=== PATIENT | female | born 1955 | race Caucasian/White ===

== ENCOUNTER → 2016-08-02 | Outpatient (CLI) | payer MEDICARE, OTHER ==
[~2016-08-02] MED LIST: ACHD5005 PO; ALLP300T PO; ASPI-587 PO; ATEN25TA PO; ATENOLOL; ATOR80TA2 PO; ATOR80TA76 PO; BENADRYL; BISA-65 PO; CEFU250T11 PO; CFR250T PO; CHOL2000 PO; CINA60TA PO; COLE3.75 PO; CYCL10TA9 PO; DCS100C PO; DOCU100C37 PO; E400C; E400C PO; ENLP5T PO; EXEN2PEN SQ; EXEN2VIA SQ; EZET10TA5; EZET10TA5 PO; FENOFIBRATE 130 MG PO; FISH OIL; FLUC200T45 PO; HCT25T; HCT25T PO; HYDR-3583 PO; HYDR1TAB PO; HYOS0.1216 PO; HYOS0.1217 PO; INSA70301U SC; INSA70301U SQ; INSU100C4 SQ; INSU100V6 SQ; ISOS60TA3 PO; LANTUS SQ; LOSA25TA5 PO; LOVAZA; LUBI8CAP PO; MECL25TA56 PO; MELA1TAB11 PO; MELA3TAB36 PO; METF-380 PO; METFORMIN PO; METO-310 PO; METO10TA3 PO; METR500T PO; MTF500T PO; NF-URO10 PO; NITR-33 PO; NITR0.4T SL; NITR100C3 PO; OMEG1CAP51 PO; ONDN4T PO; OXYC1CAP3 PO; OXYC1TAB87 PO; PHEN200T27 PO; PRAV80TA2 PO; PRAVASTATIN 10MG PO; RANO10003 PO; SITA100T PO; SITA1TAB6 PO; SULF1TAB38 PO; TICA90TA PO; [UNRECOGNIZED DRUG - OTHER]; [UNRECOGNIZED DRUG - OTHER]; antara PO
--- NOTE | 2016-08-03 19:58 | Diagnostic Imaging Report ---
Bilateral screening mammogram The current study was also evaluated with a Computer Aided Detection (CAD) system. Indication: Screening. No current complaints stated on the questionnaire. COMPARISON: 02/07/13 FINDINGS: The breasts are composed of scattered fibroglandular densities. Benign-appearing calcifications seen. Allowing for technique and positional differences, no suspicious change is seen. IMPRESSION: No significant change. ACR BI-RADS Category 2: Benign findings. Result letter will be mailed to the patient. Note: At least 10% of breast cancer is not imaged by mammography. Dictated by: Dictated on workstation # [id number]
== END ==
LOC: RAD 14:26
PROVIDERS: ATTEND Family Medicine
DX: Z12.31 Encounter for screening mammogram for malignant neoplasm of breast (principal)
CPT/HCPCS: 77067

== ENCOUNTER 2018-01-15 23:27 | Emergency (ER) | payer MEDICARE, OTHER ==
[~2018-01-15] VITALS: Ht 170.2 cm; Wt 99.2 kg
[2018-01-15] MEDS ORDERED: CLOP75TA28 (23:41)
[2018-01-15] MEDS ORDERED: FURO20TA4 (23:41)
[2018-01-15] MEDS ORDERED: ALLO300T2 (23:41)
[2018-01-16] MEDS ORDERED: RX-ONDANSETRON 4 MG ODT (ZOFRAN) PPK #4 SL STA (00:24)
[2018-01-16] MEDS ORDERED: PROMETHAZINE INJ 25 MG/ML (PHENERGAN) AMP IVP ONE (00:30)
[2018-01-16] MEDS ORDERED: ONDANSETRON 4 MG/2 ML (SDV) Z0FRAN IVP ONE (00:30)
[2018-01-16] MEDS ORDERED: RX-HYDROCODONE/APAP 5/325 MG #4 TAB PK PO PRN (00:30)
[2018-01-16] MEDS ORDERED: morphine INJ 10 MG/ML 1ML (SYR OR VIAL) IVP ONE (00:30)
[2018-01-16] MEDS ORDERED: PROM12.59 PO (01:03)
[2018-01-16] MEDS ORDERED: HYDR-3812 PO (01:03)
--- NOTE | 2018-01-16 01:03 | ED Fall/Injury ---
General Chief Complaint: Upper Extremity Stated Complaint: FALL Nursing Triage Note: left wrist pain/deformity s/p fall Source: patient Exam Limitations: no limitations History of Present Illness Date Seen by Provider: Jan 15, 2018 Time Seen by Provider: 23:30 Initial Comments This 62-year-old woman presents to the emergency room via EMS after slipping and falling while walking to her car. She apparently slipped on some ice. She landed on her left wrist resulting in pain and a injury with deformity. She denies striking her head or any other significant injury. Allergies and Home Medications Allergies Coded Allergies: celecoxib (Unverified Allergy, Unknown, 03/08/15) levofloxacin (Verified Allergy, Unknown, 03/08/15) isosorbide (Verified Adverse Reaction, Unknown, severe hypotension, 03/08/15 ) Home Medications Aspirin 81 Mg Tablet.dr, 81 MG PO DAILY, (Reported) Atenolol 25 Mg Tablet, 25 MG PO BID, (Reported) Atorvastatin Calcium 80 Mg Tablet, 80 MG PO HS, (Reported) Bisacodyl 5 Mg Tablet.dr, 10-15 MG PO WEEKLY PRN for CONSTIPATION, (Reported) Cinacalcet HCl 60 Mg Tablet, 60 MG PO DAILY, (Reported) Docusate Sodium 100 Mg Capsule, 200 MG PO WEEKLY PRN for CONSTIPATION, (Reported ) Exenatide Microspheres 2 Mg/0.65 Ml Pen.injctr, 2 MG SQ EVERY SUNDAY, (Reported) Hydrocodone/Acetaminophen 1 Each Tablet, 1 EACH PO Q4-6HR PRN for PAIN-MODERATE Prescribed by: ISHA LUNDY on 01/16/18 0103 Insuln Asp Prt/Insulin Aspart 1 Unit/0.01 Ml Susp, 105 UNITS SQ DAILY, (Reported ) Insuln Asp Prt/Insulin Aspart 1 Unit/0.01 Ml Susp, 100 UNITS SC HS, (Reported) Losartan Potassium 25 Mg Tablet, 25 MG PO DAILY, (Reported) Meclizine Hcl 25 Mg Tablet, 25 MG PO DAILY PRN for DIZZINESS, (Reported) Metoclopramide HCl 10 Mg Tablet, 10 MG PO DAILY, (Reported) Nitroglycerin 0.4 Mg Tab.subl, 0.4 MG SL UD PRN for CHEST PAIN, (Reported) Promethazine HCl 12.5 Mg Tablet, 12.5 MG PO Q6H PRN for NAUSEA/VOMITING Prescribed by: ISHA LUNDY on 01/16/18 0103 Ranolazine 1,000 Mg Tab.sr.12h, 1,000 MG PO BID, (Reported) Ticagrelor 90 Mg Tablet, 90 MG PO BID, (Reported) Patient Home Medication List Home Medication List Reviewed: Yes Review of Systems Review of Systems Constitutional: no symptoms reported Eyes: No Symptoms Reported Ears, Nose, Mouth, Throat: no symptoms reported Respiratory: no symptoms reported Cardiovascular: no symptoms reported Gastrointestinal: no symptoms reported Genitourinary: no symptoms reported Musculoskeletal: see HPI Skin: no symptoms reported Psychiatric/Neurological: No Symptoms Reported Past Wvkefvb-Pxydwn-Ttjsvb Hx Past Med/Social Hx: Reviewed Nursing Past Med/Soc Hx Patient Social History Alcohol Use: Denies Use Recreational Drug Use: No Smoking Status: Never a Smoker 2nd Hand Smoke Exposure: No Recent Foreign Travel: No Contact w/Someone Who Travel: No Recent Infectious Disease Expo: No Recent Hopitalizations: No Immunizations Up To Date Tetanus Booster (TDap): Less than 5yrs Date of Pneumonia Vaccine: Jan 17, 2013 Date of Influenza Vaccine: Dec 03, 2012 Seasonal Allergies Seasonal Allergies: No Past Medical History Surgeries: Yes (HYSTERECTOMY 1997, LAP. PRIETO 5-6 YRS. AGO, T&A-49 YRS. 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) Vertigo : No Reproductive Disorders: No Female Reproductive Disorders: Denies Sexually Transmitted Disease: No HIV/AIDS: No Genitourinary: Yes Kidney Stones Gastrointestinal: Yes (constipation) Gastroesophageal Reflux, Chronic Constipation Musculoskeletal: Yes (arthritis) Arthritis, Back Injury Endocrine: Yes Diabetes, Insulin dep Chronic Ear Infection Hearing Impairment: Hard of Hearing Cancer: No Psychosocial: No Integumentary: No (healing cyst removal) Blood Disorders: No Adverse Reaction/Blood Tranf: No Family Medical History Cancer (lung and ovarian) 09 BROTHER, Onset:30's - 40 09 SISTER, Onset:60 years & older Congenital heart disease (mitral valve prolapse) 09 SISTER 09 SISTER Congestive heart failure 03 FATHER, Onset:60 years & older 03 MOTHER, Onset:50's - 60 09 SISTER, Onset:60 years & older Family history: Arthritis 03 MOTHER, Onset:60 years & older Family history: Diabetes mellitus 03 FATHER, Onset:60 years & older 09 SISTER, Onset:50's - 60 Family history: Gastrointestinal disease 03 FATHER, Onset:50's - 60 Hereditary disease (HTN) 09 SISTER, Onset:40's - 50 History of - disorder (Urinary problems) 09 SISTER, Onset:60 years & older 09 SISTER, Onset:20's - 25 History of - respiratory disease (asthma) 09 SISTER Hypercholesterolemia 09 SISTER, Onset:50's - 60 Psychotic disorder (anxiety) 09 SISTER, Onset:30's - 40 Heart Disease Physical Exam Vital Signs Vital Signs - First Documented 01/15/18 23:27 Temp 98.7 Pulse 73 Resp 18 B/P (MAP) 215/116 (149) Pulse Ox 97 O2 Delivery Room Air Capillary Refill : Less Than 3 Seconds Height, Weight, BMI Height: 5'7.00" Weight: 218lbs. 9.6oz. 99.185072ih; 34.45 BMI Method:Estimated General Appearance: WD/WN, mild distress HEENT: normal ENT inspection Neck: normal inspection Cardiovascular: regular rate, rhythm, no edema, no murmur Respiratory: lungs clear, normal breath sounds, no respiratory distress Extremities: other (pain, deformity, and swelling of the left wrist. Radial pulse intact. Movement, sensation, and capillary refill intact in the fingers. No significant tenderness in the hand or elbow.) Neurologic/Psychiatric: clinical safety specialist II-XII nml as tested, no motor/sensory deficits, alert, normal mood/affect, oriented x 3 Skin: normal color, warm/dry J Luis Coma Score Best Eye Response: (4) Open Spontaneously Best Verbal Response: (5) Oriented Best Motor Response: (6) Obeys Commands Robinson Total: 15 Procedures/Interventions Splinting and Joint Reduction : Pre-Proc Neuro Vasc Exam: normal Post-Proc Neuro Vasc Exam: normal Pre-Procedure NV Exam: Yes post joint reduction film: joint reduced (slight reduction noted on postreduction x-ray) Progress Patient was treated with IV narcotic pain medications and antiemetics. Sugar tong splint was applied with attempt to reduce the fracture and the volar direction. Splint application was successful with intact sensation and radial pulse after application. Splint was placed in a sling. Hand-Made Type: fiberglass Progress/Results/Core Measures Results/Orders My Orders Orders - ISHA BRAVO MD Wrist, Left, 3 Views Or More (01/15/18 23:35) Rx-Hydrocodone/Apap 5-325 Mg (Rx-Vicodin (01/16/18 00:30) Morphine Injection (Morphine Injection (01/16/18 00:30) Ondansetron Injection (Zofran Injectio (01/16/18 00:30) Rx-Ondansetron Po (Rx-Zofran Po) (01/16/18 00:24) Promethazine Injection (Phenergan Injec (01/16/18 00:30) Sling (01/16/18 01:10) Wrist, Left, 3 Views Or More (01/16/18 00:57) Iv Push Warp Changer Ed (01/15/18 ) Medications Given in ED Vital Signs/I&O 01/15/18 01/16/18 01/16/18 23:27 00:37 01:15 Temp 98.7 98.7 98.5 Pulse 73 67 Resp 18 16 B/P (MAP) 215/116 (149) 157/98 (117) Pulse Ox 97 95 O2 Delivery Room Air Room Air Blood Pressure Mean: 149 Progress Progress Note : Progress Note Fractures were identified on x-ray. Case was discussed with Dr. Villa. A sugar tong splint was applied after treatment with pain medication and antiemetics. An attempt to provide some level are reduction was made during splint application. There was minimal improvement in angulation on postreduction x-ray. Diagnostic Imaging Diagonstic Imaging: Xray Plain Films/CT/US/NM/MRI: other (left wrist) Comments Left wrist x-ray viewed by me. Report not yet available. There is a comminuted , impacted, angulated and displaced fracture of the left distal radius. Diagonstic Imaging: Xray Plain Films/CT/US/NM/MRI: other (left wrist) Comments There was slight improvement in angulation after attempt at reduction of the left wrist fracture and splint placement. Departure Impression Primary Impression: Left wrist fracture Qualified Codes: S62.102A - Fracture of unspecified carpal bone, left wrist, initial encounter for closed fracture Additional Impression: Fall on same level from tripping as cause of accidental injury Disposition: 01 HOME, SELF-CARE Condition: Improved Departure-Patient Inst. Decision time for Depature: 00:20 Referrals: PATRICE RODNEY MD (PCP) Primary Care Physician BRITTANY POOL MD (Family) Primary Care Physician FAUSTINO VILLA MD Patient Instructions: SPLINT CARE, Wrist Fracture (DC) Add. Discharge Instructions: For more mild pain you may take Tylenol (acetaminophen) up to 1000 mg every 6 hours as needed. For more severe pain you may take hydrocodone as prescribed. For nausea take Zofran (ondansetron) dissolved under the tongue every 4 hours as needed. Follow up with Dr. Villa as soon as possible. Keep the left arm in the sling and splint. You may elevate on pillows and ice in 20 minute intervals to help with pain and swelling. Keep the splint clean and dry. Return to care if you have any problems or concerns. All discharge instructions reviewed with patient and/or family. Voiced understanding. Scripts Promethazine HCl (Promethazine HCl) 12.5 Mg Tablet 12.5 MG PO Q6H PRN for NAUSEA/VOMITING, #10 TAB Prov: ISHA BRAVO MD 01/16/18 Hydrocodone/Acetaminophen (Hydrocodone-Acetamin 5-325 mg) 1 Each Tablet 1 EACH PO Q4-6HR PRN for PAIN-MODERATE, #10 TAB Prov: ISHA BRAVO MD 01/16/18 Copy Copies To 1: FAUSTINO VILLA MD, JOSHUA T MD Jan 16, 2018 01:03
[2018-01-16 01:15] VITALS: BP 157/98
--- NOTE | 2018-01-16 06:48 | Diagnostic Imaging Report ---
CLINICAL INDICATION: Patient with post reduction of left wrist fracture. EXAM: X-ray of the left wrist, three views. COMPARISON: X-ray left wrist dated 01/15/2018 at 2348 hours. FINDINGS AND IMPRESSION: 1: There is slight improved alignment and position of the comminuted impacted intra-articular fracture of the distal radius. There is persistent distraction and impaction of the fracture fragment seen. There is 4 mm of positive ulnar variance again seen. 2: Interval placement of cast material seen overlying the left wrist. Dictated by: Dictated on workstation # [id number]
--- NOTE | 2018-01-16 06:49 | Diagnostic Imaging Report ---
Clinical indication: Patient fell and complains of left wrist pain. Exam: X-ray of the left wrist, 3 views. Comparison: None. Findings and impression: 1: There is a severely comminuted, impacted, intra-articular fracture of distal radius. There is roughly 1.8 cm of impaction of the fracture and at least 3 mm of radial directed subluxation of the distal fracture fragment. There is volar apex angulation of the distal radial fracture fragments with distraction of the fracture in a ventral and dorsal directions. There is soft tissue swelling adjacent to the wrist. 2: There is roughly 8 mm of positive ulnar variance from the impacted fracture of the distal radius. There is concern for disruption of the distal radial ulnar joint. 3: There is no other fracture seen on this exam. 4: There is degenerative spurs and sclerosis of the first CMC joint. Dictated by: Dictated on workstation # [id number]
== END 2018-01-16 01:15 | disposition home or self-care (01) ==
LOC: EDUNIT# 23:27 → ER 23:28
DX: S52.572A Other intraarticular fracture of lower end of left radius, initial encounter for closed fracture (principal); G47.30 Sleep apnea, unspecified; I25.2 Old myocardial infarction; I25.10 Atherosclerotic heart disease of native coronary artery without angina pectoris; E78.00 Pure hypercholesterolemia, unspecified; I10 Essential (primary) hypertension; K21.9 Gastro-esophageal reflux disease without esophagitis; E11.9 Type 2 diabetes mellitus without complications; Z80.1 Family history of malignant neoplasm of trachea, bronchus and lung; Z80.41 Family history of malignant neoplasm of ovary; Z82.49 Family history of ischemic heart disease and other diseases of the circulatory system; Z87.19 Personal history of other diseases of the digestive system; Z87.442 Personal history of urinary calculi; Z88.8 Allergy status to other drugs, medicaments and biological substances; Z79.82 Long term (current) use of aspirin; Z79.4 Long term (current) use of insulin; Z90.710 Acquired absence of both cervix and uterus; Z90.89 Acquired absence of other organs; W01.0XXA Fall on same level from slipping, tripping and stumbling without subsequent striking against object, initial encounter
CPT/HCPCS: 25565; 29105; 73110; 96374; 96375

== ENCOUNTER → 2018-01-17 | Outpatient (CLI) | payer MEDICARE, OTHER ==
[~2018-01-17] MED LIST changes: +ALLO300T2; +CLOP75TA28; +FURO20TA4; +HYDR-3812 PO; +PROM12.59 PO
== END | disposition home or self-care (01) ==
LOC: PREOP 05:36
PROVIDERS: ATTEND Orthopaedic Surgery
DX: Z01.818 Encounter for other preprocedural examination (principal)

== ENCOUNTER 2018-06-05 17:13 | Emergency (ER) | payer MEDICARE, OTHER ==
[~2018-06-05] VITALS: Ht 165.1 cm; Wt 81.6 kg
--- OUTSIDE RECORDS SUMMARY | 2018-06-05 17:21 | XMS REPORT | Continuity of Care Document ---
Author Author [facility] Organization [facility] Address Unknown Phone Unavailable Allergies Active Description Code Type Severity Reaction Onset Reported/Identified Relationship to Patient Clinical Status Yes celecoxib [id number] Drug Allergy Unknown N/A 03/08/2015 Yes isosorbide [id number] Drug Allergy Unknown severe hypotens 03/08/2015 Yes levofloxacin [id number] Drug Allergy Unknown N/A 03/08/2015 Medications There is no data. Problems Date Dx Coded Attending Type Code Diagnosis Diagnosed By 11/11/2009 Ot 592.0 11/11/2009 Ot 592.1 01/04/2010 Ot 250.00 01/04/2010 Ot 401.9 01/04/2010 Ot 553.3 01/04/2010 Ot 592.0 01/04/2010 Ot 592.1 02/03/2010 Ot 592.0 03/07/2010 Ot 250.02 03/07/2010 Ot 723.4 03/07/2010 Ot 784.0 03/07/2010 Ot V58.69 03/09/2010 Ot 592.0 04/11/2010 Ot 564.00 04/11/2010 Ot 569.42 10/13/2010 Ot 592.0 10/13/2010 Ot 599.0 10/13/2010 Ot 789.09 12/12/2011 Ot 564.00 UNSPEC CONSTIPATION 01/18/2013 FAUSTINO STEELE MD Ot 250.02 DIAB SHIRLENE WO COMPL, TYPE II OR UNSPEC TY 01/18/2013 FAUSTINO STEELE MD Ot 272.4 HYPERLIPIDEMIA NEC/NOS 01/18/2013 FAUSTINO STEELE MD Ot 308.1 STRESS REACTION, FUGUE 01/18/2013 FAUSTINO STEELE MD Ot 401.9 HYPERTENSION NOS 01/18/2013 FAUSTINO STEELE MD Ot 526.4 INFLAMMATION OF JAW 01/18/2013 FAUSTINO STEELE MD Ot 527.5 SIALOLITHIASIS 10/02/2013 MAYRA LOPEZ, [facility] T Ot 728.87 MUSCLE WEAKNESS (GENERALIZED) 10/02/2013 MAYRA LOPEZ, KAPIL Burgess Ot 780.4 DIZZINESS AND GIDDINESS 10/02/2013 KAPIL NUNEZ MD Ot V57.1 PHYSICAL THERAPY NEC 12/21/2013 BRITTANY POOL MD Ot 250.00 DIAB SHIRLENE WO COMPL, TYPE II OR UNSPEC TY 12/21/2013 BRITTANY POOL MD Ot 272.4 HYPERLIPIDEMIA NEC/NOS 12/21/2013 BRITTANY POOL MD Ot 401.9 HYPERTENSION NOS 12/21/2013 BRITTANY POOL MD Ot 410.11 AC MYOCARD INFARC OTH ANTER WALL,INIT EP 12/21/2013 BRITTANY POOL MD Ot 410.71 AC MYOCARDIAL INFARCT,SUBENDO INFARCT,IN 12/21/2013 BRITTANY POOL MD Ot 414.01 CORONARY ATHEROSCLEROSIS OF [place] CORON 12/21/2013 BRITTANY POOL MD Ot 427.9 CARDIAC DYSRHYTHMIA NOS 12/21/2013 BRITTANY POOL MD Ot 716.90 ARTHROPATHY NOS-UNSPEC 12/21/2013 BRITTANY POOL MD Ot V15.88 HISTORY OF FALL 12/21/2013 BRITTANY POOL MD Ot V58.67 LONG-TERM (CURRENT) USE OF INSULIN 02/17/2014 PATRICE RODNEY MD Ot 786.2 02/23/2014 BLADIMIR STEVENSON MD Ot 592.9 03/27/2014 BRITTANY POOL MD Ot 410.92 AC MYOCARDIAL INFARCT,UNSPEC SITE,SUBSEQ 03/27/2014 BRITTANY POOL MD Ot V57.89 REHABILITATION PROC NEC 03/30/2014 BRITTANY POOL MD Ot 410.92 03/30/2014 BRITTANY POOL MD Ot V57.89 04/27/2014 BLADIMIR STEVENSON MD Ot 592.9 URINARY CALCULUS NOS 05/23/2014 PATRICE RODNEY MD Ot 250.00 DIAB SHIRLENE WO COMPL, TYPE II OR UNSPEC TY 05/23/2014 PATRICE RODNEY MD Ot 272.4 HYPERLIPIDEMIA NEC/NOS 05/23/2014 PATRICE RODNEY MD Ot 327.23 OBSTRUCTIVE SLEEP APNEA (ADULT) (PEDIATR 05/23/2014 PATRICE RODNEY MD Ot 403.90 HYPTNSV CHR KID DIS, UNSPEC, W CHR KD ST 05/23/2014 PATRICE RODNEY MD Ot 414.01 CORONARY ATHEROSCLEROSIS OF [place] CORON 05/23/2014 PATRICE RODNEY MD Ot 585.9 CHRONIC KIDNEY DISEASE, UNSPECIFIED 05/23/2014 PATRICE RODNEY MD Ot 729.5 PAIN IN LIMB 05/23/2014 PATRICE RODNEY MD Ot 780.79 OTH MALAISE FATIGUE 05/23/2014 PATRICE RODNEY MD Ot V04.81 ND FOR PROPHYLACTIC VACCIN AND INOCULATI 05/23/2014 PATRICE RODNEY MD Ot V58.67 LONG-TERM (CURRENT) USE OF INSULIN 02/05/2015 MARIETTA ENAMORADO MD Ot I20.9 02/17/2015 PATRICE RODNEY MD, Ot G47.33 OBSTRUCTIVE SLEEP APNEA (ADULT) (PEDIATR 02/17/2015 PATRICE RODNEY MD Ot G47.61 PERIODIC LIMB MOVEMENT DISORDER 03/03/2015 MARIETTA ENAMORADO MD Ot I20.9 03/08/2015 MARIETTA ENAMORADO MD Ot I20.9 03/08/2015 MARIETTA ENAMORADO MD Ot I20.9 03/08/2015 Ot 592.0 03/08/2015 Ot 592.9 03/08/2015 Ot 592.0 03/08/2015 Ot 592.9 03/09/2015 BRITTANY POOL MD Ot E11.9 TYPE 2 DIABETES MELLITUS WITHOUT COMPLIC 03/09/2015 BRITTANY POOL MD Ot E78.5 HYPERLIPIDEMIA, UNSPECIFIED 03/09/2015 BRITTANY POOL MD Ot I12.9 HYPERTENSIVE CHRONIC KIDNEY DISEASE W ST 03/09/2015 BRITTANY POOL MD Ot I21.4 NON-ST ELEVATION (NSTEMI) MYOCARDIAL INF 03/09/2015 BRITTANY POOL MD Ot I25.119 ATHSCL HEART DISEASE OF [place] COR ART W 03/09/2015 BRITTANY POOL MD Ot I47.1 SUPRAVENTRICULAR TACHYCARDIA 03/09/2015 BRITTANY POOL MD Ot K59.00 CONSTIPATION, UNSPECIFIED 03/09/2015 BRITTANY POOL MD Ot N18.9 CHRONIC KIDNEY DISEASE, UNSPECIFIED 03/09/2015 CORINE LOPEZ, BRITTANY Oconnro Ot R00.2 PALPITATIONS 03/09/2015 CORINE LOPEZ, BRITTANY Oconnor Ot Z79.4 [employer] (CURRENT) USE OF INSULIN 03/11/2015 EMILIE PA, BETHANIE Jimenez Ot E11.9 03/11/2015 EMILIE PA, BETHANIE K Ot E78.2 03/11/2015 EMILIE PA, BETHANIE K Ot I10 03/11/2015 EMILIE PA, BETHANIE K Ot I25.10 03/11/2015 EMILIE PA, BETHANIE K Ot Z79.4 03/17/2015 KELSEA LOPEZ, MARIETTA Palomino Ot I20.9 03/17/2015 EMILIE PA, BETHANIE K Ot E11.9 03/17/2015 EMILIE PA, BETHANIE K Ot E78.2 03/17/2015 EMILIE PA, BETHANIE K Ot I10 03/17/2015 EMILIE PA, BETHANIE K Ot I25.10 03/17/2015 EMILIE PA, BETHANIE Jimenez Ot Z79.4 04/30/2015 Ot 592.0 04/30/2015 Ot V67.09 04/30/2015 Ot 592.0 04/30/2015 Ot 252.00 04/30/2015 Ot 592.0 04/30/2015 Ot 592.1 04/30/2015 Ot V67.09 04/30/2015 Ot 592.0 04/30/2015 Ot 250.00 04/30/2015 Ot 433.10 04/30/2015 Ot 272.4 04/30/2015 Ot 401.9 04/30/2015 Ot 591 04/30/2015 Ot 594.1 04/30/2015 Ot 785.6 04/30/2015 Ot 789.09 04/30/2015 Ot 250.00 04/30/2015 Ot 268.9 04/30/2015 Ot 272.4 04/30/2015 Ot 401.9 04/30/2015 Ot 592.0 04/30/2015 Ot 789.2 04/30/2015 Ot 272.4 04/30/2015 Ot 272.4 04/30/2015 Ot V72.84 04/30/2015 Ot 272.4 04/30/2015 Ot 250.00 04/30/2015 Ot 592.9 04/30/2015 Ot 729.5 04/30/2015 Ot 272.4 04/30/2015 RASHAUN LOPEZ, PATRICE Oconnor Ot 527.5 04/30/2015 GEOFF LOPEZ, RENE Ot 706.2 04/30/2015 GEOFF LOPEZ, RENE Ot V72.63 04/30/2015 GEOFF LOPEZ, RENE Ot V74.8 04/30/2015 JES LOPEZ, PHYLLIS G Ot V76.12 04/30/2015 RASHAUN LOPEZ, PATRICE Oconnor Ot 715.36 04/30/2015 RASHAUN LOPEZ, PATRICE Oconnor Ot 719.46 04/30/2015 RASHAUN LOPEZ, PATRICE Oconnor Ot 719.47 04/30/2015 RASHAUN OLPEZ, PATRICE Oconnor Ot 824.8 04/30/2015 RASHAUN LOPEZ, PATRICE Oconnor Ot E888.9 04/30/2015 RASHAUN LOPEZ, PATRICE Oconnor Ot V15.88 04/30/2015 RASHAUN LOPEZ, PATRICE Oconnor Ot 298.9 04/30/2015 RASHAUN LOPEZ, PATRICE Oconnor Ot 780.93 04/30/2015 RASHAUN LOPEZ, PATRICE Oconnor Ot 793.0 04/30/2015 RASHAUN LOPEZ, PATRICE Oconnor Ot 298.9 04/30/2015 RASHAUN LOPEZ, PATRICE Oconnor Ot 780.93 04/30/2015 RASHAUN LOPEZ, PATRICE Oconnor Ot 786.2 04/30/2015 Ot 592.9 04/30/2015 MARIETTA ENAMORADO MD Ot I20.9 04/30/2015 BETHANIE HUITRON Ot E11.9 04/30/2015 BETHANIE HUITRON Ot E78.2 04/30/2015 BETHANIE HUITRON Ot I10 04/30/2015 BETHANIE HUITRON Ot I25.10 04/30/2015 BETHANIE HUITRON Ot Z79.4 05/04/2015 MARIETTA ENAMORADO MD Ot I20.9 ANGINA PECTORIS, UNSPECIFIED 05/10/2015 Ot 592.0 05/10/2015 Ot 252.00 05/10/2015 Ot 592.0 05/10/2015 Ot 592.1 05/10/2015 Ot V67.09 05/10/2015 Ot 592.0 05/10/2015 Ot 250.00 05/10/2015 Ot 433.10 05/10/2015 Ot 272.4 05/10/2015 Ot 401.9 05/10/2015 Ot 591 05/10/2015 Ot 594.1 05/10/2015 Ot 785.6 05/10/2015 Ot 789.09 05/10/2015 Ot 250.00 05/10/2015 Ot 268.9 05/10/2015 Ot 272.4 05/10/2015 Ot 401.9 05/10/2015 Ot 592.0 05/10/2015 Ot 789.2 05/10/2015 Ot 272.4 05/10/2015 Ot 272.4 05/10/2015 Ot V72.84 05/10/2015 Ot 272.4 05/10/2015 Ot 250.00 05/10/2015 Ot 592.9 05/10/2015 Ot 729.5 05/10/2015 Ot 272.4 05/10/2015 RASHAUN LOPEZ, PATRICE Oconnor Ot 527.5 05/10/2015 GEOFF LOPEZ, RENE Ot 706.2 05/10/2015 GEOFF LOPEZ, RENE Ot V72.63 05/10/2015 GEOFF LOPEZ, RENE Ot V74.8 05/10/2015 JES LOPEZ, PHYLLIS Mcgraw Ot V76.12 05/10/2015 RASHAUN LOPEZ, PATRICE Oconnor Ot 715.36 05/10/2015 RASHAUN LOPEZ, PATRICE Oconnor Ot 719.46 05/10/2015 PATRICE RODNEY MD Ot 719.47 05/10/2015 PATRICE RODNEY MD Ot 824.8 05/10/2015 PATRICE RODNEY MD Ot E888.9 05/10/2015 PATRICE RODNEY MD Ot V15.88 05/10/2015 PATRICE RODNEY MD Ot 298.9 05/10/2015 PATRICE RODNEY MD Ot 780.93 05/10/2015 PATRICE RODNEY MD Ot 793.0 05/10/2015 RASHAUN LOPEZ, PATRICE Oconnor Ot 298.9 05/10/2015 RASHAUN LOPEZ, PATRICE Oconnor Ot 780.93 05/10/2015 RASHAUN LOPEZ, PATRICE Oconnor Ot 786.2 05/10/2015 Ot 592.9 05/10/2015 KELSEA LOPEZ, MARIETTA Paolmino Ot I20.9 05/10/2015 EMILIE PA, BETHANIE K Ot E11.9 05/10/2015 EMILIE PA, BETHANIE K Ot E78.2 05/10/2015 EMILIE PA, BETHANIE K Ot I10 05/10/2015 PASTORA-ANTOINE PA, BETHANIE K Ot I25.10 05/10/2015 EMILIE PA, BETHANIE K Ot Z79.4 05/18/2015 KELSEA LOPEZ, MARIETTA Palomino Ot I20.9 ANGINA PECTORIS, UNSPECIFIED 07/27/2016 EMILIE PA, BETHANIE K Ot E11.9 TYPE 2 DIABETES MELLITUS WITHOUT COMPLIC 07/27/2016 EMILIE PA, BETHANIE K Ot E78.2 MIXED HYPERLIPIDEMIA 07/27/2016 EMILIE RAYMUNDO, BETHANIE K Ot I10 ESSENTIAL (PRIMARY) HYPERTENSION 07/27/2016 EMILIE PA, BETHANIE K Ot I25.10 ATHSCL HEART DISEASE OF [place] CORONARY 07/27/2016 EMILIE RAYMUNDO, BETHANIE K Ot Z79.4 [employer] (CURRENT) USE OF INSULIN 07/27/2016 MARIETTA ENAMORADO MD Ot I20.9 ANGINA PECTORIS, UNSPECIFIED 07/27/2016 EMILIE RAYMUNDO, BETHANIE K Ot E11.9 TYPE 2 DIABETES MELLITUS WITHOUT COMPLIC 07/27/2016 EMILIE RAYMUNDO, BETHANIE K Ot E78.2 MIXED HYPERLIPIDEMIA 07/27/2016 EMILIE RAYMUNDO, BETHANIE K Ot I10 ESSENTIAL (PRIMARY) HYPERTENSION 07/27/2016 EMILIE RAYMUNDO, BETHANIE K Ot I25.10 ATHSCL HEART DISEASE OF [place] CORONARY 07/27/2016 EMILIE RAYMUNDO, BETHANIE K Ot Z79.4 NURSING HOME (CURRENT) USE OF INSULIN 07/27/2016 MARIETTA ENAMORADO MD Ot I20.9 ANGINA PECTORIS, UNSPECIFIED 08/04/2016 PATRICE RODNEY MD Ot Z12.31 ENCNTR SCREEN MAMMOGRAM FOR MALIGNANT NE 08/04/2016 PATRICE RODNEY MD Ot Z12.31 ENCNTR SCREEN MAMMOGRAM FOR MALIGNANT NE 08/04/2016 PATRICE RODNEY MD Ot Z12.31 ENCNTR SCREEN MAMMOGRAM FOR MALIGNANT NE 08/04/2016 PATRICE RODNEY MD Ot Z12.31 ENCNTR SCREEN MAMMOGRAM FOR MALIGNANT NE 08/22/2016 PATRICE RODNEY MD, Ot Z12.31 ENCNTR SCREEN MAMMOGRAM FOR MALIGNANT NE 10/19/2016 BETHANIE HUITRON Ot E11.9 TYPE 2 DIABETES MELLITUS WITHOUT COMPLIC 10/19/2016 BETHANIE HUITRON Ot E78.2 MIXED HYPERLIPIDEMIA 10/19/2016 BETHANIE HUITRON Ot I10 ESSENTIAL (PRIMARY) HYPERTENSION 10/19/2016 BETHANIE HUITRON Ot I25.10 ATHSCL HEART DISEASE OF [place] CORONARY 10/19/2016 BETHANIE HUITRON Ot Z79.4 NURSING HOME (CURRENT) USE OF INSULIN 10/19/2016 Ot 592.0 CALCULUS OF KIDNEY 10/19/2016 Ot 789.2 SPLENOMEGALY 10/19/2016 Ot 272.4 HYPERLIPIDEMIA NEC/NOS 10/19/2016 Ot 272.4 HYPERLIPIDEMIA NEC/NOS 10/19/2016 Ot V72.84 EXAM PRE- OPERATIVE NOS 10/19/2016 Ot 272.4 HYPERLIPIDEMIA NEC/NOS 10/19/2016 Ot 250.00 DIAB SHIRLENE WO COMPL, TYPE II OR UNSPEC TY 10/19/2016 Ot 592.9 URINARY CALCULUS NOS 10/19/2016 Ot 729.5 PAIN IN LIMB 10/19/2016 Ot 272.4 HYPERLIPIDEMIA NEC/NOS 10/19/2016 PATRICE RODNEY MD Ot 527.5 SIALOLITHIASIS 10/19/2016 RENE TELLEZ MD Ot 706.2 SEBACEOUS CYST 10/19/2016 RENE TELLEZ MD Ot V72.63 PRE-PROCEDURAL LABORATORY EXAMINATION 10/19/2016 RENE TELLEZ MD Ot V74.8 SCREEN-BACTERIAL DIS NEC 10/19/2016 PHYLLIS ANDRE MD Ot V76.12 OTH SCREEN MAMMO-MALIGN NEOPLASM OF [place] 10/19/2016 PATRICE RODNEY MD, Ot 715.36 LOC OSTEOARTH NOS-L/LEG 10/19/2016 PATRICE RODNEY MD, Ot 719.46 JOINT PAIN-L/LEG 10/19/2016 PATRICE RODNEY MD, Ot 719.47 JOINT PAIN-ANKLE 10/19/2016 PATRICE RODNEY MD Ot 824.8 FX ANKLE NOS-CLOSED 10/19/2016 PATRICE RODNEY MD Ot E888.9 FALL NOS 10/19/2016 PATRICE RODNEY MD, Ot V15.88 HISTORY OF FALL 10/19/2016 PATRICE RODNEY MD Ot 298.9 PSYCHOSIS NOS 10/19/2016 PATRICE ORDNEY MD Ot 780.93 MEMORY LOSS 10/19/2016 PATRICE RODNEY MD Ot 793.0 NOSP (ABN) FINDINGS ON RADIOLOGICAL OT 10/19/2016 PATRICE RODNEY MD Ot 298.9 PSYCHOSIS NOS 10/19/2016 PATRICE RODNEY MD Ot 780.93 MEMORY LOSS 10/19/2016 PATRICE RODNEY MD, Ot 786.2 COUGH 10/19/2016 Ot 592.9 URINARY CALCULUS NOS 10/19/2016 BETHANIE HUITRON Ot E11.9 TYPE 2 DIABETES MELLITUS WITHOUT COMPLIC 10/19/2016 BETHANIE HUITRON Ot E78.2 MIXED HYPERLIPIDEMIA 10/19/2016 BETHANIE HUITRON Ot I10 ESSENTIAL (PRIMARY) HYPERTENSION 10/19/2016 BETHANIE HUITRON Ot I25.10 ATHSCL HEART DISEASE OF [place] CORONARY 10/19/2016 BETHANIE HUITRON Ot Z79.4 NURSING HOME (CURRENT) USE OF INSULIN 01/16/2018 ISHA BRAVO MD, Ot E11.9 TYPE 2 DIABETES MELLITUS WITHOUT COMPLIC 01/16/2018 ISHA BRAVO MD, Ot E78.00 PURE HYPERCHOLESTEROLEMIA, UNSPECIFIED 01/16/2018 ISHA BRAVO MD, Ot G47.30 SLEEP APNEA, UNSPECIFIED 01/16/2018 ISHA BRAVO MD Ot I10 ESSENTIAL (PRIMARY) HYPERTENSION 01/16/2018 ISHA BRAVO MD, Ot I25.10 ATHSCL HEART DISEASE OF [place] CORONARY 01/16/2018 ISHA BRAVO MD, Ot I25.2 OLD MYOCARDIAL INFARCTION 01/16/2018 ISHA BRAVO MD, Ot K21.9 GASTRO-ESOPHAGEAL REFLUX DISEASE WITHOUT 01/16/2018 ISHA BRAVO MD, Ot M25.532 PAIN IN LEFT WRIST 01/16/2018 ISHA BRAVO MD, Ot S52.572A OTH INTARTIC FRACTURE OF LOWER END OF LE 01/16/2018 ISHA BRAVO MD, Ot W01.0XXA FALL SAME LEV FROM SLIP/TRIP W/O STRIKE 01/16/2018 ISHA BRAVO MD, Ot Z79.4 [employer] (CURRENT) USE OF INSULIN 01/16/2018 ISHA BRAVO MD, Ot Z79.82 [employer] (CURRENT) USE OF ASPIRIN 01/16/2018 ISHA BRAVO MD, Ot Z80.1 FAMILY HISTORY OF MALIG NEOPLASM OF [place] 01/16/2018 ISHA BRAVO MD, Ot Z80.41 FAMILY HISTORY OF MALIGNANT NEOPLASM OF 01/16/2018 ISHA BRAVO MD, Ot Z82.49 FAMILY HX OF ISCHEM HEART DIS AND OTH DI 01/16/2018 ISHA BRAVO MD, Ot Z87.19 PERSONAL HISTORY OF OTHER DISEASES OF TH 01/16/2018 ISHA BRAVO MD, Ot Z87.442 PERSONAL HISTORY OF URINARY CALCULI 01/16/2018 ISHA BRAVO MD, Ot Z88.8 ALLERGY STATUS TO OT DRUG/MEDS/BIOL SUB 01/16/2018 ISHA BRAVO MD, Ot Z90.710 ACQUIRED ABSENCE OF BOTH CERVIX AND UTER 01/16/2018 ISHA BRAVO MD, Ot Z90.89 ACQUIRED ABSENCE OF OTHER ORGANS 01/16/2018 BETHANIE HUITRON Ot E11.9 TYPE 2 DIABETES MELLITUS WITHOUT COMPLIC 01/16/2018 BETHANIE HUITRON Ot E78.2 MIXED HYPERLIPIDEMIA 01/16/2018 BETHANIE HUITRON Ot I10 ESSENTIAL (PRIMARY) HYPERTENSION 01/16/2018 BETHANIE HUITRON Ot I25.10 ATHSCL HEART DISEASE OF [place] CORONARY 01/16/2018 BETHANIE HUITRON Ot Z79.4 NURSING HOME (CURRENT) USE OF INSULIN 01/16/2018 KELSEA LOPEZ, MARIETTA Palomino Ot I20.9 ANGINA PECTORIS, UNSPECIFIED 01/16/2018 RASHAUN LOPEZ, PATRICE Oconnor Ot Z12.31 ENCNTR SCREEN MAMMOGRAM FOR MALIGNANT NE 01/17/2018 ISHA BRAVO MD Ot E11.9 TYPE 2 DIABETES MELLITUS WITHOUT COMPLIC 01/17/2018 ISHA BRAVO MD Ot E78.00 PURE HYPERCHOLESTEROLEMIA, UNSPECIFIED 01/17/2018 ISHA BRAVO MD Ot G47.30 SLEEP APNEA, UNSPECIFIED 01/17/2018 ISHA BRAVO MD Ot I10 ESSENTIAL (PRIMARY) HYPERTENSION 01/17/2018 ISHA BRAVO MD, Ot I25.10 ATHSCL HEART DISEASE OF [place] CORONARY 01/17/2018 ISHA BRAVO MD, Ot I25.2 OLD MYOCARDIAL INFARCTION 01/17/2018 ISHA BRAVO MD, Ot K21.9 GASTRO-ESOPHAGEAL REFLUX DISEASE WITHOUT 01/17/2018 ISHA BRAVO MD Ot M25.532 PAIN IN LEFT WRIST 01/17/2018 ISHA BRAVO MD, Ot S52.572A OTH INTARTIC FRACTURE OF LOWER END OF LE 01/17/2018 ISHA BRAVO MD Ot W01.0XXA FALL SAME LEV FROM SLIP/TRIP W/O STRIKE 01/17/2018 ISHA BRAVO MD Ot Z79.4 [employer] (CURRENT) USE OF INSULIN 01/17/2018 ISHA BRAVO MD Ot Z79.82 NURSING HOME (CURRENT) USE OF ASPIRIN 01/17/2018 ISHA BRAVO MD, Ot Z80.1 FAMILY HISTORY OF MALIG NEOPLASM OF [place] 01/17/2018 BRUEGGEMANN MD, ISHA T Ot Z80.41 FAMILY HISTORY OF MALIGNANT NEOPLASM OF 01/17/2018 ISHA BRAVO MD, Ot Z82.49 FAMILY HX OF ISCHEM HEART DIS AND OTH DI 01/17/2018 ISHA BRAVO MD, Ot Z87.19 PERSONAL HISTORY OF OTHER DISEASES OF TH 01/17/2018 ISHA BRAVO MD, Ot Z87.442 PERSONAL HISTORY OF URINARY CALCULI 01/17/2018 ISHA BRAVO MD, Ot Z88.8 ALLERGY STATUS TO [facility] DRUG/MEDS/BIOL SUB 01/17/2018 IHSA BRAVO MD, Ot Z90.710 ACQUIRED ABSENCE OF BOTH CERVIX AND UTER 01/17/2018 ISHA BRAVO MD, Ot Z90.89 ACQUIRED ABSENCE OF OTHER ORGANS 01/18/2018 JEAN PAUL LOPEZ, FAUSTINO Zamora Ot Z01.818 ENCOUNTER FOR OTHER PREPROCEDURAL EXAMIN 02/05/2018 ISHA BRAVO MD Ot E11.9 TYPE 2 DIABETES MELLITUS WITHOUT COMPLIC 02/05/2018 ISHA BRAVO MD, Ot E78.00 PURE HYPERCHOLESTEROLEMIA, UNSPECIFIED 02/05/2018 ISHA BRAVO MD, Ot G47.30 SLEEP APNEA, UNSPECIFIED 02/05/2018 ISHA BRAVO MD, Ot I10 ESSENTIAL (PRIMARY) HYPERTENSION 02/05/2018 ISHA BRAVO MD, Ot I25.10 ATHSCL HEART DISEASE OF [place] CORONARY 02/05/2018 ISHA BRAVO MD, Ot I25.2 OLD MYOCARDIAL INFARCTION 02/05/2018 ISHA BRAVO MD, Ot K21.9 GASTRO-ESOPHAGEAL REFLUX DISEASE WITHOUT 02/05/2018 ISHA BRAVO MD, Ot M25.532 PAIN IN LEFT WRIST 02/05/2018 ISHA BRAVO MD, Ot S52.572A OT INTARTIC FRACTURE OF LOWER END OF LE 02/05/2018 ISHA BRAVO MD, Ot W01.0XXA FALL SAME LEV FROM SLIP/TRIP W/O STRIKE 02/05/2018 ISHA BRAVO MD, Ot Z79.4 NURSING HOME (CURRENT) USE OF INSULIN 02/05/2018 ISHA BRAVO MD, Ot Z79.82 [employer] (CURRENT) USE OF ASPIRIN 02/05/2018 ISHA BRAVO MD, Ot Z80.1 FAMILY HISTORY OF MALIG NEOPLASM OF [place] 02/05/2018 ISHA BRAVO MD, Ot Z80.41 FAMILY HISTORY OF MALIGNANT NEOPLASM OF 02/05/2018 ISHA BRAVO MD, Ot Z82.49 FAMILY HX OF ISCHEM HEART DIS AND OTH DI 02/05/2018 ISHA BRAVO MD, Ot Z87.19 PERSONAL HISTORY OF OTHER DISEASES OF TH 02/05/2018 ISHA BRAVO MD, Ot Z87.442 PERSONAL HISTORY OF URINARY CALCULI 02/05/2018 ISHA BRAVO MD, Ot Z88.8 ALLERGY STATUS TO OT DRUG/MEDS/BIOL SUB 02/05/2018 ISHA BRAVO MD, Ot Z90.710 ACQUIRED ABSENCE OF BOTH CERVIX AND UTER 02/05/2018 ISHA BRAVO MD, Ot Z90.89 ACQUIRED ABSENCE OF OTHER ORGANS Procedures Code Description Performed By Performed On 26.0 INCIS SALIVARY GLND/DUCT 01/17/2013 37.22 LEFT HEART CARDIAC CATH 12/21/2013 88.53 LT HEART ANGIOCARDIOGRAM 12/21/2013 88.56 CORONAR ARTERIOGR-2 CATH 12/21/2013 Results There is no data. Encounters ACCT No. Visit Date/Time Discharge Status Pt. Type Provider Facility Loc./Unit Complaint [id number] 01/18/2018 13:00:00 01/18/2018 23:59:59 CLS Preadmit FAUSTINO REAVES MD [facility] SDC LEFT DISTAL RADIUS FRACTURE [id number] 01/17/2018 05:36:00 01/17/2018 23:59:59 CLS Outpatient FAUSTINO REAVES MD [facility] PREOP LEFT DISTAL RADIUS FRACTURE [id number] 01/15/2018 23:28:00 01/16/2018 01:15:00 DIS Emergency ISHA BRAVO MD [facility] ER FALL [id number] 08/13/2017 15:54:00 08/13/2017 23:59:59 CLS Preadmit PATRICE RODNEY MD [facility] RAD SCREENING MAMMOGRAM [id number] 08/02/2016 14:26:00 08/02/2016 23:59:59 CLS Outpatient PATRICE RODNEY MD [facility] RAD SCREENING [id number] 05/17/2015 10:00:00 05/18/2015 08:04:00 DIS Outpatient MARIETTA ENAMORADO MD [facility] CR STABLE ANGINA [id number] 05/05/2015 10:00:00 05/05/2015 23:59:59 CLS Preadmit MARIETTA ENAMORADO MD [facility] CR STABLE ANGINA 04/19 [id number] 04/21/2015 12:10:00 05/04/2015 00:01:00 DIS Outpatient MARIETTA ENAMORADO MD [facility] CR STABLE ANGINA 04/19 [id number] 03/09/2015 10:24:00 03/09/2015 13:51:00 DIS Inpatient BRITTANY POOL MD [facility] CSD SVT, CHEST PAIN [id number] 03/08/2015 11:14:00 03/08/2015 23:59:59 CLS Outpatient BETHANIE HUITRON [facility] CARD IDDM,HTN [id number] 02/16/2015 19:45:00 02/17/2015 06:45:00 DIS Outpatient PATRICE RODNEY MD [facility] SLEEP ANNIE, SNORING, INSOMNIA , EDS [id number] 05/22/2014 20:10:00 05/23/2014 16:15:00 DIS Inpatient PATRICE RODNEY MD [facility] CSD CHEST PAIN [id number] 03/27/2014 11:45:00 03/27/2014 12:54:00 DIS Outpatient BRITTANY POOL MD [facility] CR AMI [id number] 01/27/2014 14:30:00 01/27/2014 23:59:59 CLS Outpatient BLADIMIR STEVENSON MD [facility] RAD STONES [id number] 01/26/2014 09:57:00 01/26/2014 23:59:59 CLS Outpatient PATRICE RODNEY MD [facility] RAD COUGH [id number] 12/21/2013 05:12:00 12/21/2013 13:00:00 DIS Inpatient BRITTANY POOL MD [facility] CSD CHEST PAIN AR [id number] 09/29/2013 13:45:00 10/02/2013 13:20:00 DIS Outpatient KAPIL NUNEZ MD [facility] REHAB DIZZINESS AND MUSCLE WEAKNESS BPPV [id number] 07/07/2013 08:03:00 07/07/2013 23:59:59 CLS Outpatient PATRICE RODNEY MD [facility] RAD CONFUSION,MEMORY LAPSES [id number] 07/04/2013 10:33:00 07/04/2013 23:59:59 CLS Outpatient PATRICE RODNEY MD [facility] LAB CONSUSION,MEMORY LAPSE [id number] 05/07/2013 11:03:00 05/07/2013 23:59:59 CLS Outpatient PATRICE RODNEY MD [facility] RAD FALL,LT KNEE, AND LT ANKLE [id number] 02/07/2013 13:24:00 02/07/2013 23:59:59 CLS Outpatient PHYLLIS ANDRE MD [facility] RAD SCREENING [id number] 02/07/2013 08:39:00 02/07/2013 23:59:59 CLS Outpatient RENE TELLEZ MD [facility] PREOP CYST ON BACK [id number] 01/15/2013 17:26:00 01/18/2013 14:30:00 DIS Inpatient CEDRIC LOPEZ, FAUSTINO Zamora [facility] SURGICAL ACUTE L SUBMANDIBULAR SIALADENITIS/SINUSITIS [id number] 01/14/2013 11:53:00 01/14/2013 23:59:59 CLS Outpatient PATRICE RODNEY MD [facility] RAD SWELLING SUBMANDIBULAR LFT SIDED FACIAL STRUCTURES [id number] 03/08/2015 17:40:00 Document Registration [id number] 04/28/2014 00:14:00 Document Registration [id number] 06/03/2012 08:38:00 Document Registration [id number] 03/29/2012 08:39:00 Document Registration [id number] 03/06/2012 10:50:00 Document Registration [id number] 03/06/2012 10:44:00 Document Registration [id number] 03/06/2012 10:39:00 Document Registration [id number] 12/12/2011 13:20:00 Document Registration [id number] 12/11/2011 08:26:00 Document Registration [id number] 11/28/2011 10:18:00 Document Registration [id number] 08/11/2011 10:37:00 Document Registration [id number] 06/01/2011 08:58:00 Document Registration [id number] 02/23/2011 10:36:00 Document Registration [id number] 02/13/2011 13:41:00 Document Registration [id number] 12/26/2010 16:18:00 Document Registration [id number] 10/13/2010 00:38:00 Document Registration [id number] 09/30/2010 10:34:00 Document Registration [id number] 04/11/2010 06:28:00 Document Registration [id number] 03/21/2010 11:34:00 Document Registration [id number] 03/15/2010 10:30:00 Document Registration [id number] 03/10/2010 00:00:00 Document Registration [id number] 03/07/2010 13:39:00 Document Registration [id number] 02/17/2010 15:16:00 Document Registration [id number] 02/03/2010 11:03:00 Document Registration [id number] 02/02/2010 12:57:00 Document Registration [id number] 01/06/2010 10:29:00 Document Registration [id number] 01/02/2010 01:11:00 Document Registration [id number] 12/09/2009 15:03:00 Document Registration [id number] 11/22/2009 14:09:00 Document Registration [id number] 11/11/2009 08:29:00 Document Registration [id number] 11/09/2009 14:06:00 Document Registration [id number] 05/25/2014 13:22:43 ACT Document Registration
[2018-06-05] MEDS ORDERED: inSUlin (REGULAR) HUMAN 1 UNIT/0.01 ML (CHARGE PER UNIT) IJ ONE (17:30)
[2018-06-05] MEDS ORDERED: NS IV 1000 ML 1,000 ML IV SCH (17:30)
[2018-06-05 17:41] LABS: BASOPHILS % (AUTO) 0 % (0-10); EOSINOPHILS # (AUTO) 0.1 10^3/uL (0.0-0.3); EOSINOPHILS % (AUTO) 1 % (0-10); HEMATOCRIT 38 % (35-52); HEMOGLOBIN 13.3 G/DL (11.5-16.0); LYMPHOCYTES # (AUTO) 1.6 X 10^3 (1.0-4.0); LYMPHOCYTES % (AUTO) 23 % (12-44); MEAN CORPUSCULAR HEMOGLOBIN 33 PG (25-34); MEAN CORPUSCULAR HGB CONC 35 G/DL (32-36); MEAN CORPUSCULAR VOLUME 95 FL (80-99); MEAN PLATELET VOLUME 11.7 FL (7.4-10.4); MONOCYTES # (AUTO) 0.5 X 10^3 (0.0-1.0); MONOCYTES % (AUTO) 7 % (0-12); NEUTROPHILS # (AUTO) 4.8 X 10^3 (1.8-7.8); NEUTROPHILS % (AUTO) 69 % (42-75); PLATELET COUNT 124 10^3/uL (130-400); RED CELL DISTRIBUTION WIDTH 13.2 % (10.0-14.5); WHITE BLOOD COUNT 7.1 10^3/uL (4.3-11.0)
--- NOTE | 2018-06-05 17:41 | ED General ---
General Stated Complaint: HIGH BS Source of Information: Patient Exam Limitations: No Limitations History of Present Illness Date Seen by Provider: Jun 05, 2018 Time Seen by Provider: 17:39 Initial Comments She presents to ER for high blood sugar. She is a known diabetic and takes Novolin-N twice a day and regular insulin 3 times a day with meals. She's been out of the insulin syringes for the past 3 days so has not taken her insulin. 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 She had outpatient routine labs drawn per her it architecture analyst in [place] who noted a high blood sugar in the 600 range and advised her to come to the emergency room. She states she was a little nauseous earlier today but feels basically normal at this time. Timing/Duration: 1-2 Days Severity: Moderate Associated Systoms: Nausea/Vomiting Allergies and Home Medications Allergies Coded Allergies: celecoxib (Unverified Allergy, Unknown, 03/08/15) levofloxacin (Verified Allergy, Unknown, 03/08/15) isosorbide (Verified Adverse Reaction, Unknown, severe hypotension, 03/08/15 ) Home Medications Aspirin 81 Mg Tablet.dr, 81 MG PO DAILY, (Reported) Atenolol 25 Mg Tablet, 25 MG PO BID, (Reported) Atorvastatin Calcium 80 Mg Tablet, 80 MG PO HS, (Reported) Bisacodyl 5 Mg Tablet.dr, 10-15 MG PO WEEKLY PRN for CONSTIPATION, (Reported) Cinacalcet HCl 60 Mg Tablet, 60 MG PO DAILY, (Reported) Docusate Sodium 100 Mg Capsule, 200 MG PO WEEKLY PRN for CONSTIPATION, (Reported ) Exenatide Microspheres 2 Mg/0.65 Ml Pen.injctr, 2 MG SQ EVERY SUNDAY, (Reported) Hydrocodone/Acetaminophen 1 Each Tablet, 1 EACH PO Q4-6HR PRN for PAIN-MODERATE Prescribed by: ISHA LUNDY on 01/16/18 0103 Insuln Asp Prt/Insulin Aspart 1 Unit/0.01 Ml Susp, 105 UNITS SQ DAILY, (Reported ) Insuln Asp Prt/Insulin Aspart 1 Unit/0.01 Ml Susp, 100 UNITS SC HS, (Reported) Losartan Potassium 25 Mg Tablet, 25 MG PO DAILY, (Reported) Meclizine Hcl 25 Mg Tablet, 25 MG PO DAILY PRN for DIZZINESS, (Reported) Metoclopramide HCl 10 Mg Tablet, 10 MG PO DAILY, (Reported) Nitroglycerin 0.4 Mg Tab.subl, 0.4 MG SL UD PRN for CHEST PAIN, (Reported) Promethazine HCl 12.5 Mg Tablet, 12.5 MG PO Q6H PRN for NAUSEA/VOMITING Prescribed by: ISHA LUNDY on 01/16/18 0103 Ranolazine 1,000 Mg Tab.sr.12h, 1,000 MG PO BID, (Reported) Ticagrelor 90 Mg Tablet, 90 MG PO BID, (Reported) Patient Home Medication List Home Medication List Reviewed: Yes Review of Systems Review of Systems Constitutional: see HPI EENTM: see HPI Respiratory: no symptoms reported Cardiovascular: no symptoms reported Genitourinary: no symptoms reported Musculoskeletal: no symptoms reported Skin: no symptoms reported Psychiatric/Neurological: No Symptoms Reported Hematologic/Lymphatic: No Symptoms Reported Past Ziydanh-Ucgiir-Nfiucl Hx Patient Social History 2nd Hand Smoke Exposure: No Recent Foreign Travel: No Contact w/Someone Who Travel: No Recent Hopitalizations: No Immunizations Up To Date Tetanus Booster (TDap): Less than 5yrs Date of Pneumonia Vaccine: Jan 17, 2013 Date of Influenza Vaccine: Dec 03, 2012 Seasonal Allergies Seasonal Allergies: No Past Medical History Surgeries: Yes (HYSTERECTOMY 1997, LAP. PRIETO 5-6 YRS. AGO, T&A-49 YRS. 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) Vertigo Reproductive Disorders: No Female Reproductive Disorders: Denies Sexually Transmitted Disease: No HIV/AIDS: No Genitourinary: Yes Kidney Stones Gastrointestinal: Yes (constipation) Gastroesophageal Reflux, Chronic Constipation Musculoskeletal: Yes (arthritis) Arthritis, Back Injury Endocrine: Yes Diabetes, Insulin dep Chronic Ear Infection Hearing Impairment: Hard of Hearing Cancer: No Psychosocial: No Integumentary: No (healing cyst removal) Blood Disorders: No Adverse Reaction/Blood Tranf: No Family Medical History Cancer (lung and ovarian) 09 BROTHER, Onset:30's - 40 09 SISTER, Onset:60 years & older Congenital heart disease (mitral valve prolapse) 09 SISTER 09 SISTER Congestive heart failure 03 FATHER, Onset:60 years & older 03 MOTHER, Onset:50's - 60 09 SISTER, Onset:60 years & older Family history: Arthritis 03 MOTHER, Onset:60 years & older Family history: Diabetes mellitus 03 FATHER, Onset:60 years & older 09 SISTER, Onset:50's - 60 Family history: Gastrointestinal disease 03 FATHER, Onset:50's - 60 Hereditary disease (HTN) 09 SISTER, Onset:40's - 50 History of - disorder (Urinary problems) 09 SISTER, Onset:60 years & older 09 SISTER, Onset:20's - 25 History of - respiratory disease (asthma) 09 SISTER Hypercholesterolemia 09 SISTER, Onset:50's - 60 Psychotic disorder (anxiety) 09 SISTER, Onset:30's - 40 Heart Disease Physical Exam Vital Signs Capillary Refill : Height, Weight, BMI Height: 5'7.00" Weight: 218lbs. 9.6oz. 99.481086kt; 34.45 BMI Method:Estimated General Appearance: No Apparent Distress, WD/WN Eyes: Bilateral Eye Normal Inspection, Bilateral Eye PERRL, Bilateral Eye EOMI HEENT: PERRL/EOMI, TMs Normal Neck: Full Range of Motion, Normal Inspection Respiratory: No Accessory Muscle Use, No Respiratory Distress Cardiovascular: Regular Rate, Rhythm, Normal Peripheral Pulses Gastrointestinal: Normal Bowel Sounds, Non Tender, Soft Extremity: Normal Capillary Refill, Normal Inspection Neurologic/Psychiatric: Alert, Oriented x3 Skin: Normal Color, Warm/Dry Progress/Results/Core Measures Suspected Sepsis SIRS Temperature: Pulse: Respiratory Rate: Laboratory Tests 06/05/18 17:30: Blood Pressure / Mean: Laboratory Tests 06/05/18 17:30: Results/Orders Lab Results Laboratory Tests Test 06/05/18 17:25 06/05/18 17:30 Range/Units Glucometer 565 *H 70-110 MG/DL My Orders Orders - KAYE SOLORIO APRN Cbc With Automated Diff (06/05/18 17:27) Basic Metabolic Panel (06/05/18 17:27) Ua Culture If Indicated (06/05/18 17:27) Iv Heplock-Insert (Order) (06/05/18 17:27) Ns Iv 1000 Ml (Sodium Chloride 0.9%) (06/05/18 17:30) Insulin (Regular) Human (Humulin R (Per (06/05/18 17:30) Vital Signs/I&O Capillary Refill : Departure Communication (Admissions) She states that she had a box of syringes delivered from [facility] this evening Impression Primary Impression: Hyperglycemia Disposition: 01 HOME, SELF-CARE Condition: Stable Departure-Patient Inst. Decision time for Depature: 17:40 Referrals: PATRICE RODNEY MD (PCP/Family) Primary Care Physician Patient Instructions: Hyperglycemia, Adult KAYE SOLORIO APRN Jun 05, 2018 17:41
[2018-06-05 17:48] LABS: BILIRUBIN,URINE NEGATIVE (NEGATIVE); CLARITY,URINE SLIGHTLY CLOUDY; COLOR,URINE YELLOW; GLUCOSE, URINE (UA) 4+ (NEGATIVE); KETONES,URINE NEGATIVE (NEGATIVE); LEUKOCYTE ESTERASE ,URINE 1+ (NEGATIVE); NITRITE,URINE NEGATIVE (NEGATIVE); PH,URINE 6.5 (5-9); PROTEIN,URINE 2+ (NEGATIVE); UROBILINOGEN,URINE NORMAL (NORMAL)
[2018-06-05 17:57] LABS: CALCIUM 10.1 MG/DL (8.5-10.1); CREATININE SERUM 1.9 MG/DL (0.60-1.30); POTASSIUM 5.1 MMOL/L (3.6-5.0)
[2018-06-05] MEDS ORDERED: inSUlin (REGULAR) HUMAN 1 UNIT/0.01 ML (CHARGE PER UNIT) IV ONE ×2 (18:00→19:15)
[2018-06-05 18:10] LABS: BACTERIA,URINE FEW /HPF; WBC,URINE 0-2 /HPF
[2018-06-05] MEDS ORDERED: NS IV 500 ML 500 ML IV SCH (18:30)
[2018-06-05 19:12] VITALS: BP 141/83
[2018-06-05 20:25] VITALS: BP 140/80
== END 2018-06-05 20:26 | disposition home or self-care (01) ==
LOC: EDUNIT# 17:13 → ER 17:15
DX: E11.65 Type 2 diabetes mellitus with hyperglycemia (principal); G47.30 Sleep apnea, unspecified; I25.2 Old myocardial infarction; I25.10 Atherosclerotic heart disease of native coronary artery without angina pectoris; E78.00 Pure hypercholesterolemia, unspecified; I10 Essential (primary) hypertension; K21.9 Gastro-esophageal reflux disease without esophagitis; Z80.1 Family history of malignant neoplasm of trachea, bronchus and lung; Z80.41 Family history of malignant neoplasm of ovary; Z82.49 Family history of ischemic heart disease and other diseases of the circulatory system; Z87.19 Personal history of other diseases of the digestive system; Z87.442 Personal history of urinary calculi; Z88.1 Allergy status to other antibiotic agents; Z88.8 Allergy status to other drugs, medicaments and biological substances; Z90.89 Acquired absence of other organs; Z79.82 Long term (current) use of aspirin; Z79.4 Long term (current) use of insulin; Z90.710 Acquired absence of both cervix and uterus; Z98.890 Other specified postprocedural states
CPT/HCPCS: 36415; 80048; 81000; 82962; 85025; 96361; 96374; 96376

== ENCOUNTER 2018-08-26 09:59 | Inpatient (IN) | payer MEDICARE, OTHER ==
[~2018-08-26] VITALS: Ht 167.6 cm; Wt 100.1 kg
[~2018-08-26 09:59] MED LIST changes: -ALLO300T2; +ALLO300T2 PO; -CLOP75TA28; +CLOP75TA28 PO; -FURO20TA4; +FURO20TA4 PO
[2018-08-26] MEDS ORDERED: [UNRECOGNIZED DRUG - OTHER] IV (12:12)
[2018-08-26] MEDS ORDERED: ASPI-983 PO (12:12)
[2018-08-26] MEDS ORDERED: HEPA500018 SC (12:12)
[2018-08-26] MEDS ORDERED: CHOL10007 PO (12:12)
[2018-08-26] MEDS ORDERED: MELA3TAB PO (12:12)
[2018-08-26] MEDS ORDERED: FENO54TA PO (12:12)
[2018-08-26] MEDS ORDERED: ACET-2650 PO (12:12)
[2018-08-26] MEDS ORDERED: BISA-65 PO (12:12)
[2018-08-26] MEDS ORDERED: INSU100V31 SC (12:12)
[2018-08-26] MEDS ORDERED: ATEN25TA PO (12:12)
[2018-08-26] MEDS ORDERED: INSN1U SC (12:18)
[2018-08-26] MEDS ORDERED: DOCU-143 PO (12:18)
[2018-08-26] MEDS ORDERED: ALEN10TA5 PO (12:18)
[2018-08-26] MEDS ORDERED: LOSA50TA63 PO (12:18)
[2018-08-26] MEDS ORDERED: INSN1U SQ (12:18)
[2018-08-26] MEDS ORDERED: RANO10003 PO (12:18)
--- NOTE | 2018-08-26 12:21 | NUR ---
UPDATED MED REC WITH DISCHARGE ORDERS FROM [facility]. NOTE THE FOLLOWING CHANGES WERE MADE WHEN THE PATIENT WAS DISCHARGED FROM [facility]: NEW: DEXTROSE 25G IV PRN BS <70 BISACODYL 10MG HS PRN FENOFIBRATE 54 HS HEPARIN 5,000UNITS/ML SQ Q12H MELATONIN 3MG HS PRN TYLENOL 650MG Q6H PRN VITAMIN D 1000 UNITS DAILY NOVOLIN R 20 UNITS SC TID DISCONTINUED: NOVOLIN R 20 UNITS TID I WILL UPDATE THE MED REC TO THE LIST OF MEDICATIONS THE PATIENT WAS TAKING PRIOR TO THIS DISCHARGE AT A LATER DATE FOR PROPER DISCHARGE TO HOME ORDERS. Addendum: 08/27/18 at 0818 by CARMELO PETERS [facility] UPDATED MED REC TO THE LIST OF MEDICATIONS THE PATIENT WAS TAKING AT HOME PRIOR TO DISCHARGE FROM [facility]. I REMOVED THE 7 NEW MEDICATIONS. NOVOLIN R WAS A NEW ORDER BUT WAS THE SAME THE DISCONTINUED ORDER SO I LEFT IT ON THE MED REC. I VERIFIED THE PRESCRIPTIONS WITH THE EXT MED OF WHAT HAS BEEN FILLED RECENTLY AT [facility]. ASPIRIN AND COLACE ARE OTC.
--- NOTE | 2018-08-26 16:45 | NUR ---
Admitted to room 224-1, with an admitting diagnosis of debility, on 08/26/18 from [facility] , accompanied by .CARMELA CARVALHO introduced to surroundings, call light, bed controls, phone, TV, temperature control, lights, meal times, smoking policy, visitor policy, side rail policy, bathrooms and showers. Patient Rights given to patient in the handbook.CARMELA CARVALHO verbalizes understanding that [facility] is not responsible for the loss or damage to any personal effects or valuables that are kept in the patients posession during their hospitalization. The following Patient Care Plans were discussed with the : Discharge Planning, ,, and . CARMELA CARVALHO verbalizes understanding of Interdisciplinary Patient Education. Patient and/or family were informed about the Rapid Response Team and its purpose. Patient received Patient Rights Booklet, which includes Privacy Act Statement and Data Collection Information Summary.
[2018-08-26 17:24] VITALS: BP 157/87
--- NOTE | 2018-08-26 18:21 | PM&R H&P / Post Admit Assess ---
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 She was assessed to have a stroke given the option of given TPA but she declined. She reports that she has been disabled for 5 years due to severe neuropathy upper and lower extremities due to diabetes mellitus of which she has not been the best in controlling on insulin. She also had a heart attack in 2015 and cardiology performed cardiac catheterization showing multivessel disease sent over to [facility] and from there they sent her to [facility] considering the very small coronary vessels that could not have any intervention in addition the lower part of her heart was unable to be managed with bypass surgery so she has inoperable CAD and was not interested in proceeding on with heart transplant as presented several years ago. Her hemoglo bin A1c is 10 and she overall has difficulty walking with a walker because her left hand keeps on slipping off the walker. She will need a platform on the left side. Overall she had no significant decompensation during the hospital course of [facility] and has arrived in inpatient rehab to recover prior to returning home to live alone. Her family is involved in her care. PLOF was independent with ambulation and ADL's. Source: patient, old records Exam Limitations: no limitations Date Seen 08/26/18 Time Seen by a Provider: 18:10 Attending Physician Teressa Goodrich Daniel J MD Referring Physician Date of Admission Aug 26, 2018 at 16:34 Home Medications & Allergies Home Medications Reviewed patient Home Medication Reconciliation performed by pharmacy medication reconciliations mold maintenance technician and/or nursing. Patients Allergies have been reviewed. 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) Alcohol Use: Denies Use Recreational Drug Use: No Smoking Status: Never a Smoker 2nd Hand Smoke Exposure: No Physical Abuse Screen: No Sexual Abuse: No Recent Foreign Travel: No Contact w/other who traveled: No Recent Hopitalizations: No Recent Infectious Disease Expo: No Immunizations Up To Date Tetanus Booster (TDap): Less than 5yrs Date of Pneumonia Vaccine: Jan 17, 2013 Date of Influenza Vaccine: Dec 03, 2012 Seasonal Allergies Seasonal Allergies: No Past Medical History Surgeries: Gallbladder, Hysterectomy, Orthopedic, Tonsillectomy Respiratory: Sleep Apnea Currently Using CPAP: Yes Cardiac: Cardiomyopathy, Coronary Artery Disease, Heart Attack, High Cholesterol, Hypertension Neurological: Neuropathy, Stroke (08/21), Vertigo Reproductive: No Sexually Transmitted Disease: No HIV/AIDS: No Female Reproductive Disorders: Denies Genitourinary: Kidney Stones, Renal Failure Gastrointestinal: Gastroesophageal Reflux, Chronic Constipation Gastroparesis Musculoskeletal: Arthritis, Back Injury Endocrine: Diabetes, Insulin dep Are Your Blood Sugars Over 250: Yes HEENT: Chronic Ear Infection Hearing Impairment: Hard of Hearing History of Blood Disorders: No Adverse Reaction to Blood [place]: No Family History Cancer (lung and ovarian) 09 BROTHER, Onset:30's - 40 09 SISTER, Onset:60 years & older Congenital heart disease (mitral valve prolapse) 09 SISTER 09 SISTER Congestive heart failure 03 FATHER, Onset:60 years & older 03 MOTHER, Onset:50's - 60 09 SISTER, Onset:60 years & older Family history: Arthritis 03 MOTHER, Onset:60 years & older Family history: Diabetes mellitus 03 FATHER, Onset:60 years & older 09 SISTER, Onset:50's - 60 Family history: Gastrointestinal disease 03 FATHER, Onset:50's - 60 Hereditary disease (HTN) 09 SISTER, Onset:40's - 50 History of - disorder (Urinary problems) 09 SISTER, Onset:60 years & older 09 SISTER, Onset:20's - 25 History of - respiratory disease (asthma) 09 SISTER Hypercholesterolemia 09 SISTER, Onset:50's - 60 Psychotic disorder (anxiety) 09 SISTER, Onset:30's - 40 Heart Disease Review of Systems Constitutional: see HPI, malaise, weakness EENTM: no symptoms reported Respiratory: no symptoms reported Cardiovascular: no symptoms reported Gastrointestinal: constipation, other Musculoskeletal: no symptoms reported Skin: no symptoms reported Psychiatric/Neurological: No Symptoms Reported All Other Systems Reviewed Negative Unless Noted: Yes Physical Exam Exam Vital Signs Vital Signs Date Time Temp Pulse Resp B/P (MAP) Pulse Ox O2 Delivery O2 Flow Rate FiO2 08/26/18 17:48 Room Air 08/26/18 17:24 98.8 64 16 157/87 (110) 99 Capillary Refill : Less Than 3 Seconds General Appearance: No Apparent Distress, WD/WN, Chronically ill HEENT: PERRL/EOMI, TMs Normal, Normal ENT Inspection, Pharynx Normal, Moist Mucous Membranes Neck: Full Range of Motion, Normal Inspection, Non Tender, Supple Respiratory: Chest Non Tender, Lungs Clear, Normal Breath Sounds, No Accessory Muscle Use, No Respiratory Distress Cardiovascular: Regular Rate, Rhythm, No Edema, No Gallop, No JVD, No Murmur Gastrointestinal: Normal Bowel Sounds, No Organomegaly, No Pulsatile Mass, Non Tender, Soft Back: Normal Inspection, No CVA Tenderness, No Vertebral Tenderness Extremity: Normal Capillary Refill, Normal Inspection, Normal Range of Motion, Non Tender, No Calf Tenderness, No Pedal Edema Neurologic/Psychiatric: Alert, Oriented x3, Normal Mood/Affect, Abnormal motion picture cameraman II-XII (left), Abnormal Gait, Facial Droop (left), Motor Weakness (left upper and lower extremity 4/5), Sensory Deficit (hands and feet) Skin: Normal Color, Warm/Dry Lymphatic: No Adenopathy Results Results/Procedures Labs Patient resulted labs reviewed. 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 The patient will have a comprehensive program of inpatient rehabilitation with a goal of maximizing level of functional independence prior to discharge home. The patient will have PT/OT ninety minutes per day, each discipline, five days a week for gait, strengthening, conditioning, balance, ADLs, any patient/family/caregiver training as necessary. Speech therapy to do cognitive assessment and treat as indicated. Rehabilitation nursing to assist with bowel, bladder, skin, wound care, medication administration, pain management. 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 SCD's for DVT pro phylaxis. She appears to be well motivated to participate in three hours of therapy a day. She should be able to tolerate three hours of therapy a day from a medical standpoint. She should benefit from the three hours of therapy a day. She has a reasonable discharge plan, reasonable discharge rehabilitation goals and a supportive family. She has various comorbidities that need to be closely monitored with medications and treatments adjusted on a daily basis as needed. These include: see list Barriers to discharge for this patient who had been independent prior to this are for her to be modified independent to supervision for ADLs and mobility skills prior to discharge home, so as to lessen the burden of the caregivers. Risks for this patient include: 1. Fall 2. Fracture 3. DVT 4. Pulmonary embolism 5. Wound infection 6. Skin breakdown 7. Contractures 8. Poorly controlled pain 9. Urinary retention 10. UTI 11. Respiratory infection 12. Aspiration Estimated Length of Stay: 7 days Prognosis: Rehab prognosis appears good for goal of discharge home modified independent to supervision for ADLs and mobility skills. TERESSA GOODRICH DO Aug 26, 2018 18:21
[2018-08-26] MEDS ORDERED: DEXTROSE IV PRN (18:30)
[2018-08-26] MEDS ORDERED: ALPRAZolam 0.25 MG (XANAX) TAB PO PRN (18:30)
[2018-08-26] MEDS ORDERED: CALCIUM CARBONATE 500 MG (TUMS) TAB.CHEW PO PRN (18:30)
[2018-08-26] MEDS ORDERED: diphenhydrAMINE 25 MG TAB (BENADRYL) PO PRN (18:30)
[2018-08-26] MEDS ORDERED: MELATONIN 3 MG TABLET PO PRN (18:30)
[2018-08-26] MEDS ORDERED: ONDANSETRON 4 MG/2 ML (SDV) Z0FRAN IVP PRN (18:30)
[2018-08-26] MEDS ORDERED: ONDANSETRON 4 MG (ZOFRAN) ORAL DISSOLVE TAB PO PRN (18:30)
[2018-08-26] MEDS ORDERED: [UNRECOGNIZED DRUG - OTHER] IV PRN (18:30)
[2018-08-26] MEDS ORDERED: BISACODYL 5 MG (DULCOLAX) TABLET PO PRN (18:30)
[2018-08-26] MEDS ORDERED: NON-FORMULARY MEDICATION 1 EA EA (Melatonin 3 MG) PO PRN (18:30)
[2018-08-26] MEDS ORDERED: DOCUSATE SODIUM 100 MG (COLACE) CAP PO PRN (18:30)
[2018-08-26] MEDS: FUROSEMIDE 20 MG (LASIX) TAB PO SCH (18:36)
[2018-08-26] MEDS: RANOLAZINE ER 500 MG TAB (RANEXA) PO SCH (21:36)
[2018-08-26] MEDS: ATENOLOL 25 MG (TENORMIN) TAB PO SCH (21:36)
[2018-08-26] MEDS: ATORVASTATIN 80 MG (LIPITOR) TABLET PO SCH (21:36)
[2018-08-26] MEDS: DOCUSATE SODIUM 100 MG (COLACE) CAP PO SCH (21:36)
[2018-08-26] MEDS: inSUlin (REGULAR) HUMAN 1 UNIT/0.01 ML (CHARGE PER UNIT) SC SCH (21:37)
[2018-08-26] MEDS: SENNA W/DOCUSATE (SENOKOT S) TABLET PO SCH (21:38)
[2018-08-26] MEDS: inSUlin NPH (NovoLIN N) 1 UNIT/0.01 ML (CHARGE PER UNIT) SQ SCH (21:38)
[2018-08-27 06:05] VITALS: BP 136/79
[2018-08-27 06:12] LABS: BASOPHILS % (AUTO) 0 % (0-10); EOSINOPHILS # (AUTO) 0.1 10^3/uL (0.0-0.3); EOSINOPHILS % (AUTO) 2 % (0-10); HEMATOCRIT 37 % (35-52); HEMOGLOBIN 12.5 G/DL (11.5-16.0); LYMPHOCYTES # (AUTO) 2.2 X 10^3 (1.0-4.0); LYMPHOCYTES % (AUTO) 34 % (12-44); MEAN CORPUSCULAR HEMOGLOBIN 33 PG (25-34); MEAN CORPUSCULAR HGB CONC 34 G/DL (32-36); MEAN CORPUSCULAR VOLUME 97 FL (80-99); MEAN PLATELET VOLUME 11.5 FL (7.4-10.4); MONOCYTES # (AUTO) 0.7 X 10^3 (0.0-1.0); MONOCYTES % (AUTO) 10 % (0-12); NEUTROPHILS # (AUTO) 3.5 X 10^3 (1.8-7.8); NEUTROPHILS % (AUTO) 54 % (42-75); PLATELET COUNT 108 10^3/uL (130-400); RED CELL DISTRIBUTION WIDTH 13.6 % (10.0-14.5); WHITE BLOOD COUNT 6.5 10^3/uL (4.3-11.0)
[2018-08-27 06:32] LABS: ALBUMIN 3.7 GM/DL (3.2-4.5); BILIRUBIN,TOTAL 0.5 MG/DL (0.1-1.0); CALCIUM 10.7 MG/DL (8.5-10.1); CREATININE SERUM 1.54 MG/DL (0.60-1.30); POTASSIUM 3.8 MMOL/L (3.6-5.0); TOTAL PROTEIN 6.1 GM/DL (6.4-8.2)
[2018-08-27] MEDS ORDERED: DEXTROSE 50% 50 ML (IMS) SYR IV PRN (07:15)
--- NOTE | 2018-08-27 08:18 | Physical Therapy Evaluation ---
PT Evaluation-General Medical Diagnosis Admission Date Aug 26, 2018 at 16:34 Medical Diagnosis: CVA Onset Date: Aug 21, 2018 Therapy Diagnosis Therapy Diagnosis: generalized weakness/debility Height/Weight Height (Feet): 5 Height (Inches): 6.00 Weight (Pounds): 216 Weight (Ounces): 8.0 Precautions Precautions/Isolations: Fall Prevention, Standard Precautions Weight Bear Status Right Lower Extremity: Right Full Weight Bearing Left Lower Extremity: Left Full Weight Bearing Referral Physician: Kp Reason for Referral: Evaluation/Treatment Medical History Pertinent Medical History: Arthritis, CAD, CVA, DM, HTN, MT, Neuropathy Current History Presented to [facility] with slurred speech, dizziness, nausea and left sided we akness/declined TPA Reviewed History: Yes Social History Home: Single Level Current Living Status: Alone Entry Into Home: Stairs Without Railing PT Steps Into Home: 4 Prior/Core FIM Prior Level of Function Therapy Code Descriptions/Definitions Functional [place] Measure: 0=Not Assessed/NA 4=Minimal Assistance 1=Total Assistance 5=Supervision or Setup 2=Maximal Assistance 6=Modified [place] 3=Moderate Assistance 7=Complete [place] Therapy Quality Codes: 6 Independent with activity with or without an assistive device 5 Patient requires set up or clean up by helper. Patient completes activity by themselves 4 Supervision or touching assist (CGA). [place] provide cues , steadying assist 3 The helper provides less than half the effort to complete the activity 2 The helper provides more than half the effort to complete the activity 1 Dependent. The helper does all the effort to complete an activity 7 Patient refused to complete or attempt activity 9 The patient did not perform the activity before the current illness or injury 88 Not attempted due to Medical conditions or safety concerns Functional Abilities and Goals: Independent: Patient completed the activities by him/herself, with or without an assistive device, with no assistance from a helper. Needed Some Help: Patient needed partial assistance from another person to complete activities. Dependent: A helper completed the activities for the patient. Unknown: Not Applicable: Bed Mobility: 6 Transfers (B,C,W/C) (FIM): 6 Gait: 6 Stairs: 2 Indoor Mobility (Ambulation): Independent Stairs: Independent Prior Devices Use: Manual wheelchair, Walker PT Evaluation-Current Subjective Patient is very alert and pleasant. Agrees to PT. Pain Numeric Pain Scale: 0-No Pain Location: No Pain Reported Objective Patient Orientation: Normal For Age Problem Solving: Good ROM/Strength ROM Lower Extremities bilateral LE WFL Strenght Lower Extremities left knee flexion/extension 3+/5; hip flexion 3+/5; DF/PF 3+/5 right knee flexion/extension 4/5; hip flexion 4/5; DF/PF 4/5 Integumentary/Posture Integumentary refer to nursing notes Bowel Incontinence: No Bladder Incontinence: No Posture WFL Neuromuscular (Tone, Coordination, Reflexes) grossly intact x 3 Sensory Vision: Functional Hearing: Functional Hand Dominance: Right Sensation Right Lower Extremit: Impaired Sensation Left Lower Extremity: Impaired Transfers Therapy Code Descriptions/Definitions Functional [place] Measure: 0=Not Assessed/NA 4=Minimal Assistance 1=Total Assistance 5=Supervision or Setup 2=Maximal Assistance 6=Modified [place] 3=Moderate Assistance 7=Complete [place] Therapy Quality Codes: 6 Independent with activity with or without an assistive device 5 Patient requires set up or clean up by helper. Patient completes activity by themselves 4 Supervision or touching assist (CGA). [place] provide cues , steadying assist 3 The helper provides less than half the effort to complete the activity 2 The helper provides more than half the effort to complete the activity 1 Dependent. The helper does all the effort to complete an activity 7 Patient refused to complete or attempt activity 9 The patient did not perform the activity before the current illness or injury 88 Not attempted due to Medical conditions or safety concerns Transfers (B, C, W/C) (FIM): 5 Scootin Rollin Roll Left to Right (QC): 6 Supine to/from Sit: 6 Sit to/from Stand: 5 Sit to Lying (QC): 6 Lying to Sitting/Side of Bed(Q: 6 Sit to Stand (QC): 5 Chair/Mcz-pc-Yudas Xfer(QC): 5 Car Transfer (QC): 6 Gait Does the Patient Walk?: Yes Mode of Locomotion: Walk Anticipated Mode of Locomotion: Walk Gait (FIM): 5 Distance (FIM): 3=150 ft Walk 10 feet (QC): 5 Walk 50 ft with 2 Turns(QC): 5 Walk 150 ft (QC): 5 Walking 10ft/uneven surface-QC: 5 Distance: 175' x 3 Gait Level of Assist: 5 Gait Assistive Device: FWW Comments/Gait Description slow, methodical, steady gait sequence Stairs Stairs (FIM): 1 #of Steps: 1 Level of Assist: 4 1 Step (curb) (QC): 4 4 Steps (QC): 88 Assistive Device: Walker 12 Steps (QC): 9 Balance Sitting Static: Normal Sitting Dynamic: Normal Standing Static: Good Standing Dynamic: Good Treatment bilateral LE exercises 20 reps each in supine and sit: AP, QS, HS, SLR, LAQ/NuStep WL 4 x 10 min Assessment/Needs 63 y.o. female, will benefit from skilled PT to address functional strength and mobility to improve current LOF to safely return to home with home health at maximum LOF. Rehab Potential: Fair PT Video Effects Editor Goals Retirement Goals PT Retirement Goals Time Frame: Sep 21, 2018 Transfers (B,C,W/C) (FIM): 6 Sit to Lying (QC): 6 Lying-Sitting on Side/Bed(QC): 6 Sit to Stand (QC): 6 Rollin Roll Left to Right (QC): 6 Chair/Qet-nq-Qgzjq Xfer(QC): 6 Car Transfer (QC): 6 Does the Patient Walk: Yes Gait (FIM): 6 Gait distance (FIM): 3=150 ft Distance: 200' Walk 10 feet (QC): 6 Walk 10ft-Uneven Surface(QC): 6 Walk 50ft with 2 Turns (QC): 6 Walk 150 ft (QC): 6 Gait Level of Assist: 6 Gait Assistive Device: FWW Stairs (FIM): 2 # of Steps: 4 1 Step (curb) (QC): 5 4 Steps (QC): 5 12 Steps (QC): 9 Stairs Level Of Assist: 5 Picking up an Object (QC): 5 PT Plan Problem List Problem List: Activity Tolerance, Functional Strength, Balance, Gait Treatment/Plan Treatment Plan: Continue Plan of Care Treatment Plan: Bed Mobility, Concurrent Therapy, Education, Functional Activity Ruthie, Functional Strength, Group Therapy, Gait, Safety, Therapeutic Exercise, Transfers Treatment Duration: Sep 21, 2018 Frequency: At least 5 of 7 days/Wk (IRF) Estimated Hrs Per Day: 1.5 hours per day Patient and/or Family Agrees t: Yes Safety Risks/Education Patient Education: Safety Issues Teaching Recipient: Patient Teaching Methods: Discussion Response to Teaching: Verbalize Understanding Discharge Recommendations Therapy D/C Recommendations: Home Independently, Physical Therapy Home Care Time/GCodes Time In: 710 Time Out: 815 Total Billed Treatment Time: 65 Total Billed Treatment 1 visit EVHighC 35 min EX x 2 30 min PANKAJ WELLER PT Aug 27, 2018 08:18
[2018-08-27] MEDS ORDERED: NON-FORMULARY MEDICATION 1 EA EA (Alendronate Sodium 10 MG) PO SCH (09:00)
--- NOTE | 2018-08-27 09:10 | PM&R Progress Note ---
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 She was assessed to have a stroke given the option of given TPA but she declined. She reports that she has been disabled for 5 years due to severe neuropathy upper and lower extremities due to diabetes mellitus of which she has not been the best in controlling on insulin. She also had a heart attack in 2015 and cardiology performed cardiac catheterization showing multivessel disease sent over to [facility] and from there they sent her to [facility] considering the very small coronary vessels that could not have any intervention in addition the lower part of her heart was unable to be managed with bypass surgery so she has inoperable CAD and was not interested in proceeding on with heart transplant as presented several years ago. Her hemoglobin A1c is 10 and she overall has difficulty walking with a walker because her left hand keeps on slipping off the walker. She will need a platform on the left side. Overall she had no significant decompensation during the hospital course of [facility] and has arrived in inpatient rehab to recover prior to returning home to live alone. Her family is involved in her care. PLOF was independent with ambulation and ADL's. Subjective/Events-last exam Patient had a good night but did not sleep and wants Ambien since she has had that in the past long ago and it helped a bit since Melatonin was not helpful at [place] Reviewed ECHO BM regimen per her own schedule since she usually evacuates every 3 days with laxatives. Changing diet to ADA and AHA and limiting carbs Sugars are poorly controlled and she sees Endo at [place] for that Patient overall has such poor compliance with all DM management and admits to that Creat 1.[address] and she does see Dr Gutierres Nephrology at [place] Checked meds and labs Conferred with RN Reviewed PT notes May need platform for left hand that falls off walker Review of Systems General: Fatigue, Other (insomnia) Neurological: Weakness, Numbness, Incoordination Objective Exam Vital Signs Vital Signs Date Time Temp Pulse Resp B/P (MAP) Pulse Ox O2 Delivery O2 Flow Rate FiO2 08/27/18 09:18 134/84 (101) 08/27/18 06:05 97.9 75 16 97 Room Air Capillary Refill : Less Than 3 Seconds General Appearance: No Apparent Distress, WD/WN, Chronically ill HEENT: PERRL/EOMI, TMs Normal, Normal ENT Inspection, Pharynx Normal, Moist Mucous Membranes Neck: Full Range of Motion, Normal Inspection, Non Tender, Supple Respiratory: Chest Non Tender, Lungs Clear, Normal Breath Sounds, No Accessory Muscle Use, No Respiratory Distress Cardiovascular: Regular Rate, Rhythm, No Edema, No Gallop, No JVD, No Murmur Gastrointestinal: Normal Bowel Sounds, No Organomegaly, No Pulsatile Mass, Non Tender, Soft Back: Normal Inspection, No CVA Tenderness, No Vertebral Tenderness Extremity: Normal Capillary Refill, Normal Inspection, Normal Range of Motion, Non Tender, No Calf Tenderness, No Pedal Edema Neurologic/Psychiatric: Alert, Oriented x3, Normal Mood/Affect, Abnormal distribution accounting clerk II-XII (left), Abnormal Gait, Facial Droop (left), Motor Weakness (left upper and lower extremity 4/5), Sensory Deficit (hands and feet) Skin: Normal Color, Warm/Dry Lymphatic: No Adenopathy Results/Procedures Lab Laboratory Tests 08/27/18 05:53 08/27/18 05:55 Patient resulted labs reviewed. FIM Transfers Therapy Code Descriptions/Definitions Functional [place] Measure: 0=Not Assessed/NA 4=Minimal Assistance 1=Total Assistance 5=Supervision or Setup 2=Maximal Assistance 6=Modified [place] 3=Moderate Assistance 7=Complete [place] Therapy Quality Codes: 6 Independent with activity with or without an assistive device 5 Patient requires set up or clean up by helper. Patient completes activity by themselves 4 Supervision or touching assist (CGA). [place] provide cues , steadying assist 3 The helper provides less than half the effort to complete the activity 2 The helper provides more than half the effort to complete the activity 1 Dependent. The helper does all the effort to complete an activity 7 Patient refused to complete or attempt activity 9 The patient did not perform the activity before the current illness or injury 88 Not attempted due to Medical conditions or safety concerns Transfers (B, C, W/C) (FIM): 5 Scootin Rollin Roll Left to Right (QC): 6 Supine to/from Sit: 6 Sit to/from Stand: 5 Sit to Lying (QC): 6 Sit to Stand (QC): 5 Chair/Ebg-bm-Frupr Xfer(QC): 5 Car Transfer (QC): 6 Gait Training Does the Patient Walk?: Yes Gait (FIM): 5 Distance (FIM): 3=150 ft Walk 10 feet (QC): 5 Walk 50 ft with 2 Turns(QC): 5 Walk 150 ft (QC): 5 Walking 10ft/uneven surface-QC: 5 Gait Level of Assist: 5 Gait Assistive Device: FWW Stair Training Stairs (FIM): 1 #of Steps: 1 1 Step (curb) (QC): 4 4 Steps (QC): 88 12 Steps (QC): 9 Level of Assist: 4 Assessment/Plan Assessment and Plan Assess & Plan/Chief Complaint Assessment: CVA w/residual left facial droop and left upper and lower extremity weakness declined tPA DM poorly controlled 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 at [facility] 2015 HTN HLP CRI Insomnia GERD Gastroparesis OP Neuropathy Plan: IRF protocol Accuchecks SSI Monitor closely (1) CVA (cerebral vascular accident) (2) Insomnia (3) Intravenous tissue plasminogen activator (tPA) declined by parent (4) Facial droop as late effect of cerebrovascular accident (CVA) (5) Left hemiparesis (6) Gastroparesis (7) Hypertension (8) GERD (gastroesophageal reflux disease) (9) Renal insufficiency (10) Neuropathy (11) Hyperlipemia (12) CAD (coronary artery disease) (13) Osteoporosis (14) Diabetes mellitus (15) Slurred speech (16) Constipation JAG KIRKLAND DO Aug 27, 2018 09:10
[2018-08-27 09:18] VITALS: BP 134/84
[2018-08-27] MEDS: ATENOLOL 25 MG (TENORMIN) TAB PO SCH ×2 (09:19→20:40)
[2018-08-27] MEDS: ASPIRIN E.C. 81 MG (ECOTRIN) TAB PO SCH (09:19)
[2018-08-27] MEDS: SENNA W/DOCUSATE (SENOKOT S) TABLET PO SCH ×2 (09:19→20:46)
[2018-08-27] MEDS: CLOPIDOGREL 75 MG (PLAVIX) TABLET PO SCH (09:19)
[2018-08-27] MEDS: LOSARTAN 50 MG (COZAAR) TAB PO SCH (09:19)
[2018-08-27] MEDS: VITAMIN D3 1,000 UNITS (CHOLECALCIFEROL) TABLET PO SCH (09:20)
[2018-08-27] MEDS: RANOLAZINE ER 500 MG TAB (RANEXA) PO SCH ×2 (09:20→20:39)
[2018-08-27] MEDS: DOCUSATE SODIUM 100 MG (COLACE) CAP PO SCH ×2 (09:20→20:40)
[2018-08-27] MEDS: inSUlin NPH (NovoLIN N) 1 UNIT/0.01 ML (CHARGE PER UNIT) SQ SCH ×2 (09:20→20:41)
[2018-08-27] MEDS: ALLOPURINOL 300 MG (ZYLOPRIM) TAB PO SCH (09:20)
[2018-08-27] MEDS: inSUlin (REGULAR) HUMAN 1 UNIT/0.01 ML (CHARGE PER UNIT) SC SCH ×3 (09:21→20:45)
--- NOTE | 2018-08-27 12:52 | Occupational Therapy Eval ---
OT Evaluation-General/PLF Medical Diagnosis Admission Date Aug 26, 2018 at 16:34 Medical Diagnosis: CVA Onset Date: Aug 21, 2018 Therapy Diagnosis Therapy Diagnosis: Decreased self care skills Height/Weight Height (Feet): 5 Height (Inches): 6.00 Weight (Pounds): 216 Weight (Ounces): 8.0 Precautions Precautions/Isolations: Fall Prevention, Standard Precautions Safety Interventions: None Referral Physician: Kp Medical History Pertinent Medical History: Arthritis, CAD, CVA, DM, HTN, [place], Neuropathy Reviewed History: Yes Social History Home: Single Level Current Living Status: Alone Entry Into Home: Stairs Without Railing Steps Into Home: 4 ADL-Prior Level of Function Therapy Code Descriptions/Definitions Functional [place] Measure: 0=Not Assessed/NA 4=Minimal Assistance 1=Total Assistance 5=Supervision or Setup 2=Maximal Assistance 6=Modified [place] 3=Moderate Assistance 7=Complete [place] Therapy Quality Codes: 6 Independent with activity with or without an assistive device 5 Patient requires set up or clean up by helper. Patient completes activity by themselves 4 Supervision or touching assist (CGA). [place] provide cues , steadying assist 3 The helper provides less than half the effort to complete the activity 2 The helper provides more than half the effort to complete the activity 1 Dependent. The helper does all the effort to complete an activity 7 Patient refused to complete or attempt activity 9 The patient did not perform the activity before the current illness or injury 88 Not attempted due to Medical conditions or safety concerns Functional Abilities and Goals: Independent: Patient completed the activities by him/herself, with or without an assistive device, with no assistance from a helper. Needed Some Help: Patient needed partial assistance from another person to complete activities. Dependent: A helper completed the activities for the patient. Unknown: Not Applicable: ADL PLOF Comments Pt reports being independent with basic self care prior to admission. Did not cook, states she either eats out or her daughter cooks for her. Has retail pos specialist for heavy cleaning once a month. Pt states she fatigues quickly and can only stand for short intervals. Can only walk short distances. Family does shopping for her. Daughter bought her a transport chair for outings. Pt states she can stay with daughter for awhile at d/c if needed. 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 Pt has no reports of pain at this time, but states she has chronic back pain. Mental Status/Objective Patient Orientation: Person, Place, Time, Situation Current Hearing Aids: No Dentures/Partials: Yes (upper partial) Hand Dominance: Right Upper Extremity ROM Grossly WFL Upper Extremity Coordination Mildly decreased left UE Right UE WFL Upper Extremity Sensation Pt reports "tingling" in left hand Upper Extremity Strength Right UE WFL Left UE grossly 4-/5 ADL-Treatment ADL-Current Pt sit to stand with supervision. Gait to restroom with FWW. Transfer to walk in shower with close supervision for safety using grab bar for balance. Pt able to wash/dry all areas. CGA for balance during standing to wash buttocks. Pt donned pullover shirt with set up. Donned Depends and pants with supervision for balance. Don bilateral socks with SBA. Toilet transfer completed with supervision using grab bar for safety. Pt able to complete toileting hygiene and clothing management with supervision. Grooming tasks completed standing at sink. Pt able to completed with SBA for balance. Transfer to chair with SBA. Eating (FIM): 6 (Pt reports feeding self, managing containers, and cutting food without assist.) Eating (QC): 6 Grooming (FIM): 5 Oral Hygiene (QC): 4 Bathing (FIM): 4 (CGA) Shower/Bathe Self (QC): 4 Upper Body Dressing (FIM): 5 Upper Body Dressing (QC): 5 Lower Body Dressing (FIM): 5 Lower Body Dressing (QC): 4 On/Off Footwear (QC): 4 Toileting (FIM): 5 Toileting Hygiene (QC): 4 Toilet/Commode Transfer (FIM): 5 Toilet Transfer (QC): 4 Shower Transfer (FIM): 5 Other Treatments Pt completed 9-hole peg test to assess coordination skills. Pt completed right hand in 25 seconds and left in 33 seconds. Pt completed coordination task with left hand to increase fine motor coordination and manipulation. Pt able to complete task with increased time and effort. Tableau Analyst strength exercises x20 reps with blue therapy foam to increase hand strength. Pt sitting in chair with needs met after session. Education OT Patient Education: Rehab process Teaching Recipient: Patient Teaching Methods: Discussion Response to Teaching: Verbalize Understanding OT Short Term Goals Short Term Goals 1=Demonstrate adherence to instructed precautions during ADL tasks. 2=Patient will verbalize/demonstrate understanding of assistive devices/modifications for ADL. 3=Patient will improve strength/tolerance for activity to enable patient to perform ADL's. OT Longterm Goals Longterm Goals Time Frame: Sep 17, 2018 Eating (FIM): 6 Eating (QC): 6 Groomin Oral Hygiene (QC): 6 Bathing(FIM): 6 Shower/Bathe Self (QC): 6 Upper Body Dressing(FIM): 6 Upper Body Dressing (QC): 6 Lower Body Dressing(FIM): 6 Lower Body Dressing (QC): 6 On/Off Footwear (QC): 6 Toileting(FIM): 6 Toileting Hygiene (QC): 6 Toilet/Commode Transfer(FIM): 6 Toilet/Commode Transfer (QC): 6 Shower Transfer(FIM): 6 Additional Goals: 1-Demonstrate ADL Tasks, 2-Verbalize Understanding, 3- ImproveStrength/Ruthie 1=Demonstrate adherence to instructed precautions during ADL tasks. 2=Patient will verbalize/demonstrate understanding of assistive devices/modific ations for ADL. 3=Patient will improve strength/tolerance for activity to enable patient to perform ADL's. Goals established to promote increased functional independence and allow safe discharge. OT Education/Plan Problem List/Assessment Assessment: Decreased Activ Tolerance, Decreased UE Strength, Dependent Transfers, Impaired Coordination, Impaired I ADL's, Impaired Self-Care Skills Pt to benefit from skilled OT intervention for ADL training, transfers, streng thening, coordination, and safety education to increase level of independence and allow safe discharge home. Discharge Recommendations Plan/Recommendations: Continue POC Treatment Plan/Plan of Care Treatment,Training & Education: Yes Patient would benefit from OT for education, treatment and training to promote independence in ADL's, mobility, safety and/or upper extremity function for ADL's. Plan of Care: ADL Retraining, Functional Mobility, Group Exercise/Act as Ind, UE Funct Exercise/Act, UE Neuromus Re-Ed/Coord Treatment Duration: Sep 17, 2018 Frequency: At least 5 of 7 days/Wk (IRF) Estimated Hrs Per Day: 1.5 hours per day Rehab Potential: Good Time/GCodes Start Time: 10:15 Stop Time: 11:45 Total Time Billed (hr/min): 90 Billed Treatment Time 1 visit, EVM(15minutes), ADLx4(60minutes), EX(15minutes) ADAMARIS DE LEÓN OT Aug 27, 2018 12:52
--- NOTE | 2018-08-27 13:43 | Physical Therapy Daily Note ---
PT Daily Note-Current Subjective Patient just complete with lunch and agrees to PT. No c/o. Mental Status Patient Orientation: Normal For Age Transfers Therapy Code Descriptions/Definitions Functional [place] Measure: 0=Not Assessed/NA 4=Minimal Assistance 1=Total Assistance 5=Supervision or Setup 2=Maximal Assistance 6=Modified [place] 3=Moderate Assistance 7=Complete [place] Therapy Quality Codes: 6 Independent with activity with or without an assistive device 5 Patient requires set up or clean up by helper. Patient completes activity by themselves 4 Supervision or touching assist (CGA). [place] provide cues , steadying assist 3 The helper provides less than half the effort to complete the activity 2 The helper provides more than half the effort to complete the activity 1 Dependent. The helper does all the effort to complete an activity 7 Patient refused to complete or attempt activity 9 The patient did not perform the activity before the current illness or injury 88 Not attempted due to Medical conditions or safety concerns Transfers (B, C, W/C) (FIM): 5 Scootin Sit to/from Stand: 5 Sit to Stand (QC): 5 Weight Bearing Right Lower Extremity: Right Full Weight Bearing Left Lower Extremity: Left Full Weight Bearing Gait Training Does the Patient Walk?: Yes Gait (FIM): 5 Distance (FIM): 3=150 ft Distance: 250' x 3 Walk 10 feet (QC): 5 Walk 50 ft with 2 Turns(QC): 5 Walk 150 ft (QC): 5 Gait Level of Assist: 5 Gait Assistive Device: FWW patient dons socks and shoes and is SBA with all mobility this p.m. Exercises NuStep Minutes: 12 NuStep Workload: 4 Assessment Patient is fatigued this p.m. from increase in activity. PT to continue to increase activity as tolerated by patient. PT Usp Goals Oil And Gas Exploration Technician Goals PT Usp Goals Time Frame: Sep 21, 2018 Transfers (B,C,W/C) (FIM): 6 Sit to Lying (QC): 6 Lying-Sitting on Side/Bed(QC): 6 Sit to Stand (QC): 6 Rollin Roll Left to Right (QC): 6 Chair/Ruv-rk-Glrbu Xfer(QC): 6 Car Transfer (QC): 6 Does the Patient Walk: Yes Gait (FIM): 6 Gait distance (FIM): 3=150 ft Distance: 200' Walk 10 feet (QC): 6 Walk 10ft-Uneven Surface(QC): 6 Walk 50ft with 2 Turns (QC): 6 Walk 150 ft (QC): 6 Gait Level of Assist: 6 Gait Assistive Device: FWW Stairs (FIM): 2 # of Steps: 4 1 Step (curb) (QC): 5 4 Steps (QC): 5 12 Steps (QC): 9 Stairs Level Of Assist: 5 Picking up an Object (QC): 5 PT Plan Treatment/Plan Treatment Plan: Continue Plan of Care Treatment Plan: Bed Mobility, Concurrent Therapy, Education, Functional Ac tivity Ruthie, Functional Strength, Group Therapy, Gait, Safety, Therapeutic Exercise, Transfers Treatment Duration: Sep 21, 2018 Frequency: At least 5 of 7 days/Wk (IRF) Estimated Hrs Per Day: 1.5 hours per day Patient and/or Family Agrees t: Yes Time/GCodes Time In: 1306 Time Out: 1336 Total Billed Treatment Time: 30 Total Billed Treatment 1 visit EX 12 min GT 18 min PANKAJ WELLER PT Aug 27, 2018 13:43
--- NOTE | 2018-08-27 15:46 | ST Cognitive Linguistic Eval ---
Speech Evaluation-General Medical Diagnosis CVA Onset Date: Aug 21, 2018 Therapy Diagnosis Therapy Diagnosis: Cognitive-communication Precautions Precautions/Isolations: Fall Prevention, Standard Precautions Referral Referring Physician: Dr. Goodrich Medical History Pertinent Medical History: Arthritis, CAD, CVA, DM, HTN, ND, Neuropathy Reviewed History: Yes Social History Current Living Status: Alone Speech PLF-Current Status Prior Level of Function The patient lives at home although she states she goes to stay with each of her 3 children frequently. She was independent with her daily needs. Subjective The patient was pleasant and cooperative with the cognitive evaluation. Language Eval: Auditory Comprehends Simple Yes/No Ques: Functional Indent/Objects Multiple Paredes: Functional Ident/Pics in Multiple Paredes: Functional Follows 1-Step Commands: Functional Follows Complex Directions: Mild Follows General Conversations: Functional Language Eval: Verbal Language Completes Spontaneous Greeting: Functional Produces Auto, Serial Info: Functional Imitates Simple Words/Phrases: Functional Word Finding: Functional Requests Basic Needs: Functional States Basic Personal Info: Functional Expresses Complex Ideas: Mild Objective Cognitive Domain Attention: WNL Memory: Mild Problem Solving: Mild Executive Functions: Mild Visuospatial Skills: WNL Composite Severity Rating: Mild Clock Drawing Severity Rating: WNL Objective Formal/Standardized Tests [facility] Mental Status ([facility]) Results The patient scored a 26/30 placing her in the Mild Neurocognitive Disorder range. Deficits noted with memory and recall of information. Oral Motor/Speech Production Within Functional Limits Impression The patient is a pleasant 63 year old female who was admitted to the ARU s/p CVA. The patient was referred for a cognitive evaluation to assess the deficits that could still be present. The SLUMS was given with the patient's range in the MNCD primarily related to memory and recall of information. The patient will receive skilled ST services for these deficits with focus on safety and independence. Communication/Social Cognition Comprehension: 6 Expression: 6 Social Interaction: 7 Problem Solvin Memory: 5 Speech Patient Assess Expression of Ideas/Wants: Expression (4) Understanding Verbal Content: Understands (4) Brief Interview-Mental Status: Yes Repetition of Three Words: Three (3) Temporal Orientation: Year: Correct (3) Temporal Orientation: Month: Accurate within 5 days(2) Temporal Orientation: Day: Correct (1) Recall : Wear to say "Sock": Yes,after cueing (1) Recall : Color: Yes, after cueing (1) Recall : Bed: No, could not recall (0) Memory/Recall Ability: Current season, Staff names and faces, That he or she is in a hsp/hsp unit Speech Short Term Goals Short Term Goals Short Term Goals 1) The patient will complete memory tasks related to her daily needs at 90% or greater independently. 2) The patient will complete problem solving tasks related to her daily needs at 90% or greater independently. 3) The patient will complete recall of new information related to her daily needs at 90% or greater independently. Speech Chcf Goals Tree Driller Goals The patient will increase cognitive skills for safety and independence. Speech-Plan Patient/Family Goals Patient/Family Goals: The patient plans to return home alone with strong family support post rehab. Treatment Plan Speech Therapy Treatment Plan: Continue Plan of Care The patient will receive cognitive therapy. Treatment Duration: Sep 06, 2018 Frequency: 5 times per week Estimated Hrs Per Day: .5 hour per day Rehab Potential: Good Barriers to Learning: New onset CVA Pt/Family Agrees to Plan: Yes Safety Risks/Education Teaching Recipient: Patient Teaching Methods: Discussion Response to Teaching: Verbalize Understanding Education Topics Provided: Safety within her room Time Speech Therapy Time In: 09:00 Speech Therapy Time Out: 09:30 Total Billed Time: 30 Billed Treatment Time 1, NESS Harp Aug 27, 2018 15:46
[2018-08-27 16:18] VITALS: BP 114/74
[2018-08-27] MEDS: ATORVASTATIN 80 MG (LIPITOR) TABLET PO SCH (20:39)
[2018-08-27] MEDS: FENOFIBRATE, MICRO 67 MG (LOFIBRA) CAPSULE PO SCH (20:41)
[2018-08-27] MEDS: ZOLPIDEM 5 MG (AMBIEN) TAB PO PRN (22:04)
[2018-08-27] MEDS: ACETAMINOPHEN 500 MG TAB (TYLENOL) PO PRN (22:04)
[2018-08-28 05:50] VITALS: BP 108/72
--- NOTE | 2018-08-28 08:58 | NUR ---
SECURITY CHECKER met with patient to complete initial assessment. Patient was alert and oriented and agreeable to assessment. Patient admitted to ARU from [place], [place] with debility following CVA. Prior to hospitalization patient resided alone in a one level home in [place], [place]; however, patient intends to temporarily reside with her daughter, Mary Ann at discharge. Mary Ann resides in [place], has a multilevel home with 3 steps at the entrance. Patient will stay on the main level. Prior to CVA patient was independent with ADLs could ambulate only short distances and utilized a wheelchair for most mobility. Patient also possesses a Rollator walker. Primary contact identified as daughter Mary Ann at [phone], son Javier at [place] at [phone] and daughter Musa of [place] at [phone]. PCP identified as Dr. Amauri Peralta. Insurance verified as Medicare and [employer], Medicare supplement with prescription coverage and preferred pharmacy as [facility]. SECURITY CHECKER reviewed typical ARU length of stay and weekly team conferences with patient. Patient admitted at a relatively high functional level and will likely complete a shortened length of stay. Patient expresses no concerns or questions at this time. SECURITY CHECKER will continue to follow.
--- NOTE | 2018-08-28 09:06 | PM&R Progress Note ---
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 She was assessed to have a stroke given the option of given TPA but she declined. She reports that she has been disabled for 5 years due to severe neuropathy upper and lower extremities due to diabetes mellitus of which she has not been the best in controlling on insulin. She also had a heart attack in 2014 and cardiology performed cardiac catheterization showing multivessel disease sent over to [facility] and from there they sent her to [facility] considering the very small coronary vessels that could not have any intervention in addition the lower part of her heart was unable to be managed with bypass surgery so she has inoperable CAD and was not interested in proceeding on with heart transplant as presented several years ago. Her hemoglobin A1c is 10 and she overall has difficulty walking with a walker because her left hand keeps on slipping off the walker. She will need a platform on the left side. Overall she had no significant decompensation during the hospital course of [facility] and has arrived in inpatient rehab to recover prior to returning home to live alone. Her family is involved in her care. PLOF was independent with ambulation and ADL's. Subjective/Events-last exam Ambien really helped her insomnia last night, she feels really good. She did have a BM yesterday and a complete evacuation at that. Blood sugars reviewed they are usually very high. Has an endocrinology appointment on Sunday and likely will be able to be discharged to her home or daughters home at that time in order to get to that appointment. Reviewed therapy notes. Conferred with RN. Checked meds and labs Conferred with RN Reviewed PT notes May need platform for left hand that falls off walker Review of Systems Neurological: Weakness, Numbness, Incoordination, Change in speech Objective Exam Vital Signs Vital Signs Date Time Temp Pulse Resp B/P (MAP) Pulse Ox O2 Delivery O2 Flow Rate FiO2 08/28/18 17:21 97.2 59 16 138/90 (106) 100 Room Air Capillary Refill : Less Than 3 Seconds General Appearance: No Apparent Distress, WD/WN, Chronically ill HEENT: PERRL/EOMI, TMs Normal, Normal ENT Inspection, Pharynx Normal, Moist Muc ous Membranes Neck: Full Range of Motion, Normal Inspection, Non Tender, Supple Respiratory: Chest Non Tender, Lungs Clear, Normal Breath Sounds, No Accessory Muscle Use, No Respiratory Distress Cardiovascular: Regular Rate, Rhythm, No Edema, No Gallop, No JVD, No Murmur Gastrointestinal: Normal Bowel Sounds, No Organomegaly, No Pulsatile Mass, Non Tender, Soft Back: Normal Inspection, No CVA Tenderness, No Vertebral Tenderness Extremity: Normal Capillary Refill, Normal Inspection, Normal Range of Motion, Non Tender, No Calf Tenderness, No Pedal Edema Neurologic/Psychiatric: Alert, Oriented x3, Normal Mood/Affect, Abnormal audiovisual librarian II-XII (left), Abnormal Gait, Facial Droop (left), Motor Weakness (left upper and lower extremity 4/5), Sensory Deficit (hands and feet) Skin: Normal Color, Warm/Dry Lymphatic: No Adenopathy Results/Procedures Lab Patient resulted labs reviewed. FIM Transfers Therapy Code Descriptions/Definitions Functional [place] Measure: 0=Not Assessed/NA 4=Minimal Assistance 1=Total Assistance 5=Supervision or Setup 2=Maximal Assistance 6=Modified [place] 3=Moderate Assistance 7=Complete [place] Therapy Quality Codes: 6 Independent with activity with or without an assistive device 5 Patient requires set up or clean up by helper. Patient completes activity by themselves 4 Supervision or touching assist (CGA). [place] provide cues , steadying assist 3 The helper provides less than half the effort to complete the activity 2 The helper provides more than half the effort to complete the activity 1 Dependent. The helper does all the effort to complete an activity 7 Patient refused to complete or attempt activity 9 The patient did not perform the activity before the current illness or injury 88 Not attempted due to Medical conditions or safety concerns Transfers (B, C, W/C) (FIM): 5 Scootin Rollin Roll Left to Right (QC): 6 Supine to/from Sit: 6 Sit to/from Stand: 5 Sit to Lying (QC): 6 Sit to Stand (QC): 5 Chair/Hpg-et-Ryqjh Xfer(QC): 5 Car Transfer (QC): 6 Gait Training Does the Patient Walk?: Yes Gait (FIM): 5 Distance (FIM): 3=150 ft Distance: 250' x 3 Walk 10 feet (QC): 5 Walk 50 ft with 2 Turns(QC): 5 Walk 150 ft (QC): 5 Walking 10ft/uneven surface-QC: 5 Gait Level of Assist: 5 Gait Assistive Device: FWW Wheelchair Training Does the Pt Use a Wheelchair?: No Stair Training Stairs (FIM): 1 #of Steps: 1 1 Step (curb) (QC): 4 4 Steps (QC): 88 12 Steps (QC): 9 Level of Assist: 4 Mental Status/Objective Comprehension: 6 Expression: 6 Social Interaction: 7 Problem Solvin Memory: 5 ADL-Treatment Feedin (Pt reports feeding self, managing containers, and cutting food wi thout assist.) Eating (QC): 6 Groomin Oral Hygiene (QC): 4 Bathin (CGA) Shower/Bathe Self (QC): 4 Upper Extremity Dressin Upper Body Dressing (QC): 5 Lower Extremity Dressin Lower Body Dressing (QC): 4 On/Off Footwear (QC): 4 Toiletin Toileting Hygiene (QC): 4 Toilet/Commode Transfer: 5 Toilet Transfer (QC): 4 Shower: 5 Assessment/Plan Assessment and Plan Assess & Plan/Chief Complaint Assessment: CVA w/residual left facial droop and left upper and lower extremity weakness declined tPA DM poorly controlled 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 at [place] [id number] HTN HLP CRI Insomnia GERD Gastroparesis OP Neuropathy Plan: IRF protocol Accuchecks SSI Monitor closely DC Sunday in time to go to Endo appt Sunday (1) CVA (cerebral vascular accident) (2) Insomnia (3) Intravenous tissue plasminogen activator (tPA) declined by parent (4) Facial droop as late effect of cerebrovascular accident (CVA) (5) Left hemiparesis (6) Gastroparesis (7) Hypertension (8) GERD (gastroesophageal reflux disease) (9) Renal insufficiency (10) Neuropathy (11) Hyperlipemia (12) CAD (coronary artery disease) (13) Osteoporosis (14) Diabetes mellitus (15) Slurred speech (16) Constipation JAG KIRKLAND DO Aug 28, 2018 09:06
[2018-08-28] MEDS: CLOPIDOGREL 75 MG (PLAVIX) TABLET PO SCH (09:29)
[2018-08-28] MEDS: ALLOPURINOL 300 MG (ZYLOPRIM) TAB PO SCH (09:29)
[2018-08-28] MEDS: ATENOLOL 25 MG (TENORMIN) TAB PO SCH ×2 (09:29→21:18)
[2018-08-28] MEDS: LOSARTAN 50 MG (COZAAR) TAB PO SCH (09:29)
[2018-08-28] MEDS: VITAMIN D3 1,000 UNITS (CHOLECALCIFEROL) TABLET PO SCH (09:29)
[2018-08-28] MEDS: ASPIRIN E.C. 81 MG (ECOTRIN) TAB PO SCH (09:30)
[2018-08-28] MEDS: RANOLAZINE ER 500 MG TAB (RANEXA) PO SCH ×2 (09:30→21:18)
[2018-08-28] MEDS: inSUlin (REGULAR) HUMAN 1 UNIT/0.01 ML (CHARGE PER UNIT) SC SCH ×3 (09:33→21:19)
[2018-08-28] MEDS: inSUlin NPH (NovoLIN N) 1 UNIT/0.01 ML (CHARGE PER UNIT) SQ SCH ×2 (09:34→21:19)
[2018-08-28] MEDS: SENNA W/DOCUSATE (SENOKOT S) TABLET PO SCH ×2 (09:35→21:22)
[2018-08-28] MEDS: DOCUSATE SODIUM 100 MG (COLACE) CAP PO SCH ×2 (09:36→21:18)
--- NOTE | 2018-08-28 09:55 | Physical Therapy Daily Note ---
PT Daily Note-Current Subjective Pt agreeable to PT session. Pt states she doesn't normally drink very much water, drinks a lot of tea. States she has a lot of previous medical issues with her heart causing weakness that only allow her to walk about 100' or less at a time and that she uses a w/c otherwise. Pt with report of feeling very very tired and weak at end of session. Pain Numeric Pain Scale: 0-No Pain Appearance Pt sitting up in recliner awake and alert upon arrival, nurse present. Pt taking meds. At end of session, pt sitting up in recliner with call light, phone and table within reach. Mental Status Patient Orientation: Person, Place, Time, Eyes Open, Situation Transfers Therapy Code Descriptions/Definitions Functional [place] Measure: 0=Not Assessed/NA 4=Minimal Assistance 1=Total Assistance 5=Supervision or Setup 2=Maximal Assistance 6=Modified [place] 3=Moderate Assistance 7=Complete [place] Therapy Quality Codes: 6 Independent with activity with or without an assistive device 5 Patient requires set up or clean up by helper. Patient completes activity by themselves 4 Supervision or touching assist (CGA). [place] provide cues , steadying assist 3 The helper provides less than half the effort to complete the activity 2 The helper provides more than half the effort to complete the activity 1 Dependent. The helper does all the effort to complete an activity 7 Patient refused to complete or attempt activity 9 The patient did not perform the activity before the current illness or injury 88 Not attempted due to Medical conditions or safety concerns Transfers (B, C, W/C) (FIM): 5 Sit to/from Stand: 5 pt demonstrates good technique and hand placement during sit to and from stand transfers, 10 times during therapy session Weight Bearing Right Lower Extremity: Right Full Weight Bearing Left Lower Extremity: Left Full Weight Bearing Gait Training Does the Patient Walk?: Yes Gait (FIM): 4 Distance (FIM): 3=150 ft Distance: 600 total with 5 sitting rest breaks Gait Level of Assist: 4 Gait Persons Needed: 1 Gait Assistive Device: FWW pt unsteady with turns but able to self correct. CGA provided during gait training, occasional left foot dragging floor, debra with increasing fatigue. Good step length, fair step height until beginning to fatigue Exercises NuStep Minutes: 15 NuStep Workload: 4 (seat 8, arms 8. verbal instruction several times to keep knees in (add/IR) as her knees tend to fall out due to weak hip adductors and IR mm's) Treatments transfer, safety, balance, gait, strength, activity tolerance, functional mobility, education Assessment Pt requiring several rest breaks during therapy session, fatigues quickly, unsteady with turns while walking. Unable to continue after 60 minutes of PT this am, had OT earlier, and requesting rest break and to finish therapy session in the afternoon. Noted weak B hip adductor and IR mm's while on NuStep with Ashkan allen falling out to the sides. PT Shelter Goals Shelter Goals PT Shelter Goals Time Frame: Sep 21, 2018 Transfers (B,C,W/C) (FIM): 6 Sit to Lying (QC): 6 Lying-Sitting on Side/Bed(QC): 6 Sit to Stand (QC): 6 Rollin Roll Left to Right (QC): 6 Chair/Rbu-dx-Wjfqd Xfer(QC): 6 Car Transfer (QC): 6 Does the Patient Walk: Yes Gait (FIM): 6 Gait distance (FIM): 3=150 ft Distance: 200' Walk 10 feet (QC): 6 Walk 10ft-Uneven Surface(QC): 6 Walk 50ft with 2 Turns (QC): 6 Walk 150 ft (QC): 6 Gait Level of Assist: 6 Gait Assistive Device: FWW Stairs (FIM): 2 # of Steps: 4 1 Step (curb) (QC): 5 4 Steps (QC): 5 12 Steps (QC): 9 Stairs Level Of Assist: 5 Picking up an Object (QC): 5 PT Plan Treatment/Plan Treatment Plan: Continue Plan of Care Treatment Plan: Bed Mobility, Concurrent Therapy, Education, Functional Activity Ruthie, Functional Strength, Group Therapy, Gait, Safety, Therapeutic Exercise, Transfers Treatment Duration: Sep 21, 2018 Frequency: At least 5 of 7 days/Wk (IRF) Estimated Hrs Per Day: 1.5 hours per day Patient and/or Family Agrees t: Yes Safety Risks/Education Patient Education: Gait Training, Transfer Techniques, Safety Issues Teaching Recipient: Patient Teaching Methods: Demonstration, Discussion Response to Teaching: Verbalize Understanding, Return Demonstration, Reinforcement Needed Time/GCodes Time In: 945 Time Out: 1045 Total Billed Treatment Time: 60 Total Billed Treatment 1 visit, GT x2 units, FA x 1 unit, EX x1 unit WICHO VILLARREAL GLUE MIXER Aug 28, 2018 09:55
--- NOTE | 2018-08-28 10:58 | Occupational Ther Daily Note ---
OT Current Status-Daily Note Subjective Pt in bed, agrees to treatment. Pt reports 2/10 back pain. Mental Status/Objective Therapy Code Descriptions/Definitions Functional [place] Measure: 0=Not Assessed/NA 4=Minimal Assistance 1=Total Assistance 5=Supervision or Setup 2=Maximal Assistance 6=Modified [place] 3=Moderate Assistance 7=Complete [place] ADL-Treatment Pt supine to sit without assist. Declined shower today, states she only showers every other day at home. Sit to stand with supervision. Gait to restroom with FWW, no LOB noted. Transfer to toilet with SBA. Pt able to complete toileting hygiene and clothing management with SBA. Stood a sink to wash hands, brush teeth, and comb hair with modified independence. Transfer to bed to complete dressing tasks. Pt donned pullover shirt with set up. Able to thread bilateral LE into underwear and pants. Stood with supervision for balance during pant hike. Don bilateral socks and shoes with set up. Pt demonstrates ability to tie shoes without assist. Therapy Code Descriptions/Definitions Functional [place] Measure: 0=Not Assessed/NA 4=Minimal Assistance 1=Total Assistance 5=Supervision or Setup 2=Maximal Assistance 6=Modified [place] 3=Moderate Assistance 7=Complete [place] Therapy Quality Codes: 6 Independent with activity with or without an assistive device 5 Patient requires set up or clean up by helper. Patient completes activity by themselves 4 Supervision or touching assist (CGA). [place] provide cues , steadying assist 3 The helper provides less than half the effort to complete the activity 2 The helper provides more than half the effort to complete the activity 1 Dependent. The helper does all the effort to complete an activity 7 Patient refused to complete or attempt activity 9 The patient did not perform the activity before the current illness or injury 88 Not attempted due to Medical conditions or safety concerns Grooming (FIM): 6 Oral Hygiene (QC): 6 Upper Body (FIM): 5 Upper Body Dressing (QC): 5 Lower Body Dressing (FIM): 5 Lower Body Dressing (QC): 4 On/Off Footwear (QC): 5 Toileting (FIM): 5 Toileting Hygiene (QC): 4 Toilet/Commode Transfer (FIM): 5 Toilet Transfer (QC): 4 Other Treatment Gait to therapy gym with FWW. Slow pace, but no LOB noted. Pt completed resistance peg activity with left hand to increase coordination for functional tasks. Pt able to complete task without assist. Graded clothespin task with left hand to increase newspaper photojournalist/pinch strength. Pt has mild difficulty with heavy resistance clothespins, but able to complete with increased time. Arm arc activity using bilateral UE with 1# weights in place to increase strength needed for ADLs and transfers. Pt fatigues with activity and requires rest break when task is completed. Bilateral UE fine motor task with nuts and bolts to increase coordination/manipulation skills. Pt completes activity slowly, has mildly decreased coordination with left hand. Resistance putty activity with bilateral hands to increase strength and coordination skills. Pt able to remove small beads from moderate resistance putty with increased time. Pt returned to room, sitting in chair with needs met after session. OT Short Term Goals Short Term Goals 1=Demonstrate adherence to instructed precautions during ADL tasks. 2=Patient will verbalize/demonstrate understanding of assistive devices/chris fications for ADL. 3=Patient will improve strength/tolerance for activity to enable patient to perform ADL's. OT Fci Goals Fci Goals Time Frame: Sep 17, 2018 Eating (FIM): 6 Eating (QC): 6 Groomin Oral Hygiene (QC): 6 Bathing(FIM): 6 Shower/Bathe Self (QC): 6 Upper Body Dressing(FIM): 6 Upper Body Dressing (QC): 6 Lower Body Dressing(FIM): 6 Lower Body Dressing (QC): 6 On/Off Footwear (QC): 6 Toileting(FIM): 6 Toileting Hygiene (QC): 6 Toilet/Commode Transfer(FIM): 6 Toilet/Commode Transfer (QC): 6 Shower Transfer(FIM): 6 Additional Goals: 1-Demonstrate ADL Tasks, 2-Verbalize Understanding, 3- ImproveStrength/Ruthie 1=Demonstrate adherence to instructed precautions during ADL tasks. 2=Patient will verbalize/demonstrate understanding of assistive devices/modifications for ADL. 3=Patient will improve strength/tolerance for activity to enable patient to perform ADL's. OT Education/Plan Discharge Recommendations Plan/Recommendations: Continue POC Treatment Plan/Plan of Care Patient would benefit from OT for education, treatment and training to promote independence in ADL's, mobility, safety and/or upper extremity function for ADL's. Plan of Care: ADL Retraining, Functional Mobility, Group Exercise/Act as Ind, UE Funct Exercise/Act, UE Neuromus Re-Ed/Coord Treatment Duration: Sep 17, 2018 Frequency: At least 5 of 7 days/Wk (IRF) Estimated Hrs Per Day: 1.5 hours per day Rehab Potential: Good Time/GCodes Start Time: 08:00 Stop Time: 09:30 Total Time Billed (hr/min): 90 Billed Treatment Time 1 visit, ADLx2(35minutes), EXx4(55minutes) ADAMARIS DE LEÓN OT Aug 28, 2018 10:58
--- NOTE | 2018-08-28 11:17 | Individualized Plan of Care ---
Individualized Plan of Care Rehab Nursing IPOC Order Admission Date Aug 26, 2018 at 16:34 Current Orders Orders Admission Order(Inpt,Obs,Sdc) (08/26/18 11:24) Vital Signs: Per Unit Policy ( ,00 (08/26/18 11:24) Dietary Clerk-Inpt Rehab Con (08/26/18 11:24) Rehab Nursing Orders-Ipoc (08/26/18 11:24) Physical Therapy Rehab Orders (08/26/18 11:24) Occupational Therapy Rehab Ord (08/26/18 11:24) Speech Therapy Rehab Orders (08/26/18 11:24) Intake & Output 06,14,22 (08/26/18 11:24) Precautions (Aru) (08/26/18 11:24) Weekly Weight (Lbs) WEEK (08/26/18 11:24) Rehab-Intensity Of Therapy (08/26/18 11:24) Initiate Admission Nursing Pro .admission (08/26/18 11:24) Code/Resuscitation (08/26/18 11:24) Vital Signs: Per Unit Policy ( , (08/26/18 11:24) Dietary Clerk-Inpt Rehab Con (08/26/18 11:24) Rehab Nursing Orders-Ipoc (08/26/18 11:24) Occupational Therapy Rehab Ord (08/26/18 11:24) Speech Therapy Rehab Orders (08/26/18 11:24) Intake & Output 06,14,22 (08/26/18 11:24) Precautions (Aru) (08/26/18 11:24) Daily Weight 06 (08/26/18 11:24) Weekly Weight (Lbs) WEEK (08/26/18 11:24) Rehab-Intensity Of Therapy (08/26/18 11:24) Ambulate 08,12,20 (08/26/18 17:03) Sequential Compression Device 08,20 (08/26/18 17:03) Dvt/Vte Risk - Notifiy Physici 08 (08/26/18 17:03) Cho 60g/M 1snack (16-2000 Fox) (08/26/18 Dinner) Heart Healthy (08/26/18 Dinner) Acetaminophen Tablet (Tylenol Tablet) (08/26/18 18:30) Alprazolam Tablet (Xanax Tablet) (08/26/18 18:30) Calcium Carbonate Chew Tablet (Antacid C (08/26/18 18:30) Diphenhydramine Tablet (Benadryl Tablet) (08/26/18 18:30) Docusate Sodium Capsule (Colace Capsule) (08/26/18 18:30) Melatonin Tablet (Melatonin Tablet) (08/26/18 18:30) Ondansetron Injection (Zofran Injectio (08/26/18 18:30) Ondansetron Oral Dissolve Tab (Zofran (08/26/18 18:30) Senna S Tablet (Senokot S Tablet) (08/26/18 21:00) Cbc With Automated Diff (08/27/18 06:00) Comprehensive Metabolic Panel (08/27/18 06:00) Aspirin Enteric Coated Tablet (Ecotrin T (08/27/18 09:00) Atenolol Tablet (Tenormin Tablet) (08/26/18 21:00) Atorvastatin Tablet (Lipitor Tablet) (08/26/18 21:00) Bisacodyl Tablet (Dulcolax Tablet) (08/26/18 18:30) Clopidogrel Tablet (Plavix Tablet) (08/27/18 09:00) Docusate Sodium Capsule (Colace Capsule) (08/26/18 21:00) Furosemide Tablet (Lasix Tablet) (08/26/18 18:30) Heparin Injection (Heparin Injection) (08/26/18 18:30) Insulin Nph Human (Per Unit) (Novolin N (08/27/18 09:00) Insulin Nph Human (Per Unit) (Novolin N (08/26/18 21:00) Acetaminophen Tablet/Caplet (Tylenol T (08/26/18 18:45) Allopurinol Tablet (Zyloprim Tablet) (08/27/18 09:00) Cholecalciferol Capsule/Tablet (Vitamin (08/27/18 09:00) Insulin (Regular) Human (Humulin R (Per (08/26/18 21:00) Losartan Tablet (Cozaar Tablet) (08/27/18 09:00) Ranolazine Er Tablet (Ranexa Er Tablet) (08/26/18 21:00) Fenofibrate,Micronized Capsule (Lofibra (08/27/18 21:00) D50w (Emergency) Syringe (Dextrose 50% 5 (08/27/18 07:15) Zolpidem Tablet (Ambien Tablet) (08/27/18 09:15) Patient Visit (08/27/18 ) Pt Eval High Complexity (08/27/18 ) Exercise Therap, Ea 15 Min (08/27/18 ) Gait Training, Ea 15 Min (08/27/18 ) Patient Visit (08/27/18 ) Speech Sound Lang Comp (08/27/18 ) Patient Visit (08/28/18 ) Gait Training, Ea 15 Min (08/28/18 ) Exercise Therap, Ea 15 Min (08/28/18 ) Functional Activities, Ea 15 (08/28/18 ) Patient Visit (08/28/18 ) Exercise Therap, Ea 15 Min (08/28/18 ) Gait Training, Ea 15 Min (08/28/18 ) Patient Visit (08/28/18 ) Treat. Speech/Lang/Voice (08/28/18 ) Rehab Nursing Orders: Ongoing Assess. of Cognitive Status, Ongoing Assess. of Function Status, Bowel Management, Bowel Training, Disease Management & Educaiton, DVT Prophylaxis, Fall Prevention, Fluid/Electrolyte/Nutrition Mgmt, Infection Prevention, Medication Management & Education, Management of Risks & Complications, Management of Skin Intergrity, Pain Management, Patient/Family Support, Safety Management Intensity of Therapy to be met Patient to be seen: Min.3h per day/5 of 7d PT IPOC Problem List: Activity Tolerance, Functional Strength, Balance, Gait Treatment Plan: Continue Plan of Care Bed Mobility, Concurrent Therapy, Education, Functional Activity Ruthie, Functional Strength, Group Therapy, Gait, Safety, Therapeutic Exercise, Trans fers Treatment Duration: Sep 21, 2018 Frequency: At least 5 of 7 days/Wk (IRF) Estimated Hrs Per Day: 1.5 hours per day OT IPOC Problems: Decreased Activ Tolerance, Decreased UE Strength, Dependent Transfers, Impaired Coordination, Impaired I ADL's, Impaired Self-Care Skills OT Treatment, Training and Edu: Yes Plan of Care: ADL Retraining, Functional Mobility, Group Exercise/Act as Ind, UE Funct Exercise/Act, UE Neuromus Re-Ed/Coord Treatment Duration: Sep 17, 2018 Frequency: At least 5 of 7 days/Wk (IRF) Estimated Hrs Per Day: 1.5 hours per day [facility] Speech Therapy Treatment Plan: Continue Plan of Care Treatment Duration: Sep 06, 2018 Frequency: 5 times per week Estimated Hrs Per Day: .5 hour per day Dietary Clerk/Case Mgmt Dietary Clerk/Case Managemen: Discharge Planning Dietitian/Cold Press Loader Dietitian/Cold Press Loader to monitor nutritional status and make changes and/or recommendations as needed and work with speech pathology on dietary upgrades as the occur. Physician IP Medical Issues being managed closely and that require the 24 hour availability of a physician: Severe diabetes with inoperable CAD and cardiomyopathy will require close monitoring while in IRF due to high risk for decompensation Medical Issues: Bowel/Bladder Function, DVT Prophylaxis, Falls Precautions, Fluid/Electrolyte/Nutrition Balance, Pain Management Brief Synthesis of Preadmission Screen, Post-Admission Evaluation, and Therapy Evaluations: PT will focus on ambulation with walker and may need platform for left hand OT will focus on independent ADL's in order to return home Medical Prognosis: Good Anticipated Length of Stay: 7 days JAG KIRKLAND DO Aug 28, 2018 11:17
[2018-08-28] MEDS: ACETAMINOPHEN 325 MG TABLET PO PRN ×2 (12:58→22:04)
--- NOTE | 2018-08-28 15:13 | Physical Therapy Daily Note ---
PT Daily Note-Current Subjective Pt sitting up in recliner upon arrival. Pt had just finished with ST. Pt agrees to PT and family is present. Pain Location: No Pain Reported Mental Status Patient Orientation: Person, Place, Time, Situation Transfers Therapy Code Descriptions/Definitions Functional [place] Measure: 0=Not Assessed/NA 4=Minimal Assistance 1=Total Assistance 5=Supervision or Setup 2=Maximal Assistance 6=Modified [place] 3=Moderate Assistance 7=Complete [place] Therapy Quality Codes: 6 Independent with activity with or without an assistive device 5 Patient requires set up or clean up by helper. Patient completes activity by themselves 4 Supervision or touching assist (CGA). [place] provide cues , steadying assist 3 The helper provides less than half the effort to complete the activity 2 The helper provides more than half the effort to complete the activity 1 Dependent. The helper does all the effort to complete an activity 7 Patient refused to complete or attempt activity 9 The patient did not perform the activity before the current illness or injury 88 Not attempted due to Medical conditions or safety concerns Scootin Sit to/from Stand: 5 Sit to Stand (QC): 5 Weight Bearing Right Lower Extremity: Right Full Weight Bearing Left Lower Extremity: Left Full Weight Bearing Gait Training Does the Patient Walk?: Yes Gait (FIM): 5 Distance (FIM): 3=150 ft Distance: 150' x2 Walk 10 feet (QC): 5 Walk 50 ft with 2 Turns(QC): 5 Walk 150 ft (QC): 5 Gait Level of Assist: 5 Gait Persons Needed: 1 Gait Assistive Device: FWW Pt fatigues by end of walk but has a normalized gait. PRESS TENDER LONG GOODS stays at close SBA due to occasional giving out knees. This is not demonstrated but reported by pt. Exercises Standing: Hamstring curls, Heel/toe raises, 3 way Ex=Flex, Abd, Ext (15 reps), Marching, Sit to Stand, Weight shifts Standing Reps: 20 Treatments Pt transfers from recliner to standing using FWW. Pt ambulates in hallway. Pt completes Standing Ex at //bars with a couple short RB as needed. Pt ambulates in hallway on way back to room. Pt resting in recliner with all needs met, call light in hand. Assessment Current Status: Good Progress Pt tolerates tx well, needing occasional RB during EX for fatigue. PT Investment Recovery Technician Goals Mcc Goals PT Investment Recovery Technician Goals Time Frame: Sep 21, 2018 Transfers (B,C,W/C) (FIM): 6 Sit to Lying (QC): 6 Lying-Sitting on Side/Bed(QC): 6 Sit to Stand (QC): 6 Rollin Roll Left to Right (QC): 6 Chair/Ebd-im-Nbivo Xfer(QC): 6 Car Transfer (QC): 6 Does the Patient Walk: Yes Gait (FIM): 6 Gait distance (FIM): 3=150 ft Distance: 200' Walk 10 feet (QC): 6 Walk 10ft-Uneven Surface(QC): 6 Walk 50ft with 2 Turns (QC): 6 Walk 150 ft (QC): 6 Gait Level of Assist: 6 Gait Assistive Device: FWW Stairs (FIM): 2 # of Steps: 4 1 Step (curb) (QC): 5 4 Steps (QC): 5 12 Steps (QC): 9 Stairs Level Of Assist: 5 Picking up an Object (QC): 5 PT Plan Problem List Problem List: Activity Tolerance, Functional Strength, Balance, Gait Treatment/Plan Treatment Plan: Continue Plan of Care Treatment Plan: Bed Mobility, Concurrent Therapy, Education, Functional Activity Ruthie, Functional Strength, Group Therapy, Gait, Safety, Therapeutic Exercise, Transfers Treatment Duration: Sep 21, 2018 Frequency: At least 5 of 7 days/Wk (IRF) Estimated Hrs Per Day: 1.5 hours per day Patient and/or Family Agrees t: Yes Safety Risks/Education Patient Education: Gait Training, Transfer Techniques, Correct Positioning, Safety Issues Teaching Recipient: Patient Teaching Methods: Discussion Response to Teaching: Verbalize Understanding Time/GCodes Time In: 1430 Time Out: 1500 Total Billed Treatment Time: 30 Total Billed Treatment 1, GT (10m) & EX (20m) G Codes Necessary: HIMANSHU Thapa PRESS TENDER LONG GOODS Aug 28, 2018 15:12
--- NOTE | 2018-08-28 15:19 | Speech Therapy Daily Note ---
Speech Daily Progress Note Subjective Date Seen by Provider: Aug 28, 2018 Time Seen by Provider: 00:30 The patient was resting in her recliner when I arrived. Objective The patient completed general information questions with 80% accuracy given min to mod verbal cues. Assessment Assessment Current Status: Good Progress Treatment Plan Continue Plan of Care Communication Comprehension: 6 Expression: 6 Social Cognition Social Interaction: 7 Problem Solvin Memory: 5 Speech Short Term Goals Short Term Goals Short Term Goals 1) The patient will complete memory tasks related to her daily needs at 90% or greater independently. 2) The patient will complete problem solving tasks related to her daily needs at 90% or greater independently. 3) The patient will complete recall of new information related to her daily needs at 90% or greater independently. Speech Shift Mgr Goals Half-Way Goals The patient will increase cognitive skills for safety and independence. Speech-Plan Patient/Family Goals Patient/Family Goals: The patient is scheduled to return home in the next few days. Treatment Plan Speech Therapy Treatment Plan: Continue Plan of Care The patient states she feels much better. Treatment Duration: Sep 03, 2018 Frequency: 5 times per week Estimated Hrs Per Day: .5 hour per day Rehab Potential: Good Barriers to Learning: New onset CVA Pt/Family Agrees to Plan: Yes Safety Risks/Education Teaching Recipient: Patient Teaching Methods: Discussion Response to Teaching: Verbalize Understanding Education Topics Provided: Safety in her room and upon her return home. Time Speech Therapy Time In: 14:00 Speech Therapy Time Out: 14:30 Total Billed Time: 30 Billed Treatment Time 1MELISSA BETH[address] ST Aug 28, 2018 15:19
--- NOTE | 2018-08-28 16:50 | NUR ---
INSURANCE ACTUARY met with patient to review team conference summary. As patient is performing dressing, toileting, ADL transfers and sit to stand with standby assistance and gait with min assist team is recommended patient proceed with discharge on . This discharge date will also accommodate the need for patient to attend her [facility] appointment on 09/02. INSURANCE ACTUARY will confirm time of appt. INSURANCE ACTUARY reviewed recommendations of home health services for PT, OT and RN, patient is agreeable. Following review of Medicare approved providers, she prefers to utilize [facility] health. INSURANCE ACTUARY will notify Yazmin, event coordinator marketing and sales of referral. Patient expresses no further needs at this time. INSURANCE ACTUARY will continue to follow.
[2018-08-28 17:21] VITALS: BP 138/90
[2018-08-28] MEDS: ATORVASTATIN 80 MG (LIPITOR) TABLET PO SCH (21:18)
[2018-08-28] MEDS: FENOFIBRATE, MICRO 67 MG (LOFIBRA) CAPSULE PO SCH (21:18)
[2018-08-28] MEDS: ZOLPIDEM 5 MG (AMBIEN) TAB PO PRN (22:04)
[2018-08-29 05:11] VITALS: BP 126/79
--- NOTE | 2018-08-29 07:59 | PM&R Progress Note ---
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 She was assessed to have a stroke given the option of given TPA but she declined. She reports that she has been disabled for 5 years due to severe neuropathy upper and lower extremities due to diabetes mellitus of which she has not been the best in controlling on insulin. She also had a heart attack in 2015 and cardiology performed cardiac catheterization showing multivessel disease sent over to [facility] and from there they sent her to [facility] considering the very small coronary vessels that could not have any intervention in addition the lower part of her heart was unable to be managed with bypass surgery so she has inoperable CAD and was not interested in proceeding on with heart transplant as presented several years ago. Her hemoglobin A1c is 10 and she overall has difficulty walking with a walker because her left hand keeps on slipping off the walker. She will need a platform on the left side. Overall she had no significant decompensation during the hospital course of [facility] and has arrived in inpatient rehab to recover prior to returning home to live alone. Her family is involved in her care. PLOF was independent with ambulation and ADL's. Subjective/Events-last exam No significant issues. Will have follow-up with endocrinology after discharge Sunday at 1:00 Talked about the glucometer that monitors glucose continuously and endocrinology will discuss that. Denies any pain. Bowels are moving per her routine. Checked meds and labs Conferred with RN Reviewed PT notes May need platform for left hand that falls off walker Review of Systems General: Fatigue Neurological: Numbness Objective Exam Vital Signs Vital Signs Date Time Temp Pulse Resp B/P (MAP) Pulse Ox O2 Delivery O2 Flow Rate FiO2 08/29/18 16:01 97.8 63 16 122/78 (93) 98 Room Air Capillary Refill : Less Than 3 Seconds General Appearance: No Apparent Distress, WD/WN, Chronically ill HEENT: PERRL/EOMI, TMs Normal, Normal ENT Inspection, Pharynx Normal, Moist Mucous Membranes Neck: Full Range of Motion, Normal Inspection, Non Tender, Supple Respiratory: Chest Non Tender, Lungs Clear, Normal Breath Sounds, No Accessory Muscle Use, No Respiratory Distress Cardiovascular: Regular Rate, Rhythm, No Edema, No Gallop, No JVD, No Murmur Gastrointestinal: Normal Bowel Sounds, No Organomegaly, No Pulsatile Mass, Non Tender, Soft Back: Normal Inspection, No CVA Tenderness, No Vertebral Tenderness Extremity: Normal Capillary Refill, Normal Inspection, Normal Range of Motion, Non Tender, No Calf Tenderness, No Pedal Edema Neurologic/Psychiatric: Alert, Oriented x3, Normal Mood/Affect, Abnormal assistant executive housekeeper II -XII (left), Abnormal Gait, Facial Droop (left), Motor Weakness (left upper and lower extremity 4/5), Sensory Deficit (hands and feet) Skin: Normal Color, Warm/Dry Lymphatic: No Adenopathy Results/Procedures Lab Patient resulted labs reviewed. FIM Transfers Therapy Code Descriptions/Definitions Functional [place] Measure: 0=Not Assessed/NA 4=Minimal Assistance 1=Total Assistance 5=Supervision or Setup 2=Maximal Assistance 6=Modified [place] 3=Moderate Assistance 7=Complete [place] Therapy Quality Codes: 6 Independent with activity with or without an assistive device 5 Patient requires set up or clean up by helper. Patient completes activity by themselves 4 Supervision or touching assist (CGA). [place] provide cues , steadying assist 3 The helper provides less than half the effort to complete the activity 2 The helper provides more than half the effort to complete the activity 1 Dependent. The helper does all the effort to complete an activity 7 Patient refused to complete or attempt activity 9 The patient did not perform the activity before the current illness or injury 88 Not attempted due to Medical conditions or safety concerns Transfers (B, C, W/C) (FIM): 5 Scootin Rollin Roll Left to Right (QC): 6 Supine to/from Sit: 6 Sit to/from Stand: 5 Sit to Lying (QC): 6 Sit to Stand (QC): 5 Chair/Xph-fq-Jdodd Xfer(QC): 5 Car Transfer (QC): 6 Gait Training Does the Patient Walk?: Yes Gait (FIM): 5 Distance (FIM): 3=150 ft Distance: 150' x2 Walk 10 feet (QC): 5 Walk 50 ft with 2 Turns(QC): 5 Walk 150 ft (QC): 5 Walking 10ft/uneven surface-QC: 5 Gait Level of Assist: 5 Gait Persons Needed: 1 Gait Assistive Device: FWW Wheelchair Training Does the Pt Use a Wheelchair?: No Stair Training Stairs (FIM): 1 #of Steps: 1 1 Step (curb) (QC): 4 4 Steps (QC): 88 12 Steps (QC): 9 Level of Assist: 4 Mental Status/Objective Comprehension: 6 Expression: 6 Social Interaction: 7 Problem Solvin Memory: 5 ADL-Treatment Feedin (Pt reports feeding self, managing containers, and cutting food without assist.) Eating (QC): 6 Groomin Oral Hygiene (QC): 6 Bathin (CGA) Shower/Bathe Self (QC): 4 Upper Extremity Dressin Upper Body Dressing (QC): 5 Lower Extremity Dressin Lower Body Dressing (QC): 4 On/Off Footwear (QC): 5 Toiletin Toileting Hygiene (QC): 4 Toilet/Commode Transfer: 5 Toilet Transfer (QC): 4 Shower: 5 Assessment/Plan Assessment and Plan Assess & Plan/Chief Complaint Assessment: CVA w/residual left facial droop and left upper and lower extremity weakness dec lined tPA DM poorly controlled 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 at [facility] 2015 HTN HLP CRI Insomnia GERD Gastroparesis OP Neuropathy Plan: IRF protocol Accuchecks SSI Monitor closely DC Sunday in time to go to Endo appt Sunday (1) CVA (cerebral vascular accident) (2) Insomnia (3) Intravenous tissue plasminogen activator (tPA) declined by parent (4) Facial droop as late effect of cerebrovascular accident (CVA) (5) Left hemiparesis (6) Gastroparesis (7) Hypertension (8) GERD (gastroesophageal reflux disease) (9) Renal insufficiency (10) Neuropathy (11) Hyperlipemia (12) CAD (coronary artery disease) (13) Osteoporosis (14) Diabetes mellitus (15) Slurred speech (16) Constipation JAG KIRKLAND DO Aug 29, 2018 07:58
[2018-08-29] MEDS: ASPIRIN E.C. 81 MG (ECOTRIN) TAB PO SCH (08:08)
[2018-08-29] MEDS: ATENOLOL 25 MG (TENORMIN) TAB PO SCH ×2 (08:08→21:10)
[2018-08-29] MEDS: CLOPIDOGREL 75 MG (PLAVIX) TABLET PO SCH (08:08)
[2018-08-29] MEDS: SENNA W/DOCUSATE (SENOKOT S) TABLET PO SCH ×2 (08:08→21:09)
[2018-08-29] MEDS: ALLOPURINOL 300 MG (ZYLOPRIM) TAB PO SCH (08:08)
[2018-08-29] MEDS: LOSARTAN 50 MG (COZAAR) TAB PO SCH (08:08)
[2018-08-29] MEDS: RANOLAZINE ER 500 MG TAB (RANEXA) PO SCH ×2 (08:09→21:09)
[2018-08-29] MEDS: VITAMIN D3 1,000 UNITS (CHOLECALCIFEROL) TABLET PO SCH (08:09)
[2018-08-29] MEDS: inSUlin (REGULAR) HUMAN 1 UNIT/0.01 ML (CHARGE PER UNIT) SC SCH ×3 (08:10→21:13)
[2018-08-29] MEDS: inSUlin NPH (NovoLIN N) 1 UNIT/0.01 ML (CHARGE PER UNIT) SQ SCH ×2 (08:11→21:18)
[2018-08-29] MEDS: DOCUSATE SODIUM 100 MG (COLACE) CAP PO SCH ×2 (08:16→21:22)
--- NOTE | 2018-08-29 09:15 | Physical Therapy Daily Note ---
PT Daily Note-Current Subjective Pt sitting in recliner upon arrival. Pt agrees to PT. Pt is excited for probable D/C on Sunday (09/02). Pain Numeric Pain Scale: 3 Location: Lower Location Body Site: Back Pain Description: Ache, Dull, Chronic Mental Status Patient Orientation: Person, Place, Time, Situation Transfers Therapy Code Descriptions/Definitions Functional [place] Measure: 0=Not Assessed/NA 4=Minimal Assistance 1=Total Assistance 5=Supervision or Setup 2=Maximal Assistance 6=Modified [place] 3=Moderate Assistance 7=Complete [place] Therapy Quality Codes: 6 Independent with activity with or without an assistive device 5 Patient requires set up or clean up by helper. Patient completes activity by themselves 4 Supervision or touching assist (CGA). [place] provide cues , steadying lukas t 3 The helper provides less than half the effort to complete the activity 2 The helper provides more than half the effort to complete the activity 1 Dependent. The helper does all the effort to complete an activity 7 Patient refused to complete or attempt activity 9 The patient did not perform the activity before the current illness or injury 88 Not attempted due to Medical conditions or safety concerns Scootin Sit to/from Stand: 5 Sit to Stand (QC): 5 Weight Bearing Right Lower Extremity: Right Full Weight Bearing Left Lower Extremity: Left Full Weight Bearing Gait Training Does the Patient Walk?: Yes Gait (FIM): 5 Distance (FIM): 3=150 ft Distance: 80', 80' Walk 10 feet (QC): 5 Walk 50 ft with 2 Turns(QC): 5 Walk 150 ft (QC): 5 Gait Level of Assist: 5 Gait Persons Needed: 1 Gait Assistive Device: FWW LAUNDRY SUPERVISOR walks SBA with pt due to pt report of occasional knee buckling although LAUNDRY SUPERVISOR has not seen it yet. Exercises Supine Ex: Ankle pumps, Quad Set, Glut sets, Heel Slides, Straight leg raise, Hip abd/add Seated Therapy Exercises: Ankle pumps, Long arc quads, Hip flexion, Kicking activity NuStep Minutes: 15 NuStep Workload: 4 Treatments Pt transfers from recliner and uses restroom before leaving to begin PT tx. Pt ambulates in hallway using FWW. Pt uses NuStep for 15m at WL 4 then short RB. Pt returns to room to rest in recliner. LAUNDRY SUPERVISOR gives pt ed over HEP for Supine & Seated Ex. Pt is resting in recliner at end of tx with all needs met, call light in hand. Assessment Current Status: Good Progress Pt is improving each tx and anticipating D/C on Sunday (09/02). PT Usp Goals Usp Goals PT Usp Goals Time Frame: Sep 21, 2018 Transfers (B,C,W/C) (FIM): 6 Sit to Lying (QC): 6 Lying-Sitting on Side/Bed(QC): 6 Sit to Stand (QC): 6 Rollin Roll Left to Right (QC): 6 Chair/Dtd-vz-Qylch Xfer(QC): 6 Car Transfer (QC): 6 Does the Patient Walk: Yes Gait (FIM): 6 Gait distance (FIM): 3=150 ft Distance: 200' Walk 10 feet (QC): 6 Walk 10ft-Uneven Surface(QC): 6 Walk 50ft with 2 Turns (QC): 6 Walk 150 ft (QC): 6 Gait Level of Assist: 6 Gait Assistive Device: FWW Stairs (FIM): 2 # of Steps: 4 1 Step (curb) (QC): 5 4 Steps (QC): 5 12 Steps (QC): 9 Stairs Level Of Assist: 5 Picking up an Object (QC): 5 PT Plan Problem List Problem List: Activity Tolerance, Functional Strength Treatment/Plan Treatment Plan: Continue Plan of Care Treatment Plan: Bed Mobility, Concurrent Therapy, Education, Functional Activity Ruthie, Functional Strength, Group Therapy, Gait, Safety, Therapeutic Exercise, Transfers Treatment Duration: Sep 21, 2018 Frequency: At least 5 of 7 days/Wk (IRF) Estimated Hrs Per Day: 1.5 hours per day Patient and/or Family Agrees t: Yes Safety Risks/Education Patient Education: Gait Training, Transfer Techniques, Issued Written HEP, Correct Positioning, Safety Issues Teaching Recipient: Patient Teaching Methods: Demonstration, Discussion Response to Teaching: Verbalize Understanding Time/GCodes Time In: 815 Time Out: 900 Total Billed Treatment Time: 45 Total Billed Treatment 1, GT (15m) & EX x2 (30m) G Codes Necessary: HIMANSHU Thapa LAUNDRY SUPERVISOR Aug 29, 2018 09:15
--- NOTE | 2018-08-29 11:16 | Occupational Ther Daily Note ---
OT Current Status-Daily Note Subjective No pain reported. Appearance Pt. up in chair. Agrees to work with OT. Mental Status/Objective Patient Orientation: Person, Place, Time, Situation Therapy Code Descriptions/Definitions Functional [place] Measure: 0=Not Assessed/NA 4=Minimal Assistance 1=Total Assistance 5=Supervision or Setup 2=Maximal Assistance 6=Modified [place] 3=Moderate Assistance 7=Complete [place] ADL-Treatment Therapy Code Descriptions/Definitions Functional [place] Measure: 0=Not Assessed/NA 4=Minimal Assistance 1=Total Assistance 5=Supervision or Setup 2=Maximal Assistance 6=Modified [place] 3=Moderate Assistance 7=Complete [place] Therapy Quality Codes: 6 Independent with activity with or without an assistive device 5 Patient requires set up or clean up by helper. Patient completes activity by themselves 4 Supervision or touching assist (CGA). [place] provide cues , steadying assist 3 The helper provides less than half the effort to complete the activity 2 The helper provides more than half the effort to complete the activity 1 Dependent. The helper does all the effort to complete an activity 7 Patient refused to complete or attempt activity 9 The patient did not perform the activity before the current illness or injury 88 Not attempted due to Medical conditions or safety concerns Grooming (FIM): 5 Oral Hygiene (QC): 5 Bathing (FIM): 5 Shower/Bathe Self (QC): 4 Upper Body (FIM): 5 Upper Body Dressing (QC): 4 Lower Body Dressing (FIM): 5 Lower Body Dressing (QC): 4 On/Off Footwear (QC): 4 Toileting (FIM): 6 Toileting Hygiene (QC): 6 Transfers (B, C, W/C) (FIM): 5 Toilet/Commode Transfer (FIM): 5 Toilet Transfer (QC): 4 Shower Transfer(FIM): 5 Other Treatment Pt. up in chair. Agrees to shower. Pt. ambulated shower with SBA and completed bathing/dressing with SBA. Ambulated to therapy gym and completed series of fine motor exercises to increase strength and coordination with left hand. Pt. reports that buttons are difficult for her, but that she has seen a button hook. OT introduced elastic laces to her, as she reports that tying her shoes is difficult. OT applied them and these work well for pt. Donned 1 lb wrist weights and completed nut/bolt activity for increased fine motor strength and coordination. Tolerated this well. All needs met back in room. Education OT Patient Education: Exercise program, Modified ADL techniques, Progress toward Goal/Update tx plan, Purpose of tx/functional activities, Reviewed precautions, Rehab process, Transfer techniques Teaching Recipient: Patient Teaching Methods: Demonstration, Discussion Response to Teaching: Verbalize Understanding, Return Demonstration OT Short Term Goals Short Term Goals 1=Demonstrate adherence to instructed precautions during ADL tasks. 2=Patient will verbalize/demonstrate understanding of assistive devices/modifications for ADL. 3=Patient will improve strength/tolerance for activity to enable patient to perform ADL's. OT Fire Engine Operator Goals [facility] Goals Time Frame: Sep 17, 2018 Eating (FIM): 6 Eating (QC): 6 Groomin Oral Hygiene (QC): 6 Bathing(FIM): 6 Shower/Bathe Self (QC): 6 Upper Body Dressing(FIM): 6 Upper Body Dressing (QC): 6 Lower Body Dressing(FIM): 6 Lower Body Dressing (QC): 6 On/Off Footwear (QC): 6 Toileting(FIM): 6 Toileting Hygiene (QC): 6 Toilet/Commode Transfer(FIM): 6 Toilet/Commode Transfer (QC): 6 Shower Transfer(FIM): 6 Additional Goals: 1-Demonstrate ADL Tasks, 2-Verbalize Understanding, 3-ImproveStrength/Ruthie 1=Demonstrate adherence to instructed precautions during ADL tasks. 2=Patient will verbalize/demonstrate understanding of assistive devices/modifications for ADL. 3=Patient will improve strength/tolerance for activity to enable patient to perform ADL's. OT Education/Plan Problem List/Assessment Assessment: Decreased Activ Tolerance, Decreased UE Strength, Dependent Transfers, Impaired Coordination, Impaired I ADL's, Impaired Self-Care Skills, Restricted Funct UE ROM Discharge Recommendations Plan/Recommendations: Continue POC Therapy D/C Recommendations: Home w/ Family Support, Occupational Therapy Home Care Treatment Plan/Plan of Care Treatment,Training & Education: Yes Patient would benefit from OT for education, treatment and training to promote independence in ADL's, mobility, safety and/or upper extremity function for ADL's. Plan of Care: ADL Retraining, Functional Mobility, Group Exercise/Act as Ind, UE Funct Exercise/Act, UE Neuromus Re-Ed/Coord Treatment Duration: Sep 17, 2018 Frequency: At least 5 of 7 days/Wk (IRF) Estimated Hrs Per Day: 1.5 hours per day Agreement: Yes Rehab Potential: Good Time/GCodes Start Time: 09:20 Stop Time: 10:50 Total Time Billed (hr/min): 90 Billed Treatment Time 1, ADL x 45minutes, FA x 45minutes MIGUEL AVALOS OT Aug 29, 2018 11:16
--- NOTE | 2018-08-29 12:59 | Speech Therapy Daily Note ---
Speech Daily Progress Note Subjective Date Seen by Provider: Aug 29, 2018 Time Seen by Provider: 00:30 The patient was resting in her recliner waiting on therapy to begin when I entered. Objective The patient completed memory tasks at 80% with decreased verbal cues today. Assessment Assessment Current Status: Good Progress Treatment Plan Continue Plan of Care Communication Comprehension: 6 Expression: 6 Social Cognition Social Interaction: 7 Problem Solvin Memory: 5 Speech Short Term Goals Short Term Goals Short Term Goals 1) The patient will complete memory tasks related to her daily needs at 90% or greater independently. 2) The patient will complete problem solving tasks related to her daily needs at 90% or greater independently. 3) The patient will complete recall of new information related to her daily needs at 90% or greater independently. Speech Halfway Goals Halfway Goals The patient will increase cognitive skills for safety and independence. Speech-Plan Patient/Family Goals Patient/Family Goals: The patient plans on returning home post rehab with family support. Treatment Plan Speech Therapy Treatment Plan: Continue Plan of Care The patient is progressing well toward meeting her goals. Treatment Duration: Sep 03, 2018 Frequency: 5 times per week Estimated Hrs Per Day: .5 hour per day Rehab Potential: Good Barriers to Learning: New onset CVA Pt/Family Agrees to Plan: Yes Safety Risks/Education Teaching Recipient: Patient Teaching Methods: Discussion Response to Teaching: Verbalize Understanding Education Topics Provided: Safety in her room. Time Speech Therapy Time In: 11:30 Speech Therapy Time Out: 12:00 Total Billed Time: 30 Billed Treatment Time 1RAPHAELKEVIN Imelda [address]YS[address] Aug 29, 2018 12:59
--- NOTE | 2018-08-29 13:49 | Physical Therapy Daily Note ---
PT Daily Note-Current Subjective Pt sitting in recliner upon arrival. Pt agrees to PT. PT will observe tomorrow for possible Ad lisbeth in room to see if pt has improved for safe ambulation. Pain Location: No Pain Reported Mental Status Patient Orientation: Person, Place, Time, Situation Transfers Therapy Code Descriptions/Definitions Functional [place] Measure: 0=Not Assessed/NA 4=Minimal Assistance 1=Total Assistance 5=Supervision or Setup 2=Maximal Assistance 6=Modified [place] 3=Moderate Assistance 7=Complete [place] Therapy Quality Codes: 6 Independent with activity with or without an assistive device 5 Patient requires set up or clean up by helper. Patient completes activity by themselves 4 Supervision or touching assist (CGA). [place] provide cues , steadying assist 3 The helper provides less than half the effort to complete the activity 2 The helper provides more than half the effort to complete the activity 1 Dependent. The helper does all the effort to complete an activity 7 Patient refused to complete or attempt activity 9 The patient did not perform the activity before the current illness or injury 88 Not attempted due to Medical conditions or safety concerns Scootin Sit to/from Stand: 5 Sit to Stand (QC): 5 Weight Bearing Right Lower Extremity: Right Full Weight Bearing Left Lower Extremity: Left Full Weight Bearing Gait Training Does the Patient Walk?: Yes Gait (FIM): 5 Distance (FIM): 3=150 ft Distance: 80', 80' Walk 10 feet (QC): 5 Walk 50 ft with 2 Turns(QC): 5 Walk 150 ft (QC): 5 Gait Level of Assist: 5 Gait Persons Needed: 1 Gait Assistive Device: FWW Wheelchair Training Does the Pt Use a Wheelchair?: No Stair Training Stair Training: Handrails/: 2 handrails #of Steps: 4 1 Step (curb) (QC): 4 4 Steps (QC): 4 Stairs: Pattern: Step to Level of Assist: 4 Pt will need to complete at least 3 steps to enter her sister's house. This is practiced but pt reports being very afraid of heights and will not complete higher staircase. Treatments Pt transfers from recliner and ambulates in hallway. Pt completes 1 set of 4 steps then short RB. Pt ambulates in hallway then uses restroom, resting in recliner at end of tx. Pt has all needs met, call light in hand. Assessment Current Status: Good Progress Pt tolerates tx well. PT Pediatrician/Medical Doctor Goals Assisted Goals PT Pediatrician/Medical Doctor Goals Time Frame: Sep 21, 2018 Transfers (B,C,W/C) (FIM): 6 Sit to Lying (QC): 6 Lying-Sitting on Side/Bed(QC): 6 Sit to Stand (QC): 6 Rollin Roll Left to Right (QC): 6 Chair/Vfw-hl-Nivrr Xfer(QC): 6 Car Transfer (QC): 6 Does the Patient Walk: Yes Gait (FIM): 6 Gait distance (FIM): 3=150 ft Distance: 200' Walk 10 feet (QC): 6 Walk 10ft-Uneven Surface(QC): 6 Walk 50ft with 2 Turns (QC): 6 Walk 150 ft (QC): 6 Gait Level of Assist: 6 Gait Assistive Device: FWW Stairs (FIM): 2 # of Steps: 4 1 Step (curb) (QC): 5 4 Steps (QC): 5 12 Steps (QC): 9 Stairs Level Of Assist: 5 Picking up an Object (QC): 5 PT Plan Problem List Problem List: Activity Tolerance, Functional Strength Treatment/Plan Treatment Plan: Continue Plan of Care Treatment Plan: Bed Mobility, Concurrent Therapy, Education, Functional Activity Ruthie, Functional Strength, Group Therapy, Gait, Safety, Therapeutic Exercise, Transfers Treatment Duration: Sep 21, 2018 Frequency: At least 5 of 7 days/Wk (IRF) Estimated Hrs Per Day: 1.5 hours per day Patient and/or Family Agrees t: Yes Safety Risks/Education Patient Education: Gait Training, Transfer Techniques, Steps, Correct Positioning, Safety Issues Teaching Recipient: Patient Teaching Methods: Discussion Response to Teaching: Verbalize Understanding Time/GCodes Time In: 1300 Time Out: 1330 Total Billed Treatment Time: 30 Total Billed Treatment 1, GT (15m) & FA (15m) G Codes Necessary: HIMANSHU Thapa COACH BUILDER Aug 29, 2018 13:49
[2018-08-29 16:01] VITALS: BP 122/78
--- NOTE | 2018-08-29 19:19 | NUR ---
bedside report received from ELIDIA RANDOLPH, assume care of pt
--- NOTE | 2018-08-29 21:00 | NUR ---
assessments & interventions completed, see assessments & interventions, up in the chair up to bathroom with standby assist
[2018-08-29] MEDS: ATORVASTATIN 80 MG (LIPITOR) TABLET PO SCH (21:09)
--- NOTE | 2018-08-29 21:09 | NUR ---
fsbs 227, refused colace 100mg, insulin given as scheduled
[2018-08-29] MEDS: FENOFIBRATE, MICRO 67 MG (LOFIBRA) CAPSULE PO SCH (21:10)
[2018-08-29] MEDS: ZOLPIDEM 5 MG (AMBIEN) TAB PO PRN (22:18)
[2018-08-30 05:33] VITALS: BP 117/74
--- NOTE | 2018-08-30 07:17 | NUR ---
bedside report given to MOY RANDOLPH
[2018-08-30] MEDS: VITAMIN D3 1,000 UNITS (CHOLECALCIFEROL) TABLET PO SCH (08:57)
[2018-08-30] MEDS: LOSARTAN 50 MG (COZAAR) TAB PO SCH (08:57)
[2018-08-30] MEDS: CLOPIDOGREL 75 MG (PLAVIX) TABLET PO SCH (08:57)
[2018-08-30] MEDS: DOCUSATE SODIUM 100 MG (COLACE) CAP PO SCH ×2 (08:57→21:11)
[2018-08-30] MEDS: SENNA W/DOCUSATE (SENOKOT S) TABLET PO SCH ×2 (08:57→21:10)
[2018-08-30] MEDS: ASPIRIN E.C. 81 MG (ECOTRIN) TAB PO SCH (08:57)
[2018-08-30] MEDS: ATENOLOL 25 MG (TENORMIN) TAB PO SCH ×2 (08:57→21:10)
[2018-08-30] MEDS: RANOLAZINE ER 500 MG TAB (RANEXA) PO SCH ×2 (08:57→21:10)
[2018-08-30] MEDS: ALLOPURINOL 300 MG (ZYLOPRIM) TAB PO SCH (08:57)
[2018-08-30] MEDS: inSUlin NPH (NovoLIN N) 1 UNIT/0.01 ML (CHARGE PER UNIT) SQ SCH ×2 (08:58→21:11)
[2018-08-30] MEDS: inSUlin (REGULAR) HUMAN 1 UNIT/0.01 ML (CHARGE PER UNIT) SC SCH ×3 (08:58→17:37)
--- NOTE | 2018-08-30 09:04 | Physical Therapy Daily Note ---
PT Daily Note-Current Subjective States she is excited to go home Mon and feels safe and confident about it as she will stay with her daughter for a while Pain Location: No Pain Reported Mental Status Patient Orientation: Normal For Age Transfers Therapy Code Descriptions/Definitions Functional [place] Measure: 0=Not Assessed/NA 4=Minimal Assistance 1=Total Assistance 5=Supervision or Setup 2=Maximal Assistance 6=Modified [place] 3=Moderate Assistance 7=Complete [place] Therapy Quality Codes: 6 Independent with activity with or without an assistive device 5 Patient requires set up or clean up by helper. Patient completes activity by themselves 4 Supervision or touching assist (CGA). [place] provide cues , steadying assist 3 The helper provides less than half the effort to complete the activity 2 The helper provides more than half the effort to complete the activity 1 Dependent. The helper does all the effort to complete an activity 7 Patient refused to complete or attempt activity 9 The patient did not perform the activity before the current illness or injury 88 Not attempted due to Medical conditions or safety concerns Transfers (B, C, W/C) (FIM): 6 Scootin Rollin Supine to/from Sit: 6 Sit to/from Stand: 6 Bed to/from Chair: 6 reviewed sup to side to sit log roll TRF for back safety Weight Bearing Right Lower Extremity: Right Full Weight Bearing Left Lower Extremity: Left Full Weight Bearing Gait Training Does the Patient Walk?: Yes Gait (FIM): 6 Distance (FIM): 3=150 ft (200x3) Gait Level of Assist: 6 Gait Persons Needed: 0 Gait Assistive Device: FWW safe technique noted Stair Training Stair Training: Handrails/: 2 handrails Stairs (FIM): 2 #of Steps: 4 Stairs: Pattern: Step to Level of Assist: 4 states she has a fear of steps and heights but that her kids help her every time she does steps Exercises Supine Ex: Bridging, Ankle pumps, Quad Set, Rolling, Glut sets, Heel Slides, Short Arc Quads, Scooting, Hip abd/add Supine Reps: 15 Standing: Hip Abduction, Hamstring curls, Heel/toe raises, Marching, Mini squats Standing Reps: 15 NuStep Minutes: 12 NuStep Workload: 4 Assessment Current Status: Good Progress PT Soyfreeze Operator Goals Soyfreeze Operator Goals PT Senior Care Goals Time Frame: Sep 21, 2018 Transfers (B,C,W/C) (FIM): 6 Sit to Lying (QC): 6 Lying-Sitting on Side/Bed(QC): 6 Sit to Stand (QC): 6 Rollin Roll Left to Right (QC): 6 Chair/Luu-ik-Fjbca Xfer(QC): 6 Car Transfer (QC): 6 Does the Patient Walk: Yes Gait (FIM): 6 Gait distance (FIM): 3=150 ft Distance: 200' Walk 10 feet (QC): 6 Walk 10ft-Uneven Surface(QC): 6 Walk 50ft with 2 Turns (QC): 6 Walk 150 ft (QC): 6 Gait Level of Assist: 6 Gait Assistive Device: FWW Stairs (FIM): 2 # of Steps: 4 1 Step (curb) (QC): 5 4 Steps (QC): 5 12 Steps (QC): 9 Stairs Level Of Assist: 5 Picking up an Object (QC): 5 PT Plan Treatment/Plan Treatment Plan: Continue Plan of Care Treatment Plan: Bed Mobility, Concurrent Therapy, Education, Functional Activity Ruthie, Functional Strength, Group Therapy, Gait, Safety, Therapeutic Exercise, Transfers Treatment Duration: Sep 21, 2018 Frequency: At least 5 of 7 days/Wk (IRF) Estimated Hrs Per Day: 1.5 hours per day Patient and/or Family Agrees t: Yes Safety Risks/Education Patient Education: Gait Training, Transfer Techniques, Steps, Correct Positioning, Disease Process, Safety Issues Teaching Recipient: Patient Teaching Methods: Demonstration, Discussion Response to Teaching: Verbalize Understanding, Return Demonstration, Re inforcement Needed Time/GCodes Time In: 800 Time Out: 900 Total Billed Treatment Time: 60 Total Billed Treatment 1,EX30m,GT20m,FA10m G Codes Necessary: SEYMOUR Carrillo JUKEBOX ROUTE DRIVER Aug 30, 2018 09:04
--- NOTE | 2018-08-30 09:11 | PM&R Progress Note ---
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 She was assessed to have a stroke given the option of given TPA but she declined. She reports that she has been disabled for 5 years due to severe neuropathy upper and lower extremities due to diabetes mellitus of which she has not been the best in controlling on insulin. She also had a heart attack in 2014 and cardiology performed cardiac catheterization showing multivessel disease sent over to [facility] and from there they sent her to [facility] considering the very small coronary vessels that could not have any intervention in addition the lower part of her heart was unable to be managed with bypass surgery so she has inoperable CAD and was not interested in proceeding on with heart transplant as presented several years ago. Her hemoglobin A1c is 10 and she overall has difficulty walking with a walker because her left hand keeps on slipping off the walker. She will need a platform on the left side. Overall she had no significant decompensation during the hospital course of [facility] and has arrived in inpatient rehab to recover prior to returning home to live alone. Her family is involved in her care. PLOF was independent with ambulation and ADL's. Subjective/Events-last exam No significant issues. Will have follow-up with endocrinology on Sunday at 1:00 Talked about the glucometer that monitors glucose continuously and endocrinology will discuss that. Denies any pain. Bowels are moving per her routine. Checked meds and labs Conferred with RN Reviewed PT notes DC planned for Sunday Review of Systems Neurological: Incoordination, Change in speech Objective Exam Vital Signs Vital Signs Date Time Temp Pulse Resp B/P (MAP) Pulse Ox O2 Delivery O2 Flow Rate FiO2 08/30/18 08:48 Room Air 08/30/18 05:33 97.8 67 18 117/74 (88) 99 Capillary Refill : Less Than 3 Seconds General Appearance: No Apparent Distress, WD/WN, Chronically ill HEENT: PERRL/EOMI, TMs Normal, Normal ENT Inspection, Pharynx Normal, Moist Mucous Membranes Neck: Full Range of Motion, Normal Inspection, Non Tender, Supple Respiratory: Chest Non Tender, Lungs Clear, Normal Breath Sounds, No Accessory Muscle Use, No Respiratory Distress Cardiovascular: Regular Rate, Rhythm, No Edema, No Gallop, No JVD, No Murmur Gastrointestinal: Normal Bowel Sounds, No Organomegaly, No Pulsatile Mass, Non Tender, Soft Back: Normal Inspection, No CVA Tenderness, No Vertebral Tenderness Extremity: Normal Capillary Refill, Normal Inspection, Normal Range of Motion, Non Tender, No Calf Tenderness, No Pedal Edema Neurologic/Psychiatric: Alert, Oriented x3, Normal Mood/Affect, Abnormal barista II-XII (left), Abnormal Gait, Facial Droop (left), Motor Weakness (left upper and lower extremity 4/5), Sensory Deficit (hands and feet) Skin: Normal Color, Warm/Dry Lymphatic: No Adenopathy Results/Procedures Lab Patient resulted labs reviewed. FIM Transfers Therapy Code Descriptions/Definitions Functional [place] Measure: 0=Not Assessed/NA 4=Minimal Assistance 1=Total Assistance 5=Supervision or Setup 2=Maximal Assistance 6=Modified [place] 3=Moderate Assistance 7=Complete [place] Therapy Quality Codes: 6 Independent with activity with or without an assistive device 5 Patient requires set up or clean up by helper. Patient completes activity by themselves 4 Supervision or touching assist (CGA). [place] provide cues , steadying assist 3 The helper provides less than half the effort to complete the activity 2 The helper provides more than half the effort to complete the activity 1 Dependent. The helper does all the effort to complete an activity 7 Patient refused to complete or attempt activity 9 The patient did not perform the activity before the current illness or injury 88 Not attempted due to Medical conditions or safety concerns Transfers (B, C, W/C) (FIM): 6 Scootin Rollin Roll Left to Right (QC): 6 Supine to/from Sit: 6 Sit to/from Stand: 6 Sit to Lying (QC): 6 Sit to Stand (QC): 5 Chair/Grc-wp-Meovv Xfer(QC): 5 Bed to/from Chair: 6 Car Transfer (QC): 6 Gait Training Does the Patient Walk?: Yes Gait (FIM): 6 Distance (FIM): 3=150 ft (200x3) Distance: 80', 80' Walk 10 feet (QC): 5 Walk 50 ft with 2 Turns(QC): 5 Walk 150 ft (QC): 5 Walking 10ft/uneven surface-QC: 5 Gait Level of Assist: 6 Gait Persons Needed: 0 Gait Assistive Device: FWW Wheelchair Training Does the Pt Use a Wheelchair?: No Stair Training Stair Training: Handrails/: 2 handrails Stairs (FIM): 2 #of Steps: 4 1 Step (curb) (QC): 4 4 Steps (QC): 4 12 Steps (QC): 9 Stairs: Pattern: Step to Level of Assist: 4 Mental Status/Objective Comprehension: 6 Expression: 6 Social Interaction: 7 Problem Solvin Memory: 5 ADL-Treatment Feedin (Pt reports feeding self, managing containers, and cutting food without assist.) Eating (QC): 6 Groomin Oral Hygiene (QC): 5 Bathin Shower/Bathe Self (QC): 4 Upper Extremity Dressin Upper Body Dressing (QC): 4 Lower Extremity Dressin Lower Body Dressing (QC): 4 On/Off Footwear (QC): 4 Toiletin Toileting Hygiene (QC): 6 Toilet/Commode Transfer: 5 Toilet Transfer (QC): 4 Shower: 5 Assessment/Plan Assessment and Plan Assess & Plan/Chief Complaint Assessment: CVA w/residual left facial droop and left upper and lower extremity weakness declined tPA DM poorly controlled 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 at [place] [id number] HTN HLP CRI Insomnia GERD Gastroparesis OP Neuropathy Plan: IRF protocol Accuchecks SSI Monitor closely DC Sunday in time to go to Endo appt Sunday (1) CVA (cerebral vascular accident) (2) Insomnia (3) Intravenous tissue plasminogen activator (tPA) declined by parent (4) Facial droop as late effect of cerebrovascular accident (CVA) (5) Left hemiparesis (6) Gastroparesis (7) Hypertension (8) GERD (gastroesophageal reflux disease) (9) Renal insufficiency (10) Neuropathy (11) Hyperlipemia (12) CAD (coronary artery disease) (13) Osteoporosis (14) Diabetes mellitus (15) Slurred speech (16) Constipation JAG KIRKLAND DO Aug 30, 2018 09:11
--- NOTE | 2018-08-30 10:54 | Occupational Ther Daily Note ---
OT Current Status-Daily Note Subjective Pt sitting in chair, agrees to treatment. Pt states she will be discharging Sunday and will be staying with her daughter. No c/o pain at this time. Mental Status/Objective Therapy Code Descriptions/Definitions Functional [place] Measure: 0=Not Assessed/NA 4=Minimal Assistance 1=Total Assistance 5=Supervision or Setup 2=Maximal Assistance 6=Modified [place] 3=Moderate Assistance 7=Complete [place] ADL-Treatment Pt sit to stand with modified independence. Gait to restroom with FWW. Transfer to walk in shower with modified independence using grab bar for safety. Bathing completed using hand held shower. Pt able to wash/dry all areas with modified independence. Don pullover shirt with modified independence. Pt able to thread bilateral LE into Depends and pants without assist. Stood with good balance using FWW during pant hike. Don shoes and socks with modified independence. Pt stood at sink to comb hair and complete oral care with modified independence. Therapy Code Descriptions/Definitions Functional [place] Measure: 0=Not Assessed/NA 4=Minimal Assistance 1=Total Assistance 5=Supervision or Setup 2=Maximal Assistance 6=Modified [place] 3=Moderate Assistance 7=Complete [place] Therapy Quality Codes: 6 Independent with activity with or without an assistive device 5 Patient requires set up or clean up by helper. Patient completes activity by themselves 4 Supervision or touching assist (CGA). [place] provide cues , steadying as sist 3 The helper provides less than half the effort to complete the activity 2 The helper provides more than half the effort to complete the activity 1 Dependent. The helper does all the effort to complete an activity 7 Patient refused to complete or attempt activity 9 The patient did not perform the activity before the current illness or injury 88 Not attempted due to Medical conditions or safety concerns Eating (FIM): 6 (pt has a partial) Eating (QC): 6 Grooming (FIM): 6 Oral Hygiene (QC): 6 Bathing (FIM): 6 Shower/Bathe Self (QC): 6 Upper Body (FIM): 6 Upper Body Dressing (QC): 6 Lower Body Dressing (FIM): 6 Lower Body Dressing (QC): 6 On/Off Footwear (QC): 6 Toileting (FIM): 6 (Pt reports completing toileting hygiene and clothing management without assistance.) Toileting Hygiene (QC): 6 Toilet/Commode Transfer (FIM): 6 Toilet Transfer (QC): 6 Shower Transfer(FIM): 6 Other Treatment Gait to therapy gym with FWW, no LOB noted. Pt completed grooved pegboard task with left hand to increase fine motor coordination. Putty activity with left hand to increase strength and manipulation skills. Pt able to remove small beads from moderate resistance putty without difficulty. Fine motor beading task with bilateral hands to increase bilateral fine motor coordination. Pt returned to room, sitting in chair with needs met after session. OT Short Term Goals Short Term Goals 1=Demonstrate adherence to instructed precautions during ADL tasks. 2=Patient will verbalize/demonstrate understanding of assistive devices/modifications for ADL. 3=Patient will improve strength/tolerance for activity to enable patient to perform ADL's. OT Longterm Goals Longterm Goals Time Frame: Sep 17, 2018 Eating (FIM): 6 (met 08/30/18) Eating (QC): 6 (6-MET) Groomin (met 08/30/18) Oral Hygiene (QC): 6 (6-MET) Bathing(FIM): 6 (met 08/30/18) Shower/Bathe Self (QC): 6 (6-MET) Upper Body Dressing(FIM): 6 (met 08/30/18) Upper Body Dressing (QC): 6 (6-MET) Lower Body Dressing(FIM): 6 (met 08/30/18) Lower Body Dressing (QC): 6 (6-MET) On/Off Footwear (QC): 6 (6-MET) Toileting(FIM): 6 (met 08/30/18) Toileting Hygiene (QC): 6 (6-MET) Toilet/Commode Transfer(FIM): 6 (met 08/30/18) Toilet/Commode Transfer (QC): 6 (6-MET) Shower Transfer(FIM): 6 (met 08/30/18) Additional Goals: 1-Demonstrate ADL Tasks, 2-Verbalize Understanding, 3- ImproveStrength/Ruthie 1=Demonstrate adherence to instructed precautions during ADL tasks. 2=Patient will verbalize/demonstrate understanding of assistive devices /modifications for ADL. 3=Patient will improve strength/tolerance for activity to enable patient to perform ADL's. OT Education/Plan Discharge Recommendations Plan/Recommendations: Continue POC Treatment Plan/Plan of Care Patient would benefit from OT for education, treatment and training to promote independence in ADL's, mobility, safety and/or upper extremity function for ADL's. Plan of Care: ADL Retraining, Functional Mobility, Group Exercise/Act as Ind, UE Funct Exercise/Act, UE Neuromus Re-Ed/Coord Treatment Duration: Sep 17, 2018 Frequency: At least 5 of 7 days/Wk (IRF) Estimated Hrs Per Day: 1.5 hours per day Agreement: Yes Rehab Potential: Good Time/GCodes Start Time: 09:15 Stop Time: 10:30 Total Time Billed (hr/min): 75 Billed Treatment Time 1 visit, ADLx3(45minutes), FA(30minutes) ADAMARIS DE LEÓN OT Aug 30, 2018 10:54
[2018-08-30] MEDS ORDERED: FENO67CA PO (12:10)
[2018-08-30] MEDS ORDERED: Zolpidem Tartrate PO (12:10)
--- NOTE | 2018-08-30 12:12 | D/C HH Face to Face Order ---
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 Goals for Patient: Return to independent living Patient Data-Allergies,Ht & Wt Patient Allergies: Coded Allergies: celecoxib (Unverified Allergy, Unknown, 03/08/15) levofloxacin (Verified Allergy, Unknown, 03/08/15) isosorbide (Verified Adverse Reaction, Unknown, severe hypotension, 03/08/15) Height (Feet): 5 Height (Inches): 6.00 Weight (Pounds): 219 Weight (Ounces): 8.0 Home Health Need/Face to Face Date of Face to Face: Aug 30, 2018 Clinical Findings: Generalized weakness and fatigue, Unsteady gait I have seen Pt xukw-cu-hopi: Yes Discharged To: Home Diagnosis/Conditions: 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 Pt req the following assistanc: Walker Home Health Nursing Orders Home Health Services Order: Nursing Services, [employer]iodies[employer] Division Manager-Evaluate & Treat, Physical Therapy-Evaluate & Treat [facility] certify that this patient is under my care and that I, a nurse practitioner or a physician; a health care assistant working with me, had a face to face encounter that - meets the physician face to face encounter requirements with this patient as dated. JAG KIRKLAND DO Aug 30, 2018 12:12
--- NOTE | 2018-08-30 14:14 | Physical Therapy Daily Note ---
PT Daily Note-Current Subjective Pt. agrees to Rx. States she feels ready. Pain Location: No Pain Reported Mental Status Patient Orientation: Normal For Age Transfers Therapy Code Descriptions/Definitions Functional [place] Measure: 0=Not Assessed/NA 4=Minimal Assistance 1=Total Assistance 5=Supervision or Setup 2=Maximal Assistance 6=Modified [place] 3=Moderate Assistance 7=Complete [place] Therapy Quality Codes: 6 Independent with activity with or without an assistive device 5 Patient requires set up or clean up by helper. Patient completes activity by themselves 4 Supervision or touching assist (CGA). [place] provide cues , steadying assist 3 The helper provides less than half the effort to complete the activity 2 The helper provides more than half the effort to complete the activity 1 Dependent. The helper does all the effort to complete an activity 7 Patient refused to complete or attempt activity 9 The patient did not perform the activity before the current illness or injury 88 Not attempted due to Medical conditions or safety concerns Transfers (B, C, W/C) (FIM): 6 Scootin Rollin Roll Left to Right (QC): 6 Supine to/from Sit: 6 Sit to/from Stand: 6 Sit to Lying (QC): 6 Sit to Stand (QC): 6 Chair/Wfo-rt-Sqleq Xfer(QC): 6 Bed to/from Chair: 6 Car Transfer (QC): 6 Weight Bearing Right Lower Extremity: Right Full Weight Bearing Left Lower Extremity: Left Full Weight Bearing Gait Training Does the Patient Walk?: Yes Gait (FIM): 6 Distance (FIM): 3=150 ft (250x2) Walk 10 feet (QC): 6 Walk 50 ft with 2 Turns(QC): 6 Walk 150 ft (QC): 6 Walking 10ft/uneven surface-QC: 6 Gait Level of Assist: 6 Gait Persons Needed: 6 Gait Assistive Device: FWW Stair Training Stair Training: Handrails/: 2 handrails Stairs (FIM): 2 #of Steps: 4 1 Step (curb) (QC): 4 4 Steps (QC): 4 Stairs: Pattern: Step to Level of Assist: 4 needs CGA , states she feels fearful of steps and heights Balance Special Test Comments unsafe to trial Exercises Seated Therapy Exercises: Ankle pumps, Sit to stand, Long arc quads, Hip flexion, Hip abd/add Seated Reps: 12 Assessment Current Status: Good Progress up ad lisbeth for gait , demonstrates safe use of FWW PT Manager Environmental Affairs Goals Fdc Goals PT Fdc Goals Time Frame: Sep 21, 2018 Transfers (B,C,W/C) (FIM): 6 Sit to Lying (QC): 6 Lying-Sitting on Side/Bed(QC): 6 Sit to Stand (QC): 6 Rollin Roll Left to Right (QC): 6 Chair/Rmm-gv-Pqqlz Xfer(QC): 6 Car Transfer (QC): 6 Does the Patient Walk: Yes Gait (FIM): 6 Gait distance (FIM): 3=150 ft Distance: 200' Walk 10 feet (QC): 6 Walk 10ft-Uneven Surface(QC): 6 Walk 50ft with 2 Turns (QC): 6 Walk 150 ft (QC): 6 Gait Level of Assist: 6 Gait Assistive Device: FWW Stairs (FIM): 2 # of Steps: 4 1 Step (curb) (QC): 5 4 Steps (QC): 5 12 Steps (QC): 9 Stairs Level Of Assist: 5 Picking up an Object (QC): 5 PT Plan Treatment/Plan Treatment Plan: Continue Plan of Care Treatment Plan: Bed Mobility, Concurrent Therapy, Education, Functional Activity Ruthie, Functional Strength, Group Therapy, Gait, Safety, Therapeutic Exercise, Transfers Treatment Duration: Sep 21, 2018 Frequency: At least 5 of 7 days/Wk (IRF) Estimated Hrs Per Day: 1.5 hours per day Patient and/or Family Agrees t: Yes Safety Risks/Education Patient Education: Gait Training, Transfer Techniques, Steps, Correct Positioning, Disease Process, Safety Issues Teaching Recipient: Patient Teaching Methods: Demonstration, Discussion Response to Teaching: Verbalize Understanding, Return Demonstration, Reinforcement Needed Time/GCodes Time In: 1345 Time Out: 1405 Total Billed Treatment Time: 20 Total Billed Treatment 1,FA20 G Codes Necessary: SEYMOUR Carrillo CODING MACHINE OPERATOR Aug 30, 2018 14:14
--- NOTE | 2018-08-30 14:34 | NUR ---
As patient was advanced to up ad lisbeth. in room today and is MOD I with all therapy activities, team has recommended patient proceed with discharge on Sunday, 09/01 rather than Sunday, 09/02 as she is scheduled to attend and lever tender appointment in [place] at 1040a on 09/02. Patient is eager to discharge to daughter's home and is agreeable to this plan. GAME PROTECTOR updated [place] [facility] [employer] of modified discharge date. Patient expresses no further concerns or questions regarding discharge GAME PROTECTOR reviewed IMM, patient provided signature. Please see discharge summary for further information.
--- NOTE | 2018-08-30 15:35 | Speech Therapy Daily Note ---
Speech Daily Progress Note Subjective Date Seen by Provider: Aug 30, 2018 Time Seen by Provider: 00:30 The patient was resting in her recliner when I entered her room. She participated well with skilled ST. Objective The patient completed a series of memory tasks related to her daily needs with 90% accuracy given minimal cues. Assessment Assessment Current Status: Good Progress Treatment Plan Continue Plan of Care Communication Comprehension: 7 Expression: 7 Social Cognition Social Interaction: 7 Problem Solvin Memory: 6 Speech Short Term Goals Short Term Goals Short Term Goals 1) The patient will complete memory tasks related to her daily needs at 90% or greater independently. 2) The patient will complete problem solving tasks related to her daily needs at 90% or greater independently. 3) The patient will complete recall of new information related to her daily needs at 90% or greater independently. Speech Tank Farm Attendant Goals Skilled Nursing Goals The patient will increase cognitive skills for safety and independence. Speech-Plan Patient/Family Goals Patient/Family Goals: The patient will be returning home to her daughter's house over the weekend. Treatment Plan Speech Therapy Treatment Plan: Discontinue ST, Goals Met The patient has made good progress as a result of skilled ST services. Treatment Duration: Sep 01, 2018 Frequency: 5 times per week Estimated Hrs Per Day: .5 hour per day Rehab Potential: Good Barriers to Learning: New onset CVA with memory deficit Pt/Family Agrees to Plan: Yes Safety Risks/Education Teaching Recipient: Patient Teaching Methods: Discussion Response to Teaching: Verbalize Understanding Education Topics Provided: Continued safety upon her return home. Time Speech Therapy Time In: 13:00 Speech Therapy Time Out: 13:30 Total Billed Time: 30 Billed Treatment Time 1, NESS Coon Aug 30, 2018 15:35
[2018-08-30 16:01] VITALS: BP 142/91
[2018-08-30] MEDS: FUROSEMIDE 20 MG (LASIX) TAB PO SCH (17:32)
[2018-08-30] MEDS: ATORVASTATIN 80 MG (LIPITOR) TABLET PO SCH (21:10)
[2018-08-30] MEDS: FENOFIBRATE, MICRO 67 MG (LOFIBRA) CAPSULE PO SCH (21:10)
[2018-08-30] MEDS: ZOLPIDEM 5 MG (AMBIEN) TAB PO PRN (22:22)
[2018-08-31 05:27] VITALS: BP 123/79
--- NOTE | 2018-08-31 07:12 | Occupational Ther Daily Note ---
OT Current Status-Daily Note Subjective Pt sleeping in bed, woke easily to name. Pt agrees to therapy. No c/o pain. Pt to discharge to tomorrow. Mental Status/Objective Patient Orientation: Person, Place, Time, Situation Therapy Code Descriptions/Definitions Functional [place] Measure: 0=Not Assessed/NA 4=Minimal Assistance 1=Total Assistance 5=Supervision or Setup 2=Maximal Assistance 6=Modified [place] 3=Moderate Assistance 7=Complete [place] ADL-Treatment Pt declined shower today. Pt agrees to grooming and sponge bath. Pt retrieved clothing by self using FWW. Then ambulated to bathroom to complete grooming and sponge bath at sink, mod I using FWW. Pt then ambulated to chair and dressed self. Pt set own self up to eat meal and uses regular utensils. Mod I for toileting and toilet transfer. Therapy Code Descriptions/Definitions Functional [place] Measure: 0=Not Assessed/NA 4=Minimal Assistance 1=Total Assistance 5=Supervision or Setup 2=Maximal Assistance 6=Modified [place] 3=Moderate Assistance 7=Complete [place] Therapy Quality Codes: 6 Independent with activity with or without an assistive device 5 Patient requires set up or clean up by helper. Patient completes activity by themselves 4 Supervision or touching assist (CGA). [place] provide cues , steadying assist 3 The helper provides less than half the effort to complete the activity 2 The helper provides more than half the effort to complete the activity 1 Dependent. The helper does all the effort to complete an activity 7 Patient refused to complete or attempt activity 9 The patient did not perform the activity before the current illness or injury 88 Not attempted due to Medical conditions or safety concerns Other Treatment Pt ambulated to therapy gym using FWW, mod I. Arm bike 15 min duration with 15 mukherjee resistance without breaks to increase strength and activity tolerance for daily functional tasks. After therapy, pt sitting in recliner with call light/phone in reach. All needs met in room. OT Short Term Goals Short Term Goals 1=Demonstrate adherence to instructed precautions during ADL tasks. 2=Patient will verbalize/demonstrate understanding of assistive devices/modifications for ADL. 3=Patient will improve strength/tolerance for activity to enable patient to perform ADL's. OT Biometrics Technician Goals Biometrics Technician Goals Time Frame: Sep 17, 2018 Eating (FIM): 6 (met 08/30/18) Eating (QC): 6 (6-MET) Groomin (met 08/30/18) Oral Hygiene (QC): 6 (6-MET) Bathing(FIM): 6 (met 08/30/18) Shower/Bathe Self (QC): 6 (6-MET) Upper Body Dressing(FIM): 6 (met 08/30/18) Upper Body Dressing (QC): 6 (6-MET) Lower Body Dressing(FIM): 6 (met 08/30/18) Lower Body Dressing (QC): 6 (6-MET) On/Off Footwear (QC): 6 (6-MET) Toileting(FIM): 6 (met 08/30/18) Toileting Hygiene (QC): 6 (6-MET) Toilet/Commode Transfer(FIM): 6 (met 08/30/18) Toilet/Commode Transfer (QC): 6 (6-MET) Shower Transfer(FIM): 6 (met 08/30/18) Additional Goals: 1-Demonstrate ADL Tasks, 2-Verbalize Understanding, 3- ImproveStrength/Ruthie 1=Demonstrate adherence to instructed precautions during ADL tasks. 2=Patient will verbalize/demonstrate understanding of assistive devices/modifications for ADL. 3=Patient will improve strength/tolerance for activity to enable patient to perform ADL's. OT Education/Plan Problem List/Assessment Assessment: Decreased UE Strength, Impaired Self-Care Skills Discharge Recommendations Plan/Recommendations: Continue POC Treatment Plan/Plan of Care Patient would benefit from OT for education, treatment and training to promote independence in ADL's, mobility, safety and/or upper extremity function for ADL's. Plan of Care: ADL Retraining, Functional Mobility, Group Exercise/Act as Ind, UE Funct Exercise/Act, UE Neuromus Re-Ed/Coord Treatment Duration: Sep 17, 2018 Frequency: At least 5 of 7 days/Wk (IRF) Estimated Hrs Per Day: 1.5 hours per day Agreement: Yes Rehab Potential: Good Time/GCodes Start Time: 07:00 Stop Time: 08:30 Total Time Billed (hr/min): 90 Billed Treatment Time 1 visit-ADL 5 (75 min) EX 1 (15 min) SARABJIT SANDOVAL Aug 31, 2018 07:12
[2018-08-31] MEDS: DOCUSATE SODIUM 100 MG (COLACE) CAP PO SCH ×2 (09:00→21:31)
[2018-08-31] MEDS: LOSARTAN 50 MG (COZAAR) TAB PO SCH (09:30)
[2018-08-31] MEDS: VITAMIN D3 1,000 UNITS (CHOLECALCIFEROL) TABLET PO SCH (09:30)
[2018-08-31] MEDS: ALLOPURINOL 300 MG (ZYLOPRIM) TAB PO SCH (09:30)
[2018-08-31] MEDS: CLOPIDOGREL 75 MG (PLAVIX) TABLET PO SCH (09:31)
[2018-08-31] MEDS: SENNA W/DOCUSATE (SENOKOT S) TABLET PO SCH ×2 (09:31→21:30)
[2018-08-31] MEDS: RANOLAZINE ER 500 MG TAB (RANEXA) PO SCH ×2 (09:31→21:30)
[2018-08-31] MEDS: ATENOLOL 25 MG (TENORMIN) TAB PO SCH ×2 (09:31→21:33)
[2018-08-31] MEDS: ASPIRIN E.C. 81 MG (ECOTRIN) TAB PO SCH (09:31)
[2018-08-31] MEDS: inSUlin (REGULAR) HUMAN 1 UNIT/0.01 ML (CHARGE PER UNIT) SC SCH ×3 (09:33→21:31)
[2018-08-31] MEDS: inSUlin NPH (NovoLIN N) 1 UNIT/0.01 ML (CHARGE PER UNIT) SQ SCH ×2 (09:34→21:31)
[2018-08-31] MEDS: ACETAMINOPHEN 500 MG TAB (TYLENOL) PO PRN (11:29)
--- NOTE | 2018-08-31 12:44 | PM&R Progress Note ---
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 She was assessed to have a stroke given the option of given TPA but she declined. She reports that she has been disabled for 5 years due to severe neuropathy upper and lower extremities due to diabetes mellitus of which she has not been the best in controlling on insulin. She also had a heart attack in 2015 and cardiology performed cardiac catheterization showing multivessel disease sent over to [facility] and from there they sent her to [facility] considering the very small coronary vessels that could not have any intervention in addition the lower part of her heart was unable to be managed with bypass surgery so she has inoperable CAD and was not interested in proceeding on with heart transplant as presented several years ago. Her hemoglobin A1c is 10 and she overall has difficulty walking with a walker because her left hand keeps on slipping off the walker. She will need a platform on the left side. Overall she had no significant decompensation during the hospital course of [facility] and has arrived in inpatient rehab to recover prior to returning home to live alone. Her family is involved in her care. PLOF was independent with ambulation and ADL's. Subjective/Events-last exam Patient doing well Bowels are moving per her routine schedule Discharge is planned for tomorrow and she feels very confident No falls reported Ambulating well with a walker Has no complaints at this current time No pain Reviewed Accu-Cheks Conferred with RN Reviewed therapy notes Review of Systems Neurological: Incoordination Objective Exam Vital Signs Vital Signs Date Time Temp Pulse Resp B/P (MAP) Pulse Ox O2 Delivery O2 Flow Rate FiO2 08/31/18 09:00 Room Air 08/31/18 05:27 97.8 71 16 123/79 (94) 97 Capillary Refill : Less Than 3 Seconds General Appearance: No Apparent Distress, WD/WN, Chronically ill HEENT: PERRL/EOMI, TMs Normal, Normal ENT Inspection, Pharynx Normal, Moist Mucous Membranes Neck: Full Range of Motion, Normal Inspection, Non Tender, Supple Respiratory: Chest Non Tender, Lungs Clear, Normal Breath Sounds, No Accessory Muscle Use, No Respiratory Distress Cardiovascular: Regular Rate, Rhythm, No Edema, No Gallop, No JVD, No Murmur Gastrointestinal: Normal Bowel Sounds, No Organomegaly, No Pulsatile Mass, Non Tender, Soft Back: Normal Inspection, No CVA Tenderness, No Vertebral Tenderness Extremity: Normal Capillary Refill, Normal Inspection, Normal Range of Motion, Non Tender, No Calf Tenderness, No Pedal Edema Neurologic/Psychiatric: Alert, Oriented x3, Normal Mood/Affect, Abnormal preparation operator II-XII (left), Abnormal Gait, Facial Droop (left), Motor Weakness (left upper and lower extremity 4/5), Sensory Deficit (hands and feet) Skin: Normal Color, Warm/Dry Lymphatic: No Adenopathy Results/Procedures Lab Patient resulted labs reviewed. FIM Transfers Therapy Code Descriptions/Definitions Functional [place] Measure: 0=Not Assessed/NA 4=Minimal Assistance 1=Total Assistance 5=Supervision or Setup 2=Maximal Assistance 6=Modified [place] 3=Moderate Assistance 7=Complete [place] Therapy Quality Codes: 6 Independent with activity with or without an assistive device 5 Patient requires set up or clean up by helper. Patient completes activity by themselves 4 Supervision or touching assist (CGA). [place] provide cues , steadying assist 3 The helper provides less than half the effort to complete the activity 2 The helper provides more than half the effort to complete the activity 1 Dependent. The helper does all the effort to complete an activity 7 Patient refused to complete or attempt activity 9 The patient did not perform the activity before the current illness or injury 88 Not attempted due to Medical conditions or safety concerns Transfers (B, C, W/C) (FIM): 6 Scootin Rollin Roll Left to Right (QC): 6 Supine to/from Sit: 6 Sit to/from Stand: 6 Sit to Lying (QC): 6 Sit to Stand (QC): 6 Chair/Jnu-jg-Yporb Xfer(QC): 6 Bed to/from Chair: 6 Car Transfer (QC): 6 Gait Training Does the Patient Walk?: Yes Gait (FIM): 6 Distance (FIM): 3=150 ft (250x2) Distance: 80', 80' Walk 10 feet (QC): 6 Walk 50 ft with 2 Turns(QC): 6 Walk 150 ft (QC): 6 Walking 10ft/uneven surface-QC: 6 Gait Level of Assist: 6 Gait Persons Needed: 6 Gait Assistive Device: FWW Wheelchair Training Does the Pt Use a Wheelchair?: No Stair Training Stair Training: Handrails/: 2 handrails Stairs (FIM): 2 #of Steps: 4 1 Step (curb) (QC): 4 4 Steps (QC): 4 12 Steps (QC): 9 Stairs: Pattern: Step to Level of Assist: 4 Mental Status/Objective Comprehension: 7 Expression: 7 Social Interaction: 7 Problem Solvin Memory: 6 ADL-Treatment Feedin (pt has a partial) Eating (QC): 6 Groomin Oral Hygiene (QC): 6 Bathin Shower/Bathe Self (QC): 6 Upper Extremity Dressin Upper Body Dressing (QC): 6 Lower Extremity Dressin Lower Body Dressing (QC): 6 On/Off Footwear (QC): 6 Toiletin (Pt reports completing toileting hygiene and clothing management without assistance.) Toileting Hygiene (QC): 6 Toilet/Commode Transfer: 6 Toilet Transfer (QC): 6 Shower: 6 Assessment/Plan Assessment and Plan Assess & Plan/Chief Complaint Assessment: CVA w/residual left facial droop and left upper and lower extremity weakness declined tPA DM poorly controlled 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 at [facility] 2015 HTN HLP CRI Insomnia GERD Gastroparesis OP Neuropathy Plan: IRF protocol Accuchecks SSI Monitor closely DC Sunday in time to go to Endo appt Sunday (1) CVA (cerebral vascular accident) (2) Insomnia (3) Intravenous tissue plasminogen activator (tPA) declined by parent (4) Facial droop as late effect of cerebrovascular accident (CVA) (5) Left hemiparesis (6) Gastroparesis (7) Hypertension (8) GERD (gastroesophageal reflux disease) (9) Renal insufficiency (10) Neuropathy (11) Hyperlipemia (12) CAD (coronary artery disease) (13) Osteoporosis (14) Diabetes mellitus (15) Slurred speech (16) Constipation JAG KIRKLAND DO Aug 31, 2018 12:44
--- NOTE | 2018-08-31 14:13 | Physical Therapy Daily Note ---
PT Daily Note-Current Subjective Pt states her lower back is hurting her today, not sure why. Requested and received pain med from nursing during session. Agreeable to PT session. Pt states she is going to daughter's home tomorrow to stay for a couple of weeks. States she feels her biggest issue right now is having to walk slowly and catches her feet on each other at times making her feel off balance Pain Numeric Pain Scale: 4 Comment: lower back, decreased pain by end of tx session Appearance Upon arrival, pt sitting up in recliner awake and alert. At end of session, pt in bathroom with call light within reach Mental Status Patient Orientation: Person, Place, Time, Eyes Open, Situation Transfers Therapy Code Descriptions/Definitions Functional Sunflower Measure: 0=Not Assessed/NA 4=Minimal Assistance 1=Total Assistance 5=Supervision or Setup 2=Maximal Assistance 6=Modified Sunflower 3=Moderate Assistance 7=Complete Sunflower Therapy Quality Codes: 6 Independent with activity with or without an assistive device 5 Patient requires set up or clean up by helper. Patient completes activity by themselves 4 Supervision or touching assist (CGA). [place] provide cues , steadying assist 3 The helper provides less than half the effort to complete the activity 2 The helper provides more than half the effort to complete the activity 1 Dependent. The helper does all the effort to complete an activity 7 Patient refused to complete or attempt activity 9 The patient did not perform the activity before the current illness or injury 88 Not attempted due to Medical conditions or safety concerns Transfers (B, C, W/C) (FIM): 6 Weight Bearing Right Lower Extremity: Right Full Weight Bearing Left Lower Extremity: Left Full Weight Bearing Gait Training Does the Patient Walk?: Yes Gait (FIM): 5 Distance (FIM): 3=150 ft Distance: 200, 150, 250, 175, 250 Gait Level of Assist: 5 Gait Persons Needed: 1 Gait Assistive Device: FWW good step length, steady without LOB with forward walking, occasional unsteadiness self corrected during turns, obstacle courts performed with x20 45, 90 and 180 degree turns Stair Training Stair Training: Handrails/: 2 handrails Stairs (FIM): 4 #of Steps: 12 (4 steps asending and descending, sitting rest, 8 steps ascending and descending) Stairs: Pattern: Step to Level of Assist: 4 (CGA) Exercises Standing: Braiding, Hip Abduction, Heel/toe raises, Marching (on Airex), Maze, Mini squats, Retro gait, Sit to Stand, Side steps, Step-ups, Stepping over objects, Unilateral stance Standing Reps: 20 ((+) 380^ circles, fwd gait attempting increased speed, tandem gait) NuStep Minutes: 20 NuStep Workload: 5 (Arms 9, seat 9) Treatments transfer, safety, balance, education, gait, functional mobility, activity tolerance, strength Assessment Current Status: Good Progress PT Penitentiary Goals Penitentiary Goals PT Penitentiary Goals Time Frame: Sep 21, 2018 Transfers (B,C,W/C) (FIM): 6 Sit to Lying (QC): 6 Lying-Sitting on Side/Bed(QC): 6 Sit to Stand (QC): 6 Rollin Roll Left to Right (QC): 6 Chair/Tdf-ua-Lkxpf Xfer(QC): 6 Car Transfer (QC): 6 Does the Patient Walk: Yes Gait (FIM): 6 Gait distance (FIM): 3=150 ft Distance: 200' Walk 10 feet (QC): 6 Walk 10ft-Uneven Surface(QC): 6 Walk 50ft with 2 Turns (QC): 6 Walk 150 ft (QC): 6 Gait Level of Assist: 6 Gait Assistive Device: FWW Stairs (FIM): 2 # of Steps: 4 1 Step (curb) (QC): 5 4 Steps (QC): 5 12 Steps (QC): 9 Stairs Level Of Assist: 5 Picking up an Object (QC): 5 PT Plan Treatment/Plan Treatment Plan: Continue Plan of Care Treatment Plan: Bed Mobility, Concurrent Therapy, Education, Functional Acti vity Ruthie, Functional Strength, Group Therapy, Gait, Safety, Therapeutic Exercise, Transfers per pt, discharging from hospital tomorrow Treatment Duration: Sep 21, 2018 Frequency: At least 5 of 7 days/Wk (IRF) Estimated Hrs Per Day: 1.5 hours per day Patient and/or Family Agrees t: Yes Safety Risks/Education Patient Education: Gait Training, Transfer Techniques, Steps, Safety Issues Teaching Recipient: Patient Teaching Methods: Discussion Response to Teaching: Verbalize Understanding, Return Demonstration Time/GCodes Time In: 1100 Time Out: 1230 Total Billed Treatment Time: 90 Total Billed Treatment 1 visit, GT x 3 units, FA x1 unit, Ex x2 units WICHO VILLARRE[employer] WORK[employer] HEAD Aug 31, 2018 14:13
[2018-08-31 17:27] VITALS: BP 128/79
--- NOTE | 2018-08-31 21:24 | NUR ---
Pt's accucheck was [address] Goodrich notified, new order to decrease Humulin R to 10 units SQ and Novolin N to 38.5 units SQ.
[2018-08-31] MEDS: ATORVASTATIN 80 MG (LIPITOR) TABLET PO SCH (21:30)
[2018-08-31] MEDS: FENOFIBRATE, MICRO 67 MG (LOFIBRA) CAPSULE PO SCH (21:30)
[2018-08-31] MEDS: ZOLPIDEM 5 MG (AMBIEN) TAB PO PRN (21:32)
[2018-09-01 05:37] VITALS: BP 123/74
[2018-09-01] MEDS: VITAMIN D3 1,000 UNITS (CHOLECALCIFEROL) TABLET PO SCH (09:48)
[2018-09-01] MEDS: RANOLAZINE ER 500 MG TAB (RANEXA) PO SCH (09:48)
[2018-09-01] MEDS: CLOPIDOGREL 75 MG (PLAVIX) TABLET PO SCH (09:48)
[2018-09-01] MEDS: LOSARTAN 50 MG (COZAAR) TAB PO SCH (09:48)
[2018-09-01] MEDS: ASPIRIN E.C. 81 MG (ECOTRIN) TAB PO SCH (09:48)
[2018-09-01] MEDS: ALLOPURINOL 300 MG (ZYLOPRIM) TAB PO SCH (09:49)
[2018-09-01] MEDS: ATENOLOL 25 MG (TENORMIN) TAB PO SCH (09:49)
[2018-09-01] MEDS: SENNA W/DOCUSATE (SENOKOT S) TABLET PO SCH (09:49)
[2018-09-01] MEDS: inSUlin NPH (NovoLIN N) 1 UNIT/0.01 ML (CHARGE PER UNIT) SQ SCH (09:50)
[2018-09-01] MEDS: inSUlin (REGULAR) HUMAN 1 UNIT/0.01 ML (CHARGE PER UNIT) SC SCH ×2 (09:50→13:06)
[2018-09-01] MEDS: DOCUSATE SODIUM 100 MG (COLACE) CAP PO SCH (09:55)
[2018-09-01] MEDS: ACETAMINOPHEN 325 MG TABLET PO PRN (10:06)
--- NOTE | 2018-09-01 11:40 | Discharge Summary ---
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 declined tPA DM poorly controlled 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 at [facility] 2014 HTN HLP CRI Insomnia GERD Gastroparesis OP Neuropathy Plan: IRF protocol Accuchecks SSI Monitor closely DC today in time to go to Endo appt Sunday Discharge Summary Discharge Physical Examination Allergies: Coded Allergies: celecoxib (Unverified Allergy, Unknown, 03/08/15) levofloxacin (Verified Allergy, Unknown, 03/08/15) isosorbide (Verified Adverse Reaction, Unknown, severe hypotension, 03/08/15) Vitals & I&Os Vital Signs Date Time Temp Pulse Resp B/P (MAP) Pulse Ox O2 Delivery O2 Flow Rate FiO2 09/01/18 05:37 97.3 69 16 123/74 (90) 96 Room Air General Appearance: Alert, Oriented X3, Cooperative Respiratory: Clear to Auscultation, Normal Air Movement Cardiovascular: Regular Rate Neuro: Normal Gait, Normal Speech, Strength at 5/5 X4 Ext Psych/Mental Status: Mental Status NL, Mood NL Hospital Course Was the Problem List Reviewed?: Yes Hospital course: Patient had an uneventful hospital course for 7 days in inpatient rehabilitation unit after transferring from [facility] after stroke with left facial droop and left upper and lower extremity weakness. She is maintained on all home medications including aggressive insulin regimen. Patient was monitored for any heart failure due to inoperable CAD multivessel disease and decline heart transplant process 3 years ago. She participated in all therapies as required and she had no significant decompensation during hospital stay even hypoglycemic episodes. Pain was controlled in addition to insomnia resolved with the use of Ambien periodically. Bowel function returned back to her normal with history of gastroparesis complicating normal bowel function. Overall she was able to return nearly to prior level of functioning with the use of a walker with safety precaution counseling and fall prevention she was deemed stable for discharge with her family with close follow-up in endocrinology tomorrow afternoon at [facility]. Labs (last 24 hrs) Laboratory Tests 08/26/18 18:21: Glucometer 189H 08/26/18 20:33: Glucometer 261H 08/27/18 05:26: Glucometer 83 08/27/18 05:53: White Blood Count 6.5, Red Blood Count 3.77L, Hemoglobin 12.5, Hematocrit 37, Mean Corpuscular Volume 97, Mean Corpuscular Hemoglobin 33, Mean Corpuscular Hemoglobin Concent 34, Red Cell Distribution Width 13.6, Platelet Count 108L, Mean Platelet Volume 11.5H, Neutrophils (%) (Auto) 54, Lymphocytes (%) (Auto) 34, Monocytes (%) (Auto) 10, Eosinophils (%) (Auto) 2, Basophils (%) (Auto) 0, Neutrophils # (Auto) 3.5, Lymphocytes # (Auto) 2.2, Monocytes # (Auto) 0.7, Eosinophils # (Auto) 0.1, Basophils # (Auto) 0.0 08/27/18 05:55: Sodium Level 140, Potassium Level 3.8, Chloride Level 106, Carbon Dioxide Level 25, Anion Gap 9, Blood Urea Nitrogen 17, Creatinine 1.54H, Estimat Glomerular Filtration Rate 34, BUN/Creatinine Ratio 11, Glucose Level 89, Calcium Level 10.7H, Corrected Calcium 10.9H, Total Bilirubin 0.5, Aspartate Amino Transf (AST/SGOT) 29, Alanine Aminotransferase (ALT/SGPT) 29, Alkaline Phosphatase 65, Total Protein 6.1L, Albumin 3.7 08/27/18 11:11: Glucometer 193H 08/27/18 16:16: Glucometer 283H 08/27/18 20:09: Glucometer 303H 08/28/18 05:31: Glucometer 102 08/28/18 10:54: Glucometer 286H 08/28/18 15:55: Glucometer 170H 08/28/18 20:32: Glucometer 237H 08/29/18 05:09: Glucometer 89 08/29/18 11:00: Glucometer 118H 08/29/18 16:00: Glucometer 153H 08/29/18 20:17: Glucometer 227H 08/30/18 05:25: Glucometer 79 08/30/18 11:02: Glucometer 380H 08/30/18 16:00: Glucometer 315H 08/30/18 20:27: Glucometer 215H 08/31/18 05:07: Glucometer 147H 08/31/18 10:56: Glucometer 257H 08/31/18 15:45: Glucometer 242H 08/31/18 20:43: Glucometer 159H 09/01/18 05:11: Glucometer 138H 09/01/18 11:05: Glucometer 315H Pending Labs Laboratory Tests 08/26/18 18:21: Glucometer 189 08/26/18 20:33: Glucometer 261 08/27/18 05:26: Glucometer 83 08/27/18 05:53: White Blood Count 6.5, Red Blood Count 3.77, Hemoglobin 12.5, Hematocrit 37, Mean Corpuscular Volume 97, Mean Corpuscular Hemoglobin 33, Mean Corpuscular Hemoglobin Concent 34, Red Cell Distribution Width 13.6, Platelet Count 108, Mean Platelet Volume 11.5, Neutrophils (%) (Auto) 54, Lymphocytes (%) (Auto) 34, Monocytes (%) (Auto) 10, Eosinophils (%) (Auto) 2, Basophils (%) (Auto) 0, Neutrophils # (Auto) 3.5, Lymphocytes # (Auto) 2.2, Monocytes # (Auto) 0.7, Eosinophils # (Auto) 0.1, Basophils # (Auto) 0.0 08/27/18 05:55: Sodium Level 140, Potassium Level 3.8, Chloride Level 106, Carbon Dioxide Level 25, Anion Gap 9, Blood Urea Nitrogen 17, Creatinine 1.54, Estimat Glomerular Filtration Rate 34, BUN/Creatinine Ratio 11, Glucose Level 89, Calcium Level 10.7, Corrected Calcium 10.9, Total Bilirubin 0.5, Aspartate Amino Transf (AST/SGOT) 29, Alanine Aminotransferase (ALT/SGPT) 29, Alkaline Phosphatase 65, Total Protein 6.1, Albumin 3.7 08/27/18 11:11: Glucometer 193 08/27/18 16:16: Glucometer 283 08/27/18 20:09: Glucometer 303 08/28/18 05:31: Glucometer 102 08/28/18 10:54: Glucometer 286 08/28/18 15:55: Glucometer 170 08/28/18 20:32: Glucometer 237 08/29/18 05:09: Glucometer 89 08/29/18 11:00: Glucometer 118 08/29/18 16:00: Glucometer 153 08/29/18 20:17: Glucometer 227 08/30/18 05:25: Glucometer 79 08/30/18 11:02: Glucometer 380 08/30/18 16:00: Glucometer 315 08/30/18 20:27: Glucometer 215 08/31/18 05:07: Glucometer 147 08/31/18 10:56: Glucometer 257 08/31/18 15:45: Glucometer 242 08/31/18 20:43: Glucometer 159 09/01/18 05:11: Glucometer 138 09/01/18 11:05: Glucometer 315 Discharge Home Medications: Active Scripts Active [Zolpidem Tartrate] 5 MG Tab 5 Mg PO HS PRN Fenofibrate (Fenofibrate,Micronized) 67 Mg Capsule 67 Mg PO HS Reported Alendronate Sodium 10 Mg Tablet 10 Mg PO DAILY Novolin N (Insulin NPH Human Isophane) 100 Unit/1 Ml Vial 77 Unit SQ HS Novolin N (Insulin NPH Human Isophane) 100 Unit/1 Ml Vial 66 Units SC DAILY Ranexa (Ranolazine) 1,000 Mg Tab.er.12h 1,000 Mg PO BID Colace (Docusate Sodium) 100 Mg Capsule 100 Mg PO BID Losartan Potassium 50 Mg Tablet 50 Mg PO DAILY Atenolol 25 Mg Tablet 25 Mg PO BID Novolin R (Insulin Regular, Human) 100 Unit/1 Ml Vial 20 Unit SC TID Aspirin EC (Aspirin) 81 Mg Tablet.dr 81 Mg PO DAILY Clopidogrel (Clopidogrel Bisulfate) 75 Mg Tablet 75 Mg PO DAILY Allopurinol 300 Mg Tablet 300 Mg PO DAILY Furosemide 20 Mg Tablet 20 Mg PO MOFR Atorvastatin Calcium 80 Mg Tablet 80 Mg PO HS Instructions to patient/family Please see electronic discharge instructions given to patient. Diagnosis/Problems Diagnosis/Problems (1) CVA (cerebral vascular accident) (2) Insomnia (3) Intravenous tissue plasminogen activator (tPA) declined by parent (4) Facial droop as late effect of cerebrovascular accident (CVA) (5) Left hemiparesis (6) Gastroparesis (7) Hypertension Status: Acute (8) GERD (gastroesophageal reflux disease) (9) Renal insufficiency (10) Neuropathy (11) Hyperlipemia (12) CAD (coronary artery disease) (13) Osteoporosis (14) Diabetes mellitus (15) Slurred speech (16) Constipation Clinical Quality Measures DVT/VTE Risk/Contraindication: Risk Factor Score Per Nursin RFS Level Per Nursing on Admit: 4+=Very High JAG KIRKLAND DO Sep 01, 2018 11:40
[2018-09-01 13:15] VITALS: BP 123/74
--- NOTE | 2018-09-02 08:25 | Therapy Team Discharge Summary ---
Therapy Discharge Summary Discharge Recommendations Date of Discharge Sep 01, 2018 at 13:15 Therapy D/C Recommendations: Home w/ Family Support, Occupational Therapy Home Care Occupational Therapy Decreased UE Strength, Impaired Self-Care Skills Speech-Language Pathology The patient was admitted to the ARU due to recent CVA for strengthening prior to returning home. Initially the patient presented with mild neurocognitive disorder as scored on the SLUMS. She received skilled ST for memory and problem solving abilities with focus on safety and independence. She was able to meet all goals and was discharged to home on 09/01/18. She was discharged from skilled ST at that time as well. PT [facility] Goals Mental Health Advanced Practice Nurse Goals PT Mental Health Advanced Practice Nurse Goals Time Frame: Sep 21, 2018 Transfers (B,C,W/C) (FIM): 6 Roll Left to Right (QC): 6 Sit to Lying (QC): 6 Lying-Sitting on Side/Bed(QC): 6 Sit to Stand (QC): 6 Chair/Mmi-fs-Ldlpv Xfer(QC): 6 Car Transfer (QC): 6 Does the Patient Walk: Yes Gait (FIM): 6 Gait distance (FIM): 3=150 ft Distance: 200' Walk 10 feet (QC): 6 Walk 10ft-Uneven Surface(QC): 6 Walk 50ft with 2 Turns (QC): 6 Walk 150 ft (QC): 6 Gait Level of Assist: 6 Gait Assistive Device: FWW Stairs (FIM): 2 # of Steps: 4 1 Step (curb) (QC): 5 4 Steps (QC): 5 12 Steps (QC): 9 Stairs Level Of Assist: 5 Picking up an Object (QC): 5 OT [facility] Goals Mental Health Advanced Practice Nurse Goals Time Frame: Sep 17, 2018 Eating (FIM): 6 (met 08/30/18) Eating (QC): 6 (6-MET) Oral Hygiene (QC): 6 (6-MET) Grooming(FIM): 6 (met 08/30/18) Bathing(FIM): 6 (met 08/30/18) Shower/Bathe Self (QC): 6 (6-MET) Upper Body Dressing(FIM): 6 (met 08/30/18) Upper Body Dressing (QC): 6 (6-MET) Lower Body Dressing(FIM): 6 (met 08/30/18) Lower Body Dressing (QC): 6 (6-MET) On/Off Footwear (QC): 6 (6-MET) Toileting(FIM): 6 (met 08/30/18) Toileting Hygiene (QC): 6 (6-MET) Toilet/Commode Transfer(FIM): 6 (met 08/30/18) Toilet/Commode Transfer (QC): 6 (6-MET) Shower Transfer(FIM): 6 (met 08/30/18) Additional Goals: 1-Demonstrate ADL Tasks, 2-Verbalize Understanding, 3- ImproveStrength/Ruthie 1=Demonstrate adherence to instructed precautions during ADL tasks. 2=Patient will verbalize/demonstrate understanding of assistive devices/modifications for ADL. 3=Patient will improve strength/tolerance for activity to enable patient to perform ADL's. Speech [facility] Goals Fci Goals The patient will increase cognitive skills for safety and independence. ENSS GAMBOA Sep 02, 2018 08:25
--- NOTE | 2018-09-02 15:58 | Therapy Team Discharge Summary ---
Therapy Discharge Summary Discharge Recommendations Date of Discharge Sep 01, 2018 at 13:15 Therapy D/C Recommendations: Home w/ Family Support, Occupational Therapy Home Care Physical Therapy This patient was seen on ARU post acute hospital stay due to a CVA. Prior to the CVA she was mod indep to indep with all functional mobiltiy. Upon admission to this unit, she was SBA with gait and transfers and able to go up/down 1 step with assist. Treatment has focused on functional strength, balance and safety to progress her transfers and gait. At id, she was mod indep with alll tranfers and gait and felt safe and ready for discharge home. Recommend follow up care on a [facility] or outpt basis for continued care. Will DC from ARU at this time. DC Occupational Therapy Decreased UE Strength, Impaired Self-Care Skills PT Wirer Maintenance Goals [facility] Goals PT Wirer Maintenance Goals Time Frame: Sep 21, 2018 Transfers (B,C,W/C) (FIM): 6 (met) Roll Left to Right (QC): 6 Sit to Lying (QC): 6 Lying-Sitting on Side/Bed(QC): 6 Sit to Stand (QC): 6 Chair/Ige-rt-Yjigy Xfer(QC): 6 Car Transfer (QC): 6 Does the Patient Walk: Yes Gait (FIM): 6 (met) Gait distance (FIM): 3=150 ft Distance: 200' Walk 10 feet (QC): 6 Walk 10ft-Uneven Surface(QC): 6 Walk 50ft with 2 Turns (QC): 6 Walk 150 ft (QC): 6 Gait Level of Assist: 6 Gait Assistive Device: FWW Stairs (FIM): 2 (met) # of Steps: 4 1 Step (curb) (QC): 5 4 Steps (QC): 5 12 Steps (QC): 9 Stairs Level Of Assist: 5 Picking up an Object (QC): 5 all goals met to a satisfactory level OT Wirer Maintenance Goals Wirer Maintenance Goals Time Frame: Sep 17, 2018 Eating (FIM): 6 (met 08/30/18) Eating (QC): 6 (6-MET) Oral Hygiene (QC): 6 (6-MET) Grooming(FIM): 6 (met 08/30/18) Bathing(FIM): 6 (met 08/30/18) Shower/Bathe Self (QC): 6 (6-MET) Upper Body Dressing(FIM): 6 (met 08/30/18) Upper Body Dressing (QC): 6 (6-MET) Lower Body Dressing(FIM): 6 (met 08/30/18) Lower Body Dressing (QC): 6 (6-MET) On/Off Footwear (QC): 6 (6-MET) Toileting(FIM): 6 (met 08/30/18) Toileting Hygiene (QC): 6 (6-MET) Toilet/Commode Transfer(FIM): 6 (met 08/30/18) Toilet/Commode Transfer (QC): 6 (6-MET) Shower Transfer(FIM): 6 (met 08/30/18) Additional Goals: 1-Demonstrate ADL Tasks, 2-Verbalize Understanding, 3-ImproveStrength/Ruthie 1=Demonstrate adherence to instructed precautions during ADL tasks. 2=Patient will verbalize/demonstrate understanding of assistive devices/modifications for ADL. 3=Patient will improve strength/tolerance for activity to enable patient to perform ADL's. Speech Wirer Maintenance Goals Wirer Maintenance Goals The patient will increase cognitive skills for safety and independence. SARABJIT SALGADO PT Sep 02, 2018 15:58
--- NOTE | 2018-09-03 09:57 | Therapy Team Discharge Summary ---
Therapy Discharge Summary Discharge Recommendations Date of Discharge Sep 01, 2018 at 13:15 Therapy D/C Recommendations: Home w/ Family Support, Occupational Therapy Home Care Occupational Therapy Pt admitted to ARU following acute hospitalization for CVA. On admission pt required CGA with bathing, SBA for dressing and transfers. Skilled OT intervention focused on ADL training, transfers, strengthening, and safety. Pt made good progress with therapy and by discharge is completing basic ADLs and transfers with modified independence. Pt met all OT LTG. Discharged with family support. D/c ARU OT. Decreased UE Strength, Impaired Self-Care Skills PT Aircraft Part Assembler Goals Aircraft Part Assembler Goals PT Residential Goals Time Frame: Sep 21, 2018 Transfers (B,C,W/C) (FIM): 6 (met) Roll Left to Right (QC): 6 Sit to Lying (QC): 6 Lying-Sitting on Side/Bed(QC): 6 Sit to Stand (QC): 6 Chair/Tad-my-Nrnpf Xfer(QC): 6 Car Transfer (QC): 6 Does the Patient Walk: Yes Gait (FIM): 6 (met) Gait distance (FIM): 3=150 ft Distance: 200' Walk 10 feet (QC): 6 Walk 10ft-Uneven Surface(QC): 6 Walk 50ft with 2 Turns (QC): 6 Walk 150 ft (QC): 6 Gait Level of Assist: 6 Gait Assistive Device: FWW Stairs (FIM): 2 (met) # of Steps: 4 1 Step (curb) (QC): 5 4 Steps (QC): 5 12 Steps (QC): 9 Stairs Level Of Assist: 5 Picking up an Object (QC): 5 OT Aircraft Part Assembler Goals Aircraft Part Assembler Goals Time Frame: Sep 17, 2018 Eating (FIM): 6 (met 08/30/18) Eating (QC): 6 (6-MET) Oral Hygiene (QC): 6 (6-MET) Grooming(FIM): 6 (met 08/30/18) Bathing(FIM): 6 (met 08/30/18) Shower/Bathe Self (QC): 6 (6-MET) Upper Body Dressing(FIM): 6 (met 08/30/18) Upper Body Dressing (QC): 6 (6-MET) Lower Body Dressing(FIM): 6 (met 08/30/18) Lower Body Dressing (QC): 6 (6-MET) On/Off Footwear (QC): 6 (6-MET) Toileting(FIM): 6 (met 08/30/18) Toileting Hygiene (QC): 6 (6-MET) Toilet/Commode Transfer(FIM): 6 (met 08/30/18) Toilet/Commode Transfer (QC): 6 (6-MET) Shower Transfer(FIM): 6 (met 08/30/18) Additional Goals: 1-Demonstrate ADL Tasks, 2-Verbalize Understanding, 3- ImproveStrength/Ruthie 1=Demonstrate adherence to instructed precautions during ADL tasks. 2=Patient will verbalize/demonstrate understanding of assistive devices/modifications for ADL. 3=Patient will improve strength/tolerance for activity to enable patient to perform ADL's. Speech Residential Goals Aircraft Part Assembler Goals The patient will increase cognitive skills for safety and independence. ADAMARIS DE LEÓN OT Sep 03, 2018 09:57
== END 2018-09-01 13:15 | disposition home health service (06) | DRG 57 ==
PROVIDERS: ADMIT Internal Medicine; ATTEND Internal Medicine
DX: I69.354 Hemiplegia and hemiparesis following cerebral infarction affecting left non-dominant side (principal); I69.392 Facial weakness following cerebral infarction; I69.328 Other speech and language deficits following cerebral infarction; E11.42 Type 2 diabetes mellitus with diabetic polyneuropathy; E11.43 Type 2 diabetes mellitus with diabetic autonomic (poly)neuropathy; E11.65 Type 2 diabetes mellitus with hyperglycemia; I42.9 Cardiomyopathy, unspecified; I25.10 Atherosclerotic heart disease of native coronary artery without angina pectoris; G47.30 Sleep apnea, unspecified; I12.9 Hypertensive chronic kidney disease with stage 1 through stage 4 chronic kidney disease, or unspecified chronic kidney disease; N18.9 Chronic kidney disease, unspecified; E78.5 Hyperlipidemia, unspecified; K21.9 Gastro-esophageal reflux disease without esophagitis; K59.09 Other constipation; G47.00 Insomnia, unspecified; M81.0 Age-related osteoporosis without current pathological fracture; Z79.4 Long term (current) use of insulin
CPT/HCPCS: 36415; 80053; 82962; 85025

== ENCOUNTER 2019-05-10 13:01 | Emergency (ER) | payer MEDICARE, OTHER ==
[~2019-05-10] VITALS: Ht 165 cm; Wt 100.0 kg
[~2019-05-10 13:01] MED LIST changes: +ACET-2650 PO; +ALEN10TA8 PO; +ASPI-983 PO; +CHOL10007 PO; +DOCU-143 PO; +FENO54TA PO; +FENO67CA PO; +HEPA500018 SC; -HYDR-3812 PO; +INSN1U SC; +INSN1U SQ; +INSU100V31 SC; +LOSA50TA63 PO; +MELA3TAB65 PO; +PROM12.511 PO; -PROM12.59 PO; +Zolpidem Tartrate PO; +[UNRECOGNIZED DRUG - OTHER] IV
[2019-05-10] MEDS ORDERED: LACTATED RINGERS 1,000 ML IV ONE (13:19)
[2019-05-10 13:45] LABS: BASOPHILS % (AUTO) 0 % (0-10); EOSINOPHILS % (AUTO) 1 % (0-10); HEMATOCRIT 43 % (35-52); HEMOGLOBIN 15.2 G/DL (11.5-16.0); LYMPHOCYTES # (AUTO) 1.6 X 10^3 (1.0-4.0); LYMPHOCYTES % (AUTO) 20 % (12-44); MEAN CORPUSCULAR HEMOGLOBIN 33 PG (25-34); MEAN CORPUSCULAR HGB CONC 36 G/DL (32-36); MEAN CORPUSCULAR VOLUME 94 FL (80-99); MONOCYTES # (AUTO) 0.4 X 10^3 (0.0-1.0); MONOCYTES % (AUTO) 5 % (0-12); NEUTROPHILS % (AUTO) 74 % (42-75); PLATELET COUNT 147 10^3/uL (130-400); RED CELL DISTRIBUTION WIDTH 12.8 % (10.0-14.5)
[2019-05-10 13:45] LABS: BILIRUBIN,URINE NEGATIVE (NEGATIVE); CLARITY,URINE SL CLOUDY; COLOR,URINE YELLOW; GLUCOSE, URINE (UA) 3+ (NEGATIVE); KETONES,URINE NEGATIVE (NEGATIVE); LEUKOCYTE ESTERASE ,URINE TRACE (NEGATIVE); NITRITE,URINE NEGATIVE (NEGATIVE); PROTEIN,URINE 2+ (NEGATIVE)
[2019-05-10 13:46] LABS: BACTERIA,URINE MODERATE /HPF; SQUAMOUS EPITHELIAL CELL,UR 0-2 /HPF
[2019-05-10] MEDS ORDERED: PROMETHAZINE INJ 25 MG/ML (PHENERGAN) AMP IVP STA (13:56)
[2019-05-10] MEDS ORDERED: inSUlin (REGULAR) HUMAN 1 UNIT/0.01 ML (CHARGE PER UNIT) IV STA (13:56)
[2019-05-10 14:03] LABS: ALBUMIN 4.5 GM/DL (3.2-4.5); BILIRUBIN,TOTAL 1.1 MG/DL (0.1-1.0); CALCIUM 10.5 MG/DL (8.5-10.1); CREATININE SERUM 1.91 MG/DL (0.60-1.30); MAGNESIUM 1.9 MG/DL (1.6-2.4); PHOSPHORUS 2.7 MG/DL (2.3-4.7); POTASSIUM 4.6 MMOL/L (3.6-5.0); TOTAL PROTEIN 7.3 GM/DL (6.4-8.2)
--- NOTE | 2019-05-10 14:03 | ED General ---
General Chief Complaint: Glucose Problems Stated Complaint: WEAKNESS / HIGH BLOOD SUGAR 412 Nursing Triage Note: THE OT IS ASSISTED TO THE ROOM BY WHEELCHAIR. NO DISTRESS IS SEEN ON ARRIVAL. THE PT C/O POOR WATER INTAKE AND HIGH BLOOD SUGAR. Nursing Sepsis Screen: No Definite Risk Source of Information: Patient Exam Limitations: No Limitations History of Present Illness Date Seen by Provider: May 10, 2019 Time Seen by Provider: 13:45 Initial Comments Here with daughter. Both report that she's had uncontrolled blood sugars and nausea and vomiting over the last 2-1/2 days. Has history of stroke that affects the left side with residual weakness of the arm and leg including foot drop. She has not had good control of her blood sugars recently although did have much better control prior to that since her stroke. She has no done any insulin due to concerns related to the vomiting. Denies dysuria or diarrhea. Denies fever or chills. Timing/Duration: 2-3 Days Severity: Moderate Associated Systoms: No Chest Pain, No Cough, No Fever/Chills; Nausea/Vomiting; No Shortness of Air; Weakness Allergies and Home Medications Allergies Coded Allergies: celecoxib (Unverified Allergy, Unknown, 03/08/15) levofloxacin (Verified Allergy, Unknown, 03/08/15) isosorbide (Verified Adverse Reaction, Unknown, severe hypotension, 03/08/15) Home Medications Alendronate Sodium 10 Mg Tablet, 10 MG PO DAILY, (Reported) Allopurinol 300 Mg Tablet, 300 MG PO DAILY, (Reported) Aspirin 81 Mg Tablet.dr, 81 MG PO DAILY, (Reported) Atenolol 25 Mg Tablet, 25 MG PO BID, (Reported) Atorvastatin Calcium 80 Mg Tablet, 80 MG PO HS, (Reported) Clopidogrel Bisulfate 75 Mg Tablet, 75 MG PO DAILY, (Reported) Docusate Sodium 100 Mg Capsule, 100 MG PO BID, (Reported) Fenofibrate,Micronized 67 Mg Capsule, 67 MG PO HS Prescribed by: JAG KIRKLAND on 08/30/18 1210 Furosemide 20 Mg Tablet, 20 MG PO MoFr, (Reported) Insulin NPH Human Isophane 100 Unit/1 Ml Vial, 66 UNITS SC DAILY, (Reported) Insulin NPH Human Isophane 100 Unit/1 Ml Vial, 77 UNIT SQ HS, (Reported) Insulin Regular, Human 100 Unit/1 Ml Vial, 20 UNIT SC TID, (Reported) Losartan Potassium 50 Mg Tablet, 50 MG PO DAILY, (Reported) Ranolazine 1,000 Mg Tab.er.12h, 1,000 MG PO BID, (Reported) [Zolpidem Tartrate] 5 MG TAB, 5 MG PO HS PRN for INSOMNIA Prescribed by: JAG KIRKLAND on 08/30/18 1210 Patient Home Medication List Home Medication List Reviewed: Yes Review of Systems Review of Systems Constitutional: see HPI EENTM: no symptoms reported Respiratory: no symptoms reported Cardiovascular: no symptoms reported Gastrointestinal: No constipation, No nausea, No vomiting Genitourinary: decreased output; No pain Musculoskeletal: no symptoms reported Skin: no symptoms reported Psychiatric/Neurological: Denies Headache; Weakness All Other Systems Reviewed Negative Unless Noted: Yes Past [id number]-Qcnedq-Dubajb Hx Past Med/Social Hx: Reviewed Nursing Past Med/Soc Hx Patient Social History Alcohol Use: Denies Use Recreational Drug Use: No Smoking Status: Never a Smoker 2nd Hand Smoke Exposure: No Recent Foreign Travel: No Contact w/Someone Who Travel: No Recent Infectious Disease Expo: No Recent Hopitalizations: No Immunizations Up To Date Tetanus Booster (TDap): Less than 5yrs Date of Pneumonia Vaccine: Jan 17, 2013 Date of Influenza Vaccine: Dec 03, 2012 Seasonal Allergies Seasonal Allergies: No Past Medical History Surgeries: Yes (HYSTERECTOMY 1997, LAP. PRIETO 5-6 YRS. AGO, T&A-49 YRS. 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) Neuropathy, Stroke, Vertigo Reproductive Disorders: No Female Reproductive Disorders: Denies Sexually Transmitted Disease: No HIV/AIDS: No Genitourinary: Yes Kidney Stones, Renal Failure Gastrointestinal: Yes (constipation) Gastroesophageal Reflux, Chronic Constipation Musculoskeletal: Yes (arthritis) Arthritis, Back Injury Endocrine: Yes Diabetes, Insulin dep Chronic Ear Infection Hearing Impairment: Hard of Hearing Cancer: No Psychosocial: No Integumentary: Yes (healing cyst removal) Blood Disorders: No Adverse Reaction/Blood Tranf: No Family Medical History Reviewed Nursing Family Hx Cancer (lung and ovarian) 09 BROTHER, Onset:30's - 40 09 SISTER, Onset:60 years & older Congenital heart disease (mitral valve prolapse) 09 SISTER 09 SISTER Congestive heart failure 03 FATHER, Onset:60 years & older 03 MOTHER, Onset:50's - 60 09 SISTER, Onset:60 years & older Family history: Arthritis 03 MOTHER, Onset:60 years & older Family history: Diabetes mellitus 03 FATHER, Onset:60 years & older 09 SISTER, Onset:50's - 60 Family history: Gastrointestinal disease 03 FATHER, Onset:50's - 60 Hereditary disease (HTN) 09 SISTER, Onset:40's - 50 History of - disorder (Urinary problems) 09 SISTER, Onset:60 years & older 09 SISTER, Onset:20's - 25 History of - respiratory disease (asthma) 09 SISTER Hypercholesterolemia 09 SISTER, Onset:50's - 60 Psychotic disorder (anxiety) 09 SISTER, Onset:30's - 40 Heart Disease Physical Exam Vital Signs Vital Signs - First Documented 05/10/19 13:09 Temp 36.9 Pulse 82 Resp 18 B/P (MAP) 165/100 (121) Capillary Refill : Less Than 3 Seconds Height, Weight, BMI Height: 5'6.00" Weight: 220lbs. 10.0oz. [id number]; 36.00 BMI Method:Estimated General Appearance: No Apparent Distress, WD/WN HEENT: PERRL/EOMI, Other (Mucous membranes dry) Neck: Non Tender, Supple Respiratory: Lungs Clear, Normal Breath Sounds Cardiovascular: Regular Rate, Rhythm, No Murmur Gastrointestinal: Non Tender, Soft Back: Normal Inspection, No CVA Tenderness, No Vertebral Tenderness Extremity: Normal Range of Motion, Non Tender Neurologic/Psychiatric: Alert, Oriented x3 Skin: Normal Color, Warm/Dry Progress/Results/Core Measures Suspected Sepsis Recent Fever Within 48 Hours: No Infection Criteria Present: None New/Unexplained Altered Menta: No Sepsis Screen: No Definite Risk SIRS Temperature: Pulse: 82 Respiratory Rate: 18 Laboratory Tests 05/10/19 13:32: White Blood Count 8.0 Blood Pressure 165 /100 Mean: 121 Laboratory Tests 05/10/19 13:32: Creatinine 1.91H, Platelet Count 147, Total Bilirubin 1.1H Results/Orders Lab Results Laboratory Tests Test 05/10/19 13:31 05/10/19 13:32 05/10/19 13:34 Range/Units Urine Color YELLOW Urine Clarity SL CLOUDY Urine pH 6.0 5-9 Urine Specific [place] 1.025 H 1.016-1.022 Urine Protein 2+ H NEGATIVE Urine Glucose (UA) 3+ H NEGATIVE Urine Ketones NEGATIVE NEGATIVE Urine Nitrite NEGATIVE NEGATIVE Urine Bilirubin NEGATIVE NEGATIVE Urine Urobilinogen 0.2 < = 1.0 MG/DL Urine Leukocyte Esterase TRACE H NEGATIVE Urine RBC (Auto) TRACE-I NEGATIVE Urine RBC 2-5 H /HPF Urine WBC 5-10 H /HPF Urine Squamous Epithelial Cells 0-2 /HPF Urine Crystals NONE /LPF Urine Bacteria MODERATE H /HPF Urine Casts NONE /LPF Urine Mucus NEGATIVE /LPF Urine Culture Indicated YES White Blood Count 8.0 4.3-11.0 10^3/uL Red Blood Count 4.56 4.35-5.85 10^6/uL Hemoglobin 15.2 11.5-16.0 G/DL Hematocrit 43 35-52 % Mean Corpuscular Volume 94 80-99 FL Mean Corpuscular Hemoglobin 33 25-34 PG Mean Corpuscular Hemoglobin Concent 36 32-36 G/DL Red Cell Distribution Width 12.8 10.0-14.5 % Platelet Count 147 130-400 10^3/uL Mean Platelet Volume 12.0 H 7.4-10.4 FL Neutrophils (%) (Auto) 74 42-75 % Lymphocytes (%) (Auto) 20 12-44 % Monocytes (%) (Auto) 5 0-12 % Eosinophils (%) (Auto) 1 0-10 % Basophils (%) (Auto) 0 0-10 % Neutrophils # (Auto) 6.0 1.8-7.8 X 10^3 Lymphocytes # (Auto) 1.6 1.0-4.0 X 10^3 Monocytes # (Auto) 0.4 0.0-1.0 X 10^3 Eosinophils # (Auto) 0.0 0.0-0.3 10^3/uL Basophils # (Auto) 0.0 0.0-0.1 10^3/uL Sodium Level 135 135-145 MMOL/L Potassium Level 4.6 3.6-5.0 MMOL/L Chloride Level 100 98-107 MMOL/L Carbon Dioxide Level 21 21-32 MMOL/L Anion Gap 14 5-14 MMOL/L Blood Urea Nitrogen 18 7-18 MG/DL Creatinine 1.91 H 0.60-1.30 MG/DL Estimat Glomerular Filtration Rate 26 BUN/Creatinine Ratio 9 Glucose Level 500 *H 70-105 MG/DL Calcium Level 10.5 H 8.5-10.1 MG/DL Corrected Calcium 10.1 8.5-10.1 MG/DL Phosphorus Level 2.7 2.3-4.7 MG/DL Magnesium Level 1.9 1.6-2.4 MG/DL Total Bilirubin 1.1 H 0.1-1.0 MG/DL Aspartate Amino Transf (AST/SGOT) 16 5-34 U/L Alanine Aminotransferase (ALT/SGPT) 17 0-55 U/L Alkaline Phosphatase 66 40-136 U/L C-Reactive Protein High Sensitivity 0.11 0.00-0.50 MG/DL Total Protein 7.3 6.4-8.2 GM/DL Albumin 4.5 3.2-4.5 GM/DL Glucometer 435 *H 70-110 MG/DL My Orders Orders - SANYA GARCIA MD Cbc With Automated Diff (05/10/19 13:19) Comprehensive Metabolic Panel (05/10/19 13:19) Hs C Reactive Protein (05/10/19 13:19) Magnesium (05/10/19 13:19) Ua Culture If Indicated (05/10/19 13:19) Phosphorus (05/10/19 13:19) Ed Iv/Invasive Line Start (05/10/19 13:19) Lactated Ringers (Lr 1000 Ml Iv Solution (05/10/19 13:19) Urine Culture (05/10/19 13:31) Promethazine Injection (Phenergan Injec (05/10/19 13:56) Insulin (Regular) Human (Humulin R (Per (05/10/19 13:56) Losartan Tablet (Cozaar Tablet) (05/10/19 15:00) Atenolol Tablet (Tenormin Tablet) (05/10/19 15:00) Ns Iv 500 Ml (Sodium Chloride 0.9%) (05/10/19 14:48) Accucheck Stat ONCE (05/10/19 15:47) Medications Given in ED Current Medications Medications Dose Ordered Sig/Masha Route Start Time Stop Time Status Last Admin Dose Admin Atenolol 25 mg ONCE ONCE PO 05/10/19 15:00 05/10/19 15:01 DC 05/10/19 15:08 25 MG Lactated Ringer's 1,000 ml @ 0 mls/hr Q0M ONCE IV 05/10/19 13:19 05/10/19 13:22 DC 05/10/19 13:42 1,000 MLS/HR Losartan Potassium 50 mg ONCE ONCE PO 05/10/19 15:00 05/10/19 15:01 DC 05/10/19 15:09 50 MG Sodium Chloride 500 ml @ 0 mls/hr Q0M ONCE IV 05/10/19 14:48 05/10/19 14:49 DC 05/10/19 15:09 0 MLS/HR Vital Signs/I&O 05/10/19 13:09 Temp 36.9 Pulse 82 Resp 18 B/P (MAP) 165/100 (121) Capillary Refill : Less Than 3 Seconds Blood Pressure Mean: 121 Point of Care Testing Finger Stick Blood Glucose: 435 Blood Glucose Action Taken: RN AND PHYSICIAN NOTIFIED Progress Note : Progress Note Seen and evaluated. IV, labs, UA, LR 1 L bolus, Phenergan 12.5 mg IV and insulin 10 units IV ordered. Monitor patient. 1448: Labs reviewed. Creatinine near baseline. She still is a bit dry. We will give another 500 of normal saline. Blood pressures of that she has not had her home blood pressure medicines. I want to make sure that she can take her medicines so that we can verify appropriateness for outpatient continued therapy. Atenolol 25 mg by mouth and low certain 50 mg by mouth ordered. Patient states that she is overall doing better. Monitor patient. 1556: Patient states that she is actually feeling better. She has not vomited throughout the stay. She was able tolerate her home medicines. Blood pressure has improved to 150s over 90s. Blood sugar down to 346. She will sliding-scale her insulin dose when she gets home and continue by mouth challenge and light diet. She overall feels much more comfortable now. Family member at bedside does as well. Family member would like diabetes education but is unsure how to get that and was wondering if there is a home health option. I have instructed them to follow-up with the patient's primary doctor for assistance with that and I will send a copy of the chart over to him. Discharged home with return precautions. Patient and family verbalize understanding instructions and agreement with plan. Departure Impression Primary Impression: Uncontrolled type 2 diabetes mellitus with hyperglycemia Additional Impression: Nausea and vomiting due to hyperglycemia Disposition: 01 HOME, SELF-CARE Condition: Improved Departure-Patient Inst. Decision time for Depature: 15:58 Referrals: PATRICE RODNEY MD (PCP/Family) Primary Care Physician Patient Instructions: Hyperglycemia, Adult (DC), Nausea and Vomiting, Adult (DC) Add. Discharge Instructions: All discharge instructions reviewed with patient and/or family. Voiced understanding. Clear or light diet for the next 12-24 hours and then advance as tolerated. Drink plenty of fluids but taking small sips of non-sugared drink frequently. Follow-up with your Dr. early next week for recheck and further evaluation and to discuss referral for diabetes education for both you and her family member. Return for worse pain, fever, vomiting, weakness, breathing problems or other concerns as needed. Copy Copies To 1: PATRICE RODNEY MD, TIMOTHY D MD May 10, 2019 14:02
[2019-05-10] MEDS ORDERED: NS IV 500 ML 500 ML IV ONE (14:48)
[2019-05-10] MEDS ORDERED: ATENOLOL 25 MG (TENORMIN) TAB PO ONE (15:00)
[2019-05-10] MEDS ORDERED: LOSARTAN 50 MG (COZAAR) TAB PO ONE (15:00)
[2019-05-10 16:22] VITALS: BP 157/105
--- OUTSIDE RECORDS SUMMARY | 2019-05-14 01:12 | XMS REPORT | Continuity of Care Document ---
Author Organization Unknown Address Unknown Phone Unavailable Allergies Active Description Code Type Severity Reaction Onset Reported/Identified Relationship to Patient Clinical Status Yes celecoxib [id number] Drug Allergy Unknown N/A 03/08/2015 Yes isosorbide [id number] Drug Allerg y Unknown severe hypotens 03/08/2015 Yes levofloxacin [id number] Drug Allergy Unknown N/A 03/08/2015 Medications There [...] 599.0 10/13/2010 Ot 789.09 12/12/2011 Ot 564.00 UNS PEC CONSTIPATION 01/18/2013 FAUSTINO STEELE MD Ot 250.02 DIAB SHIRLENE WO COMPL, TYPE II OR UNSPEC TY 01/18/2013 FAUSTINO STEELE MD Ot 272 .4 HYPERLIPIDEMIA NEC/NOS 01/18/2013 FAUSTINO STEELE MD Ot 308 .1 STRESS REACTION, FUGUE 01/18/2013 FAUSTINO STEELE MD Ot 401 .9 HYPERTENSION NOS 01/18/2013 FAUSTINO STEELE MD Ot 526 .4 INFLAMMATION OF JAW 01/18/2013 FAUSTINO STEELE MD Ot 527 .5 SIALOLITHIASIS 10/02/2013 MAYRA LOPEZ, [facility] Ot 728. 87 MUSCLE WEAKNESS (GENERALIZED) 10/02/2013 KAPIL NUNEZ MD Ot 780. 4 DIZZINESS AND GIDDINESS 10/02/2013 KAPIL NUNEZ MD Ot V57. 1 PHYSICAL THERAPY NEC 12/21/2013 BRITTANY POOL MD Ot 250. 00 DIAB SHIRLENE WO COMPL, TYPE II OR UNSPEC TY 12/21/2013 BRITTANY POOL MD Ot 272. 4 HYPERLIPIDEMIA NEC/NOS 12/21/2013 BRITTANY POOL MD Ot 401. 9 HYPERTENSION NOS 12/21/2013 BRITTANY POOL MD Ot 410. 11 AC MYOCARD INFARC OTH ANTER WALL,INIT EP 12/21/2013 BRITTANY POOL MD Ot 410. 71 AC MYOCARDIAL INFARCT,SUBENDO INFARCT,IN 12/21/2013 BRITTANY POOL MD Ot 414. 01 CORONARY ATHEROSCLEROSIS OF [place] CORON 12/21/2013 BRITTANY POOL MD Ot 427. 9 CARDIAC DYSRHYTHMIA NOS 12/21/2013 BRITTANY POOL MD Ot 716. 90 ARTHROPATHY NOS-UNSPEC 12/21/2013 BRITTANY POOL MD Ot V15. 88 HISTORY OF FALL 12/21/2013 BRITTANY POOL MD Ot V58. 67 LONG-TERM (CURRENT) USE OF INSULIN 02/17/2014 PATRICE RODNEY MD Ot 786. 2 02/23/2014 BLADIMIR STEVENSON MD Ot 592.9 03/27/2014 BRITTANY POOL MD Ot 410. 92 AC MYOCARDIAL INFARCT,UNSPEC SITE,SUBSEQ 03/27/2014 BRITTANY POOL MD Ot V57. 89 REHABILITATION PROC NEC 03/30/2014 BRITTANY POOL MD Ot 410. 92 03/30/2014 BRITTANY POOL MD Ot V57. 89 04/27/2014 BLADIMIR STEVENSON MD Ot 592.9 URINARY CALCULUS NOS 05/23/2014 PATRICE RODNEY MD Ot 250. 00 DIAB SHIRLENE WO COMPL, TYPE II OR UNSPEC TY 05/23/2014 PATRICE RODNEY MD Ot 272. 4 HYPERLIPIDEMIA NEC/NOS 05/23/2014 PATRICE RODNEY MD Ot 327. 23 OBSTRUCTIVE SLEEP APNEA (ADULT) (PEDIATR 05/23/2014 PATRICE RODNEY MD Ot 403. 90 HYPTNSV CHR KID DIS, UNSPEC, W CHR KD ST 05/23/2014 PATRICE RODNEY MD Ot 414. 01 CORONARY ATHEROSCLEROSIS OF [place] CORON 05/23/2014 PATRICE RODNEY MD Ot 585. 9 CHRONIC KIDNEY DISEASE, UNSPECIFIED 05/23/2014 PATRICE RODNEY MD Ot 729. 5 PAIN IN LIMB 05/23/2014 PATRICE RODNEY MD Ot 780. 79 OTH MALAISE FATIGUE 05/23/2014 PATRICE RODNEY MD Ot V04. 81 ND FOR PROPHYLACTIC VACCIN AND INOCULATI 05/23/2014 PATRICE RODNEY MD Ot V58. 67 LONG-TERM (CURRENT) USE OF INSULIN 02/05/2015 MARIETTA ENAMORADO MD Ot I20 .9 02/17/2015 PATRICE RODNEY MD Ot G47. 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 9 TYPE 2 DIABETES MELLITUS WITHOUT COMPLIC 03/09/2015 BRITTANY POOL MD Ot E78. 5 HYPERLIPIDEMIA, UNSPECIFIED 03/09/2015 BRITTANY POOL MD Ot I12. 9 HYPERTENSIVE CHRONIC KIDNEY DISEASE W ST 03/09/2015 BRITTANY POOL MD Ot I21. 4 NON-ST ELEVATION (NSTEMI) MYOCARDIAL INF 03/09/2015 BRITTANY POOL MD Ot I25.119 ATHSCL HEART DISEASE OF [place] COR ART W 03/09/2015 BRITTANY POOL MD Ot I47. 1 SUPRAVENTRICULAR TACHYCARDIA 03/09/2015 BRITTANY POOL MD Ot K59. 00 CONSTIPATION, UNSPECIFIED 03/09/2015 BRITTANY POOL MD Ot N18. 9 CHRONIC KIDNEY DISEASE, UNSPECIFIED 03/09/2015 BRITTANY POOL MD Ot R00. 2 PALPITATIONS 03/09/2015 CORINE LOPEZ, BRITTANY Oconnor Ot Z79. 4 SENIOR LIVING (CURRENT) USE OF INSULIN 03/11/2015 EMILIE PA, BETHANIE Jimenez Ot E11.9 03/11/2015 EMILIE PA, BETHANIE K Ot E78.2 03/11/2015 EMILIE PA, BETHANIE K Ot I10 03/11/2015 EMILIE PA, BETHANIE Tony Ot I25.10 03/11/2015 EMILIE PA, BETHANIE Tony Ot Z79.4 03/17/2015 KELSEA LOPEZ, MARIETTA Palomino Ot I20 .9 03/17/2015 EMILIE PA, BETHANIE K Ot E11.9 [...] 272.4 04/30/2015 RASHAUN LOPEZ, PATRICE Oconnor Ot 527. 5 04/30/2015 GEOFF LOPEZ, RENE Ot 706.2 04/30/2015 GEOFF LOPEZ, RENE Ot V72.63 04/30/2015 GEOFF LOPEZ, RENE Ot V74.8 04/30/2015 JES LOPEZ, PHYLLIS Mcgraw Ot V76.12 04/30/2015 RASHAUN LOPEZ, PATRICE Oconnor Ot 715. 36 04/30/2015 RASHAUN LOPEZ, PATRICE Oconnor Ot 719. 46 04/30/2015 RASHAUN LOPEZ, PATRICE Oconnor Ot 719. 47 04/30/2015 RASHAUN LOPEZ, PATRICE Oconnor Ot 824. 8 04/30/2015 RASHAUN LOPEZ, PATRICE Oconnor Ot E888 .9 04/30/2015 RASHAUN LOPEZ, PATRICE Oconnor Ot V15. 88 04/30/2015 RASHAUN LOPEZ, PATRICE Oconnor Ot 298. 9 04/30/2015 RASHAUN LOPEZ, PATRICE Oconnor Ot 780. 93 04/30/2015 RASHAUN LOPEZ, PATRICE Oconnor Ot 793. 0 04/30/2015 RASHAUN LOPEZ, PATRICE Oconnor Ot 298. 9 04/30/2015 RASHAUN LOPEZ, PATRICE Oconnor Ot 780. 93 04/30/2015 PATRICE RODNEY MD Ot 786. 2 04/30/2015 Ot 592.9 04/30/2015 MARIETTA ENAMORADO MD Ot I20 .9 04/30/2015 BETHANIE HUITRON Ot E11.9 04/30/2015 BETHANIE HUITRON Ot E78.2 04/30/2015 BETHANIE HUITRON Ot I10 04/30/2015 BETHANIE HUITRON Ot I25.10 04/30/2015 BETHANIE HUITRON Ot Z79.4 05/04/2015 KELSEA LOPEZ, MARIETTA Palomino Ot I20 .9 ANGINA PECTORIS, UNSPECIFIED 05/10/2015 Ot 592.0 05/10/2015 [...] 272.4 05/10/2015 RASHAUN LOPEZ, PATRICE Oconnor Ot 527. 5 05/10/2015 GEOFF LOPEZ, RENE Ot 706.2 05/10/2015 GEOFF LOPEZ, RENE Ot V72.63 05/10/2015 GEOFF LOPEZ, RENE Ot V74.8 05/10/2015 JES LOPEZ, PHYLLIS Mcgraw Ot V76.12 05/10/2015 PATRICE RODNEY MD Ot 715. 36 05/10/2015 RASHAUN LOPEZ, PATRICE Oconnor Ot 719. 46 05/10/2015 PATRICE RODNEY MD Ot 719. 47 05/10/2015 PATRICE RODNEY MD Ot 824. 8 05/10/2015 PATRICE RODNEY MD Ot E888 .9 05/10/2015 PATRICE RODNEY MD Ot V15. 88 05/10/2015 PATRICE RODNEY MD Ot 298. 9 05/10/2015 PATRICE RODNEY MD Ot 780. 93 05/10/2015 PATRICE RODNEY MD Ot 793. 0 05/10/2015 PATRICE RODNEY MD Ot 298. 9 05/10/2015 RASHAUN LOPEZ, PATRICE Oconnor Ot 780. 93 05/10/2015 RASHAUN LOPEZ, PATRICE Oconnor Ot 786. 2 05/10/2015 Ot 592.9 05/10/2015 KELSEA LOPEZ, MARIETTA Palomino Ot I20 .9 05/10/2015 EMILIE PA, BETHANIE K Ot E11.9 05/10/2015 EMILIE PA, BETHANIE K Ot E78.2 05/10/2015 EMILIE PA, BETHANIE K Ot I10 05/10/2015 EMILIE PA, BETHANIE K Ot I25.10 05/10/2015 EMILIE PA, BETHANIE K Ot Z79.4 05/18/2015 KELSEA LOPEZ, MARIETTA Palomino Ot I20 .9 ANGINA PECTORIS, UNSPECIFIED 07/27/2016 EMILIE PA, BETHANIE K Ot E11.9 TYPE 2 DIABETES MELLITUS WITHOUT COMPLIC 07/27/2016 EMILIE PA, BETHANIE K Ot E78.2 MIXED HYPERLIPIDEMIA 07/27/2016 EMILIE PA, BETHANIE K Ot I10 ESSENTIAL (PRIMARY) HYPERTENSION 07/27/2016 EMILIE PA, BETHANIE K Ot I25.10 ATHSCL HEART DISEASE OF [place] CORONARY 07/27/2016 EMILIE RAYMUNDO, BETHANIE K Ot Z79.4 MOTOR EQUIPMENT LIEUTENANT (CURRENT) USE OF INSULIN 07/27/2016 KELSEA LOPEZ, MARIETTA Palomino Ot I20 .9 ANGINA PECTORIS, UNSPECIFIED 07/27/2016 EMILIE PA, BETHANIE K Ot E11.9 TYPE 2 DIABETES MELLITUS WITHOUT COMPLIC 07/27/2016 EMILIE PA, BETHANIE K Ot E78.2 MIXED HYPERLIPIDEMIA 07/27/2016 EMILIE PA, BETHANIE K Ot I10 ESSENTIAL (PRIMARY) HYPERTENSION 07/27/2016 EMILIE RAMYUNDO, BETHANIE K Ot I25.10 ATHSCL HEART DISEASE OF [place] CORONARY 07/27/2016 EMILIE RAYMUNDO, BETHANIE K Ot Z79.4 SENIOR LIVING (CURRENT) USE OF INSULIN 07/27/2016 MARIETTA ENAMORADO MD Ot I20 .9 ANGINA PECTORIS, UNSPECIFIED 08/04/2016 RASHAUN LOPEZ, PATRICE Oconnor Ot Z12. 31 ENCNTR SCREEN MAMMOGRAM FOR MALIGNANT NE 08/04/2016 RASHAUN LOPEZ, PATRICE Oconnor Ot Z12. 31 ENCNTR SCREEN MAMMOGRAM FOR MALIGNANT NE 08/04/2016 PATRICE RODNEY MD Ot Z12. 31 ENCNTR SCREEN MAMMOGRAM FOR MALIGNANT NE 08/04/2016 PATRICE RODNEY MD Ot Z12. 31 ENCNTR SCREEN MAMMOGRAM FOR MALIGNANT NE 08/22/2016 PATRICE RODNEY MD, Ot Z12. 31 ENCNTR SCREEN MAMMOGRAM FOR MALIGNANT NE 10/19/2016 BETHANIE HUITRON Ot E11.9 TYPE 2 DIABETES MELLITUS WITHOUT COMPLIC 10/19/2016 BETHANIE HUITRON Ot E78.2 MIXED HYPERLIPIDEMIA 10/19/2016 BETHANIE HUITRON Ot I10 ESSENTIAL (PRIMARY) HYPERTENSION 10/19/2016 BETHANIE HUITRON Ot I25.10 ATHSCL HEART DISEASE OF [place] CORONARY 10/19/2016 BETHANIE HUITRON Ot Z79.4 SENIOR LIVING (CURRENT) USE OF INSULIN 10/19/2016 Ot 592.0 CALC ULUS OF KIDNEY 10/19/2016 Ot 789.2 SPLE NOMEGALY 10/19/2016 Ot 272.4 HYPE RLIPIDEMIA NEC/NOS 10/19/2016 Ot 272.4 HYPE RLIPIDEMIA NEC/NOS 10/19/2016 Ot V72.84 EXA M PRE- OPERATIVE NOS 10/19/2016 Ot 272.4 HYPE RLIPIDEMIA NEC/NOS 10/19/2016 Ot 250.00 NEDA B SHIRLENE WO COMPL, TYPE II OR UNSPEC TY 10/19/2016 Ot 592.9 URIN PRIYA CALCULUS NOS 10/19/2016 Ot 729.5 PAIN IN LIMB 10/19/2016 Ot 272.4 HYPE RLIPIDEMIA NEC/NOS 10/19/2016 PATRICE RODNEY MD Ot 527. 5 SIALOLITHIASIS 10/19/2016 GEOFF LOPEZ, RENE Ot 706.2 SEBACEOUS CYST 10/19/2016 GEOFF LOPEZ, RENE Ot V72.63 PRE-PROCEDURAL LABORATORY EXAMINATION 10/19/2016 GEOFF LOPEZ, RENE Ot V74.8 SCREEN-BACTERIAL DIS NEC 10/19/2016 JES LOPEZ, PHYLLIS Mcgraw Ot V76.12 OTH SCREEN MAMMO-MALIGN NEOPLASM OF [place] 10/19/2016 PTARICE RODNEY MD Ot 715. 36 LOC OSTEOARTH NOS-L/LEG 10/19/2016 PATRICE RODNEY MD Ot 719. 46 JOINT PAIN-L/LEG 10/19/2016 PATRICE RODNEY MD, Ot 719. 47 JOINT PAIN-ANKLE 10/19/2016 PATRICE RODNEY MD Ot 824. 8 FX ANKLE NOS-CLOSED 10/19/2016 PATRICE RODNEY MD Ot E888 .9 FALL NOS 10/19/2016 PATRICE RODNEY MD, Ot V15. 88 HISTORY OF FALL 10/19/2016 PATRICE RODNEY MD Ot 298. 9 PSYCHOSIS NOS 10/19/2016 PATRICE RODNEY MD Ot 780. 93 MEMORY LOSS 10/19/2016 PATRICE RODNEY MD Ot 793. 0 NOSP (ABN) FINDINGS ON RADIOLOGICAL OT 10/19/2016 PATRICE RODNEY MD Ot 298. 9 PSYCHOSIS NOS 10/19/2016 PATRICE RODNEY MD Ot 780. 93 MEMORY LOSS 10/19/2016 PATRICE RODNEY MD Ot 786. 2 COUGH 10/19/2016 Ot 592.9 URIN PRIYA CALCULUS NOS 10/19/2016 BETHANIE HUITRON Ot E11.9 TYPE 2 DIABETES MELLITUS WITHOUT COMPLIC 10/19/2016 BETHANIE HUITRON Ot E78.2 MIXED HYPERLIPIDEMIA 10/19/2016 BETHANIE HUITRON Ot I10 ESSENTIAL (PRIMARY) HYPERTENSION 10/19/2016 BETHANIE HUITRON Ot I25.10 ATHSCL HEART DISEASE OF [place] CORONARY 10/19/2016 BETHANIE HUITRON Ot Z79.4 SENIOR LIVING (CURRENT) USE OF INSULIN 01/16/2018 ISHA BRAVO MD, Ot E11.9 TYPE 2 DIABETES MELLITUS WITHOUT COMPLIC 01/16/2018 ISHA BRAVO MD, Ot E78.00 PURE HYPERCHOLESTEROLEMIA, UNSPECIFIED 01/16/2018 ISHA BRAVO MD, Ot G47.30 SLEEP APNEA, UNSPECIFIED 01/16/2018 ISHA BRAVO MD, Ot I10 ESSENTIAL (PRIMARY) HYPERTENSION 01/16/2018 ISHA BRAVO MD, Ot I25.10 ATHSCL HEART DISEASE OF [place] CORONARY 01/16/2018 ISHA BRAVO MD, Ot I25.2 OLD MYOCARDIAL INFARCTION 01/16/2018 ISHA BRAVO MD, Ot K21.9 GASTRO-ESOPHAGEAL REFLUX DISEASE WITHOUT 01/16/2018 ISHA BRAVO MD, Ot M25.532 PAIN IN LEFT WRIST 01/16/2018 ISHA BRAVO MD, Ot S52.572A OTH INTARTIC FRACTURE OF LOWER END OF LE 01/16/2018 ISHA BRAVO MD, Ot W01.0XXA FALL SAME LEV FROM SLIP/TRIP W/O STRIKE 01/16/2018 ISHA BARVO MD, Ot Z79.4 SENIOR LIVING (CURRENT) USE OF INSULIN 01/16/2018 ISHA BRAVO MD, Ot Z79.82 MOTOR EQUIPMENT LIEUTENANT (CURRENT) USE OF ASPIRIN 01/16/2018 ISHA BRAVO [...] HUITRON Ot I25.10 ATHSCL HEART DISEASE OF [place] CORONARY 01/16/2018 BETHANIE HUITRON Ot Z79.4 SENIOR LIVING (CURRENT) USE OF INSULIN 01/16/2018 KELSEA LOPEZ, MARIETTA Palomino Ot I20 .9 ANGINA PECTORIS, UNSPECIFIED 01/16/2018 PATRICE RODNEY MD Ot Z12. 31 ENCNTR SCREEN MAMMOGRAM FOR MALIGNANT NE 01/17/2018 ISHA BRAVO MD Ot E11.9 TYPE 2 DIABETES MELLITUS WITHOUT COMPLIC 01/17/2018 ISHA BRAVO MD, Ot E78.00 PURE HYPERCHOLESTEROLEMIA, UNSPECIFIED 01/17/2018 ISHA BRAVO MD, Ot G47.30 SLEEP APNEA, UNSPECIFIED 01/17/2018 ISHA BRAVO MD Ot I10 ESSENTIAL (PRIMARY) HYPERTENSION 01/17/2018 ISHA BRAVO MD, Ot I25.10 ATHSCL HEART DISEASE OF [place] CORONARY 01/17/2018 ISHA BRAVO MD, Ot I25.2 OLD MYOCARDIAL INFARCTION 01/17/2018 ISHA BRAVO MD, Ot K21.9 GASTRO-ESOPHAGEAL REFLUX DISEASE WITHOUT 01/17/2018 ISHA BRAVO MD Ot M25.532 PAIN IN LEFT WRIST 01/17/2018 ISHA BRAVO MD, Ot S52.572A OTH INTARTIC FRACTURE OF LOWER END OF LE 01/17/2018 ISHA BRAVO MD Ot W01.0XXA FALL SAME LEV FROM SLIP/TRIP W/O STRIKE 01/17/2018 ISHA BRAVO MD, Ot Z79.4 MOTOR EQUIPMENT LIEUTENANT (CURRENT) USE OF INSULIN 01/17/2018 ISHA BRAVO MD Ot Z79.82 SENIOR LIVING (CURRENT) USE OF ASPIRIN 01/17/2018 ISHA BRAVO MD, Ot Z80.1 FAMILY HISTORY OF MALIG NEOPLASM OF TRAC 01/17/2018 ISHA BRAVO MD, Ot Z80.41 FAMILY HISTORY OF MALIGNANT NEOPLASM OF 01/17/2018 ISHA BRAVO MD, Ot Z82.49 FAMILY HX OF ISCHEM HEART DIS AND OTH DI 01/17/2018 ISHA BRAVO MD, Ot Z87.19 PERSONAL HISTORY OF OTHER DISEASES OF TH 01/17/2018 ISHA BRAVO MD, Ot Z87.442 PERSONAL HISTORY OF URINARY CALCULI 01/17/2018 ISHA BRAVO MD, Ot Z88.8 ALLERGY STATUS TO [facility] DRUG/MEDS/BIOL SUB 01/17/2018 ISHA BRAVO MD, Ot Z90.710 ACQUIRED ABSENCE OF BOTH CERVIX AND UTER 01/17/2018 ISHA BRAVO MD, Ot Z90.89 ACQUIRED ABSENCE OF OTHER ORGANS 01/18/2018 JEAN PAUL LOPEZ, FAUSTINO Zamora Ot Z01.818 ENCOUNTER FOR OTHER PREPROCEDURAL EXAMIN 02/05/2018 ISHA BRAVO MD, Ot E11.9 TYPE 2 DIABETES MELLITUS WITHOUT COMPLIC 02/05/2018 ISHA BRAOV MD, Ot E78.00 PURE HYPERCHOLESTEROLEMIA, UNSPECIFIED 02/05/2018 ISHA BRAVO MD, Ot G47.30 SLEEP APNEA, UNSPECIFIED 02/05/2018 ISHA BRAVO MD, Ot I10 ESSENTIAL (PRIMARY) HYPERTENSION 02/05/2018 ISHA BRAVO MD, Ot I25.10 ATHSCL HEART DISEASE OF [place] CORONARY 02/05/2018 ISHA BRAVO MD, Ot I25.2 OLD MYOCARDIAL INFARCTION 02/05/2018 ISHA BRAVO MD, Ot K21.9 GASTRO-ESOPHAGEAL REFLUX DISEASE WITHOUT 02/05/2018 ISHA BRAVO MD, Ot M25.532 PAIN IN LEFT WRIST 02/05/2018 ISHA BRAVO MD, Ot S52.572A OT INTARTIC FRACTURE OF LOWER END OF LE 02/05/2018 ISHA BRAVO MD, Ot W01.0XXA FALL SAME LEV FROM SLIP/TRIP W/O STRIKE 02/05/2018 ISHA BRAVO MD, Ot Z79.4 SENIOR LIVING (CURRENT) USE OF INSULIN 02/05/2018 ISHA BRAVO MD, Ot Z79.82 MOTOR EQUIPMENT LIEUTENANT (CURRENT) USE OF ASPIRIN 02/05/2018 ISHA BRAVO [...] Ot Z90.89 ACQUIRED ABSENCE OF OTHER ORGANS 06/05/2018 JEAN PAUL LOPEZ, FAUSTINO Zamora Ot Z01.818 ENCOUNTER FOR OTHER PREPROCEDURAL EXAMIN 06/05/2018 KAYE SOLORIO APRN Ot E11.65 TYPE 2 DIABETES MELLITUS WITH HYPERGLYCE 06/05/2018 KAYE SOLORIO APRN Ot E78.00 PURE HYPERCHOLESTEROLEMIA, UNSPECIFIED 06/05/2018 KAYE SOLORIO APRN Ot G47.30 SLEEP APNEA, UNSPECIFIED 06/05/2018 KAYE SOLORIO APRN Ot I10 ESSENTIAL (PRIMARY) HYPERTENSION 06/05/2018 KAYE SOLORIO APRN Ot I25.10 ATHSCL HEART DISEASE OF [place] CORONARY 06/05/2018 KAYE SOLORIO APRN Ot I25 .2 OLD MYOCARDIAL INFARCTION 06/05/2018 KAYE SOLORIO APRN Ot K21 .9 GASTRO-ESOPHAGEAL REFLUX DISEASE WITHOUT 06/05/2018 KAYE SOLORIO APRN Ot R73 .9 HYPERGLYCEMIA, UNSPECIFIED 06/05/2018 KAYE SOLORIO APRN Ot Z79 .4 SENIOR LIVING (CURRENT) USE OF INSULIN 06/05/2018 KAYE SOLORIO APRN Ot Z79.82 SENIOR LIVING (CURRENT) USE OF ASPIRIN 06/05/2018 KAYE SOLORIO APRN Ot Z80 .1 FAMILY HISTORY OF MALIG NEOPLASM OF [place]AC 06/05/2018 KAYE SOLORIO APRN Ot Z80.41 FAMILY HISTORY OF MALIGNANT NEOPLASM OF 06/05/2018 KAYE SOLORIO APRN Ot Z82.49 FAMILY HX OF ISCHEM HEART DIS AND OTH DI 06/05/2018 KAYE SOLORIO APRN Ot Z87.19 PERSONAL HISTORY OF OTHER DISEASES OF TH 06/05/2018 KAYE SOLORIO APRN Ot Z87.442 PERSONAL HISTORY OF URINARY CALCULI 06/05/2018 KAYE SOLORIO APRN Ot Z88 .1 ALLERGY STATUS TO OTHER ANTIBIOTIC AGENT 06/05/2018 KAYE SOLORIO APRN Ot Z88 .8 ALLERGY STATUS TO [facility] DRUG/MEDS/BIOL SUB 06/05/2018 KAYE SOLORIO APRN Ot Z90.710 ACQUIRED ABSENCE OF BOTH CERVIX AND UTER 06/05/2018 KAYE SOLORIO APRN Ot Z90.89 ACQUIRED ABSENCE OF OTHER ORGANS 06/05/2018 KAYE SOLORIO APRN Ot Z98.890 OTHER SPECIFIED POSTPROCEDURAL STATES 06/07/2018 KAYE SOLORIO APRN Ot E11.65 TYPE 2 DIABETES MELLITUS WITH HYPERGLYCE 06/07/2018 KAYE SOLORIO APRN Ot E78.00 PURE HYPERCHOLESTEROLEMIA, UNSPECIFIED 06/07/2018 KAYE SOLORIO APRN Ot G47.30 SLEEP APNEA, UNSPECIFIED 06/07/2018 KAYE SOLORIO APRN Ot I10 ESSENTIAL (PRIMARY) HYPERTENSION 06/07/2018 KAYE SOLORIO APRN Ot I25.10 ATHSCL HEART DISEASE OF [place] CORONARY 06/07/2018 KAYE SOLORIO APRN Ot I25 .2 OLD MYOCARDIAL INFARCTION 06/07/2018 KAYE SOLORIO APRN Ot K21 .9 GASTRO-ESOPHAGEAL REFLUX DISEASE WITHOUT 06/07/2018 KAYE SOLORIO APRN Ot R73 .9 HYPERGLYCEMIA, UNSPECIFIED 06/07/2018 KAYE SOLORIO APRN Ot Z79 .4 MOTOR EQUIPMENT LIEUTENANT (CURRENT) USE OF INSULIN 06/07/2018 KAYE SOLORIO APRN Ot Z79.82 MOTOR EQUIPMENT LIEUTENANT (CURRENT) USE OF ASPIRIN 06/07/2018 KAYE SOLORIO APRN Ot Z80 .1 FAMILY HISTORY OF MALIG NEOPLASM OF TRAC 06/07/2018 KAYE SOLORIO APRN Ot Z80.41 FAMILY HISTORY OF MALIGNANT NEOPLASM OF 06/07/2018 KAYE SOLORIO APRN Ot Z82.49 FAMILY HX OF ISCHEM HEART DIS AND OTH DI 06/07/2018 KAYE SOLORIO APRN Ot Z87.19 PERSONAL HISTORY OF OTHER DISEASES OF TH 06/07/2018 KAYE SOLORIO APRN Ot Z87.442 PERSONAL HISTORY OF URINARY CALCULI 06/07/2018 KAYE SOLORIO APRN Ot Z88 .1 ALLERGY STATUS TO OTHER ANTIBIOTIC AGENT 06/07/2018 KAYE SOLORIO APRN Ot Z88 .8 ALLERGY STATUS TO OTH DRUG/MEDS/BIOL SUB 06/07/2018 KAYE SOLORIO APRN Ot Z90.710 ACQUIRED ABSENCE OF BOTH CERVIX AND UTER 06/07/2018 KAYE SOLORIO APRN Ot Z90.89 ACQUIRED ABSENCE OF OTHER ORGANS 06/07/2018 KAYE SOLORIO APRN Ot Z98.890 OTHER SPECIFIED POSTPROCEDURAL STATES 09/01/2018 ISAEL DO JAG Ot E11.42 TYPE 2 DIABETES MELLITUS WITH DIABETIC P 09/01/2018 SHO KIRKLAND DOI Ot E11.43 TYPE 2 DIABETES W DIABETIC AUTONOMIC (PO 09/01/2018 ISAEL VILLALOBOS JAG Ot E11.65 TYPE 2 DIABETES MELLITUS WITH HYPERGLYCE 09/01/2018 ISAEL VILLALOBOS JAG Ot E78.5 HYPERLIPIDEMIA, UNSPECIFIED 09/01/2018 ISAEL VILLALOBOS JAG Ot G47.00 INSOMNIA, UNSPECIFIED 09/01/2018 ISAEL VILLALOBOS JAG Ot G47.30 SLEEP APNEA, UNSPECIFIED 09/01/2018 ISAEL VILLALOBOS JAG Ot I12.9 HYPERTENSIVE CHRONIC KIDNEY DISEASE W ST 09/01/2018 ISAEL VILLALOBOS JAG Ot I25.10 ATHSCL HEART DISEASE OF [place] CORONARY 09/01/2018 ISAEL VILLALOBOS JAG Ot I42.9 CARDIOMYOPATHY, UNSPECIFIED 09/01/2018 ISAEL VILLALOBOS JAG Ot 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 09/01/2018 ISAEL VILLALOBOS JAG Ot 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 09/01/2018 ISAEL VILLALOBOS JAG Ot 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 09/01/2018 JAG KIRKLAND DO Ot K21.9 GASTRO-ESOPHAGEAL REFLUX DISEASE WITHOUT 09/01/2018 JAG KIRKLAND DO Ot K59.09 OTHER CONSTIPATION 09/01/2018 JAG KIRKLAND DO Ot M81.0 AGE-RELATED OSTEOPOROSIS W/O CURRENT PAT 09/01/2018 JAG KIRKLAND DO Ot N18.9 CHRONIC KIDNEY DISEASE, UNSPECIFIED 09/01/2018 JAG KIRKLAND DO Ot Z79.4 SENIOR LIVING (CURRENT) USE OF INSULIN 05/10/2019 BETHANIE HUITRON Ot E11.9 TYPE 2 DIABETES MELLITUS WITHOUT COMPLIC 05/10/2019 BETHANIE HUITRON Ot E78.2 MIXED HYPERLIPIDEMIA 05/10/2019 BETHANIE HUITRON Ot I10 ESSENTIAL (PRIMARY) HYPERTENSION 05/10/2019 BETHANIE HUITRON Ot I25.10 ATHSCL HEART DISEASE OF [place] CORONARY 05/10/2019 BETHANIE HUITRON Ot Z79.4 SENIOR LIVING (CURRENT) USE OF INSULIN 05/10/2019 KELSEA LOPEZ, MARIETTA Palomino Ot I20 .9 ANGINA PECTORIS, UNSPECIFIED 05/10/2019 RASHAUN LOPEZ, PATRICE Oconnor Ot Z12. 31 ENCNTR SCREEN MAMMOGRAM FOR MALIGNANT NE 05/10/2019 JEAN PAUL LOPEZ, FAUSTINO Zamora Ot Z01.818 ENCOUNTER FOR OTHER PREPROCEDURAL EXAMIN Procedures Code Description Performed By Per formed On 26.0 INCIS SALIVARY GLND/DUCT 01/17/2013 37.22 LEFT HEART CARDIAC CATH 12/21/2013 88.53 LT H EART ANGIOCARDIOGRAM 12/21/2013 88.56 KARAN LETITIA ARTERIOGR-2 CATH 12/21/2013 Results Test Result Range Capillary blood glucose measurement by g lucometer (mass/volume) - 06/05/18 17:25 Capillary blood glucose measurement by glucometer (mas s/volume) 565 mg/dL 70-110 Complete blood count (CBC) with automate d white blood cell (WBC) differential - 06/05/18 17:30 Blood leukocytes automated count (number/volume) 7.1 10*3/uL 4.3-11.0 Blood erythrocytes automated count (number/volume) 4.04 10*6/uL 4.35-5.85 Venous blood hemoglobin measurement (mass/volume) 13.3 g/dL 11.5-16.0 Blood hematocrit (volume fraction) 38 % 35-52 Automated erythrocyte mean corpuscular volume 95 [ foz_us] 80-99 Automated erythrocyte mean corpuscular h emoglobin (mass per erythrocyte) 33 pg 25-34 Automated erythrocyte mean corpuscular h emoglobin concentration measurement (mass/volume) 35 g/dL 32-36 Automated erythrocyte distribution width ratio 13. 2 % 10.0- 14.5 Automated blood platelet count (count/volume) 124 10*3/uL 130-400 Automated blood platelet mean volume measurement 11.7 [foz_us] 7.4-10.4 Automated blood neutrophils/100 leukocytes 69 % 42-75 Automated blood lymphocytes/100 leukocytes 23 % 12-44 Blood monocytes/100 leukocytes 7 % 0-12 Automated blood eosinophils/100 leukocytes 1 % 0-10 Automated blood basophils/100 leukocytes 0 % 0-10 Blood neutrophils automated count (number/volume) 4.8 10*3 1.8-7.8 Blood lymphocytes automated count (number/volume) 1.6 10*3 1.0-4.0 Blood monocytes automated count (number/volume) 0. 5 10*3 0.0-1.0 Automated eosinophil count 0.1 10*3/uL 0 .0-0.3 Automated blood basophil count (count/volume) 0.0 10*3/uL 0.0-0.1 Whole blood basic metabolic panel - 0 05/21 17:30 Serum or plasma sodium measurement (moles/volume) 132 mmol/L 135-145 Serum or plasma potassium measurement (moles/volume) 5.1 mmol/L 3.6-5.0 Serum or plasma chloride measurement (moles/volume) 100 mmol/L 98-107 Carbon dioxide 23 mmol/L 21-32 Serum or plasma anion gap determination (moles/volume) 9 mmol/L 5-14 Serum or plasma urea nitrogen measurement (mass/volume ) 24 mg/dL 7-18 Serum or plasma creatinine measurement (mass/volume) 1.90 mg/dL 0.60-1.30 Serum or plasma urea nitrogen/creatinine mass ratio 13 NRG Serum or plasma creatinine measurement w ith calculation of estimated glomerular filtration rate 27 NRG Serum or plasma glucose measurement (mass/volume) 616 mg/dL 70-105 Serum or plasma calcium measurement (mass/volume) 10.1 mg/dL 8.5-10.1 Complete urinalysis with reflex to cultu re - 06/05/18 17:38 Urine color determination YELLOW NRG Urine clarity determination SLIGHTLY CLOUDY NRG Urine pH measurement by test strip 6.5 5-9 Specific gravity of urine by test strip 1.005 1.016-1.022 Urine protein assay by test strip, semi-quantitative 2+ NEGATIVE Urine glucose detection by automated test strip 4+ NEGATIVE Erythrocytes detection in urine sediment by light micr oscopy NEGATIVE NEGATIVE Urine ketones detection by automated test strip NE GATIVE NEGATIVE Urine nitrite detection by test strip NEGATIVE NEGATIVE Urine total bilirubin detection by test strip NEGA TIVE NEGATIVE Urine urobilinogen measurement by automated test strip (mass/volume) NORMAL NORMAL Urine leukocyte esterase detection by dipstick 1+ NEGATIVE Automated urine sediment erythrocyte cou nt by microscopy (number/high power field) NONE NRG Automated urine sediment leukocyte count by microscopy (number/high power field) [HPF] NRG Bacteria detection in urine sediment by light microsco py FEW NRG Squamous epithelial cells detection in u rine sediment by light microscopy 2-5 NRG Crystals detection in urine sediment by light microsco py NONE NRG Casts detection in urine sediment by light microscopy NONE NRG Mucus detection in urine sediment by light microscopy NEGATIVE NRG Complete urinalysis with reflex to culture NO NRG Capillary blood glucose measurement by g lucometer (mass/volume) - 06/05/18 18:16 Capillary blood glucose measurement by glucometer (mas s/volume) 474 mg/dL 70-110 Capillary blood glucose measurement by g lucometer (mass/volume) - 06/05/18 19:08 Capillary blood glucose measurement by glucometer (mas s/volume) 411 mg/dL 70-110 Capillary blood glucose measurement by g lucometer (mass/volume) - 06/05/18 20:13 Capillary blood glucose measurement by glucometer (mas s/volume) 324 mg/dL 70-110 Capillary blood glucose measurement by g lucometer (mass/volume) - 08/26/18 18:21 Capillary blood glucose measurement by glucometer (mas s/volume) 189 mg/dL 70-110 Capillary blood glucose measurement by g lucometer (mass/volume) - 08/26/18 20:33 Capillary blood glucose measurement by glucometer (mas s/volume) 261 mg/dL 70-110 Capillary blood glucose measurement by g lucometer (mass/volume) - 08/27/18 05:26 Capillary blood glucose measurement by glucometer (mas s/volume) 83 mg/dL 70-110 Complete blood count (CBC) with automate d white blood cell (WBC) differential - 08/27/18 05:53 Blood leukocytes automated count (number/volume) 6.5 10*3/uL 4.3-11.0 Blood erythrocytes automated count (number/volume) 3.77 10*6/uL 4.35-5.85 Venous blood hemoglobin measurement (mass/volume) 12.5 g/dL 11.5-16.0 Blood hematocrit (volume fraction) 37 % 35-52 Automated erythrocyte mean corpuscular volume 97 [ foz_us] 80-99 Automated erythrocyte mean corpuscular h emoglobin (mass per erythrocyte) 33 pg 25-34 Automated erythrocyte mean corpuscular h emoglobin concentration measurement (mass/volume) 34 g/dL 32-36 Automated erythrocyte distribution width ratio 13. 6 % 10.0- 14.5 Automated blood platelet count (count/volume) 108 10*3/uL 130-400 Automated blood platelet mean volume measurement 11.5 [foz_us] 7.4-10.4 Automated blood neutrophils/100 leukocytes 54 % 42-75 Automated blood lymphocytes/100 leukocytes 34 % 12-44 Blood monocytes/100 leukocytes 10 % 0-12 Automated blood eosinophils/100 leukocytes 2 % 0-10 Automated blood basophils/100 leukocytes 0 % 0-10 Blood neutrophils automated count (number/volume) 3.5 10*3 1.8-7.8 Blood lymphocytes automated count (number/volume) 2.2 10*3 1.0-4.0 Blood monocytes automated count (number/volume) 0. 7 10*3 0.0-1.0 Automated eosinophil count 0.1 10*3/uL 0 .0-0.3 Automated blood basophil count (count/volume) 0.0 10*3/uL 0.0-0.1 Comprehensive metabolic panel - 08/27/18 05:55 Serum or plasma sodium measurement (moles/volume) 140 mmol/L 135-145 Serum or plasma potassium measurement (moles/volume) 3.8 mmol/L 3.6-5.0 Serum or plasma chloride measurement (moles/volume) 106 mmol/L 98-107 Carbon dioxide 25 mmol/L 21-32 Serum or plasma anion gap determination (moles/volume) 9 mmol/L 5-14 Serum or plasma urea nitrogen measurement (mass/volume ) 17 mg/dL 7-18 Serum or plasma creatinine measurement (mass/volume) 1.54 mg/dL 0.60-1.30 Serum or plasma urea nitrogen/creatinine mass ratio 11 NRG Serum or plasma creatinine measurement w ith calculation of estimated glomerular filtration rate 34 NRG Serum or plasma glucose measurement (mass/volume) 89 mg/dL 70-105 Serum or plasma calcium measurement (mass/volume) 10.7 mg/dL 8.5-10.1 Serum or plasma total bilirubin measurement (mass/volu me) 0.5 mg/dL 0.1-1.0 Serum or plasma alkaline phosphatase jon surement (enzymatic activity/volume) 65 U/L 40-136 Serum or plasma aspartate aminotransfera se measurement (enzymatic activity/volume) 29 U/L 5-34 Serum or plasma alanine aminotransferase measurement (enzymatic activity/volume) 29 U/L 0-55 Serum or plasma protein measurement (mass/volume) 6.1 g/dL 6.4-8.2 Serum or plasma albumin measurement (mass/volume) 3.7 g/dL 3.2-4.5 CALCIUM CORRECTED 10.9 mg/dL 8.5-10.1 Capillary blood glucose measurement by g lucometer (mass/volume) - 08/27/18 11:11 Capillary blood glucose measurement by glucometer (mas s/volume) 193 mg/dL 70-110 Capillary blood glucose measurement by g lucometer (mass/volume) - 08/27/18 16:16 Capillary blood glucose measurement by glucometer (mas s/volume) 283 mg/dL 70-110 Capillary blood glucose measurement by g lucometer (mass/volume) - 08/27/18 20:09 Capillary blood glucose measurement by glucometer (mas s/volume) 303 mg/dL 70-110 Capillary blood glucose measurement by g lucometer (mass/volume) - 08/28/18 05:31 Capillary blood glucose measurement by glucometer (mas s/volume) 102 mg/dL 70-110 Capillary blood glucose measurement by g lucometer (mass/volume) - 08/28/18 10:54 Capillary blood glucose measurement by glucometer (mas s/volume) 286 mg/dL 70-110 Capillary blood glucose measurement by g lucometer (mass/volume) - 08/28/18 15:55 Capillary blood glucose measurement by glucometer (mas s/volume) 170 mg/dL 70-110 Capillary blood glucose measurement by g lucometer (mass/volume) - 08/28/18 20:32 Capillary blood glucose measurement by glucometer (mas s/volume) 237 mg/dL 70-110 Capillary blood glucose measurement by g lucometer (mass/volume) - 08/29/18 05:09 Capillary blood glucose measurement by glucometer (mas s/volume) 89 mg/dL 70-110 Capillary blood glucose measurement by g lucometer (mass/volume) - 08/29/18 11:00 Capillary blood glucose measurement by glucometer (mas s/volume) 118 mg/dL 70-110 Capillary blood glucose measurement by g lucometer (mass/volume) - 08/29/18 16:00 Capillary blood glucose measurement by glucometer (mas s/volume) 153 mg/dL 70-110 Capillary blood glucose measurement by g lucometer (mass/volume) - 08/29/18 20:17 Capillary blood glucose measurement by glucometer (mas s/volume) 227 mg/dL 70-110 Capillary blood glucose measurement by g lucometer (mass/volume) - 08/30/18 05:25 Capillary blood glucose measurement by glucometer (mas s/volume) 79 mg/dL 70-110 Capillary blood glucose measurement by g lucometer (mass/volume) - 08/30/18 11:02 Capillary blood glucose measurement by glucometer (mas s/volume) 380 mg/dL 70-110 Capillary blood glucose measurement by g lucometer (mass/volume) - 08/30/18 16:00 Capillary blood glucose measurement by glucometer (mas s/volume) 315 mg/dL 70-110 Capillary blood glucose measurement by g lucometer (mass/volume) - 08/30/18 20:27 Capillary blood glucose measurement by glucometer (mas s/volume) 215 mg/dL 70-110 Capillary blood glucose measurement by g lucometer (mass/volume) - 08/31/18 05:07 Capillary blood glucose measurement by glucometer (mas s/volume) 147 mg/dL 70-110 Capillary blood glucose measurement by g lucometer (mass/volume) - 08/31/18 10:56 Capillary blood glucose measurement by glucometer (mas s/volume) 257 mg/dL 70-110 Capillary blood glucose measurement by g lucometer (mass/volume) - 08/31/18 15:45 Capillary blood glucose measurement by glucometer (mas s/volume) 242 mg/dL 70-110 Capillary blood glucose measurement by g lucometer (mass/volume) - 08/31/18 20:43 Capillary blood glucose measurement by glucometer (mas s/volume) 159 mg/dL 70-110 Capillary blood glucose measurement by g lucometer (mass/volume) - 09/01/18 05:11 Capillary blood glucose measurement by glucometer (mas s/volume) 138 mg/dL 70-110 Capillary blood glucose measurement by g lucometer (mass/volume) - 09/01/18 11:05 Capillary blood glucose measurement by glucometer (mas s/volume) 315 mg/dL 70-110 Complete urinalysis with reflex to cultu re - 05/10/19 13:31 Urine color determination YELLOW NRG Urine clarity determination SL CLOUDY N RG Urine pH measurement by test strip 6.0 5-9 Specific gravity of urine by test strip 1.025 1.016-1.022 Urine protein assay by test strip, semi-quantitative 2+ NEGATIVE Urine glucose detection by automated test strip 3+ NEGATIVE Erythrocytes detection in urine sediment by light micr oscopy TRACE-I NEGATIVE Urine ketones detection by automated test strip NE GATIVE NEGATIVE Urine nitrite detection by test strip NEGATIVE NEGATIVE Urine total bilirubin detection by test strip NEGA TIVE NEGATIVE Urine urobilinogen measurement by automated test strip (mass/volume) 0.2 mg/dL < = 1.0 Urine leukocyte esterase detection by dipstick TRA CE NEGATIVE Automated urine sediment erythrocyte cou nt by microscopy (number/high power field) [HPF] NRG Automated urine sediment leukocyte count by microscopy (number/high power field) [HPF] NRG Bacteria detection in urine sediment by light microsco py MODERATE NRG Squamous epithelial cells detection in u rine sediment by light microscopy 0-2 NRG Crystals detection in urine sediment by light microsco py NONE NRG Casts detection in urine sediment by light microscopy NONE NRG Mucus detection in urine sediment by light microscopy NEGATIVE NRG Complete urinalysis with reflex to culture YES NRG Bacterial urine culture - 05/10/19 13:31 Bacterial urine culture 3 OR MORE NRG COLONY COUNT >100,000/ML NRG FTX;REPORTABLE (GRAM POSITIVE) SUGGESTING PROBABLE NRG FREE TEXT ENTRY 2 COLLECTION CONTAMINATION WITH SK IN NRG FREE TEXT ENTRY 3 XIN. NO SUSCEPTIBILITY PERFOR MED NRG Complete blood count (CBC) with automate d white blood cell (WBC) differential - 05/10/19 13:32 Blood leukocytes automated count (number/volume) 8.0 10*3/uL 4.3-11.0 Blood erythrocytes automated count (number/volume) 4.56 10*6/uL 4.35-5.85 Venous blood hemoglobin measurement (mass/volume) 15.2 g/dL 11.5-16.0 Blood hematocrit (volume fraction) 43 % 35-52 Automated erythrocyte mean corpuscular volume 94 [ foz_us] 80-99 Automated erythrocyte mean corpuscular h emoglobin (mass per erythrocyte) 33 pg 25-34 Automated erythrocyte mean corpuscular h emoglobin concentration measurement (mass/volume) 36 g/dL 32-36 Automated erythrocyte distribution width ratio 12. 8 % 10.0- 14.5 Automated blood platelet count (count/volume) 147 10*3/uL 130-400 Automated blood platelet mean volume measurement 12.0 [foz_us] 7.4-10.4 Automated blood neutrophils/100 leukocytes 74 % 42-75 Automated blood lymphocytes/100 leukocytes 20 % 12-44 Blood monocytes/100 leukocytes 5 % 0-12 Automated blood eosinophils/100 leukocytes 1 % 0-10 Automated blood basophils/100 leukocytes 0 % 0-10 Blood neutrophils automated count (number/volume) 6.0 10*3 1.8-7.8 Blood lymphocytes automated count (number/volume) 1.6 10*3 1.0-4.0 Blood monocytes automated count (number/volume) 0. 4 10*3 0.0-1.0 Automated eosinophil count 0.0 10*3/uL 0 .0-0.3 Automated blood basophil count (count/volume) 0.0 10*3/uL 0.0-0.1 Comprehensive metabolic panel - 05/10/19 13:32 Serum or plasma sodium measurement (moles/volume) 135 mmol/L 135-145 Serum or plasma potassium measurement (moles/volume) 4.6 mmol/L 3.6-5.0 Serum or plasma chloride measurement (moles/volume) 100 mmol/L 98-107 Carbon dioxide 21 mmol/L 21-32 Serum or plasma anion gap determination (moles/volume) 14 mmol/L 5-14 Serum or plasma urea nitrogen measurement (mass/volume ) 18 mg/dL 7-18 Serum or plasma creatinine measurement (mass/volume) 1.91 mg/dL 0.60-1.30 Serum or plasma urea nitrogen/creatinine mass ratio 9 NRG Serum or plasma creatinine measurement w ith calculation of estimated glomerular filtration rate 26 NRG Serum or plasma glucose measurement (mass/volume) 500 mg/dL 70-105 Serum or plasma calcium measurement (mass/volume) 10.5 mg/dL 8.5-10.1 Serum or plasma total bilirubin measurement (mass/volu me) 1.1 mg/dL 0.1-1.0 Serum or plasma alkaline phosphatase jon surement (enzymatic activity/volume) 66 U/L 40-136 Serum or plasma aspartate aminotransfera se measurement (enzymatic activity/volume) 16 U/L 5-34 Serum or plasma alanine aminotransferase measurement (enzymatic activity/volume) 17 U/L 0-55 Serum or plasma protein measurement (mass/volume) 7.3 g/dL 6.4-8.2 Serum or plasma albumin measurement (mass/volume) 4.5 g/dL 3.2-4.5 CALCIUM CORRECTED 10.1 mg/dL 8.5-10.1 Serum or plasma phosphate measurement (m ass/volume) - 05/10/19 13:32 Serum or plasma phosphate measurement (mass/volume) 2.7 mg/dL 2.3-4.7 Magnesium - 05/10/19 13:32 Magnesium 1.9 mg/dL 1.6-2.4 Serum or plasma C reactive protein measu rement (mass/volume) - 05/10/19 13:32 Serum or plasma C reactive protein measurement (mass/v olume) 0.11 mg/dL 0.00-0.50 Capillary blood glucose measurement by g lucometer (mass/volume) - 05/10/19 13:34 Capillary blood glucose measurement by glucometer (mas s/volume) 435 mg/dL 70-110 Capillary blood glucose measurement by g lucometer (mass/volume) - 05/10/19 15:51 Capillary blood glucose measurement by glucometer (mas s/volume) 341 mg/dL 70-110 Encounters ACCT No. Visit Date/Time Discharge Status Pt. Type Provider Facility Loc./Unit Complaint [id number] 05/10/2019 13:02:00 020 16:22:00 DIS Emergency SANYA GARCIA MD [facility] ER WEAKNESS / HIGH BLOOD SUGAR 412 [id number] 08/26/2018 16:34:00 019 13:15:00 DIS Inpatient KIRKLAND DO, JAG [facility] IRF CVA [id number] 06/05/2018 17:15:00 019 20:26:00 DIS Emergency KAYE SOLORIO APRN [facility] ER HIGH BS [id number] 01/18/2018 13:00:00 018 23:59:59 CLS Preadmit FAUSTINO REAVES MD [facility] SDC LEFT DISTAL RADIUS FRAC TURE [id number] 01/17/2018 05:36:00 018 23:59:59 CLS Outpatient FAUSTINO REAVES MD [facility] PREOP LEFT DISTAL RADIUS FRA CTURE [id number] 01/15/2018 23:28:00 018 01:15:00 DIS Emergency ISHA BRAVO MD [facility] ER FALL [id number] 08/13/2017 15:54:00 018 23:59:59 CLS Preadmit PATRICE RODNEY MD [facility] RAD SCREENING MAMMOGRAM [id number] 08/02/2016 14:26:00 017 23:59:59 CLS Outpatient PATRICE RODNEY MD [facility] RAD SCREENING [id number] 05/17/2015 10:00:00 016 08:04:00 DIS Outpatient MARIETTA ENAMORADO MD [facility] CR STABLE ANGINA [id number] 05/05/2015 10:00:00 016 23:59:59 CLS Preadmit MARIETTA ENAMORADO MD [facility] CR STABLE ANGINA 04/19 [id number] 04/21/2015 12:10:00 016 00:01:00 DIS Outpatient MARIETTA ENAMORADO MD [facility] CR STABLE ANGINA 04/19 [id number] 03/09/2015 10:24:00 016 13:51:00 DIS Inpatient BRITTANY POOL MD [facility] CSD SVT, CHEST PAIN [id number] 03/08/2015 11:14:00 016 23:59:59 CLS Outpatient SHANNEN HUITRON [facility] CARD IDDM,HTN [id number] 02/16/2015 19:45:00 015 06:45:00 DIS Outpatient PATRICE RODNEY MD [facility] SLEEP ANNIE, SNORING, INSOMNIA, EDS [id number] 05/22/2014 20:10:00 015 16:15:00 DIS Inpatient PATRICE RODNEY MD [facility] CSD CHEST PAIN [id number] 03/27/2014 11:45:00 015 12:54:00 DIS Outpatient BRITTANY POOL MD [facility] CR AMI [id number] 01/27/2014 14:30:00 014 23:59:59 CLS Outpatient BLADIMIR STEVENSON MD [facility] RAD STONES [id number] 01/26/2014 09:57:00 014 23:59:59 CLS Outpatient PATRICE RODNEY MD [facility] RAD COUGH [id number] 12/21/2013 05:12:00 014 13:00:00 DIS Inpatient BRITTANY POOL MD [facility] CSD CHEST PAIN MD [id number] 09/29/2013 13:45:00 014 13:20:00 DIS Outpatient KAPIL NUNEZ MD [facility] REHAB DIZZINESS AND MUSCLE WE AKNESS BPPV [id number] 07/07/2013 08:03:00 23:59:59 CLS Outpatient PATRICE RODNEY MD [facility] RAD CONFUSION,MEMORY LAPSES [id number] 07/04/2013 10:33:00 23:59:59 CLS Outpatient PATRICE RODNEY MD [facility] LAB CONSUSION,MEMORY LAPSE [id number] 05/07/2013 11:03:00 23:59:59 CLS Outpatient PATRICE RODNEY MD [facility] RAD FALL,LT KNEE, AND LT AN KLE [id number] 02/07/2013 13:24:00 23:59:59 CLS Outpatient PHYLLIS ANDRE MD [facility] RAD SCREENING [id number] 02/07/2013 08:39:00 23:59:59 CLS Outpatient RENE TELLEZ MD [facility] PREOP CYST ON BACK [id number] 01/15/2013 17:26:00 14:30:00 DIS Inpatient CEDRIC LOPEZ, FAUSTINO Zamora [facility] SURGICAL ACUTE L SUBMANDIBULAR SIALADENITIS/SINUSITIS [id number] 01/14/2013 11:53:00 23:59:59 CLS Outpatient PATRICE RODNEY MD [facility] RAD SWELLING SUBMANDIBULAR LFT SIDED FACIAL STRUCTURES [id number] 03/08/2015 17:40:00 Document Registration [id number] 04/28/2014 00:14:00 Document Registration [id number] 06/03/2012 08:38:00 Document Registration [id number] 03/29/2012 08:39:00 Document Registration [id number] 03/06/2012 10:50:00 Document Registration [id number] 03/06/2012 10:44:00 Document Registration [id number] 03/06/2012 10:39:00 Document Registration [id number] 12/12/2011 13:20:00 Document Registration [id number] 12/11/2011 08:26:00 Document Registration [id number] 11/28/2011 10:18:00 Document Registration [id number] 08/11/2011 10:37:00 Document Registration [id number] 06/01/2011 08:58:00 Document Registration [id number] 02/23/2011 10:36:00 Document Registration [id number] 02/13/2011 13:41:00 Document Registration [id number] 12/26/2010 16:18:00 Document Registration [id number] 10/13/2010 00:38:00 Document Registration [id number] 09/30/2010 10:34:00 Document Registration [id number] 04/11/2010 06:28:00 Document Registration [id number] 03/21/2010 11:34:00 Document Registration [id number] 03/15/2010 10:30:00 Document Registration [id number] 03/10/2010 00:00:00 Document Registration [id number] 03/07/2010 13:39:00 Document Registration [id number] 02/17/2010 15:16:00 Document Registration [id number] 02/03/2010 11:03:00 Document Registration [id number] 02/02/2010 12:57:00 Document Registration [id number] 01/06/2010 10:29:00 Document Registration [id number] 01/02/2010 01:11:00 Document Registration [id number] 12/09/2009 15:03:00 Document Registration [id number] 11/22/2009 14:09:00 Document Registration [id number] 11/11/2009 08:29:00 Document Registration [id number] 11/09/2009 14:06:00 Document Registration
== END 2019-05-10 16:22 | disposition home or self-care (01) ==
LOC: EDUNIT# 13:01 → ER 13:02
DX: E11.65 Type 2 diabetes mellitus with hyperglycemia (principal); R11.2 Nausea with vomiting, unspecified; I10 Essential (primary) hypertension; E11.40 Type 2 diabetes mellitus with diabetic neuropathy, unspecified; I25.2 Old myocardial infarction; I25.10 Atherosclerotic heart disease of native coronary artery without angina pectoris; E78.00 Pure hypercholesterolemia, unspecified; G47.30 Sleep apnea, unspecified; K21.9 Gastro-esophageal reflux disease without esophagitis; Z99.89 Dependence on other enabling machines and devices; Z86.73 Personal history of transient ischemic attack (TIA), and cerebral infarction without residual deficits; Z88.1 Allergy status to other antibiotic agents; Z88.8 Allergy status to other drugs, medicaments and biological substances; Z88.6 Allergy status to analgesic agent; Z79.82 Long term (current) use of aspirin; Z79.02 Long term (current) use of antithrombotics/antiplatelets; Z79.4 Long term (current) use of insulin; Z80.1 Family history of malignant neoplasm of trachea, bronchus and lung; Z80.41 Family history of malignant neoplasm of ovary; Z82.49 Family history of ischemic heart disease and other diseases of the circulatory system
CPT/HCPCS: 36415; 80053; 81000; 82962; 83735; 84100; 85025; 86141; 87088

== ENCOUNTER 2019-12-07 21:45 | Emergency (ER) | payer MEDICARE, OTHER ==
[~2019-12-07] VITALS: Ht 170.2 cm; Wt 86.4 kg
[~2019-12-07 21:45] MED LIST changes: +ASPI-1238 PO; -ASPI-983 PO; +MELA3TAB39 PO; -MELA3TAB65 PO
[2019-12-07 23:17] LABS: ALBUMIN 4.2 GM/DL (3.2-4.5); POTASSIUM 4.1 MMOL/L (3.6-5.0)
[2019-12-07 23:18] LABS: CALCIUM 10.9 MG/DL (8.5-10.1)
[2019-12-07 23:20] LABS: TOTAL PROTEIN 7.1 GM/DL (6.4-8.2)
[2019-12-07 23:21] LABS: BILIRUBIN,TOTAL 0.9 MG/DL (0.1-1.0)
[2019-12-07 23:23] LABS: CREATININE SERUM 1.53 MG/DL (0.60-1.30)
[2019-12-07 23:26] LABS: BASOPHILS % (AUTO) 0 % (0-10); EOSINOPHILS # (AUTO) 0.1 10^3/uL (0.0-0.3); EOSINOPHILS % (AUTO) 1 % (0-10); HEMATOCRIT 41 % (35-52); HEMOGLOBIN 14.4 g/dL (11.5-16.0); LYMPHOCYTES # (AUTO) 2.4 10^3/uL (1.0-4.0); LYMPHOCYTES % (AUTO) 26 % (12-44); MEAN CORPUSCULAR HEMOGLOBIN 33 pg (25-34); MEAN CORPUSCULAR HGB CONC 35 g/dL (32-36); MEAN CORPUSCULAR VOLUME 94 fL (80-99); MONOCYTES # (AUTO) 0.6 10^3/uL (0.0-1.0); MONOCYTES % (AUTO) 7 % (0-12); NEUTROPHILS # (AUTO) 6.1 10^3/uL (1.8-7.8); NEUTROPHILS % (AUTO) 66 % (42-75); PLATELET COUNT 162 10^3/uL (130-400); WHITE BLOOD COUNT 9.2 10^3/uL (4.3-11.0)
--- NOTE | 2019-12-08 00:23 | ED GU-Female ---
General Chief Complaint: Glucose Problems Stated Complaint: DEHYDRATION,DIABETIC HIGH SUGARS Source: patient Exam Limitations: intoxication History of Present Illness Date Seen by Provider: Dec 08, 2019 Time Seen by Provider: 00:00 Initial Comments The patient presents to the ER by private conveyance with chief complaint of sugars a little out of control. She also has had dysuria for the past 4 days. She had a bout of diarrhea 4 days ago after eating at [employer]. She says she has urge incontinence which is unusual for her she's never had that before. Her primary care doctor is Dr. Barry. She takes Novolin N and Novolin R but has not required that for her blood sugars lately. She's not having any fevers chills nausea vomiting diarrhea today. She's not having cough shortness of air loss of sense of taste or smell, sore throat. No sick contacts. Allergies and Home Medications Allergies Coded Allergies: celecoxib (Unverified Allergy, Unknown, 03/08/15) levofloxacin (Verified Allergy, Unknown, 03/08/15) isosorbide (Verified Adverse Reaction, Unknown, severe hypotension, 03/08/15) Home Medications Alendronate Sodium 10 Mg Tablet, 10 MG PO DAILY, (Reported) Allopurinol 300 Mg Tablet, 300 MG PO DAILY, (Reported) Aspirin 81 Mg Tablet.dr, 81 MG PO DAILY, (Reported) Atenolol 25 Mg Tablet, 25 MG PO BID, (Reported) Atorvastatin Calcium 80 Mg Tablet, 80 MG PO HS, (Reported) Clopidogrel Bisulfate 75 Mg Tablet, 75 MG PO DAILY, (Reported) Docusate Sodium 100 Mg Capsule, 100 MG PO BID, (Reported) Fenofibrate,Micronized 67 Mg Capsule, 67 MG PO HS Prescribed by: JAG KIRKLAND on 08/30/18 1210 Furosemide 20 Mg Tablet, 20 MG PO MoFr, (Reported) Insulin NPH Human Isophane 100 Unit/1 Ml Vial, 66 UNITS SC DAILY, (Reported) Insulin NPH Human Isophane 100 Unit/1 Ml Vial, 77 UNIT SQ HS, (Reported) Insulin Regular, Human 100 Unit/1 Ml Vial, 20 UNIT SC TID, (Reported) Losartan Potassium 50 Mg Tablet, 50 MG PO DAILY, (Reported) Ranolazine 1,000 Mg Tab.er.12h, 1,000 MG PO BID, (Reported) [Zolpidem Tartrate] 5 MG TAB, 5 MG PO HS PRN for INSOMNIA Prescribed by: JAG KIRKLAND on 08/30/18 1210 Patient Home Medication List Home Medication List Reviewed: Yes Review of Systems Review of Systems Constitutional: No chills, No diaphoresis, No fever, No malaise EENTM: No ear discharge, No ear pain Respiratory: No cough, No short of breath Cardiovascular: No chest pain, No palpitations Gastrointestinal: No abdominal pain, No nausea, No vomiting Genitourinary: burning; denies dysuria; frequency, incontinence : No Musculoskeletal: No back pain, No joint pain Skin: No pruritus, No rash All Other Systemes Reviewed Negative Unless Noted: Yes Past Eaiseey-Qmqojo-Unpawh Hx Patient Social History Alcohol Use: Denies Use Recreational Drug Use: No Smoking Status: Never a Smoker 2nd Hand Smoke Exposure: No Recent Foreign Travel: No Contact w/Someone Who Travel: No Recent Hopitalizations: No Immunizations Up To Date Tetanus Booster (TDap): Less than 5yrs Date of Pneumonia Vaccine: Jan 17, 2013 Date of Influenza Vaccine: Dec 03, 2012 Seasonal Allergies Seasonal Allergies: No Past Medical History Surgeries: Yes (HYSTERECTOMY 1997, LAP. PRIETO 5-6 YRS. AGO, T&A-49 YRS. 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) Neuropathy, Stroke, Vertigo Reproductive Disorders: No Female Reproductive Disorders: Denies Sexually Transmitted Disease: No HIV/AIDS: No Genitourinary: Yes Kidney Stones, Renal Failure Gastrointestinal: Yes (constipation) Gastroesophageal Reflux, Chronic Constipation Musculoskeletal: Yes (arthritis) Arthritis, Back Injury Endocrine: Yes Diabetes, Insulin dep Chronic Ear Infection Hearing Impairment: Hard of Hearing Cancer: No Psychosocial: No Integumentary: Yes (healing cyst removal) Blood Disorders: No Adverse Reaction/Blood Tranf: No Family Medical History Cancer (lung and ovarian) 09 BROTHER, Onset:30's - 40 09 SISTER, Onset:60 years & older Congenital heart disease (mitral valve prolapse) 09 SISTER 09 SISTER Congestive heart failure 03 FATHER, Onset:60 years & older 03 MOTHER, Onset:50's - 60 09 SISTER, Onset:60 years & older Family history: Arthritis 03 MOTHER, Onset:60 years & older Family history: Diabetes mellitus 03 FATHER, Onset:60 years & older 09 SISTER, Onset:50's - 60 Family history: Gastrointestinal disease 03 FATHER, Onset:50's - 60 Hereditary disease (HTN) 09 SISTER, Onset:40's - 50 History of - disorder (Urinary problems) 09 SISTER, Onset:60 years & older 09 SISTER, Onset:20's - 25 History of - respiratory disease (asthma) 09 SISTER Hypercholesterolemia 09 SISTER, Onset:50's - 60 Psychotic disorder (anxiety) 09 SISTER, Onset:30's - 40 Heart Disease Physical Exam Vital Signs Capillary Refill : Height, Weight, BMI Height: 5'6.00" Weight: 220lbs. 10.0oz. [id number]; 36.00 BMI Method:Estimated General Appearance: WD/WN, no apparent distress HEENT: normal ENT inspection, pharynx normal Neck: full range of motion, normal inspection Cardiovascular: normal peripheral pulses, regular rate, rhythm Respiratory: lungs clear, normal breath sounds, no respiratory distress, no accessory muscle use Gastrointestinal: normal bowel sounds, non tender, soft Extremities: normal range of motion, normal capillary refill Neurologic/Psychiatric: alert, normal mood/affect, oriented x 3 Progress/Results/Core Measures Suspected Sepsis SIRS Temperature: Pulse: Respiratory Rate: Laboratory Tests 12/07/19 22:24: White Blood Count 9.2 Blood Pressure / Mean: Laboratory Tests 12/07/19 22:24: Creatinine 1.53H, Platelet Count 162, Total Bilirubin 0.9 Results/Orders Lab Results Laboratory Tests Test 12/07/19 22:24 12/07/19 22:30 12/08/19 00:17 Range/Units White Blood Count 9.2 4.3-11.0 10^3/uL Red Blood Count 4.35 3.80-5.11 10^6/uL Hemoglobin 14.4 11.5-16.0 g/dL Hematocrit 41 35-52 % Mean Corpuscular Volume 94 80-99 fL Mean Corpuscular Hemoglobin 33 25-34 pg Mean Corpuscular Hemoglobin Concent 35 32-36 g/dL Red Cell Distribution Width 12.8 10.0-14.5 % Platelet Count 162 130-400 10^3/uL Mean Platelet Volume 12.0 9.0-12.2 fL Immature Granulocyte % (Auto) 1 % Neutrophils (%) (Auto) 66 42-75 % Lymphocytes (%) (Auto) 26 12-44 % Monocytes (%) (Auto) 7 0-12 % Eosinophils (%) (Auto) 1 0-10 % Basophils (%) (Auto) 0 0-10 % Neutrophils # (Auto) 6.1 1.8-7.8 10^3/uL Lymphocytes # (Auto) 2.4 1.0-4.0 10^3/uL Monocytes # (Auto) 0.6 0.0-1.0 10^3/uL Eosinophils # (Auto) 0.1 0.0-0.3 10^3/uL Basophils # (Auto) 0.0 0.0-0.1 10^3/uL Immature Granulocyte # (Auto) 0.1 0.0-0.1 10^3/uL Sodium Level 135 135-145 MMOL/L Potassium Level 4.1 3.6-5.0 MMOL/L Chloride Level 101 98-107 MMOL/L Carbon Dioxide Level 22 21-32 MMOL/L Anion Gap 12 5-14 MMOL/L Blood Urea Nitrogen 23 H 7-18 MG/DL Creatinine 1.53 H 0.60-1.30 MG/DL Estimat Glomerular Filtration Rate 34 BUN/Creatinine Ratio 15 Glucose Level 352 H 70-105 MG/DL Calcium Level 10.9 H 8.5-10.1 MG/DL Corrected Calcium 10.7 H 8.5-10.1 MG/DL Total Bilirubin 0.9 0.1-1.0 MG/DL Aspartate Amino Transf (AST/SGOT) 22 5-34 U/L Alanine Aminotransferase (ALT/SGPT) 21 0-55 U/L Alkaline Phosphatase 75 40-136 U/L Total Protein 7.1 6.4-8.2 GM/DL Albumin 4.2 3.2-4.5 GM/DL Glucometer 330 H 70-110 MG/DL Urine Color YELLOW Urine Clarity CLOUDY Urine pH 5.0 5-9 Urine Specific [place] 1.025 H 1.016-1.022 Urine Protein 3+ H NEGATIVE Urine Glucose (UA) 3+ H NEGATIVE Urine Ketones TRACE H NEGATIVE Urine Nitrite NEGATIVE NEGATIVE Urine Bilirubin NEGATIVE NEGATIVE Urine Urobilinogen 0.2 < = 1.0 MG/DL Urine Leukocyte Esterase NEGATIVE NEGATIVE Urine RBC (Auto) 1+ H NEGATIVE Urine RBC 10-25 H /HPF Urine WBC 10-25 H /HPF Urine Squamous Epithelial Cells 5-10 /HPF Urine Crystals NONE /LPF Urine Bacteria LARGE H /HPF Urine Casts NONE /LPF Urine Mucus NEGATIVE /LPF Urine Culture Indicated YES My Orders Orders - ZAID LORENZO Cbc With Automated Diff (12/07/19 23:09) Comprehensive Metabolic Panel (12/07/19 23:09) Accucheck Stat ONCE (12/07/19 23:09) Ua Culture If Indicated (12/07/19 23:09) Ed Iv/Invasive Line Start (12/07/19 23:09) Insulin (Regular) Human (Novolin R (Per (12/08/19 00:30) Urine Culture (12/08/19 00:17) Accucheck Stat ONCE (12/08/19 00:39) Rocephin 1 Gm Iv (1x Dose) (12/08/19 00:45) Medications Given in ED Current Medications Medications Dose Ordered Sig/Masha Route Start Time Stop Time Status Last Admin Dose Admin Insulin Human Regular 10 unit ONCE ONCE SC 12/08/19 00:30 12/08/19 00:31 DC 12/08/19 00:30 10 UNIT Vital Signs/I&O Capillary Refill : Progress Note : Time: 00:46 Progress Note Aseptic vital signs and a non-acute abdomen. Patient does have a UTI. Her blood sugar is elevated so we gave her 10 units of regular insulin subcutaneous and were going to recheck that. We are going to give her a gram of Rocephin. We have encouraged her to go home drink fluids and keep her blood sugar under a little tighter control. She says usually it is not this high. Her labile blood sugar is probably due to her urinary tract infection. We did give her the option for outpatient versus observation and she would prefer to try outpatient therapy first. Departure Impression Primary Impression: Urinary tract infection Qualified Codes: N30.01 - Acute cystitis with hematuria Additional Impression: Hyperglycemia due to diabetes mellitus Disposition: HOME, SELF-CARE Condition: Stable Departure-Patient Inst. Decision time for Depature: 00:48 Referrals: PATRICE RODNEY MD (PCP/Family) Primary Care Physician Patient Instructions: Acute Cystitis (DC), Hyperglycemia, Adult Add. Discharge Instructions: Drink lots of fluids. Use your insulin to control your blood sugar as best she can below 200. Follow-up with Dr. Barry this week as necessary. supervisor carding the Keflex and take one capsule twice a day with food. Return to the ER if you're having worsening fevers, vomiting or other worrisome symptoms. All discharge instructions reviewed with patient and/or family. Voiced understanding. Scripts Cephalexin (Cephalexin) 500 Mg Tablet 500 MG PO BID for 7 Days, #14 TAB 0 Refills Prov: ZAID LORENZO 12/08/19 ZAID LORENZO Dec 08, 2019 00:23
[2019-12-08 00:27] LABS: BILIRUBIN,URINE NEGATIVE (NEGATIVE); CLARITY,URINE CLOUDY; COLOR,URINE YELLOW; GLUCOSE, URINE (UA) 3+ (NEGATIVE); KETONES,URINE TRACE (NEGATIVE); LEUKOCYTE ESTERASE ,URINE NEGATIVE (NEGATIVE); NITRITE,URINE NEGATIVE (NEGATIVE); PROTEIN,URINE 3+ (NEGATIVE)
[2019-12-08] MEDS ORDERED: inSUlin (REGULAR) HUMAN 1 UNIT/0.01 ML (CHARGE PER UNIT) SC ONE ×2 (00:30)
[2019-12-08 00:34] LABS: BACTERIA,URINE LARGE /HPF
[2019-12-08] MEDS ORDERED: cefTRIAXone FOR IV USE 1,000 MG in WATER (STERILE) FOR INJECTION 10 ML IV ONE (00:45)
[2019-12-08] MEDS ORDERED: CEPH500T PO (00:51)
[2019-12-08 01:30] VITALS: BP 187/105
== END 2019-12-08 01:30 | disposition home or self-care (01) ==
LOC: EDUNIT# 21:45 → ER 21:46
DX: E11.65 Type 2 diabetes mellitus with hyperglycemia (principal); N39.0 Urinary tract infection, site not specified; I10 Essential (primary) hypertension; E11.40 Type 2 diabetes mellitus with diabetic neuropathy, unspecified; I25.10 Atherosclerotic heart disease of native coronary artery without angina pectoris; I25.2 Old myocardial infarction; E78.00 Pure hypercholesterolemia, unspecified; K59.09 Other constipation; Z86.73 Personal history of transient ischemic attack (TIA), and cerebral infarction without residual deficits; Z88.1 Allergy status to other antibiotic agents; Z88.6 Allergy status to analgesic agent; Z88.8 Allergy status to other drugs, medicaments and biological substances; Z79.82 Long term (current) use of aspirin; Z79.4 Long term (current) use of insulin; Z79.02 Long term (current) use of antithrombotics/antiplatelets; Z82.49 Family history of ischemic heart disease and other diseases of the circulatory system
CPT/HCPCS: 36415; 80053; 81000; 82962; 85025; 87077; 87088

== ENCOUNTER 2020-01-21 08:28 | Emergency (ER) | payer MEDICARE, OTHER ==
[~2020-01-21] VITALS: Ht 170.2 cm; Wt 86.6 kg
[~2020-01-21 08:28] MED LIST changes: +CEPH500T PO
--- NOTE | 2020-01-21 08:49 | ED General ---
General Chief Complaint: Neurological Problems Stated Complaint: STROKE SYMPTOMS Source of Information: Patient Exam Limitations: No Limitations History of Present Illness Date Seen by Provider: Jan 21, 2020 Time Seen by Provider: 08:35 Initial Comments Patient is a 64-year-old female who presents to the emergency room today with a chief complaint of generalized weakness, some left-sided weakness that was more pronounced this morning than right-sided. Patient states that she got up this morning and went to the bathroom, she was unable to get up off the toilet under her own power. She states normally her daughter does have to help her ambulate, she uses a walker secondary to previous stroke that affected her left side. But she states she was so weak that she could not get off the toilet this morning. Patient states that she has been fighting a urinary tract infection, she was diagnosed with 1 about 2 weeks ago and states that she completed an antibiotic course but she states that she is just not felt herself since that time. She denies any chest pain, shortness of breath, congestion. No abdominal pain. She has a long history of kidney stones in the past. She denies any back pain. She denies any fevers or chills. She is a diabetic, her blood sugar was good this morning. All other review of systems reviewed and negative except as stated. Timing/Duration: 1-3 Hours Severity: Mild Allergies and Home Medications Allergies Coded Allergies: celecoxib (Unverified Allergy, Unknown, 03/08/15) levofloxacin (Verified Allergy, Unknown, 03/08/15) isosorbide (Verified Adverse Reaction, Unknown, severe hypotension, 03/08/15) Home Medications Alendronate Sodium 10 Mg Tablet, 10 MG PO DAILY, (Reported) Allopurinol 300 Mg Tablet, 300 MG PO DAILY, (Reported) Aspirin 81 Mg Tablet.dr, 81 MG PO DAILY, (Reported) Atenolol 25 Mg Tablet, 25 MG PO BID, (Reported) Atorvastatin Calcium 80 Mg Tablet, 80 MG PO HS, (Reported) Cephalexin 500 Mg Tablet, 500 MG PO BID Prescribed by: ZAID LORENZO on 12/08/19 0051 Clopidogrel Bisulfate 75 Mg Tablet, 75 MG PO DAILY, (Reported) Docusate Sodium 100 Mg Capsule, 100 MG PO BID, (Reported) Fenofibrate,Micronized 67 Mg Capsule, 67 MG PO HS Prescribed by: JAG KIRKLAND on 08/30/18 1210 Furosemide 20 Mg Tablet, 20 MG PO MoFr, (Reported) Insulin NPH Human Isophane 100 Unit/1 Ml Vial, 66 UNITS SC DAILY, (Reported) Insulin NPH Human Isophane 100 Unit/1 Ml Vial, 77 UNIT SQ HS, (Reported) Insulin Regular, Human 100 Unit/1 Ml Vial, 20 UNIT SC TID, (Reported) Losartan Potassium 50 Mg Tablet, 50 MG PO DAILY, (Reported) Ranolazine 1,000 Mg Tab.er.12h, 1,000 MG PO BID, (Reported) [Zolpidem Tartrate] 5 MG TAB, 5 MG PO HS PRN for INSOMNIA Prescribed by: JAG KIRKLAND on 08/30/18 1210 Patient Home Medication List Home Medication List Reviewed: Yes Review of Systems Review of Systems Constitutional: weakness EENTM: no symptoms reported Respiratory: no symptoms reported Cardiovascular: no symptoms reported Gastrointestinal: abdominal pain (Patient states she has had a little abdominal discomfort related to her urinary tract infection however none currently) Genitourinary: no symptoms reported Musculoskeletal: no symptoms reported Skin: no symptoms reported Psychiatric/Neurological: Pre-Existing Deficit, Weakness (Left arm, left leg) All Other Systems Reviewed Negative Unless Noted: Yes Past Ojhomyo-Jkqqfd-Qxpiuo Hx Patient Social History 2nd Hand Smoke Exposure: No Recent Hopitalizations: No Immunizations Up To Date Tetanus Booster (TDap): Less than 5yrs Date of Pneumonia Vaccine: Jan 17, 2013 Date of Influenza Vaccine: Dec 03, 2012 Seasonal Allergies Seasonal Allergies: No Past Medical History Surgeries: Yes (HYSTERECTOMY 1997, LAP. PRIETO 5-6 YRS. AGO, T&A-49 YRS. 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) Neuropathy, Stroke, Vertigo Reproductive Disorders: No Female Reproductive Disorders: Denies Sexually Transmitted Disease: No HIV/AIDS: No Genitourinary: Yes Kidney Stones, Renal Failure Gastrointestinal: Yes (constipation) Gastroesophageal Reflux, Chronic Constipation Musculoskeletal: Yes (arthritis) Arthritis, Back Injury Endocrine: Yes Diabetes, Insulin dep Chronic Ear Infection Hearing Impairment: Hard of Hearing Cancer: No Psychosocial: No Integumentary: Yes (healing cyst removal) Blood Disorders: No Adverse Reaction/Blood Tranf: No Family Medical History Cancer (lung and ovarian) 09 BROTHER, Onset:30's - 40 09 SISTER, Onset:60 years & older Congenital heart disease (mitral valve prolapse) 09 SISTER 09 SISTER Congestive heart failure 03 FATHER, Onset:60 years & older 03 MOTHER, Onset:50's - 60 09 SISTER, Onset:60 years & older Family history: Arthritis 03 MOTHER, Onset:60 years & older Family history: Diabetes mellitus 03 FATHER, Onset:60 years & older 09 SISTER, Onset:50's - 60 Family history: Gastrointestinal disease 03 FATHER, Onset:50's - 60 Hereditary disease (HTN) 09 SISTER, Onset:40's - 50 History of - disorder (Urinary problems) 09 SISTER, Onset:60 years & older 09 SISTER, Onset:20's - 25 History of - respiratory disease (asthma) 09 SISTER Hypercholesterolemia 09 SISTER, Onset:50's - 60 Psychotic disorder (anxiety) 09 SISTER, Onset:30's - 40 Heart Disease Physical Exam Vital Signs Vital Signs - First Documented 01/21/20 08:28 Temp 35.9 Pulse 59 Resp 28 B/P (MAP) 158/96 (116) Pulse Ox 100 O2 Delivery Room Air Capillary Refill : Height, Weight, BMI Height: 5'6.00" Weight: 220lbs. 10.0oz. 100.074815wx; 29.00 BMI Method:Estimated General Appearance: No Apparent Distress, WD/WN Eyes: Bilateral Eye Normal Inspection, Bilateral Eye PERRL, Bilateral Eye EOMI HEENT: PERRL/EOMI, Normal ENT Inspection Neck: Full Range of Motion Respiratory: Lungs Clear, Normal Breath Sounds, No Accessory Muscle Use, No Respiratory Distress Cardiovascular: Regular Rate, Rhythm, No Murmur Gastrointestinal: Normal Bowel Sounds, Non Tender, Soft Extremity: Normal Capillary Refill, Normal Inspection, Normal Range of Motion, Non Tender Neurologic/Psychiatric: Alert, Oriented x3, No Motor/Sensory Deficits, Normal 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/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, 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 Norm as Tested Skin: Normal Color, Warm/Dry Progress/Results/Core Measures Suspected Sepsis SIRS Temperature: Pulse: Respiratory Rate: Laboratory Tests 01/21/20 08:30: White Blood Count 7.0 Blood Pressure / Mean: Laboratory Tests 01/21/20 08:30: Platelet Count 165 01/21/20 09:46: Creatinine 1.59H Results/Orders Lab Results Laboratory Tests Test 01/21/20 08:30 01/21/20 09:46 Range/Units White Blood Count 7.0 4.3-11.0 10^3/uL Red Blood Count 4.43 3.80-5.11 10^6/uL Hemoglobin 14.4 11.5-16.0 g/dL Hematocrit 43 35-52 % Mean Corpuscular Volume 98 80-99 fL Mean Corpuscular Hemoglobin 33 25-34 pg Mean Corpuscular Hemoglobin Concent 33 32-36 g/dL Red Cell Distribution Width 12.8 10.0-14.5 % Platelet Count 165 130-400 10^3/uL Mean Platelet Volume 12.7 H 9.0-12.2 fL Immature Granulocyte % (Auto) 0 % Neutrophils (%) (Auto) 49 42-75 % Lymphocytes (%) (Auto) 42 12-44 % Monocytes (%) (Auto) 8 0-12 % Eosinophils (%) (Auto) 1 0-10 % Basophils (%) (Auto) 1 0-10 % Neutrophils # (Auto) 3.4 1.8-7.8 10^3/uL Lymphocytes # (Auto) 2.9 1.0-4.0 10^3/uL Monocytes # (Auto) 0.5 0.0-1.0 10^3/uL Eosinophils # (Auto) 0.1 0.0-0.3 10^3/uL Basophils # (Auto) 0.0 0.0-0.1 10^3/uL Immature Granulocyte # (Auto) 0.0 0.0-0.1 10^3/uL Urine Color DARK YELLOW Urine Clarity CLEAR Urine pH 5.5 5-9 Urine Specific [place] 1.025 H 1.016-1.022 Urine Protein 1+ H NEGATIVE Urine Glucose (UA) 1+ H NEGATIVE Urine Ketones NEGATIVE NEGATIVE Urine Nitrite NEGATIVE NEGATIVE Urine Bilirubin NEGATIVE NEGATIVE Urine Urobilinogen 0.2 < = 1.0 MG/DL Urine Leukocyte Esterase TRACE H NEGATIVE Urine RBC (Auto) NEGATIVE NEGATIVE Urine RBC 2-5 H /HPF Urine WBC 5-10 H /HPF Urine Squamous Epithelial Cells 10-25 H /HPF Urine Crystals NONE /LPF Urine Bacteria MODERATE H /HPF Urine Casts NONE /LPF Urine Mucus NEGATIVE /LPF Urine Culture Indicated YES Sodium Level 138 135-145 MMOL/L Potassium Level 4.1 3.6-5.0 MMOL/L Chloride Level 102 98-107 MMOL/L Carbon Dioxide Level 27 21-32 MMOL/L Anion Gap 9 5-14 MMOL/L Blood Urea Nitrogen 19 H 7-18 MG/DL Creatinine 1.59 H 0.60-1.30 MG/DL Estimat Glomerular Filtration Rate 33 BUN/Creatinine Ratio 12 Glucose Level 188 H 70-105 MG/DL Calcium Level 10.1 8.5-10.1 MG/DL My Orders Orders - LAKEISHA DIAZ MD Ct Head Wo (01/21/20 09:11) Ekg Tracing (01/21/20 09:11) Ed Iv/Invasive Line Start (01/21/20 09:11) Cbc With Automated Diff (01/21/20 09:11) Basic Metabolic Panel (01/21/20 09:11) Ua Culture If Indicated (01/21/20 09:11) Urine Culture (01/21/20 08:30) Vital Signs/I&O 01/21/20 08:28 Temp 35.9 Pulse 59 Resp 28 B/P (MAP) 158/96 (116) Pulse Ox 100 O2 Delivery Room Air Capillary Refill : Progress Note : Time: 08:48 Progress Note 64-year-old female presents to the emergency room with a chief complaint of generalized weakness and also more pronounced left-sided weakness than usual. 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 Patient states she has been fighting a urinary tract infection. She looks well, NIH at the time of presentation is a 0. Onset of her symptoms this morning was approximately 650. Evaluation today includes a physical exam, CT scan of the brain, EKG, basic laboratory evaluation including urinalysis. [address] Rodney, the patient's primary care physician. He is comfortable with her discharge and no further work-up regarding the TIA. He will see her in clinic this week and work on some outpatient home health options for her. Patient will be provided with an outpatient caregiver list here from the hospital. She is comfortable with the plan of care. She has no clinical or objective findings at this point which would warrant further evaluation or admission to the hospital. Labs and CT are unremarkable. She is back to her baseline. All questions are sought and answered and she is stable for discharge. ECG Initial ECG Impression Date: Jan 21, 2020 Initial ECG Impression Time: 08:33 Initial ECG Rate: 57 Initial ECG Rhythm: Normal Sinus Initial ECG Intervals: MT Initial ECG Impression: Normal Diagnostic Imaging Diagonstic Imaging: CT Plain Films/CT/US/NM/MRI: head Comments [facility] [place], [place] NAME: CARMELA CARVALHO [facility] REC#: [id number] PT STATUS: REG ER : 1955 PHYSICIAN: LAKEISHA DIAZ MD ADMIT DATE: 01/21/20/ER Draft Date of Exam:01/21/20 CT HEAD WO PROCEDURE: CT head without contrast. TECHNIQUE: Multiple contiguous axial images were obtained through the brain without the use of intravenous contrast. Auto Exposure Controls were utilized during the CT exam to meet ALARA standards for radiation dose reduction. INDICATION: Left-sided weakness. Correlation is made with prior head CT from 05/22/2014. Ventricles and sulci appear stable. No sulcal effacement or midline shift is identified. There is moderate periventricular hypodensity noted consistent with chronic microvascular ischemia. No acute intra-axial or extra-axial hemorrhage is detected. There appears be an old lacunar infarct in the right thalamus. Small old infarct in the right [place] radiata is also noted. No acute findings are seen. Cisterns are patent. Visualized paranasal sinuses are clear. IMPRESSION: Chronic changes. No acute intracranial process is detected. Dictated on workstation # [id number] Dict: 01/21/20 0940 Trans: 01/21/20 0943 [facility] [id number] Interpreted by: HETAL WOODRUFF MD Electronically signed by: Departure Impression Primary Impression: Weakness Additional Impression: TIA (transient ischemic attack) Disposition: 01 HOME, SELF-CARE Condition: Stable Departure-Patient Inst. Decision time for Depature: 12:30 Referrals: PATRICE RODNEY MD (PCP/Family) Primary Care Physician Patient Instructions: Transient Ischemic Attack (DC) Add. Discharge Instructions: Continue your home medications as previously prescribed. Do not miss doses of your Plavix and aspirin. Follow-up with your primary care physician this week, please call him tomorrow for a follow-up appointment. Return to the emergency room for any worsening symptoms, further strokelike symptoms, fevers or other emergent concerning symptoms All discharge instructions reviewed with patient and/or family. Voiced understanding. LAKEISHA DIAZ MD Jan 21, 2020 08:49
[2020-01-21 09:27] LABS: BILIRUBIN,URINE NEGATIVE (NEGATIVE); CLARITY,URINE CLEAR; COLOR,URINE DARK YELLOW; GLUCOSE, URINE (UA) 1+ (NEGATIVE); KETONES,URINE NEGATIVE (NEGATIVE); LEUKOCYTE ESTERASE ,URINE TRACE (NEGATIVE); NITRITE,URINE NEGATIVE (NEGATIVE); PH,URINE 5.5 (5-9); PROTEIN,URINE 1+ (NEGATIVE)
[2020-01-21 09:28] LABS: BASOPHILS % (AUTO) 1 % (0-10); EOSINOPHILS # (AUTO) 0.1 10^3/uL (0.0-0.3); EOSINOPHILS % (AUTO) 1 % (0-10); HEMATOCRIT 43 % (35-52); HEMOGLOBIN 14.4 g/dL (11.5-16.0); LYMPHOCYTES # (AUTO) 2.9 10^3/uL (1.0-4.0); LYMPHOCYTES % (AUTO) 42 % (12-44); MEAN CORPUSCULAR HEMOGLOBIN 33 pg (25-34); MEAN CORPUSCULAR HGB CONC 33 g/dL (32-36); MEAN CORPUSCULAR VOLUME 98 fL (80-99); MEAN PLATELET VOLUME 12.7 fL (9.0-12.2); MONOCYTES # (AUTO) 0.5 10^3/uL (0.0-1.0); MONOCYTES % (AUTO) 8 % (0-12); NEUTROPHILS # (AUTO) 3.4 10^3/uL (1.8-7.8); NEUTROPHILS % (AUTO) 49 % (42-75); PLATELET COUNT 165 10^3/uL (130-400)
[2020-01-21 09:34] LABS: BACTERIA,URINE MODERATE /HPF
--- NOTE | 2020-01-21 09:43 | Diagnostic Imaging Report ---
PROCEDURE: CT head without contrast. TECHNIQUE: Multiple contiguous axial images were obtained through the brain without the use of intravenous contrast. Auto Exposure Controls were utilized during the CT exam to meet ALARA standards for radiation dose reduction. INDICATION: Left-sided weakness. Correlation is made with prior head CT from 05/22/2014. Ventricles and sulci appear stable. No sulcal effacement or midline shift is identified. There is moderate periventricular hypodensity noted consistent with chronic microvascular ischemia. No acute intra-axial or extra-axial hemorrhage is detected. There appears be an old lacunar infarct in the right thalamus. Small old infarct in the right [place] radiata is also noted. No acute findings are seen. Cisterns are patent. Visualized paranasal sinuses are clear. IMPRESSION: Chronic changes. No acute intracranial process is detected. Dictated by: Dictated on workstation # [id number]
[2020-01-21 10:05] LABS: POTASSIUM 4.1 MMOL/L (3.6-5.0)
[2020-01-21 10:06] LABS: CALCIUM 10.1 MG/DL (8.5-10.1)
[2020-01-21 10:11] LABS: CREATININE SERUM 1.59 MG/DL (0.60-1.30)
[2020-01-21 13:00] VITALS: BP 155/71
== END 2020-01-21 13:00 | disposition home or self-care (01) ==
LOC: EDUNIT# 08:28 → ER 08:29
DX: R53.1 Weakness (principal); G45.9 Transient cerebral ischemic attack, unspecified; I25.2 Old myocardial infarction; E11.9 Type 2 diabetes mellitus without complications; I10 Essential (primary) hypertension; E78.00 Pure hypercholesterolemia, unspecified; Z82.49 Family history of ischemic heart disease and other diseases of the circulatory system; Z82.61 Family history of arthritis; Z83.3 Family history of diabetes mellitus; Z80.1 Family history of malignant neoplasm of trachea, bronchus and lung; Z80.41 Family history of malignant neoplasm of ovary; Z88.1 Allergy status to other antibiotic agents; Z88.8 Allergy status to other drugs, medicaments and biological substances; Z79.4 Long term (current) use of insulin; Z79.82 Long term (current) use of aspirin
CPT/HCPCS: 36415; 70450; 80048; 81000; 85025; 87088; 93005

== ENCOUNTER 2020-03-07 13:54 | Observation (INO) | payer MEDICARE, OTHER ==
[~2020-03-07] VITALS: Ht 170 cm; Wt 90.8 kg
--- NOTE | 2020-03-07 13:54 | NUR ---
PT TO ED, DIRECTLY TO CT PER EMS CART 1410-PT BACK TO ED3 PER CART. SYMPTOMS IMPROVING AT THIS TIME. PT ASKING ALL QUESTIONS APPROPRIATELY AT THIS TIME.
[2020-03-07 14:19] LABS: EOSINOPHILS # (AUTO) 0.1 10^3/uL (0.0-0.3); EOSINOPHILS % (AUTO) 1 % (0-10); MEAN CORPUSCULAR VOLUME 98 fL (80-99); MONOCYTES # (AUTO) 0.4 10^3/uL (0.0-1.0); MONOCYTES % (AUTO) 6 % (0-12); WHITE BLOOD COUNT 5.8 10^3/uL (4.3-11.0)
[2020-03-07 14:21] LABS: BASOPHILS % (AUTO) 0 % (0-10); HEMATOCRIT 37 % (35-52); HEMOGLOBIN 12.5 g/dL (11.5-16.0); LYMPHOCYTES # (AUTO) 1.8 10^3/uL (1.0-4.0); LYMPHOCYTES % (AUTO) 31 % (12-44); MEAN CORPUSCULAR HEMOGLOBIN 33 pg (25-34); MEAN CORPUSCULAR HGB CONC 34 g/dL (32-36); MEAN PLATELET VOLUME 11.7 fL (9.0-12.2); NEUTROPHILS # (AUTO) 3.5 10^3/uL (1.8-7.8); NEUTROPHILS % (AUTO) 61 % (42-75); PLATELET COUNT 140 10^3/uL (130-400)
--- NOTE | 2020-03-07 14:22 | ED Neurological Problem ---
General Chief Complaint: Neuro-Stroke Like Symptoms Stated Complaint: STROKE LIKE SYMPTOMS Source: patient Exam Limitations: no limitations History of Present Illness Date Seen by Provider: Mar 07, 2020 Time Seen by Provider: 13:51 Initial Comments Patient arrives ER by EMS with chief complaint that about 1:00 this afternoon she started to slide out of bed and had weakness in her right side of her upper and lower extremities. Difficulty expressing herself but no slurred speech or facial droop. She has a history of stroke with some residual weakness on her left side and has ambulated well with a walker although she was unable to bear any weight today. She says she had a fall and struck her head about 1 week ago but no history of bleed. She is on Plavix but no blood thinners. Allergies and Home Medications Allergies Coded Allergies: celecoxib (Unverified Allergy, Unknown, 03/08/15) cinacalcet (Verified Allergy, Unknown, 03/07/20) clarithromycin (Verified Allergy, Unknown, 03/07/20) codeine (Verified Allergy, Unknown, 03/07/20) hydrocodone (Verified Allergy, Unknown, 03/07/20) levofloxacin (Verified Allergy, Unknown, 03/08/15) isosorbide (Verified Adverse Reaction, Unknown, severe hypotension, 03/08/15) Home Medications Alendronate Sodium 10 Mg Tablet, 10 MG PO DAILY, (Reported) Allopurinol 300 Mg Tablet, 300 MG PO DAILY, (Reported) Aspirin 81 Mg Tablet.dr, 81 MG PO DAILY, (Reported) Atenolol 25 Mg Tablet, 25 MG PO BID, (Reported) Atorvastatin Calcium 80 Mg Tablet, 80 MG PO HS, (Reported) Clopidogrel Bisulfate 75 Mg Tablet, 75 MG PO DAILY, (Reported) Docusate Sodium 100 Mg Capsule, 100 MG PO BID, (Reported) Fenofibrate,Micronized 67 Mg Capsule, 54 MG PO HS Prescribed by: SARIAH VIVAR on 03/07/20 9782 Furosemide 20 Mg Tablet, 20 MG PO MoFr, (Reported) Insulin NPH Human Isophane 100 Unit/1 Ml Vial, 66 UNITS SC DAILY, (Reported) Insulin NPH Human Isophane 100 Unit/1 Ml Vial, 77 UNIT SQ HS, (Reported) Insulin Regular, Human 100 Unit/1 Ml Vial, 20 UNIT SC TID, (Reported) Losartan Potassium 50 Mg Tablet, 50 MG PO DAILY, (Reported) Magnesium Oxide 400 Mg Tablet, 400 MG PO BID Prescribed by: SARIAH VIVAR on 03/07/201755 Meclizine HCl 25 Mg Tablet, 25 MG PO PRN Prescribed by: SARIAH VIVAR on 03/07/201755 Nitroglycerin 0.4 Mg Tab.subl, 0.4 MG SL UD PRN for CHEST PAIN Prescribed by: SARIAH VIVAR on 03/07/201755 Ranolazine 1,000 Mg Tab.er.12h, 1,000 MG PO BID, (Reported) [Zolpidem Tartrate] 5 MG TAB, 5 MG PO HS PRN for INSOMNIA Prescribed by: JAG KIRKLAND on 08/30/18 1210 Patient Home Medication List Home Medication List Reviewed: Yes Review of Systems Review of Systems Constitutional: No chills, No diaphoresis Eyes: Denies Blindness, Denies Blurred Vision Ears, Nose, Mouth, Throat: denies ear pain, denies ear discharge Respiratory: No cough, No short of breath Cardiovascular: No chest pain, No Hx of Intervention, No palpitations Gastrointestinal: No abdominal pain, No nausea, No vomiting Genitourinary: No discharge, No dysuria Musculoskeletal: No back pain, No joint pain Psychiatric/Neurological: See HPI; Denies Anxiety, Denies Depressed All Other Systems Reviewed Negative Unless Noted: Yes Past Gkjtjab-Kxoxkq-Pbjvwk Hx Patient Social History 2nd Hand Smoke Exposure: No Recent Hopitalizations: No Immunizations Up To Date Tetanus Booster (TDap): Less than 5yrs Date of Pneumonia Vaccine: Jan 17, 2013 Date of Influenza Vaccine: Dec 03, 2012 Seasonal Allergies Seasonal Allergies: No Past Medical History Surgeries: Yes (HYSTERECTOMY 1997, LAP. PRIETO 5-6 YRS. AGO, T&A-49 YRS. AGO) Gallbladder, Hysterectomy, Orthopedic, Tonsillectomy Respiratory: Yes (cpap at hs) Sleep Apnea Currently Using CPAP: Yes Cardiac: Yes (SVT, CT 2013) Cardiomyopathy, Coronary Artery Disease, Heart Attack, High Cholesterol, Hypertension Neurological: Yes (hardening of artieries in brain) Neuropathy, Stroke, Vertigo Reproductive Disorders: No Female Reproductive Disorders: Denies Sexually Transmitted Disease: No HIV/AIDS: No Genitourinary: Yes Kidney Stones, Renal Failure Gastrointestinal: Yes (constipation) Gastroesophageal Reflux, Chronic Constipation Musculoskeletal: Yes (arthritis) Arthritis, Back Injury Endocrine: Yes Diabetes, Insulin dep Chronic Ear Infection Hearing Impairment: Hard of Hearing Cancer: No Psychosocial: No Integumentary: Yes (healing cyst removal) Blood Disorders: No Adverse Reaction/Blood Tranf: No Family Medical History Cancer (lung and ovarian) 09 BROTHER, Onset:30's - 40 09 SISTER, Onset:60 years & older Congenital heart disease (mitral valve prolapse) 09 SISTER 09 SISTER Congestive heart failure 03 FATHER, Onset:60 years & older 03 MOTHER, Onset:50's - 60 09 SISTER, Onset:60 years & older Family history: Arthritis 03 MOTHER, Onset:60 years & older Family history: Diabetes mellitus 03 FATHER, Onset:60 years & older 09 SISTER, Onset:50's - 60 Family history: Gastrointestinal disease 03 FATHER, Onset:50's - 60 Hereditary disease (HTN) 09 SISTER, Onset:40's - 50 History of - disorder (Urinary problems) 09 SISTER, Onset:60 years & older 09 SISTER, Onset:20's - 25 History of - respiratory disease (asthma) 09 SISTER Hypercholesterolemia 09 SISTER, Onset:50's - 60 Psychotic disorder (anxiety) 09 SISTER, Onset:30's - 40 Heart Disease Physical Exam Vital Signs Vital Signs - First Documented 03/07/20 13:54 Temp 36.6 Pulse 65 Resp 18 B/P (MAP) 132/82 (99) Pulse Ox 95 O2 Delivery Room Air Capillary Refill : Height, Weight, BMI Height: 5'6.00" Weight: 220lbs. 10.0oz. 100.889382zs; 29.00 BMI Method:Estimated General Appearance: WD/WN, mild distress HEENT: PERRL/EOMI, pharynx normal Neck: full range of motion, normal inspection Respiratory: lungs clear, normal breath sounds, no respiratory distress, no accessory muscle use Cardiovascular: normal peripheral pulses, regular rate, rhythm Peripheral Pulses: 2+ Radial Pulses (R), 2+ Radial Pulses (L) Gastrointestinal: normal bowel sounds, non tender, soft Extremities: normal range of motion, non-tender, normal capillary refill Neurologic/Psychiatric: alert, normal mood/affect, oriented x 3 Crainal Nerves: normal hearing, normal speech, PERRL Coordination/Gait: normal finger to nose Motor/Sensory: no sensory deficit, pronator drift (R), pronator drift (L) Skin: normal color, warm/dry Stroke Onset of Symptoms Date of Onset of Symptoms: Mar 07, 2020 Time of Symptom Onset: 13:00 Onset of Symptoms: Yes NIH Stroke Scale Assessment Select: Initial Level of Consciousness: 0=Alert (0), Level of Consciousness- Questions: 2=Answer neither question (2), LOC Commands: 0=Performs both tasks (0), Gaze: Normal (0), Visual Paredes: 0=No visual loss (0), Facial Movement (Facial Paresis): 1=Minor paralysis (1), Motor Function-Arms Right: 2=Some effort/gravity (2), Motor Function-Arms Left: 1=Drift (1), Motor Function- Legs Right: 2=Some effort/gravity (2), Motor Function-Legs Left: 1=Drift (1), Limb Ataxia: 0=Absent (0), Sensory: 0=Normal:no loss (0), Best Language: 1= Mild to moderat aphasia (1), Dysarthria: 0=Normal (0), Extinction & Inattention: 0=No abnormality (0), Total: 10 Stroke Thrombolytic Exclusion Age 18 or Over: Yes Acute intenal hemorrhage: No History of CVA: Yes Uncontrolled Coagulation Defec: No Intracranial Hemorrhage: No Severe Hypertension: No GI or Bleed: No Subarachnoid Hemorrhage: No Intracranial Neoplasm/Aneurysm: No Oral Anticoagulants: No Surgery or Trauma: Yes (fall last week) Puncture of Non-Compressible V: No Recent CPR: No Diabetic Hemorrhagic Retinopat: No Organ Biopsy: No Recent Obstetric Delivery: No Glucose: No (268) Significant Hepatic Dysfunctio: No NIH Stoke Scale >22: No Bacterial Endocarditis: No Pericarditis: No Improving Symptoms: Yes Platelets: No TPA Contraindication: Yes (Rapidly improving symptoms) Progress/Results/Core Measures Results/Orders Lab Results Laboratory Tests Test 03/07/20 14:09 03/07/20 15:19 Range/Units White Blood Count 5.8 4.3-11.0 10^3/uL Red Blood Count 3.78 L 3.80-5.11 10^6/uL Hemoglobin 12.5 11.5-16.0 g/dL Hematocrit 37 35-52 % Mean Corpuscular Volume 98 80-99 fL Mean Corpuscular Hemoglobin 33 25-34 pg Mean Corpuscular Hemoglobin Concent 34 32-36 g/dL Red Cell Distribution Width 13.3 10.0-14.5 % Platelet Count 140 130-400 10^3/uL Mean Platelet Volume 11.7 9.0-12.2 fL Immature Granulocyte % (Auto) 0 % Neutrophils (%) (Auto) 61 42-75 % Lymphocytes (%) (Auto) 31 12-44 % Monocytes (%) (Auto) 6 0-12 % Eosinophils (%) (Auto) 1 0-10 % Basophils (%) (Auto) 0 0-10 % Neutrophils # (Auto) 3.5 1.8-7.8 10^3/uL Lymphocytes # (Auto) 1.8 1.0-4.0 10^3/uL Monocytes # (Auto) 0.4 0.0-1.0 10^3/uL Eosinophils # (Auto) 0.1 0.0-0.3 10^3/uL Basophils # (Auto) 0.0 0.0-0.1 10^3/uL Immature Granulocyte # (Auto) 0.0 0.0-0.1 10^3/uL Prothrombin Time 14.2 12.2-14.7 SEC INR Comment 1.1 0.8-1.4 Activated Partial Thromboplast Time 22 L 24-35 SEC D-Dimer 0.83 H 0.00-0.49 UG/ML Sodium Level 136 135-145 MMOL/L Potassium Level 4.7 3.6-5.0 MMOL/L Chloride Level 103 98-107 MMOL/L Carbon Dioxide Level 25 21-32 MMOL/L Anion Gap 8 5-14 MMOL/L Blood Urea Nitrogen 28 H 7-18 MG/DL Creatinine 1.91 H 0.60-1.30 MG/DL Estimat Glomerular Filtration Rate 26 BUN/Creatinine Ratio 15 Glucose Level 308 H 70-105 MG/DL Glucometer 268 H 70-110 MG/DL Calcium Level 10.2 H 8.5-10.1 MG/DL Corrected Calcium 10.4 H 8.5-10.1 MG/DL Total Bilirubin 0.8 0.1-1.0 MG/DL Aspartate Amino Transf (AST/SGOT) 17 5-34 U/L Alanine Aminotransferase (ALT/SGPT) 22 0-55 U/L Alkaline Phosphatase 67 40-136 U/L Troponin I < 0.028 <0.028 NG/ML Total Protein 6.2 L 6.4-8.2 GM/DL Albumin 3.7 3.2-4.5 GM/DL Urine Color YELLOW Urine Clarity CLEAR Urine pH 6.0 5-9 Urine Specific [place] 1.020 1.016-1.022 Urine Protein 1+ H NEGATIVE Urine Glucose (UA) 2+ H NEGATIVE Urine Ketones NEGATIVE NEGATIVE Urine Nitrite NEGATIVE NEGATIVE Urine Bilirubin NEGATIVE NEGATIVE Urine Urobilinogen 0.2 < = 1.0 MG/DL Urine Leukocyte Esterase NEGATIVE NEGATIVE Urine RBC (Auto) NEGATIVE NEGATIVE Urine RBC NONE /HPF Urine WBC RARE /HPF Urine Crystals NONE /LPF Urine Bacteria NEGATIVE /HPF Urine Casts NONE /LPF Urine Mucus NEGATIVE /LPF Urine Culture Indicated NO My Orders Orders - ZAID LORENZO Ct Head Wo-R/O Stroke (03/07/20 13:58) Cbc With Automated Diff (03/07/20 14:13) Protime With Inr (03/07/20 14:13) Partial Thromboplastin Time (03/07/20 14:13) Comprehensive Metabolic Panel (03/07/20 14:13) Fibrin Degradation Products (03/07/20 14:13) Troponin I (03/07/20 14:13) Ua Culture If Indicated (03/07/20 14:13) Chest 1 View, Ap/Pa Only (03/07/20 14:13) Catheter(Urinary) Insert & Ass 03,15 (03/07/20 14:13) Ekg Tracing (03/07/20 14:13) Nothing By Mouth (03/07/20 Lunch) Accucheck Stat ONCE (03/07/20 14:13) Ed Iv/Invasive Line Start (03/07/20 14:13) Ed Iv/Invasive Line Start (03/07/20 14:13) Vital Signs Stroke Patient Q15M (03/07/20 14:13) O2 (03/07/20 14:13) Intake & Output 06,14,22 (03/07/20 14:13) Monitor-Rhythm Ecg Trace Only (03/07/20 14:13) Dysphagia Screening Tool (03/07/20 14:13) Post Thrombolytic Adminstratio (03/07/20 14:13) Lipid Panel (03/08/20 06:00) Iohexol Injection (Omnipaque 350 Mg/Ml 1 (03/07/20 14:30) Received Contrast (Hold Metformin- Contr (03/07/20 14:30) Ns (Ivpb) (Sodium Chloride 0.9% Ivpb Bag (03/07/20 14:30) Ed Iv/Invasive Line Start (03/07/20 15:37) Ns Iv 1000 Ml (Sodium Chloride 0.9%) (03/07/20 15:45) Vital Signs/I&O 03/07/20 13:54 Temp 36.6 Pulse 65 Resp 18 B/P (MAP) 132/82 (99) Pulse Ox 95 O2 Delivery Room Air FSBG Bedside Testing Finger Stick Blood Glucose: 268 Blood Glucose Action Taken: RN AND PROVIDER NOTIFIED Progress Progress Note : Time: 16:22 Progress Note Shortly after her CT revealed no bleed the patient symptoms resolved and she had no residual effects. NIH was 2 which is her baseline NIH from previous strokes. She had no new symptoms. Initial ECG Impression Date: Mar 07, 2020 Initial ECG Impression Time: 14:32 Initial ECG Rate: 65 Initial ECG Rhythm: Normal Sinus Initial ECG Intervals: Normal Initial ECG Impression: Normal Initial ECG Comparisson: No Previous ECG Available Comment Normal sinus rhythm without clinically relevant ST elevation or depression. Diagnostic Imaging Diagonstic Imaging: Xray Plain Films/CT/US/NM/MRI: chest Comments NAME: MAIACARMELA [facility] (formerly [employer]) REC#: [id number] PT STATUS: REG ER : 1955 PHYSICIAN: ZAID LORENZO MD ADMIT DATE: 03/07/20/ER Signed Date of Exam:03/07/20 CHEST 1 VIEW, AP/PA ONLY Indication: Possible stroke. Findings: The lungs are clear. The heart size and vascularity within normal limits. No failure, effusion or pneumothorax. Impression: Negative Dictated by: Dictated on workstation # [id number] Dict: 03/07/20 1427 Trans: 03/07/20 1450 [facility] [id number] Interpreted by: LUTHER DAWN Electronically signed by: LUTHER DAWN 03/07/20 1450 Reviewed: Reviewed by Md Diagonstic Imaging: CT Plain Films/CT/US/NM/MRI: head Comments [facility], [place] NAME: CARMELA CARVALHO [employer] (formerly [employer]) REC#: [id number] PT STATUS: REG ER : 1955 PHYSICIAN: ZAID LORENZO MD ADMIT DATE: 03/07/20/ER Signed Date of Exam:03/07/20 CT HEAD WO-R/O STROKE PROCEDURE: CT head wo r/o stroke. TECHNIQUE: Multiple contiguous axial images were obtained through the brain without the use of intravenous contrast. Auto Exposure Controls were utilized during the CT exam to meet ALARA standards for radiation dose reduction. INDICATION: Neurological deficit. Exam compared with study 01/21/2020. FINDINGS: An old right thalamic lacunar infarct is a stable chronic finding noted. Atrophy and white matter disease stable and chronic. A chronic periventricular white matter lacunar infarct also stable. No new site of abnormal parenchymal attenuation. There was no hemorrhage. There is intracranial atherosclerotic vascular calcifications. No loss of the cortical tapia-white matter differentiations. No evidence for elevated intracerebral pressures. No mass or mass effect. IMPRESSION: Atrophy, white matter disease and old lacunar infarct stable from comparisons. No focal or generalized cerebral edema, hemorrhage or acute findings. Dictated by: Dictated on workstation # [id number] Dict: 03/07/20 1410 Trans: 03/07/20 1450 [facility] [id number] Interpreted by: LUTHER DAWN Electronically signed by: LUTHER DAWN 03/07/20 1450 Reviewed: Reviewed by Me Consults : Consults Notes Dr. Nye: [facility] neurology recommends no TPA if all of her new symptoms of stroke have completely resolved as this may have been a recannulization situation. However if she has even one-point for new symptoms he would recommend TPA. He suspects that this is a TIA and she should merit usual observation. MRI/MRA or ultrasound of the carotids recommended on a nonemergent basis. Departure Communication (Admissions) Time/Spoke to Admitting Phy: 15:00 Dr. Kirkland accepts the patient to the stepdown unit for TIA stroke work-up. Impression Primary Impression: CVA (cerebral vascular accident) Qualified Codes: I63.9 - Cerebral infarction, unspecified Additional Impression: TIA (transient ischemic attack) Disposition: ADMITTED INPATIENT Condition: Stable Admissions Decision to Admit Reason: Admit from ER (General) Decision to Admit/Date: Mar 07, 2020 Time/Decision to Admit Time: 14:45 Departure-Patient Inst. Referrals: PATRICE RODNEY MD (PCP/Family) Primary Care Physician Scripts Magnesium Oxide (Magnesium Oxide) 400 Mg Tablet 400 MG PO BID for 30 Days, TAB Prov: JAG KIRKLAND DO 03/07/20 Nitroglycerin (Nitroglycerin) 0.4 Mg Tab.subl 0.4 MG SL UD PRN for CHEST PAIN for 30 Days, TAB Prov: JAG KIRKLAND DO 03/07/20 Meclizine HCl (Meclizine HCl) 25 Mg Tablet 25 MG PO PRN for 30 Days, TAB Prov: JAG KIRKLAND DO 03/07/20 Fenofibrate,Micronized (Fenofibrate) 67 Mg Capsule 54 MG PO HS, #30 CAP Prov: JAG KIRKLAND DO 03/07/20 ZAID LORENZO Mar 07, 2020 14:22
[2020-03-07 14:23] LABS: ALBUMIN 3.7 GM/DL (3.2-4.5); CHLORIDE 103 MMOL/L (98-107); POTASSIUM 4.7 MMOL/L (3.6-5.0); SODIUM 136 MMOL/L (135-145)
[2020-03-07 14:24] LABS: CALCIUM 10.2 MG/DL (8.5-10.1)
[2020-03-07 14:25] LABS: GLUCOSE 308 MG/DL (70-105); TOTAL PROTEIN 6.2 GM/DL (6.4-8.2)
[2020-03-07 14:26] LABS: CARBON DIOXIDE 25 MMOL/L (21-32)
[2020-03-07 14:27] LABS: BILIRUBIN,TOTAL 0.8 MG/DL (0.1-1.0)
[2020-03-07 14:29] LABS: ALKALINE PHOSPHATASE 67 U/L (40-136); CREATININE SERUM 1.91 MG/DL (0.60-1.30); FIBRIN DEGRADATION PRODUCTS 0.83 UG/ML (0.00-0.49); GFR ESTIMATED 26; INR 1.1 (0.8-1.4); PROTHROMBIN TIME PATIENT 14.2 SEC (12.2-14.7)
[2020-03-07 14:30] LABS: BUN/CREATININE RATIO 15
[2020-03-07] MEDS ORDERED: NS 100 ML (IVPB) BAG IV ONE (14:30)
[2020-03-07] MEDS ORDERED: IOHEXOL 350 MG/ML 100 ML (OMNIPAQUE 350) VIAL IV ONE (14:30)
[2020-03-07] MEDS ORDERED: HOLD METFORMIN - RECEIVED CONTRAST 20 ML VIAL IV SCH (14:30)
--- NOTE | 2020-03-07 14:30 | Diagnostic Imaging Report ---
Indication: Possible stroke. Findings: The lungs are clear. The heart size and vascularity within normal limits. No failure, effusion or pneumothorax. Impression: Negative Dictated by: Dictated on workstation # [id number]
[2020-03-07 14:32] LABS: ALANINE AMINOTRANSFERASE 22 U/L (0-55)
[2020-03-07 15:25] LABS: BILIRUBIN,URINE NEGATIVE (NEGATIVE); CLARITY,URINE CLEAR; COLOR,URINE YELLOW; GLUCOSE, URINE (UA) 2+ (NEGATIVE); KETONES,URINE NEGATIVE (NEGATIVE); LEUKOCYTE ESTERASE ,URINE NEGATIVE (NEGATIVE); NITRITE,URINE NEGATIVE (NEGATIVE); PROTEIN,URINE 1+ (NEGATIVE)
[2020-03-07 15:31] LABS: BACTERIA,URINE NEGATIVE /HPF; WBC,URINE RARE /HPF
[2020-03-07] MEDS ORDERED: NS IV 1000 ML 1,000 ML IV SCH (15:45)
--- NOTE | 2020-03-07 16:56 | History & Physical-Hospitalist ---
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 Right sided weakness and facial droop resolved by time w/u completed. [facility] CVA center notified and not tPA indicated. Patient appears to be very declined since last seen by this examiner. PCP is Dr Peralta. Source: patient Exam Limitations: clinical condition Date Seen 03/07/20 Time Seen by a Provider: 14:00 Attending Physician Teressa Goodrich DO PCP Amauri Peralta MD Referring Physician Date of Admission Mar 07, 2020 at 16:15 Home Medications & Allergies Home Medications Reviewed patient Home Medication Reconciliation performed by pharmacy medication reconciliations preventative maintenance technician and/or nursing. Patients Allergies have been reviewed. Allergies Allergies Coded Allergies celecoxib (Unverified Allergy, Unknown, 03/08/15) cinacalcet (Verified Allergy, Unknown, 03/07/20) clarithromycin (Verified Allergy, Unknown, 03/07/20) codeine (Verified Allergy, Unknown, 03/07/20) hydrocodone (Verified Allergy, Unknown, 03/07/20) levofloxacin (Verified Allergy, Unknown, 03/08/15) isosorbide (Verified Adverse Reaction, Unknown, severe hypotension, 03/08/15) Past Dnysmtg-Pzhdoc-Lnlsqj Hx Past Med/Social Hx: Reviewed Nursing Past Med/Soc Hx, Reviewed and Corrections made Patient Social History Employed/Student: unemployed Alcohol Use: Denies Use Recreational Drug Use: No Smoking Status: Never a Smoker 2nd Hand Smoke Exposure: No Recent Foreign Travel: No Contact w/other who traveled: No Recent Hopitalizations: No Recent Infectious Disease Expo: No Immunizations Up To Date Tetanus Booster (TDap): Less than 5yrs Date of Pneumonia Vaccine: Jan 17, 2013 Date of Influenza Vaccine: Dec 03, 2012 Seasonal Allergies Seasonal Allergies: No Past Medical History Surgeries: Gallbladder, Hysterectomy, Orthopedic, Tonsillectomy Respiratory: Sleep Apnea Currently Using CPAP: Yes Cardiac: Cardiomyopathy, Coronary Artery Disease, Heart Attack, High Cholesterol, Hypertension Neurological: Neuropathy, Stroke, Vertigo Reproductive: No Sexually Transmitted Disease: No HIV/AIDS: No Female Reproductive Disorders: Denies Genitourinary: Kidney Stones, Renal Failure Gastrointestinal: Gastroesophageal Reflux, Chronic Constipation Gastroparesis Musculoskeletal: Arthritis, Back Injury Endocrine: Diabetes, Insulin dep HEENT: Chronic Ear Infection Hearing Impairment: Hard of Hearing History of Blood Disorders: No Adverse Reaction to Blood [place]: No Family History Cancer (lung and ovarian) 09 BROTHER, Onset:30's - 40 09 SISTER, Onset:60 years & older Congenital heart disease (mitral valve prolapse) 09 SISTER 09 SISTER Congestive heart failure 03 FATHER, Onset:60 years & older 03 MOTHER, Onset:50's - 60 09 SISTER, Onset:60 years & older Family history: Arthritis 03 MOTHER, Onset:60 years & older Family history: Diabetes mellitus 03 FATHER, Onset:60 years & older 09 SISTER, Onset:50's - 60 Family history: Gastrointestinal disease 03 FATHER, Onset:50's - 60 Hereditary disease (HTN) 09 SISTER, Onset:40's - 50 History of - disorder (Urinary problems) 09 SISTER, Onset:60 years & older 09 SISTER, Onset:20's - 25 History of - respiratory disease (asthma) 09 SISTER Hypercholesterolemia 09 SISTER, Onset:50's - 60 Psychotic disorder (anxiety) 09 SISTER, Onset:30's - 40 Heart Disease Review of Systems Constitutional: see HPI, malaise, weakness Psychiatric/Neurological: Numbness, Paresthesia, Weakness Physical Exam Physical Exam Vital Signs Vital Signs - First Documented 03/07/20 13:54 Temp 36.6 Pulse 65 Resp 18 B/P (MAP) 132/82 (99) Pulse Ox 95 O2 Delivery Room Air Capillary Refill : Less Than 3 Seconds Height, Weight, BMI Height: 5'6.00" Weight: 220lbs. 10.0oz. 100.443445au; 29.00 BMI Method:Estimated General Appearance: No Apparent Distress Eyes: Right Eye Normal Inspection, Right Eye PERRL HEENT: PERRL/EOMI, Normal ENT Inspection, Pharynx Normal, Moist Mucous Membranes Neck: Full Range of Motion, Normal Inspection, Non Tender Respiratory: Chest Non Tender, Lungs Clear, Normal Breath Sounds, No Accessory Muscle Use, No Respiratory Distress Cardiovascular: Regular Rate, Rhythm, No Edema, No Gallop, No JVD, No Murmur, Normal Peripheral Pulses Gastrointestinal: Normal Bowel Sounds, No Organomegaly, No Pulsatile Mass, Non Tender, Soft Back: Normal Inspection, No CVA Tenderness, No Vertebral Tenderness Extremity: Normal Capillary Refill, Normal Inspection, Normal Range of Motion, Non Tender, No Calf Tenderness, No Pedal Edema Neurologic/Psychiatric: Alert, Oriented x3, No Motor/Sensory Deficits, Depressed Affect, Facial Droop, Motor Weakness (subtle right sided) Skin: Normal Color, Warm/Dry Lymphatic: No Adenopathy Results Results/Procedures Labs Laboratory Tests 03/07/20 14:09 Patient resulted labs reviewed. 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
[2020-03-07 17:13] VITALS: BP 143/85
[2020-03-07 17:30] VITALS: BP 143/85
[2020-03-07] MEDS ORDERED: NITR0.4T39 SL (17:56)
[2020-03-07] MEDS ORDERED: MECL-149 PO (17:56)
[2020-03-07] MEDS ORDERED: MAGN400T8 PO (17:56)
[2020-03-07] MEDS ORDERED: FENO67CA PO (17:56)
[2020-03-07 20:00] VITALS: BP 143/88
[2020-03-07] MEDS ORDERED: ACETAMINOPHEN 500 MG TAB (TYLENOL) PO PRN ×2 (20:45→21:15)
[2020-03-07] MEDS ORDERED: ZOLPIDEM 5 MG (AMBIEN) TAB PO PRN (20:45)
[2020-03-07] MEDS ORDERED: inSUlin NPH (NovoLIN N) 1 UNIT/0.01 ML (CHARGE PER UNIT) SQ SCH (21:00)
[2020-03-07] MEDS ORDERED: ALPRAZolam 0.25 MG (XANAX) TAB PO PRN (21:15)
[2020-03-07] MEDS ORDERED: MELATONIN 3 MG TABLET PO PRN (21:15)
[2020-03-07] MEDS ORDERED: LOPERAMIDE 2 MG (IMODIUM) TABLET PO PRN (21:15)
[2020-03-07] MEDS ORDERED: ONDANSETRON 4 MG/2 ML (SDV) Z0FRAN IVP PRN (21:15)
[2020-03-07] MEDS ORDERED: DOCUSATE SODIUM 100 MG (COLACE) CAP PO PRN (21:15)
[2020-03-07] MEDS ORDERED: ENOXAPARIN 40 MG/0.4 ML (LOVENOX) SYR SC SCH (21:15)
[2020-03-07] MEDS ORDERED: CALCIUM CARBONATE 500 MG (TUMS) TAB.CHEW PO PRN (21:15)
[2020-03-07] MEDS ORDERED: diphenhydrAMINE 25 MG TAB (BENADRYL) PO PRN (21:15)
[2020-03-07] MEDS: DOCUSATE SODIUM 100 MG (COLACE) CAP PO SCH (21:24)
[2020-03-07] MEDS: ATENOLOL 25 MG (TENORMIN) TAB PO SCH (21:24)
[2020-03-07] MEDS: inSUlin ASPART (NovoLOG) 1 UNIT/0.01 ML (CHARGE PER UNIT) SC SCH (21:25)
[2020-03-07] MEDS: RANOLAZINE ER 500 MG TAB (RANEXA) PO SCH (21:25)
[2020-03-07] MEDS ORDERED: ENOXAPARIN 40 MG/0.4 ML (LOVENOX) SYR ONE (21:29)
[2020-03-07 23:42] VITALS: BP 139/82
[2020-03-08 03:21] VITALS: BP 129/72
[2020-03-08 03:38] LABS: BASOPHILS % (AUTO) 0 % (0-10); HEMOGLOBIN 11.7 g/dL (11.5-16.0); MEAN PLATELET VOLUME 11.3 fL (9.0-12.2); MONOCYTES # (AUTO) 0.5 10^3/uL (0.0-1.0)
[2020-03-08 03:40] LABS: EOSINOPHILS # (AUTO) 0.1 10^3/uL (0.0-0.3); EOSINOPHILS % (AUTO) 1 % (0-10); HEMATOCRIT 34 % (35-52); LYMPHOCYTES # (AUTO) 1.8 10^3/uL (1.0-4.0); LYMPHOCYTES % (AUTO) 30 % (12-44); MEAN CORPUSCULAR HEMOGLOBIN 33 pg (25-34); MEAN CORPUSCULAR HGB CONC 34 g/dL (32-36); MEAN CORPUSCULAR VOLUME 97 fL (80-99); MONOCYTES % (AUTO) 8 % (0-12); NEUTROPHILS # (AUTO) 3.6 10^3/uL (1.8-7.8); NEUTROPHILS % (AUTO) 60 % (42-75); PLATELET COUNT 142 10^3/uL (130-400)
[2020-03-08 03:57] LABS: ALBUMIN 3.5 GM/DL (3.2-4.5); POTASSIUM 4.3 MMOL/L (3.6-5.0)
[2020-03-08 03:58] LABS: CALCIUM 9.8 MG/DL (8.5-10.1)
[2020-03-08 04:00] LABS: TOTAL PROTEIN 5.8 GM/DL (6.4-8.2)
[2020-03-08 04:01] LABS: BILIRUBIN,TOTAL 0.4 MG/DL (0.1-1.0)
[2020-03-08 04:03] LABS: CREATININE SERUM 1.59 MG/DL (0.60-1.30)
[2020-03-08] MEDS: inSUlin ASPART (NovoLOG) 1 UNIT/0.01 ML (CHARGE PER UNIT) SC SCH (05:27)
[2020-03-08 08:00] VITALS: BP 153/88
--- NOTE | 2020-03-08 08:47 | Diagnostic Imaging Report ---
PROCEDURE: MR imaging of the brain without contrast. TECHNIQUE: Multiplanar, multisequence MR imaging of the brain was performed without contrast. INDICATION: Focal neurologic deficits. Concern for stroke. COMPARISON: CT head on 03/07/2020. MRI brain on 07/07/2013. FINDINGS: No acute ischemia, mass, or hemorrhage. Focal and confluent chronic microvascular disease is seen in the periventricular and subcortical white matter. An old lacunar infarct is seen in the right thalamus. The ventricles and cortical sulci are mildly prominent. The basilar cisterns are symmetric and unremarkable. The sellar and suprasellar regions have a normal appearance. The brainstem and posterior fossa are unremarkable. A small amount of mucosal thickening is seen in the paranasal sinuses. A small left mastoid effusion is present. The globes and orbits are symmetric and unremarkable. The scalp and calvarium have a normal appearance. IMPRESSION: 1. No acute ischemia, mass, or hemorrhage. 2. Chronic lacunar infarct in the right thalamus. 3. Mild parenchymal volume loss with chronic microvascular disease. These findings have progressed since the prior MRI brain from 2013. Dictated by: Dictated on workstation # [id number]
[2020-03-08] MEDS ORDERED: ASPIRIN E.C. 325 MG (ECOTRIN) TABLET PO SCH (09:00)
[2020-03-08] MEDS ORDERED: CLOPIDOGREL 75 MG (PLAVIX) TABLET PO SCH (09:00)
[2020-03-08] MEDS ORDERED: SENNA W/DOCUSATE (SENOKOT S) TABLET PO SCH (09:00)
[2020-03-08] MEDS ORDERED: inSUlin NPH (NovoLIN N) 1 UNIT/0.01 ML (CHARGE PER UNIT) SQ SCH (09:00)
--- NOTE | 2020-03-08 09:14 | ST Cognitive Linguistic Eval ---
Speech Evaluation-General Medical Diagnosis CVA Onset Date: Mar 08, 2020 Therapy Diagnosis Therapy Diagnosis: Cognitive-communication Referral Referring Physician: Dr. Goodrich Medical History Pertinent Medical History: Arthritis, CAD, CVA, DM, HTN, VT, Neuropathy Reviewed History: Yes Social History Current Living Status: Alone Speech PLF-Current Status Prior Level of Function Patient lives in her own home where she was independent for her daily needs. She did have a CVA in 2019. Subjective Patient was pleasant and cooperative with the assessment. Language Eval: Auditory Comprehends Simple Yes/No Ques: Functional Indent/Objects Multiple Paredes: Functional Ident/Pics in Multiple Paredes: Functional Follows 1-Step Commands: Functional Follows Complex Directions: Functional Follows General Conversations: Functional Language Eval: Verbal Language Completes Spontaneous Greeting: Functional Produces Auto, Serial Info: Functional Imitates Simple Words/Phrases: Functional Word Finding: Functional Requests Basic Needs: Functional States Basic Personal Info: Functional Expresses Complex Ideas: Functional Objective Cognitive Domain Attention: WNL Memory: WNL Problem Solving: Functional Executive Functions: WNL Visuospatial Skills: WNL Composite Severity Rating: WNL Clock Drawing Severity Rating: WNL Objective Formal/Standardized Tests Western Aphasia Battery (WAB) subtests, informal speech tasks Results Patient is within the normal range of function Oral Motor/Speech Production Within Normal Limits Impression Patient is a pleasant 64 y/o female who was admitted to the hospital due to having a second stroke. Her first being in 2019. Patient was assessed at bedside with WAB subtests and informal speech tasks. Patient is functioning within normal range at this time. Patient does not require further ST services at this time. Speech-Plan Patient/Family Goals Patient/Family Goals: Patient plans on returning to her home upon hospital discharge. Treatment Plan Speech Therapy Treatment Plan: Discontinue ST Treatment Duration: Mar 08, 2020 Frequency: 1 time per week Estimated Hrs Per Day: .25 hour per day Rehab Potential: Good Barriers to Learning: None identified Pt/Family Agrees to Plan: Yes Safety Risks/Education Teaching Recipient: Patient Teaching Methods: Discussion Response to Teaching: Verbalize Understanding Education Topics Provided: Safety within her room and communication of wants/needs. Time Speech Therapy Time In: 08:25 Speech Therapy Time Out: 08:45 Total Billed Time: 20 Billed Treatment Time 1, NESS Harp Mar 08, 2020 09:14
[2020-03-08] MEDS: DOCUSATE SODIUM 100 MG (COLACE) CAP PO SCH (09:44)
[2020-03-08] MEDS: ATENOLOL 25 MG (TENORMIN) TAB PO SCH (09:45)
[2020-03-08] MEDS: RANOLAZINE ER 500 MG TAB (RANEXA) PO SCH (09:45)
--- NOTE | 2020-03-08 10:21 | Discharge Summary ---
Diagnosis/Chief Complaint Date of Admission Mar 07, 2020 at 16:15 Date of Discharge Discharge Date: Mar 08, 2020 Discharge Diagnosis Right sided weakness h/o left sided weakness from CVA 08/2018 Discharge Summary Discharge Physical Examination Allergies: Coded Allergies: celecoxib (Unverified Allergy, Unknown, 03/08/15) cinacalcet (Verified Allergy, Unknown, 03/07/20) clarithromycin (Verified Allergy, Unknown, 03/07/20) codeine (Verified Allergy, Unknown, 03/07/20) hydrocodone (Verified Allergy, Unknown, 03/07/20) levofloxacin (Verified Allergy, Unknown, 03/08/15) isosorbide (Verified Adverse Reaction, Unknown, severe hypotension, 03/08/15) Vitals & I&Os Vital Signs Date Time Temp Pulse Resp B/P (MAP) Pulse Ox O2 Delivery O2 Flow Rate FiO2 03/08/20 08:00 35.6 65 16 153/88 (109) 99 Room Air General Appearance: Alert Hospital Course Was the Problem List Reviewed?: Yes Hospital course: Pt had a brief hospital course, she was admitted due to concern for a stroke with right-sided weakness in addition to her chronic deficit on the left side when she had sustained a stroke and spent time in inpatient rehab. Pt remains an out of control diabetic and appears to be very debilitated and declined since last seen in August of 2018. MRI did not show any new stroke but it appears that she cant walk and having significant problems with her right side so she will be admitted to inpatient rehab. Labs (last 24 hrs) Laboratory Tests 03/07/20 14:09: White Blood Count 5.8, Red Blood Count 3.78L, Hemoglobin 12.5, Hematocrit 37, Mean Corpuscular Volume 98, Mean Corpuscular Hemoglobin 33, Mean Corpuscular He moglobin Concent 34, Red Cell Distribution Width 13.3, Platelet Count 140, Mean Platelet Volume 11.7, Immature Granulocyte % (Auto) 0, Neutrophils (%) (Auto) 61, Lymphocytes (%) (Auto) 31, Monocytes (%) (Auto) 6, Eosinophils (%) (Auto) 1, Basophils (%) (Auto) 0, Neutrophils # (Auto) 3.5, Lymphocytes # (Auto) 1.8, Monocytes # (Auto) 0.4, Eosinophils # (Auto) 0.1, Basophils # (Auto) 0.0, Immature Granulocyte # (Auto) 0.0, Prothrombin Time 14.2, INR Comment 1.1, Activated Partial Thromboplast Time 22L, D-Dimer 0.83H, Sodium Level 136, Potassium Level 4.7, Chloride Level 103, Carbon Dioxide Level 25, Anion Gap 8, Blood Urea Nitrogen 28H, Creatinine 1.91H, Estimat Glomerular Filtration Rate 26, BUN/Creatinine Ratio 15, Glucose Level 308H, Glucometer 268H, Calcium Level 10.2H, Corrected Calcium 10.4H, Total Bilirubin 0.8, Aspartate Amino Transf (AST/SGOT) 17, Alanine Aminotransferase (ALT/SGPT) 22, Alkaline Phosphatase 67, Troponin I < 0.028, Total Protein 6.2L, Albumin 3.7 03/07/20 15:19: Urine Color YELLOW, Urine Clarity CLEAR, Urine pH 6.0, Urine Specific [place] 1.020, Urine Protein 1+H, Urine Glucose (UA) 2+H, Urine Ketones NEGATIVE, Urine Nitrite NEGATIVE, Urine Bilirubin NEGATIVE, Urine Urobilinogen 0.2, Urine Leukocyte Esterase NEGATIVE, Urine RBC (Auto) NEGATIVE, Urine RBC NONE, Urine WBC RARE, Urine Crystals NONE, Urine Bacteria NEGATIVE, Urine Casts NONE, Urine Mucus NEGATIVE, Urine Culture Indicated NO 03/07/20 20:33: Glucometer 276H 03/08/20 03:27: White Blood Count 6.0, Red Blood Count 3.56L, Hemoglobin 11.7, Hematocrit 34L, Mean Corpuscular Volume 97, Mean Corpuscular Hemoglobin 33, Mean Corpuscular Hemoglobin Concent 34, Red Cell Distribution Width 13.2, Platelet Count 142, Mean Platelet Volume 11.3, Immature Granulocyte % (Auto) 1, Neutrophils (%) (Auto) 60, Lymphocytes (%) (Auto) 30, Monocytes (%) (Auto) 8, Eosinophils (%) (Auto) 1, Basophils (%) (Auto) 0, Neutrophils # (Auto) 3.6, Lymphocytes # (Auto) 1.8, Monocytes # (Auto) 0.5, Eosinophils # (Auto) 0.1, Basophils # (Auto) 0.0, Immature Granulocyte # (Auto) 0.0, Sodium Level 137, Potassium Level 4.3, Chloride Level 105, Carbon Dioxide Level 23, Anion Gap 9, Blood Urea Nitrogen 27H, Creatinine 1.59H, Estimat Glomerular Filtration Rate 33, BUN/Creatinine Ratio 17, Glucose Level 174H, Calcium Level 9.8, Corrected Calcium 10.2H, Total Bilirubin 0.4, Aspartate Amino Transf (AST/SGOT) 17, Alanine Aminotransferase (ALT/SGPT) 21, Alkaline Phosphatase 64, Total Protein 5.8L, Albumin 3.5, Triglycerides Level 315H, Cholesterol Level 271H, LDL Cholesterol Direct 193H, VLDL Cholesterol 63H, HDL Cholesterol 40 Pending Labs Laboratory Tests 03/07/20 14:09: White Blood Count 5.8, Red Blood Count 3.78, Hemoglobin 12.5, Hematocrit 37, Mean Corpuscular Volume 98, Mean Corpuscular Hemoglobin 33, Mean Corpuscular Hemoglobin Concent 34, Red Cell Distribution Width 13.3, Platelet Count 140, Mean Platelet Volume 11.7, Immature Granulocyte % (Auto) 0, Neutrophils (%) (Auto) 61, Lymphocytes (%) (Auto) 31, Monocytes (%) (Auto) 6, Eosinophils (%) (Auto) 1, Basophils (%) (Auto) 0, Neutrophils # (Auto) 3.5, Lymphocytes # (Auto) 1.8, Monocytes # (Auto) 0.4, Eosinophils # (Auto) 0.1, Basophils # (Auto) 0.0, Immature Granulocyte # (Auto) 0.0, Prothrombin Time 14.2, INR Comment 1.1, Activated Partial Thromboplast Time 22, D-Dimer 0.83, Sodium Level 136, Potassium Level 4.7, Chloride Level 103, Carbon Dioxide Level 25, Anion Gap 8, Blood Urea Nitrogen 28, Creatinine 1.91, Estimat Glomerular Filtration Rate 26, BUN/Creatinine Ratio 15, Glucose Level 308, Glucometer 268, Calcium Level 10.2, Corrected Calcium 10.4, Total Bilirubin 0.8, Aspartate Amino Transf (AST/SGOT) 17, Alanine Aminotransferase (ALT/SGPT) 22, Alkaline Phosphatase 67, Troponin I < 0.028, Total Protein 6.2, Albumin 3.7 03/07/20 15:19: Urine Color YELLOW, Urine Clarity CLEAR, Urine pH 6.0, Urine Specific [place] 1.020, Urine Protein 1+, Urine Glucose (UA) 2+, Urine Ketones NEGATIVE, Urine Nitrite NEGATIVE, Urine Bilirubin NEGATIVE, Urine Urobilinogen 0.2, Urine Leukocyte Esterase NEGATIVE, Urine RBC (Auto) NEGATIVE, Urine RBC NONE, Urine WBC RARE, Urine Crystals NONE, Urine Bacteria NEGATIVE, Urine Casts NONE, Urine Mucus NEGATIVE, Urine Culture Indicated NO 03/07/20 20:33: Glucometer 276 03/08/20 03:27: White Blood Count 6.0, Red Blood Count 3.56, Hemoglobin 11.7, Hematocrit 34, Mean Corpuscular Volume 97, Mean Corpuscular Hemoglobin 33, Mean Corpuscular Hemoglobin Concent 34, Red Cell Distribution Width 13.2, Platelet Count 142, Mean Platelet Volume 11.3, Immature Granulocyte % (Auto) 1, Neutrophils (%) (Auto) 60, Lymphocytes (%) (Auto) 30, Monocytes (%) (Auto) 8, Eosinophils (%) (Auto) 1, Basophils (%) (Auto) 0, Neutrophils # (Auto) 3.6, Lymphocytes # (Auto) 1.8, Monocytes # (Auto) 0.5, Eosinophils # (Auto) 0.1, Basophils # (Auto) 0.0, Immature Granulocyte # (Auto) 0.0, Sodium Level 137, Potassium Level 4.3, Chloride Level 105, Carbon Dioxide Level 23, Anion Gap 9, Blood Urea Nitrogen 27, Creatinine 1.59, Estimat Glomerular Filtration Rate 33, BUN/Creatinine Ratio 17, Glucose Level 174, Calcium Level 9.8, Corrected Calcium 10.2, Total Bilirubin 0.4, Aspartate Amino Transf (AST/SGOT) 17, Alanine Aminotransferase (ALT/SGPT) 21, Alkaline Phosphatase 64, Total Protein 5.8, Albumin 3.5, Triglycerides Level 315, Cholesterol Level 271, LDL Cholesterol Direct 193, VLDL Cholesterol 63, HDL Cholesterol 40 Discharge Home Medications: Active Scripts Active Nitroglycerin 0.4 Mg Tab.subl 0.4 Mg SL UD PRN 30 Days Reported Allopurinol 300 Mg Tablet 300 Mg PO MON,FRI Magnesium (Magnesium Oxide) 400 Mg Tablet 400 Mg PO DAILY Meclizine HCl 25 Mg Tablet 25-50 Mg PO DAILY PRN Metoclopramide HCl 10 Mg Tablet 10 Mg PO BID PRN Sertraline HCl 25 Mg Tablet 25 Mg PO HS Oxybutynin Chloride ER (Oxybutynin Chloride) 5 Mg Tab.er.24 5 Mg PO DAILY PRN Novolin N (Insulin NPH Human Isophane) 100 Unit/1 Ml Vial 83 Unit SQ HS Novolin N (Insulin NPH Human Isophane) 100 Unit/1 Ml Vial 66 Units SC DAILY Ranexa (Ranolazine) 1,000 Mg Tab.er.12h 1,000 Mg PO BID Losartan Potassium 50 Mg Tablet 50 Mg PO DAILY PRN Atenolol 25 Mg Tablet 25 Mg PO DAILY Novolin R (Insulin Regular, Human) 100 Unit/1 Ml Vial 10-20 Unit SC TIDAC Aspirin EC (Aspirin) 81 Mg Tablet.dr 81 Mg PO DAILY Clopidogrel (Clopidogrel Bisulfate) 75 Mg Tablet 75 Mg PO DAILY Furosemide 20 Mg Tablet 20 Mg PO MOFR LAST FILLED 08-20-2019 #30/ DAY SUPPLY Instructions to patient/family Please see electronic discharge instructions given to patient. Diagnosis/Problems Diagnosis/Problems (1) TIA (transient ischemic attack) Status: Acute (2) Weakness Status: Acute Clinical Quality Measures DVT/VTE Risk/Contraindication: Risk Factor Score Per Nursin RFS Level Per Nursing on Admit: 4+=Very High Stroke: Date of last known well: Mar 07, 2020 Time of last known well: 13:00 JAG KIRKLAND DO Mar 08, 2020 10:21
[2020-03-08] MEDS ORDERED: SERT25TA5 PO (13:31)
[2020-03-08] MEDS ORDERED: MAGN400T39 PO (13:31)
[2020-03-08] MEDS ORDERED: OXYB-52 PO (13:31)
[2020-03-08] MEDS ORDERED: MECL-149 PO (13:31)
[2020-03-08] MEDS ORDERED: METO10TA3 PO (13:31)
[2020-03-08] MEDS ORDERED: ALLO300T2 PO (13:41)
== END 2020-03-08 11:10 ==
LOC: EDUNIT# 13:55 → ER 13:57 → UNDOADMOB 16:15 → CSD 16:15 → UNDODISOB 03-08 11:10
PROVIDERS: ADMIT Internal Medicine; ATTEND Internal Medicine
DX: G45.9 Transient cerebral ischemic attack, unspecified (principal); I25.10 Atherosclerotic heart disease of native coronary artery without angina pectoris; E78.00 Pure hypercholesterolemia, unspecified; K21.9 Gastro-esophageal reflux disease without esophagitis; I12.9 Hypertensive chronic kidney disease with stage 1 through stage 4 chronic kidney disease, or unspecified chronic kidney disease; N18.9 Chronic kidney disease, unspecified; M19.90 Unspecified osteoarthritis, unspecified site; E11.22 Type 2 diabetes mellitus with diabetic chronic kidney disease; K59.09 Other constipation; E78.5 Hyperlipidemia, unspecified; G47.00 Insomnia, unspecified; E11.40 Type 2 diabetes mellitus with diabetic neuropathy, unspecified; I63.9 Cerebral infarction, unspecified; Z79.82 Long term (current) use of aspirin; Z79.899 Other long term (current) drug therapy; Z79.4 Long term (current) use of insulin; Z88.5 Allergy status to narcotic agent; Z88.8 Allergy status to other drugs, medicaments and biological substances; Z88.1 Allergy status to other antibiotic agents; Z90.710 Acquired absence of both cervix and uterus; Z80.1 Family history of malignant neoplasm of trachea, bronchus and lung; Z80.41 Family history of malignant neoplasm of ovary
CPT/HCPCS: 51702; 70450; 70551; 71045; 80053 ×2; 80061; 81000; 82962; 84484; 85025 ×2; 85379; 85610; 85730; 92523; 93005; 93306; 99284; G0378; 36415

== ENCOUNTER 2020-03-08 10:23 | Inpatient (IN) | payer MEDICARE, OTHER ==
[~2020-03-08] VITALS: Ht 170 cm; Wt 93.1 kg
[~2020-03-08 10:23] MED LIST changes: +MAGN400T8 PO; +MECL-149 PO; +NITR0.4T39 SL
[2020-03-08] MEDS ORDERED: guaiFENesin/CODEINE (ROBITUSSIN AC) 10ML UDC PO PRN (10:45)
[2020-03-08] MEDS ORDERED: LOPERAMIDE 2 MG (IMODIUM) TABLET PO PRN (10:45)
[2020-03-08] MEDS ORDERED: ONDANSETRON 4 MG (ZOFRAN) ORAL DISSOLVE TAB PO PRN (10:45)
[2020-03-08] MEDS ORDERED: diphenhydrAMINE 25 MG TAB (BENADRYL) PO PRN (10:45)
[2020-03-08] MEDS ORDERED: DOCUSATE SODIUM 100 MG (COLACE) CAP PO PRN (10:45)
[2020-03-08] MEDS ORDERED: ALPRAZolam 0.25 MG (XANAX) TAB PO PRN (10:45)
[2020-03-08] MEDS ORDERED: BISACODYL 10 MG SUPP (DULCOLAX) PR PRN (10:45)
[2020-03-08] MEDS ORDERED: CALCIUM CARBONATE 500 MG (TUMS) TAB.CHEW PO PRN (10:45)
[2020-03-08] MEDS ORDERED: LACTULOSE SYRUP 10GM/15ML (ENULOSE) 30ML UDC PO PRN (10:45)
[2020-03-08] MEDS ORDERED: MELATONIN 3 MG TABLET PO PRN (10:45)
[2020-03-08] MEDS ORDERED: FLEET ENEMA ADULT 1 EA BTL PR PRN (10:45)
--- NOTE | 2020-03-08 11:15 | NUR ---
Pt admitted to room 227 with an admitting diagnosis of CVA, from Cardiac Stepdown via w/c, accompanied by OT. CARMELA CARVALHO introduced to surroundings, call light, bed controls, phone, TV, temperature control, lights, meal times, smoking policy, visitor policy, side rail policy, bathrooms and showers. Patient Rights given to patient in the handbook. CARMELA CARVALHO verbalizes understanding that [facility] is not responsible for the loss or damage to any personal effects or valuables that are kept in the patients posession during their hospitalization. The following Patient Care Plans were discussed with the pt: Discharge Planning, Impaired Mobility, Self Care Deficit, Potential for falls/injury. CARMELA CARVALHO verbalizes understanding of Interdisciplinary Patient Education. Patient and/or family were informed about the Rapid Response Team and its purpose. Patient received Patient Rights Booklet, which includes Privacy Act Statement and Data Collection Information Summary.
--- NOTE | 2020-03-08 12:55 | Physical Therapy Evaluation ---
PT Evaluation-General Medical Diagnosis Admission Date Mar 08, 2020 at 11:14 Medical Diagnosis: CVA Onset Date: Mar 07, 2020 Therapy Diagnosis Therapy Diagnosis: impaired mobility, strength, endurance, balance Height/Weight Height (Feet): 5 Height (Inches): 6.00 Weight (Pounds): 220 Weight (Ounces): 10.0 Referral Physician: Teressa Goodrich DO Medical History Pertinent Medical History: Arthritis, CAD, CVA, DM, HTN, CO, Neuropathy Reviewed History: Yes Social History Home: Single Level Current Living Status: Children Entry Into Home: Stairs With Railing PT Steps Into Home: 2 Prior Prior Level of Function SCALE: Activities may be completed with or without assistive devices. 6-Pnjlwblbjm-cxbdtjz completes the activity by him/herself with no assistance from a helper. 5-Set-up or Clean-up Assistance-helper sets up or cleans up; patient completes activity. Nellis assists only prior to or following the activity. 4-Supervision or Touching Assistance-helper provides verbal cues and/or touching/steadying and/or contact guard assistance as patient completes activity. Assistance may be provided throughout the activity or intermittently. 3-Partial/Moderate Assistance-helper does LESS THAN HALF the effort. Nellis lifts, holds or supports trunk or limbs, but provides less than half the effort. 2-Substantial/Maximal Assistance-helper does MORE THAN HALF the effort. Nellis lifts or holds trunk or limbs and provides more than half the effort. 8-Qcanzrlrz-dyhwsz does ALL the effort. Patient does none of the effort to complete the activity. Or, the assistance of 2 or more helpers is required for the patient to complete the activity. If activity was not attempted, code reason: 7-Patient Refused. 9-Not Applicable-not attempted and the patient did not perform the activity before the current illness, exacerbation or injury. 10-Not Attempted due to Environmental Limitations-(lack of equipment, weather restraints, etc.). 88-Not Attempted due to Medical Conditions or Safety Concerns. Bed Mobility: 5 Transfers (B,C,W/C): 5 Gait: 5 Stairs: 5 Prior Devices Use: Walker PT Evaluation-Current Subjective Patient in WC pre tx, already been working with OT, has unrated right shoulder pain, agrees to PT, will be co-treating with OT due to poor patient mobility, strength, endurance, poor standing balance, the need to coordinate UE and LE during activity, safety and reduce risk of falls. Pt/Family Goals to be independent at home Objective Patient Orientation: Person, Place, Situation ROM/Strength ROM Lower Extremities WNL Strength Lower Extremities RLE (hip flexion 3+/5, knee flexion 4+/5, knee extension 4+/5, dorsiflexion 4+/5), LLE (hip flexion 3+/5, knee flexion 4/5, knee extension 4/5, dorsiflexion 4/5) Neuromuscular (Tone, Coordination, Reflexes) Patient seem to have intact peripheral vision bilaterally but has a little difficulty tracking on both sides but worse on the left side. Sensory Hearing: Functional Sensation Right Lower Extremit: Intact Sensation Left Lower Extremity: Intact Transfers Roll Left & Right (QC): 4 Sit to Lying (QC): 3 Lying to Sitting/Side of Bed(Q: 3 Sit to Stand (QC): 4 Chair/Stt-gv-Wfbvh Xfer(QC): 4 Toilet Transfer (QC): 4 Car Transfer (QC): 4 Patient performs bed mobility with SBA, supine <-> sit min assist, sit <-> stand CGA, transfers CGA, car transfer CGA. Occasional cues for positioning and safety. Gait Does the Patient Walk?: Yes Mode of Locomotion: Walk Anticipated Mode of Locomotion: Walk Walk 10 feet (QC): 4 Walk 50 ft with 2 Turns(QC): 4 Walk 150 ft (QC): 88 Walking 10ft/uneven surface-QC: 4 Gait Assistive Device: FWW Comments/Gait Description Patient can ambulate 130' with a rolling walker with CGA (including 50' with at least 2 turns of 90 degrees and 10' over an uneven surface). Patient ambulates slowly, wide OCTAVIO but advances both legs well when stepping, needs assist with balance occasionally. Wheelchair Training Wheel 50 ft with 2 turns (QC): 4 Wheel 150 ft (QC): 88 Stairs #of Steps: 1 1 Step (curb) (QC): 4 4 Steps (QC): 88 12 Steps (QC): 88 Balance Sitting Static: Normal Sitting Dynamic: Good Standing Static: Fair Standing Dynamic: Fair Picking up an Object (QC): 4 Assessment/Needs Patient has impaired mobility, strength, endurance, balance. She wears out qu ickly during ambulation and needs to sit quickly, is unsteady during ambulation and turning. Rehab Potential: Fair PT Short Term Goals Short Term Goals Time Frame: Mar 15, 2020 Roll Left & Right: 6 Sit to lyin Lying to sitting on side of be: 4 Sit to stand: 4 Chair/soo-zz-ebict transfer: 4 Walk 10 feet: 4 Walk 50 feet with two turns: 4 Walk 150 feet: 4 PT Mcfp Goals Mcfp Goals PT Mcfp Goals Time Frame: Mar 29, 2020 Roll Left & Right (QC): 6 Sit to Lying (QC): 6 Lying-Sitting on Side/Bed(QC): 6 Sit to Stand (QC): 6 Chair/Gcl-wl-Qtprw Xfer(QC): 6 Toilet Transfer (QC): 6 Car Transfer (QC): 6 Does the Patient Walk: Yes Walk 10 feet (QC): 6 Walk 50ft with 2 Turns (QC): 6 Walk 150 ft (QC): 6 Walking 10ft on Uneven Surface: 6 1 Step (curb) (QC): 4 4 Steps (QC): 4 12 Steps (QC): 88 Picking up an Object (QC): 4 Wheel 50 feet with 2 turns (QC: 9 Wheel 150 feet: 9 PT Plan Problem List Problem List: Activity Tolerance, Functional Strength, Safety, Balance, Gait, Transfer, Bed Mobility, ROM Treatment/Plan Treatment Plan: Continue Plan of Care Treatment Plan: Bed Mobility, Education, Functional Activity Ruthie, Functional Strength, Group Therapy, Gait, Safety, Therapeutic Exercise, Transfers Treatment Duration: Mar 29, 2020 Frequency: At least 5 of 7 days/Wk (IRF) Estimated Hrs Per Day: 1.5 hours per day Patient and/or Family Agrees t: Yes Safety Risks/Education Patient Education: Gait Training, Transfer Techniques, Steps, Correct Positioning, Safety Issues Teaching Recipient: Patient Teaching Methods: Demonstration, Discussion Response to Teaching: Reinforcement Needed Discharge Recommendations Plan Patient will perform bed mobility and transfer training, balance and endurance training, functional strengthening, stair training, gait training, and education, to improve functional mobility and independence at home. Therapy Discharge Recommendati: Scheduled Assistance Time/GCodes Time In: 1130 Time Out: 1215 Total Billed Treatment Time: 45 Total Billed Treatment 1 visit EVM 10' FA 35' PT worked on bed mobility and transfers, ambulation, stairs, OT worked on UE positioning and safety during activity. PT eval from [id number], co-treat from [id number] MOSES SPAULDING PT Mar 08, 2020 12:54
[2020-03-08] MEDS ORDERED: MAGN400T39 PO (13:31)
[2020-03-08] MEDS ORDERED: MECL-149 PO (13:31)
[2020-03-08] MEDS ORDERED: METO10TA3 PO (13:31)
[2020-03-08] MEDS ORDERED: SERT25TA5 PO (13:31)
[2020-03-08] MEDS ORDERED: OXYB-52 PO (13:31)
[2020-03-08] MEDS ORDERED: ALLO300T2 PO (13:41)
--- NOTE | 2020-03-08 13:43 | NUR ---
SPOKE WITH THE PT (SHE HAS HOME MEDS W/ HER), WENT THRU THE EXT MED HISTORY AND CALLED [facility] TO COMPLETE THE MED REC THE PT WAS HONEST ABOUT HER MEDICATIONS AND SAID "I FORGET A LOT OF THINGS ESPECIALLY MY MEDICATIONS". THERE WAS A MED LIST ON THE PT CHART (DATED 09-02-2018) THAT IS OUT OF DATE. THE FOLLOWING MEDICATIONS ARE LISTED BUT THE PT IS NO LONGER TAKING: ATORVASTATIN 80MG- PT SAID SHE LOST THE BOTTLE (LAST FILLED 09-18-2019 #90) AND COULD NEVER GET THE PHARMACY TO REFILL IT FENOFIBRATE 54- PT IS NOT FAMILIAR W/ THIS MED AND DOESNT REMEMBER TAKING THE FOLLOWING MEDS ARE WITH THE PT IN HER MEDS BOX BUT SHE STATES SHE NO LONGER TAKES: FOSAMAX 10MG- PT SHE QUIT TAKING DUE TO SIDE EFFECTS TRAMADOL 50- FILLED IN 2018 AND PT SAYS SHE NEVER TAKES PROMETHAZINE- PT IS ADAMANT SHE IS NOT TAKING OXYBUTYNIN ER 5MG AND LOSARTAN THE PT ONLY TAKES PRN ALLOPURINOL: MOST RECENTLY FILLED WAS 300MG HOWEVER PT HAS A BOTTLE WITH HER THAT SAYS 100MG. WHEN I LOOKED AT THE TABS THEY ARE 300MG, ACCORDING TO THE PT SHE POURS NEW BOTTLES INTO OLD BOTTLES (I DID ADVISE AGAINST DOING THAT FOR THIS REASON), I DID WRITE "300MG" ON THE BOTTLE SO PT WILL KNOW WHEN SHE IS DISCHARGED FUROSEMIDE 20MG WAS LAST FILLED 08-20-2019 #30 (TAKES MON &FRI) AND THE PAST DUE FILL WAS DOCUMENTED ON THE MED REC CLOPIDOGREL 75MG WAS LAST FILLED ON 01-03-2020 #90/90DS- THIS IS JUST NOT SHOWN ON THE EXT MED HISTORY NOVOLIN N LAST FILLED ON 11-27-2019 #4 BOTTLES/26 DS & NOVOLIN R LAST FILLED ON 02-14-2019 #3 BOTTLES /30DS. PHARMACY DID LET ME KNOW SHE COULD HAVE BEEN GETTING THESE WITHOUT A PRESCRIPTION, AND WHEN I LOOKED AT 1 BOX THAT WAS UNOPENED IT DID NOT HAVE A PHARMACY LABEL WHICH WOULD EXPLAIN THE FILL DATES. OTC MEDS: MECLIZINE ASPIRIN 81MG MAGNESIUM
--- NOTE | 2020-03-08 13:54 | ST Cognitive Linguistic Eval ---
Speech Evaluation-General Medical Diagnosis CVA Onset Date: Mar 07, 2020 Therapy Diagnosis Therapy Diagnosis: Cognitive-communication Referral Referring Physician: Dr. Goodrich Medical History Pertinent Medical History: Arthritis, CAD, CVA, DM, HTN, [place], Neuropathy Reviewed History: Yes Social History Current Living Status: Children Speech PLF-Current Status Prior Level of Function Patient lives in her home with children where she was independent for much of her daily needs. Subjective Patient was pleasant and cooperative with the assessment process. Language Eval: Auditory Comprehends Simple Yes/No Ques: Functional Indent/Objects Multiple Paredes: Functional Ident/Pics in Multiple Paredes: Functional Follows 1-Step Commands: Functional Follows Complex Directions: Functional Follows General Conversations: Functional Language Eval: Verbal Language Completes Spontaneous Greeting: Functional Produces Auto, Serial Info: Functional Imitates Simple Words/Phrases: Functional Word Finding: Functional Requests Basic Needs: Functional States Basic Personal Info: Functional Expresses Complex Ideas: Functional Objective Cognitive Domain Attention: WNL Memory: WNL Problem Solving: Functional Executive Functions: WNL Visuospatial Skills: WNL Composite Severity Rating: WNL Clock Drawing Severity Rating: WNL Objective Formal/Standardized Tests [facility] Status ([facility]) Results 28/30, within normal range of function Oral Motor/Speech Production Within Normal Limits Impression Patient is a pleasant 64 y/o female who was admitted to the ARU s/p CVA. Patient is known to this clinician due to being a patient on ARU in 2019 following her first CVA. Patient was given the SLUMS with a score of 28/30 obtained. This score is within the normal range of function. Patient does not require further ST services at this time. Speech Patient Assess Expression of Ideas/Wants: Expression (4) Understanding Verbal Content: Understands (4) Brief Interview-Mental Status: Yes Repetition of Three Words: Three (3) Temporal Orientation: Year: Correct (3) Temporal Orientation: Month: Accurate within 5 days(2) Temporal Orientation: Day: Correct (1) Recall : Wear to say "Sock": Yes,after cueing (1) Recall : Color: Yes, after cueing (1) Recall : Bed: Yes, no cue required (2) Memory/Recall Ability: Current season, That he or she is in a hsp/hsp unit Speech-Plan Patient/Family Goals Patient/Family Goals: Patient plans on returning to her home upon discharge. Patient lives with children who will assist her with her daily needs. Treatment Plan Speech Therapy Treatment Plan: Discontinue ST Treatment Duration: Mar 08, 2020 Frequency: 1 time per week Estimated Hrs Per Day: .25 hour per day Rehab Potential: Fair Barriers to Learning: Patient's second CVA Pt/Family Agrees to Plan: Yes Safety Risks/Education Teaching Recipient: Patient Teaching Methods: Discussion Response to Teaching: Verbalize Understanding Education Topics Provided: Safety within her room and communication of wants/needs Time Speech Therapy Time In: 15:00 Speech Therapy Time Out: 15:15 Total Billed Time: 15 Billed Treatment Time 1, SPSNDCOMP NESS Flower Mar 08, 2020 13:54
--- NOTE | 2020-03-08 14:33 | Physical Therapy Daily Note ---
PT Daily Note-Current Subjective Patient reports fatigue but agrees to PT. Mental Status Patient Orientation: Normal For Age Transfers SCALE: Activities may be completed with or without assistive devices. 4-Srjasreusi-ybqesnt completes the activity by him/herself with no assistance from a helper. 5-Set-up or Clean-up Assistance-helper sets up or cleans up; patient completes activity. [place] assists only prior to or following the activity. 4-Supervision or Touching Assistance-helper provides verbal cues and/or touching/steadying and/or contact guard assistance as patient completes activity. Assistance may be provided throughout the activity or intermittently. 3-Partial/Moderate Assistance-helper does LESS THAN HALF the effort. [place] lifts, holds or supports trunk or limbs, but provides less than half the effort. 2-Substantial/Maximal Assistance-helper does MORE THAN HALF the effort. [place] lifts or holds trunk or limbs and provides more than half the effort. 1-Kliqxonnz-phijtm does ALL the effort. Patient does none of the effort to complete the activity. Or, the assistance of 2 or more helpers is required for the patient to complete the activity. If activity was not attempted, code reason: 7-Patient Refused. 9-Not Applicable-not attempted and the patient did not perform the activity before the current illness, exacerbation or injury. 10-Not Attempted due to Environmental Limitations-(lack of equipment, weather restraints, etc.). 88-Not Attempted due to Medical Conditions or Safety Concerns. Roll Left & Right (QC): 5 Sit to Lying (QC): 4 Lying to Sitting/Side of Bed(Q: 4 Sit to Stand (QC): 4 Chair/Okf-gv-Kfhqz Xfer(QC): 4 Gait Training Does the Patient Walk?: Yes Distance: 150' x 4 Walk 10 feet (QC): 4 Walk 50 ft with 2 Turns(QC): 4 Walk 150 ft (QC): 4 Gait Assistive Device: FWW slow, steady gait sequence with no deviation this p.m. Exercises Seated Therapy Exercises: Ankle pumps, Long arc quads Seated Reps: 12 (2 sets) Assessment Patient returned to bed with 4 rails up and tray in situ. PT to increase activity as patient tolerates. PT Short Term Goals Short Term Goals Time Frame: Mar 15, 2020 Roll Left & Right: 6 Sit to lyin Lying to sitting on side of be: 4 Sit to stand: 4 Chair/pka-qx-lcejc transfer: 4 Walk 10 feet: 4 Walk 50 feet with two turns: 4 Walk 150 feet: 4 PT Mcfp Goals Mcfp Goals PT Mcfp Goals Time Frame: Mar 29, 2020 Roll Left & Right (QC): 6 Sit to Lying (QC): 6 Lying-Sitting on Side/Bed(QC): 6 Sit to Stand (QC): 6 Chair/Rse-nh-Ovlth Xfer(QC): 6 Toilet Transfer (QC): 6 Car Transfer (QC): 6 Does the Patient Walk: Yes Walk 10 feet (QC): 6 Walk 50ft with 2 Turns (QC): 6 Walk 150 ft (QC): 6 Walking 10ft on Uneven Surface: 6 1 Step (curb) (QC): 4 4 Steps (QC): 4 12 Steps (QC): 88 Picking up an Object (QC): 4 Wheel 50 feet with 2 turns (QC: 9 Wheel 150 feet: 9 PT Plan Treatment/Plan Treatment Plan: Continue Plan of Care Treatment Plan: Bed Mobility, Education, Functional Activity Ruthie, Functional Strength, Group Therapy, Gait, Safety, Therapeutic Exercise, Transfers Treatment Duration: Mar 29, 2020 Frequency: At least 5 of 7 days/Wk (IRF) Estimated Hrs Per Day: 1.5 hours per day Patient and/or Family Agrees t: Yes Time/GCodes Time In: 1350 Time Out: 1420 Total Billed Treatment Time: 30 Total Billed Treatment 1 visit FA x 2 30 min PANKAJ WELLER PT Mar 08, 2020 14:33
--- NOTE | 2020-03-08 15:40 | Occupational Therapy Eval ---
OT Evaluation-General/PLF Medical Diagnosis Admission Date Mar 08, 2020 at 11:14 Medical Diagnosis: CVA Onset Date: Mar 07, 2020 Therapy Diagnosis Therapy Diagnosis: Weakness, Decreased ADL skills Height/Weight Height (Feet): 5 Height (Inches): 6.00 Weight (Pounds): 220 Weight (Ounces): 10.0 Precautions Precautions/Isolations: Fall Prevention, Standard Precautions, Pressure Ulcer Weight Bear Status Weight Bearing Restriction: Weight Bearing/Tolerated Referral Physician: Teressa Goodrich DO Referral Reason: Activity Tolerance, Self Care, Evaluation/Treatment, Strengthening/ROM Medical History Pertinent Medical History: Arthritis, CAD, CVA, DM, HTN, MA, Neuropathy Current History Pt. 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 She sustained another CVA at home on 03-07-19, with resulting right sided weakness and facial droop. Most issues have resolved. Reviewed History: Yes Social History Home: Single Level Current Living Status: Children Entry Into Home: Stairs With Railing Steps Into Home: 3 ADL-Prior Level of Function SCALE: Activities may be completed with or without assistive devices. 0-Cwjuokuoly-detuktb completes the activity by him/herself with no assistance from a helper. 5-Set-up or Clean-up Assistance-helper sets up or cleans up; patient completes activity. [place] assists only prior to or following the activity. 4-Supervision or Touching Assistance-helper provides verbal cues and/or touching/steadying and/or contact guard assistance as patient completes activity. Assistance may be provided throughout the activity or intermittently. 3-Partial/Moderate Assistance-helper does LESS THAN HALF the effort. [place] lifts, holds or supports trunk or limbs, but provides less than half the effort. 2-Substantial/Maximal Assistance-helper does MORE THAN HALF the effort. [place] lifts or holds trunk or limbs and provides more than half the effort. 7-Frtgeqzqs-pvefth does ALL the effort. Patient does none of the effort to complete the activity. Or, the assistance of 2 or more helpers is required for the patient to complete the activity. If activity was not attempted, code reason: 7-Patient Refused. 9-Not Applicable-not attempted and the patient did not perform the activity before the current illness, exacerbation or injury. 10-Not Attempted due to Environmental Limitations-(lack of equipment, weather restraints, etc.). 88-Not Attempted due to Medical Conditions or Safety Concerns. ADL PLOF Comments Pt. moved in with her daughter. She states that she lives in her daughters basement, but there are only 3 steps to get into it, and there is a pole to hold onto. She states that she always has assist on the other side as well. She is able to shower herself after her daughter gets it started for her, and is able to dress self from her recliner. Self Care: Needed Some Help Functional Cognition: Independent DME/Equipment: Bath Chair, Shower DME/Equipment Comments Pt. has a walker. 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 indicates that her right shoulder is sore, but states that she is unsure why. She states that it just started "to happen." When pt. is asked a pain level, she indicates that she doesn't have pain when it isnt moving. Appearance Pt. is in bed when OT enters room. Agrees to work. Mental Status/Objective Patient Orientation: Person, Place, Time, Situation Attachments: Leiva Catheter, IV Current Upper Extremity ROM Right shoulder- approximately 90 degrees active flexion. Left shoulder- approximately 110 degrees. WFL throughout rest of UE. Upper Extremity Strength Right UE- 3+/5 throughout Left UE- 3+/5 shoulder, elbow Left UE- 2+/5 hand ADL-Treatment Eating (QC): 6 (Pt. able to eat her breakfast.) Oral Hygiene (QC): 7 (Declines at this time as she does not have her partial here. Family to bring it in.) Shower/Bathe Self (QC): 7 (Pt. declines but states that she will do this in the a.m.) Upper Body Dressing (QC): 88 Lower Body Dressing (QC): 88 On/Off Footwear (QC): 4 (SBA to don slipper socks and slippers.) Toileting Hygiene (QC): 2 (Pt. has catheter at this time and declines having to use toilet for BM.) Other Treatments Pt. seen for partial co-treatment with PT due to need of skilled assistance x 2. PT focused on mobility and transfers while OT focused on ADL skills and UE movement. Pt. states that she is concerned that she can't stand very well at beginning of treatment. Pt. able to transfer supine-sit with min assist. She is able to stand with walker, and later on as well with CGA. Pt. practices footwear, as well as participates in UE assessment. Pt. is able to ambulate with walker and CGA. Please see PT note for distance ambulated. Pt. does not have street clothing here yet, but her daughter is to bring it. Pt. ambulates into bathroom with walker and is able to stand at sink to brush hair. Ambulated back to chair in room and all needs met. Education OT Patient Education: Correct positioning, Exercise program, Modified ADL techniques, Progress toward Goal/Update tx plan, Purpose of tx/functional activities, Reviewed precautions, Rehab process, Transfer techniques Teaching Recipient: Patient Teaching Methods: Demonstration, Discussion Response to Teaching: Verbalize Understanding, Return Demonstration OT Short Term Goals Short Term Goals Time Frame: Mar 15, 2020 Eatin Oral hygiene: 4 Toileting hygiene: 4 Shower/bathe self: 3 Upper body dressin Lower body dressin Putting on/taking off footwear: 4 OT Electrical Tests Supervisor Goals Senior Care Goals Time Frame: Mar 22, 2020 Eating (QC): 6 Oral Hygiene (QC): 6 Toileting Hygiene (QC): 6 Shower/Bathe Self (QC): 4 Upper Body Dressing (QC): 5 Lower Body Dressing (QC): 5 On/Off Footwear (QC): 5 Additional Goals: 1-Demonstrate ADL Tasks, 2-Verbalize Understanding, 3- ImproveStrength/Ruthie 1=Demonstrate adherence to instructed precautions during ADL tasks. 2=Patient will verbalize/demonstrate understanding of assistive devices/modifications for ADL. 3=Patient will improve strength/tolerance for activity to enable patient to perform ADL's. OT Education/Plan Problem List/Assessment Assessment: Decreased Activ Tolerance, Decreased UE Strength, Dependent Transfers, Impaired Bed Mobility, Impaired I ADL's, Impaired Self-Care Skills, Restricted Funct UE ROM Discharge Recommendations Plan/Recommendations: Continue POC Therapy Discharge Recommendati: Home & Family, Post Acute OT Treatment Plan/Plan of Care Treatment,Training & Education: Yes Patient would benefit from OT for education, treatment and training to promote independence in ADL's, mobility, safety and/or upper extremity function for ADL's. Plan of Care: ADL Retraining, Functional Mobility, UE Funct Exercise/Act Treatment Duration: Mar 22, 2020 Frequency: At least 5 of 7 days/Wk (IRF) Estimated Hrs Per Day: 1.5 hours per day Agreement: Yes Rehab Potential: Good Time/GCodes Start Time: 11:15 Stop Time: 12:25 Total Time Billed (hr/min): 60 Billed Treatment Time 1510-9165 1, EVM [id number] PT eval, no charge [id number] FA x 35minutes. Co-treatment with PT. Please see above note for designated roles. [id number] ADL x 10minutes MIGUEL AVALOS OT Mar 08, 2020 15:40
--- NOTE | 2020-03-08 16:05 | Occupational Ther Daily Note ---
OT Current Status-Daily Note Subjective No pain reported. Mental Status/Objective Patient Orientation: Person, Place, Time, Situation ADL-Treatment Therapy Code Descriptions/Definitions Functional [place] Measure: 0=Not Assessed/NA 4=Minimal Assistance 1=Total Assistance 5=Supervision or Setup 2=Maximal Assistance 6=Modified [place] 3=Moderate Assistance 7=Complete IndependenceSCALE: Activities may be completed with or without assistive devices. 0-Ejwxjzwmgs-cglfywf completes the activity by him/herself with no assistance from a helper. 5-Set-up or Clean-up Assistance-helper sets up or cleans up; patient completes activity. [place] assists only prior to or following the activity. 4-Supervision or Touching Assistance-helper provides verbal cues and/or touching/steadying and/or contact guard assistance as patient completes activity. Assistance may be provided throughout the activity or intermittently. 3-Partial/Moderate Assistance-helper does LESS THAN HALF the effort. [place] lifts, holds or supports trunk or limbs, but provides less than half the effort. 2-Substantial/Maximal Assistance-helper does MORE THAN HALF the effort. [place] lifts or holds trunk or limbs and provides more than half the effort. 4-Fcnskvryp-bdonac does ALL the effort. Patient does none of the effort to complete the activity. Or, the assistance of 2 or more helpers is required for the patient to complete the activity. If activity was not attempted, code reason: 7-Patient Refused. 9-Not Applicable-not attempted and the patient did not perform the activity before the current illness, exacerbation or injury. 10-Not Attempted due to Environmental Limitations-(lack of equipment, weather restraints, etc.). 88-Not Attempted due to Medical Conditions or Safety Concerns. Eating (QC): 6 (Pt. had just finished her lunch. No difficulty reported.) On/Off Footwear: 4 (SBA to don slipper socks.) Pt. agrees to work with OT. Pt. transfers sit-stand with SBA and walker, and ambulates into bathroom to wash her hands. Stands at sink approximately 1-2 minutes. Ambulates back to chair and is issued red theraband and therapy sponge. Pt. is able to complete 20 bilateral hand squeezes, as well as 3 bilateral UE exercises, x 15 reps each in multiple planes. Completed these exercises to improve overall strength. Pt. is educated and encouraged to do these on her own when not in therapy sessions. Verbalizes understanding. All needs met. Education OT Patient Education: Correct positioning, Exercise program, Modified ADL techniques, Progress toward Goal/Update tx plan, Purpose of tx/functional activities, Reviewed precautions, Rehab process, Transfer techniques Teaching Recipient: Patient Teaching Methods: Demonstration, Discussion Response to Teaching: Verbalize Understanding, Return Demonstration OT Short Term Goals Short Term Goals Time Frame: Mar 15, 2020 Eatin Oral hygiene: 4 Toileting hygiene: 4 Shower/bathe self: 3 Upper body dressin Lower body dressin Putting on/taking off footwear: 4 OT Tail Trimmer Goals Care Home Goals Time Frame: Mar 22, 2020 Eating (QC): 6 Oral Hygiene (QC): 6 Toileting Hygiene (QC): 6 Shower/Bathe Self (QC): 4 Upper Body Dressing (QC): 5 Lower Body Dressing (QC): 5 On/Off Footwear (QC): 5 Additional Goals: 1-Demonstrate ADL Tasks, 2-Verbalize Understanding, 3-ImproveStrength/Ruthie 1=Demonstrate adherence to instructed precautions during ADL tasks. 2=Patient will verbalize/demonstrate understanding of assistive devices/modifications for ADL. 3=Patient will improve strength/tolerance for activity to enable patient to perform ADL's. OT Education/Plan Problem List/Assessment Assessment: Decreased Activ Tolerance, Impaired I ADL's, Impaired Self-Care Skills Discharge Recommendations Plan/Recommendations: Continue POC Therapy Discharge Recommendati: Home & Family, Post Acute OT Treatment Plan/Plan of Care Treatment,Training & Education: Yes Patient would benefit from OT for education, treatment and training to promote independence in ADL's, mobility, safety and/or upper extremity function for ADL's. Plan of Care: ADL Retraining, Functional Mobility, UE Funct Exercise/Act Treatment Duration: Mar 22, 2020 Frequency: At least 5 of 7 days/Wk (IRF) Estimated Hrs Per Day: 1.5 hours per day Agreement: Yes Rehab Potential: Good Time/GCodes Start Time: 13:20 Stop Time: 13:50 Total Time Billed (hr/min): 30 Billed Treatment Time 1, Ex x 15minutes, ADL x 15minutes MIGUEL AVALOS OT Mar 08, 2020 16:05
[2020-03-08 17:44] VITALS: BP 138/84
--- NOTE | 2020-03-08 18:27 | PM&R Post Admission Assessment ---
PM&R HP Date of Visit: Mar 08, 2020 Time of Visit: 11:30 History of Present Illness CC: Right-sided weakness with MRI inconclusive of new stroke HPI: This is a 64yoWF known to me from inpatient rehab hospital course in August of 2018 who has a history of poorly controlled DM and inoperable CAD, who presented to the ER after a two week history of right-sided weakness and she couldnt walk and she was falling out of bed. MRI revealed no evidence of new stroke but she met criteria for inpatient rehab, her creatinine remains stable at 1.59 due to chronic renal insufficiency and PT and OT will work on regaining some function in orders to return to independent living. She lives with her yordy saeed. Acute care Hospital course: Pt had a brief hospital course, she was admitted due to concern for a stroke with right-sided weakness in addition to her chronic deficit on the left side when she had sustained a stroke and spent time in inpatient rehab. Pt remains an out of control diabetic and appears to be very debilitated and declined since last seen in August of 2018. MRI did not show any new stroke but it appears that she cant walk and having significant problems with her right side so she will be admitted to inpatient rehab. Past Uxvzfuz-Hoikwh-Zezvok Hx Past Med/Social Hx: Reviewed Nursing Past Med/Soc Hx, Reviewed and Corrections made Patient Social History Marrital Status: single Employed/Student: unemployed Alcohol Use: Denies Use Smoking Status: Never a Smoker 2nd Hand Smoke Exposure: No Recent Hopitalizations: No Immunizations Up To Date Tetanus Booster (TDap): Less than 5yrs Date of Pneumonia Vaccine: Mar 07, 2014 Date of Influenza Vaccine: Jan 04, 2020 Seasonal Allergies Seasonal Allergies: No Past Medical History Surgeries: Gallbladder, Hysterectomy, Orthopedic, Tonsillectomy Respiratory: Sleep Apnea Currently Using CPAP: Yes Cardiac: Cardiomyopathy, Coronary Artery Disease, Heart Attack, High Cholesterol, Hypertension Neurological: Neuropathy, Stroke, Vertigo Reproductive: No Sexually Transmitted Disease: No HIV/AIDS: No Female Reproductive Disorders: Denies Genitourinary: Kidney Stones, Renal Failure Gastrointestinal: Gastroesophageal Reflux, Chronic Constipation Gastroparesis Musculoskeletal: Arthritis, Back Injury Endocrine: Diabetes, Insulin dep HEENT: Chronic Ear Infection Hearing Impairment: Hard of Hearing History of Blood Disorders: No Adverse Reaction to Blood [place]: No Family History Cancer (lung and ovarian) 09 BROTHER, Onset:30's - 40 09 SISTER, Onset:60 years & older Congenital heart disease (mitral valve prolapse) 09 SISTER 09 SISTER Congestive heart failure 03 FATHER, Onset:60 years & older 03 MOTHER, Onset:50's - 60 09 SISTER, Onset:60 years & older Family history: Arthritis 03 MOTHER, Onset:60 years & older Family history: Diabetes mellitus 03 FATHER, Onset:60 years & older 09 SISTER, Onset:50's - 60 Family history: Gastrointestinal disease 03 FATHER, Onset:50's - 60 Hereditary disease (HTN) 09 SISTER, Onset:40's - 50 History of - disorder (Urinary problems) 09 SISTER, Onset:60 years & older 09 SISTER, Onset:20's - 25 History of - respiratory disease (asthma) 09 SISTER Hypercholesterolemia 09 SISTER, Onset:50's - 60 Psychotic disorder (anxiety) 09 SISTER, Onset:30's - 40 Heart Disease Prior Level of Function Bed Mobility: 5 Transfers: 5 Gait: 5 Stairs: 5 Prior Devices Use: Walker Self Care: Needed Some Help Functional Cognition: Independent 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 had just finished her lunch. No difficulty reported.) Oral Hygiene: 7 (Declines at this time as she does not have her partial here. Family to bring it in.) Shower/Bathe Self: 7 (Pt. declines but states that she will do this in the a.m.) Upper Body Dressin Lower Body Dressin On/Off Footwear: 4 (SBA to don slipper socks.) Toileting Hygiene: 2 (Pt. has catheter at this time and declines having to use toilet for BM.) PM&R Allergy/Meds/Data Review Allergies Coded Allergies: celecoxib (Unverified Allergy, Unknown, 03/08/15) cinacalcet (Verified Allergy, Unknown, 03/07/20) clarithromycin (Verified Allergy, Unknown, 03/07/20) codeine (Verified Allergy, Unknown, 03/07/20) hydrocodone (Verified Allergy, Unknown, 03/07/20) levofloxacin (Verified Allergy, Unknown, 03/08/15) isosorbide (Verified Adverse Reaction, Unknown, severe hypotension, 03/08/15) Home Medications Scheduled Allopurinol (Allopurinol), 300 MG PO MON,FRI, (Reported) Aspirin (Aspirin EC), 81 MG PO DAILY, (Reported) Atenolol (Atenolol), 25 MG PO DAILY, (Reported) Clopidogrel Bisulfate (Clopidogrel), 75 MG PO DAILY, (Reported) Furosemide (Furosemide), 20 MG PO MoFr, (Reported) Insulin NPH Human Isophane (Novolin N), 66 UNITS SC DAILY, (Reported) Insulin NPH Human Isophane (Novolin N), 83 UNIT SQ HS, (Reported) Insulin Regular, Human (Novolin R), 10-20 UNIT SC TIDAC, (Reported) Magnesium Oxide (Magnesium), 400 MG PO DAILY, (Reported) Ranolazine (Ranexa), 1,000 MG PO BID, (Reported) Sertraline HCl (Sertraline HCl), 25 MG PO HS, (Reported) Scheduled PRN Losartan Potassium (Losartan Potassium), 50 MG PO DAILY PRN for BLOOD PRESSURE, (Reported) Meclizine HCl (Meclizine HCl), 25-50 MG PO DAILY PRN for DIZZINESS, (Reported) Metoclopramide HCl (Metoclopramide HCl), 10 MG PO BID PRN for NAUSEA/VOMITING- 3RD LINE, (Reported) Nitroglycerin (Nitroglycerin), 0.4 MG SL UD PRN for CHEST PAIN Oxybutynin Chloride (Oxybutynin Chloride ER), 5 MG PO DAILY PRN for URINARY INCONTIENCE, (Reported) Discontinued Medications Alendronate Sodium (Alendronate Sodium), 10 MG PO DAILY, (Reported) Discontinued Reason: No Longer Taking Allopurinol (Allopurinol), 300 MG PO DAILY, (Reported) Discontinued Reason: Duplicate Order Atorvastatin Calcium (Atorvastatin Calcium), 80 MG PO HS, (Reported) Discontinued Reason: No Longer Taking Cephalexin (Cephalexin), 500 MG PO BID Discontinued Reason: No Longer Taking Docusate Sodium (Colace), 100 MG PO BID, (Reported) Discontinued Reason: No Longer Taking Fenofibrate,Micronized (Fenofibrate), 54 MG PO HS Discontinued Reason: No Longer Taking Magnesium Oxide (Magnesium Oxide), 400 MG PO BID Discontinued Reason: Duplicate Order Meclizine HCl (Meclizine HCl), 25 MG PO PRN Discontinued Reason: Duplicate Order [Zolpidem Tartrate], 5 MG PO HS PRN for INSOMNIA Discontinued Reason: No Longer Taking Current Medications Current Medications Reviewed Review of Systems Constitutional: see HPI, malaise, weakness Psychiatric/Neurological: Weakness Physical Exam Physical Exam Vital Signs Vital Signs - First Documented 03/08/20 17:44 Temp 36.4 Pulse 63 Resp 20 B/P (MAP) 138/84 (102) Pulse Ox 99 O2 Delivery Room Air Capillary Refill : Height, Weight, BMI Height: 5'6.00" Weight: 220lbs. 10.0oz. [id number]; 31.45 BMI Method:Estimated General Appearance: No Apparent Distress, WD/WN, Chronically ill Eyes: Bilateral Eye Normal Inspection, Bilateral Eye PERRL HEENT: PERRL/EOMI, Normal ENT Inspection, Pharynx Normal Neck: Full Range of Motion, Normal Inspection, Non Tender, Supple, Carotid Bruit Respiratory: Chest Non Tender, Lungs Clear, Normal Breath Sounds, No Accessory Muscle Use, No Respiratory Distress Cardiovascular: Regular Rate, Rhythm, No Edema, No Gallop, No JVD, No Murmur, Normal Peripheral Pulses Gastrointestinal: Normal Bowel Sounds, No Organomegaly, No Pulsatile Mass, Non Tender, Soft Back: Normal Inspection, No CVA Tenderness, No Vertebral Tenderness Extremity: Normal Capillary Refill, Normal Inspection, Normal Range of Motion, Non Tender, No Calf Tenderness, No Pedal Edema Neurologic/Psychiatric: Alert, Oriented x3, Abnormal Gait, Depressed Affect, Facial Droop (right subtle finding), Motor Weakness (left 3/5 deficit old CVA 08/2018, right sided weakness 4/5 right leg 3/5 right arm) Skin: Normal Color, Warm/Dry Lymphatic: No Adenopathy PM&R Medical Assessment & Plan REHAB/MEDICAL ASSESSMENT AND PLAN: REHAB IMPAIRMENT GROUP: CVA deficits ETIOLOGIC DIAGNOSIS: CVA deficits The comorbidities that impact the patients function and/or functional outcome by: severe CAD inoperable, severe disability prior to new deficit, labile DM, depression REHAB PLAN: The patient is being admitted to our comprehensive inpatient rehabilitation facility and can tolerate the intensity of service consisting of at least: 180 minutes of therapy a day, 5 out of 7 days a week Rehab treatment will consist of: PT OT will focus on regaining right sided deficit present for 2 weeks but now causing difficulty ambulating and has increased risk for falls so therapy will initiate use of more AD in order to regain function The patient/family has a good understanding of our discharge process and will benefit from an interdisciplinary inpatient rehabilitation program. The patient has potential to make improvement and is in need of at least two of the following multidisciplinary therapies including but not limited to physical, o ccupational, speech, and prosthetics and orthotics. Additionally the patient will need services from respiratory, nutritional services, wound care, psychology, etc. (Customize this to each patient). Given the patients complex condition and risk of further medical complications, rehabilitation services cannot be safely or effectively provided at a lower level of care such as a [facility]. BARRIERS TO DISCHARGE: Severe inoperable CAD with severe chronic debility ESTIMATED LOS: 10 days DISPOSITION: Home with daughter RELEVANT CHANGES SINCE PREADMISSION SCREENING: I have compared the patients medical and functional status at the time of the preadmission screening and there are: no changes PROGNOSIS: Fair REHABILITATION GOALS: 1. PT OT will focus on regaining right sided deficit present for 2 weeks but now causing difficulty ambulating and has increased risk for falls so therapy will initiate use of more AD in order to regain function All the above goals were reviewed with the patient and he/she is in agreement. By signing this document, I acknowledge that I have personally performed a full physical examination on this patient within 24 hours of admission to this inpatient rehabilitation facility and have determined the patient to be able to tolerate the above course of treatment at an intensive level for a reasonable period of time. I will be completing a detailed individualized Plan of Care for this patient by day #4 of the patients stay based upon the Preadmission Screen, the Post-Admission Evaluation, and the therapy evaluations. Admission Dx/Comorbidities: (1) Weakness Status: Acute ICD Codes: R53.1 - Weakness (2) CVA (cerebral vascular accident) ICD Codes: I63.9 - Cerebral infarction, unspecified (3) TIA (transient ischemic attack) Status: Acute ICD Codes: G45.9 - Transient cerebral ischemic attack, unspecified (4) Hyperglycemia due to diabetes mellitus Status: Acute ICD Codes: E11.65 - Type 2 diabetes mellitus with hyperglycemia (5) Insomnia ICD Codes: G47.00 - Insomnia, unspecified (6) Left hemiparesis ICD Codes: G81.94 - Hemiplegia, unspecified affecting left nondominant side (7) Gastroparesis ICD Codes: K31.84 - Gastroparesis (8) Hypertension Status: Acute ICD Codes: I10 - Essential (primary) hypertension (9) GERD (gastroesophageal reflux disease) ICD Codes: K21.9 - Gastro-esophageal reflux disease without esophagitis (10) Renal insufficiency ICD Codes: N28.9 - Disorder of kidney and ureter, unspecified (11) Neuropathy ICD Codes: G62.9 - Polyneuropathy, unspecified (12) Hyperlipemia ICD Codes: E78.5 - Hyperlipidemia, unspecified (13) Osteoporosis ICD Codes: M81.0 - Age-related osteoporosis without current pathological fracture (14) CAD (coronary artery disease) ICD Codes: I25.10 - Atherosclerotic heart disease of [place] coronary artery without angina pectoris (15) Diabetes mellitus ICD Codes: E11.9 - Type 2 diabetes mellitus without complications (16) Constipation ICD Codes: K59.00 - Constipation, unspecified (17) Dizziness Status: Acute ICD Codes: R42 - Dizziness and giddiness Assessment/Plan Assessment and Plan Assess & Plan/Chief Complaint Assessment: Right sided weakness with facial droop now improved not a tPa candidate per Stroke center [facility] MRI inconclusive for new CVA CVA w/residual left facial droop and left upper and lower extremity weakness August 2018 s/p IRF course DM poorly controlled 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 at [facility] 2014 HTN HLP CRI Insomnia GERD Gastroparesis OP Neuropathy Plan: IRF protocol Home meds Accuchecks SSI Monitor closely JAG KIRKLAND DO Mar 08, 2020 18:27
[2020-03-08] MEDS ORDERED: NITROGLYCERIN 0.4 MG SL TABS BTL 25'S SL PRN (18:30)
[2020-03-08] MEDS ORDERED: LOSARTAN 50 MG (COZAAR) TAB PO PRN (18:30)
[2020-03-08] MEDS ORDERED: OXYBUTYNIN ER 5 MG (DITROPAN XL) TAB NON-FORMULARY PO PRN (18:30)
[2020-03-08] MEDS ORDERED: OXYBUTYNIN (DITROPAN) 5 MG TAB PO PRN (19:00)
--- NOTE | 2020-03-08 19:21 | NUR ---
Bedside report received from ELIDIA RANDOLPH, assume care of pt
[2020-03-08] MEDS ORDERED: NON-FORMULARY MEDICATION 1 EA EA (Ranolazine (Ranexa) 1,000 MG) PO SCH (21:00)
[2020-03-08] MEDS ORDERED: NON-FORMULARY MEDICATION 1 EA EA (Sertraline HCl 25 MG) PO SCH (21:00)
[2020-03-08] MEDS ORDERED: inSUlin NPH (NovoLIN N) 1 UNIT/0.01 ML (CHARGE PER UNIT) SQ SCH (21:00)
[2020-03-08] MEDS: RANOLAZINE ER 500 MG TAB (RANEXA) PO SCH (21:01)
--- NOTE | 2020-03-08 21:01 | NUR ---
Pt refused Colace, Miralax & Senokot states Reglan works better for me, Pt given Reglan 10mg given, fsbs with Pt own meter 157, scheduled Novolin N 83 units with hs snack given
[2020-03-08] MEDS: SERTRALINE 50 MG (ZOLOFT) TABLET PO SCH (21:02)
[2020-03-08] MEDS: METOCLOPRAMIDE 10 MG (REGLAN) TAB PO PRN (21:02)
[2020-03-08] MEDS: ENOXAPARIN 40 MG/0.4 ML (LOVENOX) SYR SC SCH (21:04)
[2020-03-08] MEDS: DOCUSATE SODIUM 100 MG (COLACE) CAP PO SCH (21:08)
[2020-03-08] MEDS: polyethylene glycoL POWDER 17 GM (MIRALAX) PACK PO SCH (21:09)
[2020-03-08] MEDS: SENNA W/DOCUSATE (SENOKOT S) TABLET PO SCH (21:09)
[2020-03-09 04:14] LABS: BASOPHILS # (AUTO) 0.1 10^3/uL (0.0-0.1); BASOPHILS % (AUTO) 0 % (0-10); EOSINOPHILS # (AUTO) 0.1 10^3/uL (0.0-0.3); EOSINOPHILS % (AUTO) 1 % (0-10); HEMATOCRIT 38 % (35-52); LYMPHOCYTES # (AUTO) 6.5 10^3/uL (1.0-4.0); LYMPHOCYTES % (AUTO) 48 % (12-44); MEAN CORPUSCULAR HEMOGLOBIN 33 pg (25-34); MEAN CORPUSCULAR HGB CONC 34 g/dL (32-36); MEAN CORPUSCULAR VOLUME 97 fL (80-99); MEAN PLATELET VOLUME 11.6 fL (9.0-12.2); MONOCYTES # (AUTO) 1.1 10^3/uL (0.0-1.0); MONOCYTES % (AUTO) 8 % (0-12); NEUTROPHILS # (AUTO) 5.8 10^3/uL (1.8-7.8); NEUTROPHILS % (AUTO) 42 % (42-75); PLATELET COUNT 192 10^3/uL (130-400); WHITE BLOOD COUNT 13.7 10^3/uL (4.3-11.0)
[2020-03-09 04:28] LABS: ALBUMIN 3.9 GM/DL (3.2-4.5); POTASSIUM 4.1 MMOL/L (3.6-5.0)
[2020-03-09 04:29] LABS: CALCIUM 10.2 MG/DL (8.5-10.1)
[2020-03-09 04:31] LABS: TOTAL PROTEIN 6.8 GM/DL (6.4-8.2)
[2020-03-09 04:32] LABS: BILIRUBIN,TOTAL 0.5 MG/DL (0.1-1.0)
[2020-03-09 04:34] LABS: CREATININE SERUM 1.54 MG/DL (0.60-1.30)
[2020-03-09 05:52] VITALS: BP 144/84
[2020-03-09] MEDS ORDERED: inSUlin (REGULAR) HUMAN 1 UNIT/0.01 ML (CHARGE PER UNIT) SC SCH (07:00)
--- NOTE | 2020-03-09 08:48 | Occupational Ther Daily Note ---
OT Current Status-Daily Note Subjective Pt AxO, agrees to therapy. Denies pain, states fatigue/ generalized weakness since stroke. Pt states a decreased confidence in balance. Pt able to maintain fair energy through session. Mental Status/Objective Patient Orientation: Person, Place, Situation, Normal For Age Attachments: Leiva Catheter ADL-Treatment Therapy Code Descriptions/Definitions Functional [place] Measure: 0=Not Assessed/NA 4=Minimal Assistance 1=Total Assistance 5=Supervision or Setup 2=Maximal Assistance 6=Modified [place] 3=Moderate Assistance 7=Complete IndependenceSCALE: Activities may be completed with or without assistive devices. 1-Uyanbzwdlh-lxqjbxh completes the activity by him/herself with no assistance from a helper. 5-Set-up or Clean-up Assistance-helper sets up or cleans up; patient completes activity. [place] assists only prior to or following the activity. 4-Supervision or Touching Assistance-helper provides verbal cues and/or touching/steadying and/or contact guard assistance as patient completes activity. Assistance may be provided throughout the activity or intermittently. 3-Partial/Moderate Assistance-helper does LESS THAN HALF the effort. [place] lifts, holds or supports trunk or limbs, but provides less than half the effort. 2-Substantial/Maximal Assistance-helper does MORE THAN HALF the effort. [place] lifts or holds trunk or limbs and provides more than half the effort. 3-Pklxxdvtz-lbsabp does ALL the effort. Patient does none of the effort to complete the activity. Or, the assistance of 2 or more helpers is required for the patient to complete the activity. If activity was not attempted, code reason: 7-Patient Refused. 9-Not Applicable-not attempted and the patient did not perform the activity before the current illness, exacerbation or injury. 10-Not Attempted due to Environmental Limitations-(lack of equipment, weather restraints, etc.). 88-Not Attempted due to Medical Conditions or Safety Concerns. Eating (QC): 5 (Pt able to eat IND, though requires assist with food containers at times per pt. ) Oral Hygiene (QC): 6 (completes with IND in front of sink, seated in w/c. ) Bathing Location: L Arm, R Arm, L Upper Leg, R Upper Leg, L Lower Leg (including foot), R Lower Leg (including foot), Chest, Abdomen, Buttocks, Perineal Area Shower/Bathe Self (QC): 4 (SBA for bathing/ bottom care. SUP for ) Upper Body Dressing (QC): 5 (s/u, completes while sitting upright in sc.) Lower Body Dressing (QC): 3 (min A for threading RLE due to cathether, however, pt is able to thread BLE per clinical judgement and complete sit to stand/ pant hike over hips with SBA-CGA.) On/Off Footwear: 4 (SBA for socks/ slippers in chair.) Toileting Hygiene (QC): 4 (SBA bottom care in stance in shower, pt completes mariza care after attempted BM on toilet with IND.) Toilet Transfer (QC): 4 (SBA, use of walker) Other Treatment Pt completes bed mob with IND. Pt states has "hospital-like bed at home." Pt agrees to showering/ dressing, completes as outlined with cues for shower transfer. Pt has good safety awareness throughout, requires increased time for all tasks. Pt completes hair grooming standing at sink with noted L side leaning/ trunk rotation, though fair+ balance throughout. Pt completes oral care with IND in front of sink- able to manipulate new toothbrush wrapper and toothpaste effectively. Pt ambulates senior living to therapy gym with one instance of L foot inversion- pt's slipper slightly doffed during this task, pt states she isn't fully able to feel the foot. Pt doffs slippers in stance with OT's recommendation, takes 2 min rest, and ambulates to gym with no instance of inversion of L foot. Pt sits EOM to complete fine motor manipulation/ coordination/ strengthening with education of purpose/ process and yellow to red theraputty. Pt demonstrates slight shaking with fatigue to R hand. Pt rests, ambulates senior living to room from gym, states arm are "going to give out, I put too much pressure through them." Pt rests, pt and OT discuss daily routine (get up, go to other daughter's home, watch TV, etc). Pt stands/ ambulates to room stating arms are a bit better. Pt sits in recliner, all needs met, call light in reach. Education OT Patient Education: Correct positioning, Exercise program, Home exercise program, Modified ADL techniques, Purpose of tx/functional activities, Rehab process, Safety issues Teaching Recipient: Patient Teaching Methods: Demonstration, Discussion Response to Teaching: Verbalize Understanding, Return Demonstration OT Short Term Goals Short Term Goals Time Frame: Mar 15, 2020 Eatin Oral hygiene: 4 Toileting hygiene: 4 Shower/bathe self: 3 Upper body dressin Lower body dressin Putting on/taking off footwear: 4 OT [employer] Goals [employer] Goals Time Frame: Mar 22, 2020 Eating (QC): 6 Oral Hygiene (QC): 6 Toileting Hygiene (QC): 6 Shower/Bathe Self (QC): 4 Upper Body Dressing (QC): 5 Lower Body Dressing (QC): 5 On/Off Footwear (QC): 5 Additional Goals: 1-Demonstrate ADL Tasks, 2-Verbalize Understanding, 3-ImproveStrength/Ruthie 1=Demonstrate adherence to instructed precautions during ADL tasks. 2=Patient will verbalize/demonstrate understanding of assistive devices/modifications for ADL. 3=Patient will improve strength/tolerance for activity to enable patient to perform ADL's. OT Education/Plan Problem List/Assessment Assessment: Decreased Activ Tolerance, Decreased UE Strength, Dependent Transfers, Impaired Funct Balance, Impaired I ADL's, Impaired Self-Care Skills Discharge Recommendations Plan/Recommendations: Continue POC Therapy Discharge Recommendati: Home & Family Treatment Plan/Plan of Care Treatment,Training & Education: Yes Patient would benefit from OT for education, treatment and training to promote independence in ADL's, mobility, safety and/or upper extremity function for ADL's. Plan of Care: ADL Retraining, Functional Mobility, UE Funct Exercise/Act Treatment Duration: Mar 22, 2020 Frequency: At least 5 of 7 days/Wk (IRF) Estimated Hrs Per Day: 1.5 hours per day Agreement: Yes Rehab Potential: Good Time/GCodes Start Time: 07:50 Stop Time: 09:25 Total Time Billed (hr/min): 95 Billed Treatment Time 1, ADL 4 (60), NM (20), EX (15) = 95 FELIX CADENA OTR Mar 09, 2020 08:48
--- NOTE | 2020-03-09 08:53 | PM&R Progress Note ---
Subjective HPI/CC On Admission Date Seen by Provider: Mar 09, 2020 Time Seen by Provider: 08:30 Subjective/Events-last exam 03/09/20: Insomnia noted last night but she did run low on her blood sugar so will adjust her insulin down today Used her CPAP last night Short-term memory loss noted Has Carlene glucose monitoring system in place Review of Systems Neurological: Weakness, Incoordination Objective Exam Vital Signs Vital Signs Date Time Temp Pulse Resp B/P (MAP) Pulse Ox O2 Delivery O2 Flow Rate FiO2 03/09/20 20:45 Room Air 03/09/20 15:50 36.5 73 16 139/78 (98) 100 Capillary Refill : Less Than 3 SecondsLess Than 3 Seconds General Appearance: No Apparent Distress, WD/WN, Chronically ill HEENT: PERRL/EOMI, Normal ENT Inspection, Pharynx Normal Neck: Full Range of Motion, Normal Inspection, Non Tender, Supple, Carotid Bruit Respiratory: Chest Non Tender, Lungs Clear, Normal Breath Sounds, No Accessory Muscle Use, No Respiratory Distress Cardiovascular: Regular Rate, Rhythm, No Edema, No Gallop, No JVD, No Murmur, Normal Peripheral Pulses Gastrointestinal: Normal Bowel Sounds, No Organomegaly, No Pulsatile Mass, Non Tender, Soft Back: Normal Inspection, No CVA Tenderness, No Vertebral Tenderness Extremity: Normal Capillary Refill, Normal Inspection, Normal Range of Motion, Non Tender, No Calf Tenderness, No Pedal Edema Neurologic/Psychiatric: Alert, Oriented x3, Abnormal Gait, Depressed Affect, Facial Droop (right subtle finding), Motor Weakness (left 3/5 deficit old CVA 08/2018, right sided weakness 4/5 right leg 3/5 right arm) Skin: Normal Color, Warm/Dry Lymphatic: No Adenopathy Results/Procedures Lab Patient resulted labs reviewed. FIM Transfers Therapy Code Descriptions/Definitions Functional [place] Measure: 0=Not Assessed/NA 4=Minimal Assistance 1=Total Assistance 5=Supervision or Setup 2=Maximal Assistance 6=Modified [place] 3=Moderate Assistance 7=Complete IndependenceSCALE: Activities may be completed with or without assistive devices. 7-Kiyqvmhjcn-sssoqnx completes the activity by him/herself with no assistance from a helper. 5-Set-up or Clean-up Assistance-helper sets up or cleans up; patient completes activity. [place] assists only prior to or following the activity. 4-Supervision or Touching Assistance-helper provides verbal cues and/or touching/steadying and/or contact guard assistance as patient completes activity. Assistance may be provided throughout the activity or intermittently. 3-Partial/Moderate Assistance-helper does LESS THAN HALF the effort. [place] lifts, holds or supports trunk or limbs, but provides less than half the effort. 2-Substantial/Maximal Assistance-helper does MORE THAN HALF the effort. [place] lifts or holds trunk or limbs and provides more than half the effort. 8-Ezvovjpcy-hgdtuv does ALL the effort. Patient does none of the effort to complete the activity. Or, the assistance of 2 or more helpers is required for the patient to complete the activity. If activity was not attempted, code reason: 7-Patient Refused. 9-Not Applicable-not attempted and the patient did not perform the activity before the current illness, exacerbation or injury. 10-Not Attempted due to Environmental Limitations-(lack of equipment, weather restraints, etc.). 88-Not Attempted due to Medical Conditions or Safety Concerns. Roll Left to Right (QC): 5 Sit to Lying (QC): 4 Sit to Stand (QC): 4 Chair/Cbd-ki-Jplew Xfer(QC): 4 Car Transfer (QC): 4 Gait Training Does the Patient Walk?: Yes Distance: 150' x 4 Walk 10 feet (QC): 4 Walk 50 ft with 2 Turns(QC): 4 Walk 150 ft (QC): 4 Walking 10ft/uneven surface-QC: 4 Gait Assistive Device: FWW Wheelchair Training Wheel 50 ft with 2 turns (QC): 4 Wheel 150 ft (QC): 88 Stair Training #of Steps: 1 1 Step (curb) (QC): 4 4 Steps (QC): 88 12 Steps (QC): 88 Balance Picking up an Object (QC): 4 ADL-Treatment Eating (QC): 5 (Pt able to eat IND, though requires assist with food containers at times per pt. ) Oral Hygiene (QC): 6 (completes with IND in front of sink, seated in w/c. ) Bathing Location: L Arm, R Arm, L Upper Leg, R Upper Leg, L Lower Leg (including foot), R Lower Leg (including foot), Chest, Abdomen, Buttocks, Perineal Area Shower/Bathe Self (QC): 4 (SBA for bathing/ bottom care. SUP for ) Upper Body Dressing (QC): 88 Lower Body Dressing (QC): 88 On/Off Footwear (QC): 4 (SBA to don slipper socks.) Toileting Hygiene (QC): 2 (Pt. has catheter at this time and declines having to use toilet for BM.) Assessment/Plan Assessment and Plan Assess & Plan/Chief Complaint Assessment: Right sided weakness with facial droop now improved not a tPa candidate per Stroke center 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 at [facility] 2014 HTN HLP CRI Insomnia GERD Gastroparesis OP Neuropathy Hypoglycemia Plan: IRF protocol Home meds Accuchecks SSI Monitor closely 03/09/20: Monitor ambulation Increase use of AD Decrease insulin due to hypoglycemia (1) Weakness Status: Acute (2) CVA (cerebral vascular accident) (3) TIA (transient ischemic attack) Status: Acute (4) Hyperglycemia due to diabetes mellitus Status: Acute (5) Insomnia (6) Left hemiparesis (7) Gastroparesis (8) Hypertension Status: Acute (9) GERD (gastroesophageal reflux disease) (10) Renal insufficiency (11) Neuropathy (12) Hyperlipemia (13) Osteoporosis (14) CAD (coronary artery disease) (15) Diabetes mellitus (16) Constipation (17) Dizziness Status: Acute JAG KIRKLAND DO Mar 09, 2020 08:53
--- NOTE | 2020-03-09 08:54 | PM&R Progress Note ---
Subjective HPI/CC On Admission Date Seen by Provider: Mar 09, 2020 Objective Exam Vital Signs Vital Signs Date Time Temp Pulse Resp B/P (MAP) Pulse Ox O2 Delivery O2 Flow Rate FiO2 03/09/20 05:52 36.5 65 18 144/84 (104) 95 Room Air Capillary Refill : Less Than 3 SecondsLess Than 3 Seconds General Appearance: No Apparent Distress, WD/WN, Chronically ill HEENT: PERRL/EOMI, Normal ENT Inspection, Pharynx Normal Neck: Full Range of Motion, Normal Inspection, Non Tender, Supple, Carotid Bruit Respiratory: Chest Non Tender, Lungs Clear, Normal Breath Sounds, No Accessory Muscle Use, No Respiratory Distress Cardiovascular: Regular Rate, Rhythm, No Edema, No Gallop, No JVD, No Murmur, Normal Peripheral Pulses Gastrointestinal: Normal Bowel Sounds, No Organomegaly, No Pulsatile Mass, Non Tender, Soft Back: Normal Inspection, No CVA Tenderness, No Vertebral Tenderness Extremity: Normal Capillary Refill, Normal Inspection, Normal Range of Motion, Non Tender, No Calf Tenderness, No Pedal Edema Neurologic/Psychiatric: Alert, Oriented x3, Abnormal Gait, Depressed Affect, Facial Droop (right subtle finding), Motor Weakness (left 3/5 deficit old CVA 08/2018, right sided weakness 4/5 right leg 3/5 right arm) Skin: Normal Color, Warm/Dry Lymphatic: No Adenopathy Results/Procedures Lab Laboratory Tests 03/09/20 04:02 Patient resulted labs reviewed. FIM Transfers Therapy Code Descriptions/Definitions Functional [place] Measure: 0=Not Assessed/NA 4=Minimal Assistance 1=Total Assistance 5=Supervision or Setup 2=Maximal Assistance 6=Modified [place] 3=Moderate Assistance 7=Complete IndependenceSCALE: Activities may be completed with or without assistive devices. 7-Qqdapucfbz-qrmozda completes the activity by him/herself with no assistance from a helper. 5-Set-up or Clean-up Assistance-helper sets up or cleans up; patient completes activity. [place] assists only prior to or following the activity. 4-Supervision or Touching Assistance-helper provides verbal cues and/or touching/steadying and/or contact guard assistance as patient completes activity. Assistance may be provided throughout the activity or intermittently. 3-Partial/Moderate Assistance-helper does LESS THAN HALF the effort. [place] lifts, holds or supports trunk or limbs, but provides less than half the effort. 2-Substantial/Maximal Assistance-helper does MORE THAN HALF the effort. [place] l ifts or holds trunk or limbs and provides more than half the effort. 2-Yujhdfxgc-mofiql does ALL the effort. Patient does none of the effort to complete the activity. Or, the assistance of 2 or more helpers is required for the patient to complete the activity. If activity was not attempted, code reason: 7-Patient Refused. 9-Not Applicable-not attempted and the patient did not perform the activity before the current illness, exacerbation or injury. 10-Not Attempted due to Environmental Limitations-(lack of equipment, weather restraints, etc.). 88-Not Attempted due to Medical Conditions or Safety Concerns. Roll Left to Right (QC): 5 Sit to Lying (QC): 4 Sit to Stand (QC): 4 Chair/Rsf-vx-Qehgj Xfer(QC): 4 Car Transfer (QC): 4 Gait Training Does the Patient Walk?: Yes Distance: 150' x 4 Walk 10 feet (QC): 4 Walk 50 ft with 2 Turns(QC): 4 Walk 150 ft (QC): 4 Walking 10ft/uneven surface-QC: 4 Gait Assistive Device: FWW Wheelchair Training Wheel 50 ft with 2 turns (QC): 4 Wheel 150 ft (QC): 88 Stair Training #of Steps: 1 1 Step (curb) (QC): 4 4 Steps (QC): 88 12 Steps (QC): 88 Balance Picking up an Object (QC): 4 ADL-Treatment Eating (QC): 5 (Pt able to eat IND, though requires assist with food containers at times per pt. ) Oral Hygiene (QC): 6 (completes with IND in front of sink, seated in w/c. ) Bathing Location: L Arm, R Arm, L Upper Leg, R Upper Leg, L Lower Leg (including foot), R Lower Leg (including foot), Chest, Abdomen, Buttocks, Perineal Area Shower/Bathe Self (QC): 4 (SBA for bathing/ bottom care. SUP for ) Upper Body Dressing (QC): 88 Lower Body Dressing (QC): 88 On/Off Footwear (QC): 4 (SBA to don slipper socks.) Toileting Hygiene (QC): 2 (Pt. 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 2014 HTN HLP CRI Insomnia GERD Gastroparesis OP Neuropathy Plan: IRF protocol Home meds Accuchecks SSI Monitor closely (1) Weakness Status: Acute (2) CVA (cerebral vascular accident) (3) TIA (transient ischemic attack) Status: Acute (4) Hyperglycemia due to diabetes mellitus Status: Acute (5) Insomnia (6) Left hemiparesis (7) Gastroparesis (8) Hypertension Status: Acute (9) GERD (gastroesophageal reflux disease) (10) Renal insufficiency (11) Neuropathy (12) Hyperlipemia (13) Osteoporosis (14) CAD (coronary artery disease) (15) Diabetes mellitus (16) Constipation (17) Dizziness Status: Acute JAG KIRKLAND DO Mar 09, 2020 08:54
[2020-03-09] MEDS ORDERED: NON-FORMULARY MEDICATION 1 EA EA (Magnesium Oxide (Magnesium) 400 MG) PO SCH (09:00)
[2020-03-09] MEDS ORDERED: inSUlin NPH (NovoLIN N) 1 UNIT/0.01 ML (CHARGE PER UNIT) SQ SCH (09:00)
[2020-03-09] MEDS: MAGNESIUM OXIDE (MAG-OX)400 MG TAB PO SCH (09:35)
[2020-03-09] MEDS: DOCUSATE SODIUM 100 MG (COLACE) CAP PO SCH ×2 (09:35→21:35)
[2020-03-09] MEDS: ASPIRIN E.C. 81 MG (ECOTRIN) TAB PO SCH (09:36)
[2020-03-09] MEDS: ATENOLOL 25 MG (TENORMIN) TAB PO SCH (09:36)
[2020-03-09] MEDS: CLOPIDOGREL 75 MG (PLAVIX) TABLET PO SCH (09:36)
[2020-03-09] MEDS: SENNA W/DOCUSATE (SENOKOT S) TABLET PO SCH ×2 (09:36→21:35)
[2020-03-09] MEDS: ALLOPURINOL 300 MG (ZYLOPRIM) TAB PO SCH (09:36)
[2020-03-09] MEDS: RANOLAZINE ER 500 MG TAB (RANEXA) PO SCH ×2 (09:37→21:36)
--- NOTE | 2020-03-09 09:40 | NUR ---
Advised pt that her family could take her meds that are in the clear box home with them. Pt stated that she will let them know, didn't think that they would be coming out to bring her anything today, but will let them know. Pt's meds in clear tote in closet.
[2020-03-09] MEDS: polyethylene glycoL POWDER 17 GM (MIRALAX) PACK PO SCH ×2 (09:42→21:35)
[2020-03-09] MEDS: METOCLOPRAMIDE 10 MG (REGLAN) TAB PO PRN (09:53)
[2020-03-09] MEDS: inSUlin (REGULAR) HUMAN 1 UNIT/0.01 ML (CHARGE PER UNIT) SC SCH ×2 (12:18→17:23)
--- NOTE | 2020-03-09 12:26 | Physical Therapy Daily Note ---
PT Daily Note-Current Subjective Pt sitting in recliner upon arrival. Pt agrees to PT. Mental Status Patient Orientation: Person, Place, Situation Attachments: Leiva Catheter Transfers SCALE: Activities may be completed with or without assistive devices. 3-Npvkitqxtw-bgtqxxf completes the activity by him/herself with no assistance from a helper. 5-Set-up or Clean-up Assistance-helper sets up or cleans up; patient completes activity. [place] assists only prior to or following the activity. 4-Supervision or Touching Assistance-helper provides verbal cues and/or touching/steadying and/or contact guard assistance as patient completes a ctivity. Assistance may be provided throughout the activity or intermittently. 3-Partial/Moderate Assistance-helper does LESS THAN HALF the effort. [place] lifts, holds or supports trunk or limbs, but provides less than half the effort. 2-Substantial/Maximal Assistance-helper does MORE THAN HALF the effort. [place] lifts or holds trunk or limbs and provides more than half the effort. 0-Dlzbyzqdr-ordngt does ALL the effort. Patient does none of the effort to complete the activity. Or, the assistance of 2 or more helpers is required for the patient to complete the activity. If activity was not attempted, code reason: 7-Patient Refused. 9-Not Applicable-not attempted and the patient did not perform the activity before the current illness, exacerbation or injury. 10-Not Attempted due to Environmental Limitations-(lack of equipment, weather restraints, etc.). 88-Not Attempted due to Medical Conditions or Safety Concerns. Sit to Stand (QC): 5 Weight Bearing Full Weight Bearing Full Weight Bearing Gait Training Does the Patient Walk?: Yes Distance: 150', 250' Walk 10 feet (QC): 5 Walk 50 ft with 2 Turns(QC): 5 Walk 150 ft (QC): 5 Gait Persons Needed: 1 Gait Assistive Device: FWW Slow but steady joy, no LOB Wheelchair Training Does the Pt Use a Wheelchair?: No Exercises Seated Therapy Exercises: Ankle pumps, Long arc quads, Hip flexion, Kicking activity Seated Reps: 15 NuStep Minutes: 11 NuStep Workload: 4 Treatments TF to standing then amb. in hallway. Uses NuStep for 11m at WL 4 as well as completes Seated EX. Amb. in hallway before returning to room to rest in recliner. Declines needing BR. All needs met, call light in hand. Assessment Current Status: Good Progress Pt ne. tx well but does need occasional RB due to fatigue. PT Short Term Goals Short Term Goals Time Frame: Mar 15, 2020 Roll Left & Right: 6 Sit to lyin Lying to sitting on side of be: 4 Sit to stand: 4 Chair/vms-tz-kuabg transfer: 4 Walk 10 feet: 4 Walk 50 feet with two turns: 4 Walk 150 feet: 4 PT Senior Living Goals Explosives Mixer Operator Goals PT Senior Living Goals Time Frame: Mar 29, 2020 Roll Left & Right (QC): 6 Sit to Lying (QC): 6 Lying-Sitting on Side/Bed(QC): 6 Sit to Stand (QC): 6 Chair/Nah-lf-Xvzvh Xfer(QC): 6 Toilet Transfer (QC): 6 Car Transfer (QC): 6 Does the Patient Walk: Yes Walk 10 feet (QC): 6 Walk 50ft with 2 Turns (QC): 6 Walk 150 ft (QC): 6 Walking 10ft on Uneven Surface: 6 1 Step (curb) (QC): 4 4 Steps (QC): 4 12 Steps (QC): 88 Picking up an Object (QC): 4 Wheel 50 feet with 2 turns (QC: 9 Wheel 150 feet: 9 PT Plan Problem List Problem List: Activity Tolerance, Functional Strength Treatment/Plan Treatment Plan: Continue Plan of Care Treatment Plan: Bed Mobility, Education, Functional Activity Ruthie, Functional Strength, Group Therapy, Gait, Safety, Therapeutic Exercise, Transfers Treatment Duration: Mar 29, 2020 Frequency: At least 5 of 7 days/Wk (IRF) Estimated Hrs Per Day: 1.5 hours per day Patient and/or Family Agrees t: Yes Safety Risks/Education Patient Education: Gait Training, Transfer Techniques, Correct Positioning, Safety Issues Teaching Recipient: Patient Teaching Methods: Discussion Response to Teaching: Verbalize Understanding Time/GCodes Time In: 1100 Time Out: 1200 Total Billed Treatment Time: 60 Total Billed Treatment 1, GT (20m), EX x2 (30m) & FA (10m) HIMANSHU RODRIGUEZ SURGICAL BRACE MAKER Mar 09, 2020 12:26
--- NOTE | 2020-03-09 13:56 | Physical Therapy Daily Note ---
PT Daily Note-Current Subjective Patient agrees to PT. No c/o. Mental Status Patient Orientation: Normal For Age Transfers SCALE: Activities may be completed with or without assistive devices. 0-Csyrynwteg-fnhhxpl completes the activity by him/herself with no assistance from a helper. 5-Set-up or Clean-up Assistance-helper sets up or cleans up; patient completes activity. [place] assists only prior to or following the activity. 4-Supervision or Touching Assistance-helper provides verbal cues and/or touching/steadying and/or contact guard assistance as patient completes activity. Assistance may be provided throughout the activity or intermittently. 3-Partial/Moderate Assistance-helper does LESS THAN HALF the effort. [place] lifts, holds or supports trunk or limbs, but provides less than half the effort. 2-Substantial/Maximal Assistance-helper does MORE THAN HALF the effort. [place] lifts or holds trunk or limbs and provides more than half the effort. 6-Gqjnmukjf-hnitqd does ALL the effort. Patient does none of the effort to c omplete the activity. Or, the assistance of 2 or more helpers is required for the patient to complete the activity. If activity was not attempted, code reason: 7-Patient Refused. 9-Not Applicable-not attempted and the patient did not perform the activity before the current illness, exacerbation or injury. 10-Not Attempted due to Environmental Limitations-(lack of equipment, weather restraints, etc.). 88-Not Attempted due to Medical Conditions or Safety Concerns. Sit to Stand (QC): 5 Weight Bearing Full Weight Bearing Full Weight Bearing Gait Training Does the Patient Walk?: Yes Distance: 250' x 2 Walk 10 feet (QC): 5 Walk 50 ft with 2 Turns(QC): 5 Walk 150 ft (QC): 5 Gait Assistive Device: FWW no deviation/functional gait sequence Exercises Seated Therapy Exercises: Ankle pumps, Long arc quads, Hip flexion Seated Reps: 15 NuStep Minutes: 10 NuStep Workload: 4 (to improve functional mobility/endurance) Assessment Patient improving with treatment plan. Continues to have Fair endurance with activity/program. PT Short Term Goals Short Term Goals Time Frame: Mar 15, 2020 Roll Left & Right: 6 Sit to lyin Lying to sitting on side of be: 4 Sit to stand: 4 Chair/jne-yq-gfvax transfer: 4 Walk 10 feet: 4 Walk 50 feet with two turns: 4 Walk 150 feet: 4 PT Assisted Goals Chain Builder Goals PT Assisted Goals Time Frame: Mar 29, 2020 Roll Left & Right (QC): 6 Sit to Lying (QC): 6 Lying-Sitting on Side/Bed(QC): 6 Sit to Stand (QC): 6 Chair/Klc-bm-Uljza Xfer(QC): 6 Toilet Transfer (QC): 6 Car Transfer (QC): 6 Does the Patient Walk: Yes Walk 10 feet (QC): 6 Walk 50ft with 2 Turns (QC): 6 Walk 150 ft (QC): 6 Walking 10ft on Uneven Surface: 6 1 Step (curb) (QC): 4 4 Steps (QC): 4 12 Steps (QC): 88 Picking up an Object (QC): 4 Wheel 50 feet with 2 turns (QC: 9 Wheel 150 feet: 9 PT Plan Treatment/Plan Treatment Plan: Continue Plan of Care Treatment Plan: Bed Mobility, Education, Functional Activity Ruthie, Functional Strength, Group Therapy, Gait, Safety, Therapeutic Exercise, Transfers Treatment Duration: Mar 29, 2020 Frequency: At least 5 of 7 days/Wk (IRF) Estimated Hrs Per Day: 1.5 hours per day Patient and/or Family Agrees t: Yes Time/GCodes Time In: 1320 Time Out: 1350 Total Billed Treatment Time: 30 Total Billed Treatment 1 visit GT 15 min EX 15 min PANKAJ WELLER PT Mar 09, 2020 13:56
--- NOTE | 2020-03-09 14:02 | NUR ---
Notified Dr. Goodrich that pt has been asking if her IV & rodriguez catheter could be removed ? Rec'd orders for this.
[2020-03-09] MEDS: MECLIZINE 25 MG (ANTIVERT) TAB PO PRN (14:56)
--- NOTE | 2020-03-09 15:24 | NUR ---
CM/SS ADMISSION Patient was admitted to [facility] 03/08[facility] for CVA. She and her daughter Mary Ann Burrell reside together in [place] and she intends to return there when safe to do so. PCP: Dr. Amauri Peralta MD, [facility] PHARMACY: [facility] INSURANCE: Medicare, unsure of secondary she she indicates she does have one. She had [employer] but believes it was discontinued and she was auto-enrolled in Wellness. She states her daughter Mary Ann manages all of those affairs because she/patient is unable to cognitively do so. DME: Patient states she has Rollator walker that she uses at all times, 2 shower chairs, CPAP from [facility], stool riser, and she bought a Tempur Pedic bed that is adjustable. BARRIERS TO DISCHARGE: No outstanding issues noted, patient's daughter will be with her at home to assist. She appears to have adequate insurance coverage and positve menu of home DME. CONTACTS: Chu Silvestre, Son [address] [place] [address] Mary Ann Burrell, Daughter [address] (With patient) [place] [address] Work: at [employer] Patient understands the purpose and process of the weekly patient care conference and that her first review will be Sunday, March 10, 2020.
--- NOTE | 2020-03-09 15:32 | NUR ---
"RD ASSESSMENT PMHx: CAD; hypercholesterolemia; HTN; stroke; renal failure; GERD; chronic constipation; gastroparesis; DM; PT INTERACTION: Pt was awake and pleasant during nutrition assessment. Pt states current appetite is good. Note avg PO intake 100% x1d, per chart review. Pt states following a regular diet at home, and has no issues with chewing/swallowing food. Pt states some recent issues with nausea, vomiting, and constipation, and that her last BM was 1/2. Note pt currently on bowel regimen of colace BID, senna BID, and miralax BID, per chart review. Pt states no recent wt changes. Note unable to determine recent wt hx, per chart review. Pt states current DM management is pretty good. Note unable to determine recent HbA1c, per chart review. Est. kcal needs: [id number] kcal | 15-20 kcal/kg Est. Pro needs: 73-91 g Pro | 0.8-1.0 g Pro/kg PES STATEMENT: Given current appetite and PO intake, no nutrition diagnosis at this time (NO-1.1). INTERVENTION: Continue with current diet order of Regular diet. Pt may benefit from switching to consistent CHO diet if blood glucose levels become elevated. Offered diet education on DM management, but pt declined at this time. Will attempt to offer again prior to discharge. Will continue to follow and reassess as pt needs, intake, and status change. Nafisa BARRETT, MS RD LD [phone] cell"
[2020-03-09 15:50] VITALS: BP 139/78
--- NOTE | 2020-03-09 17:25 | NUR ---
PT SITTING UP ON SIDE OF BED, EATING. STATES THAT SHE TOOK A NAP, AFTER LEBLANC WAS REMOVED, THEN WOKE UP A LITTLE WHILE AGO, FELT THE NEED TO URINATE URGENTLY, STATES, "I KNOW I WASN'T SUPPOSED TO DO IT, BUT, I HAD TO GO SO BAD, I WALKED IN TO THE B/R, & WENT, & ALSO WET MY PANTS." INSTR PT TO NOT BE UP BY HERSELF, STAFF WILL WASH CLOTHES FOR HER. BED ALARM ON. Addendum: 03/09/20 at 1843 by CRESENCIO BAKER RN BLADDER SCAN WAS 97 cc AFTER EPISODE
[2020-03-09] MEDS: SERTRALINE 50 MG (ZOLOFT) TABLET PO SCH (21:36)
[2020-03-09] MEDS: inSUlin NPH (NovoLIN N) 1 UNIT/0.01 ML (CHARGE PER UNIT) SQ SCH (21:36)
[2020-03-09] MEDS: ENOXAPARIN 40 MG/0.4 ML (LOVENOX) SYR SC SCH (21:37)
[2020-03-10 06:05] VITALS: BP 150/87
[2020-03-10] MEDS: inSUlin (REGULAR) HUMAN 1 UNIT/0.01 ML (CHARGE PER UNIT) SC SCH ×3 (06:37→17:24)
--- NOTE | 2020-03-10 08:46 | PM&R Progress Note ---
Subjective HPI/CC On Admission Date Seen by Provider: Mar 10, 2020 Time Seen by Provider: 09:00 Subjective/Events-last exam 03/10/20: Pt dizzy, took Meclizine which is a chronic issue DC the catheter 103 sugar so will hold off on insulin Bowels moved on March 05 so will initiate laxatives 03/09/20: Insomnia noted last night but she did run low on her blood sugar so will adjust her insulin down today Used her CPAP last night Short-term memory loss noted Has Carlene glucose monitoring system in place Review of Systems General: Fatigue, Malaise Gastrointestinal: Constipation Neurological: Weakness, Incoordination Objective Exam Vital Signs Vital Signs Date Time Temp Pulse Resp B/P (MAP) Pulse Ox O2 Delivery O2 Flow Rate FiO2 03/10/20 20:00 98 Room Air 03/10/20 17:20 36.0 72 18 148/82 (104) Capillary Refill : Less Than 3 SecondsLess Than 3 Seconds General Appearance: No Apparent Distress, WD/WN, Chronically ill HEENT: PERRL/EOMI, Normal ENT Inspection, Pharynx Normal Neck: Full Range of Motion, Normal Inspection, Non Tender, Supple, Carotid Bruit Respiratory: Chest Non Tender, Lungs Clear, Normal Breath Sounds, No Accessory Muscle Use, No Respiratory Distress Cardiovascular: Regular Rate, Rhythm, No Edema, No Gallop, No JVD, No Murmur, Normal Peripheral Pulses Gastrointestinal: Normal Bowel Sounds, No Organomegaly, No Pulsatile Mass, Non Tender, Soft Back: Normal Inspection, No CVA Tenderness, No Vertebral Tenderness Extremity: Normal Capillary Refill, Normal Inspection, Normal Range of Motion, Non Tender, No Calf Tenderness, No Pedal Edema Neurologic/Psychiatric: Alert, Oriented x3, Abnormal Gait, Depressed Affect, Facial Droop (right subtle finding), Motor Weakness (left 3/5 deficit old CVA 08/2018, right sided weakness 4/5 right leg 3/5 right arm) Skin: Normal Color, Warm/Dry Lymphatic: No Adenopathy Results/Procedures Lab Patient resulted labs reviewed. FIM Transfers Therapy Code Descriptions/Definitions Functional [place] Measure: 0=Not Assessed/NA 4=Minimal Assistance 1=Total Assistance 5=Supervision or Setup 2=Maximal Assistance 6=Modified [place] 3=Moderate Assistance 7=Complete IndependenceSCALE: Activities may be completed with or without assistive devices. 7-Qwjsevtgkh-miewhlc completes the activity by him/herself with no assistance from a helper. 5-Set-up or Clean-up Assistance-helper sets up or cleans up; patient completes activity. [place] assists only prior to or following the activity. 4-Supervision or Touching Assistance-helper provides verbal cues and/or touching/steadying and/or contact guard assistance as patient completes activity. Assistance may be provided throughout the activity or intermittently. 3-Partial/Moderate Assistance-helper does LESS THAN HALF the effort. [place] lifts, holds or supports trunk or limbs, but provides less than half the effort. 2-Substantial/Maximal Assistance-helper does MORE THAN HALF the effort. [place] lifts or holds trunk or limbs and provides more than half the effort. 8-Giopevaqb-lowacg does ALL the effort. Patient does none of the effort to com plete the activity. Or, the assistance of 2 or more helpers is required for the patient to complete the activity. If activity was not attempted, code reason: 7-Patient Refused. 9-Not Applicable-not attempted and the patient did not perform the activity before the current illness, exacerbation or injury. 10-Not Attempted due to Environmental Limitations-(lack of equipment, weather restraints, etc.). 88-Not Attempted due to Medical Conditions or Safety Concerns. Roll Left to Right (QC): 5 Sit to Lying (QC): 4 Sit to Stand (QC): 5 Chair/Mae-pg-Sycci Xfer(QC): 4 Car Transfer (QC): 4 Gait Training Does the Patient Walk?: Yes Distance: 250' x 2 Walk 10 feet (QC): 5 Walk 50 ft with 2 Turns(QC): 5 Walk 150 ft (QC): 5 Walking 10ft/uneven surface-QC: 4 Gait Persons Needed: 1 Gait Assistive Device: FWW Wheelchair Training Does the Pt Use a Wheelchair?: No Wheel 50 ft with 2 turns (QC): 4 Wheel 150 ft (QC): 88 Stair Training #of Steps: 1 1 Step (curb) (QC): 4 4 Steps (QC): 88 12 Steps (QC): 88 Balance Picking up an Object (QC): 4 ADL-Treatment Eating (QC): 5 (Pt able to eat IND, though requires assist with food containers at times per pt. ) Oral Hygiene (QC): 6 (completes with IND in front of sink, seated in w/c. ) Bathing Location: L Arm, R Arm, L Upper Leg, R Upper Leg, L Lower Leg (including foot), R Lower Leg (including foot), Chest, Abdomen, Buttocks, Perineal Area Shower/Bathe Self (QC): 4 (SBA for bathing/ bottom care. SUP for ) Upper Body Dressing (QC): 5 (s/u, completes while sitting upright in sc.) Lower Body Dressing (QC): 3 (min A for threading RLE due to cathether, however, pt is able to thread BLE per clinical judgement and complete sit to stand/ pant hike over hips with SBA-CGA.) On/Off Footwear (QC): 4 (SBA for socks/ slippers in chair.) Toileting Hygiene (QC): 4 (SBA bottom care in stance in shower, pt completes mariza care after attempted BM on toilet with IND.) Toilet Transfer (QC): 4 (SBA, use of walker) Assessment/Plan Assessment and Plan Assess & Plan/Chief Complaint Assessment: Right sided weakness with facial droop now improved not a tPa candidate per Stroke center [facility] MRI inconclusive for new CVA CVA w/residual left facial droop and left upper and lower extremity weakness August 2018 s/p IRF course DM poorly controlled 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 at [facility] 2014 HTN HLP CRI Insomnia GERD Gastroparesis OP Neuropathy Hypoglycemia Plan: IRF protocol Home meds Accuchecks SSI Monitor closely 03/09/20: Monitor ambulation Increase use of AD Decrease insulin due to hypoglycemia 03/10/20: Hypoglycemia continues Decreasing more insulin Very brittle DM (1) Weakness Status: Acute (2) CVA (cerebral vascular accident) (3) TIA (transient ischemic attack) Status: Acute (4) Hyperglycemia due to diabetes mellitus Status: Acute (5) Insomnia (6) Left hemiparesis (7) Gastroparesis (8) Hypertension Status: Acute (9) GERD (gastroesophageal reflux disease) (10) Renal insufficiency (11) Neuropathy (12) Hyperlipemia (13) Osteoporosis (14) CAD (coronary artery disease) (15) Diabetes mellitus (16) Constipation (17) Dizziness Status: Acute JAG KIRKLAND DO Mar 10, 2020 08:46
[2020-03-10] MEDS ORDERED: inSUlin NPH (NovoLIN N) 1 UNIT/0.01 ML (CHARGE PER UNIT) SQ SCH (09:00)
[2020-03-10] MEDS: polyethylene glycoL POWDER 17 GM (MIRALAX) PACK PO SCH ×2 (09:00→21:00)
[2020-03-10] MEDS: MAGNESIUM OXIDE (MAG-OX)400 MG TAB PO SCH (09:19)
[2020-03-10] MEDS: ATENOLOL 25 MG (TENORMIN) TAB PO SCH (09:19)
[2020-03-10] MEDS: DOCUSATE SODIUM 100 MG (COLACE) CAP PO SCH ×2 (09:19→21:00)
[2020-03-10] MEDS: CLOPIDOGREL 75 MG (PLAVIX) TABLET PO SCH (09:19)
[2020-03-10] MEDS: RANOLAZINE ER 500 MG TAB (RANEXA) PO SCH ×2 (09:19→21:03)
[2020-03-10] MEDS: SENNA W/DOCUSATE (SENOKOT S) TABLET PO SCH ×2 (09:19→21:00)
[2020-03-10] MEDS: ASPIRIN E.C. 81 MG (ECOTRIN) TAB PO SCH (09:19)
[2020-03-10] MEDS: ALLOPURINOL 300 MG (ZYLOPRIM) TAB PO SCH (09:19)
[2020-03-10] MEDS: METOCLOPRAMIDE 10 MG (REGLAN) TAB PO PRN (09:21)
--- NOTE | 2020-03-10 09:40 | Occupational Ther Daily Note ---
OT Current Status-Daily Note Subjective Pt AxO, denies pain, agrees to tx. Denies showering, desiring gym time. Pt states slept better. Pt states slight dizziness at times when move head L/ R, BPPV testing negative. Pt expresses BLE/ UE strength loss since 2nd CVA, though has assist at home within daughters home through the day (male caregiver who a ssists with IADLs/ when up and ambulating). Mental Status/Objective Patient Orientation: Person, Place, Situation, Normal For Age ADL-Treatment Therapy Code Descriptions/Definitions Functional [place] Measure: 0=Not Assessed/NA 4=Minimal Assistance 1=Total Assistance 5=Supervision or Setup 2=Maximal Assistance 6=Modified [place] 3=Moderate Assistance 7=Complete IndependenceSCALE: Activities may be completed with or without assistive devices. 9-Kpuogiimai-wxjteue completes the activity by him/herself with no assistance from a helper. 5-Set-up or Clean-up Assistance-helper sets up or cleans up; patient completes activity. [place] assists only prior to or following the activity. 4-Supervision or Touching Assistance-helper provides verbal cues and/or touching/steadying and/or contact guard assistance as patient completes activity. Assistance may be provided throughout the activity or intermittently. 3-Partial/Moderate Assistance-helper does LESS THAN HALF the effort. [place] lifts, holds or supports trunk or limbs, but provides less than half the effort. 2-Substantial/Maximal Assistance-helper does MORE THAN HALF the effort. [place] lifts or holds trunk or limbs and provides more than half the effort. 6-Ivjzbhvde-rcksux does ALL the effort. Patient does none of the effort to complete the activity. Or, the assistance of 2 or more helpers is required for the patient to complete the activity. If activity was not attempted, code reason: 7-Patient Refused. 9-Not Applicable-not attempted and the patient did not perform the activity before the current illness, exacerbation or injury. 10-Not Attempted due to Environmental Limitations-(lack of equipment, weather restraints, etc.). 88-Not Attempted due to Medical Conditions or Safety Concerns. Eating (QC): 6 Oral Hygiene (QC): 4 (in stance, completes with SBA. All tasks with IND.) Shower/Bathe Self (QC): 7 Upper Body Dressing (QC): 5 (s/u) Lower Body Dressing (QC): 4 (SBA for pant hike.) On/Off Footwear: 6 (IND) Toileting Hygiene (QC): 7 (denies need.) Other Treatment Pt in recliner upon entry, agrees to gym time. Sit to stand with SBA and ambulation with SBA-CGA. Pt completes oral care with SBA. Ambulates half way to gym, rests, then ambulates rest of way. Pt does not c/o difficulty of L foot this date (slippers not donned). Pt completes 15 minutes min resistance arm bike, 2 rest breaks. Pt stands to complete cognitive/ visual scanning tasks, slight confusion for word orientation during task. Sit to stands with SBA and stands with BUE supported on table while up. Pt educated on [place] benefits of this positional WB. Pt returns to room (one rest break from gym to room). pt completes EOB exercises including core/ hand-eye coordination/ reaction with balloon batting and core strengthening/ balance task. Fair + balance. States regurgitation upon exertion of core exercises. Pt desires bed end of session. All needs met, call light in reach. Education OT Patient Education: Correct positioning, Exercise program, Home exercise program, Modified ADL techniques, Progress toward Goal/Update tx plan, Purpose of tx/functional activities, Safety issues, Transfer techniques Teaching Recipient: Patient Teaching Methods: Demonstration, Discussion Response to Teaching: Verbalize Understanding, Return Demonstration, Reinforcement Needed OT Short Term Goals Short Term Goals Time Frame: Mar 15, 2020 Eatin Oral hygiene: 4 Toileting hygiene: 4 Shower/bathe self: 3 Upper body dressin Lower body dressin Putting on/taking off footwear: 4 OT Surgical Assistant Goals Surgical Assistant Goals Time Frame: Mar 22, 2020 Eating (QC): 6 Oral Hygiene (QC): 6 Toileting Hygiene (QC): 6 Shower/Bathe Self (QC): 4 Upper Body Dressing (QC): 5 Lower Body Dressing (QC): 5 On/Off Footwear (QC): 5 Additional Goals: 1-Demonstrate ADL Tasks, 2-Verbalize Understanding, 3- ImproveStrength/Ruthie 1=Demonstrate adherence to instructed precautions during ADL tasks. 2=Patient will verbalize/demonstrate understanding of assistive devices/modifications for ADL. 3=Patient will improve strength/tolerance for activity to enable patient to perform ADL's. OT Education/Plan Problem List/Assessment Assessment: Decreased Activ Tolerance, Decreased UE Strength, Dependent Transfers, Impaired Funct Balance, Impaired I ADL's, Impaired Self-Care Skills Discharge Recommendations Plan/Recommendations: Continue POC Therapy Discharge Recommendati: Intermittent Supervision, Home & Family Treatment Plan/Plan of Care Treatment,Training & Education: Yes Patient would benefit from OT for education, treatment and training to promote independence in ADL's, mobility, safety and/or upper extremity function for ADL's. Plan of Care: ADL Retraining, Functional Mobility, UE Funct Exercise/Act Treatment Duration: Mar 22, 2020 Frequency: At least 5 of 7 days/Wk (IRF) Estimated Hrs Per Day: 1.5 hours per day Agreement: Yes Rehab Potential: Good Time/GCodes Start Time: 08:00 Stop Time: 09:30 Total Time Billed (hr/min): 90 Billed Treatment Time 1, ADL (15), EX 5 (75)= 90 FELIX CADENA OTR Mar 10, 2020 09:40
--- NOTE | 2020-03-10 12:26 | Physical Therapy Daily Note ---
PT Daily Note-Current Subjective Pt laying in bed upon arrival. Pt agrees to PT. Worried about needing to use BR as she has received BM meds. Pain Location: No Pain Reported Mental Status Patient Orientation: Person, Place, Situation Transfers SCALE: Activities may be completed with or without assistive devices. 8-Ziktyphrwq-lemtdhv completes the activity by him/herself with no assistance from a helper. 5-Set-up or Clean-up Assistance-helper sets up or cleans up; patient completes activity. [place] assists only prior to or following the activity. 4-Supervision or Touching Assistance-helper provides verbal cues and/or touching/steadying and/or contact guard assistance as patient completes activity. Assistance may be provided throughout the activity or intermittently. 3-Partial/Moderate Assistance-helper does LESS THAN HALF the effort. [place] lifts, holds or supports trunk or limbs, but provides less than half the effort. 2-Substantial/Maximal Assistance-helper does MORE THAN HALF the effort. [place] lifts or holds trunk or limbs and provides more than half the effort. 0-Lxbpdtufy-bywcjb does ALL the effort. Patient does none of the effort to complete the activity. Or, the assistance of 2 or more helpers is required for the patient to complete the activity. If activity was not attempted, code reason: 7-Patient Refused. 9-Not Applicable-not attempted and the patient did not perform the activity before the current illness, exacerbation or injury. 10-Not Attempted due to Environmental Limitations-(lack of equipment, weather restraints, etc.). 88-Not Attempted due to Medical Conditions or Safety Concerns. Roll Left & Right (QC): 6 Lying to Sitting/Side of Bed(Q: 6 Sit to Stand (QC): 6 Toilet Transfer (QC): 6 Weight Bearing Full Weight Bearing Full Weight Bearing Gait Training Does the Patient Walk?: Yes Distance: 15' x2 Walk 10 feet (QC): 5 Gait Persons Needed: 1 Gait Assistive Device: FWW Wheelchair Training Does the Pt Use a Wheelchair?: No Exercises Seated Therapy Exercises: Ankle pumps, Long arc quads, Hip flexion, Kicking activity, Glut set Seated Reps: 15 Treatments TF from bed to standing and uses BR. Pt asks to return to recliner to rest. Pt completes Seated Ex before demonstrating very sleepy. Pt has self monitoring device for Blood Sugar and when taken it is 60. SEAWEED HARVESTER is able to provide OJ and jonny crackers with peanut butter to try to bring Sugar back up. Nurse is notified and will continue to monitor. All needs met, call light in hand & lunch arriving. Assessment Current Status: Fair Progress Blood Sugar drops limiting tx this morning but will continue in afternoon. PT Short Term Goals Short Term Goals Time Frame: Mar 15, 2020 Roll Left & Right: 6 Sit to lyin Lying to sitting on side of be: 4 Sit to stand: 4 Chair/ela-ls-jwwbh transfer: 4 Walk 10 feet: 4 Walk 50 feet with two turns: 4 Walk 150 feet: 4 PT Process Helper Goals Senior Care Goals PT Senior Care Goals Time Frame: Mar 29, 2020 Roll Left & Right (QC): 6 Sit to Lying (QC): 6 Lying-Sitting on Side/Bed(QC): 6 Sit to Stand (QC): 6 Chair/Huz-vg-Sencg Xfer(QC): 6 Toilet Transfer (QC): 6 Car Transfer (QC): 6 Does the Patient Walk: Yes Walk 10 feet (QC): 6 Walk 50ft with 2 Turns (QC): 6 Walk 150 ft (QC): 6 Walking 10ft on Uneven Surface: 6 1 Step (curb) (QC): 4 4 Steps (QC): 4 12 Steps (QC): 88 Picking up an Object (QC): 4 Wheel 50 feet with 2 turns (QC: 9 Wheel 150 feet: 9 PT Plan Problem List Problem List: Activity Tolerance Treatment/Plan Treatment Plan: Continue Plan of Care Treatment Plan: Bed Mobility, Education, Functional Activity Ruthie, Functional Strength, Group Therapy, Gait, Safety, Therapeutic Exercise, Transfers Treatment Duration: Mar 29, 2020 Frequency: At least 5 of 7 days/Wk (IRF) Estimated Hrs Per Day: 1.5 hours per day Patient and/or Family Agrees t: Yes Safety Risks/Education Patient Education: Issued Written HEP, Correct Positioning, Safety Issues Teaching Recipient: Patient Teaching Methods: Discussion Response to Teaching: Verbalize Understanding Time/GCodes Time In: 1100 Time Out: 1200 Total Billed Treatment Time: 60 Total Billed Treatment 1, FA x2 (35m) & EX x2 (25m) HIMANSHU RODRIGUEZ PTA Mar 10, 2020 12:26
--- NOTE | 2020-03-10 14:12 | Physical Therapy Daily Note ---
PT Daily Note-Current Subjective Pt sitting in recliner asleep upon arrival. Pt agrees to PT. Pt states Blood Sugar is better at 120. Pain Location: No Pain Reported Mental Status Patient Orientation: Person, Place, Situation Transfers SCALE: Activities may be completed with or without assistive devices. 0-Qszbnpclxo-wtieqpl completes the activity by him/herself with no assistance from a helper. 5-Set-up or Clean-up Assistance-helper sets up or cleans up; patient completes activity. [place] assists only prior to or following the activity. 4-Supervision or Touching Assistance-helper provides verbal cues and/or touching/steadying and/or contact guard assistance as patient completes activity. Assistance may be provided throughout the activity or intermittently. 3-Partial/Moderate Assistance-helper does LESS THAN HALF the effort. [place] lifts, holds or supports trunk or limbs, but provides less than half the effort. 2-Substantial/Maximal Assistance-helper does MORE THAN HALF the effort. [place] lifts or holds trunk or limbs and provides more than half the effort. 1-Djdoflbdp-lhwccx does ALL the effort. Patient does none of the effort to complete the activity. Or, the assistance of 2 or more helpers is required for the patient to complete the activity. If activity was not attempted, code reason: 7-Patient Refused. 9-Not Applicable-not attempted and the patient did not perform the activity before the current illness, exacerbation or injury. 10-Not Attempted due to Environmental Limitations-(lack of equipment, weather restraints, etc.). 88-Not Attempted due to Medical Conditions or Safety Concerns. Sit to Lying (QC): 6 Sit to Stand (QC): 5 Weight Bearing Full Weight Bearing Full Weight Bearing Gait Training Does the Patient Walk?: Yes Distance: 150' Walk 10 feet (QC): 5 Walk 50 ft with 2 Turns(QC): 5 Walk 150 ft (QC): 5 Gait Persons Needed: 1 Gait Assistive Device: FWW Pt reports fatigue and asks to return to room after walk. Wheelchair Training Does the Pt Use a Wheelchair?: No Exercises Supine Ex: Ankle pumps, Quad Set, Glut sets, Heel Slides, Straight leg raise, Hip abd/add Supine Reps: 15 Treatments TF to standing then amb in hallway before returning to room. TF to EOB then Supine and completes Supine HEP. Pt resting in bed with all needs met, call light in hand. Assessment Current Status: Good Progress Pt is moving well but reports more fatigued since this morning. Nurse is aware. PT Short Term Goals Short Term Goals Time Frame: Mar 15, 2020 Roll Left & Right: 6 Sit to lyin Lying to sitting on side of be: 4 Sit to stand: 4 Chair/tkq-va-dkpjt transfer: 4 Walk 10 feet: 4 Walk 50 feet with two turns: 4 Walk 150 feet: 4 PT Tank Systems Maintainer Goals [facility] Goals PT Tank Systems Maintainer Goals Time Frame: Mar 29, 2020 Roll Left & Right (QC): 6 Sit to Lying (QC): 6 Lying-Sitting on Side/Bed(QC): 6 Sit to Stand (QC): 6 Chair/Hnk-yk-Qjvzc Xfer(QC): 6 Toilet Transfer (QC): 6 Car Transfer (QC): 6 Does the Patient Walk: Yes Walk 10 feet (QC): 6 Walk 50ft with 2 Turns (QC): 6 Walk 150 ft (QC): 6 Walking 10ft on Uneven Surface: 6 1 Step (curb) (QC): 4 4 Steps (QC): 4 12 Steps (QC): 88 Picking up an Object (QC): 4 Wheel 50 feet with 2 turns (QC: 9 Wheel 150 feet: 9 PT Plan Problem List Problem List: Activity Tolerance Treatment/Plan Treatment Plan: Continue Plan of Care Treatment Plan: Bed Mobility, Education, Functional Activity Ruthie, Functional Strength, Group Therapy, Gait, Safety, Therapeutic Exercise, Transfers Treatment Duration: Mar 29, 2020 Frequency: At least 5 of 7 days/Wk (IRF) Estimated Hrs Per Day: 1.5 hours per day Patient and/or Family Agrees t: Yes Safety Risks/Education Patient Education: Correct Positioning, Safety Issues Teaching Recipient: Patient Teaching Methods: Discussion Response to Teaching: Verbalize Understanding Time/GCodes Time In: 1335 Time Out: 1405 Total Billed Treatment Time: 30 Total Billed Treatment 1, GT (10m) & EX (20m) HIMANSHU RODRIGUEZ GALLERY OR MUSEUM TECHNICIAN Mar 10, 2020 14:12
[2020-03-10 17:20] VITALS: BP 148/82
[2020-03-10] MEDS: SERTRALINE 50 MG (ZOLOFT) TABLET PO SCH (21:03)
[2020-03-10] MEDS: ENOXAPARIN 40 MG/0.4 ML (LOVENOX) SYR SC SCH (21:04)
[2020-03-10] MEDS: inSUlin NPH (NovoLIN N) 1 UNIT/0.01 ML (CHARGE PER UNIT) SQ SCH (21:04)
--- NOTE | 2020-03-11 05:14 | PM&R Progress Note ---
Subjective HPI/CC On Admission Date Seen by Provider: Mar 11, 2020 Time Seen by Provider: 08:30 Subjective/Events-last exam 03/11/20: No major issues Decreasing insulin due to hypoglycemia Dizziness improved 03/10/20: Pt dizzy, took Meclizine which is a chronic issue DC the catheter 103 sugar so will hold off on insulin Bowels moved on March 05 so will initiate laxatives 03/09/20: Insomnia noted last night but she did run low on her blood sugar so will adjust her insulin down today Used her CPAP last night Short-term memory loss noted Has Carlene glucose monitoring system in place Review of Systems General: Fatigue, Malaise Objective Exam Vital Signs Vital Signs Date Time Temp Pulse Resp B/P (MAP) Pulse Ox O2 Delivery O2 Flow Rate FiO2 03/11/20 20:45 Room Air 03/11/20 18:00 36.8 66 18 127/84 (98) 99 Capillary Refill : Less Than 3 SecondsLess Than 3 Seconds General Appearance: No Apparent Distress, WD/WN, Chronically ill HEENT: PERRL/EOMI, Normal ENT Inspection, Pharynx Normal Neck: Full Range of Motion, Normal Inspection, Non Tender, Supple, Carotid Bruit Respiratory: Chest Non Tender, Lungs Clear, Normal Breath Sounds, No Accessory Muscle Use, No Respiratory Distress Cardiovascular: Regular Rate, Rhythm, No Edema, No Gallop, No JVD, No Murmur, Normal Peripheral Pulses Gastrointestinal: Normal Bowel Sounds, No Organomegaly, No Pulsatile Mass, Non Tender, Soft Back: Normal Inspection, No CVA Tenderness, No Vertebral Tenderness Extremity: Normal Capillary Refill, Normal Inspection, Normal Range of Motion, Non Tender, No Calf Tenderness, No Pedal Edema Neurologic/Psychiatric: Alert, Oriented x3, Abnormal Gait, Depressed Affect, Facial Droop (right subtle finding), Motor Weakness (left 3/5 deficit old CVA 08/2018, right sided weakness 4/5 right leg 3/5 right arm) Skin: Normal Color, Warm/Dry Lymphatic: No Adenopathy Results/Procedures Lab Patient resulted labs reviewed. FIM Transfers Therapy Code Descriptions/Definitions Functional [place] Measure: 0=Not Assessed/NA 4=Minimal Assistance 1=Total Assistance 5=Supervision or Setup 2=Maximal Assistance 6=Modified [place] 3=Moderate Assistance 7=Complete IndependenceSCALE: Activities may be completed with or without assistive devices. 7-Nvmglezmei-jbsbabq completes the activity by him/herself with no assistance from a helper. 5-Set-up or Clean-up Assistance-helper sets up or cleans up; patient completes activity. [place] assists only prior to or following the activity. 4-Supervision or Touching Assistance-helper provides verbal cues and/or touching/steadying and/or contact guard assistance as patient completes activity. Assistance may be provided throughout the activity or intermittently. 3-Partial/Moderate Assistance-helper does LESS THAN HALF the effort. [place] lifts, holds or supports trunk or limbs, but provides less than half the effort. 2-Substantial/Maximal Assistance-helper does MORE THAN HALF the effort. [place] lifts or holds trunk or limbs and provides more than half the effort. 4-Gzdataqpt-ffronf does ALL the effort. Patient does none of the effort to complete the activity. Or, the assistance of 2 or more helpers is required for the patient to complete the activity. If activity was not attempted, code reason: 7-Patient Refused. 9-Not Applicable-not attempted and the patient did not perform the activity before the current illness, exacerbation or injury. 10-Not Attempted due to Environmental Limitations-(lack of equipment, weather restraints, etc.). 88-Not Attempted due to Medical Conditions or Safety Concerns. Roll Left to Right (QC): 6 Sit to Lying (QC): 6 Sit to Stand (QC): 5 Chair/Fsk-ip-Eiluc Xfer(QC): 4 Car Transfer (QC): 4 Gait Training Does the Patient Walk?: Yes Distance: 150' Walk 10 feet (QC): 5 Walk 50 ft with 2 Turns(QC): 5 Walk 150 ft (QC): 5 Walking 10ft/uneven surface-QC: 4 Gait Persons Needed: 1 Gait Assistive Device: FWW Wheelchair Training Does the Pt Use a Wheelchair?: No Wheel 50 ft with 2 turns (QC): 4 Wheel 150 ft (QC): 88 Stair Training #of Steps: 1 1 Step (curb) (QC): 4 4 Steps (QC): 88 12 Steps (QC): 88 Balance Picking up an Object (QC): 4 ADL-Treatment Eating (QC): 6 Oral Hygiene (QC): 4 (in stance, completes with SBA. All tasks with IND.) Bathing Location: L Arm, R Arm, L Upper Leg, R Upper Leg, L Lower Leg (including foot), R Lower Leg (including foot), Chest, Abdomen, Buttocks, Perineal Area Shower/Bathe Self (QC): 7 Upper Body Dressing (QC): 5 (s/u) Lower Body Dressing (QC): 4 (SBA for pant hike.) On/Off Footwear (QC): 6 (IND) Toileting Hygiene (QC): 7 (denies need.) Toilet Transfer (QC): 4 (SBA, use of walker) Assessment/Plan Assessment and Plan Assess & Plan/Chief Complaint Assessment: Right sided weakness with facial droop now improved not a tPa candidate per Stroke center [facility] MRI inconclusive for new CVA CVA w/residual left facial droop and left upper and lower extremity weakness August 2018 s/p IRF course DM poorly controlled 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 at [facility] 2014 HTN HLP CRI Insomnia GERD Gastroparesis OP Neuropathy Hypoglycemia Plan: IRF protocol Home meds Accuchecks SSI Monitor closely 03/09/20: Monitor ambulation Increase use of AD Decrease insulin due to hypoglycemia 03/10/20: Hypoglycemia continues Decreasing more insulin Very brittle DM 03/11/20: Monitor dizziness Decrease insulin (1) Weakness Status: Acute (2) CVA (cerebral vascular accident) (3) TIA (transient ischemic attack) Status: Acute (4) Hyperglycemia due to diabetes mellitus Status: Acute (5) Insomnia (6) Left hemiparesis (7) Gastroparesis (8) Hypertension Status: Acute (9) GERD (gastroesophageal reflux disease) (10) Renal insufficiency (11) Neuropathy (12) Hyperlipemia (13) Osteoporosis (14) CAD (coronary artery disease) (15) Diabetes mellitus (16) Constipation (17) Dizziness Status: Acute JAG KIRKLAND DO Mar 11, 2020 05:14
--- NOTE | 2020-03-11 05:16 | Individualized Plan of Care ---
Individualized Plan of Care Rehab Nursing IPOC Order Admission Date Mar 08, 2020 at 11:14 Current Orders Orders Admission Order(Inpt,Obs,Sdc) (03/08/20 10:33) Vital Signs: Per Unit Policy ( 08,16,00 (03/08/20 10:33) Thien Marquez (03/08/20 10:33) Sequential Compression Device Q4H (03/08/20 10:33) Special Education Teacher-Inpt Rehab Con (03/08/20 10:33) Rehab Nursing Orders-Ipoc (03/08/20 10:33) Physical Therapy Rehab Orders (03/08/20 10:33) Occupational Therapy Rehab Ord (03/08/20 10:33) Speech Therapy Rehab Orders (03/08/20 10:33) Cbc With Automated Diff (03/09/20 06:00) Comprehensive Metabolic Panel (03/09/20 06:00) General/Regular (03/08/20 Lunch) Intake & Output ,, (03/08/20 10:33) Precautions (Aru) (03/08/20 10:33) Rehab-Intensity Of Therapy (03/08/20 10:33) Initiate Admission Nursing Pro .admission (03/08/20 10:33) Alprazolam Tablet (Xanax Tablet) (03/08/20 10:45) Calcium Carbonate Chew Tablet (Antacid C (03/08/20 10:45) Diphenhydramine Tablet (Benadryl Tablet) (03/08/20 10:45) Docusate Sodium Capsule (Colace Capsule) (03/08/20 21:00) Docusate Sodium Capsule (Colace Capsule) (03/08/20 10:45) Bisacodyl Suppository (Dulcolax Supposit (03/08/20 10:45) Lactulose Oral Solution (Enulose Oral So (03/08/20 10:45) Na Phos/Na Biphos Enema (Fleet Enema Alok (03/08/20 10:45) Guaifenesin/Codeine Syrup (Robitussin Ac (03/08/20 10:45) Loperamide Tablet (Imodium Tablet) (03/08/20 10:45) Enoxaparin Injection (Lovenox Injection) (03/08/20 21:00) Melatonin Tablet (Melatonin Tablet) (03/08/20 10:45) Polyethylene Glycol Powder Pkt (Miralax (03/08/20 21:00) Ondansetron Oral Dissolve Tab (Zofran (03/08/20 10:45) Senna S Tablet (Senokot S Tablet) (03/08/20 21:00) Initiate Admission Nursing Pro .admission (03/08/20 10:33) Admission Arrival Bed Request (03/08/20 12:09) Patient Visit (03/08/20 ) Speech Sound Lang Comp (03/08/20 ) Patient Visit (03/08/20 ) Functional Activities, Ea 15 (03/08/20 ) Patient Visit (03/08/20 ) Pt Eval Moderate Complexity (03/08/20 ) Functional Activities, Ea 15 (03/08/20 ) Ambulate 08,12,20 (03/08/20 17:40) Sequential Compression Device Q4H (03/08/20 17:40) Dvt/Vte Risk - Notifiy Physici Q4H (03/08/20 17:40) Allopurinol Tablet (Zyloprim Tablet) (03/09/20 09:00) Aspirin Enteric Coated Tablet (Ecotrin T (03/09/20 09:00) Atenolol Tablet (Tenormin Tablet) (03/09/20 09:00) Clopidogrel Tablet (Plavix Tablet) (03/09/20 09:00) Insulin Nph Human (Per Unit) (Novolin N (03/09/20 09:00) Insulin Nph Human (Per Unit) (Novolin N (03/08/20 21:00) Insulin (Regular) Human (Novolin R (Per (03/09/20 07:00) Losartan Tablet (Cozaar Tablet) (03/08/20 18:30) Meclizine Tablet (Antivert Tablet) (03/08/20 18:30) Metoclopramide Tablet (Reglan Tablet) (03/08/20 18:30) Nitroglycerin 0.4 Mg Btl 25's (Nitrostat (03/08/20 18:30) Oxybutynin Xl (Non-Formulary) (Ditropan- (03/08/20 18:30) (Nf) Magnesium Oxide (Magnesium) (03/09/20 09:00) (Nf) Ranolazine (Ranexa) (03/08/20 21:00) (Nf) Sertraline Hcl (03/08/20 21:00) Sertraline Tablet (Zoloft Tablet) (03/08/20 21:00) Ranolazine Er Tablet (Ranexa Er Tablet) (03/08/20 21:00) Magnesium Oxide Tablet (Mag Ox Tablet) (03/09/20 08:00) Oxybutynin Tablet (Ditropan Tablet) (03/08/20 19:00) Furosemide Tablet (Lasix Tablet) (03/12/20 09:00) Insulin (Regular) Human (Novolin R (Per (03/09/20 12:00) Insulin Nph Human (Per Unit) (Novolin N (03/09/20 21:00) Nursing Communication (Order) (03/09/20 14:01) Catheter(Urinary) Discontinue (03/09/20 14:03) Iv Heplock-Discontinue (Order) (03/09/20 14:03) Patient Visit (03/09/20 ) Gait Training, Ea 15 Min (03/09/20 ) Exercise Therap, Ea 15 Min (03/09/20 ) Functional Activities, Ea 15 (03/09/20 ) Patient Visit (03/09/20 ) Exercise Therap, Ea 15 Min (03/09/20 ) Gait Training, Ea 15 Min (03/09/20 ) Insulin Nph Human (Per Unit) (Novolin N (03/10/20 09:00) Patient Visit (03/10/20 ) Functional Activities, Ea 15 (03/10/20 ) Exercise Therap, Ea 15 Min (03/10/20 ) Gait Training, Ea 15 Min (03/10/20 ) Insulin Nph Human (Per Unit) (Novolin N (03/11/20 21:00) Insulin Nph Human (Per Unit) (Novolin N (03/11/20 09:00) Rehab Nursing Orders: Ongoing Assess. of Cognitive Status, Ongoing Assess. of Function Status, Bladder Management, Bladder Scan, Bladder Training, Bowel Management, Bowel Training, Disease Management & Educaiton, DVT Prophylaxis, Fall Prevention, Fluid/Electrolyte/Nutrition Mgmt, Infection Prevention, Medication Management & Education, Management of Risks & Complications, Management of Skin Intergrity, Nutrition Management, Pain Management, Patient/Family Support, Safety Management Intensity of Therapy to be met Patient to be seen: Min.3h per day/5 of 7d PT IPOC Problem List: Activity Tolerance Treatment Plan: Continue Plan of Care Bed Mobility, Education, Functional Activity Ruthie, Functional Strength, Group Therapy, Gait, Safety, Therapeutic Exercise, Transfers Treatment Duration: Mar 29, 2020 Frequency: At least 5 of 7 days/Wk (IRF) Estimated Hrs Per Day: 1.5 hours per day OT IPOC Problems: Decreased Activ Tolerance, Decreased UE Strength, Dependent Transfers, Impaired Funct Balance, Impaired I ADL's, Impaired Self-Care Skills OT Treatment, Training and Edu: Yes Plan of Care: ADL Retraining, Functional Mobility, UE Funct Exercise/Act Treatment Duration: Mar 22, 2020 Frequency: At least 5 of 7 days/Wk (IRF) Estimated Hrs Per Day: 1.[address] IPOC Speech Therapy Treatment Plan: Discontinue ST Treatment Duration: Mar 08, 2020 Frequency: 1 time per week Estimated Hrs Per Day: .25 hour per day Special Education Teacher/Case Mgmt Special Education Teacher/Case Managemen: Discharge Planning Dietitian/Real Estate Accountant Dietitian/Real Estate Accountant to monitor nutritional status and make changes and/or recommendations as needed and work with speech pathology on dietary upgrades as the occur. Physician IPOC Medical Issues being managed closely and that require the 24 hour availability of a physician: Recent new neuro deficit in midst of left sided weakness from CVA 08/2018 will require close monitoring for extension of deficit along with DM brittle type management Medical Issues: Bowel/Bladder Function, DVT Prophylaxis, Falls Precautions, Fluid/Electrolyte/Nutrition Balance, Infection Protection, Pain Management Brief Synthesis of Preadmission Screen, Post-Admission Evaluation, and Therapy Evaluations: PT OT will focus on regaining function with ADL independence along with ambulatory skills with use of AD Medical Prognosis: Good Anticipated Length of Stay: 10 days JAG KIRKLAND DO Mar 11, 2020 05:16
[2020-03-11 06:00] VITALS: BP 139/64
[2020-03-11] MEDS: inSUlin (REGULAR) HUMAN 1 UNIT/0.01 ML (CHARGE PER UNIT) SC SCH ×3 (06:38→17:21)
[2020-03-11] MEDS: polyethylene glycoL POWDER 17 GM (MIRALAX) PACK PO SCH ×2 (07:49→20:51)
[2020-03-11] MEDS: inSUlin NPH (NovoLIN N) 1 UNIT/0.01 ML (CHARGE PER UNIT) SQ SCH ×2 (08:33→20:54)
[2020-03-11] MEDS: SENNA W/DOCUSATE (SENOKOT S) TABLET PO SCH ×2 (08:33→20:52)
[2020-03-11] MEDS: DOCUSATE SODIUM 100 MG (COLACE) CAP PO SCH ×2 (08:33→20:51)
[2020-03-11] MEDS: RANOLAZINE ER 500 MG TAB (RANEXA) PO SCH ×2 (08:33→20:53)
[2020-03-11] MEDS: ALLOPURINOL 300 MG (ZYLOPRIM) TAB PO SCH (08:33)
[2020-03-11] MEDS: CLOPIDOGREL 75 MG (PLAVIX) TABLET PO SCH (08:33)
[2020-03-11] MEDS: ATENOLOL 25 MG (TENORMIN) TAB PO SCH (08:33)
[2020-03-11] MEDS: ASPIRIN E.C. 81 MG (ECOTRIN) TAB PO SCH (08:33)
[2020-03-11] MEDS: MAGNESIUM OXIDE (MAG-OX)400 MG TAB PO SCH (08:33)
--- NOTE | 2020-03-11 10:30 | Occupational Ther Daily Note ---
OT Current Status-Daily Note Subjective No pain reported. Appearance Pt. up in chair. Agrees to work with OT. Mental Status/Objective Patient Orientation: Person, Place, Time, Situation ADL-Treatment Therapy Code Descriptions/Definitions Functional [place] Measure: 0=Not Assessed/NA 4=Minimal Assistance 1=Total Assistance 5=Supervision or Setup 2=Maximal Assistance 6=Modified [place] 3=Moderate Assistance 7=Complete IndependenceSCALE: Activities may be completed with or without assistive devices. 0-Hhvllvyvew-xzjqtsq completes the activity by him/herself with no assistance from a helper. 5-Set-up or Clean-up Assistance-helper sets up or cleans up; patient completes activity. [place] assists only prior to or following the activity. 4-Supervision or Touching Assistance-helper provides verbal cues and/or touching/steadying and/or contact guard assistance as patient completes activity. Assistance may be provided throughout the activity or intermittently. 3-Partial/Moderate Assistance-helper does LESS THAN HALF the effort. [place] lifts, holds or supports trunk or limbs, but provides less than half the effort. 2-Substantial/Maximal Assistance-helper does MORE THAN HALF the effort. [place] lifts or holds trunk or limbs and provides more than half the effort. 7-Lchyqknkx-ghsvjj does ALL the effort. Patient does none of the effort to complete the activity. Or, the assistance of 2 or more helpers is required for the patient to complete the activity. If activity was not attempted, code reason: 7-Patient Refused. 9-Not Applicable-not attempted and the patient did not perform the activity before the current illness, exacerbation or injury. 10-Not Attempted due to Environmental Limitations-(lack of equipment, weather restraints, etc.). 88-Not Attempted due to Medical Conditions or Safety Concerns. Eating (QC): 6 Oral Hygiene (QC): 5 (Set up seated at sink.) Shower/Bathe Self (QC): 4 (SBA to wash all parts in shower.) Upper Body Dressing (QC): 5 Lower Body Dressing (QC): 4 On/Off Footwear: 5 Toileting Hygiene (QC): 6 Toilet Transfer (QC): 4 Other Treatment Pt. doing well. She completes all ADLs in bathroom area. After this, she ambulates with walker and SBA to therapy dining area. Pt. completes simple kitchen task with retrieving items from high and low cabinets from walker position. She is able to do this with no difficulty. Pt. is educated about walker basket and kitchen safety. She verbalizes understanding. Pt. then ambulates to therapy gym and completes arm bike x 5 minutes at mod resistance to increase overall strength. Pt. ambulated back to room and completed theraband exercises with red theraband, x 20 reps each, x 3 exercises in all planes for continued strength. Pt. completed full set x 2. All needs met up in chair. Education OT Patient Education: Correct positioning, Exercise program, Modified ADL techniques, Progress toward Goal/Update tx plan, Purpose of tx/functional activities, Reviewed precautions, Rehab process, Transfer techniques Teaching Recipient: Patient Teaching Methods: Demonstration, Discussion Response to Teaching: Verbalize Understanding, Return Demonstration OT Short Term Goals Short Term Goals Time Frame: Mar 15, 2020 Eatin Oral hygiene: 4 Toileting hygiene: 4 Shower/bathe self: 3 Upper body dressin Lower body dressin Putting on/taking off footwear: 4 OT Mcfp Goals Training Instructor Goals Time Frame: Mar 22, 2020 Eating (QC): 6 Oral Hygiene (QC): 6 Toileting Hygiene (QC): 6 Shower/Bathe Self (QC): 4 Upper Body Dressing (QC): 5 Lower Body Dressing (QC): 5 On/Off Footwear (QC): 5 Additional Goals: 1-Demonstrate ADL Tasks, 2-Verbalize Understanding, 3-ImproveStrength/Ruthie 1=Demonstrate adherence to instructed precautions during ADL tasks. 2=Patient will verbalize/demonstrate understanding of assistive devices/modifications for ADL. 3=Patient will improve strength/tolerance for activity to enable patient to perform ADL's. OT Education/Plan Problem List/Assessment Assessment: Decreased Activ Tolerance Discharge Recommendations Plan/Recommendations: Continue POC Therapy Discharge Recommendati: Home & Family Equpiment Recommendations-D/C: Walker Bag or Basket Treatment Plan/Plan of Care Treatment,Training & Education: Yes Patient would benefit from OT for education, treatment and training to promote independence in ADL's, mobility, safety and/or upper extremity function for ADL's. Plan of Care: ADL Retraining, Functional Mobility, UE Funct Exercise/Act Treatment Duration: Mar 22, 2020 Frequency: At least 5 of 7 days/Wk (IRF) Estimated Hrs Per Day: 1.5 hours per day Agreement: Yes Rehab Potential: Good Time/GCodes Start Time: 09:00 Stop Time: 10:30 Total Time Billed (hr/min): 90 Billed Treatment Time 1, ADL x 60minutes, Ex x 30minutes MIGUEL AVALOS OT Mar 11, 2020 10:30
--- NOTE | 2020-03-11 11:38 | NUR ---
CM/SS PATIENT CARE CONFERENCE Discussed Summary with patient and left for her to review on her own. Patient reported no questions and is in agreement with her target discharge date of March 17. HHC: Patient requests [facility] if home care services are recommended for her. DME: No new assistive devices anticipated. She will return to her home with her daughter as before.
--- NOTE | 2020-03-11 11:55 | Physical Therapy Daily Note ---
PT Daily Note-Current Subjective Pt. agrees to Rx. States she feels she is fortunate not to have any further involvement/ weakness than she does. Pt.explains her living arrangement with her children and feels well cared for Pain Location: No Pain Reported Mental Status Patient Orientation: Person, Place, Time, Situation, Normal For Age Attachments: Other-See Comments (mask) Transfers SCALE: Activities may be completed with or without assistive devices. 1-Ivxgmtcnto-glfcduo completes the activity by him/herself with no assistance from a helper. 5-Set-up or Clean-up Assistance-helper sets up or cleans up; patient completes activity. [place] assists only prior to or following the activity. 4-Supervision or Touching Assistance-helper provides verbal cues and/or touching/steadying and/or contact guard assistance as patient completes activit y. Assistance may be provided throughout the activity or intermittently. 3-Partial/Moderate Assistance-helper does LESS THAN HALF the effort. [place] lifts, holds or supports trunk or limbs, but provides less than half the effort. 2-Substantial/Maximal Assistance-helper does MORE THAN HALF the effort. [place] lifts or holds trunk or limbs and provides more than half the effort. 8-Gdhiwfyyv-vehkkt does ALL the effort. Patient does none of the effort to complete the activity. Or, the assistance of 2 or more helpers is required for the patient to complete the activity. If activity was not attempted, code reason: 7-Patient Refused. 9-Not Applicable-not attempted and the patient did not perform the activity before the current illness, exacerbation or injury. 10-Not Attempted due to Environmental Limitations-(lack of equipment, weather restraints, etc.). 88-Not Attempted due to Medical Conditions or Safety Concerns. Roll Left & Right (QC): 6 Sit to Lying (QC): 6 Lying to Sitting/Side of Bed(Q: 6 Sit to Stand (QC): 6 Chair/Igh-zr-Jyrfc Xfer(QC): 6 Toilet Transfer (QC): 6 Pt. assumed quadruped from sup to side to prone, then crawled for and back carefully but stated she did not feel comfortable to do this and has not been able to come up from floor at home after falling by crawling to a chair to pull up etc Weight Bearing Full Weight Bearing Full Weight Bearing Gait Training Does the Patient Walk?: Yes Walk 10 feet (QC): 5 Walk 50 ft with 2 Turns(QC): 5 Walk 150 ft (QC): 5 Gait Persons Needed: 1 Gait Assistive Device: FWW Exercises Supine Ex: Bridging, Ankle pumps, Quad Set, Rolling, Lower trunk rotation, Heel Slides, Scooting, Straight leg raise, Hip abd/add Supine Reps: 15 Seated Therapy Exercises: Ankle pumps, Sit to stand, Long arc quads, Hip flexion Seated Reps: 20 NuStep Minutes: 10 NuStep Workload: 4 Treatments leg presses on Nustep x 12 Assessment Current Status: Good Progress PT Short Term Goals Short Term Goals Time Frame: Mar 15, 2020 Roll Left & Right: 6 Sit to lyin Lying to sitting on side of be: 4 Sit to stand: 4 Chair/ekc-gm-gqplq transfer: 4 Walk 10 feet: 4 Walk 50 feet with two turns: 4 Walk 150 feet: 4 PT Mcfp Goals Devulcanizer Head Goals PT Devulcanizer Head Goals Time Frame: Mar 29, 2020 Roll Left & Right (QC): 6 Sit to Lying (QC): 6 Lying-Sitting on Side/Bed(QC): 6 Sit to Stand (QC): 6 Chair/Dhg-es-Imhfv Xfer(QC): 6 Toilet Transfer (QC): 6 Car Transfer (QC): 6 Does the Patient Walk: Yes Walk 10 feet (QC): 6 Walk 50ft with 2 Turns (QC): 6 Walk 150 ft (QC): 6 Walking 10ft on Uneven Surface: 6 1 Step (curb) (QC): 4 4 Steps (QC): 4 12 Steps (QC): 88 Picking up an Object (QC): 4 Wheel 50 feet with 2 turns (QC: 9 Wheel 150 feet: 9 PT Plan Treatment/Plan Treatment Plan: Continue Plan of Care Treatment Plan: Bed Mobility, Education, Functional Activity Ruthie, Functional Strength, Group Therapy, Gait, Safety, Therapeutic Exercise, Transfers Treatment Duration: Mar 29, 2020 Frequency: At least 5 of 7 days/Wk (IRF) Estimated Hrs Per Day: 1.5 hours per day Patient and/or Family Agrees t: Yes Safety Risks/Education Patient Education: Gait Training, Transfer Techniques, Correct Positioning, Disease Process, Safety Issues Teaching Recipient: Patient Teaching Methods: Demonstration, Discussion Response to Teaching: Verbalize Understanding, Return Demonstration, Reinforcement Needed Time/GCodes Time In: 1100 Time Out: 1200 Total Billed Treatment Time: 60 Total Billed Treatment 1,EX35m,GT10m,FA15m [employer] SUPERINTENDENT Mar 11, 2020 11:55
--- NOTE | 2020-03-11 14:18 | Physical Therapy Daily Note ---
PT Daily Note-Current Subjective Pt. agrees to gait and exercise. Explains more about her medical history and her outlook on her situation. Pain Location: No Pain Reported Mental Status Patient Orientation: Normal For Age Attachments: Other-See Comments (mask) Transfers SCALE: Activities may be completed with or without assistive devices. 5-Tcnbsgkrpp-mkrbtyr completes the activity by him/herself with no assistance from a helper. 5-Set-up or Clean-up Assistance-helper sets up or cleans up; patient completes activity. [place] assists only prior to or following the activity. 4-Supervision or Touching Assistance-helper provides verbal cues and/or touching/steadying and/or contact guard assistance as patient completes activity. Assistance may be provided throughout the activity or intermittently. 3-Partial/Moderate Assistance-helper does LESS THAN HALF the effort. [place] lifts, holds or supports trunk or limbs, but provides less than half the effort. 2-Substantial/Maximal Assistance-helper does MORE THAN HALF the effort. [place] lifts or holds trunk or limbs and provides more than half the effort. 5-Wjamhvygo-vqmxsh does ALL the effort. Patient does none of the effort to complete the activity. Or, the assistance of 2 or more helpers is required for the patient to complete the activity. If activity was not attempted, code reason: 7-Patient Refused. 9-Not Applicable-not attempted and the patient did not perform the activity before the current illness, exacerbation or injury. 10-Not Attempted due to Environmental Limitations-(lack of equipment, weather restraints, etc.). 88-Not Attempted due to Medical Conditions or Safety Concerns. TRFs in out bed ad chair indep Weight Bearing Full Weight Bearing Full Weight Bearing Gait Training Does the Patient Walk?: Yes Gait Assistive Device: FWW states her arms fatigue as she walks at times. ambulated 200 ft x 2, 50 ft x 1 SBA, slow, no LOB , careful at turns etc Exercises Seated Therapy Exercises: Ankle pumps, Sit to stand, Long arc quads, Hip flexion, Hip abd/add Seated Reps: 20 Assessment Current Status: Good Progress PT Short Term Goals Short Term Goals Time Frame: Mar 15, 2020 Roll Left & Right: 6 Sit to lyin Lying to sitting on side of be: 4 Sit to stand: 4 Chair/str-wk-gldhv transfer: 4 Walk 10 feet: 4 Walk 50 feet with two turns: 4 Walk 150 feet: 4 PT Walking Dragline Operator Goals Intermediate Goals PT Walking Dragline Operator Goals Time Frame: Mar 29, 2020 Roll Left & Right (QC): 6 Sit to Lying (QC): 6 Lying-Sitting on Side/Bed(QC): 6 Sit to Stand (QC): 6 Chair/Ohh-tm-Jerpk Xfer(QC): 6 Toilet Transfer (QC): 6 Car Transfer (QC): 6 Does the Patient Walk: Yes Walk 10 feet (QC): 6 Walk 50ft with 2 Turns (QC): 6 Walk 150 ft (QC): 6 Walking 10ft on Uneven Surface: 6 1 Step (curb) (QC): 4 4 Steps (QC): 4 12 Steps (QC): 88 Picking up an Object (QC): 4 Wheel 50 feet with 2 turns (QC: 9 Wheel 150 feet: 9 PT Plan Treatment/Plan Treatment Plan: Continue Plan of Care Treatment Plan: Bed Mobility, Education, Functional Activity Ruthie, Functional Strength, Group Therapy, Gait, Safety, Therapeutic Exercise, Transfers Treatment Duration: Mar 29, 2020 Frequency: At least 5 of 7 days/Wk (IRF) Estimated Hrs Per Day: 1.5 hours per day Patient and/or Family Agrees t: Yes Safety Risks/Education Patient Education: Gait Training Time/GCodes Time In: 1330 Time Out: 1400 Total Billed Treatment Time: 30 Total Billed Treatment 1,EX10m,GT20m [facility] [employer] HEATER Mar 11, 2020 14:18
[2020-03-11 18:00] VITALS: BP 127/84
[2020-03-11] MEDS: SERTRALINE 50 MG (ZOLOFT) TABLET PO SCH (20:54)
[2020-03-11] MEDS: ENOXAPARIN 40 MG/0.4 ML (LOVENOX) SYR SC SCH (20:54)
[2020-03-12 06:14] VITALS: BP 159/91
[2020-03-12] MEDS: inSUlin (REGULAR) HUMAN 1 UNIT/0.01 ML (CHARGE PER UNIT) SC SCH ×3 (06:35→16:19)
[2020-03-12] MEDS: polyethylene glycoL POWDER 17 GM (MIRALAX) PACK PO SCH ×2 (08:17→19:37)
[2020-03-12] MEDS: ALLOPURINOL 300 MG (ZYLOPRIM) TAB PO SCH (08:22)
[2020-03-12] MEDS: ASPIRIN E.C. 81 MG (ECOTRIN) TAB PO SCH (08:22)
[2020-03-12] MEDS: FUROSEMIDE 20 MG (LASIX) TAB PO SCH (08:22)
[2020-03-12] MEDS: MAGNESIUM OXIDE (MAG-OX)400 MG TAB PO SCH (08:22)
[2020-03-12] MEDS: CLOPIDOGREL 75 MG (PLAVIX) TABLET PO SCH (08:22)
[2020-03-12] MEDS: ATENOLOL 25 MG (TENORMIN) TAB PO SCH (08:22)
[2020-03-12] MEDS: RANOLAZINE ER 500 MG TAB (RANEXA) PO SCH ×2 (08:22→20:49)
[2020-03-12] MEDS: DOCUSATE SODIUM 100 MG (COLACE) CAP PO SCH ×2 (08:22→20:51)
[2020-03-12] MEDS: inSUlin NPH (NovoLIN N) 1 UNIT/0.01 ML (CHARGE PER UNIT) SQ SCH ×2 (08:22→20:50)
[2020-03-12] MEDS: SENNA W/DOCUSATE (SENOKOT S) TABLET PO SCH ×2 (08:22→20:50)
--- NOTE | 2020-03-12 09:10 | Occupational Ther Daily Note ---
OT Current Status-Daily Note Subjective [id number]: Pt AxO up in bed this am. Food eaten with IND. Pt denies pain. Denies showering as completed yesterday. [id number]: Pt in chair, reclined. Pt just woke up from nap, agrees to tx. Mental Status/Objective Patient Orientation: Person, Place, Situation, Normal For Age ADL-Treatment Therapy Code Descriptions/Definitions Functional [place] Measure: 0=Not Assessed/NA 4=Minimal Assistance 1=Total Assistance 5=Supervision or Setup 2=Maximal Assistance 6=Modified [place] 3=Moderate Assistance 7=Complete IndependenceSCALE: Activities may be completed with or without assistive devices. 1-Payskcuiyc-zxcvrkq completes the activity by him/herself with no assistance from a helper. 5-Set-up or Clean-up Assistance-helper sets up or cleans up; patient completes activity. [place] assists only prior to or following the activity. 4-Supervision or Touching Assistance-helper provides verbal cues and/or touching/steadying and/or contact guard assistance as patient completes activity. Assistance may be provided throughout the activity or intermittently. 3-Partial/Moderate Assistance-helper does LESS THAN HALF the effort. [place] lifts, holds or supports trunk or limbs, but provides less than half the effort. 2-Substantial/Maximal Assistance-helper does MORE THAN HALF the effort. [place] lifts or holds trunk or limbs and provides more than half the effort. 2-Xfcvkeiqs-otquom does ALL the effort. Patient does none of the effort to complete the activity. Or, the assistance of 2 or more helpers is required for the patient to complete the activity. If activity was not attempted, code reason: 7-Patient Refused. 9-Not Applicable-not attempted and the patient did not perform the activity before the current illness, exacerbation or injury. 10-Not Attempted due to Environmental Limitations-(lack of equipment, weather restraints, etc.). 88-Not Attempted due to Medical Conditions or Safety Concerns. Eating (QC): 6 Oral Hygiene (QC): 4 (SUP by sink. Completes oral care/ hair brushing for 5 min in stance. ) Shower/Bathe Self (QC): 7 Upper Body Dressing (QC): 6 Lower Body Dressing (QC): 4 (SBA while in stance.) On/Off Footwear: 6 (IND EOB) Toileting Hygiene (QC): 4 (SUP) Toilet Transfer (QC): 4 (SBA) Other Treatment Pt bed mob with SBA. EOB dressing tasks as pt gathers from closet/ bag. Pt completes oral/ hair care in stance in front of sink for 4-5 minutes. Pt and OT discuss d/c, pt states her daughter mentioned SNF. Pt states she does not desire to go to SNF, though pt also states she is unable to complete much safely due to the amount of falls at home. Pt states she just "gives out." Pt states at home she does not brush teeth nor complete meal microwaving due to fall risk/ back "giving out when I stand." Pt is educated on ability to stand/ complete oral care safely this am, then pt ambulates to kitchen area, completing microwave task (taking item from fridge, placing in microwave, sitting in near-by chair for 30 seconds, and taking out/ placing back into fridge and ambulating to gym with SBA and fair endurance). Pt states she has kitchen chairs nearby the microwave and may be able to manage without assist. Pt completes 5 min on/ off (intermittent rest breaks) of standing arm bike with moderate resistance to encourage fx strength/ endurance of UE/ LE and back musculature during fx tasks. Pt completes ~30-40 sec at a time, taking seated rest break to complete UE 1# activities, including wrist flex/ ext, wrist radial deviation, sup/ pronation, bicep curls, shoulder press, etc. Pt completes each of these tasks for 30 secs, rests for ~1 min, then completes standing arm bike for 30-40 sec. Repeats until 5 min of arm bike activity. Returns to room with one rest break, requests bathroom, sits in recliner post toileting with all needs met, call light in reach. Pt completes sit to stands with SBA, ambulates through burr with SBA. Pt ambulates ~50 feet prior to sit, rests 2-5 minutes; completes this 5x through burr way. Pt states "shakiness" in BUE (motioning to bicep/ tricep area) after ambulating 4th round. Pt is educated on continued bicep/ tricep activity for continued strengthening/ endurance training for prep for fx ambulation. Pt returns to room, completes toileting as outlined. Pt then completes 10 reps bicep/ tricep curls bilaterally with exercise program/ HEP given. Pt denies needs, call light in reach, pt remains in chair. Education OT Patient Education: Correct positioning, Exercise program, Home exercise program, Modified ADL techniques, Progress toward Goal/Update tx plan, Purpose of tx/functional activities, Safety issues, Transfer techniques Teaching Recipient: Patient Teaching Methods: Demonstration, Discussion Response to Teaching: Verbalize Understanding, Return Demonstration, Reinforcement Needed OT Short Term Goals Short Term Goals Time Frame: Mar 15, 2020 Eatin Oral hygiene: 4 Toileting hygiene: 4 Shower/bathe self: 3 Upper body dressin Lower body dressin Putting on/taking off footwear: 4 OT Flipping Machine Operator Goals Flipping Machine Operator Goals Time Frame: Mar 22, 2020 Eating (QC): 6 Oral Hygiene (QC): 6 Toileting Hygiene (QC): 6 Shower/Bathe Self (QC): 4 Upper Body Dressing (QC): 5 Lower Body Dressing (QC): 5 On/Off Footwear (QC): 5 Additional Goals: 1-Demonstrate ADL Tasks, 2-Verbalize Understanding, 3- ImproveStrength/Ruthie 1=Demonstrate adherence to instructed precautions during ADL tasks. 2=Patient will verbalize/demonstrate understanding of assistive d evices/modifications for ADL. 3=Patient will improve strength/tolerance for activity to enable patient to perform ADL's. OT Education/Plan Problem List/Assessment Assessment: Decreased Activ Tolerance, Decreased UE Strength, Dependent Transfers, Impaired I ADL's, Impaired Self-Care Skills Discharge Recommendations Plan/Recommendations: Continue POC Therapy Discharge Recommendati: Home & Family Treatment Plan/Plan of Care Treatment,Training & Education: Yes Patient would benefit from OT for education, treatment and training to promote independence in ADL's, mobility, safety and/or upper extremity function for ADL's. Plan of Care: ADL Retraining, Functional Mobility, UE Funct Exercise/Act Treatment Duration: Mar 22, 2020 Frequency: At least 5 of 7 days/Wk (IRF) Estimated Hrs Per Day: 1.5 hours per day Agreement: Yes Rehab Potential: Good Time/GCodes Start Time: 08:00 (1030) Stop Time: 09:00 (1100) Total Time Billed (hr/min): 90 Billed Treatment Time [id number]: 1, ADL, EX 3 (60) [id number]: 1, EX 2 (30) Total: 90 FELIX CADENA OTR Mar 12, 2020 09:10
--- NOTE | 2020-03-12 11:44 | PM&R Progress Note ---
Subjective HPI/CC On Admission Date Seen by Provider: Mar 12, 2020 Time Seen by Provider: 12:00 Subjective/Events-last exam 03/12/20: Needs pyridium Urine wiil be checked with in/out cath then after rounds she refused in/out cath so will talk to her about that Insulin decrease has helped prevent hypoglycemia 03/11/20: No major issues Decreasing insulin due to hypoglycemia Dizziness improved 03/10/20: Pt dizzy, took Meclizine which is a chronic issue DC the catheter 103 sugar so will hold off on insulin Bowels moved on March 05 so will initiate laxatives 03/09/20: Insomnia noted last night but she did run low on her blood sugar so will adjust her insulin down today Used her CPAP last night Short-term memory loss noted Has [employer] glucose monitoring system in place Review of Systems General: Fatigue, Malaise Neurological: Weakness, Incoordination Objective Exam Vital Signs Vital Signs Date Time Temp Pulse Resp B/P (MAP) Pulse Ox O2 Delivery O2 Flow Rate FiO2 03/13/20 05:47 36.4 65 16 135/86 (102) 98 Room Air Capillary Refill : Less Than 3 SecondsLess Than 3 Seconds General Appearance: No Apparent Distress, WD/WN, Chronically ill HEENT: PERRL/EOMI, Normal ENT Inspection, Pharynx Normal Neck: Full Range of Motion, Normal Inspection, Non Tender, Supple, Carotid Bruit Respiratory: Chest Non Tender, Lungs Clear, Normal Breath Sounds, No Accessory Muscle Use, No Respiratory Distress Cardiovascular: Regular Rate, Rhythm, No Edema, No Gallop, No JVD, No Murmur, Normal Peripheral Pulses Gastrointestinal: Normal Bowel Sounds, No Organomegaly, No Pulsatile Mass, Non Tender, Soft Back: Normal Inspection, No CVA Tenderness, No Vertebral Tenderness Extremity: Normal Capillary Refill, Normal Inspection, Normal Range of Motion, Non Tender, No Calf Tenderness, No Pedal Edema Neurologic/Psychiatric: Alert, Oriented x3, Abnormal Gait, Depressed Affect, Facial Droop (right subtle finding), Motor Weakness (left 3/5 deficit old CVA 08/2018, right sided weakness 4/5 right leg 3/5 right arm) Skin: Normal Color, Warm/Dry Lymphatic: No Adenopathy Results/Procedures Lab Patient resulted labs reviewed. FIM Transfers Therapy Code Descriptions/Definitions Functional [place] Measure: 0=Not Assessed/NA 4=Minimal Assistance 1=Total Assistance 5=Supervision or Setup 2=Maximal Assistance 6=Modified [place] 3=Moderate Assistance 7=Complete IndependenceSCALE: Activities may be completed with or without assistive devices. 0-Ntrcosmcqp-fexjgbq completes the activity by him/herself with no assistance from a helper. 5-Set-up or Clean-up Assistance-helper sets up or cleans up; patient completes activity. [place] assists only prior to or following the activity. 4-Supervision or Touching Assistance-helper provides verbal cues and/or touching/steadying and/or contact guard assistance as patient completes activity. Assistance may be provided throughout the activity or intermittently. 3-Partial/Moderate Assistance-helper does LESS THAN HALF the effort. [place] lifts, holds or supports trunk or limbs, but provides less than half the effort. 2-Substantial/Maximal Assistance-helper does MORE THAN HALF the effort. [place] lifts or holds trunk or limbs and provides more than half the effort. 5-Gcplqmppj-uahfdp does ALL the effort. Patient does none of the effort to complete the activity. Or, the assistance of 2 or more helpers is required for the patient to complete the activity. If activity was not attempted, code reason: 7-Patient Refused. 9-Not Applicable-not attempted and the patient did not perform the activity before the current illness, exacerbation or injury. 10-Not Attempted due to Environmental Limitations-(lack of equipment, weather restraints, etc.). 88-Not Attempted due to Medical Conditions or Safety Concerns. Roll Left to Right (QC): 6 Sit to Lying (QC): 6 Sit to Stand (QC): 6 Chair/Blr-es-Debel Xfer(QC): 6 Car Transfer (QC): 4 Gait Training Does the Patient Walk?: Yes Distance: 150' Walk 10 feet (QC): 5 Walk 50 ft with 2 Turns(QC): 5 Walk 150 ft (QC): 5 Walking 10ft/uneven surface-QC: 4 Gait Persons Needed: 1 Gait Assistive Device: FWW Wheelchair Training Does the Pt Use a Wheelchair?: No Wheel 50 ft with 2 turns (QC): 4 Wheel 150 ft (QC): 88 Stair Training #of Steps: 1 1 Step (curb) (QC): 4 4 Steps (QC): 88 12 Steps (QC): 88 Balance Picking up an Object (QC): 4 ADL-Treatment Eating (QC): 6 Oral Hygiene (QC): 4 (SUP by sink. Completes oral care/ hair brushing for 5 min in stance. ) Bathing Location: L Arm, R Arm, L Upper Leg, R Upper Leg, L Lower Leg (including foot), R Lower Leg (including foot), Chest, Abdomen, Buttocks, Perineal Area Shower/Bathe Self (QC): 7 Upper Body Dressing (QC): 6 Lower Body Dressing (QC): 4 (SBA while in stance.) On/Off Footwear (QC): 6 (IND EOB) Toileting Hygiene (QC): 4 (SUP) Toilet Transfer (QC): 4 (SBA) Assessment/Plan Assessment and Plan Assess & Plan/Chief Complaint Assessment: Right sided weakness with facial droop now improved not a tPa candidate per Stroke center [facility] MRI inconclusive for new CVA CVA w/residual left facial droop and left upper and lower extremity weakness August 2018 s/p IRF course DM poorly controlled 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 2014 HTN HLP CRI Insomnia GERD Gastroparesis OP Neuropathy Hypoglycemia Plan: IRF protocol Home meds Accuchecks SSI Monitor closely 03/09/20: Monitor ambulation Increase use of AD Decrease insulin due to hypoglycemia 03/10/20: Hypoglycemia continues Decreasing more insulin Very brittle DM 03/11/20: Monitor dizziness Decrease insulin 03/12/20: Evaluate urine Pyridium (1) Weakness Status: Acute (2) CVA (cerebral vascular accident) (3) TIA (transient ischemic attack) Status: Acute (4) Hyperglycemia due to diabetes mellitus Status: Acute (5) Insomnia (6) Left hemiparesis (7) Gastroparesis (8) Hypertension Status: Acute (9) GERD (gastroesophageal reflux disease) (10) Renal insufficiency (11) Neuropathy (12) Hyperlipemia (13) Osteoporosis (14) CAD (coronary artery disease) (15) Diabetes mellitus (16) Constipation (17) Dizziness Status: Acute JAG KIRKLAND DO Mar 12, 2020 11:44
--- NOTE | 2020-03-12 11:59 | Physical Therapy Daily Note ---
PT Daily Note-Current Subjective Pt sitting in recliner upon arrival. Pt agrees to PT. Pain Location: No Pain Reported Mental Status Patient Orientation: Person, Place, Time, Situation Transfers SCALE: Activities may be completed with or without assistive devices. 7-Ajnrfdkasy-rhkrsfa completes the activity by him/herself with no assistance from a helper. 5-Set-up or Clean-up Assistance-helper sets up or cleans up; patient completes activity. [place] assists only prior to or following the activity. 4-Supervision or Touching Assistance-helper provides verbal cues and/or touching/steadying and/or contact guard assistance as patient completes activity. Assistance may be provided throughout the activity or intermittently. 3-Partial/Moderate Assistance-helper does LESS THAN HALF the effort. [place] lifts, holds or supports trunk or limbs, but provides less than half the effort. 2-Substantial/Maximal Assistance-helper does MORE THAN HALF the effort. [place] lifts or holds trunk or limbs and provides more than half the effort. 1-Iccjbultc-ffubjp does ALL the effort. Patient does none of the effort to complete the activity. Or, the assistance of 2 or more helpers is required for the patient to complete the activity. If activity was not attempted, code reason: 7-Patient Refused. 9-Not Applicable-not attempted and the patient did not perform the activity bef ore the current illness, exacerbation or injury. 10-Not Attempted due to Environmental Limitations-(lack of equipment, weather r estraints, etc.). 88-Not Attempted due to Medical Conditions or Safety Concerns. Sit to Stand (QC): 5 Toilet Transfer (QC): 5 Weight Bearing Full Weight Bearing Full Weight Bearing Gait Training Does the Patient Walk?: Yes Distance: 150' x2 Walk 10 feet (QC): 5 Walk 50 ft with 2 Turns(QC): 5 Walk 150 ft (QC): 5 Gait Persons Needed: 1 Gait Assistive Device: FWW Wheelchair Training Does the Pt Use a Wheelchair?: No Stair Training Stair Training: Handrails/: 1 handrail #of Steps: 4 1 Step (curb) (QC): 4 4 Steps (QC): 4 Stairs: Pattern: Step to Exercises NuStep Minutes: 15 NuStep Workload: 4 Treatments TF to standing and amb. in hallway. Pt uses NuStep for 15m at WL 4 then takes short RB. Pt completes stairs using L railing ascending and R railing descending along with taking pt's shoulder w/LUE. Pt takes short RB then amb back to room. Pt uses BR before returning to recliner. All needs met, call light in hand. Assessment Current Status: Good Progress Pt is nervous about stairs but feels better after practice. Pt wants to return home/daughter's home after DC. PT Short Term Goals Short Term Goals Time Frame: Mar 15, 2020 Roll Left & Right: 6 Sit to lyin Lying to sitting on side of be: 4 Sit to stand: 4 Chair/yvu-jm-rgtpm transfer: 4 Walk 10 feet: 4 Walk 50 feet with two turns: 4 Walk 150 feet: 4 PT Jail Goals Jail Goals PT Jail Goals Time Frame: Mar 29, 2020 Roll Left & Right (QC): 6 Sit to Lying (QC): 6 Lying-Sitting on Side/Bed(QC): 6 Sit to Stand (QC): 6 Chair/Qvw-lb-Swecc Xfer(QC): 6 Toilet Transfer (QC): 6 Car Transfer (QC): 6 Does the Patient Walk: Yes Walk 10 feet (QC): 6 Walk 50ft with 2 Turns (QC): 6 Walk 150 ft (QC): 6 Walking 10ft on Uneven Surface: 6 1 Step (curb) (QC): 4 4 Steps (QC): 4 12 Steps (QC): 88 Picking up an Object (QC): 4 Wheel 50 feet with 2 turns (QC: 9 Wheel 150 feet: 9 PT Plan Problem List Problem List: Activity Tolerance Treatment/Plan Treatment Plan: Continue Plan of Care Treatment Plan: Bed Mobility, Education, Functional Activity Ruthie, Functional Strength, Group Therapy, Gait, Safety, Therapeutic Exercise, Transfers Treatment Duration: Mar 29, 2020 Frequency: At least 5 of 7 days/Wk (IRF) Estimated Hrs Per Day: 1.5 hours per day Patient and/or Family Agrees t: Yes Safety Risks/Education Patient Education: Steps, Correct Positioning, Safety Issues Teaching Recipient: Patient Teaching Methods: Discussion Response to Teaching: Verbalize Understanding Time/GCodes Time In: 1100 Time Out: 1200 Total Billed Treatment Time: 60 Total Billed Treatment 1, GT (15m), FA x2 (30m) & EX (15m) HIMANSHU RODRIGUEZ ORDER CALLER Mar 12, 2020 11:59
--- NOTE | 2020-03-12 14:22 | Physical Therapy Daily Note ---
PT Daily Note-Current Subjective Pt sitting in recliner upon arrival. Pt agrees to PT. Pain Location: No Pain Reported Mental Status Patient Orientation: Person, Place, Time, Situation Transfers SCALE: Activities may be completed with or without assistive devices. 4-Yappibixon-pbqesti completes the activity by him/herself with no assistance from a helper. 5-Set-up or Clean-up Assistance-helper sets up or cleans up; patient completes activity. [place] assists only prior to or following the activity. 4-Supervision or Touching Assistance-helper provides verbal cues and/or touching/steadying and/or contact guard assistance as patient completes activity. Assistance may be provided throughout the activity or intermittently. 3-Partial/Moderate Assistance-helper does LESS THAN HALF the effort. [place] lifts, holds or supports trunk or limbs, but provides less than half the effort. 2-Substantial/Maximal Assistance-helper does MORE THAN HALF the effort. [place] lifts or holds trunk or limbs and provides more than half the effort. 4-Vsdmbweyo-mjtiqj does ALL the effort. Patient does none of the effort to complete the activity. Or, the assistance of 2 or more helpers is required for the patient to complete the activity. If activity was not attempted, code reason: 7-Patient Refused. 9-Not Applicable-not attempted and the patient did not perform the activity bef ore the current illness, exacerbation or injury. 10-Not Attempted due to Environmental Limitations-(lack of equipment, weather r estraints, etc.). 88-Not Attempted due to Medical Conditions or Safety Concerns. Sit to Stand (QC): 5 Toilet Transfer (QC): 5 Weight Bearing Full Weight Bearing Full Weight Bearing Gait Training Does the Patient Walk?: Yes Distance: 150' x2 Walk 10 feet (QC): 5 Walk 50 ft with 2 Turns(QC): 5 Walk 150 ft (QC): 5 Gait Persons Needed: 1 Gait Assistive Device: FWW Wheelchair Training Does the Pt Use a Wheelchair?: No Exercises NuStep Minutes: 10 NuStep Workload: 5 Treatments TF to standing, uses BR then amb. in hallway. Pt uses NuStep for 10m at WL 5 per pt request. Pt takes short RB then amb. in hallway, resting in recliner. All needs met, call light in hand. Assessment Current Status: Good Progress Pt is ne. tx well. PT Short Term Goals Short Term Goals Time Frame: Mar 15, 2020 Roll Left & Right: 6 Sit to lyin Lying to sitting on side of be: 4 Sit to stand: 4 Chair/yrt-me-zvkdu transfer: 4 Walk 10 feet: 4 Walk 50 feet with two turns: 4 Walk 150 feet: 4 PT Intermediate Goals Ice Skating Teacher Goals PT Ice Skating Teacher Goals Time Frame: Mar 29, 2020 Roll Left & Right (QC): 6 Sit to Lying (QC): 6 Lying-Sitting on Side/Bed(QC): 6 Sit to Stand (QC): 6 Chair/Myg-na-Yhkcm Xfer(QC): 6 Toilet Transfer (QC): 6 Car Transfer (QC): 6 Does the Patient Walk: Yes Walk 10 feet (QC): 6 Walk 50ft with 2 Turns (QC): 6 Walk 150 ft (QC): 6 Walking 10ft on Uneven Surface: 6 1 Step (curb) (QC): 4 4 Steps (QC): 4 12 Steps (QC): 88 Picking up an Object (QC): 4 Wheel 50 feet with 2 turns (QC: 9 Wheel 150 feet: 9 PT Plan Problem List Problem List: Activity Tolerance Treatment/Plan Treatment Plan: Continue Plan of Care Treatment Plan: Bed Mobility, Education, Functional Activity Ruthie, Functional Strength, Group Therapy, Gait, Safety, Therapeutic Exercise, Transfers Treatment Duration: Mar 29, 2020 Frequency: At least 5 of 7 days/Wk (IRF) Estimated Hrs Per Day: 1.5 hours per day Patient and/or Family Agrees t: Yes Safety Risks/Education Patient Education: Correct Positioning, Safety Issues Teaching Recipient: Patient Teaching Methods: Discussion Response to Teaching: Verbalize Understanding Time/GCodes Time In: 1330 Time Out: 1400 Total Billed Treatment Time: 30 Total Billed Treatment 1, GT (15m) & EX (15m) HIMANSHU RODRIGUEZ PTA Mar 12, 2020 14:22
--- NOTE | 2020-03-12 15:22 | NUR ---
CM/SS CONCURRENT DOCUMENTATION Visited with patient after she shared with therapy team that her daughter wanted her to go to a senior living permanently. Patient was residing with her daughter Mary Ann Burrell here in [place], Mary Ann reportedly stated she was scared for patient to return there if she was at risk of falling. Patient indicates she does have a tendency for periodic falls and that once she is down it takes two family members to help her up. Discussed at length, patient does not want to go into a community nursing facility. After acute rehab regime, she may not qualify for a Medicare skilled level of continued therapies, but if she did, it would be anticipated very short term. She would soon become private pay and states she could not afford it. Patient is insured Medicare and a Rx supplement, she is on disability until birthday [birth year] and when then receive social security. She also has her pension from her employment years she draws income from. She would not qualify for [employer] Medicaid. Patient does not agree to senior living placement. She will go to the home of her daughter Musa Silvestre Venus in [place] upon discharge, confirmed with Musa by phone. Child Psychology Teacher explored assisted living options with patient, particularly financially. Patient owns a home she is not living in at present and would need to sell that for the income boost to afford assisted living. Patient seems a good assisted living candidate if she can financially manage. Child Psychology Teacher is available to patient and daughters for discussion and resources if desired. Continue therapy care plan, monitor patient progress. Patient will be in [place] when discharged if HHC is recommended. She could go to outpatient therapies if family could transport. Patient no longer drives.
--- NOTE | 2020-03-12 16:30 | NUR ---
Discussed with pt that wants a UA per st cath. Pt agreed. I told pt I'd be right back, upon return [facility]. Will try again after dinner this evening. Instructed pt to use call light and ask for assistance when ambulating per fall precautions. Assisted back to bedside chair x 1 staff assist via FWW.
[2020-03-12 18:00] VITALS: BP 131/80
[2020-03-12] MEDS: SERTRALINE 50 MG (ZOLOFT) TABLET PO SCH (20:49)
[2020-03-12] MEDS: METOCLOPRAMIDE 10 MG (REGLAN) TAB PO PRN (20:49)
[2020-03-12] MEDS: ENOXAPARIN 40 MG/0.4 ML (LOVENOX) SYR SC SCH (20:50)
--- NOTE | 2020-03-12 20:50 | NUR ---
Pt would prefer to not be straight cathed for a UA but is willing to do a clean catch for a urine sample. Dr. Goodrich notified and no new orders at this time.
[2020-03-13 05:47] VITALS: BP 135/86
--- NOTE | 2020-03-13 06:36 | PM&R Progress Note ---
Subjective HPI/CC On Admission Date Seen by Provider: Mar 13, 2020 Time Seen by Provider: 11:00 Subjective/Events-last exam 03/13/20: Initially refused in/out cath and now she is willing since it is not going away Pyridium will be started after UA collected No issues otherwise 03/12/20: Needs pyridium Urine wiil be checked with in/out cath then after rounds she refused in/out cath so will talk to her about that Insulin decrease has helped prevent hypoglycemia 03/11/20: No major issues Decreasing insulin due to hypoglycemia Dizziness improved 03/10/20: Pt dizzy, took Meclizine which is a chronic issue DC the catheter 103 sugar so will hold off on insulin Bowels moved on March 05 so will initiate laxatives 03/09/20: Insomnia noted last night but she did run low on her blood sugar so will adjust her insulin down today Used her CPAP last night Short-term memory loss noted Has Carlene glucose monitoring system in place Review of Systems General: Fatigue, Malaise Genitourinary: Dysuria, Frequency Neurological: Weakness, Incoordination Objective Exam Vital Signs Vital Signs Date Time Temp Pulse Resp B/P (MAP) Pulse Ox O2 Delivery O2 Flow Rate FiO2 03/14/20 05:58 36.2 67 18 143/77 (99) 98 Room Air Capillary Refill : Less Than 3 SecondsLess Than 3 Seconds General Appearance: No Apparent Distress, WD/WN, Chronically ill HEENT: PERRL/EOMI, Normal ENT Inspection, Pharynx Normal Neck: Full Range of Motion, Normal Inspection, Non Tender, Supple, Carotid Bruit Respiratory: Chest Non Tender, Lungs Clear, Normal Breath Sounds, No Accessory Muscle Use, No Respiratory Distress Cardiovascular: Regular Rate, Rhythm, No Edema, No Gallop, No JVD, No Murmur, Normal Peripheral Pulses Gastrointestinal: Normal Bowel Sounds, No Organomegaly, No Pulsatile Mass, Non Tender, Soft Back: Normal Inspection, No CVA Tenderness, No Vertebral Tenderness Extremity: Normal Capillary Refill, Normal Inspection, Normal Range of Motion, Non Tender, No Calf Tenderness, No Pedal Edema Neurologic/Psychiatric: Alert, Oriented x3, Abnormal Gait, Depressed Affect, Facial Droop (right subtle finding), Motor Weakness (left 3/5 deficit old CVA 08/2018, right sided weakness 4/5 right leg 3/5 right arm) Skin: Normal Color, Warm/Dry Lymphatic: No Adenopathy Results/Procedures Lab Patient resulted labs reviewed. FIM Transfers Therapy Code Descriptions/Definitions Functional [place] Measure: 0=Not Assessed/NA 4=Minimal Assistance 1=Total Assistance 5=Supervision or Setup 2=Maximal Assistance 6=Modified [place] 3=Moderate Assistance 7=Complete IndependenceSCALE: Activities may be completed with or without assistive devices. 2-Lguaiswowj-czkczfv completes the activity by him/herself with no assistance from a helper. 5-Set-up or Clean-up Assistance-helper sets up or cleans up; patient completes activity. [place] assists only prior to or following the activity. 4-Supervision or Touching Assistance-helper provides verbal cues and/or touching/steadying and/or contact guard assistance as patient completes activity. Assistance may be provided throughout the activity or intermittently. 3-Partial/Moderate Assistance-helper does LESS THAN HALF the effort. [place] lifts, holds or supports trunk or limbs, but provides less than half the effort. 2-Substantial/Maximal Assistance-helper does MORE THAN HALF the effort. [place] lifts or holds trunk or limbs and provides more than half the effort. 8-Ezmrphdhs-ncveut does ALL the effort. Patient does none of the effort to complete the activity. Or, the assistance of 2 or more helpers is required for the patient to complete the activity. If activity was not attempted, code reason: 7-Patient Refused. 9-Not Applicable-not attempted and the patient did not perform the activity before the current illness, exacerbation or injury. 10-Not Attempted due to Environmental Limitations-(lack of equipment, weather restraints, etc.). 88-Not Attempted due to Medical Conditions or Safety Concerns. Roll Left to Right (QC): 6 Sit to Lying (QC): 6 Sit to Stand (QC): 5 Chair/Gan-nj-Sxbel Xfer(QC): 6 Car Transfer (QC): 4 Gait Training Does the Patient Walk?: Yes Distance: 150' x2 Walk 10 feet (QC): 5 Walk 50 ft with 2 Turns(QC): 5 Walk 150 ft (QC): 5 Walking 10ft/uneven surface-QC: 4 Gait Persons Needed: 1 Gait Assistive Device: FWW Wheelchair Training Does the Pt Use a Wheelchair?: No Wheel 50 ft with 2 turns (QC): 4 Wheel 150 ft (QC): 88 Stair Training Stair Training: Handrails/: 1 handrail #of Steps: 4 1 Step (curb) (QC): 4 4 Steps (QC): 4 12 Steps (QC): 88 Stairs: Pattern: Step to Balance Picking up an Object (QC): 4 ADL-Treatment Eating (QC): 6 Oral Hygiene (QC): 4 (SUP by sink. Completes oral care/ hair brushing for 5 min in stance. ) Bathing Location: L Arm, R Arm, L Upper Leg, R Upper Leg, L Lower Leg (including foot), R Lower Leg (including foot), Chest, Abdomen, Buttocks, Perineal Area Shower/Bathe Self (QC): 7 Upper Body Dressing (QC): 6 Lower Body Dressing (QC): 4 (SBA while in stance.) On/Off Footwear (QC): 6 (IND EOB) Toileting Hygiene (QC): 4 (SUP) Toilet Transfer (QC): 4 (SBA) Assessment/Plan Assessment and Plan Assess & Plan/Chief Complaint Assessment: Right sided weakness with facial droop now improved not a tPa candidate per Stroke center [facility] MRI inconclusive for new CVA CVA w/residual left facial droop and left upper and lower extremity weakness August 2018 s/p IRF course DM poorly controlled 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 at [facility] 2014 HTN HLP CRI Insomnia GERD Gastroparesis OP Neuropathy Hypoglycemia Plan: IRF protocol Home meds Accuchecks SSI Monitor closely 03/09/20: Monitor ambulation Increase use of AD Decrease insulin due to hypoglycemia 03/10/20: Hypoglycemia continues Decreasing more insulin Very brittle DM 03/11/20: Monitor dizziness Decrease insulin 03/12/20: Evaluate urine Pyridium 03/13/20: Pyridium after in/out cath Monitor sugars (1) Weakness Status: Acute (2) CVA (cerebral vascular accident) (3) TIA (transient ischemic attack) Status: Acute (4) Hyperglycemia due to diabetes mellitus Status: Acute (5) Insomnia (6) Left hemiparesis (7) Gastroparesis (8) Hypertension Status: Acute (9) GERD (gastroesophageal reflux disease) (10) Renal insufficiency (11) Neuropathy (12) Hyperlipemia (13) Osteoporosis (14) CAD (coronary artery disease) (15) Diabetes mellitus (16) Constipation (17) Dizziness Status: Acute JAG KIRKLAND DO Mar 13, 2020 06:36
[2020-03-13] MEDS: inSUlin (REGULAR) HUMAN 1 UNIT/0.01 ML (CHARGE PER UNIT) SC SCH ×3 (06:39→17:21)
[2020-03-13] MEDS: MAGNESIUM OXIDE (MAG-OX)400 MG TAB PO SCH (08:25)
[2020-03-13] MEDS: ASPIRIN E.C. 81 MG (ECOTRIN) TAB PO SCH (08:25)
[2020-03-13] MEDS: ATENOLOL 25 MG (TENORMIN) TAB PO SCH (08:25)
[2020-03-13] MEDS: CLOPIDOGREL 75 MG (PLAVIX) TABLET PO SCH (08:25)
[2020-03-13] MEDS: RANOLAZINE ER 500 MG TAB (RANEXA) PO SCH ×2 (08:25→20:42)
[2020-03-13] MEDS: ALLOPURINOL 300 MG (ZYLOPRIM) TAB PO SCH (08:26)
[2020-03-13] MEDS: polyethylene glycoL POWDER 17 GM (MIRALAX) PACK PO SCH ×2 (08:28→20:41)
[2020-03-13] MEDS: DOCUSATE SODIUM 100 MG (COLACE) CAP PO SCH ×2 (08:28→20:41)
[2020-03-13] MEDS: inSUlin NPH (NovoLIN N) 1 UNIT/0.01 ML (CHARGE PER UNIT) SQ SCH ×2 (08:28→20:41)
[2020-03-13] MEDS: SENNA W/DOCUSATE (SENOKOT S) TABLET PO SCH ×2 (08:29→20:41)
--- NOTE | 2020-03-13 09:26 | Physical Therapy Daily Note ---
PT Daily Note-Current Subjective Pt. pleasant and agrees to Rx. Pain Location: No Pain Reported Mental Status Patient Orientation: Normal For Age Attachments: Other-See Comments (mask out of room) Transfers SCALE: Activities may be completed with or without assistive devices. 2-Jxdvarusgj-blfubdn completes the activity by him/herself with no assistance from a helper. 5-Set-up or Clean-up Assistance-helper sets up or cleans up; patient completes activity. [place] assists only prior to or following the activity. 4-Supervision or Touching Assistance-helper provides verbal cues and/or touc tone/steadying and/or contact guard assistance as patient completes activity. Assistance may be provided throughout the activity or intermittently. 3-Partial/Moderate Assistance-helper does LESS THAN HALF the effort. [place] lifts, holds or supports trunk or limbs, but provides less than half the effort. 2-Substantial/Maximal Assistance-helper does MORE THAN HALF the effort. [place] lifts or holds trunk or limbs and provides more than half the effort. 9-Zgotwdjyg-pomvui does ALL the effort. Patient does none of the effort to complete the activity. Or, the assistance of 2 or more helpers is required for the patient to complete the activity. If activity was not attempted, code reason: 7-Patient Refused. 9-Not Applicable-not attempted and the patient did not perform the activity before the current illness, exacerbation or injury. 10-Not Attempted due to Environmental Limitations-(lack of equipment, weather restraints, etc.). 88-Not Attempted due to Medical Conditions or Safety Concerns. all bed, chair car simulator and toilet TRFs mod I Weight Bearing Full Weight Bearing Full Weight Bearing Gait Training Gait Assistive Device: FWW 200ft x 2 SBA Exercises Seated Therapy Exercises: Ankle pumps, Sit to stand, Long arc quads, Hip flexion, Hip abd/add Seated Reps: 12 NuStep Minutes: 12 NuStep Workload: 5 Assessment Current Status: Good Progress PT Short Term Goals Short Term Goals Time Frame: Mar 15, 2020 Roll Left & Right: 6 Sit to lyin Lying to sitting on side of be: 4 Sit to stand: 4 Chair/guk-gx-afajw transfer: 4 Walk 10 feet: 4 Walk 50 feet with two turns: 4 Walk 150 feet: 4 PT Human Resources Partner Goals Human Resources Partner Goals PT Human Resources Partner Goals Time Frame: Mar 29, 2020 Roll Left & Right (QC): 6 Sit to Lying (QC): 6 Lying-Sitting on Side/Bed(QC): 6 Sit to Stand (QC): 6 Chair/Aic-ca-Wvofd Xfer(QC): 6 Toilet Transfer (QC): 6 Car Transfer (QC): 6 Does the Patient Walk: Yes Walk 10 feet (QC): 6 Walk 50ft with 2 Turns (QC): 6 Walk 150 ft (QC): 6 Walking 10ft on Uneven Surface: 6 1 Step (curb) (QC): 4 4 Steps (QC): 4 12 Steps (QC): 88 Picking up an Object (QC): 4 Wheel 50 feet with 2 turns (QC: 9 Wheel 150 feet: 9 PT Plan Treatment/Plan Treatment Plan: Continue Plan of Care Treatment Plan: Bed Mobility, Education, Functional Activity Ruthie, Functional Strength, Group Therapy, Gait, Safety, Therapeutic Exercise, Transfers Treatment Duration: Mar 29, 2020 Frequency: At least 5 of 7 days/Wk (IRF) Estimated Hrs Per Day: 1.5 hours per day Patient and/or Family Agrees t: Yes Safety Risks/Education Patient Education: Gait Training, Issued Written HEP Time/GCodes Time In: 850 Time Out: 915 Total Billed Treatment Time: 25 Total Billed Treatment 1,GT10m,EX15m SEYMOUR PACE TR[employer] MECHANIC Mar 13, 2020 09:26
[2020-03-13] MEDS: PHENAZOPYRIDINE 100 MG (PYRIDIUM) TABLET PO PRN (13:07)
--- NOTE | 2020-03-13 16:00 | NUR ---
STRAIGHT CATH FOR UA. STARTED ON PYRIDIUM, PATIENT EDUCATED ON HOW IT CAN TURN URINE ORANGE.
[2020-03-13 16:56] LABS: BILIRUBIN,URINE NEGATIVE (NEGATIVE); CLARITY,URINE CLEAR; COLOR,URINE YELLOW; GLUCOSE, URINE (UA) 1+ (NEGATIVE); KETONES,URINE NEGATIVE (NEGATIVE); LEUKOCYTE ESTERASE ,URINE NEGATIVE (NEGATIVE); NITRITE,URINE NEGATIVE (NEGATIVE); PH,URINE 6.5 (5-9); PROTEIN,URINE 1+ (NEGATIVE)
[2020-03-13 17:04] LABS: BACTERIA,URINE FEW /HPF; SQUAMOUS EPITHELIAL CELL,UR 0-2 /HPF; WBC,URINE 0-2 /HPF
[2020-03-13 17:13] VITALS: BP 150/83
[2020-03-13] MEDS: ENOXAPARIN 40 MG/0.4 ML (LOVENOX) SYR SC SCH (20:41)
[2020-03-13] MEDS: MECLIZINE 25 MG (ANTIVERT) TAB PO PRN (20:41)
[2020-03-13] MEDS: SERTRALINE 50 MG (ZOLOFT) TABLET PO SCH (20:42)
[2020-03-14 05:58] VITALS: BP 143/77
[2020-03-14] MEDS: inSUlin (REGULAR) HUMAN 1 UNIT/0.01 ML (CHARGE PER UNIT) SC SCH ×3 (06:44→16:50)
[2020-03-14 08:00] VITALS: BP 132/66
[2020-03-14] MEDS: SENNA W/DOCUSATE (SENOKOT S) TABLET PO SCH ×2 (09:00→20:36)
[2020-03-14] MEDS: DOCUSATE SODIUM 100 MG (COLACE) CAP PO SCH ×2 (09:00→20:36)
[2020-03-14] MEDS: polyethylene glycoL POWDER 17 GM (MIRALAX) PACK PO SCH ×2 (09:00→20:39)
[2020-03-14] MEDS: RANOLAZINE ER 500 MG TAB (RANEXA) PO SCH ×2 (09:58→20:36)
[2020-03-14] MEDS: CLOPIDOGREL 75 MG (PLAVIX) TABLET PO SCH (09:58)
[2020-03-14] MEDS: MAGNESIUM OXIDE (MAG-OX)400 MG TAB PO SCH (09:59)
[2020-03-14] MEDS: ATENOLOL 25 MG (TENORMIN) TAB PO SCH (09:59)
[2020-03-14] MEDS: ASPIRIN E.C. 81 MG (ECOTRIN) TAB PO SCH (09:59)
[2020-03-14] MEDS: ALLOPURINOL 300 MG (ZYLOPRIM) TAB PO SCH (10:00)
[2020-03-14] MEDS: inSUlin NPH (NovoLIN N) 1 UNIT/0.01 ML (CHARGE PER UNIT) SQ SCH ×2 (10:02→20:40)
[2020-03-14] MEDS: PHENAZOPYRIDINE 100 MG (PYRIDIUM) TABLET PO PRN (10:10)
--- NOTE | 2020-03-14 13:00 | NUR ---
STATES DRIBBLES URINE ALL THE WAY FROM BED TO BATHROOM WHICH STARTED WHEN UTI DIAGNOSED LAST MONTH. PYRIDIUM PUT ON A SCHEDULED BASIS BECAUSE PATIENT STATES CAN'T REMEMBER TO ASK FOR IT. NYSTATIN STARTED FOR REDDENED GROIN AREA.
--- NOTE | 2020-03-14 13:07 | PM&R Progress Note ---
Subjective HPI/CC On Admission Date Seen by Provider: Mar 14, 2020 Time Seen by Provider: 13:00 Subjective/Events-last exam 03/14/20: Updated patient on normal UA Pyridium will be given scheduled No pain 03/13/20: Initially refused in/out cath and now she is willing since it is not going away Pyridium will be started after UA collected No issues otherwise 03/12/20: Needs pyridium Urine wiil be checked with in/out cath then after rounds she refused in/out cath so will talk to her about that Insulin decrease has helped prevent hypoglycemia 03/11/20: No major issues Decreasing insulin due to hypoglycemia Dizziness improved 03/10/20: Pt dizzy, took Meclizine which is a chronic issue DC the catheter 103 sugar so will hold off on insulin Bowels moved on March 05 so will initiate laxatives 03/09/20: Insomnia noted last night but she did run low on her blood sugar so will adjust her insulin down today Used her CPAP last night Short-term memory loss noted Has [employer] glucose monitoring system in place Review of Systems Neurological: Weakness, Incoordination Objective Exam Vital Signs Vital Signs Date Time Temp Pulse Resp B/P (MAP) Pulse Ox O2 Delivery O2 Flow Rate FiO2 03/14/20 17:27 36.4 69 16 134/80 (98) 97 Room Air Capillary Refill : Less Than 3 SecondsLess Than 3 Seconds General Appearance: No Apparent Distress, WD/WN, Chronically ill HEENT: PERRL/EOMI, Normal ENT Inspection, Pharynx Normal Neck: Full Range of Motion, Normal Inspection, Non Tender, Supple, Carotid Bruit Respiratory: Chest Non Tender, Lungs Clear, Normal Breath Sounds, No Accessory Muscle Use, No Respiratory Distress Cardiovascular: Regular Rate, Rhythm, No Edema, No Gallop, No JVD, No Murmur, Normal Peripheral Pulses Gastrointestinal: Normal Bowel Sounds, No Organomegaly, No Pulsatile Mass, Non Tender, Soft Back: Normal Inspection, No CVA Tenderness, No Vertebral Tenderness Extremity: Normal Capillary Refill, Normal Inspection, Normal Range of Motion, Non Tender, No Calf Tenderness, No Pedal Edema Neurologic/Psychiatric: Alert, Oriented x3, Abnormal Gait, Depressed Affect, Facial Droop (right subtle finding), Motor Weakness (left 3/5 deficit old CVA 08/2018, right sided weakness 4/5 right leg 3/5 right arm) Skin: Normal Color, Warm/Dry Lymphatic: No Adenopathy Results/Procedures Lab Patient resulted labs reviewed. FIM Transfers Therapy Code Descriptions/Definitions Functional [place] Measure: 0=Not Assessed/NA 4=Minimal Assistance 1=Total Assistance 5=Supervision or Setup 2=Maximal Assistance 6=Modified [place] 3=Moderate Assistance 7=Complete IndependenceSCALE: Activities may be completed with or without assistive devices. 2-Islronlagu-ebcpjao completes the activity by him/herself with no assistance from a helper. 5-Set-up or Clean-up Assistance-helper sets up or cleans up; patient completes activity. [place] assists only prior to or following the activity. 4-Supervision or Touching Assistance-helper provides verbal cues and/or touching/steadying and/or contact guard assistance as patient completes activity. Assistance may be provided throughout the activity or intermittently. 3-Partial/Moderate Assistance-helper does LESS THAN HALF the effort. [place] lifts, holds or supports trunk or limbs, but provides less than half the effort. 2-Substantial/Maximal Assistance-helper does MORE THAN HALF the effort. [place] lifts or holds trunk or limbs and provides more than half the effort. 7-Rkwzxyzrl-drhuxq does ALL the effort. Patient does none of the effort to compl ete the activity. Or, the assistance of 2 or more helpers is required for the patient to complete the activity. If activity was not attempted, code reason: 7-Patient Refused. 9-Not Applicable-not attempted and the patient did not perform the activity before the current illness, exacerbation or injury. 10-Not Attempted due to Environmental Limitations-(lack of equipment, weather restraints, etc.). 88-Not Attempted due to Medical Conditions or Safety Concerns. Roll Left to Right (QC): 6 Sit to Lying (QC): 6 Sit to Stand (QC): 5 Chair/Lcc-np-Lameo Xfer(QC): 6 Car Transfer (QC): 4 Gait Training Does the Patient Walk?: Yes Distance: 150' x2 Walk 10 feet (QC): 5 Walk 50 ft with 2 Turns(QC): 5 Walk 150 ft (QC): 5 Walking 10ft/uneven surface-QC: 4 Gait Persons Needed: 1 Gait Assistive Device: FWW Wheelchair Training Does the Pt Use a Wheelchair?: No Wheel 50 ft with 2 turns (QC): 4 Wheel 150 ft (QC): 88 Stair Training Stair Training: Handrails/: 1 handrail #of Steps: 4 1 Step (curb) (QC): 4 4 Steps (QC): 4 12 Steps (QC): 88 Stairs: Pattern: Step to Balance Picking up an Object (QC): 4 ADL-Treatment Eating (QC): 6 Oral Hygiene (QC): 4 (SUP by sink. Completes oral care/ hair brushing for 5 min in stance. ) Bathing Location: L Arm, R Arm, L Upper Leg, R Upper Leg, L Lower Leg (including foot), R Lower Leg (including foot), Chest, Abdomen, Buttocks, Perineal Area Shower/Bathe Self (QC): 7 Upper Body Dressing (QC): 6 Lower Body Dressing (QC): 4 (SBA while in stance.) On/Off Footwear (QC): 6 (IND EOB) Toileting Hygiene (QC): 4 (SUP) Toilet Transfer (QC): 4 (SBA) Assessment/Plan Assessment and Plan Assess & Plan/Chief Complaint Assessment: Right sided weakness with facial droop now improved not a tPa candidate per Stroke center [facility] MRI inconclusive for new CVA CVA w/residual left facial droop and left upper and lower extremity weakness August 2018 s/p IRF course DM poorly controlled 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 at [facility] 2014 HTN HLP CRI Insomnia GERD Gastroparesis OP Neuropathy Hypoglycemia Plan: IRF protocol Home meds Accuchecks SSI Monitor closely 03/09/20: Monitor ambulation Increase use of AD Decrease insulin due to hypoglycemia 03/10/20: Hypoglycemia continues Decreasing more insulin Very brittle DM 03/11/20: Monitor dizziness Decrease insulin 03/12/20: Evaluate urine Pyridium 03/13/20: Pyridium after in/out cath Monitor sugars 03/14/20: Monitor closely Pyridium (1) Weakness Status: Acute (2) CVA (cerebral vascular accident) (3) TIA (transient ischemic attack) Status: Acute (4) Hyperglycemia due to diabetes mellitus Status: Acute (5) Insomnia (6) Left hemiparesis (7) Gastroparesis (8) Hypertension Status: Acute (9) GERD (gastroesophageal reflux disease) (10) Renal insufficiency (11) Neuropathy (12) Hyperlipemia (13) Osteoporosis (14) CAD (coronary artery disease) (15) Diabetes mellitus (16) Constipation (17) Dizziness Status: Acute JAG KIRKLAND DO Mar 14, 2020 13:07
[2020-03-14] MEDS: METOCLOPRAMIDE 10 MG (REGLAN) TAB PO PRN (16:50)
[2020-03-14 17:27] VITALS: BP 134/80
[2020-03-14] MEDS: PHENAZOPYRIDINE 100 MG (PYRIDIUM) TABLET PO SCH (18:12)
[2020-03-14] MEDS: ENOXAPARIN 40 MG/0.4 ML (LOVENOX) SYR SC SCH (20:39)
[2020-03-14] MEDS: SERTRALINE 50 MG (ZOLOFT) TABLET PO SCH (20:39)
[2020-03-14] MEDS: NYSTATIN CREAM (MYCOSTATIN) 30 GM TUBE TP SCH (20:43)
[2020-03-15 05:23] LABS: BASOPHILS % (AUTO) 0 % (0-10); EOSINOPHILS # (AUTO) 0.1 10^3/uL (0.0-0.3); EOSINOPHILS % (AUTO) 1 % (0-10); HEMATOCRIT 37 % (35-52); HEMOGLOBIN 11.8 g/dL (11.5-16.0); LYMPHOCYTES # (AUTO) 1.8 10^3/uL (1.0-4.0); LYMPHOCYTES % (AUTO) 29 % (12-44); MEAN CORPUSCULAR HEMOGLOBIN 32 pg (25-34); MEAN CORPUSCULAR HGB CONC 32 g/dL (32-36); MEAN CORPUSCULAR VOLUME 100 fL (80-99); MEAN PLATELET VOLUME 12.4 fL (9.0-12.2); MONOCYTES # (AUTO) 0.6 10^3/uL (0.0-1.0); MONOCYTES % (AUTO) 9 % (0-12); NEUTROPHILS # (AUTO) 3.7 10^3/uL (1.8-7.8); NEUTROPHILS % (AUTO) 60 % (42-75); PLATELET COUNT 122 10^3/uL (130-400); WHITE BLOOD COUNT 6.2 10^3/uL (4.3-11.0)
[2020-03-15 05:40] LABS: ALBUMIN 3.5 GM/DL (3.2-4.5); POTASSIUM 5.4 MMOL/L (3.6-5.0)
[2020-03-15 05:42] VITALS: BP 128/79
[2020-03-15 05:42] LABS: CALCIUM 10.3 MG/DL (8.5-10.1)
[2020-03-15 05:43] LABS: TOTAL PROTEIN 6.2 GM/DL (6.4-8.2)
[2020-03-15 05:45] LABS: BILIRUBIN,TOTAL 0.4 MG/DL (0.1-1.0)
[2020-03-15 05:46] LABS: CREATININE SERUM 1.97 MG/DL (0.60-1.30)
--- NOTE | 2020-03-15 05:53 | PM&R Progress Note ---
Subjective HPI/CC On Admission Date Seen by Provider: Mar 15, 2020 Time Seen by Provider: 08:30 Subjective/Events-last exam 03/15/20: Creatinine 1.97 Potassium 3.4 Needs to have a BM DC planned for Sunday03/14/20: Updated patient on normal UA Pyridium will be given scheduled No pain 03/13/20: Initially refused in/out cath and now she is willing since it is not going away Pyridium will be started after UA collected No issues otherwise 03/12/20: Needs pyridium Urine wiil be checked with in/out cath then after rounds she refused in/out cath so will talk to her about that Insulin decrease has helped prevent hypoglycemia 03/11/20: No major issues Decreasing insulin due to hypoglycemia Dizziness improved 03/10/20: Pt dizzy, took Meclizine which is a chronic issue DC the catheter 103 sugar so will hold off on insulin Bowels moved on March 05 so will initiate laxatives 03/09/20: Insomnia noted last night but she did run low on her blood sugar so will adjust her insulin down today Used her CPAP last night Short-term memory loss noted Has [employer] glucose monitoring system in place Review of Systems Genitourinary: Dysuria, Frequency Neurological: Weakness, Incoordination Objective Exam Vital Signs Vital Signs Date Time Temp Pulse Resp B/P (MAP) Pulse Ox O2 Delivery O2 Flow Rate FiO2 03/15/20 17:10 36.2 65 18 152/86 (108) 96 Room Air Capillary Refill : Less Than 3 SecondsLess Than 3 Seconds General Appearance: No Apparent Distress, WD/WN, Chronically ill HEENT: PERRL/EOMI, Normal ENT Inspection, Pharynx Normal Neck: Full Range of Motion, Normal Inspection, Non Tender, Supple, Carotid Bruit Respiratory: Chest Non Tender, Lungs Clear, Normal Breath Sounds, No Accessory Muscle Use, No Respiratory Distress Cardiovascular: Regular Rate, Rhythm, No Edema, No Gallop, No JVD, No Murmur, Normal Peripheral Pulses Gastrointestinal: Normal Bowel Sounds, No Organomegaly, No Pulsatile Mass, Non Tender, Soft Back: Normal Inspection, No CVA Tenderness, No Vertebral Tenderness Extremity: Normal Capillary Refill, Normal Inspection, Normal Range of Motion, Non Tender, No Calf Tenderness, No Pedal Edema Neurologic/Psychiatric: Alert, Oriented x3, Abnormal Gait, Depressed Affect, Facial Droop (right subtle finding), Motor Weakness (left 3/5 deficit old CVA 08/2018, right sided weakness 4/5 right leg 3/5 right arm) Skin: Normal Color, Warm/Dry Lymphatic: No Adenopathy Results/Procedures Lab Laboratory Tests 03/15/20 04:40 Patient resulted labs reviewed. FIM Transfers Therapy Code Descriptions/Definitions Functional [place] Measure: 0=Not Assessed/NA 4=Minimal Assistance 1=Total Assistance 5=Supervision or Setup 2=Maximal Assistance 6=Modified [place] 3=Moderate Assistance 7=Complete IndependenceSCALE: Activities may be completed with or without assistive devices. 2-Yzublynayv-uenbupy completes the activity by him/herself with no assistance from a helper. 5-Set-up or Clean-up Assistance-helper sets up or cleans up; patient completes activity. [place] assists only prior to or following the activity. 4-Supervision or Touching Assistance-helper provides verbal cues and/or touching/steadying and/or contact guard assistance as patient completes activity. Assistance may be provided throughout the activity or intermittently. 3-Partial/Moderate Assistance-helper does LESS THAN HALF the effort. [place] lifts, holds or supports trunk or limbs, but provides less than half the effort. 2-Substantial/Maximal Assistance-helper does MORE THAN HALF the effort. [place] lifts or holds trunk or limbs and provides more than half the effort. 0-Hxwtoejya-ruclby does ALL the effort. Patient does none of the effort to complete the activity. Or, the assistance of 2 or more helpers is required for the patient to complete the activity. If activity was not attempted, code reason: 7-Patient Refused. 9-Not Applicable-not attempted and the patient did not perform the activity before the current illness, exacerbation or injury. 10-Not Attempted due to Environmental Limitations-(lack of equipment, weather restraints, etc.). 88-Not Attempted due to Medical Conditions or Safety Concerns. Roll Left to Right (QC): 6 Sit to Lying (QC): 6 Sit to Stand (QC): 5 Chair/Rez-ly-Pfrzc Xfer(QC): 6 Car Transfer (QC): 4 Gait Training Does the Patient Walk?: Yes Distance: 150' x2 Walk 10 feet (QC): 5 Walk 50 ft with 2 Turns(QC): 5 Walk 150 ft (QC): 5 Walking 10ft/uneven surface-QC: 4 Gait Persons Needed: 1 Gait Assistive Device: FWW Wheelchair Training Does the Pt Use a Wheelchair?: No Wheel 50 ft with 2 turns (QC): 4 Wheel 150 ft (QC): 88 Stair Training Stair Training: Handrails/: 1 handrail #of Steps: 4 1 Step (curb) (QC): 4 4 Steps (QC): 4 12 Steps (QC): 88 Stairs: Pattern: Step to Balance Picking up an Object (QC): 4 ADL-Treatment Eating (QC): 6 Oral Hygiene (QC): 4 (SUP by sink. Completes oral care/ hair brushing for 5 min in stance. ) Bathing Location: L Arm, R Arm, L Upper Leg, R Upper Leg, L Lower Leg (including foot), R Lower Leg (including foot), Chest, Abdomen, Buttocks, Perineal Area Shower/Bathe Self (QC): 7 Upper Body Dressing (QC): 6 Lower Body Dressing (QC): 4 (SBA while in stance.) On/Off Footwear (QC): 6 (IND EOB) Toileting Hygiene (QC): 4 (SUP) Toilet Transfer (QC): 4 (SBA) Assessment/Plan Assessment and Plan Assess & Plan/Chief Complaint Assessment: Right sided weakness with facial droop now improved not a tPa candidate per Stroke center [facility] MRI inconclusive for new CVA CVA w/residual left facial droop and left upper and lower extremity weakness August 2018 s/p IRF course DM poorly controlled 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 at [facility] 2014 HTN HLP CRI Insomnia GERD Gastroparesis OP Neuropathy Hypoglycemia Plan: IRF protocol Home meds Accuchecks SSI Monitor closely 03/09/20: Monitor ambulation Increase use of AD Decrease insulin due to hypoglycemia 03/10/20: Hypoglycemia continues Decreasing more insulin Very brittle DM 03/11/20: Monitor dizziness Decrease insulin 03/12/20: Evaluate urine Pyridium 03/13/20: Pyridium after in/out cath Monitor sugars 03/14/20: Monitor closely Pyridium 03/15/20: UA normal Monitor sugars (1) Weakness Status: Acute (2) CVA (cerebral vascular accident) (3) TIA (transient ischemic attack) Status: Acute (4) Hyperglycemia due to diabetes mellitus Status: Acute (5) Insomnia (6) Left hemiparesis (7) Gastroparesis (8) Hypertension Status: Acute (9) GERD (gastroesophageal reflux disease) (10) Renal insufficiency (11) Neuropathy (12) Hyperlipemia (13) Osteoporosis (14) CAD (coronary artery disease) (15) Diabetes mellitus (16) Constipation (17) Dizziness Status: Acute JAG KIRKLAND DO Mar 15, 2020 05:53
[2020-03-15] MEDS: inSUlin (REGULAR) HUMAN 1 UNIT/0.01 ML (CHARGE PER UNIT) SC SCH ×3 (05:59→16:44)
[2020-03-15] MEDS: RANOLAZINE ER 500 MG TAB (RANEXA) PO SCH ×2 (07:45→20:35)
[2020-03-15] MEDS: ASPIRIN E.C. 81 MG (ECOTRIN) TAB PO SCH (07:45)
[2020-03-15] MEDS: ALLOPURINOL 300 MG (ZYLOPRIM) TAB PO SCH (07:45)
[2020-03-15] MEDS: FUROSEMIDE 20 MG (LASIX) TAB PO SCH (07:45)
[2020-03-15] MEDS: ATENOLOL 25 MG (TENORMIN) TAB PO SCH (07:45)
[2020-03-15] MEDS: MAGNESIUM OXIDE (MAG-OX)400 MG TAB PO SCH (07:45)
[2020-03-15] MEDS: CLOPIDOGREL 75 MG (PLAVIX) TABLET PO SCH (07:46)
[2020-03-15] MEDS: SENNA W/DOCUSATE (SENOKOT S) TABLET PO SCH ×2 (07:46→20:37)
[2020-03-15] MEDS: PHENAZOPYRIDINE 100 MG (PYRIDIUM) TABLET PO SCH ×3 (07:46→18:08)
[2020-03-15] MEDS: inSUlin NPH (NovoLIN N) 1 UNIT/0.01 ML (CHARGE PER UNIT) SQ SCH ×2 (07:47→20:44)
[2020-03-15] MEDS: NYSTATIN CREAM (MYCOSTATIN) 30 GM TUBE TP SCH ×3 (07:47→20:44)
[2020-03-15] MEDS: DOCUSATE SODIUM 100 MG (COLACE) CAP PO SCH ×2 (07:48→20:37)
[2020-03-15] MEDS: polyethylene glycoL POWDER 17 GM (MIRALAX) PACK PO SCH ×2 (07:48→20:37)
[2020-03-15] MEDS: METOCLOPRAMIDE 10 MG (REGLAN) TAB PO PRN (07:51)
--- NOTE | 2020-03-15 08:09 | Occupational Ther Daily Note ---
OT Current Status-Daily Note Subjective Pt AxO, up on EOB this am with nursing. Pt denies pain, states got a lot of rest this weekend. States spoke with daughters and plans to d/c home Sunday evening with daughter in [place]. Pt agrees to ADLs this date. Mental Status/Objective Patient Orientation: Person, Place, Situation, Normal For Age ADL-Treatment Therapy Code Descriptions/Definitions Functional [place] Measure: 0=Not Assessed/NA 4=Minimal Assistance 1=Total Assistance 5=Supervision or Setup 2=Maximal Assistance 6=Modified [place] 3=Moderate Assistance 7=Complete IndependenceSCALE: Activities may be completed with or without assistive devices. 7-Bcywjrhbrm-vkfuvav completes the activity by him/herself with no assistance from a helper. 5-Set-up or Clean-up Assistance-helper sets up or cleans up; patient completes activity. [place] assists only prior to or following the activity. 4-Supervision or Touching Assistance-helper provides verbal cues and/or touching/steadying and/or contact guard assistance as patient completes activity. Assistance may be provided throughout the activity or intermittently. 3-Partial/Moderate Assistance-helper does LESS THAN HALF the effort. [place] lifts, holds or supports trunk or limbs, but provides less than half the effort. 2-Substantial/Maximal Assistance-helper does MORE THAN HALF the effort. [place] lifts or holds trunk or limbs and provides more than half the effort. 3-Enxnyrvkf-vvbdnx does ALL the effort. Patient does none of the effort to complete the activity. Or, the assistance of 2 or more helpers is required for the patient to complete the activity. If activity was not attempted, code reason: 7-Patient Refused. 9-Not Applicable-not attempted and the patient did not perform the activity before the current illness, exacerbation or injury. 10-Not Attempted due to Environmental Limitations-(lack of equipment, weather restraints, etc.). 88-Not Attempted due to Medical Conditions or Safety Concerns. Eating (QC): 6 Oral Hygiene (QC): 4 (SBA, pt completes entire task in stance, though pt's back is hunched. Pt is questioned how she is feeling, stating "My back is giving out." Chair placed behind pt, education on notifying staff on these sx and also safety/ energy conservation and planning (as outlined) at home for increased safety/ decreased fall risk. Pt agrees. ) Bathing Location: L Arm, R Arm, L Upper Leg, R Upper Leg, L Lower Leg (inc luding foot), R Lower Leg (including foot), Chest, Abdomen, Buttocks, Perineal Area Shower/Bathe Self (QC): 5 (s/u showeringSBA shower transfer) Upper Body Dressing (QC): 5 (s/u, completes on sc. ) Lower Body Dressing (QC): 4 (SBA in stance. SUP in sit on sc. ) On/Off Footwear: 6 (IND) Toileting Hygiene (QC): 4 (SUP) Toilet Transfer (QC): 4 (SUP, use of walker) Other Treatment Pt completes all sit to stands with SBA-SUP with use of walker. Ambulates with SBA. Pt completes all ADLs as outlined, cues for rest breaks. Pt is educated on planning rest breaks through activities and situating rollator seat behind pt to prepare for breaks prior to back/ UE/ LE weakening with extended stance. Pt agrees, stating her daughter does that at times, though she believes she will be able to manage that. Pt runs through HEP by completing 5 reps bilaterally with minimal cues/ written direction for clarification for home abilities. Pt completes laundry task, ambulating ~1/2 distance to laundry room, taking rest, completes entire washer to dryer transfer and washing tasks before taking rest break. Pt is educated on safe hand placement during task for increased support. Pt ambulates entire way to gym, completing abdominal exercises in chair/ EOM with emphasis on L side strengthening/ balance. pt completes 2 rounds of 5 exercises with 10 repetitions each to address core strength. Pt states an increased difficulty with L sided tasks, stating, "Everything wants to lean toward the L." Pt returns to room with 1 rest break, sits in recliner with all needs met, call light in reach. Education OT Patient Education: Correct positioning, Energy conservation, Exercise program, Home exercise program, Modified ADL techniques, Progress toward Goal/Update tx plan, Purpose of tx/functional activities, Safety issues, Transfer techniques Teaching Recipient: Patient Teaching Methods: Demonstration, Discussion Response to Teaching: Verbalize Understanding, Return Demonstration OT Short Term Goals Short Term Goals Time Frame: Mar 15, 2020 Eatin Oral hygiene: 4 Toileting hygiene: 4 Shower/bathe self: 3 Upper body dressin Lower body dressin Putting on/taking off footwear: 4 OT Shelter Goals Shelter Goals Time Frame: Mar 22, 2020 Eating (QC): 6 Oral Hygiene (QC): 6 Toileting Hygiene (QC): 6 Shower/Bathe Self (QC): 4 Upper Body Dressing (QC): 5 Lower Body Dressing (QC): 5 On/Off Footwear (QC): 5 Additional Goals: 1-Demonstrate ADL Tasks, 2-Verbalize Understanding, 3- ImproveStrength/Ruthie 1=Demonstrate adherence to instructed precautions during ADL tasks. 2=Patient will verbalize/demonstrate understanding of assistive devices/modifications for ADL. 3=Patient will improve strength/tolerance for activity to enable patient to perform ADL's. OT Education/Plan Problem List/Assessment Assessment: Decreased Activ Tolerance, Decreased UE Strength, Dependent Transfers, Impaired Funct Balance, Impaired I ADL's, Impaired Self-Care Skills Discharge Recommendations Plan/Recommendations: Continue POC Therapy Discharge Recommendati: Intermittent Supervision, Home & Family Treatment Plan/Plan of Care Treatment,Training & Education: Yes Patient would benefit from OT for education, treatment and training to promote independence in ADL's, mobility, safety and/or upper extremity function for ADL's. Plan of Care: ADL Retraining, Functional Mobility, UE Funct Exercise/Act Treatment Duration: Mar 22, 2020 Frequency: At least 5 of 7 days/Wk (IRF) Estimated Hrs Per Day: 1.5 hours per day Agreement: Yes Rehab Potential: Good Time/GCodes Start Time: 07:45 Stop Time: 09:15 Total Time Billed (hr/min): 90 Billed Treatment Time 1, ADL 3 (45), FA (15), EX 2 (30) = 90 FELIX CADENA OTR Mar 15, 2020 08:09
--- NOTE | 2020-03-15 11:58 | Physical Therapy Daily Note ---
PT Daily Note-Current Subjective SW informs PT that Dr has stated pt. will DC tomorrow. Pt. states she is fine with that and feels she will do well and has family with her 25/09. Pain Location: No Pain Reported Mental Status Patient Orientation: Normal For Age Transfers SCALE: Activities may be completed with or without assistive devices. 1-Jawcuhgmwl-hoojqmg completes the activity by him/herself with no assistance from a helper. 5-Set-up or Clean-up Assistance-helper sets up or cleans up; patient completes activity. [place] assists only prior to or following the activity. 4-Supervision or Touching Assistance-helper provides verbal cues and/or touching/steadying and/or contact guard assistance as patient completes activity. Assistance may be provided throughout the activity or intermittently. 3-Partial/Moderate Assistance-helper does LESS THAN HALF the effort. [place] lifts, holds or supports trunk or limbs, but provides less than half the effort. 2-Substantial/Maximal Assistance-helper does MORE THAN HALF the effort. [place] lifts or holds trunk or limbs and provides more than half the effort. 5-Zfgqrinee-xzjrvy does ALL the effort. Patient does none of the effort to complete the activity. Or, the assistance of 2 or more helpers is required for the patient to complete the activity. If activity was not attempted, code reason: 7-Patient Refused. 9-Not Applicable-not attempted and the patient did not perform the activity before the current illness, exacerbation or injury. 10-Not Attempted due to Environmental Limitations-(lack of equipment, weather restraints, etc.). 88-Not Attempted due to Medical Conditions or Safety Concerns. Roll Left & Right (QC): 6 Sit to Lying (QC): 6 Lying to Sitting/Side of Bed(Q: 6 Sit to Stand (QC): 6 Chair/Arx-gg-Ppktw Xfer(QC): 6 Toilet Transfer (QC): 6 Car Transfer (QC): 6 Weight Bearing Full Weight Bearing Full Weight Bearing Gait Training Does the Patient Walk?: Yes Walk 10 feet (QC): 6 Walk 50 ft with 2 Turns(QC): 6 Walk 150 ft (QC): 6 Walking 10ft/uneven surface-QC: 6 Gait Persons Needed: 0 Gait Assistive Device: FWW slow, careful, standing rest breaks and sitting rest breaks needed at times, no LOB Stair Training Stair Training: Handrails/: 2 handrails #of Steps: 4 1 Step (curb) (QC): 4 4 Steps (QC): 4 12 Steps (QC): 88 Stairs: Pattern: Step to Exercises Seated Therapy Exercises: Ankle pumps, Sit to stand, Long arc quads, Hip flexion, Hip abd/add Seated Reps: 15 NuStep Minutes: 10 NuStep Workload: 4 Assessment Current Status: Good Progress meets goals PT Short Term Goals Short Term Goals Time Frame: Mar 15, 2020 Roll Left & Right: 6 Sit to lyin Lying to sitting on side of be: 4 Sit to stand: 4 Chair/pdb-hs-mtvwc transfer: 4 Walk 10 feet: 4 Walk 50 feet with two turns: 4 Walk 150 feet: 4 PT Long-Term Goals Therapeutic Support Staff Goals PT Therapeutic Support Staff Goals Time Frame: Mar 29, 2020 Roll Left & Right (QC): 6 Sit to Lying (QC): 6 Lying-Sitting on Side/Bed(QC): 6 Sit to Stand (QC): 6 Chair/Flm-xo-Dhbdg Xfer(QC): 6 Toilet Transfer (QC): 6 Car Transfer (QC): 6 Does the Patient Walk: Yes Walk 10 feet (QC): 6 Walk 50ft with 2 Turns (QC): 6 Walk 150 ft (QC): 6 Walking 10ft on Uneven Surface: 6 1 Step (curb) (QC): 4 4 Steps (QC): 4 12 Steps (QC): 88 Picking up an Object (QC): 4 Wheel 50 feet with 2 turns (QC: 9 Wheel 150 feet: 9 PT Plan Treatment/Plan Treatment Plan: Continue Plan of Care Treatment Plan: Bed Mobility, Education, Functional Activity Ruthie, Functional Strength, Group Therapy, Gait, Safety, Therapeutic Exercise, Transfers Treatment Duration: Mar 29, 2020 Frequency: At least 5 of 7 days/Wk (IRF) Estimated Hrs Per Day: 1.5 hours per day Patient and/or Family Agrees t: Yes Safety Risks/Education Patient Education: Gait Training, Transfer Techniques, Steps, Correct Positioning, Disease Process, Safety Issues Teaching Recipient: Patient Teaching Methods: Demonstration, Discussion Response to Teaching: Verbalize Understanding, Return Demonstration, Reinforcement Needed Time/GCodes Time In: 1100 Time Out: 1200 Total Billed Treatment Time: 60 Total Billed Treatment 1,EX30m,GT10m,FA20m LUEBBER, SEYMOUR A [employer] OPERATOR Mar 15, 2020 11:58
--- NOTE | 2020-03-15 13:46 | NUR ---
CM/SS DISCHARGE PLANNING Patient is eligible for discharge tomorrow, March 16, due to her high level of performance. Patient confirms she will be going to her daughter's in [place]. Since the target discharge was March 17, she has asked daughter Musa to confirm this change of plan is acceptable. Musa's spouse may have to be gone all day Sunday which would leave patient home alone. Await response.
--- NOTE | 2020-03-15 13:54 | Physical Therapy Daily Note ---
PT Daily Note-Current Subjective Patient in recliner pre tx agrees to PT, has no complaints of pain. Appearance Patient in recliner post tx with nurse call, phone, tray, all needs met. Mental Status Patient Orientation: Normal For Age Transfers SCALE: Activities may be completed with or without assistive devices. 2-Ecedmuddii-byjdllo completes the activity by him/herself with no assistance from a helper. 5-Set-up or Clean-up Assistance-helper sets up or cleans up; patient completes activity. [place] assists only prior to or following the activity. 4-Supervision or Touching Assistance-helper provides verbal cues and/or touching/steadying and/or contact guard assistance as patient completes activity. Assistance may be provided throughout the activity or intermittently. 3-Partial/Moderate Assistance-helper does LESS THAN HALF the effort. [place] lifts, holds or supports trunk or limbs, but provides less than half the effort. 2-Substantial/Maximal Assistance-helper does MORE THAN HALF the effort. [place] lifts or holds trunk or limbs and provides more than half the effort. 8-Mfzoruedp-givvyq does ALL the effort. Patient does none of the effort to complete the activity. Or, the assistance of 2 or more helpers is required for the patient to complete the activity. If activity was not attempted, code reason: 7-Patient Refused. 9-Not Applicable-not attempted and the patient did not perform the activity before the current illness, exacerbation or injury. 10-Not Attempted due to Environmental Limitations-(lack of equipment, weather restraints, etc.). 88-Not Attempted due to Medical Conditions or Safety Concerns. Sit to Stand (QC): 6 Chair/Jsx-vt-Ametj Xfer(QC): 6 Weight Bearing Full Weight Bearing Full Weight Bearing Gait Training Distance: 150'x2 Walk 10 feet (QC): 6 Walk 50 ft with 2 Turns(QC): 6 Walk 150 ft (QC): 6 Gait Assistive Device: FWW Exercises NuStep Minutes: 15 NuStep Workload: 5 Treatments LE exercise, ambulation and transfers Assessment Current Status: Fair Progress independent with mobility using a rolling walker PT Short Term Goals Short Term Goals Time Frame: Mar 15, 2020 Roll Left & Right: 6 Sit to lyin Lying to sitting on side of be: 4 Sit to stand: 4 Chair/egl-la-lavpq transfer: 4 Walk 10 feet: 4 Walk 50 feet with two turns: 4 Walk 150 feet: 4 PT Longterm Goals Longterm Goals PT Longterm Goals Time Frame: Mar 29, 2020 Roll Left & Right (QC): 6 Sit to Lying (QC): 6 Lying-Sitting on Side/Bed(QC): 6 Sit to Stand (QC): 6 Chair/Rjr-ft-Lodpr Xfer(QC): 6 Toilet Transfer (QC): 6 Car Transfer (QC): 6 Does the Patient Walk: Yes Walk 10 feet (QC): 6 Walk 50ft with 2 Turns (QC): 6 Walk 150 ft (QC): 6 Walking 10ft on Uneven Surface: 6 1 Step (curb) (QC): 4 4 Steps (QC): 4 12 Steps (QC): 88 Picking up an Object (QC): 4 Wheel 50 feet with 2 turns (QC: 9 Wheel 150 feet: 9 PT Plan Problem List Problem List: Activity Tolerance, Functional Strength, Safety, Balance, Gait, Transfer Treatment/Plan Treatment Plan: Continue Plan of Care Treatment Plan: Bed Mobility, Education, Functional Activity Ruthie, Functional Strength, Group Therapy, Gait, Safety, Therapeutic Exercise, Transfers Treatment Duration: Mar 29, 2020 Frequency: At least 5 of 7 days/Wk (IRF) Estimated Hrs Per Day: 1.5 hours per day Patient and/or Family Agrees t: Yes Safety Risks/Education Patient Education: Gait Training, Transfer Techniques, Correct Positioning, Safety Issues Teaching Recipient: Patient Teaching Methods: Demonstration, Discussion Response to Teaching: Reinforcement Needed Time/GCodes Time In: 1315 Time Out: 1345 Total Billed Treatment Time: 30 Total Billed Treatment 1 visit EX 15' GT 15' MOSES SPAULDING PT Mar 15, 2020 13:54
[2020-03-15 17:10] VITALS: BP 152/86
[2020-03-15] MEDS: SERTRALINE 50 MG (ZOLOFT) TABLET PO SCH (20:36)
[2020-03-15] MEDS: ENOXAPARIN 40 MG/0.4 ML (LOVENOX) SYR SC SCH (20:38)
--- NOTE | 2020-03-15 21:00 | NUR ---
STATES FEELS READY FOR DISCHARGE TOMORROW. STATES DAUGHTER DEJUAN WON'T BE ABLE TO PICK HER UP UNTIL SHE GETS OFF WORK AND WILL BE HERE AT 1700. FEELS P[facility]UM MAY BE HELPING A LITTLE, BUT STILL HAVING BLADDER SPASMS AND DRIBBLING "ALL THE WAY TO THE BATHROOM".
[2020-03-16 06:07] VITALS: BP 130/76
[2020-03-16] MEDS: inSUlin (REGULAR) HUMAN 1 UNIT/0.01 ML (CHARGE PER UNIT) SC SCH ×2 (06:36→12:05)
[2020-03-16] MEDS: ASPIRIN E.C. 81 MG (ECOTRIN) TAB PO SCH (08:19)
[2020-03-16] MEDS: inSUlin NPH (NovoLIN N) 1 UNIT/0.01 ML (CHARGE PER UNIT) SQ SCH (08:19)
[2020-03-16] MEDS: PHENAZOPYRIDINE 100 MG (PYRIDIUM) TABLET PO SCH ×2 (08:19→12:04)
[2020-03-16] MEDS: ALLOPURINOL 300 MG (ZYLOPRIM) TAB PO SCH (08:19)
[2020-03-16] MEDS: polyethylene glycoL POWDER 17 GM (MIRALAX) PACK PO SCH (08:19)
[2020-03-16] MEDS: ATENOLOL 25 MG (TENORMIN) TAB PO SCH (08:19)
[2020-03-16] MEDS: RANOLAZINE ER 500 MG TAB (RANEXA) PO SCH (08:19)
[2020-03-16] MEDS: MAGNESIUM OXIDE (MAG-OX)400 MG TAB PO SCH (08:19)
--- NOTE | 2020-03-16 08:19 | Occupational Ther Daily Note ---
OT Current Status-Daily Note Subjective Pt AxO this am. States going home this afternoon. Per DO, pt is likely going home, so OT is indicated due to potential of staying overnight. Pt agrees to this, states she is pain free. Mental Status/Objective Patient Orientation: Person, Place, Situation, Normal For Age ADL-Treatment Therapy Code Descriptions/Definitions Functional [place] Measure: 0=Not Assessed/NA 4=Minimal Assistance 1=Total Assistance 5=Supervision or Setup 2=Maximal Assistance 6=Modified [place] 3=Moderate Assistance 7=Complete IndependenceSCALE: Activities may be completed with or without assistive devices. 0-Uttnoboeaw-jhkcqex completes the activity by him/herself with no assistance fr om a helper. 5-Set-up or Clean-up Assistance-helper sets up or cleans up; patient completes activity. [place] assists only prior to or following the activity. 4-Supervision or Touching Assistance-helper provides verbal cues and/or touching/steadying and/or contact guard assistance as patient completes activity. Assistance may be provided throughout the activity or intermittently. 3-Partial/Moderate Assistance-helper does LESS THAN HALF the effort. [place] lifts, holds or supports trunk or limbs, but provides less than half the effort. 2-Substantial/Maximal Assistance-helper does MORE THAN HALF the effort. [place] lifts or holds trunk or limbs and provides more than half the effort. 9-Lrmrurlce-mlsdln does ALL the effort. Patient does none of the effort to complete the activity. Or, the assistance of 2 or more helpers is required for the patient to complete the activity. If activity was not attempted, code reason: 7-Patient Refused. 9-Not Applicable-not attempted and the patient did not perform the activity before the current illness, exacerbation or injury. 10-Not Attempted due to Environmental Limitations-(lack of equipment, weather restraints, etc.). 88-Not Attempted due to Medical Conditions or Safety Concerns. Eating (QC): 6 Oral Hygiene (QC): 5 (chair s/u behind pt prior to oral care due to fatigue during stance. ) Shower/Bathe Self (QC): 7 (denies as just completed yesterday) Upper Body Dressing (QC): 6 (gathers and dons IND.) Lower Body Dressing (QC): 5 (s/u prior to donning. Dons IND. ) On/Off Footwear: 6 (IND ) Toileting Hygiene (QC): 6 (IND) Toilet Transfer (QC): 6 (IND, use of walker. ) Other Treatment Pt completes ADL tasks in room as outlined. Pt toilets with IND, completes oral care while seated in chair. Pt agrees to gather items up in room, working on dynamic reaching/ bending/ balance tasks. Pt requires SBA-SUP for these tasks. Pt states she is confident in abilities to complete HEP at home. Denies any difficulties that need to be further addressed. Pt completes ambulation with walker task through hallway with pt initiation of breaks, SBA all time. Pt returns to room, all needs met, call light in reach. Education OT Patient Education: Energy conservation, Progress toward Goal/Update tx plan, Purpose of tx/functional activities, Rehab process, Safety issues Teaching Recipient: Patient Teaching Methods: Demonstration, Discussion Response to Teaching: Verbalize Understanding, Return Demonstration OT Short Term Goals Short Term Goals Time Frame: Mar 15, 2020 Eatin Oral hygiene: 4 Toileting hygiene: 4 Shower/bathe self: 3 Upper body dressin Lower body dressin Putting on/taking off footwear: 4 OT Senior Clinical Data Analyst Goals Senior Clinical Data Analyst Goals Time Frame: Mar 22, 2020 Eating (QC): 6 (met) Oral Hygiene (QC): 6 Toileting Hygiene (QC): 6 (met) Shower/Bathe Self (QC): 4 (met) Upper Body Dressing (QC): 5 (met) Lower Body Dressing (QC): 5 (met) On/Off Footwear (QC): 5 (met) Additional Goals: 1-Demonstrate ADL Tasks, 2-Verbalize Understanding, 3- ImproveStrength/Ruthie 1=Demonstrate adherence to instructed precautions during ADL tasks. 2=Patient will verbalize/demonstrate understanding of assistive devices/modifications for ADL. 3=Patient will improve strength/tolerance for activity to enable patient to perform ADL's. OT Education/Plan Problem List/Assessment Assessment: Decreased Activ Tolerance, Decreased UE Strength, Impaired Funct Balance, Impaired I ADL's, Impaired Self-Care Skills Discharge Recommendations Plan/Recommendations: Continue POC Therapy Discharge Recommendati: Intermittent Supervision, Home & Family Treatment Plan/Plan of Care Treatment,Training & Education: Yes Patient would benefit from OT for education, treatment and training to promote independence in ADL's, mobility, safety and/or upper extremity function for ADL's. Plan of Care: ADL Retraining, Functional Mobility, UE Funct Exercise/Act Treatment Duration: Mar 22, 2020 Frequency: At least 5 of 7 days/Wk (IRF) Estimated Hrs Per Day: 1.5 hours per day Agreement: Yes Rehab Potential: Good Time/GCodes Start Time: 08:00 Stop Time: 09:00 Total Time Billed (hr/min): 60 Billed Treatment Time 1, ADL 2 (30), FA (15), EX (15)= 60 FELIX CADENA OTR Mar 16, 2020 08:19
[2020-03-16] MEDS: SENNA W/DOCUSATE (SENOKOT S) TABLET PO SCH (08:20)
[2020-03-16] MEDS: DOCUSATE SODIUM 100 MG (COLACE) CAP PO SCH (08:20)
[2020-03-16] MEDS: CLOPIDOGREL 75 MG (PLAVIX) TABLET PO SCH (08:20)
[2020-03-16] MEDS: MECLIZINE 25 MG (ANTIVERT) TAB PO PRN (08:24)
--- NOTE | 2020-03-16 08:33 | Discharge Summary ---
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 at [facility] 2014 HTN HLP CRI Insomnia GERD Gastroparesis OP Neuropathy Hypoglycemia Plan: IRF protocol Home meds Accuchecks SSI Monitor closely 03/09/20: Monitor ambulation Increase use of AD Decrease insulin due to hypoglycemia 03/10/20: Hypoglycemia continues Decreasing more insulin Very brittle DM 03/11/20: Monitor dizziness Decrease insulin 03/12/20: Evaluate urine Pyridium 03/13/20: Pyridium after in/out cath Monitor sugars 03/14/20: Monitor closely Pyridium 03/15/20: UA normal Monitor sugars Discharge Summary Discharge Physical Examination Allergies: Coded Allergies: celecoxib (Unverified Allergy, Unknown, 03/08/15) cinacalcet (Verified Allergy, Unknown, 03/07/20) clarithromycin (Verified Allergy, Unknown, 03/07/20) codeine (Verified Allergy, Unknown, 03/07/20) hydrocodone (Verified Allergy, Unknown, 03/07/20) levofloxacin (Verified Allergy, Unknown, 03/08/15) isosorbide (Verified Adverse Reaction, Unknown, severe hypotension, 03/08/15) Vitals & I&Os Vital Signs Date Time Temp Pulse Resp B/P (MAP) Pulse Ox O2 Delivery O2 Flow Rate FiO2 03/16/20 16:30 36.8 70 16 158/82 95 Room Air General Appearance: Alert, Oriented X3, Cooperative Respiratory: Clear to Auscultation Cardiovascular: Regular Rate Neuro: Normal Gait, Normal Speech, Strength at 5/5 X4 Ext Hospital Course Was the Problem List Reviewed?: Yes Hospital Course: Pt had an uneventful hospital course for 8 days after she was admitted for new right sided weakness and history of left sided weakness from CVA August of 2018. She was monitored closely. Insulin was decreased due to low sugars. Pt overall was able to participate in all therapies and gain strength and was able to be discharged in improved condition, she felt confident and able to return back to her regular activities of daily living and she will go to live with her daughter. Labs (last 24 hrs) Laboratory Tests 03/09/20 04:02: White Blood Count 13.7H, Red Blood Count 3.95, Hemoglobin 13.0, Hematocrit 38, Mean Corpuscular Volume 97, Mean Corpuscular Hemoglobin 33, Mean Corpuscular Hemoglobin Concent 34, Red Cell Distribution Width 13.5, Platelet Count 192, Mean Platelet Volume 11.6, Immature Granulocyte % (Auto) 1, Neutrophils (%) (Auto) 42, Lymphocytes (%) (Auto) 48H, Monocytes (%) (Auto) 8, Eosinophils (%) (Auto) 1, Basophils (%) (Auto) 0, Neutrophils # (Auto) 5.8, Lymphocytes # (Auto) 6.5H, Monocytes # (Auto) 1.1H, Eosinophils # (Auto) 0.1, Basophils # (Auto) 0.1, Immature Granulocyte # (Auto) 0.1, Sodium Level 141, Potassium Level 4.1, Chloride Level 108H, Carbon Dioxide Level 22, Anion Gap 11, Blood Urea Nitrogen 25H, Creatinine 1.54H, Estimat Glomerular Filtration Rate 34, BUN/Creatinine Ratio 16, Glucose Level 66L, Calcium Level 10.2H, Corrected Calcium 10.3H, Total Bilirubin 0.5, Aspartate Amino Transf (AST/SGOT) 23, Alanine Aminotransferase (ALT/SGPT) 19, Alkaline Phosphatase 73, Total Protein 6.8, Albumin 3.9 03/09/20 20:06: Glucometer 116H 03/10/20 05:37: Glucometer 103 03/10/20 10:53: Glucometer 137H 03/13/20 16:40: Urine Color YELLOW, Urine Clarity CLEAR, Urine pH 6.5, Urine Specific [place] 1.015L, Urine Protein 1+H, Urine Glucose (UA) 1+H, Urine Ketones NEGATIVE, Urine Nitrite NEGATIVE, Urine Bilirubin NEGATIVE, Urine Urobilinogen 0.2, Urine Leukocyte Esterase NEGATIVE, Urine RBC (Auto) NEGATIVE, Urine RBC NONE, Urine WBC 0-2, Urine Squamous Epithelial Cells 0-2, Urine Crystals NONE, Urine Bacteria FEWH, Urine Casts NONE, Urine Mucus NEGATIVE, Urine Culture Indicated NO 03/15/20 04:40: White Blood Count 6.2, Red Blood Count 3.64L, Hemoglobin 11.8, Hematocrit 37, Mean Corpuscular Volume 100H, Mean Corpuscular Hemoglobin 32, Mean Corpuscular Hemoglobin Concent 32, Red Cell Distribution Width 13.5, Platelet Count 122L, Mean Platelet Volume 12.4H, Immature Granulocyte % (Auto) 1, Neutrophils (%) (Auto) 60, Lymphocytes (%) (Auto) 29, Monocytes (%) (Auto) 9, Eosinophils (%) (Auto) 1, Basophils (%) (Auto) 0, Neutrophils # (Auto) 3.7, Lymphocytes # (Auto) 1.8, Monocytes # (Auto) 0.6, Eosinophils # (Auto) 0.1, Basophils # (Auto) 0.0, Immature Granulocyte # (Auto) 0.0, Sodium Level 137, Potassium Level 5.4H, Chloride Level 104, Carbon Dioxide Level 23, Anion Gap 10, Blood Urea Nitrogen 35H, Creatinine 1.97H, Estimat Glomerular Filtration Rate 26, BUN/Creatinine Ratio 18, Glucose Level 349H, Calcium Level 10.3H, Corrected Calcium 10.7H, Total Bilirubin 0.4, Aspartate Amino Transf (AST/SGOT) 21, Alanine Aminot ransferase (ALT/SGPT) 24, Alkaline Phosphatase 75, Total Protein 6.2L, Albumin 3.5 Pending Labs Laboratory Tests 03/09/20 04:02: White Blood Count 13.7, Red Blood Count 3.95, Hemoglobin 13.0, Hematocrit 38, Mean Corpuscular Volume 97, Mean Corpuscular Hemoglobin 33, Mean Corpuscular Hemoglobin Concent 34, Red Cell Distribution Width 13.5, Platelet Count 192, Mean Platelet Volume 11.6, Immature Granulocyte % (Auto) 1, Neutrophils (%) (Auto) 42, Lymphocytes (%) (Auto) 48, Monocytes (%) (Auto) 8, Eosinophils (%) (Auto) 1, Basophils (%) (Auto) 0, Neutrophils # (Auto) 5.8, Lymphocytes # (Auto) 6.5, Monocytes # (Auto) 1.1, Eosinophils # (Auto) 0.1, Basophils # (Auto) 0.1, Immature Granulocyte # (Auto) 0.1, Sodium Level 141, Potassium Level 4.1, Chloride Level 108, Carbon Dioxide Level 22, Anion Gap 11, Blood Urea Nitrogen 25, Creatinine 1.54, Estimat Glomerular Filtration Rate 34, BUN/Creatinine Ratio 16, Glucose Level 66, Calcium Level 10.2, Corrected Calcium 10.3, Total Bilirubin 0.5, Aspartate Amino Transf (AST/SGOT) 23, Alanine Aminotransferase (ALT/SGPT) 19, Alkaline Phosphatase 73, Total Protein 6.8, Albumin 3.9 03/09/20 20:06: Glucometer 116 03/10/20 05:37: Glucometer 103 03/10/20 10:53: Glucometer 137 03/13/20 16:40: Urine Color YELLOW, Urine Clarity CLEAR, Urine pH 6.5, Urine Specific [place] 1.015, Urine Protein 1+, Urine Glucose (UA) 1+, Urine Ketones NEGATIVE, Urine N itrite NEGATIVE, Urine Bilirubin NEGATIVE, Urine Urobilinogen 0.2, Urine Leukocyte Esterase NEGATIVE, Urine RBC (Auto) NEGATIVE, Urine RBC NONE, Urine WBC 0-2, Urine Squamous Epithelial Cells 0-2, Urine Crystals NONE, Urine Bacteria FEW, Urine Casts NONE, Urine Mucus NEGATIVE, Urine Culture Indicated NO 03/15/20 04:40: White Blood Count 6.2, Red Blood Count 3.64, Hemoglobin 11.8, Hematocrit 37, Mean Corpuscular Volume 100, Mean Corpuscular Hemoglobin 32, Mean Corpuscular Hemoglobin Concent 32, Red Cell Distribution Width 13.5, Platelet Count 122, Mean Platelet Volume 12.4, Immature Granulocyte % (Auto) 1, Neutrophils (%) (Auto) 60, Lymphocytes (%) (Auto) 29, Monocytes (%) (Auto) 9, Eosinophils (%) (Auto) 1, Basophils (%) (Auto) 0, Neutrophils # (Auto) 3.7, Lymphocytes # (Auto) 1.8, Monocytes # (Auto) 0.6, Eosinophils # (Auto) 0.1, Basophils # (Auto) 0.0, Immature Granulocyte # (Auto) 0.0, Sodium Level 137, Potassium Level 5.4, Chloride Level 104, Carbon Dioxide Level 23, Anion Gap 10, Blood Urea Nitrogen 35, Creatinine 1.97, Estimat Glomerular Filtration Rate 26, BUN/Creatinine Ratio 18, Glucose Level 349, Calcium Level 10.3, Corrected Calcium 10.7, Total Bilirubin 0.4, Aspartate Amino Transf (AST/SGOT) 21, Alanine Aminotransferase (ALT/SGPT) 24, Alkaline Phosphatase 75, Total Protein 6.2, Albumin 3.5 Discharge Home Medications: Active Scripts Active Nitroglycerin 0.4 Mg Tab.subl 0.4 Mg SL UD PRN 30 Days Reported Allopurinol 300 Mg Tablet 300 Mg PO MON,SUN Magnesium (Magnesium Oxide) 400 Mg Tablet 400 Mg PO DAILY Meclizine HCl 25 Mg Tablet 25-50 Mg PO DAILY PRN Metoclopramide HCl 10 Mg Tablet 10 Mg PO BID PRN Sertraline HCl 25 Mg Tablet 25 Mg PO HS Oxybutynin Chloride ER (Oxybutynin Chloride) 5 Mg Tab.er.24 5 Mg PO DAILY PRN Novolin N (Insulin NPH Human Isophane) 100 Unit/1 Ml Vial 83 Unit SQ HS Novolin N (Insulin NPH Human Isophane) 100 Unit/1 Ml Vial 66 Units SC DAILY Ranexa (Ranolazine) 1,000 Mg Tab.er.12h 1,000 Mg PO BID Losartan Potassium 50 Mg Tablet 50 Mg PO DAILY PRN Atenolol 25 Mg Tablet 25 Mg PO DAILY Novolin R (Insulin Regular, Human) 100 Unit/1 Ml Vial 10-20 Unit SC TIDAC Aspirin EC (Aspirin) 81 Mg Tablet.dr 81 Mg PO DAILY Clopidogrel (Clopidogrel Bisulfate) 75 Mg Tablet 75 Mg PO DAILY Furosemide 20 Mg Tablet 20 Mg PO MOFR LAST FILLED 08-20-2019 # DAY SUPPLY Instructions to patient/family Please see electronic discharge instructions given to patient. Diagnosis/Problems Diagnosis/Problems (1) Weakness Status: Acute (2) CVA (cerebral vascular accident) (3) TIA (transient ischemic attack) Status: Acute (4) Hyperglycemia due to diabetes mellitus Status: Acute (5) Insomnia (6) Left hemiparesis (7) Gastroparesis (8) Hypertension Status: Acute (9) GERD (gastroesophageal reflux disease) (10) Renal insufficiency (11) Neuropathy (12) Hyperlipemia (13) Osteoporosis (14) CAD (coronary artery disease) (15) Diabetes mellitus (16) Constipation (17) Dizziness Status: Acute Clinical Quality Measures DVT/VTE Risk/Contraindication: Risk Factor Score Per Nursin RFS Level Per Nursing on Admit: 3=High JAG KIRKLAND DO Mar 16, 2020 08:33
[2020-03-16] MEDS: NYSTATIN CREAM (MYCOSTATIN) 30 GM TUBE TP SCH ×2 (08:48→14:20)
--- NOTE | 2020-03-16 09:57 | Physical Therapy Daily Note ---
PT Daily Note-Current Subjective Pt. excited to DC, feels confident to be up ad lisbeth remainder of time here. Pain Location: No Pain Reported Mental Status Patient Orientation: Normal For Age Transfers SCALE: Activities may be completed with or without assistive devices. 9-Yxpeutnqkb-nsszpjz completes the activity by him/herself with no assistance from a helper. 5-Set-up or Clean-up Assistance-helper sets up or cleans up; patient completes activity. [place] assists only prior to or following the activity. 4-Supervision or Touching Assistance-helper provides verbal cues and/or touching/steadying and/or contact guard assistance as patient completes activity. Assistance may be provided throughout the activity or intermittently. 3-Partial/Moderate Assistance-helper does LESS THAN HALF the effort. [place] lifts, holds or supports trunk or limbs, but provides less than half the effort. 2-Substantial/Maximal Assistance-helper does MORE THAN HALF the effort. [place] lifts or holds trunk or limbs and provides more than half the effort. 7-Vstwfqvlo-idlkbh does ALL the effort. Patient does none of the effort to compl ete the activity. Or, the assistance of 2 or more helpers is required for the patient to complete the activity. If activity was not attempted, code reason: 7-Patient Refused. 9-Not Applicable-not attempted and the patient did not perform the activity before the current illness, exacerbation or injury. 10-Not Attempted due to Environmental Limitations-(lack of equipment, weather restraints, etc.). 88-Not Attempted due to Medical Conditions or Safety Concerns. all TRFs indep Weight Bearing Full Weight Bearing Full Weight Bearing Gait Training Gait Assistive Device: [id number] MOD I FWW Exercises NuStep Minutes: 10 NuStep Workload: 4 Assessment Current Status: Good Progress meets goals PT Short Term Goals Short Term Goals Time Frame: Mar 15, 2020 Roll Left & Right: 6 Sit to lyin Lying to sitting on side of be: 4 Sit to stand: 4 Chair/rxn-vn-jcxdf transfer: 4 Walk 10 feet: 4 Walk 50 feet with two turns: 4 Walk 150 feet: 4 PT Snf Goals Snf Goals PT Snf Goals Time Frame: Mar 29, 2020 Roll Left & Right (QC): 6 Sit to Lying (QC): 6 Lying-Sitting on Side/Bed(QC): 6 Sit to Stand (QC): 6 Chair/Aue-lp-Qnfmi Xfer(QC): 6 Toilet Transfer (QC): 6 Car Transfer (QC): 6 Does the Patient Walk: Yes Walk 10 feet (QC): 6 Walk 50ft with 2 Turns (QC): 6 Walk 150 ft (QC): 6 Walking 10ft on Uneven Surface: 6 1 Step (curb) (QC): 4 4 Steps (QC): 4 12 Steps (QC): 88 Picking up an Object (QC): 4 Wheel 50 feet with 2 turns (QC: 9 Wheel 150 feet: 9 PT Plan Treatment/Plan Treatment Plan: Discontinue PT, goals met Treatment Plan: Bed Mobility, Education, Functional Activity Ruthie, Functional Strength, Group Therapy, Gait, Safety, Therapeutic Exercise, Transfers Treatment Duration: Mar 29, 2020 Frequency: At least 5 of 7 days/Wk (IRF) Estimated Hrs Per Day: 1.5 hours per day Patient and/or Family Agrees t: Yes Safety Risks/Education Patient Education: Gait Training, Transfer Techniques Time/GCodes Time In: 915 Time Out: 940 Total Billed Treatment Time: 25 Total Billed Treatment 1,GT15,EX10 SEYMOUR P[employer] W[employer]ING INSPECTOR AND TESTER Mar 16, 2020 09:57
--- NOTE | 2020-03-16 10:00 | NUR ---
CM/SS DISCHARGE patient discharged today as planned. She has coordinated transportation by her daughter Musa for 1700. Patient indicates Musa will take her to daughter Mary Ann's house to get her things and all required assistive devices before returning to [place]. Therapy team indicated patient did not need home health or outpatient therapies, that she was back to her baseline. IMM2 presented, discussed, signed, charted. Patient discharge was well planned in coordination with her, no intention to appeal. Unit RN updated fully of timeline, patient possessions packed for departure.
[2020-03-16 15:45] VITALS: BP 164/83
[2020-03-16 16:30] VITALS: BP 158/82
--- NOTE | 2020-03-16 16:30 | NUR ---
CARMELA CARVALHO demonstrates understanding of discharge instructions and accurately returns instructions upon questioning. Copy of Post-Discharge Instructions given to PT. CARMELA CARVALHO is able to manage continuing needs after discharge. Patients belongings returned to PT. Patient discharged from 227-1 on 03/16/20 at 1630. CARMELA CARVALHO left floor via W/C, accompanied by STAFF AND DAUGHTER PER AUTO.
== END 2020-03-16 16:30 | disposition home or self-care (01) | DRG 57 ==
PROVIDERS: ADMIT Internal Medicine; ATTEND Internal Medicine
DX: I69.351 Hemiplegia and hemiparesis following cerebral infarction affecting right dominant side (principal); I69.354 Hemiplegia and hemiparesis following cerebral infarction affecting left non-dominant side; I42.9 Cardiomyopathy, unspecified; I69.392 Facial weakness following cerebral infarction; E11.65 Type 2 diabetes mellitus with hyperglycemia; E11.649 Type 2 diabetes mellitus with hypoglycemia without coma; E11.40 Type 2 diabetes mellitus with diabetic neuropathy, unspecified; E11.43 Type 2 diabetes mellitus with diabetic autonomic (poly)neuropathy; K31.84 Gastroparesis; I25.10 Atherosclerotic heart disease of native coronary artery without angina pectoris; I12.9 Hypertensive chronic kidney disease with stage 1 through stage 4 chronic kidney disease, or unspecified chronic kidney disease; E11.22 Type 2 diabetes mellitus with diabetic chronic kidney disease; N18.9 Chronic kidney disease, unspecified; G47.30 Sleep apnea, unspecified; E78.00 Pure hypercholesterolemia, unspecified; E78.5 Hyperlipidemia, unspecified; K21.9 Gastro-esophageal reflux disease without esophagitis; M19.91 Primary osteoarthritis, unspecified site; R42 Dizziness and giddiness; G47.00 Insomnia, unspecified; M81.0 Age-related osteoporosis without current pathological fracture; Z79.4 Long term (current) use of insulin; Z79.82 Long term (current) use of aspirin; Z88.6 Allergy status to analgesic agent; Z88.1 Allergy status to other antibiotic agents; Z82.49 Family history of ischemic heart disease and other diseases of the circulatory system; Z82.61 Family history of arthritis; Z83.3 Family history of diabetes mellitus; Z84.89 Family history of other specified conditions
CPT/HCPCS: 36415; 80053; 81000; 82962; 85025

== ENCOUNTER 2020-09-13 11:58 | Inpatient (IN) | payer MEDICARE ==
[~2020-09-13] VITALS: Ht 170.2 cm; Wt 113.9 kg
[~2020-09-13 11:58] MED LIST changes: +ALLO100T PO; +HUM100VI15 SC; +LOSA100T57 PO; +MAGN400T39 PO; -METO10TA3 PO; +MTC10T PO; +OXYB-52 PO; +SERT-412 PO
[2020-09-13 12:30] VITALS: BP 124/71
[2020-09-13] MEDS ORDERED: ACETAMINOPHEN 325 MG TABLET PO PRN ×2 (12:30→17:00)
[2020-09-13] MEDS ORDERED: ONDANSETRON 4 MG (ZOFRAN) ORAL DISSOLVE TAB PO PRN (12:30)
[2020-09-13] MEDS ORDERED: LOPERAMIDE 2 MG (IMODIUM) TABLET PO PRN (12:30)
[2020-09-13] MEDS ORDERED: diphenhydrAMINE 25 MG TAB (BENADRYL) PO PRN (12:30)
[2020-09-13] MEDS ORDERED: CALCIUM CARBONATE 500 MG (TUMS) TAB.CHEW PO PRN (12:30)
[2020-09-13] MEDS ORDERED: ALPRAZolam 0.25 MG (XANAX) TAB PO PRN (12:30)
[2020-09-13] MEDS ORDERED: LACTULOSE SYRUP 10GM/15ML (ENULOSE) 30ML UDC PO PRN (12:30)
[2020-09-13] MEDS ORDERED: DOCUSATE SODIUM 100 MG (COLACE) CAP PO PRN (12:30)
--- NOTE | 2020-09-13 13:02 | Occupational Therapy Eval ---
OT Evaluation-General/PLF Medical Diagnosis Admission Date 09/13/2020 Medical Diagnosis: L hip fx Onset Date: Sep 09, 2020 Therapy Diagnosis Therapy Diagnosis: decreased ADL status, weakness Height/Weight Height (Feet): 5 Height (Inches): 6.00 Weight (Pounds): 220 Weight (Ounces): 10.0 Weight Bear Status Weight Bearing Restriction: Weight Bearing/Tolerated Location Restriction: L LE Referral Physician: Kp Referral Reason: Evaluation/Treatment Medical History Pertinent Medical History: Arthritis, CAD, CVA, DM, HTN, [place], Neuropathy Additional Medical History sleep apnea (CPAP), cardiomyopathy, vertigo, kidney stones, renal failure, GERD, chronic constipation Current History 09/09/20 Pt fell at [facility], recently became a resident at the [facility] (~2 weeks). She was using her walker in the bathroom, turned a corner and slipped, striking the L side of her forehead and landing on L hip. 09/10/20 pt had operation of percutaneous screw fixation of L femoral neck. 09/13/20 transfer to ARU for continued medication management and skilled therapy. Social History Home: Assisted Living ([facility]) Entry Into Home: Level Entry ADL-Prior Level of Function SCALE: Activities may be completed with or without assistive devices. 3-Trrqvvfqne-ziwhgvc completes the activity by him/herself with no assistance from a helper. 5-Set-up or Clean-up Assistance-helper sets up or cleans up; patient completes activity. Gilman assists only prior to or following the activity. 4-Supervision or Touching Assistance-helper provides verbal cues and/or touching/steadying and/or contact guard assistance as patient completes activity. Assistance may be provided throughout the activity or intermittently. 3-Partial/Moderate Assistance-helper does LESS THAN HALF the effort. Gilman lifts, holds or supports trunk or limbs, but provides less than half the effort. 2-Substantial/Maximal Assistance-helper does MORE THAN HALF the effort. Gilman lifts or holds trunk or limbs and provides more than half the effort. 4-Bjbgdrdhp-hchnsp does ALL the effort. Patient does none of the effort to complete the activity. Or, the assistance of 2 or more helpers is required for the patient to complete the activity. If activity was not attempted, code reason: 7-Patient Refused. 9-Not Applicable-not attempted and the patient did not perform the activity before the current illness, exacerbation or injury. 10-Not Attempted due to Environmental Limitations-(lack of equipment, weather restraints, etc.). 88-Not Attempted due to Medical Conditions or Safety Concerns. ADL PLOF Comments Pt resides at [facility] at [facility]. She has someone present when she showers, but indicates able to toilet and dress herself. Self Care: Needed Some Help Functional Cognition: Independent DME/Equipment Comments walker OT Current Status Subjective Pt reports pain 9/10 in L hip during AM tx, 4/10 pain in L hip after lunch. Mental Status/Objective Patient Orientation: Person, Confused (slight confusion noted, increased time to process some information), Place, Time, Situation Attachments: Leiva Catheter Current Glasses/Contacts: Yes Dentures/Partials: Yes Hand Dominance: Right Upper Extremity ROM WFL, BUE shoulder flexion to approx 130 degrees Upper Extremity Coordination slightly decreased, pt needed assistance opening dressing packet at lunch. Upper Extremity Strength grossly 3/5 BUEs ADL-Treatment Eating (QC): 5 (set up assist, assist opening containers and cutting food.) Oral Hygiene (QC): 5 (based on clincial judgement, set up assist seated.) Shower/Bathe Self (QC): 1 (based on clincial judgement, assist x2 required in order to wash buttocks.) Upper Body Dressing (QC): 4 (based on clincial judgement, CGA with task.) Lower Body Dressing (QC): 1 (based on clinical judgement, assist x2 for pant hike) On/Off Footwear (QC): 1 (based on clincial judgement, pt would require total assistance.) Toileting Hygiene (QC): 1 (based on clincial judgement, Pt would require assist x2 in stand, assist with all parts.) Other Treatments [id number] OT Evaluation, [id number] OT/PT cotreat due to skill of 2 clinicians required which a rehabilitation therapy aide could not perform in order to decrease fall risk, address safety concerns, and due to pt's limitations in strength, activity tolerance, mobility, and endurance. OT focused on ADLs, UE placement, cues for sequencing and safety, while PT focused on LE placement, gross overall movement and transfers/mobility. Pt assisted up to w/c, and OT assisted pt with set up for lunch. [id number] OT/PT cotreat due to skill of 2 clinicians required which a rehabilitation therapy aide could not perform in order to decrease fall risk, address safety concerns, and due to pt's limitations in strength, activity tolerance, mobility, and endurance. OT focused on ADLs, UE placement, cues for sequencing and safety, while PT focused on LE placement, gross overall movement and transfers/mobility. Pt propelled w/c around ARU common area, assist with turns and through doorways. Pt transferred from w/c to bed, assist x2. Then assist x2 from EOB to supine. Pt educated on ARU expectations and process. Post tx, pt laying in bed, call light in reach and all needs met. Education OT Patient Education: Correct positioning, Modified ADL techniques, Progress toward Goal/Update tx plan, Purpose of tx/functional activities, Rehab process Teaching Recipient: Patient Teaching Methods: Discussion Response to Teaching: Verbalize Understanding OT Short Term Goals Short Term Goals Time Frame: Sep 24, 2020 Toileting hygiene: 3 Lower body dressin Putting on/taking off footwear: 3 OT Supervisor Soldering Goals [facility] Goals Time Frame: Oct 08, 2020 Eating (QC): 6 Oral Hygiene (QC): 6 Toileting Hygiene (QC): 4 Shower/Bathe Self (QC): 4 Upper Body Dressing (QC): 5 Lower Body Dressing (QC): 4 On/Off Footwear (QC): 4 Additional Goals: 1-Demonstrate ADL Tasks, 2-Verbalize Understanding, 3- ImproveStrength/Ruthie 1=Demonstrate adherence to instructed precautions during ADL tasks. 2=Patient will verbalize/demonstrate understanding of assistive devices/modifications for ADL. 3=Patient will improve strength/tolerance for activity to enable patient to perform ADL's. OT Education/Plan Problem List/Assessment Assessment: Decreased Activ Tolerance, Decreased Safety Aware, Decreased UE Strength, Dependent Transfers, Impaired Funct Balance, Impaired I ADL's, Impaired Self-Care Skills Discharge Recommendations Plan/Recommendations: Continue POC Treatment Plan/Plan of Care Patient would benefit from OT for education, treatment and training to promote independence in ADL's, mobility, safety and/or upper extremity function for ADL's. Plan of Care: ADL Retraining, Functional Mobility, Group Exercise/Act as Ind, UE Funct Exercise/Act Treatment Duration: Oct 08, 2020 Frequency: At least 5 of 7 days/Wk (IRF) Estimated Hrs Per Day: 1.5 hours per day Agreement: Yes Rehab Potential: Fair Time/GCodes Start Time: 12:40 ([id number]) Stop Time: 14:25 ([id number]) Total Time Billed (hr/min): 45 Billed Treatment Time 1196-9000 OT evaluation, [id number] OT/PT cotreat = 20mins 1, EVM [id number] OT/PT cotreat = 25mins 1, FA 2 HARLEY LOCKE OT Sep 13, 2020 13:02
--- NOTE | 2020-09-13 13:25 | Physical Therapy Evaluation ---
PT Evaluation-General Medical Diagnosis Admission Date 09/13/2020 Medical Diagnosis: L hip fx Onset Date: Sep 09, 2020 Therapy Diagnosis Therapy Diagnosis: weakness; abn gait Height/Weight Height (Feet): 5 Height (Inches): 6.00 Weight (Pounds): 220 Weight (Ounces): 10.0 Precautions Precautions/Isolations: Standard Precautions Weight Bear Status Right Lower Extremity: Right Full Weight Bearing Left Lower Extremity: Left Weight Bearing/Tolerated Referral Physician: Kp Reason for Referral: Evaluation/Treatment Medical History Pertinent Medical History: Arthritis, CAD, CVA, DM, HTN, [place], Neuropathy Current History Pt sustained a fall on 09/09/20 that resulted in a left hip fracture that has been repaired with a percutaneous screw. Pt was also found to have a UTI> Reviewed History: Yes Social History Home: Assisted Living ([facility]) Entry Into Home: Level Entry Prior Prior Level of Function SCALE: Activities may be completed with or without assistive devices. 0-Sshofptshl-itfcleo completes the activity by him/herself with no assistance from a helper. 5-Set-up or Clean-up Assistance-helper sets up or cleans up; patient completes activity. Ideal assists only prior to or following the activity. 4-Supervision or Touching Assistance-helper provides verbal cues and/or touching/steadying and/or contact guard assistance as patient completes activ ity. Assistance may be provided throughout the activity or intermittently. 3-Partial/Moderate Assistance-helper does LESS THAN HALF the effort. Ideal lifts, holds or supports trunk or limbs, but provides less than half the effort. 2-Substantial/Maximal Assistance-helper does MORE THAN HALF the effort. Ideal lifts or holds trunk or limbs and provides more than half the effort. 2-Nnpakklrw-elpfdh does ALL the effort. Patient does none of the effort to complete the activity. Or, the assistance of 2 or more helpers is required for the patient to complete the activity. If activity was not attempted, code reason: 7-Patient Refused. 9-Not Applicable-not attempted and the patient did not perform the activity before the current illness, exacerbation or injury. 10-Not Attempted due to Environmental Limitations-(lack of equipment, weather restraints, etc.). 88-Not Attempted due to Medical Conditions or Safety Concerns. Bed Mobility: 6 Transfers (B,C,W/C): 6 Gait: 6 Indoor Mobility (Ambulation): Independent Stairs: Needed Some Help Pt had just moved to [facility], living at a mod indep level of mobility. PT Evaluation-Current Subjective Pt agrees to PT evaluation. Reports she has left hip pain. Also notes right knee pain that she reports she has not told the doctor about. Pain Numeric Pain Scale: 7 Location: Left Location Body Site: Elbow Pain Description: Ache, Dull, Pressure Pt/Family Goals Her goal is to return to her [facility] apartment when able. Objective Patient Orientation: Person, Confused (slow to process information and slight confusion noted. ), Place, Time, Situation ROM/Strength ROM Lower Extremities AAROM WFL; painful with movement of left hip. Strength Lower Extremities Right LE strength is grossly 3-/5; left LE strength is grossly 2/5 throughout and limited by pain Integumentary/Posture Integumentary Refer to nursing notes for full assessment Bowel Incontinence: Yes (gastroparesis) Bladder Incontinence: Leiva Cath Posture Shoulders are symmetrical and head is upright Neuromuscular (Tone, Coordination, Reflexes) intact and functional Sensory Vision: Wears Glasses Hearing: Functional Hand Dominance: Right Sensation Right Lower Extremit: Intact Sensation Left Lower Extremity: Intact Transfers Roll Left & Right (QC): 1 Sit to Lying (QC): 1 Lying to Sitting/Side of Bed(Q: 1 Sit to Stand (QC): 1 (assist of 2 and unable to come to a full stand. ) Chair/Trd-qu-Ndvjw Xfer(QC): 1 (assist of 2 and unable to use the FWW) Toilet Transfer (QC): 1 Car Transfer (QC): 88 (unsafe to attempt this date. ) Gait Does the Patient Walk?: No and Walking Goal IS indicated Mode of Locomotion: Walk Anticipated Mode of Locomotion: Walk Walk 10 feet (QC): 88 Walk 50 ft with 2 Turns(QC): 88 Walk 150 ft (QC): 88 Walking 10ft/uneven surface-QC: 88 Comments/Gait Description pt unable to effectively stand, therefore, unable to ambulate. Wheelchair Training Does the Pt Use a Wheelchair?: No Wheel 50 ft with 2 turns (QC): 3 Wheel 150 ft (QC): 9 Stairs 1 Step (curb) (QC): 88 4 Steps (QC): 88 12 Steps (QC): 88 Balance Sitting Static: Fair Sitting Dynamic: Normal Standing Static: Poor Standing Dynamic: Poor Picking up an Object (QC): 88 Treatment Co treat with OT due to the need for the skill of 2 clinicians to complete the tasks. Pt requires heavy and frequent cues for all task completion with repetition. OT addressed use and placment of UE as PT addressed gross LE movement and transfer skills. Functional SPT transfers performed using 2 person assist (skilled assist); bed mobility requiring assist of 2. Assessment/Needs Post fall that resulted in a left hip fracture that has been repaired. She was ambulatory without assist prior to this fall. She presents with functional strength and balance deficits that significantly impair bed mobility, transfers and her ability to ambulate. She will benefit from skilled PT services to address functional mobility and strength to allow her to return to her prior living environment. Rehab Potential: Good PT Short Term Goals Short Term Goals Time Frame: Sep 27, 2020 Sit to lyin Lying to sitting on side of be: 3 Sit to stand: 3 Walk 50 feet with two turns: 3 PT Outside Sales Account Representative Goals Nursing Home Goals PT Outside Sales Account Representative Goals Time Frame: Oct 11, 2020 Roll Left & Right (QC): 6 Sit to Lying (QC): 6 Lying-Sitting on Side/Bed(QC): 6 Sit to Stand (QC): 6 Chair/Txx-kt-Ghngg Xfer(QC): 6 Toilet Transfer (QC): 6 Car Transfer (QC): 5 Does the Patient Walk: No and Walking Goal IS indicated Walk 10 feet (QC): 6 Walk 50ft with 2 Turns (QC): 6 Walk 150 ft (QC): 6 Walking 10ft on Uneven Surface: 5 1 Step (curb) (QC): 6 4 Steps (QC): 6 12 Steps (QC): 9 Picking up an Object (QC): 4 Does the Pt use WC or Scooter?: No Wheel 50 feet with 2 turns (QC: 9 Wheel 150 feet: 9 PT Plan Problem List Problem List: Activity Tolerance, Functional Strength, Safety, Balance, Gait, Transfer, Bed Mobility Treatment/Plan Treatment Plan: Continue Plan of Care Treatment Plan: Bed Mobility, Education, Functional Activity Ruthie, Functional Strength, Group Therapy, Gait, Safety, Therapeutic Exercise, Transfers Treatment Duration: Oct 11, 2020 Frequency: At least 5 of 7 days/Wk (IRF) Estimated Hrs Per Day: 1.5 hours per day Patient and/or Family Agrees t: Yes Safety Risks/Education Patient Education: Transfer Techniques, Safety Issues Teaching Recipient: Patient Teaching Methods: Demonstration, Discussion Response to Teaching: Reinforcement Needed Discharge Recommendations Therapy Discharge Recommendati: Post Acute PT ([facility]HC PT) Time/GCodes Time In: 1230 Time Out: 1240 ([id number] Co treat with OT) Total Billed Treatment Time: 45 Total Billed Treatment visit x 2 EVM 10 ([id number]) FA 10 ([id number]) FA x 2([id number]) SARABJIT SALGADO PT Sep 13, 2020 13:25
--- NOTE | 2020-09-13 13:59 | History & Physical-Hospitalist ---
SUSIE GO MD 09/13/20 1359: History of Present Illness HPI/Chief Complaint Pt is a 65yoCF with a PMH of HTN, IDDMII, recent CVA who presented to the ER due to a fall and was found to have a displaced hip fracture. She underwent operative repair by Dr Villa. She normally resides at [facility] and is ambulating but have deficits from her recent CVA. She is being admitted to IRU for intensive therapy. Source: patient Exam Limitations: no limitations Date Seen 09/13/20 Time Seen by a Provider: 13:53 Attending Physician Teressa Kirkland DO PCP Amauri Peralta MD Referring Physician Date of Admission Home Medications & Allergies Home Medications Reviewed patient Home Medication Reconciliation performed by pharmacy medication reconciliations cogeneration technician and/or nursing. Patients Allergies have been reviewed. Allergies Allergies Coded Allergies celecoxib (Unverified Allergy, Unknown, 03/08/15) cinacalcet (Verified Allergy, Unknown, 03/07/20) clarithromycin (Verified Allergy, Unknown, 03/07/20) codeine (Verified Allergy, Unknown, 03/07/20) hydrocodone (Verified Allergy, Unknown, 03/07/20) levofloxacin (Verified Allergy, Unknown, 03/08/15) isosorbide (Verified Adverse Reaction, Unknown, severe hypotension, 03/08/15) Past Bqsskjm-Xkgrgx-Hipdki Hx Patient Social History Employed/Student: retired Immunizations Up To Date Date of Influenza Vaccine: Jan 04, 2020 Tetanus Booster (TDap): Unknown Hepatitis A: No Hepatitis B: No Date of Pneumonia Vaccine: Mar 07, 2014 Seasonal Allergies Seasonal Allergies: No Current Status Primary Language: Moldovan Past Medical History Surgeries: Gallbladder, Hysterectomy, Orthopedic, Tonsillectomy Sleep Apnea Currently Using CPAP: Yes Cardiomyopathy, Coronary Artery Disease, Heart Attack, High Cholesterol, Hypertension Neuropathy, Stroke, Vertigo Sexually Transmitted Disease: No HIV/AIDS: No Kidney Stones, Renal Failure Gastroesophageal Reflux, Chronic Constipation Arthritis, Back Injury Diabetes, Insulin dep Chronic Ear Infection Hearing Impairment: Hard of Hearing Blood Disorders: No Adverse Reaction/Blood Tranf: No Family Medical History Cancer (lung and ovarian) 09 BROTHER, Onset:30's - 40 09 SISTER, Onset:60 years & older Congenital heart disease (mitral valve prolapse) 09 SISTER 09 SISTER Congestive heart failure 03 FATHER, Onset:60 years & older 03 MOTHER, Onset:50's - 60 09 SISTER, Onset:60 years & older Family history: Arthritis 03 MOTHER, Onset:60 years & older Family history: Diabetes mellitus 03 FATHER, Onset:60 years & older 09 SISTER, Onset:50's - 60 Family history: Gastrointestinal disease 03 FATHER, Onset:50's - 60 Hereditary disease (HTN) 09 SISTER, Onset:40's - 50 History of - disorder (Urinary problems) 09 SISTER, Onset:60 years & older 09 SISTER, Onset:20's - 25 History of - respiratory disease (asthma) 09 SISTER Hypercholesterolemia 09 SISTER, Onset:50's - 60 Psychotic disorder (anxiety) 09 SISTER, Onset:30's - 40 Heart Disease Review of Systems Constitutional: No chills, No fever Physical Exam Physical Exam Vital Signs Vital Signs - First Documented 09/13/20 12:30 Temp 36.0 Pulse 68 Resp 16 B/P (MAP) 124/71 (88) Pulse Ox 90 O2 Delivery Room Air Capillary Refill : Height, Weight, BMI Height: 5'6.00" Weight: 220lbs. 10.0oz. [id number]; 33.04 BMI Method:Estimated Results Results/Procedures Labs Patient resulted labs reviewed. Assessment/Plan Admission Diagnosis Hip fracture Admission Status: Inpatient Order (span 2 midnights) Reason for Inpatient Admission: see below Assessment and Plan Hip fracture Recent CVA OR on 09/10 Continue PT/OT Continue intensive therapies to maximize gains HTN HLD Continue home meds IDDMII Continue home meds TERESSA KIRKLAND DO 09/13/20 1902: Past Exonmzo-Tasipe-Nafugc Hx Patient Social History Marrital Status: single Employed/Student: retired Family Medical History Cancer (lung and ovarian) 09 BROTHER, Onset:30's - 40 09 SISTER, Onset:60 years & older Congenital heart disease (mitral valve prolapse) 09 SISTER 09 SISTER Congestive heart failure 03 FATHER, Onset:60 years & older 03 MOTHER, Onset:50's - 60 09 SISTER, Onset:60 years & older Family history: Arthritis 03 MOTHER, Onset:60 years & older Family history: Diabetes mellitus 03 FATHER, Onset:60 years & older 09 SISTER, Onset:50's - 60 Family history: Gastrointestinal disease 03 FATHER, Onset:50's - 60 Hereditary disease (HTN) 09 SISTER, Onset:40's - 50 History of - disorder (Urinary problems) 09 SISTER, Onset:60 years & older 09 SISTER, Onset:20's - 25 History of - respiratory disease (asthma) 09 SISTER Hypercholesterolemia 09 SISTER, Onset:50's - 60 Psychotic disorder (anxiety) 09 SISTER, Onset:30's - 40 Review of Systems Constitutional: see HPI Physical Exam Physical Exam General Appearance: No Apparent Distress, WD/WN, Chronically ill, Obese HEENT: PERRL/EOMI, Normal ENT Inspection, Pharynx Normal, Moist Mucous Membranes Neck: Full Range of Motion, Normal Inspection, Non Tender Respiratory: Chest Non Tender, Lungs Clear, Normal Breath Sounds, No Accessory Muscle Use, No Respiratory Distress Cardiovascular: Regular Rate, Rhythm, No Edema, No Gallop, No JVD, No Murmur, Normal Peripheral Pulses Gastrointestinal: Normal Bowel Sounds, No Organomegaly, No Pulsatile Mass, Non Tender, Soft Back: Normal Inspection, No CVA Tenderness, No Vertebral Tenderness Extremity: Normal Capillary Refill, Normal Inspection, Normal Range of Motion (except left leg), Non Tender, No Calf Tenderness, No Pedal Edema Neurologic/Psychiatric: Alert, Oriented x3, No Motor/Sensory Deficits, stereoptician II- XII Norm as Tested, Abnormal Gait, Depressed Affect, Motor Weakness (lower extremities bilateral) Skin: Normal Color, Warm/Dry Lymphatic: No Adenopathy Assessment/Plan Admission Diagnosis Assessment: Left femur fracture s/p repair 09/10/20 Post op anemia h/o right sided weakness with facial droop not a tPa candidate per Stroke center [facility] MRI inconclusive for CVA 03/07/20 s/p CVA w/residual left facial droop and left upper and lower extremity weakness August 2018 IRF course DM poorly controlled CAD inoperable multi-vessel disease declined heart transplant at [facility] 2014 HTN HLP CRI Insomnia GERD Gastroparesis OP Neuropathy Hypoglycemia episodes Plan: Rehab protocol Insulin Pain control Admission Status: Inpatient Order (span 2 midnights) Reason for Inpatient Admission: hip fx Diagnosis/Problems Diagnosis/Problems (1) Fall Status: Acute (2) Closed left hip fracture Status: Acute (3) Hyperglycemia due to diabetes mellitus Status: Acute (4) Left hemiparesis (5) CVA (cerebral vascular accident) (6) Gastroparesis (7) Hypertension Status: Acute (8) GERD (gastroesophageal reflux disease) (9) Weakness Status: Acute (10) Renal insufficiency (11) Neuropathy (12) Hyperlipemia (13) CAD (coronary artery disease) (14) Osteoporosis (15) Diabetes mellitus (16) Insomnia (17) Facial droop as late effect of cerebrovascular accident (CVA) Assessment/Plan Assessment and Plan Assess & Plan/Chief Complaint REHAB/MEDICAL ASSESSMENT AND PLAN: REHAB IMPAIRMENT GROUP: Left femur fracture ETIOLOGIC DIAGNOSIS: Left femur fracture The comorbidities that impact the patients function and/or functional outcome by: severe DM, inoperable CAD, CRI, HTN, gastroparesis, CVA hx REHAB PLAN: The patient is being admitted to our comprehensive inpatient rehabilitation facility and can tolerate the intensity of service consisting of at least: 180 minutes of therapy a day, 5 out of 7 days a week Rehab treatment will consist of: PT and OT will focus on left extremity pain with requirements to increase ADLs and ambulation in order to return to independent living The patient/family has a good understanding of our discharge process and will benefit from an interdisciplinary inpatient rehabilitation program. The patient has potential to make improvement and is in need of at least two of the following multidisciplinary therapies including but not limited to physical, occupational, speech, and prosthetics and orthotics. Additionally the patient will need services from respiratory, nutritional services, wound care, psychology, etc. (Customize this to each patient). Given the patients complex condition and risk of further medical complications, rehabilitation services cannot be safely or effectively provided at a lower level of care such as a retirement facility. BARRIERS TO DISCHARGE: Lives alone previously ESTIMATED LOS: 10 days DISPOSITION: Home with home care? RELEVANT CHANGES SINCE PREADMISSION SCREENING: I have compared the patients medical and functional status at the time of the preadmission screening and there are: no changes PROGNOSIS: Fair REHABILITATION GOALS: 1. PT and OT will focus on left lower extremity pain and decreased ROM with requirements to increase ADLs and ambulation in order to return to independent living All the above goals were reviewed with the patient and he/she is in agreement. By signing this document, I acknowledge that I have personally performed a full physical examination on this patient within 24 hours of admission to this inpatient rehabilitation facility and have determined the patient to be able to tolerate the above course of treatment at an intensive level for a reasonable period of time. I will be completing a detailed individualized Plan of Care for this patient by day #4 of the patients stay based upon the Preadmission Screen, the Post-Admission Evaluation, and the therapy evaluations. Assessment: Left femur fracture s/p repair Post op anemia h/o right sided weakness with facial droop not a tPa candidate per Stroke center [facility] MRI inconclusive for CVA 03/07/20 s/p CVA w/residual left facial droop and left upper and lower extremity weakness August 2018 IRF course DM poorly controlled CAD inoperable multi-vessel disease declined heart transplant at [facility] 2014 HTN HLP CRI Insomnia GERD Gastroparesis OP Neuropathy Hypoglycemia episodes Plan: Rehab protocol Insulin Pain control SUSIE GO MD Sep 13, 2020 13:59 TERESSA KIRKLAND DO Sep 13, 2020 19:02
--- NOTE | 2020-09-13 14:37 | Therapy Group Daily Note ---
Therapy Daily Group Note Patient Education Topic Other List Below (hospital bed and mobility) Exercises LE Seated Exercise, UE Exercise Session Ratio (pt:therapist): 4:1 Goal of Session: UE/LE Strengthing, Use of Adaptive Equipment Goal Met for this Session: Yes Pt Benefit of Group: Contributions to Others, F/U Use of Strategies @Home, Increased Functional Safety, Increased Functional Strength, Improved Cognition, Recognition of Peers, Socialization Other/Notes Pt transported via w/c to [facility] for OT/PT group. Group consisted of introductions (name, place born, favorite restaurant), socialization, B UE seated exercises, education on hospital bed and mobility. Pt able to introduce self appropriately and actively listening to peers. Pt acknowledged understanding by verbalizing own experience. Pt was able to complete B UE se ated exercises well. After session, pt left in care of OT/PT. All needs met. Start Time: 13:00 Stop Time: 14:00 Total Billed Treatment Time: 60 Total Billed Treatment 1-GRP SARABJIT SANDOVAL Sep 13, 2020 14:37
--- NOTE | 2020-09-13 15:27 | ST Cognitive Linguistic Eval ---
Speech Evaluation-General Medical Diagnosis L hip fx Onset Date: Sep 09, 2020 Therapy Diagnosis Therapy Diagnosis: Cognitive-communication Referral Referring Physician: Dr. Goodrich Medical History Pertinent Medical History: Arthritis, CAD, CVA, DM, HTN, GA, Neuropathy Reviewed History: Yes Social History Home: [facility] Speech PLF-Current Status Prior Level of Function Patient is a resident of [facility] where she was continuing her therapy post CVA. Subjective Patient was pleasant and cooperative with the cognitive assessment. Language Eval: Auditory Comprehends Simple Yes/No Ques: Functional Indent/Objects Multiple Paredes: Functional Ident/Pics in Multiple Paredes: Functional Follows Complex Directions: Mild Follows General Conversations: Mild Language Eval: Verbal Language Completes Spontaneous Greeting: Functional Produces Auto, Serial Info: Functional Imitates Simple Words/Phrases: Functional Word Finding: Functional Requests Basic Needs: Functional States Basic Personal Info: Mild Expresses Complex Ideas: Moderate Objective Cognitive Domain Attention: Mild Memory: Mild Problem Solving: Mild Executive Functions: Mild Visuospatial Skills: Mild Composite Severity Rating: Moderate Clock Drawing Severity Rating: Moderate Objective Formal/Standardized Tests [facility] Mental Status ([facility]) Results 22/30, Mild Neurocognitive Disorder range of function Oral Motor/Speech Production Within Normal Limits Impression Patient is a pleasant 65 y/o female who was admitted to the ARU due to a fall with injury at the SNF. Patient completed the UMS at bedside with a score of 22/30 which is within the MNCD range of function. The patient's score is indicative of needing further ST services. These services will focus on safety awareness and cognitive function in order to be safer in her return to the SNF. Speech Patient Assess Expression of Ideas/Wants: Frequently (2) Understanding Verbal Content: Usually Understands (3) Brief Interview-Mental Status: Yes Repetition of Three Words: Three (3) Temporal Orientation: Year: Correct (3) Temporal Orientation: Month: Accurate within 5 days(2) Temporal Orientation: Day: Correct (1) Recall : Wear to say "Sock": Yes,after cueing (1) Recall : Color: No, could not recall (0) Recall : Bed: No, could not recall (0) Memory/Recall Ability: Current season, That he or she is in a hsp/hsp unit Speech Short Term Goals Short Term Goals Short Term Goals 1) Patient will complete a series of cognitive tasks related to safety awareness for her daily needs at 80% or greater with minimal tasks. 2) Patient will utilize memory strategies as trained for daily routine at 80% or greater with minimal tasks. Speech Prison Goals Air Sampling And Monitoring Goals Patient will improve cognitive function and safety awareness in order to return to SNF with higher level of function. Speech-Plan Patient/Family Goals Patient/Family Goals: Patient plans on returning to the SNF for continued therapy upon ARU discharge. Treatment Plan Speech Therapy Treatment Plan: Continue Plan of Care Treatment Duration: Sep 24, 2020 Frequency: 4 times per week (Patient will receive skilled ST 4-5x per week) Estimated Hrs Per Day: .5 hour per day (Patient will receive skilled ST 4-5x per week) Rehab Potential: Good Barriers to Learning: Patient's recent decline in cognitive function, health and recent fall with injury Pt/Family Agrees to Plan: Yes Safety Risks/Education Teaching Recipient: Patient Teaching Methods: Discussion Response to Teaching: Verbalize Understanding Education Topics Provided: Safety within her room, communication of wants/needs Time Speech Therapy Time In: 14:30 Speech Therapy Time Out: 15:00 Total Billed Time: 30 Billed Treatment Time 1, MELISSA GARCIA BETHANIA ST Sep 13, 2020 15:27
[2020-09-13] MEDS ORDERED: morphine INJ 10 MG/ML 1ML (SYR OR VIAL) IVP PRN (17:00)
[2020-09-13] MEDS ORDERED: ONDANSETRON 4 MG/2 ML (SDV) Z0FRAN IVP PRN (17:00)
[2020-09-13] MEDS ORDERED: morphine INJ 4 MG/ML 1 ML (VIAL/SYRINGE) IV PRN (17:30)
[2020-09-13] MEDS: inSUlin (REGULAR) HUMAN 1 UNIT/0.01 ML (CHARGE PER UNIT) SC SCH (18:54)
[2020-09-13] MEDS: NITROFURANTOIN 100 MG (MACROBID) CAPSULE PO SCH (18:54)
[2020-09-13 20:15] VITALS: BP 156/85
[2020-09-13] MEDS: polyethylene glycoL POWDER 17 GM (MIRALAX) PACK PO SCH (22:30)
[2020-09-13] MEDS: inSUlin ASPART (NovoLOG) 1 UNIT/0.01 ML (CHARGE PER UNIT) SC SCH (22:30)
[2020-09-13] MEDS: DOCUSATE SODIUM 100 MG (COLACE) CAP PO SCH (22:52)
[2020-09-13] MEDS: OXYBUTYNIN (DITROPAN) 5 MG TAB PO SCH (22:52)
[2020-09-13] MEDS: SERTRALINE 50 MG (ZOLOFT) TABLET PO SCH (22:52)
[2020-09-13] MEDS: SENNA W/DOCUSATE (SENOKOT S) TABLET PO SCH (22:52)
[2020-09-13] MEDS: RANOLAZINE ER 500 MG TAB (RANEXA) PO SCH (22:52)
[2020-09-14 05:27] LABS: BASOPHILS % (AUTO) 0 % (0-10); EOSINOPHILS # (AUTO) 0.1 10^3/uL (0.0-0.3); EOSINOPHILS % (AUTO) 2 % (0-10); HEMATOCRIT 30 % (35-52); HEMOGLOBIN 10.4 g/dL (11.5-16.0); LYMPHOCYTES # (AUTO) 1.3 10^3/uL (1.0-4.0); LYMPHOCYTES % (AUTO) 19 % (12-44); MEAN CORPUSCULAR HEMOGLOBIN 34 pg (25-34); MEAN CORPUSCULAR HGB CONC 34 g/dL (32-36); MEAN CORPUSCULAR VOLUME 100 fL (80-99); MEAN PLATELET VOLUME 11.5 fL (9.0-12.2); MONOCYTES # (AUTO) 0.6 10^3/uL (0.0-1.0); MONOCYTES % (AUTO) 8 % (0-12); NEUTROPHILS # (AUTO) 4.9 10^3/uL (1.8-7.8); NEUTROPHILS % (AUTO) 70 % (42-75); PLATELET COUNT 126 10^3/uL (130-400)
[2020-09-14 05:38] LABS: ALBUMIN 3.3 GM/DL (3.2-4.5); POTASSIUM 4.5 MMOL/L (3.6-5.0)
[2020-09-14 05:39] LABS: CALCIUM 10.2 MG/DL (8.5-10.1)
[2020-09-14 05:41] LABS: TOTAL PROTEIN 6.1 GM/DL (6.4-8.2)
[2020-09-14 05:43] LABS: BILIRUBIN,TOTAL 0.9 MG/DL (0.1-1.0)
[2020-09-14 05:44] LABS: CREATININE SERUM 1.6 MG/DL (0.60-1.30)
[2020-09-14] MEDS: inSUlin ASPART (NovoLOG) 1 UNIT/0.01 ML (CHARGE PER UNIT) SC SCH ×4 (05:51→21:00)
[2020-09-14] MEDS: inSUlin (REGULAR) HUMAN 1 UNIT/0.01 ML (CHARGE PER UNIT) SC SCH ×3 (07:40→16:55)
[2020-09-14] MEDS: polyethylene glycoL POWDER 17 GM (MIRALAX) PACK PO SCH ×2 (07:40→21:00)
[2020-09-14] MEDS: LOSARTAN 100 MG (COZAAR) TABLET PO SCH (07:41)
[2020-09-14] MEDS: NITROFURANTOIN 100 MG (MACROBID) CAPSULE PO SCH ×2 (07:41→17:12)
[2020-09-14] MEDS: DOCUSATE SODIUM 100 MG (COLACE) CAP PO SCH ×2 (07:41→21:14)
[2020-09-14] MEDS: PANTOPRAZOLE 40 MG (PROTONIX) TAB PO SCH (07:41)
[2020-09-14] MEDS: ALLOPURINOL 100 MG (ZYLOPRIM) TAB PO SCH (07:41)
[2020-09-14] MEDS: SENNA W/DOCUSATE (SENOKOT S) TABLET PO SCH ×2 (07:42→21:00)
[2020-09-14] MEDS: oxyCODONE/APAP 5/325MG (PERCOCET 5) TABLET PO PRN ×4 (07:42→21:13)
[2020-09-14 07:44] VITALS: BP 183/88
[2020-09-14] MEDS: OXYBUTYNIN (DITROPAN) 5 MG TAB PO SCH ×2 (07:46→21:14)
--- NOTE | 2020-09-14 08:13 | Cardiology Progress Note ---
Subjective Date Seen by Provider: Sep 14, 2020 Time Seen by Provider: 08:20 Subjective/Events-last exam Patient is sitting up at bedside, c/o bilateral hip pain. Review of Systems General: No Chills, No Night Sweats; Fatigue; No Malaise, No Appetite, No Other HEENT: No Head Aches, No Visual Changes, No Eye Pain, No Ear Pain, No Dysphasia, No Sinus Congestion, No Post Nasal Drip, No Sore Throat, No Other Pulmonary: No Dyspnea, No Cough, No Pleuritic Chest Pain, No Other Cardiovascular: No: Chest Pain, Palpitations, Orthopnea, Paroxysmal Noc. Dyspnea, Edema, Lt Headedness, Other Objective-Cardiology Exam Last Set of Vital Signs Vital Signs 09/14/20 09/14/20 09/14/20 07:44 09:00 13:48 Temp 36.6 Pulse 78 Resp 14 B/P (MAP) 140/76 (97) Pulse Ox 94 O2 Delivery Room Air General: Alert, Oriented X3, Cooperative HEENT: Atraumatic, PERRLA Neck: Supple, No JVD, No Thyromegaly Lungs: Clear to Auscultation, Normal Air Movement Heart: Regular Rate, Normal S1, Normal S2, No Murmurs Abdomen: Normal Bowel Sounds, Soft, No Tenderness, No Hepatosplenomegaly, No Masses Extremities: Other (trace BLE) Skin: No Rashes Neuro: Cranial Nerves 3-12 NL Psych/Mental Status: Mental Status NL Results Lab Laboratory Tests 09/14/20 05:11 A/P-Cardiology Admission Diagnosis Left hip fx CAD CVA HTN Assessment/Plan Left hip surgery, status post repair with screw done by Dr. REAVES on September 10, 2020, doing well. Recovering well. Coronary artery disease, extensive disease, known to have severe LAD stenosis at multiple segment and the artery tapered down into very small artery, severe circumflex artery distally, severe ramus intermedius artery stenosis proximally, severe stenosis in the right coronary artery, patient was referred to [facility], seen by Dr. Wesley and deemed inoperable again, she was referred to [facility] for evaluation for possible heart transplant due to her extensive heart disease, transplant was not recommended. Has been receiving medical treatment only. Tolerated surgery well. Continue to monitor Hx CVA in 2018 and TIA in Mar 2020, unknown etiology. Was maintained on Plavix as outpatient. Currently on hold secondary to hip surgery and recent fall with facial hematoma History of supraventricular tachycardia and palpitation, has been stable. Chest pain, chronic stable angina, treated conservatively, currently not having any active chest pain History of allergy to HALEIGH inhibitor with cough. Hypertension, continue on current medication monitor blood pressure Hyperlipidemia, monitor lipids Diabetes mellitus, managed and followed by primary care physician Chronic renal insufficiency. Managed and followed by primary care physician. History of vitamin D deficiency History of kyphoplasty done about 3 years ago Patient was seen and evaluated with Frances, examination performed, management plan was discussed, agree with the current scribed note, I made few changes to the note using Italic font Supervisory-Addendum Brief Supervisory Addendum Participated in pt care: history, MDM, physical Personally performed: exam, history, MDM Care discussed with: BREANNE Results interpretation: Verified all documentation FRANCES PHAN Sep 14, 2020 08:13 BRITTANY POOL MD Sep 14, 2020 14:07
--- NOTE | 2020-09-14 09:08 | PM&R Progress Note ---
Subjective HPI/CC On Admission Date Seen by Provider: Sep 14, 2020 Time Seen by Provider: 13:00 Pt is a 65yoCF with a PMH of HTN, IDDMII, recent CVA who presented to the ER due to a fall and was found to have a displaced hip fracture. She underwent operative repair by Dr Villa. She normally resides at [facility] and is ambulating but have deficits from her recent CVA. She is being admitted to IRU for intensive therapy. Subjective/Events-last exam 09/14/2020: This visit is via video chat due to Covid related restriction for this provider Patient settling in well Changed to a regular diet that is what she eats at home Creatinine stable at 1.6 with chronic kidney disease Delay in cognition per nursing staff but she seems to be doing pretty well today Having some knee pain on the right side unsure if she fell on it No bowels are moving yet last one was 09/10/2020 Check meds and labs Check Accu-Cheks Review of Systems General: Fatigue Musculoskeletal: leg pain Objective Exam Vital Signs Vital Signs Date Time Temp Pulse Resp B/P (MAP) Pulse Ox O2 Delivery O2 Flow Rate FiO2 09/15/20 07:59 36.6 78 14 121/64 (83) 91 Room Air Capillary Refill : General Appearance: No Apparent Distress, WD/WN, Chronically ill, Obese HEENT: PERRL/EOMI, Normal ENT Inspection, Pharynx Normal, Moist Mucous Membranes Neck: Full Range of Motion, Normal Inspection, Non Tender Respiratory: Chest Non Tender, Lungs Clear, Normal Breath Sounds, No Accessory Muscle Use, No Respiratory Distress Cardiovascular: Regular Rate, Rhythm, No Edema, No Gallop, No JVD, No Murmur, Normal Peripheral Pulses Gastrointestinal: Normal Bowel Sounds, No Organomegaly, No Pulsatile Mass, Non Tender, Soft Back: Normal Inspection, No CVA Tenderness, No Vertebral Tenderness Extremity: Normal Capillary Refill, Normal Inspection, Normal Range of Motion (except left leg), Non Tender, No Calf Tenderness, No Pedal Edema Neurologic/Psychiatric: Alert, Oriented x3, No Motor/Sensory Deficits, manufacturing engineering manager II- 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 FIM Transfers Therapy Code Descriptions/Definitions Functional [place] Measure: 0=Not Assessed/NA 4=Minimal Assistance 1=Total Assistance 5=Supervision or Setup 2=Maximal Assistance 6=Modified [place] 3=Moderate Assistance 7=Complete IndependenceSCALE: Activities may be completed with or without assistive devices. 5-Dultuqpmhb-htgkwxr completes the activity by him/herself with no assistance from a helper. 5-Set-up or Clean-up Assistance-helper sets up or cleans up; patient completes activity. [place] assists only prior to or following the activity. 4-Supervision or Touching Assistance-helper provides verbal cues and/or touching/steadying and/or contact guard assistance as patient completes activity. Assistance may be provided throughout the activity or intermittently. 3-Partial/Moderate Assistance-helper does LESS THAN HALF the effort. [place] lifts, holds or supports trunk or limbs, but provides less than half the effort. 2-Substantial/Maximal Assistance-helper does MORE THAN HALF the effort. [place] lifts or holds trunk or limbs and provides more than half the effort. 8-Bdvqyusrs-ivhjsj does ALL the effort. Patient does none of the effort to complete the activity. Or, the assistance of 2 or more helpers is required for the patient to complete the activity. If activity was not attempted, code reason: 7-Patient Refused. 9-Not Applicable-not attempted and the patient did not perform the activity before the current illness, exacerbation or injury. 10-Not Attempted due to Environmental Limitations-(lack of equipment, weather restraints, etc.). 88-Not Attempted due to Medical Conditions or Safety Concerns. Roll Left to Right (QC): 1 Sit to Lying (QC): 1 Sit to Stand (QC): 1 (assist of 2 and unable to come to a full stand. ) Chair/Ocv-fb-Giris Xfer(QC): 1 (assist of 2 and unable to use the FWW) Car Transfer (QC): 88 (unsafe to attempt this date. ) Gait Training Does the Patient Walk?: No and Walking Goal IS indicated Walk 10 feet (QC): 88 Walk 50 ft with 2 Turns(QC): 88 Walk 150 ft (QC): 88 Walking 10ft/uneven surface-QC: 88 Wheelchair Training Does the Pt Use a Wheelchair?: No Wheel 50 ft with 2 turns (QC): 3 Wheel 150 ft (QC): 9 Stair Training 1 Step (curb) (QC): 88 4 Steps (QC): 88 12 Steps (QC): 88 Balance Picking up an Object (QC): 88 ADL-Treatment Eating (QC): 5 (set up assist, assist opening containers and cutting food.) Oral Hygiene (QC): 5 (based on clincial judgement, set up assist seated.) Shower/Bathe Self (QC): 1 (based on clincial judgement, assist x2 required in order to wash buttocks.) Upper Body Dressing (QC): 4 (based on clincial judgement, CGA with task.) Lower Body Dressing (QC): 1 (based on clinical judgement, assist x2 for pant hike) On/Off Footwear (QC): 1 (based on clincial judgement, pt would require total a ssistance.) Toileting Hygiene (QC): 1 (based on clincial judgement, Pt would require assist x2 in stand, assist with all parts.) Assessment/Plan Assessment and Plan Assess & Plan/Chief Complaint REHAB/MEDICAL ASSESSMENT AND PLAN: REHAB IMPAIRMENT GROUP: Left femur fracture ETIOLOGIC DIAGNOSIS: Left femur fracture The comorbidities that impact the patients function and/or functional outcome by: severe DM, inoperable CAD, CRI, HTN, gastroparesis, CVA hx REHAB PLAN: The patient is being admitted to our comprehensive inpatient rehabilitation facility and can tolerate the intensity of service consisting of at least: 180 minutes of therapy a day, 5 out of 7 days a week Rehab treatment will consist of: PT and OT will focus on left extremity pain with requirements to increase ADLs and ambulation in order to return to independent living The patient/family has a good understanding of our discharge process and will benefit from an interdisciplinary inpatient rehabilitation program. The patient has potential to make improvement and is in need of at least two of the following multidisciplinary therapies including but not limited to physical, occupational, speech, and prosthetics and orthotics. Additionally the patient will need services from respiratory, nutritional services, wound care, psychology, etc. (Customize this to each patient). Given the patients complex condition and risk of further medical complications, rehabilitation services cannot be safely or effectively provided at a lower level of care such as a fci facility. BARRIERS TO DISCHARGE: Lives alone previously ESTIMATED LOS: 10 days DISPOSITION: Home with home care? RELEVANT CHANGES SINCE PREADMISSION SCREENING: I have compared the patients medical and functional status at the time of the preadmission screening and there are: no changes PROGNOSIS: Fair REHABILITATION GOALS: 1. PT and OT will focus on left lower extremity pain and decreased ROM with requirements to increase ADLs and ambulation in order to return to independent living All the above goals were reviewed with the patient and he/she is in agreement. By signing this document, I acknowledge that I have personally performed a full physical examination on this patient within 24 hours of admission to this inpatient rehabilitation facility and have determined the patient to be able to tolerate the above course of treatment at an intensive level for a reasonable period of time. I will be completing a detailed individualized Plan of Care for this patient by day #4 of the patients stay based upon the Preadmission Screen, the Post-Admission Evaluation, and the therapy evaluations. Assessment: Left femur fracture s/p repair Post op anemia h/o right sided weakness with facial droop not a tPa candidate per Stroke center [facility] MRI inconclusive for CVA 03/07/20 s/p CVA w/residual left facial droop and left upper and lower extremity weakness August 2018 IRF course DM poorly controlled CAD inoperable multi-vessel disease declined heart transplant at [facility] 2014 HTN HLP CRI Insomnia GERD Gastroparesis OP Neuropathy Hypoglycemia episodes Plan: Rehab protocol Insulin Pain control 09/14/2020: Pain control Change diet to regular diet Monitor closely (1) Fall Status: Acute (2) Closed left hip fracture Status: Acute (3) Hyperglycemia due to diabetes mellitus Status: Acute (4) Left hemiparesis (5) CVA (cerebral vascular accident) (6) Gastroparesis (7) Hypertension Status: Acute (8) GERD (gastroesophageal reflux disease) (9) Weakness Status: Acute (10) Renal insufficiency (11) Neuropathy (12) Hyperlipemia (13) CAD (coronary artery disease) (14) Osteoporosis (15) Diabetes mellitus (16) Insomnia (17) Facial droop as late effect of cerebrovascular accident (CVA) JAG KIRKLAND DO Sep 14, 2020 09:08
--- NOTE | 2020-09-14 09:09 | Individualized Plan of Care ---
Individualized Plan of Care Rehab Nursing IPOC Order Admission Date Sep 13, 2020 at 12:30 Current Orders Orders Admission Order(Inpt,Obs,Sdc) (09/13/20 12:23) Thien Marquez (09/13/20 12:23) Sequential Compression Device .admit (09/13/20 12:23) Neuropsychiatric Aide-Inpt Rehab Con (09/13/20 12:23) Rehab Nursing Orders-Ipoc (09/13/20 12:23) Physical Therapy Rehab Orders (09/13/20 12:23) Occupational Therapy Rehab Ord (09/13/20 12:23) Speech Therapy Rehab Orders (09/13/20 12:23) Cbc With Automated Diff (09/14/20 06:00) Comprehensive Metabolic Panel (09/14/20 06:00) Precautions (Aru) (09/13/20 12:23) Rehab-Intensity Of Therapy (09/13/20 12:23) Initiate Admission Nursing Pro .admission (09/13/20 12:23) Acetaminophen Tablet/Caplet (Tylenol T (09/13/20 12:30) Alprazolam Tablet (Xanax Tablet) (09/13/20 12:30) Calcium Carbonate Chew Tablet (Antacid C (09/13/20 12:30) Diphenhydramine Tablet (Benadryl Tablet) (09/13/20 12:30) Docusate Sodium Capsule (Colace Capsule) (09/13/20 21:00) Docusate Sodium Capsule (Colace Capsule) (09/13/20 12:30) Bisacodyl Suppository (Dulcolax Supposit (09/13/20 12:30) Lactulose Oral Solution (Enulose Oral So (09/13/20 12:30) Na Phos/Na Biphos Enema (Fleet Enema Alok (09/13/20 12:30) Loperamide Tablet (Imodium Tablet) (09/13/20 12:30) Melatonin Tablet (Melatonin Tablet) (09/13/20 12:30) Polyethylene Glycol Powder Pkt (Miralax (09/13/20 21:00) Ondansetron Oral Dissolve Tab (Zofran (09/13/20 12:30) Senna S Tablet (Senokot S Tablet) (09/13/20 21:00) Initiate Admission Nursing Pro .admission (09/13/20 12:23) Admission Arrival Bed Request (09/13/20 14:05) Patient Visit (09/13/20 ) Pt Eval Moderate Complexity (09/13/20 ) Functional Activities, Ea 15 (09/13/20 ) Patient Visit (09/13/20 ) Patient Visit (09/13/20 ) Functional Activities, Ea 15 (09/13/20 ) Patient Visit (09/13/20 ) Speech Sound Lang Comp (09/13/20 ) Treat. Speech/Lang/Voice (09/13/20 ) Code/Resuscitation (09/13/20 16:57) Dressing Order (Intervention) DAILY (09/13/20 16:57) Incentive Spirometry (Nursing) Q2H (09/13/20 16:57) Cho 60g/M 0snack (16-2000 Fox) (09/13/20 Dinner) Allopurinol Tablet (Zyloprim Tablet) (09/14/20 09:00) Atenolol Tablet (Tenormin Tablet) (09/14/20 09:00) Atorvastatin Tablet (Lipitor Tablet) (09/13/20 21:00) Losartan Tablet (Cozaar Tablet) (09/14/20 09:00) Metoclopramide Tablet (Reglan Tablet) (09/13/20 17:00) Nitrofurantoin Capsule,Macro (Macrobid C (09/13/20 18:00) Oxybutynin Tablet (Ditropan Tablet) (09/13/20 21:00) Pantoprazole Tablet (Protonix Tablet) (09/14/20 09:00) Ranolazine Er Tablet (Ranexa Er Tablet) (09/13/20 21:00) Sertraline Tablet (Zoloft Tablet) (09/13/20 21:00) Acetaminophen Tablet/Caplet (Tylenol T (09/13/20 17:00) Ondansetron Injection (Zofran Injectio (09/13/20 17:00) Insulin (Regular) Human (Novolin R (Per (09/13/20 17:00) Insulin Aspart (Novolog) (Novolog (Charg (09/13/20 21:00) Morphine Injection (Morphine Injection (09/13/20 17:00) Oxycodone/Apap 5/325mg Tablet (Percocet (09/13/20 17:00) Consult Cardiology (09/13/20 16:57) Consult Orthopedic Surgery (09/13/20 16:57) Morphine Injection (Morphine Injection (09/13/20 17:30) Incentive Spirometry Initial (09/13/20 17:28) Patient Visit (09/14/20 ) Treat. Speech/Lang/Voice (09/14/20 ) Amlodipine Tablet (Norvasc Tablet) (09/14/20 12:45) Amlodipine Tablet (Norvasc Tablet) (09/15/20 09:00) General/Regular (09/14/20 Lunch) Patient Visit (09/14/20 ) Functional Activities, Ea 15 (09/14/20 ) Exercise Therap, Ea 15 Min (09/14/20 ) Wheelchair Mgmt/Propulsn 15min (09/14/20 ) Oxycodone/Apap 5/325mg Tablet (Percocet (09/14/20 23:30) Oxycodone/Apap 5/325mg Tablet (Percocet (09/14/20 23:30) Rehab Nursing Orders: Ongoing Assess. of Cognitive Status, Ongoing Assess. of Function Status, Bladder Management, Bladder Scan, Bladder Training, Bowel Management, Bowel Training, Disease Management & Educaiton, DVT Prophylaxis, Fall Prevention, Fluid/Electrolyte/Nutrition Mgmt, Infection Prevention, Medication Management & Education, Management of Risks & Complications, Management of Skin Intergrity, Nutrition Management, Pain Management, Patient/Family Support, Safety Management Intensity of Therapy to be met Patient to be seen: Min.3h per day/5 of 7d PT IPOC Problem List: Activity Tolerance, Functional Strength, Safety, Balance, Gait, Transfer, Bed Mobility Treatment Plan: Continue Plan of Care Bed Mobility, Education, Functional Activity Ruthie, Functional Strength, Group Therapy, Gait, Safety, Therapeutic Exercise, Transfers Treatment Duration: Oct 11, 2020 Frequency: At least 5 of 7 days/Wk (IRF) Estimated Hrs Per Day: 1.5 hours per day OT IPOC Problems: Decreased Activ Tolerance, Decreased Safety Aware, Decreased UE Strength, Dependent Transfers, Impaired Funct Balance, Impaired I ADL's, Impaired Self-Care Skills OT Treatment, Training and Edu: Yes Plan of Care: ADL Retraining, Functional Mobility, Group Exercise/Act as Ind, UE Funct Exercise/Act Treatment Duration: Oct 08, 2020 Frequency: At least 5 of 7 days/Wk (IRF) Estimated Hrs Per Day: 1.[address] IPOC Speech Therapy Treatment Plan: Continue Plan of Care Treatment Duration: Sep 24, 2020 Frequency: 4 times per week (Patient will receive skilled ST 4-5x per week) Estimated Hrs Per Day: .5 hour per day (Patient will receive skilled ST 4-5x per week) Neuropsychiatric Aide/Case Mgmt Neuropsychiatric Aide/Case Managemen: Discharge Planning Dietitian/Grails Web Application Developer Dietitian/Grails Web Application Developer to monitor nutritional status and make changes and/or recommendations as needed and work with speech pathology on dietary upgrades as the occur. Physician IPOC Medical Issues being managed closely and that require the 24 hour availability of a physician: Recent hip fracture with fall and history of stroke and severe inoperable CAD with chronic kidney disease and brittle diabetes will require close monitoring from a physician standpoint to decrease chance of decompensation Medical Issues: Bowel/Bladder Function, DVT Prophylaxis, Falls Precautions, Fluid/Electrolyte/Nutrition Balance, Infection Protection, Pain Management, Wound Care Brief Synthesis of Preadmission Screen, Post-Admission Evaluation, and Therapy Evaluations: PT and OT will focus on regaining enough independent function with ambulation and independent ADLs in order to return back to independent living Medical Prognosis: Fair Anticipated Length of Stay: 10 days JAG KIRKLAND DO Sep 14, 2020 09:09
--- NOTE | 2020-09-14 09:14 | Speech Therapy Daily Note ---
Speech Daily Progress Note Subjective Date Seen by Provider: Sep 14, 2020 Time Seen by Provider: 00:30 Patient was resting in her recliner, states she's not feeling too well this am. She also states she didn't rest well last night. Objective Patient completed a series of questions related to her daily needs. Patient was able to complete at 60% with mod to max cues. Patient was difficult to keep engaged due to being so tired. Treatment Plan Continue Plan of Care Speech Short Term Goals Short Term Goals Short Term Goals 1) Patient will complete a series of cognitive tasks related to safety awareness for her daily needs at 80% or greater with minimal tasks. 2) Patient will utilize memory strategies as trained for daily routine at 80% or greater with minimal tasks. Speech Lumber Buyer Goals Lumber Buyer Goals Patient will improve cognitive function and safety awareness in order to return to SNF with higher level of function. Speech-Plan Patient/Family Goals Patient/Family Goals: Patient will return to the SNF upon discharge. Treatment Plan Speech Therapy Treatment Plan: Continue Plan of Care Treatment Duration: Sep 24, 2020 Frequency: 4 times per week (Patient will receive skilled ST 4-5x per week) Estimated Hrs Per Day: .5 hour per day (Patient will receive skilled ST 4-5x per week) Rehab Potential: Good Barriers to Learning: Patient's current health decline and moderate cognitive decline Pt/Family Agrees to Plan: Yes Safety Risks/Education Teaching Recipient: Patient Teaching Methods: Demonstration, Discussion Response to Teaching: Verbalize Understanding, Return Demonstration, Reinforcement Needed Education Topics Provided: Patient's safety within her room, utilization of the call light when needed Time Speech Therapy Time In: 09:00 Speech Therapy Time Out: 09:30 Total Billed Time: 30 Billed Treatment Time 1MELISSA B[address] ST Sep 14, 2020 09:14
--- NOTE | 2020-09-14 09:30 | Occupational Ther Daily Note ---
OT Current Status-Daily Note Subjective Pt agreeable to OT/PT cotreat in AM, 10/10 pain in BLEs during weightbearing with transfers. Mental Status/Objective Patient Orientation: Person, Place, Situation ADL-Treatment Therapy Code Descriptions/Definitions Functional [place] Measure: 0=Not Assessed/NA 4=Minimal Assistance 1=Total Assistance 5=Supervision or Setup 2=Maximal Assistance 6=Modified [place] 3=Moderate Assistance 7=Complete IndependenceSCALE: Activities may be completed with or without assistive devices. 9-Iodpngullw-prbyizj completes the activity by him/herself with no assistance from a helper. 5-Set-up or Clean-up Assistance-helper sets up or cleans up; patient completes activity. [place] assists only prior to or following the activity. 4-Supervision or Touching Assistance-helper provides verbal cues and/or touching/steadying and/or contact guard assistance as patient completes activity. Assistance may be provided throughout the activity or intermittently. 3-Partial/Moderate Assistance-helper does LESS THAN HALF the effort. [place] lifts, holds or supports trunk or limbs, but provides less than half the effort. 2-Substantial/Maximal Assistance-helper does MORE THAN HALF the effort. [place] lifts or holds trunk or limbs and provides more than half the effort. 5-Wriejffly-ztixlc does ALL the effort. Patient does none of the effort to complete the activity. Or, the assistance of 2 or more helpers is required for the patient to complete the activity. If activity was not attempted, code reason: 7-Patient Refused. 9-Not Applicable-not attempted and the patient did not perform the activity before the current illness, exacerbation or injury. 10-Not Attempted due to Environmental Limitations-(lack of equipment, weather restraints, etc.). 88-Not Attempted due to Medical Conditions or Safety Concerns. Eating (QC): 5 Other Treatment [id number] OT/PT cotreat due to skill of 2 clinicians required which a manager rehab could not perform in order to decrease fall risk, address safety concerns, and due to pt's limitations in strength, activity tolerance, mobility, and endurance. OT focused on ADLs, UE placement, cues for sequencing and safety, while PT focused on LE placement, gross overall movement and transfers/mobility. Pt transferred supine to sit EOB, assist x2. Pt required slow assist due to increased pain with movement. Pt transferred EOB to w/c, assist x2, pt unable to attain stand. Pt taken to therapy gym, reports slight nausea after transfer. Pt used shower cap to wash hair with set up assist, participated in LE exercises preparatory to standing. Pt propelled w/c part way back to room, fatigued quickly, assisted the remainder of the way. Pt agreeable to transfer to recliner, waffle cushion in place. Assist x2 from w/c to recliner, pt had difficulty with scooting back into recliner after multiple attempts with assist x2. Pt used arm rests to scoot back, only able to manage about an inch. Pillow placed at pt's back for comfort, and legs elevated. Post tx, pt up in recliner, call light in reach and all needs met. [id number] OT tx. Pt seated upright in recliner, eating lunch but indicates she is waiting on meatloaf to be delivered. Nurse states this has been ordered for pt. Pt agreeable to UE exercise in order to increase BUE strength and activity tolerance, completing x10 reps each of the following BUE exercises: shoulder flexion, elbow flexion/extension, and finger flexion/extension. Pt required rest breaks between. Post tx, pt seated in recliner, call light in reach and all needs met. Education OT Patient Education: Correct positioning, Modified ADL techniques, Progress toward Goal/Update tx plan, Purpose of tx/functional activities, Rehab process Teaching Recipient: Patient Teaching Methods: Discussion Response to Teaching: Verbalize Understanding OT Short Term Goals Short Term Goals Time Frame: Sep 24, 2020 Toileting hygiene: 3 Lower body dressin Putting on/taking off footwear: 3 OT Software Developer Consultant Goals Detention Goals Time Frame: Oct 08, 2020 Eating (QC): 6 Oral Hygiene (QC): 6 Toileting Hygiene (QC): 4 Shower/Bathe Self (QC): 4 Upper Body Dressing (QC): 5 Lower Body Dressing (QC): 4 On/Off Footwear (QC): 4 Additional Goals: 1-Demonstrate ADL Tasks, 2-Verbalize Understanding, 3- ImproveStrength/Ruthie 1=Demonstrate adherence to instructed precautions during ADL tasks. 2=Patient will verbalize/demonstrate understanding of assistive devices/modifications for ADL. 3=Patient will improve strength/tolerance for activity to enable patient to perform ADL's. OT Education/Plan Problem List/Assessment Assessment: Decreased Activ Tolerance, Decreased UE Strength, Dependent Transfers, Impaired Bed Mobility, Impaired Coordination, Impaired Funct Balance, Impaired I ADL's, Impaired Self-Care Skills Discharge Recommendations Plan/Recommendations: Continue POC Treatment Plan/Plan of Care Patient would benefit from OT for education, treatment and training to promote independence in ADL's, mobility, safety and/or upper extremity function for ADL's. Plan of Care: ADL Retraining, Functional Mobility, Group Exercise/Act as Ind, UE Funct Exercise/Act Treatment Duration: Oct 08, 2020 Frequency: At least 5 of 7 days/Wk (IRF) Estimated Hrs Per Day: 1.5 hours per day Agreement: Yes Rehab Potential: Good Time/GCodes Start Time: 08:00 ([id number]) Stop Time: 13:15 ([id number]) Total Time Billed (hr/min): 75 Billed Treatment Time cotreat x60' [id number] 1, ADL (15'), FA 3 (45') [id number] OT tx 1, EX HARLEY LOCKE OT Sep 14, 2020 09:30
[2020-09-14] MEDS: RANOLAZINE ER 500 MG TAB (RANEXA) PO SCH ×2 (09:37→21:14)
[2020-09-14] MEDS: ATENOLOL 25 MG (TENORMIN) TAB PO SCH (09:37)
--- NOTE | 2020-09-14 10:10 | Physical Therapy Daily Note ---
PT Daily Note-Current Subjective Pt laying in bed upon arrival. Pt agrees to PT. Pain Numeric Pain Scale: 9 Location: Right, Left Location Body Site: Hip Pain Description: Sharp Mental Status Patient Orientation: Person, Place, Time, Situation Transfers SCALE: Activities may be completed with or without assistive devices. 9-Bltxskcvfo-zludwto completes the activity by him/herself with no assistance from a helper. 5-Set-up or Clean-up Assistance-helper sets up or cleans up; patient completes activity. [place] assists only prior to or following the activity. 4-Supervision or Touching Assistance-helper provides verbal cues and/or touching/steadying and/or contact guard assistance as patient completes activity. Assistance may be provided throughout the activity or intermittently. 3-Partial/Moderate Assistance-helper does LESS THAN HALF the effort. [place] lifts, holds or supports trunk or limbs, but provides less than half the effort. 2-Substantial/Maximal Assistance-helper does MORE THAN HALF the effort. [place] lifts or holds trunk or limbs and provides more than half the effort. 8-Rdoiqloxq-zodhuz does ALL the effort. Patient does none of the effort to com plete the activity. Or, the assistance of 2 or more helpers is required for the patient to complete the activity. If activity was not attempted, code reason: 7-Patient Refused. 9-Not Applicable-not attempted and the patient did not perform the activity before the current illness, exacerbation or injury. 10-Not Attempted due to Environmental Limitations-(lack of equipment, weather restraints, etc.). 88-Not Attempted due to Medical Conditions or Safety Concerns. Weight Bearing Right Lower Extremity: Right Full Weight Bearing Left Lower Extremity: Left Weight Bearing/Tolerated Exercises Seated Therapy Exercises: Ankle pumps, Long arc quads, Hip flexion Seated Reps: 10 Treatments 800-900: OT/PT cotreat due to skill of 2 clinicians required which a rehabilitation team lead could not perform in order to decrease fall risk, address safety concerns, and due to pt's limitations in strength, activity tolerance, mobility, and endurance. OT focused on ADLs, UE placement, cues for sequencing and safety, while PT focused on LE placement, gross overall movement and transfers/mobility. Pt transferred supine to sit EOB, assist x2. Pt required slow assist due to increased pain with movement. Pt transferred EOB to w/c, assist x2, pt unable to attain stand. Pt taken to therapy gym, reports slight nausea after transfer. Pt used shower cap to wash hair with set up assist, participated in LE exercises preparatory to standing. Pt propelled w/c part way back to room, fatigued quickly, assisted the remainder of the way. Pt agreeable to transfer to recliner, waffle cushion in place. Assist x2 from w/c to recliner, pt had difficulty with scooting back into recliner after multiple attempts with assist x2. Pt used arm rests to scoot back, only able to manage about an inch. Pillow placed at pt's back for comfort, and legs elevated. Post tx, pt up in recliner, call light in reach and all needs met. [id number]: Pt completes a few Seated Ex in recliner. All needs met, call light in hand. Assessment Current Status: Fair Progress Pt is limited by pain at this time. PT Short Term Goals Short Term Goals Time Frame: Sep 27, 2020 Sit to lyin Lying to sitting on side of be: 3 Sit to stand: 3 Walk 50 feet with two turns: 3 PT Correction Goals Correction Goals PT Bell Cleaner Goals Time Frame: Oct 11, 2020 Roll Left & Right (QC): 6 Sit to Lying (QC): 6 Lying-Sitting on Side/Bed(QC): 6 Sit to Stand (QC): 6 Chair/Hqz-xz-Arzgf Xfer(QC): 6 Toilet Transfer (QC): 6 Car Transfer (QC): 5 Does the Patient Walk: No and Walking Goal IS indicated Walk 10 feet (QC): 6 Walk 50ft with 2 Turns (QC): 6 Walk 150 ft (QC): 6 Walking 10ft on Uneven Surface: 5 1 Step (curb) (QC): 6 4 Steps (QC): 6 12 Steps (QC): 9 Picking up an Object (QC): 4 Does the Pt use WC or Scooter?: No Wheel 50 feet with 2 turns (QC: 9 Wheel 150 feet: 9 PT Plan Problem List Problem List: Activity Tolerance, Functional Strength, Safety, Balance, Gait, Transfer, Bed Mobility Treatment/Plan Treatment Plan: Continue Plan of Care Treatment Plan: Bed Mobility, Education, Functional Activity Ruthie, Functional Strength, Group Therapy, Gait, Safety, Therapeutic Exercise, Transfers Treatment Duration: Oct 11, 2020 Frequency: At least 5 of 7 days/Wk (IRF) Estimated Hrs Per Day: 1.5 hours per day Patient and/or Family Agrees t: Yes Safety Risks/Education Patient Education: Transfer Techniques, Correct Positioning, Safety Issues Teaching Recipient: Patient Teaching Methods: Discussion Response to Teaching: Verbalize Understanding Time/GCodes Time In: 800 Time Out: 1330 Total Billed Treatment Time: 75 Total Billed Treatment 800-900: 1, FA x2 (30m), EX (15m) & [facility] (15m) Co-treat for 60m 1338-2353: 1, EX (15m) HIMANSHU RODRIGUEZ COMFORT STATION ATTENDANT Sep 14, 2020 10:10
--- NOTE | 2020-09-14 12:23 | Progress Note ---
Standard Progress Note Progress Notes/Assess & Plan Date Seen by a Provider: Sep 14, 2020 Time Seen by a Provider: 12:22 Progress/Assessment & Plan c/o hip pain Incision clean and dry. No calf tenderness s/p L hip perc screws WB with walker patient reports she is going to "try harder" with PT/OT FAUSTINO REAVES MD Sep 14, 2020 12:23
[2020-09-14] MEDS ORDERED: amLODIPine 5 MG (NORVASC) TAB PO NR (12:45)
[2020-09-14 13:48] VITALS: BP 140/76
[2020-09-14] MEDS ORDERED: CLOP75TA69 PO (15:39)
[2020-09-14] MEDS ORDERED: INSN1U SQ ×2 (15:39)
[2020-09-14] MEDS ORDERED: ASPI-1238 PO (15:39)
[2020-09-14 20:30] VITALS: BP 182/82
[2020-09-14 21:00] VITALS: BP 135/75
[2020-09-14] MEDS: SERTRALINE 50 MG (ZOLOFT) TABLET PO SCH (21:14)
[2020-09-14] MEDS ORDERED: oxyCODONE/APAP 5/325MG (PERCOCET 5) TABLET PO PRN (23:30)
[2020-09-15] MEDS: inSUlin ASPART (NovoLOG) 1 UNIT/0.01 ML (CHARGE PER UNIT) SC SCH ×4 (05:53→20:49)
[2020-09-15] MEDS: oxyCODONE/APAP 5/325MG (PERCOCET 5) TABLET PO PRN ×5 (06:51→21:00)
[2020-09-15] MEDS: inSUlin (REGULAR) HUMAN 1 UNIT/0.01 ML (CHARGE PER UNIT) SC SCH ×3 (06:52→17:09)
[2020-09-15] MEDS: SENNA W/DOCUSATE (SENOKOT S) TABLET PO SCH ×2 (07:51→21:01)
[2020-09-15] MEDS: DOCUSATE SODIUM 100 MG (COLACE) CAP PO SCH ×2 (07:51→21:02)
[2020-09-15] MEDS: RANOLAZINE ER 500 MG TAB (RANEXA) PO SCH ×2 (07:52→21:00)
[2020-09-15] MEDS: amLODIPine 5 MG (NORVASC) TAB PO SCH (07:52)
[2020-09-15] MEDS: OXYBUTYNIN (DITROPAN) 5 MG TAB PO SCH ×2 (07:52→21:01)
[2020-09-15] MEDS: ATENOLOL 25 MG (TENORMIN) TAB PO SCH (07:52)
[2020-09-15] MEDS: ALLOPURINOL 100 MG (ZYLOPRIM) TAB PO SCH (07:52)
[2020-09-15] MEDS: NITROFURANTOIN 100 MG (MACROBID) CAPSULE PO SCH ×2 (07:52→17:09)
[2020-09-15] MEDS: PANTOPRAZOLE 40 MG (PROTONIX) TAB PO SCH (07:52)
[2020-09-15] MEDS: LOSARTAN 100 MG (COZAAR) TABLET PO SCH (07:52)
[2020-09-15] MEDS: METOCLOPRAMIDE 10 MG (REGLAN) TAB PO PRN ×2 (07:55→21:01)
[2020-09-15 07:59] VITALS: BP 121/64
[2020-09-15] MEDS: polyethylene glycoL POWDER 17 GM (MIRALAX) PACK PO SCH ×2 (08:00→21:00)
--- NOTE | 2020-09-15 08:25 | PM&R Progress Note ---
Subjective HPI/CC On Admission Date Seen by Provider: Sep 15, 2020 Time Seen by Provider: 12:45 Pt is a 65yoCF with a PMH of HTN, IDDMII, recent CVA who presented to the ER due to a fall and was found to have a displaced hip fracture. She underwent operative repair by Dr Villa. She normally resides at [facility] and is ambulating but have deficits from her recent CVA. She is being admitted to IRU for intensive therapy. Subjective/Events-last exam 09/15/2020: This visit is via video chat due to Covid related restriction for this provider Patient having a tough day Not moving around well 2-3 person assist today Plavix and ASA had been held since OR so will restart that because she is reported feeling like she is having TIA's Incontinent of bowel and bladder since DC catheter, she was having these issues before fall No BM since 09/10 so will give more meds 09/14/2020: This visit is via video chat due to Covid related restriction for this provider Patient settling in well Changed to a regular diet that is what she eats at home Creatinine stable at 1.6 with chronic kidney disease Delay in cognition per nursing staff but she seems to be doing pretty well today Having some knee pain on the right side unsure if she fell on it No bowels are moving yet last one was 09/10/2020 Check meds and labs Check Accu-Cheks Review of Systems General: Fatigue, Malaise Neurological: Weakness Objective Exam Vital Signs Vital Signs Date Time Temp Pulse Resp B/P (MAP) Pulse Ox O2 Delivery O2 Flow Rate FiO2 09/15/20 20:14 NIV CPAP 2.00 09/15/20 07:59 36.6 78 14 121/64 (83) 91 Capillary Refill : General Appearance: No Apparent Distress, WD/WN, Chronically ill, Obese HEENT: PERRL/EOMI, Normal ENT Inspection, Pharynx Normal, Moist Mucous Membranes Neck: Full Range of Motion, Normal Inspection, Non Tender Respiratory: Chest Non Tender, Lungs Clear, Normal Breath Sounds, No Accessory Muscle Use, No Respiratory Distress Cardiovascular: Regular Rate, Rhythm, No Edema, No Gallop, No JVD, No Murmur, Normal Peripheral Pulses Gastrointestinal: Normal Bowel Sounds, No Organomegaly, No Pulsatile Mass, Non Tender, Soft Back: Normal Inspection, No CVA Tenderness, No Vertebral Tenderness Extremity: Normal Capillary Refill, Normal Inspection, Normal Range of Motion (except left leg), Non Tender, No Calf Tenderness, No Pedal Edema Neurologic/Psychiatric: Alert, Oriented x3, No Motor/Sensory Deficits, complaint manager II-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 FIM Transfers Therapy Code Descriptions/Definitions Functional [place] Measure: 0=Not Assessed/NA 4=Minimal Assistance 1=Total Assistance 5=Supervision or Setup 2=Maximal Assistance 6=Modified [place] 3=Moderate Assistance 7=Complete IndependenceSCALE: Activities may be completed with or without assistive devices. 6-Rbrtenovof-cldbzzd completes the activity by him/herself with no assistance from a helper. 5-Set-up or Clean-up Assistance-helper sets up or cleans up; patient completes activity. [place] assists only prior to or following the activity. 4-Supervision or Touching Assistance-helper provides verbal cues and/or touching/steadying and/or contact guard assistance as patient completes activity. Assistance may be provided throughout the activity or intermittently. 3-Partial/Moderate Assistance-helper does LESS THAN HALF the effort. [place] lifts, holds or supports trunk or limbs, but provides less than half the effort. 2-Substantial/Maximal Assistance-helper does MORE THAN HALF the effort. [place] lifts or holds trunk or limbs and provides more than half the effort. 1-Rfevefrkt-ylabmv does ALL the effort. Patient does none of the effort to complete the activity. Or, the assistance of 2 or more helpers is required for the patient to complete the activity. If activity was not attempted, code reason: 7-Patient Refused. 9-Not Applicable-not attempted and the patient did not perform the activity before the current illness, exacerbation or injury. 10-Not Attempted due to Environmental Limitations-(lack of equipment, weather restraints, etc.). 88-Not Attempted due to Medical Conditions or Safety Concerns. Roll Left to Right (QC): 1 Sit to Lying (QC): 1 Sit to Stand (QC): 1 (assist of 2 and unable to come to a full stand. ) Chair/Uny-uy-Okchn Xfer(QC): 1 (assist of 2 and unable to use the FWW) Car Transfer (QC): 88 (unsafe to attempt this date. ) Gait Training Does the Patient Walk?: No and Walking Goal IS indicated Walk 10 feet (QC): 88 Walk 50 ft with 2 Turns(QC): 88 Walk 150 ft (QC): 88 Walking 10ft/uneven surface-QC: 88 Wheelchair Training Does the Pt Use a Wheelchair?: No Wheel 50 ft with 2 turns (QC): 3 Wheel 150 ft (QC): 9 Stair Training 1 Step (curb) (QC): 88 4 Steps (QC): 88 12 Steps (QC): 88 Balance Picking up an Object (QC): 88 ADL-Treatment Eating (QC): 5 Oral Hygiene (QC): 5 (based on clincial judgement, set up assist seated.) Shower/Bathe Self (QC): 1 (based on clincial judgement, assist x2 required in order to wash buttocks.) Upper Body Dressing (QC): 4 (based on clincial judgement, CGA with task.) Lower Body Dressing (QC): 1 (based on clinical judgement, assist x2 for pant hike) On/Off Footwear (QC): 1 (based on clincial judgement, pt would require total assistance.) Toileting Hygiene (QC): 1 (based on clincial judgement, Pt would require assist x2 in stand, assist with all parts.) Assessment/Plan Assessment and Plan Assess & Plan/Chief Complaint REHAB/MEDICAL ASSESSMENT AND PLAN: REHAB IMPAIRMENT GROUP: Left femur fracture ETIOLOGIC DIAGNOSIS: Left femur fracture The comorbidities that impact the patients function and/or functional outcome by: severe DM, inoperable CAD, CRI, HTN, gastroparesis, CVA hx REHAB PLAN: The patient is being admitted to our comprehensive inpatient rehabilitation [facility] and can tolerate the intensity of service consisting of at least: 180 minutes of therapy a day, 5 out of 7 days a week Rehab treatment will consist of: PT and OT will focus on left extremity pain with requirements to increase ADLs and ambulation in order to return to independent living The patient/family has a good understanding of our discharge process and will benefit from an interdisciplinary inpatient rehabilitation program. The patient has potential to make improvement and is in need of at least two of the following multidisciplinary therapies including but not limited to physical, occupational, speech, and prosthetics and orthotics. Additionally the patient will need services from respiratory, nutritional services, wound care, psychology, etc. (Customize this to each patient). Given the patients complex condition and risk of further medical complications, rehabilitation services cannot be safely or effectively provided at a lower level of care such as a nursing home facility. BARRIERS TO DISCHARGE: Lives alone previously ESTIMATED LOS: 10 days DISPOSITION: Home with home care? RELEVANT CHANGES SINCE PREADMISSION SCREENING: I have compared the patients medical and functional status at the time of the preadmission screening and there are: no changes PROGNOSIS: Fair REHABILITATION GOALS: 1. PT and OT will focus on left lower extremity pain and decreased ROM with requirements to increase ADLs and ambulation in order to return to independent living All the above goals were reviewed with the patient and he/she is in agreement. By signing this document, I acknowledge that I have personally performed a full physical examination on this patient within 24 hours of admission to this inpatient rehabilitation facility and have determined the patient to be able to tolerate the above course of treatment at an intensive level for a reasonable period of time. I will be completing a detailed individualized Plan of Care for this patient by day #4 of the patients stay based upon the Preadmission Screen, the Post-Admission Evaluation, and the therapy evaluations. Assessment: Left femur fracture s/p repair Post op anemia h/o right sided weakness with facial droop not a tPa candidate per Stroke center [facility] MRI inconclusive for CVA 03/07/20 s/p CVA w/residual left facial droop and left upper and lower extremity weakness August 2018 IRF course DM poorly controlled CAD inoperable multi-vessel disease declined heart transplant at [facility] 2014 HTN HLP CRI Insomnia GERD Gastroparesis OP Neuropathy Hypoglycemia episodes ANNIE on CPAP Plan: Rehab protocol Insulin Pain control 09/14/2020: Pain control Change diet to regular diet Monitor closely 09/15/20: Monitor bowel and bladder CPAP Plavix and ASA restarted (1) Fall Status: Acute (2) Closed left hip fracture Status: Acute (3) Hyperglycemia due to diabetes mellitus Status: Acute (4) Left hemiparesis (5) CVA (cerebral vascular accident) (6) Gastroparesis (7) Hypertension Status: Acute (8) GERD (gastroesophageal reflux disease) (9) Weakness Status: Acute (10) Renal insufficiency (11) Neuropathy (12) Hyperlipemia (13) CAD (coronary artery disease) (14) Osteoporosis (15) Diabetes mellitus (16) Insomnia (17) Facial droop as late effect of cerebrovascular accident (CVA) JAG KIRKLAND DO Sep 15, 2020 08:25
--- NOTE | 2020-09-15 08:34 | Cardiology Progress Note ---
Subjective Date Seen by Provider: Sep 15, 2020 Time Seen by Provider: 08:30 Subjective/Events-last exam Patient is sitting up in bed, denies any chest pain or palpitations. Blood pressure better controlled this morning. Objective-Cardiology Exam Last Set of Vital Signs Vital Signs 09/15/20 09/15/20 07:59 09:00 Temp 36.6 Pulse 78 Resp 14 B/P (MAP) 121/64 (83) Pulse Ox 91 O2 Delivery Room Air General: Alert, Oriented X3, Cooperative HEENT: Atraumatic, PERRLA Neck: Supple, No JVD, No Thyromegaly Lungs: Clear to Auscultation, Normal Air Movement Heart: Regular Rate, Normal S1, Normal S2, No Murmurs Abdomen: Normal Bowel Sounds, Soft, No Tenderness, No Hepatosplenomegaly, No Masses Extremities: Other (trace BLE) Skin: No Rashes Neuro: Cranial Nerves 3-12 NL Psych/Mental Status: Mental Status NL A/P-Cardiology Admission Diagnosis Left hip fx CAD CVA HTN Assessment/Plan Left hip surgery, status post repair with screw done by Dr. REAVES on September 10, 2020, doing well. Recovering well. Coronary artery disease, extensive disease, known to have severe LAD stenosis at multiple segment and the artery tapered down into very small artery, severe circumflex artery distally, severe ramus intermedius artery stenosis proximally, severe stenosis in the right coronary artery, patient was referred to [facility], seen by Dr. Wesley and deemed inoperable again, she was referred to [facility] for evaluation for possible heart transplant due to her extensive heart disease, transplant was not recommended. Has been receiving medical treatment only. Tolerated surgery well. Continue to monitor Hx CVA in 2018 and TIA in Mar 2020, unknown etiology. Was maintained on Plavix as outpatient. Currently on hold secondary to hip surgery and recent fall with facial hematoma History of supraventricular tachycardia and palpitation, has been stable. Chest pain, chronic stable angina, treated conservatively, currently not having any active chest pain History of allergy to HALE[place] inhibitor with cough. Hypertension, amlodipine started yesterday in addition to other medications, continue on current medication monitor blood pressure Hyperlipidemia, monitor lipids Diabetes mellitus, managed and followed by primary care physician Chronic renal insufficiency. Managed and followed by primary care physician. History of vitamin D deficiency History of kyphoplasty done about 3 years ago Patient was seen and evaluated, sitting in a chair, still having hip pain. No chest pain was reported. Continue to monitor blood pressure No changes are recommended from cardiology Supervisory-Addendum Brief Supervisory Addendum Participated in pt care: history, MDM, physical Personally performed: exam, history, MDM Care discussed with: PA Results interpretation: Verified all documentation BETHANIE PHAN Sep 15, 2020 8:34 am BRITTANY POOL MD Sep 15, 2020 3:37 pm
--- NOTE | 2020-09-15 09:01 | Speech Therapy Daily Note ---
Speech Daily Progress Note Subjective Date Seen by Provider: Sep 15, 2020 Time Seen by Provider: 00:30 Patient was resting in her recliner following her OT and PT session. Therapists report patient is having a lot of pain and difficulty with vision and processing information. Objective Patient answered simple y/n and one word answers with moderate processing time allowed at 50%. Frequently she would begin to answer and then trail off with her speech without completion of the answer/response. Assessment Assessment Current Status: Fair Progress Treatment Plan Continue Plan of Care Speech Short Term Goals Short Term Goals Short Term Goals 1) Patient will complete a series of cognitive tasks related to safety awareness for her daily needs at 80% or greater with minimal tasks. 2) Patient will utilize memory strategies as trained for daily routine at 80% or greater with minimal tasks. Speech Alf Goals Product Owner Goals Patient will improve cognitive function and safety awareness in order to return to SNF with higher level of function. Speech-Plan Patient/Family Goals Patient/Family Goals: Patient will return to the SNF upon discharge will she will continue therapy. Treatment Plan Speech Therapy Treatment Plan: Continue Plan of Care Treatment Duration: Sep 24, 2020 Frequency: 4 times per week (Patient will receive skilled ST 4-5x per week) Estimated Hrs Per Day: .5 hour per day (Patient will receive skilled ST 4-5x per week) Rehab Potential: Good Barriers to Learning: Patient's recent health decline due to fall with injury Pt/Family Agrees to Plan: Yes Safety Risks/Education Teaching Recipient: Patient Teaching Methods: Demonstration, Discussion Response to Teaching: Verbalize Understanding, Return Demonstration, Reinforcement Needed Education Topics Provided: Patient's safety, communication of wants/needs Time Speech Therapy Time In: 09:00 Speech Therapy Time Out: 09:30 Total Billed Time: 30 Billed Treatment Time 1, NESS Coon Sep 15, 2020 09:01
--- NOTE | 2020-09-15 09:37 | Occupational Ther Daily Note ---
OT Current Status-Daily Note Subjective Pt reports 10/10 pain in BLEs during weight bearing. Agreeable to OT/PT cotreat. ADL-Treatment Therapy Code Descriptions/Definitions Functional [place] Measure: 0=Not Assessed/NA 4=Minimal Assistance 1=Total Assistance 5=Supervision or Setup 2=Maximal Assistance 6=Modified [place] 3=Moderate Assistance 7=Complete IndependenceSCALE: Activities may be completed with or without assistive devices. 8-Ijvbxowdqn-bfsihlt completes the activity by him/herself with no assistance from a helper. 5-Set-up or Clean-up Assistance-helper sets up or cleans up; patient completes activity. [place] assists only prior to or following the activity. 4-Supervision or Touching Assistance-helper provides verbal cues and/or touching/steadying and/or contact guard assistance as patient completes activity. Assistance may be provided throughout the activity or intermittently. 3-Partial/Moderate Assistance-helper does LESS THAN HALF the effort. [place] lifts, holds or supports trunk or limbs, but provides less than half the effort. 2-Substantial/Maximal Assistance-helper does MORE THAN HALF the effort. [place] lifts or holds trunk or limbs and provides more than half the effort. 0-Yzdlryvhr-bmswzg does ALL the effort. Patient does none of the effort to complete the activity. Or, the assistance of 2 or more helpers is required for the patient to complete the activity. If activity was not attempted, code reason: 7-Patient Refused. 9-Not Applicable-not attempted and the patient did not perform the activity before the current illness, exacerbation or injury. 10-Not Attempted due to Environmental Limitations-(lack of equipment, weather restraints, etc.). 88-Not Attempted due to Medical Conditions or Safety Concerns. Shower/Bathe Self (QC): 1 (assist x2 to wash buttocks. Pt able to wash upper body, assist with buttocks, periarea, and BLEs) Other Treatment OT/PT cotreat due to skill of 2 clinicians required which a vocational rehabilitation counselor could not perform in order to decrease fall risk, address safety concerns, and due to pt's limitations in strength, activity tolerance, mobility, and endurance. OT focused on ADLs, UE placement, cues for sequencing and safety, while PT focused on LE placement, gross overall movement and transfers/mobility. Pt transferred supine to sit EOB, assist x2. Pt completed sponge bath at bed level, able to wash only upper body. Assist x2 to wash buttocks, then assist with periarea, and BLEs. Pt transferred supine to sit EOB, slow movements, assist x2. Pt transferred from EOB to w/c on L side, assist x2 as pt unable to come to stand. Pt propelled w/c around [facility] common area, required hand over hand assistance through doorways and turn. Pt had poor recall within tx, requiring step by step cues and hand over hand assistance with all turns. Once in therapy gym, pt took seated rest breaks, participated in UE reaching task, shifting weight while seated. Pt able to reach for cones using R hand, mod verbal cues. With reaching L hand, pt required max verbal cues. Pt had difficulty maintaining midline in sitting, leaning towards L side, mirror placed in front of pt and pt assisted to midline, she was then able to maintain position. Pt taken back to room, SPT to recliner, assist x2. Attempted to scoot pt back in chair but pt unable to weight bear through BLEs, and difficulty with scooting. Post tx, pt seated in recliner, call light in reach and all needs met, legs elevated. Education OT Patient Education: Correct positioning, Exercise program, Modified ADL techniques, Progress toward Goal/Update tx plan, Purpose of tx/functional activities Teaching Recipient: Patient Teaching Methods: Discussion Response to Teaching: Verbalize Understanding OT Short Term Goals Short Term Goals Time Frame: Sep 24, 2020 Toileting hygiene: 3 Lower body dressin Putting on/taking off footwear: 3 OT Fpc Goals Speech/Language Therapist Goals Time Frame: Oct 08, 2020 Eating (QC): 6 Oral Hygiene (QC): 6 Toileting Hygiene (QC): 4 Shower/Bathe Self (QC): 4 Upper Body Dressing (QC): 5 Lower Body Dressing (QC): 4 On/Off Footwear (QC): 4 Additional Goals: 1-Demonstrate ADL Tasks, 2-Verbalize Understanding, 3- ImproveStrength/Ruthie 1=Demonstrate adherence to instructed precautions during ADL tasks. 2=Patient will verbalize/demonstrate understanding of assistive devices/modifications for ADL. 3=Patient will improve strength/tolerance for activity to enable patient to perform ADL's. OT Education/Plan Problem List/Assessment Assessment: Decreased Activ Tolerance, Decreased UE Strength, Dependent Transfers, Impaired Cognition, Impaired Funct Balance, Impaired I ADL's, Impaired Self-Care Skills, Restricted Funct UE ROM Discharge Recommendations Plan/Recommendations: Continue POC Treatment Plan/Plan of Care Patient would benefit from OT for education, treatment and training to promote independence in ADL's, mobility, safety and/or upper extremity function for ADL's. Plan of Care: ADL Retraining, Functional Mobility, Group Exercise/Act as Ind, UE Funct Exercise/Act Treatment Duration: Oct 08, 2020 Frequency: At least 5 of 7 days/Wk (IRF) Estimated Hrs Per Day: 1.5 hours per day Agreement: Yes Rehab Potential: Good Time/GCodes Start Time: 08:00 Stop Time: 09:00 Total Time Billed (hr/min): 60 Billed Treatment Time 1, ADL (15'), FA 3 (45') HARLEY LOCKE OT Sep 15, 2020 09:37
--- NOTE | 2020-09-15 10:04 | Physical Therapy Daily Note ---
PT Daily Note-Current Subjective Pt laying in bed upon arrival. Nurse had just given morning meds. Pain Numeric Pain Scale: 10-Worst Possible Pain Location: Left Location Body Site: Hip Pain Description: Sharp Mental Status Patient Orientation: Person, Confused, Place Transfers SCALE: Activities may be completed with or without assistive devices. 7-Tsfmqkangc-rctenad completes the activity by him/herself with no assistance from a helper. 5-Set-up or Clean-up Assistance-helper sets up or cleans up; patient completes activity. [place] assists only prior to or following the activity. 4-Supervision or Touching Assistance-helper provides verbal cues and/or touchi ng/steadying and/or contact guard assistance as patient completes activity. Assistance may be provided throughout the activity or intermittently. 3-Partial/Moderate Assistance-helper does LESS THAN HALF the effort. [place] lifts, holds or supports trunk or limbs, but provides less than half the effort. 2-Substantial/Maximal Assistance-helper does MORE THAN HALF the effort. [place] lifts or holds trunk or limbs and provides more than half the effort. 5-Wgmmwvrnk-wcmofw does ALL the effort. Patient does none of the effort to complete the activity. Or, the assistance of 2 or more helpers is required for the patient to complete the activity. If activity was not attempted, code reason: 7-Patient Refused. 9-Not Applicable-not attempted and the patient did not perform the activity before the current illness, exacerbation or injury. 10-Not Attempted due to Environmental Limitations-(lack of equipment, weather restraints, etc.). 88-Not Attempted due to Medical Conditions or Safety Concerns. Sit to Stand (QC): 1 Chair/Nkt-id-Brgwc Xfer(QC): 1 Weight Bearing Right Lower Extremity: Right Full Weight Bearing Left Lower Extremity: Left Weight Bearing/Tolerated Wheelchair Training Does the Pt Use a Wheelchair?: Yes Wheel 50 ft with 2 turns (QC): 2 Type of Wheelchair: Manual Exercises Seated Therapy Exercises: Reaching activity Treatments OT/PT cotreat due to skill of 2 clinicians required which a rehabilitation caseworker could not perform in order to decrease fall risk, address safety concerns, and due to pt's limitations in strength, activity tolerance, mobility, and endurance. OT focused on ADLs, UE placement, cues for sequencing and safety, while PT focused on LE placement, gross overall movement and transfers/mobility. Pt transferred supine to sit EOB, assist x2. Pt completed sponge bath at bed level, able to wash only upper body. Assist x2 to wash buttocks, then assist with periarea, and BLEs. Pt transferred supine to sit EOB, slow movements, assist x2. Pt transferred from EOB to w/c on L side, assist x2 as pt unable to come to stand. Pt propelled w/c around [facility] common area, required hand over hand assistance through doorways and turn. Pt had poor recall within tx, requiring step by step cues and hand over hand assistance with all turns. Once in therapy gym, pt took seated rest breaks, participated in UE reaching task, shifting weight while seated. Pt able to reach for cones using R hand, mod verbal cues. With reaching L hand, pt required max verbal cues. Pt had difficulty maintaining midline in sitting, leaning towards L side, mirror placed in front of pt and pt assisted to midline, she was then able to maintain position. Pt taken back to room, SPT to recliner, assist x2. A ttempted to scoot pt back in chair but pt unable to weight bear through BLEs, and difficulty with scooting. Post tx, pt seated in recliner, call light in reach and all needs met, legs elevated. Assessment Current Status: Fair Progress Pt is limited by pain and is more confused today, difficulty focusing and needing VC & TC for tasks. PT Short Term Goals Short Term Goals Time Frame: Sep 27, 2020 Sit to lyin Lying to sitting on side of be: 3 Sit to stand: 3 Walk 50 feet with two turns: 3 PT Mcfp Goals Relief Pilot Goals PT Relief Pilot Goals Time Frame: Oct 11, 2020 Roll Left & Right (QC): 6 Sit to Lying (QC): 6 Lying-Sitting on Side/Bed(QC): 6 Sit to Stand (QC): 6 Chair/Ryi-ye-Glvrm Xfer(QC): 6 Toilet Transfer (QC): 6 Car Transfer (QC): 5 Does the Patient Walk: No and Walking Goal IS indicated Walk 10 feet (QC): 6 Walk 50ft with 2 Turns (QC): 6 Walk 150 ft (QC): 6 Walking 10ft on Uneven Surface: 5 1 Step (curb) (QC): 6 4 Steps (QC): 6 12 Steps (QC): 9 Picking up an Object (QC): 4 Does the Pt use WC or Scooter?: No Wheel 50 feet with 2 turns (QC: 9 Wheel 150 feet: 9 PT Plan Problem List Problem List: Activity Tolerance, Functional Strength, Safety, Balance, Transfer Treatment/Plan Treatment Plan: Continue Plan of Care Treatment Plan: Bed Mobility, Education, Functional Activity Ruthie, Functional Strength, Group Therapy, Gait, Safety, Therapeutic Exercise, Transfers Treatment Duration: Oct 11, 2020 Frequency: At least 5 of 7 days/Wk (IRF) Estimated Hrs Per Day: 1.5 hours per day Patient and/or Family Agrees t: Yes Safety Risks/Education Patient Education: Transfer Techniques, Correct Positioning, W/C Management, Safety Issues Teaching Recipient: Patient Teaching Methods: Demonstration, Discussion Response to Teaching: Return Demonstration, Reinforcement Needed Time/GCodes Time In: 900 Time Out: 1000 Total Billed Treatment Time: 60 Total Billed Treatment 1, FA x2 (30m), WCH 15m) & EX (15m) HIMANSHU RODRIGUEZ OCEAN FORWARDER Sep 15, 2020 10:04
[2020-09-15] MEDS ORDERED: CLOPIDOGREL 75 MG (PLAVIX) TABLET PO NR (13:15)
[2020-09-15] MEDS ORDERED: ASPIRIN E.C. 81 MG (ECOTRIN) TAB PO NR (13:15)
--- NOTE | 2020-09-15 13:39 | Diagnostic Imaging Report ---
EXAMINATION: Right knee two views. HISTORY: Right knee pain. COMPARISON: None available. FINDINGS: The alignment is normal. No fracture is seen. Joint spaces are normal. There is no joint effusion. IMPRESSION: 1. No fracture. Dictated by: Dictated on workstation # [id number]
--- NOTE | 2020-09-15 14:34 | Therapy Group Daily Note ---
Therapy Daily Group Note Patient Education Topic Other List Below (memory) Exercises LE Seated Exercise, UE Exercise Session Ratio (pt:therapist): 4:1 Goal of Session: Memory Strategies, UE/LE Strengthing Goal Met for this Session: Yes Pt Benefit of Group: Contributions to Others, F/U Use of Strategies @Home, Increased Functional Safety, Increased Functional Strength, Improved Cognition, Recognition of Peers, Socialization Other/Notes Pt was transported via recliner to [facility] for OT/PT group. Group consisted of introductions (name, fun activity as child), socialization, B UE/LE exercises, memory strategies and memory tasks. Pt able to introduce self appropriately and actively listened to peers. Pt able to complete B UE/LE exercises with minimal modifications due to pain and weakness. Pt acknowledged understanding of memory strategies and verbalized own strategies for memory. Pt able to match 2 of 12 during memory activity. After group, pt reclined in chair with call light/phone in reach. All needs met in room. Start Time: 13:00 Stop Time: 14:00 Total Billed Treatment Time: 60 Total Billed Treatment 1-GRP SARABJIT SANDOVAL Sep 15, 2020 14:34
[2020-09-15] MEDS: BISACODYL 10 MG SUPP (DULCOLAX) PR PRN (17:09)
[2020-09-15] MEDS: FLEET ENEMA ADULT 1 EA BTL PR PRN (17:45)
[2020-09-15 20:30] VITALS: BP 139/82
[2020-09-15] MEDS: MELATONIN 3 MG TABLET PO PRN (21:01)
[2020-09-15] MEDS: SERTRALINE 50 MG (ZOLOFT) TABLET PO SCH (21:01)
[2020-09-16] MEDS: oxyCODONE/APAP 5/325MG (PERCOCET 5) TABLET PO PRN ×3 (02:17→13:45)
[2020-09-16] MEDS: inSUlin ASPART (NovoLOG) 1 UNIT/0.01 ML (CHARGE PER UNIT) SC SCH ×4 (06:23→20:54)
[2020-09-16 07:30] VITALS: BP 153/74
--- NOTE | 2020-09-16 08:04 | Progress Note ---
Standard Progress Note Progress Notes/Assess & Plan Date Seen by a Provider: Sep 16, 2020 Time Seen by a Provider: 08:03 Progress/Assessment & Plan c/o hip pain Incision clean and dry. No calf tenderness s/p L hip perc screws WB with walker patient reports she is going to "try harder" with PT/OT Final Diagnosis feeling better today R knee radiographs without acute findings Vital Signs Date Time Temp Pulse Resp B/P (MAP) Pulse Ox O2 Delivery O2 Flow Rate FiO2 09/16/20 07:30 36.8 73 14 153/74 (100) 95 Room Air 09/15/20 20:30 36.9 75 18 139/82 (101) 92 Room Air 09/15/20 20:30 93 Room Air 09/15/20 20:14 NIV CPAP 2.00 09/15/20 09:00 Room Air Laboratory Tests Test 09/15/20 10:54 09/15/20 17:07 09/15/20 20:48 09/16/20 06:06 Range/Units Glucometer 125 H 175 H 149 H 115 H 70-110 MG/DL LLE--dressing intact no calf tenderness s/p L hip perc screws Patient is very deconditioned and in poor overall health. Recovery expected to be slow FAUSTINO REAVES MD Sep 16, 2020 08:04
[2020-09-16] MEDS: NITROFURANTOIN 100 MG (MACROBID) CAPSULE PO SCH ×2 (08:17→19:44)
[2020-09-16] MEDS: LOSARTAN 100 MG (COZAAR) TABLET PO SCH (08:17)
[2020-09-16] MEDS: inSUlin (REGULAR) HUMAN 1 UNIT/0.01 ML (CHARGE PER UNIT) SC SCH ×3 (08:17→18:00)
[2020-09-16] MEDS: OXYBUTYNIN (DITROPAN) 5 MG TAB PO SCH ×2 (08:18→21:41)
[2020-09-16] MEDS: CLOPIDOGREL 75 MG (PLAVIX) TABLET PO SCH (08:18)
[2020-09-16] MEDS: ASPIRIN E.C. 81 MG (ECOTRIN) TAB PO SCH (08:18)
[2020-09-16] MEDS: ATENOLOL 25 MG (TENORMIN) TAB PO SCH (08:18)
[2020-09-16] MEDS: ALLOPURINOL 100 MG (ZYLOPRIM) TAB PO SCH (08:18)
[2020-09-16] MEDS: RANOLAZINE ER 500 MG TAB (RANEXA) PO SCH ×2 (08:19→21:41)
[2020-09-16] MEDS: PANTOPRAZOLE 40 MG (PROTONIX) TAB PO SCH (08:19)
[2020-09-16] MEDS: amLODIPine 5 MG (NORVASC) TAB PO SCH (08:19)
--- NOTE | 2020-09-16 08:37 | PM&R Progress Note ---
Subjective HPI/CC On Admission Date Seen by Provider: Sep 16, 2020 Time Seen by Provider: 13:00 Pt is a 65yoCF with a PMH of HTN, IDDMII, recent CVA who presented to the ER due to a fall and was found to have a displaced hip fracture. She underwent operative repair by Dr Villa. She normally resides at [facility] and is ambulating but have deficits from her recent CVA. She is being admitted to IRU for intensive therapy. Subjective/Events-last exam 09/16/2020: This visit is via video chat due to Covid related restriction for this provider Patient doing pretty well today Plavix and aspirin back on board Dr. Villa checked her right knee and everything looked okay probably bruised Voltaren gel will be attempted to put on the right knee to help her Bladder scan may be required since Leiva catheter discontinued and she may be retaining Standing in parallel bars today 09/15/2020: This visit is via video chat due to Covid related restriction for this provider Patient having a tough day Not moving around well 2-3 person assist today Plavix and ASA had been held since OR so will restart that because she is reported feeling like she is having TIA's Incontinent of bowel and bladder since DC catheter, she was having these issues before fall No BM since 09/10 so will give more meds 09/14/2020: This visit is via video chat due to Covid related restriction for this provider Patient settling in well Changed to a regular diet that is what she eats at home Creatinine stable at 1.6 with chronic kidney disease Delay in cognition per nursing staff but she seems to be doing pretty well today Having some knee pain on the right side unsure if she fell on it No bowels are moving yet last one was 09/10/2020 Check meds and labs Check Accu-Cheks Review of Systems General: Fatigue, Malaise Musculoskeletal: leg pain Neurological: Weakness, Incoordination Objective Exam Vital Signs Vital Signs Date Time Temp Pulse Resp B/P (MAP) Pulse Ox O2 Delivery O2 Flow Rate FiO2 09/16/20 20:20 Room Air 09/16/20 20:00 36.4 67 20 117/63 (81) 92 09/15/20 20:14 2.00 Capillary Refill : General Appearance: No Apparent Distress, WD/WN, Chronically ill, Obese HEENT: PERRL/EOMI, Normal ENT Inspection, Pharynx Normal, Moist Mucous Membranes Neck: Full Range of Motion, Normal Inspection, Non Tender Respiratory: Chest Non Tender, Lungs Clear, Normal Breath Sounds, No Accessory Muscle Use, No Respiratory Distress Cardiovascular: Regular Rate, Rhythm, No Edema, No Gallop, No JVD, No Murmur, Normal Peripheral Pulses Gastrointestinal: Normal Bowel Sounds, No Organomegaly, No Pulsatile Mass, Non Tender, Soft Back: Normal Inspection, No CVA Tenderness, No Vertebral Tenderness Extremity: Normal Capillary Refill, Normal Inspection, Normal Range of Motion (except left leg), Non Tender, No Calf Tenderness, No Pedal Edema Neurologic/Psychiatric: Alert, Oriented x3, No Motor/Sensory Deficits, clinical engineer II-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 FIM Transfers Therapy Code Descriptions/Definitions Functional [place] Measure: 0=Not Assessed/NA 4=Minimal Assistance 1=Total Assistance 5=Supervision or Setup 2=Maximal Assistance 6=Modified [place] 3=Moderate Assistance 7=Complete IndependenceSCALE: Activities may be completed with or without assistive devices. 1-Mdnkjsyvzs-zhlstdt completes the activity by him/herself with no assistance from a helper. 5-Set-up or Clean-up Assistance-helper sets up or cleans up; patient completes activity. [place] assists only prior to or following the activity. 4-Supervision or Touching Assistance-helper provides verbal cues and/or touching/steadying and/or contact guard assistance as patient completes activity. Assistance may be provided throughout the activity or intermittently. 3-Partial/Moderate Assistance-helper does LESS THAN HALF the effort. [place] lifts, holds or supports trunk or limbs, but provides less than half the effort. 2-Substantial/Maximal Assistance-helper does MORE THAN HALF the effort. [place] lifts or holds trunk or limbs and provides more than half the effort. 4-Mchtixhte-yfbtiv does ALL the effort. Patient does none of the effort to complete the activity. Or, the assistance of 2 or more helpers is required for the patient to complete the activity. If activity was not attempted, code reason: 7-Patient Refused. 9-Not Applicable-not attempted and the patient did not perform the activity before the current illness, exacerbation or injury. 10-Not Attempted due to Environmental Limitations-(lack of equipment, weather restraints, etc.). 88-Not Attempted due to Medical Conditions or Safety Concerns. Roll Left to Right (QC): 1 Sit to Lying (QC): 1 Sit to Stand (QC): 1 Chair/Wnq-ot-Uariq Xfer(QC): 1 Car Transfer (QC): 88 (unsafe to attempt this date. ) Gait Training Does the Patient Walk?: No and Walking Goal IS indicated Walk 10 feet (QC): 88 Walk 50 ft with 2 Turns(QC): 88 Walk 150 ft (QC): 88 Walking 10ft/uneven surface-QC: 88 Wheelchair Training Does the Pt Use a Wheelchair?: Yes Wheel 50 ft with 2 turns (QC): 2 Wheel 150 ft (QC): 9 Type of Wheelchair: Manual Stair Training 1 Step (curb) (QC): 88 4 Steps (QC): 88 12 Steps (QC): 88 Balance Picking up an Object (QC): 88 ADL-Treatment Eating (QC): 5 Oral Hygiene (QC): 5 (based on clincial judgement, set up assist seated.) Shower/Bathe Self (QC): 1 (assist x2 to wash buttocks. Pt able to wash upper body, assist with buttocks, periarea, and BLEs) Upper Body Dressing (QC): 4 (based on clincial judgement, CGA with task.) Lower Body Dressing (QC): 1 (based on clinical judgement, assist x2 for pant hike) On/Off Footwear (QC): 1 (based on clincial judgement, pt would require total assistance.) Toileting Hygiene (QC): 1 (based on clincial judgement, Pt would require assist x2 in stand, assist with all parts.) Assessment/Plan Assessment and Plan Assess & Plan/Chief Complaint REHAB/MEDICAL ASSESSMENT AND PLAN: REHAB IMPAIRMENT GROUP: Left femur fracture ETIOLOGIC DIAGNOSIS: Left femur fracture The comorbidities that impact the patients function and/or functional outcome by: severe DM, inoperable CAD, CRI, HTN, gastroparesis, CVA hx REHAB PLAN: The patient is being admitted to our comprehensive inpatient rehabilitation facility and can tolerate the intensity of service consisting of at least: 180 minutes of therapy a day, 5 out of 7 days a week Rehab treatment will consist of: PT and OT will focus on left extremity pain with requirements to increase ADLs and ambulation in order to return to independent living The patient/family has a good understanding of our discharge process and will benefit from an interdisciplinary inpatient rehabilitation program. The patient has potential to make improvement and is in need of at least two of the following multidisciplinary therapies including but not limited to physical, occupational, speech, and prosthetics and orthotics. Additionally the patient will need services from respiratory, nutritional services, wound care, psychology, etc. (Customize this to each patient). Given the patients complex condition and risk of further medical complications, rehabilitation services cannot be safely or effectively provided at a lower level of care such as a jail facility. BARRIERS TO DISCHARGE: Lives alone previously ESTIMATED LOS: 10 days DISPOSITION: Home with home care? RELEVANT CHANGES SINCE PREADMISSION SCREENING: I have compared the patients medical and functional status at the time of the preadmission screening and there are: no changes PROGNOSIS: Fair REHABILITATION GOALS: 1. PT and OT will focus on left lower extremity pain and decreased ROM with requirements to increase ADLs and ambulation in order to return to independent living All the above goals were reviewed with the patient and he/she is in agreement. By signing this document, I acknowledge that I have personally performed a full physical examination on this patient within 24 hours of admission to this inpatient rehabilitation facility and have determined the patient to be able to tolerate the above course of treatment at an intensive level for a reasonable period of time. I will be completing a detailed individualized Plan of Care for this patient by day #4 of the patients stay based upon the Preadmission Screen, the Post-Admission Evaluation, and the therapy evaluations. Assessment: Left femur fracture s/p repair Post op anemia h/o right sided weakness with facial droop not a tPa candidate per Stroke center [facility] MRI inconclusive for CVA 03/07/20 s/p CVA w/residual left facial droop and left upper and lower extremity weakness August 2018 IRF course DM poorly controlled CAD inoperable multi-vessel disease declined heart transplant at [facility] 2014 HTN HLP CRI Insomnia GERD Gastroparesis OP Neuropathy Hypoglycemia episodes ANNIE on CPAP Plan: Rehab protocol Insulin Pain control 09/14/2020: Pain control Change diet to regular diet Monitor closely 09/15/20: Monitor bowel and bladder CPAP Plavix and ASA restarted 09/16/2020: Monitor closely Monitor insulin with hypoglycemia Voltaren gel to the right knee (1) Fall Status: Acute (2) Closed left hip fracture Status: Acute (3) Hyperglycemia due to diabetes mellitus Status: Acute (4) Left hemiparesis (5) CVA (cerebral vascular accident) (6) Gastroparesis (7) Hypertension Status: Acute (8) GERD (gastroesophageal reflux disease) (9) Weakness Status: Acute (10) Renal insufficiency (11) Neuropathy (12) Hyperlipemia (13) CAD (coronary artery disease) (14) Osteoporosis (15) Diabetes mellitus (16) Insomnia (17) Facial droop as late effect of cerebrovascular accident (CVA) JAG KIRKLAND DO Sep 16, 2020 08:37
[2020-09-16] MEDS: DOCUSATE SODIUM 100 MG (COLACE) CAP PO SCH ×2 (08:50→20:55)
[2020-09-16] MEDS: polyethylene glycoL POWDER 17 GM (MIRALAX) PACK PO SCH ×2 (08:50→20:55)
[2020-09-16] MEDS: SENNA W/DOCUSATE (SENOKOT S) TABLET PO SCH ×2 (08:50→20:55)
--- NOTE | 2020-09-16 09:19 | Occupational Ther Daily Note ---
OT Current Status-Daily Note Subjective Pt up in recliner, agreeable to OT/PT cotreat. Reports pain 8/10 in L hip Mental Status/Objective Patient Orientation: Person, Place, Situation ADL-Treatment Therapy Code Descriptions/Definitions Functional [place] Measure: 0=Not Assessed/NA 4=Minimal Assistance 1=Total Assistance 5=Supervision or Setup 2=Maximal Assistance 6=Modified [place] 3=Moderate Assistance 7=Complete IndependenceSCALE: Activities may be completed with or without assistive devices. 0-Rskzogdrih-gfnouog completes the activity by him/herself with no assistance f rom a helper. 5-Set-up or Clean-up Assistance-helper sets up or cleans up; patient completes activity. Adah assists only prior to or following the activity. 4-Supervision or Touching Assistance-helper provides verbal cues and/or touching/steadying and/or contact guard assistance as patient completes activity. Assistance may be provided throughout the activity or intermittently. 3-Partial/Moderate Assistance-helper does LESS THAN HALF the effort. Adah lifts, holds or supports trunk or limbs, but provides less than half the effort. 2-Substantial/Maximal Assistance-helper does MORE THAN HALF the effort. Adah lifts or holds trunk or limbs and provides more than half the effort. 6-Zvzawpjxr-zmejxz does ALL the effort. Patient does none of the effort to complete the activity. Or, the assistance of 2 or more helpers is required for the patient to complete the activity. If activity was not attempted, code reason: 7-Patient Refused. 9-Not Applicable-not attempted and the patient did not perform the activity before the current illness, exacerbation or injury. 10-Not Attempted due to Environmental Limitations-(lack of equipment, weather restraints, etc.). 88-Not Attempted due to Medical Conditions or Safety Concerns. Oral Hygiene (QC): 5 (set up at tray table.) Other Treatment [id number] OT/PT cotreat due to skill of 2 clinicians required which a animal rehabilitator could not perform in order to decrease fall risk, address safety concerns, and due to pt's limitations in strength, activity tolerance, mobility, and endurance. OT focused on ADLs, UE placement, cues for sequencing and safety, while PT focused on LE placement, gross overall movement and transfers/mobility. Pt transferred from recliner to w/c, assist x2. Pt propelled w/c to therapy gym, moderate verbal cues for proper techniques with turns and min A with turns/doorways, she did not require hand over hand assistance today. Pt stood in parallel bars x3 trials, assist x2 required. Pt able to maintain stand ~5-10 seconds, then requests to sit down. Pt completed UE/LE exercises, x15 reps shoulder flexion. She propelled w/c back to room, transferring to recliner, assist x2. [id number] OT tx. Pt washed face and brushed teeth with set up assistance, pt thorough with task taking increased time. Post tx, pt seated in recliner, call light in reach and all needs met. Education OT Patient Education: Correct positioning, Modified ADL techniques, Progress toward Goal/Update tx plan, Purpose of tx/functional activities, Rehab process Teaching Recipient: Patient Teaching Methods: Discussion Response to Teaching: Verbalize Understanding OT Short Term Goals Short Term Goals Time Frame: Sep 24, 2020 Toileting hygiene: 3 Lower body dressin Putting on/taking off footwear: 3 OT Assisted Goals Assisted Goals Time Frame: Oct 08, 2020 Eating (QC): 6 Oral Hygiene (QC): 6 Toileting Hygiene (QC): 4 Shower/Bathe Self (QC): 4 Upper Body Dressing (QC): 5 Lower Body Dressing (QC): 4 On/Off Footwear (QC): 4 Additional Goals: 1-Demonstrate ADL Tasks, 2-Verbalize Understanding, 3- ImproveStrength/Ruthie 1=Demonstrate adherence to instructed precautions during ADL tasks. 2=Patient will verbalize/demonstrate understanding of assistive devices/m odifications for ADL. 3=Patient will improve strength/tolerance for activity to enable patient to perform ADL's. OT Education/Plan Problem List/Assessment Assessment: Decreased Activ Tolerance, Decreased UE Strength, Dependent Transfers, Impaired Bed Mobility, Impaired Funct Balance, Impaired I ADL's, Impaired Self-Care Skills Discharge Recommendations Plan/Recommendations: Continue POC Treatment Plan/Plan of Care Patient would benefit from OT for education, treatment and training to promote independence in ADL's, mobility, safety and/or upper extremity function for ADL's. Plan of Care: ADL Retraining, Functional Mobility, Group Exercise/Act as Ind, UE Funct Exercise/Act Treatment Duration: Oct 08, 2020 Frequency: At least 5 of 7 days/Wk (IRF) Estimated Hrs Per Day: 1.5 hours per day Agreement: Yes Rehab Potential: Good Time/GCodes Start Time: 08:00 Stop Time: 09:15 Total Time Billed (hr/min): 75 Billed Treatment Time cotreat x60', OT tx x15' 1, FA 4 (60'), ADL (15') HARLEY LOCKE OT Sep 16, 2020 09:19
--- NOTE | 2020-09-16 09:53 | Cardiology Progress Note ---
Subjective Date Seen by Provider: Sep 16, 2020 Time Seen by Provider: 09:52 Subjective/Events-last exam Patient was seen at bedside, sitting comfortably, no new complaint Review of Systems General: No Chills, No Night Sweats, No Fatigue, No Malaise, No Appetite, No Other HEENT: No Head Aches, No Visual Changes, No Eye Pain, No Ear Pain, No Dysphasia, No Sinus Congestion, No Post Nasal Drip, No Sore Throat, No Other Pulmonary: No Dyspnea, No Cough, No Pleuritic Chest Pain, No Other Cardiovascular: No: Chest Pain, Palpitations, Orthopnea, Paroxysmal Noc. Dyspnea, Edema, Lt Headedness, Other Objective-Cardiology Exam Last Set of Vital Signs Vital Signs 09/15/20 09/16/20 20:14 07:30 Temp 36.8 Pulse 73 Resp 14 B/P (MAP) 153/74 (100) Pulse Ox 95 O2 Delivery Room Air O2 Flow Rate 2.00 General: Alert, Oriented X3, Cooperative HEENT: Atraumatic, PERRLA Neck: Supple, No JVD, No Thyromegaly Lungs: Clear to Auscultation, Normal Air Movement Heart: Regular Rate, Normal S1, Normal S2, No Murmurs Abdomen: Normal Bowel Sounds, Soft, No Tenderness, No Hepatosplenomegaly, No Masses Extremities: Other (trace BLE) Skin: No Rashes Neuro: Normal Speech, Cranial Nerves 3-12 NL Psych/Mental Status: Mental Status NL A/P-Cardiology Admission Diagnosis Left hip fx CAD CVA HTN Assessment/Plan Left hip surgery, status post repair with screw done by Dr. REAVES on September 10, 2020, doing well. Recovering well. Coronary artery disease, extensive disease, known to have severe LAD stenosis at multiple segment and the artery tapered down into very small artery, severe circumflex artery distally, severe ramus intermedius artery stenosis proximally, severe stenosis in the right coronary artery, patient was referred to [facility], seen by Dr. Wesley and deemed inoperable again, she was referred to [place] for evaluation for possible heart transplant due to her extensive heart disease, transplant was not recommended. Has been receiving medical treatment only. Tolerated surgery well. Continue to monitor Hx CVA in 2018 and TIA in Mar 2020, unknown etiology. Was maintained on Plavix as outpatient. Currently on hold secondary to hip surgery and recent fall with facial hematoma History of supraventricular tachycardia and palpitation, has been stable. Chest pain, chronic stable angina, treated conservatively, currently not having any active chest pain History of allergy to HALEIGH inhibitor with cough. Hypertension, amlodipine started yesterday in addition to other medications, continue on current medication monitor blood pressure Hyperlipidemia, monitor lipids Diabetes mellitus, managed and followed by primary care physician Chronic renal insufficiency. Managed and followed by primary care physician. History of vitamin D deficiency History of kyphoplasty done about 3 years ago BRITTANY POOL MD Sep 16, 2020 09:53
--- NOTE | 2020-09-16 10:11 | Physical Therapy Daily Note ---
PT Daily Note-Current Subjective Pt sitting in recliner upon arrival. Pt agrees to PT/OT co-treat, reports pain is 8/10. Pain Numeric Pain Scale: 8 Location: Left Location Body Site: Hip Pain Description: Sharp Comment: Pain with movement debra. transfers, pain med given by Nurse. Mental Status Patient Orientation: Person, Place, Time, Situation Transfers SCALE: Activities may be completed with or without assistive devices. 8-Jfwgbdfpkx-uilbdtg completes the activity by him/herself with no assistance from a helper. 5-Set-up or Clean-up Assistance-helper sets up or cleans up; patient completes activity. Palmer assists only prior to or following the activity. 4-Supervision or Touching Assistance-helper provides verbal cues and/or touching/steadying and/or contact guard assistance as patient completes activity. Assistance may be provided throughout the activity or intermittently. 3-Partial/Moderate Assistance-helper does LESS THAN HALF the effort. Palmer lifts, holds or supports trunk or limbs, but provides less than half the effort. 2-Substantial/Maximal Assistance-helper does MORE THAN HALF the effort. Palmer lifts or holds trunk or limbs and provides more than half the effort. 0-Smclablvv-peekbl does ALL the effort. Patient does none of the effort to comp lete the activity. Or, the assistance of 2 or more helpers is required for the patient to complete the activity. If activity was not attempted, code reason: 7-Patient Refused. 9-Not Applicable-not attempted and the patient did not perform the activity before the current illness, exacerbation or injury. 10-Not Attempted due to Environmental Limitations-(lack of equipment, weather restraints, etc.). 88-Not Attempted due to Medical Conditions or Safety Concerns. Sit to Stand (QC): 1 Weight Bearing Right Lower Extremity: Right Full Weight Bearing Left Lower Extremity: Left Weight Bearing/Tolerated Wheelchair Training Does the Pt Use a Wheelchair?: Yes Wheel 50 ft with 2 turns (QC): 4 Wheel 150 ft (QC): 4 Type of Wheelchair: Manual Exercises Seated Therapy Exercises: Sit to stand Seated Reps: 3 Treatments [id number] OT/PT cotreat due to skill of 2 clinicians required which a photo technician could not perform in order to decrease fall risk, address safety concerns, and due to pt's limitations in strength, activity tolerance, mobility, and endurance. OT focused on ADLs, UE placement, cues for sequencing and safety, while PT focused on LE placement, gross overall movement and transfers/mobility. Pt transferred from recliner to w/c, assist x2. Pt propelled w/c to therapy gym, moderate verbal cues for proper techniques with turns and min A with turns/doorways, she did not require hand over hand assistance today. Pt stood in parallel bars x3 trials, assist x2 required. Pt able to maintain stand ~5-10 seconds, then requests to sit down. Pt completed UE/LE exercises, x15 reps shoulder flexion. She propelled w/c back to room, transferring to recliner, assist x2. Assessment Current Status: Good Progress Pt is less confused and improved sitting balance and focus during tx. today. Pt reports pain with movement which limits tx. PT Short Term Goals Short Term Goals Time Frame: Sep 27, 2020 Sit to lyin Lying to sitting on side of be: 3 Sit to stand: 3 Walk 50 feet with two turns: 3 PT Long-Term Goals Ordnance Engineer Goals PT Long-Term Goals Time Frame: Oct 11, 2020 Roll Left & Right (QC): 6 Sit to Lying (QC): 6 Lying-Sitting on Side/Bed(QC): 6 Sit to Stand (QC): 6 Chair/Pql-gt-Kmohv Xfer(QC): 6 Toilet Transfer (QC): 6 Car Transfer (QC): 5 Does the Patient Walk: No and Walking Goal IS indicated Walk 10 feet (QC): 6 Walk 50ft with 2 Turns (QC): 6 Walk 150 ft (QC): 6 Walking 10ft on Uneven Surface: 5 1 Step (curb) (QC): 6 4 Steps (QC): 6 12 Steps (QC): 9 Picking up an Object (QC): 4 Does the Pt use WC or Scooter?: No Wheel 50 feet with 2 turns (QC: 9 Wheel 150 feet: 9 PT Plan Problem List Problem List: Activity Tolerance, Functional Strength, Safety, Balance, Transfer Treatment/Plan Treatment Plan: Continue Plan of Care Treatment Plan: Bed Mobility, Education, Functional Activity Ruthie, Functional Strength, Group Therapy, Gait, Safety, Therapeutic Exercise, Transfers Treatment Duration: Oct 11, 2020 Frequency: At least 5 of 7 days/Wk (IRF) Estimated Hrs Per Day: 1.5 hours per day Patient and/or Family Agrees t: Yes Safety Risks/Education Patient Education: Transfer Techniques, Correct Positioning, W/C Management, Safety Issues Teaching Recipient: Patient Teaching Methods: Demonstration, Discussion Response to Teaching: Verbalize Understanding, Return Demonstration Time/GCodes Time In: 800 Time Out: 900 Total Billed Treatment Time: 60 Total Billed Treatment Co-treat for 60m 1, FA x2 (30m), [facility] (15m) & EX (15m) HIMANSHU RODRIGUEZ TRIMMER MACHINE OPERATOR Sep 16, 2020 10:11
--- NOTE | 2020-09-16 10:42 | Speech Therapy Daily Note ---
Speech Daily Progress Note Subjective Date Seen by Provider: Sep 16, 2020 Time Seen by Provider: 00:30 Patient was resting in her recliner following her other therapies. Patient was much more alert and feeling better today. Objective Patient answered questions related to current needs and daily routine at 75% with min to mod cues. Assessment Assessment Current Status: Good Progress Treatment Plan Continue Plan of Care Speech Short Term Goals Short Term Goals Short Term Goals 1) Patient will complete a series of cognitive tasks related to safety awareness for her daily needs at 80% or greater with minimal tasks. 2) Patient will utilize memory strategies as trained for daily routine at 80% or greater with minimal tasks. Speech Grab Jack Worker Goals Grab Jack Worker Goals Patient will improve cognitive function and safety awareness in order to return to SNF with higher level of function. Speech-Plan Patient/Family Goals Patient/Family Goals: Patient plans on returning to [facility] upon discharge. Treatment Plan Speech Therapy Treatment Plan: Continue Plan of Care Treatment Duration: Sep 24, 2020 Frequency: 4 times per week (Patient will receive skilled ST 4-5x per week) Estimated Hrs Per Day: .5 hour per day (Patient will receive skilled ST 4-5x per week) Rehab Potential: Good Barriers to Learning: Patient's decline in medical status, cognitive deficits Pt/Family Agrees to Plan: Yes Safety Risks/Education Teaching Recipient: Patient Teaching Methods: Demonstration, Discussion Response to Teaching: Verbalize Understanding, Return Demonstration Education Topics Provided: Continued safety and communication Time Speech Therapy Time In: 10:30 Speech Therapy Time Out: 11:00 Total Billed Time: 30 Billed Treatment Time 1, NESS Coon Sep 16, 2020 10:42
[2020-09-16] MEDS: DICLOFENAC 1% GEL 100 GM (VOLTAREN) TUBE TOP SCH ×3 (13:45→21:45)
--- NOTE | 2020-09-16 13:56 | Physical Therapy Daily Note ---
PT Daily Note-Current Subjective Pt sitting in recliner upon arrival. Pt agrees to PT. Pt asks for BSC before transferring to bed. Pain Numeric Pain Scale: 8 Location: Left Location Body Site: Hip Pain Description: Ache Mental Status Patient Orientation: Person, Place Transfers SCALE: Activities may be completed with or without assistive devices. 5-Mxslfvqngg-efkhviv completes the activity by him/herself with no assistance from a helper. 5-Set-up or Clean-up Assistance-helper sets up or cleans up; patient completes activity. [place]ron assists only prior to or following the activity. 4-Supervision or Touching Assistance-helper provides verbal cues and/or touch ing/steadying and/or contact guard assistance as patient completes activity. Assistance may be provided throughout the activity or intermittently. 3-Partial/Moderate Assistance-helper does LESS THAN HALF the effort. Capron lifts, holds or supports trunk or limbs, but provides less than half the effort. 2-Substantial/Maximal Assistance-helper does MORE THAN HALF the effort. Capron lifts or holds trunk or limbs and provides more than half the effort. 4-Zdmxyzxkq-fhppei does ALL the effort. Patient does none of the effort to complete the activity. Or, the assistance of 2 or more helpers is required for the patient to complete the activity. If activity was not attempted, code reason: 7-Patient Refused. 9-Not Applicable-not attempted and the patient did not perform the activity before the current illness, exacerbation or injury. 10-Not Attempted due to Environmental Limitations-(lack of equipment, weather restraints, etc.). 88-Not Attempted due to Medical Conditions or Safety Concerns. Sit to Stand (QC): 1 Toilet Transfer (QC): 1 Weight Bearing Right Lower Extremity: Right Full Weight Bearing Left Lower Extremity: Left Weight Bearing/Tolerated Treatments TF from recliner to BSC with Max A x2. After finishing, Pt TF to EOB after a couple of attempts. Pt is fatigued. PT returns to bed at end of tx. All needs met & NEWSPAPER EDITOR present. Assessment Current Status: Good Progress Pt is scared of falling and pain as well as fear limit tx. PT Short Term Goals Short Term Goals Time Frame: Sep 27, 2020 Sit to lyin Lying to sitting on side of be: 3 Sit to stand: 3 Walk 50 feet with two turns: 3 PT Milk Pasteurizer Goals Mcc Goals PT Mcc Goals Time Frame: Oct 11, 2020 Roll Left & Right (QC): 6 Sit to Lying (QC): 6 Lying-Sitting on Side/Bed(QC): 6 Sit to Stand (QC): 6 Chair/Qaj-tm-Wyxua Xfer(QC): 6 Toilet Transfer (QC): 6 Car Transfer (QC): 5 Does the Patient Walk: No and Walking Goal IS indicated Walk 10 feet (QC): 6 Walk 50ft with 2 Turns (QC): 6 Walk 150 ft (QC): 6 Walking 10ft on Uneven Surface: 5 1 Step (curb) (QC): 6 4 Steps (QC): 6 12 Steps (QC): 9 Picking up an Object (QC): 4 Does the Pt use WC or Scooter?: No Wheel 50 feet with 2 turns (QC: 9 Wheel 150 feet: 9 PT Plan Problem List Problem List: Activity Tolerance, Functional Strength, Safety, Balance, Transfer Treatment/Plan Treatment Plan: Continue Plan of Care Treatment Plan: Bed Mobility, Education, Functional Activity Ruthie, Functional Strength, Group Therapy, Gait, Safety, Therapeutic Exercise, Transfers Treatment Duration: Oct 11, 2020 Frequency: At least 5 of 7 days/Wk (IRF) Estimated Hrs Per Day: 1.5 hours per day Patient and/or Family Agrees t: Yes Safety Risks/Education Patient Education: Transfer Techniques, Correct Positioning, Safety Issues Teaching Recipient: Patient Teaching Methods: Discussion Response to Teaching: Reinforcement Needed Time/GCodes Time In: 1300 Time Out: 1325 Total Billed Treatment Time: 25 Total Billed Treatment 1, FA x2 (25m) HIMANSHU RODRIGUEZ PHYSICIAN INTERNIST Sep 16, 2020 13:56
[2020-09-16 20:00] VITALS: BP 117/63
[2020-09-16] MEDS: SERTRALINE 50 MG (ZOLOFT) TABLET PO SCH (21:41)
[2020-09-16] MEDS: MELATONIN 3 MG TABLET PO PRN (21:41)
[2020-09-17] MEDS: inSUlin ASPART (NovoLOG) 1 UNIT/0.01 ML (CHARGE PER UNIT) SC SCH ×4 (05:20→21:02)
[2020-09-17] MEDS: inSUlin (REGULAR) HUMAN 1 UNIT/0.01 ML (CHARGE PER UNIT) SC SCH ×3 (07:32→17:14)
[2020-09-17 08:00] VITALS: BP 165/79
[2020-09-17 08:04] VITALS: BP 165/79
--- NOTE | 2020-09-17 08:05 | PM&R Progress Note ---
Subjective HPI/CC On Admission Date Seen by Provider: Sep 17, 2020 Time Seen by Provider: 13:00 Pt is a 65yoCF with a PMH of HTN, IDDMII, recent CVA who presented to the ER due to a fall and was found to have a displaced hip fracture. She underwent operative repair by Dr Villa. She normally resides at [facility] and is ambulating but have deficits from her recent CVA. She is being admitted to IRU for intensive therapy. Subjective/Events-last exam 09/17/2020: This visit is via video chat due to Covid related restriction for this provider Patient doing pretty well Holding insulin for sugar less than 135 to prevent hypoglycemia Voiding pretty well 300-400 cc at a time Increased pain with therapy but she is doing a lot better today 09/16/2020: This visit is via video chat due to Covid related restriction for this provider Patient doing pretty well today Plavix and aspirin back on board Dr. Villa checked her right knee and everything looked okay probably bruised Voltaren gel will be attempted to put on the right knee to help her Bladder scan may be required since Leiva catheter discontinued and she may be retaining Standing in parallel bars today 09/15/2020: This visit is via video chat due to Covid related restriction for this provider Patient having a tough day Not moving around well 2-3 person assist today Plavix and ASA had been held since OR so will restart that because she is reported feeling like she is having TIA's Incontinent of bowel and bladder since DC catheter, she was having these issues before fall No BM since 09/10 so will give more meds 09/14/2020: This visit is via video chat due to Covid related restriction for this provider Patient settling in well Changed to a regular diet that is what she eats at home Creatinine stable at 1.6 with chronic kidney disease Delay in cognition per nursing staff but she seems to be doing pretty well today Having some knee pain on the right side unsure if she fell on it No bowels are moving yet last one was 09/10/2020 Check meds and labs Check Accu-Cheks Review of Systems General: Fatigue, Malaise Musculoskeletal: leg pain Objective Exam Vital Signs Vital Signs Date Time Temp Pulse Resp B/P (MAP) Pulse Ox O2 Delivery O2 Flow Rate FiO2 7/16/21 20:45 Room Air 09/17/20 19:48 36.6 70 20 143/83 (189) 95 09/15/20 20:14 2.00 Capillary Refill : General Appearance: No Apparent Distress, WD/WN, Chronically ill, Obese HEENT: PERRL/EOMI, Normal ENT Inspection, Pharynx Normal, Moist Mucous Membranes Neck: Full Range of Motion, Normal Inspection, Non Tender Respiratory: Chest Non Tender, Lungs Clear, Normal Breath Sounds, No Accessory Muscle Use, No Respiratory Distress Cardiovascular: Regular Rate, Rhythm, No Edema, No Gallop, No JVD, No Murmur, Normal Peripheral Pulses Gastrointestinal: Normal Bowel Sounds, No Organomegaly, No Pulsatile Mass, Non Tender, Soft Back: Normal Inspection, No CVA Tenderness, No Vertebral Tenderness Extremity: Normal Capillary Refill, Normal Inspection, Normal Range of Motion (except left leg), Non Tender, No Calf Tenderness, No Pedal Edema Neurologic/Psychiatric: Alert, Oriented x3, No Motor/Sensory Deficits, 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 FIM Transfers Therapy Code Descriptions/Definitions Functional [place] Measure: 0=Not Assessed/NA 4=Minimal Assistance 1=Total Assistance 5=Supervision or Setup 2=Maximal Assistance 6=Modified [place] 3=Moderate Assistance 7=Complete IndependenceSCALE: Activities may be completed with or without assistive devices. 9-Jutwxxniuf-gsnszfp completes the activity by him/herself with no assistance from a helper. 5-Set-up or Clean-up Assistance-helper sets up or cleans up; patient completes activity. [place] assists only prior to or following the activity. 4-Supervision or Touching Assistance-helper provides verbal cues and/or jeffery quintin/steadying and/or contact guard assistance as patient completes activity. Assistance may be provided throughout the activity or intermittently. 3-Partial/Moderate Assistance-helper does LESS THAN HALF the effort. [place] lifts, holds or supports trunk or limbs, but provides less than half the effort. 2-Substantial/Maximal Assistance-helper does MORE THAN HALF the effort. [place] lifts or holds trunk or limbs and provides more than half the effort. 1-Hbhddrgwd-xvmlxr does ALL the effort. Patient does none of the effort to complete the activity. Or, the assistance of 2 or more helpers is required for the patient to complete the activity. If activity was not attempted, code reason: 7-Patient Refused. 9-Not Applicable-not attempted and the patient did not perform the activity before the current illness, exacerbation or injury. 10-Not Attempted due to Environmental Limitations-(lack of equipment, weather restraints, etc.). 88-Not Attempted due to Medical Conditions or Safety Concerns. Roll Left to Right (QC): 1 Sit to Lying (QC): 1 Sit to Stand (QC): 1 Chair/Pgl-lt-Gok[place] Xfer(QC): 1 Car Transfer (QC): 88 (unsafe to attempt this date. ) Gait Training Does the Patient Walk?: No and Walking Goal IS indicated Walk 10 feet (QC): 88 Walk 50 ft with 2 Turns(QC): 88 Walk 150 ft (QC): 88 Walking 10ft/uneven surface-QC: 88 Wheelchair Training Does the Pt Use a Wheelchair?: Yes Wheel 50 ft with 2 turns (QC): 4 Wheel 150 ft (QC): 4 Type of Wheelchair: Manual Stair Training 1 Step (curb) (QC): 88 4 Steps (QC): 88 12 Steps (QC): 88 Balance Picking up an Object (QC): 88 ADL-Treatment Eating (QC): 5 Oral Hygiene (QC): 5 (set up at tray table.) Shower/Bathe Self (QC): 1 (assist x2 to wash buttocks. Pt able to wash upper body, assist with buttocks, periarea, and BLEs) Upper Body Dressing (QC): 4 (based on clincial judgement, CGA with task.) Lower Body Dressing (QC): 1 (based on clinical judgement, assist x2 for pant hike) On/Off Footwear (QC): 1 (based on clincial judgement, pt would require total assistance.) Toileting Hygiene (QC): 1 (based on clincial judgement, Pt would require assist x2 in stand, assist with all parts.) Assessment/Plan Assessment and Plan Assess & Plan/Chief Complaint REHAB/MEDICAL ASSESSMENT AND PLAN: REHAB IMPAIRMENT GROUP: Left femur fracture ETIOLOGIC DIAGNOSIS: Left femur fracture The comorbidities that impact the patients function and/or functional outcome by: severe DM, inoperable CAD, CRI, HTN, gastroparesis, CVA hx REHAB PLAN: The patient is being admitted to our comprehensive inpatient rehabilitation facility and can tolerate the intensity of service consisting of at least: 180 minutes of therapy a day, 5 out of 7 days a week Rehab treatment will consist of: PT and OT will focus on left extremity pain with requirements to increase ADLs and ambulation in order to return to independent living The patient/family has a good understanding of our discharge process and will benefit from an interdisciplinary inpatient rehabilitation program. The patient has potential to make improvement and is in need of at least two of the following multidisciplinary therapies including but not limited to physical, occupational, speech, and prosthetics and orthotics. Additionally the patient will need services from respiratory, nutritional services, wound care, psychology, etc. (Customize this to each patient). Given the patients complex condition and risk of further medical complications, rehabilitation services cannot be safely or effectively provided at a lower level of care such as a custodial facility. BARRIERS TO DISCHARGE: Lives alone previously ESTIMATED LOS: 10 days DISPOSITION: Home with home care? RELEVANT CHANGES SINCE PREADMISSION SCREENING: I have compared the patients medical and functional status at the time of the preadmission screening and there are: no changes PROGNOSIS: Fair REHABILITATION GOALS: 1. PT and OT will focus on left lower extremity pain and decreased ROM with requirements to increase ADLs and ambulation in order to return to independent living All the above goals were reviewed with the patient and he/she is in agreement. By signing this document, I acknowledge that I have personally performed a full physical examination on this patient within 24 hours of admission to this inpatient rehabilitation facility and have determined the patient to be able to tolerate the above course of treatment at an intensive level for a reasonable period of time. I will be completing a detailed individualized Plan of Care for this patient by day #4 of the patients stay based upon the Preadmission Screen, the Post-Admission Evaluation, and the therapy evaluations. Assessment: Left femur fracture s/p repair Post op anemia h/o right sided weakness with facial droop not a tPa candidate per Stroke center [facility] MRI inconclusive for CVA 03/07/20 s/p CVA w/residual left facial droop and left upper and lower extremity weakness August 2018 IRF course DM poorly controlled CAD inoperable multi-vessel disease declined heart transplant at [facility] 2014 HTN HLP CRI Insomnia GERD Gastroparesis OP Neuropathy Hypoglycemia episodes ANNIE on CPAP Plan: Rehab protocol Insulin Pain control 09/14/2020: Pain control Change diet to regular diet Monitor closely 09/15/20: Monitor bowel and bladder CPAP Plavix and ASA restarted 09/16/2020: Monitor closely Monitor insulin with hypoglycemia Voltaren gel to the right knee 09/17/2020: Bowel regimen Monitor voiding Pain control (1) Fall Status: Acute (2) Closed left hip fracture Status: Acute (3) Hyperglycemia due to diabetes mellitus Status: Acute (4) Left hemiparesis (5) CVA (cerebral vascular accident) (6) Gastroparesis (7) Hypertension Status: Acute (8) GERD (gastroesophageal reflux disease) (9) Weakness Status: Acute (10) Renal insufficiency (11) Neuropathy (12) Hyperlipemia (13) CAD (coronary artery disease) (14) Osteoporosis (15) Diabetes mellitus (16) Insomnia (17) Facial droop as late effect of cerebrovascular accident (CVA) JAG KIRKLAND DO Sep 17, 2020 08:05
--- NOTE | 2020-09-17 08:19 | Speech Therapy Daily Note ---
Speech Daily Progress Note Subjective Date Seen by Provider: Sep 17, 2020 Time Seen by Provider: 00:30 Patient was resting in her recliner following her breakfast. She was very alert and participated well. Objective Patient completed cognitive tasks at 90% with 10% cues. Assessment Assessment Current Status: Good Progress Treatment Plan Continue Plan of Care Speech Short Term Goals Short Term Goals Short Term Goals 1) Patient will complete a series of cognitive tasks related to safety awareness for her daily needs at 80% or greater with minimal tasks. 2) Patient will utilize memory strategies as trained for daily routine at 80% or greater with minimal tasks. Speech Custodial Goals Custodial Goals Patient will improve cognitive function and safety awareness in order to return to SNF with higher level of function. Speech-Plan Patient/Family Goals Patient/Family Goals: Patient plans on returning to her [facility] apartment upon discharge. Treatment Plan Speech Therapy Treatment Plan: Continue Plan of Care Treatment Duration: Sep 24, 2020 Frequency: 4 times per week (Patient will receive skilled ST 4-5x per week) Estimated Hrs Per Day: .5 hour per day (Patient will receive skilled ST 4-5x per week) Rehab Potential: Good Barriers to Learning: Patient's recent decline in medical status, decreased cognitive function Pt/Family Agrees to Plan: Yes Safety Risks/Education Teaching Recipient: Patient Teaching Methods: Demonstration, Discussion Response to Teaching: Verbalize Understanding, Return Demonstration Education Topics Provided: Continued safety and communication Time Speech Therapy Time In: 08:00 Speech Therapy Time Out: 08:30 Total Billed Time: 30 Billed Treatment Time 1MELISSA BETHANIA ST Sep 17, 2020 08:19
[2020-09-17] MEDS: LOSARTAN 100 MG (COZAAR) TABLET PO SCH (08:35)
[2020-09-17] MEDS: RANOLAZINE ER 500 MG TAB (RANEXA) PO SCH ×2 (08:35→20:51)
[2020-09-17] MEDS: CLOPIDOGREL 75 MG (PLAVIX) TABLET PO SCH (08:35)
[2020-09-17] MEDS: ATENOLOL 25 MG (TENORMIN) TAB PO SCH (08:35)
[2020-09-17] MEDS: PANTOPRAZOLE 40 MG (PROTONIX) TAB PO SCH (08:35)
[2020-09-17] MEDS: ASPIRIN E.C. 81 MG (ECOTRIN) TAB PO SCH (08:35)
[2020-09-17] MEDS: NITROFURANTOIN 100 MG (MACROBID) CAPSULE PO SCH ×2 (08:35→17:15)
[2020-09-17] MEDS: DOCUSATE SODIUM 100 MG (COLACE) CAP PO SCH ×2 (08:36→19:50)
[2020-09-17] MEDS: DICLOFENAC 1% GEL 100 GM (VOLTAREN) TUBE TOP SCH ×4 (08:36→20:52)
[2020-09-17] MEDS: ALLOPURINOL 100 MG (ZYLOPRIM) TAB PO SCH (08:36)
[2020-09-17] MEDS: polyethylene glycoL POWDER 17 GM (MIRALAX) PACK PO SCH ×2 (08:36→19:50)
[2020-09-17] MEDS: SENNA W/DOCUSATE (SENOKOT S) TABLET PO SCH ×2 (08:36→19:50)
[2020-09-17] MEDS: amLODIPine 5 MG (NORVASC) TAB PO SCH (08:36)
[2020-09-17] MEDS: OXYBUTYNIN (DITROPAN) 5 MG TAB PO SCH ×2 (08:36→20:51)
[2020-09-17] MEDS: oxyCODONE/APAP 5/325MG (PERCOCET 5) TABLET PO PRN ×4 (08:39→20:51)
--- NOTE | 2020-09-17 09:48 | Cardiology Progress Note ---
Progress Note-Cardiology Events since last exam Date Seen by Provider: Sep 17, 2020 Time Seen by Provider: 09:43 Events since last exam We are seeing her due to chronic ischemic heart disease following a mechanical fall with subsequent hip fracture. She normally follows with a hydraulic operator in [place], [place]. She is now on the inpatient rehab unit here at [place], [place]. She denies chest pain, dyspnea, palpitations, syncope, or ankle edema. Vitals Last set of Vitals Signs Vital Signs 09/15/20 09/17/20 20:14 08:04 Temp 36.4 Pulse 72 Resp 14 B/P (MAP) 165/79 (107) Pulse Ox 96 O2 Delivery Room Air O2 Flow Rate 2.00 Exam Vital Signs Vital Signs Date Time Temp Pulse Resp B/P (MAP) Pulse Ox O2 Delivery O2 Flow Rate FiO2 09/17/20 08:04 36.4 72 14 165/79 (107) 96 Room Air 09/15/20 20:14 2.00 Physical Exam General: Alert. No acute distress. She is obese. Eye: No xanthelasma. HENT: She has ecchymoses around the left eye with Steri-Strips on her left forehead. Neck: Jugular venous pressure does not appear elevated. Respiratory: Lungs are clear to auscultation. Respirations are non-labored. Breath sounds are equal. Symmetrical chest wall expansion. Cardiovascular: Normal rate. Regular rhythm. No murmur. No gallop. No edema. Gastrointestinal: Soft. Normal bowel sounds. Skin: Warm. Dry. Neurologic: Alert and oriented to person, place, time. Cranial nerves 3-11 grossly intact. Psychiatric: Cooperative. Appropriate mood & affect. Labs Laboratory Tests Test 09/16/20 10:53 09/16/20 16:13 09/16/20 16:44 09/16/20 20:45 Range/Units Glucometer 182 H 72 75 122 H 70-110 MG/DL Test 09/17/20 05:17 Range/Units Glucometer 153 H 70-110 MG/DL Diagnosis/Problems Diagnosis/Problems (1) Coronary artery disease involving [place] coronary artery with angina pectoris Assessment & Plan: Her angina is under good control on 3 antianginal medications, aspirin, clopidogrel, and statin medication. She can follow-up with her regular hydraulic operator after discharge. (2) Essential hypertension Assessment & Plan: Blood pressures are intermittently elevated. Some of this may be related to her physical therapy. We will continue to monitor. (3) Mixed hyperlipidemia Assessment & Plan: Goal LDL less than 70 mg/dL. Continue statin medication. (4) Supraventricular tachycardia Status: Acute Assessment & Plan: No signs of recurrence. Continue beta-abel. CANDY MUNSON JR, MD Sep 17, 2020 09:48
--- NOTE | 2020-09-17 10:14 | Occupational Ther Daily Note ---
OT Current Status-Daily Note Subjective Pt seated upright in recliner, agreeable to OT/PT cotreat. 9/10 pain in L hip Mental Status/Objective Patient Orientation: Person, Place, Situation ADL-Treatment Therapy Code Descriptions/Definitions Functional [place] Measure: 0=Not Assessed/NA 4=Minimal Assistance 1=Total Assistance 5=Supervision or Setup 2=Maximal Assistance 6=Modified [place] 3=Moderate Assistance 7=Complete IndependenceSCALE: Activities may be completed with or without assistive devices. 6-Nnkybswsre-hwibtwg completes the activity by him/herself with no assistance from a helper. 5-Set-up or Clean-up Assistance-helper sets up or cleans up; patient completes activity. [place] assists only prior to or following the activity. 4-Supervision or Touching Assistance-helper provides verbal cues and/or touching/steadying and/or contact guard assistance as patient completes activity. Assistance may be provided throughout the activity or intermittently. 3-Partial/Moderate Assistance-helper does LESS THAN HALF the effort. [place] lifts, holds or supports trunk or limbs, but provides less than half the effort. 2-Substantial/Maximal Assistance-helper does MORE THAN HALF the effort. [place] lifts or holds trunk or limbs and provides more than half the effort. 4-Sxejookzl-kavqqu does ALL the effort. Patient does none of the effort to complete the activity. Or, the assistance of 2 or more helpers is required for the patient to complete the activity. If activity was not attempted, code reason: 7-Patient Refused. 9-Not Applicable-not attempted and the patient did not perform the activity before the current illness, exacerbation or injury. 10-Not Attempted due to Environmental Limitations-(lack of equipment, weather restraints, etc.). 88-Not Attempted due to Medical Conditions or Safety Concerns. Other Treatment OT/PT cotreat due to skill of 2 clinicians required which a rehabilitation therapy technician could not perform in order to decrease fall risk, address safety concerns, and due to pt's limitations in strength, activity tolerance, mobility, and endurance. OT focused on ADLs, UE placement, cues for sequencing and safety, and functional tasks while pt in dynamic positions. PT focused on LE placement, gross overall movement and transfers/mobility. Pt transferred from recliner to w/c, then used UEs to propel w/c to therapy gym, min A with turns, pt able to recall technique and UE placement for turns with min cues. Pt stood in parallel bars x2 trials, seated rest break between. Assist with UE placement with sit to/from stand. Pt transferred to therapy mat, bed mobility & rolling side to side attempted on mat, but pt had increased pain and resisted movement. Pt completed UE/LE exercises in order to increase overall strength, activity tolerance, and exercises preparatory to standing including bridging, hip abduction/adduction, knee flexion/extension, etc. Pt completed the following UE exercises, x10 reps each: shoulder flexion, shoulder abduction, elbow flexion, elbow extension, wrist flexion, wrist extension. Pt transferred to EOM, assist with LEs and trunk, then transferred to w/c. Pt taken back to room, transferring to recliner. Post tx, pt seated upright in recliner, call light in reach and all needs met. Stand pivot transfers, max A x2 to come to standing, cues for UE placement. Education OT Patient Education: Correct positioning, Energy conservation, Exercise program, Modified ADL techniques, Progress toward Goal/Update tx plan, Purpose of tx/functional activities, Rehab process Teaching Recipient: Patient Teaching Methods: Discussion Response to Teaching: Verbalize Understanding OT Short Term Goals Short Term Goals Time Frame: Sep 24, 2020 Toileting hygiene: 3 Lower body dressin Putting on/taking off footwear: 3 OT Patient Services Representative Goals Long-Term Goals Time Frame: Oct 08, 2020 Eating (QC): 6 Oral Hygiene (QC): 6 Toileting Hygiene (QC): 4 Shower/Bathe Self (QC): 4 Upper Body Dressing (QC): 5 Lower Body Dressing (QC): 4 On/Off Footwear (QC): 4 Additional Goals: 1-Demonstrate ADL Tasks, 2-Verbalize Understanding, 3-ImproveStrength/Ruthie 1=Demonstrate adherence to instructed precautions during ADL tasks. 2=Patient will verbalize/demonstrate understanding of assistive devices/modifications for ADL. 3=Patient will improve strength/tolerance for activity to enable patient to perform ADL's. OT Education/Plan Problem List/Assessment Assessment: Decreased Activ Tolerance, Decreased UE Strength, Dependent Transfers, Impaired Bed Mobility, Impaired Funct Balance, Impaired I ADL's, Impaired Self-Care Skills, Restricted Funct UE ROM Discharge Recommendations Plan/Recommendations: Continue POC Treatment Plan/Plan of Care Patient would benefit from OT for education, treatment and training to promote independence in ADL's, mobility, safety and/or upper extremity function for ADL's. Plan of Care: ADL Retraining, Functional Mobility, Group Exercise/Act as Ind, UE Funct Exercise/Act Treatment Duration: Oct 08, 2020 Frequency: At least 5 of 7 days/Wk (IRF) Estimated Hrs Per Day: 1.5 hours per day Agreement: Yes Rehab Potential: Good Time/GCodes Start Time: 09:00 Stop Time: 10:00 Total Time Billed (hr/min): 60 Billed Treatment Time cotreat x60' 1, FA 4 HARLEY LOCKE OT Sep 17, 2020 10:14
--- NOTE | 2020-09-17 12:13 | Physical Therapy Daily Note ---
PT Daily Note-Current Subjective Pt reports 9/10 pain in (L) hip. Transfers SCALE: Activities may be completed with or without assistive devices. 6-Nkuulflmeb-tlbciuw completes the activity by him/herself with no assistance from a helper. 5-Set-up or Clean-up Assistance-helper sets up or cleans up; patient completes activity. [place] assists only prior to or following the activity. 4-Supervision or Touching Assistance-helper provides verbal cues and/or touching/steadying and/or contact guard assistance as patient completes activity. Assistance may be provided throughout the activity or intermittently. 3-Partial/Moderate Assistance-helper does LESS THAN HALF the effort. [place] li fts, holds or supports trunk or limbs, but provides less than half the effort. 2-Substantial/Maximal Assistance-helper does MORE THAN HALF the effort. [place] lifts or holds trunk or limbs and provides more than half the effort. 9-Xpodthqnv-huyjkh does ALL the effort. Patient does none of the effort to complete the activity. Or, the assistance of 2 or more helpers is required for the patient to complete the activity. If activity was not attempted, code reason: 7-Patient Refused. 9-Not Applicable-not attempted and the patient did not perform the activity before the current illness, exacerbation or injury. 10-Not Attempted due to Environmental Limitations-(lack of equipment, weather restraints, etc.). 88-Not Attempted due to Medical Conditions or Safety Concerns. Roll Left & Right (QC): 1 Sit to Lying (QC): 1 Lying to Sitting/Side of Bed(Q: 1 Sit to Stand (QC): 1 Chair/Usu-ky-Hsqnf Xfer(QC): 1 Performed stand pivot transfers x 4 reps form w/c to bed and w/c to chair. Pt requires assist of 2 people and Maximal assist to come to standing. Education on hand placement and position of w/c in relation to surface being transferred to. IMproved tansfers on last 2 transfers. Weight Bearing Right Lower Extremity: Right Full Weight Bearing Left Lower Extremity: Left Weight Bearing/Tolerated Exercises Supine Ex: Bridging, Ankle pumps, Glut sets, Lower trunk rotation, Heel Slides, Knee to chest, Short Arc Quads, Scooting, Resisted flex/ext, Straight leg raise, Hip abd/add Supine Reps: 10 Standing: Sit to Stand Standing Reps: 4 Exercises supine on firm plinth in therapy gym to promote (L) hip extension to neutral. Pt lacks 10 degrees of (L) hip to neutral secondary to pain. Utilized colombian ball for double knee to chest and LTR. Assessment Current Status: Fair Progress Utilized co treat techniques for full session with occupational therapist due to skill level needed. Pt focused on core stability, standing balance, and positioing while OT was able to facilitate functional tasks while patient in dynamic positions. Pt remains very restricted in mobility, limited by pain and weakness. PT Short Term Goals Short Term Goals Time Frame: Sep 27, 2020 Sit to lyin Lying to sitting on side of be: 3 Sit to stand: 3 Walk 50 feet with two turns: 3 PT Second [employer] Goals Residential Goals PT Residential Goals Time Frame: Oct 11, 2020 Roll Left & Right (QC): 6 Sit to Lying (QC): 6 Lying-Sitting on Side/Bed(QC): 6 Sit to Stand (QC): 6 Chair/Gsx-ht-Wowsb Xfer(QC): 6 Toilet Transfer (QC): 6 Car Transfer (QC): 5 Does the Patient Walk: No and Walking Goal IS indicated Walk 10 feet (QC): 6 Walk 50ft with 2 Turns (QC): 6 Walk 150 ft (QC): 6 Walking 10ft on Uneven Surface: 5 1 Step (curb) (QC): 6 4 Steps (QC): 6 12 Steps (QC): 9 Picking up an Object (QC): 4 Does the Pt use WC or Scooter?: No Wheel 50 feet with 2 turns (QC: 9 Wheel 150 feet: 9 PT Plan Treatment/Plan Treatment Plan: Continue Plan of Care Treatment Plan: Bed Mobility, Education, Functional Activity Ruthie, Functional Strength, Group Therapy, Gait, Safety, Therapeutic Exercise, Transfers Treatment Duration: Oct 11, 2020 Frequency: At least 5 of 7 days/Wk (IRF) Estimated Hrs Per Day: 1.5 hours per day Patient and/or Family Agrees t: Yes Time/GCodes Time In: 900 Time Out: 1000 Total Billed Treatment Time: 60 Total Billed Treatment visit, exercise 30 min, FA 30 min CYNTHIA GONZALEZ PT Sep 17, 2020 12:12
--- NOTE | 2020-09-17 14:51 | Therapy Group Daily Note ---
Therapy Daily Group Note Patient Education Topic Home Safety, Other List Below (pain management) Exercises LE Seated Exercise, UE Exercise Session Ratio (pt:therapist): 8:2 Goal of Session: Education on ARU Expectations, Home Safety Strategies, UE/LE Strengthing, Other (list) (pain management) Goal Met for this Session: Yes Pt Benefit of Group: Contributions to Others, F/U Use of Strategies @Home, Increased Functional Safety, Increased Functional Strength, Improved Cognition, Recognition of Peers, Socialization Other/Notes Pt transported via w/c to therapy gym for OT/PT group. Group consisted of introductions (name, place living, childhood memory), socialization, B UE/LE seated exercises, education of pain management and home safety activity. Pt introduced self appropriately and actively listened to peers. Pt was able to complete B UE/LE seated exercises with assist, fatigue quickly. Pt acknowledged understanding of pain management education by giving personal story and strategies. Pt attended to home safety activity and answered questions appropriately. After therapy, pt lying in bed with call light/phone in reach. All needs met in room. Start Time: 13:00 Stop Time: 14:00 Total Billed Treatment Time: 60 Total Billed Treatment 1-GRP SARABJIT SANDOVAL Sep 17, 2020 14:51
[2020-09-17 19:48] VITALS: BP 143/83
[2020-09-17] MEDS: SERTRALINE 50 MG (ZOLOFT) TABLET PO SCH (20:50)
[2020-09-17] MEDS: MELATONIN 3 MG TABLET PO PRN (20:51)
[2020-09-18] MEDS: inSUlin ASPART (NovoLOG) 1 UNIT/0.01 ML (CHARGE PER UNIT) SC SCH ×4 (05:38→20:11)
--- NOTE | 2020-09-18 07:03 | Progress Note ---
Standard Progress Note Progress Notes/Assess & Plan Date Seen by a Provider: Sep 18, 2020 Time Seen by a Provider: 07:02 Progress/Assessment & Plan c/o hip pain Incision clean and dry. No calf tenderness s/p L hip perc screws WB with walker patient reports she is going to "try harder" with PT/OT Final Diagnosis no complaints L hip incision clean and dry. Min pain with IR/ER of hip passiveley s/p L hip perc screws mobilize as able FAUSTINO REAVES MD Sep 18, 2020 07:03
[2020-09-18] MEDS: inSUlin (REGULAR) HUMAN 1 UNIT/0.01 ML (CHARGE PER UNIT) SC SCH ×3 (07:24→17:13)
[2020-09-18 07:30] VITALS: BP 143/83
--- NOTE | 2020-09-18 08:38 | PM&R Progress Note ---
Subjective HPI/CC On Admission Date Seen by Provider: Sep 18, 2020 Time Seen by Provider: 13:00 Pt is a 65yoCF with a PMH of HTN, IDDMII, recent CVA who presented to the ER due to a fall and was found to have a displaced hip fracture. She underwent operative repair by Dr Villa. She normally resides at [facility] and is ambulating but have deficits from her recent CVA. She is being admitted to IRU for intensive therapy. Subjective/Events-last exam 09/18/2020: This visit is via video chat due to Covid related restriction for this provider Patient doing well today Bowels moved 2 days ago Reglan will be given at her request Able to use her continuous blood sugar monitor Stand and pivot is a struggle May need skilled at discharge 09/17/2020: This visit is via video chat due to Covid related restriction for this provider Patient doing pretty well Holding insulin for sugar less than 135 to prevent hypoglycemia Voiding pretty well 300-400 cc at a time Increased pain with therapy but she is doing a lot better today 09/16/2020: This visit is via video chat due to Covid related restriction for this provider Patient doing pretty well today Plavix and aspirin back on board Dr. Villa checked her right knee and everything looked okay probably bruised Voltaren gel will be attempted to put on the right knee to help her Bladder scan may be required since Leiva catheter discontinued and she may be retaining Standing in parallel bars today 09/15/2020: This visit is via video chat due to Covid related restriction for this provider Patient having a tough day Not moving around well 2-3 person assist today Plavix and ASA had been held since OR so will restart that because she is reported feeling like she is having TIA's Incontinent of bowel and bladder since DC catheter, she was having these issues before fall No BM since 09/10 so will give more meds 09/14/2020: This visit is via video chat due to Covid related restriction for this provider Patient settling in well Changed to a regular diet that is what she eats at home Creatinine stable at 1.6 with chronic kidney disease Delay in cognition per nursing staff but she seems to be doing pretty well today Having some knee pain on the right side unsure if she fell on it No bowels are moving yet last one was 09/10/2020 Check meds and labs Check Accu-Cheks Review of Systems General: Fatigue Musculoskeletal: leg pain Objective Exam Vital Signs Vital Signs Date Time Temp Pulse Resp B/P (MAP) Pulse Ox O2 Delivery O2 Flow Rate FiO2 09/18/20 09:13 Room Air 09/18/20 07:30 36.0 72 20 143/83 (103) 95 09/15/20 20:14 2.00 Capillary Refill : General Appearance: No Apparent Distress, WD/WN, Chronically ill, Obese HEENT: PERRL/EOMI, Normal ENT Inspection, Pharynx Normal, Moist Mucous Membranes Neck: Full Range of Motion, Normal Inspection, Non Tender Respiratory: Chest Non Tender, Lungs Clear, Normal Breath Sounds, No Accessory Muscle Use, No Respiratory Distress Cardiovascular: Regular Rate, Rhythm, No Edema, No Gallop, No JVD, No Murmur, Normal Peripheral Pulses Gastrointestinal: Normal Bowel Sounds, No Organomegaly, No Pulsatile Mass, Non Tender, Soft Back: Normal Inspection, No CVA Tenderness, No Vertebral Tenderness Extremity: Normal Capillary Refill, Normal Inspection, Normal Range of Motion (except left leg), Non Tender, No Calf Tenderness, No Pedal Edema Neurologic/Psychiatric: Alert, Oriented x3, No Motor/Sensory Deficits, 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 FIM Transfers Therapy Code Descriptions/Definitions Functional [place] Measure: 0=Not Assessed/NA 4=Minimal Assistance 1=Total Assistance 5=Supervision or Setup 2=Maximal Assistance 6=Modified [place] 3=Moderate Assistance 7=Complete IndependenceSCALE: Activities may be completed with or without assistive devices. 9-Apszwszzte-whphyuq completes the activity by him/herself with no assistance from a helper. 5-Set-up or Clean-up Assistance-helper sets up or cleans up; patient completes activity. [place] assists only prior to or following the activity. 4-Supervision or Touching Assistance-helper provides verbal cues and/or touching/steadying and/or contact guard assistance as patient completes activity. Assistance may be provided throughout the activity or intermittently. 3-Partial/Moderate Assistance-helper does LESS THAN HALF the effort. [place] lift s, holds or supports trunk or limbs, but provides less than half the effort. 2-Substantial/Maximal Assistance-helper does MORE THAN HALF the effort. [place] lifts or holds trunk or limbs and provides more than half the effort. 2-Jtktqmiwj-nyqkxc does ALL the effort. Patient does none of the effort to complete the activity. Or, the assistance of 2 or more helpers is required for the patient to complete the activity. If activity was not attempted, code reason: 7-Patient Refused. 9-Not Applicable-not attempted and the patient did not perform the activity before the current illness, exacerbation or injury. 10-Not Attempted due to Environmental Limitations-(lack of equipment, weather restraints, etc.). 88-Not Attempted due to Medical Conditions or Safety Concerns. Roll Left to Right (QC): 1 Sit to Lying (QC): 1 Sit to Stand (QC): 1 Chair/Uxf-ne-Dqqyb Xfer(QC): 1 Car Transfer (QC): 88 (unsafe to attempt this date. ) Gait Training Does the Patient Walk?: No and Walking Goal IS indicated Walk 10 feet (QC): 88 Walk 50 ft with 2 Turns(QC): 88 Walk 150 ft (QC): 88 Walking 10ft/uneven surface-QC: 88 Wheelchair Training Does the Pt Use a Wheelchair?: Yes Wheel 50 ft with 2 turns (QC): 4 Wheel 150 ft (QC): 4 Type of Wheelchair: Manual Stair Training 1 Step (curb) (QC): 88 4 Steps (QC): 88 12 Steps (QC): 88 Balance Picking up an Object (QC): 88 ADL-Treatment Eating (QC): 5 Oral Hygiene (QC): 5 (set up at tray table.) Shower/Bathe Self (QC): 1 (assist x2 to wash buttocks. Pt able to wash upper body, assist with buttocks, periarea, and BLEs) Upper Body Dressing (QC): 4 (based on clincial judgement, CGA with task.) Lower Body Dressing (QC): 1 (based on clinical judgement, assist x2 for pant hike) On/Off Footwear (QC): 1 (based on clincial judgement, pt would require total assistance.) Toileting Hygiene (QC): 1 (based on clincial judgement, Pt would require assist x2 in stand, assist with all parts.) Assessment/Plan Assessment and Plan Assess & Plan/Chief Complaint REHAB/MEDICAL ASSESSMENT AND PLAN: REHAB IMPAIRMENT GROUP: Left femur fracture ETIOLOGIC DIAGNOSIS: Left femur fracture The comorbidities that impact the patients function and/or functional outcome by: severe DM, inoperable CAD, CRI, HTN, gastroparesis, CVA hx REHAB PLAN: The patient is being admitted to our comprehensive inpatient rehabilitation facility and can tolerate the intensity of service consisting of at least: 180 minutes of therapy a day, 5 out of 7 days a week Rehab treatment will consist of: PT and OT will focus on left extremity pain with requirements to increase ADLs and ambulation in order to return to independent living The patient/family has a good understanding of our discharge process and will benefit from an interdisciplinary inpatient rehabilitation program. The patient has potential to make improvement and is in need of at least two of the following multidisciplinary therapies including but not limited to physical, occupational, speech, and prosthetics and orthotics. Additionally the patient will need services from respiratory, nutritional services, wound care, psychology, etc. (Customize this to each patient). Given the patients complex condition and risk of further medical complications, rehabilitation services cannot be safely or effectively provided at a lower level of care such as a [place] [facility] facility. BARRIERS TO DISCHARGE: Lives alone previously ESTIMATED LOS: 10 days DISPOSITION: Home with home care? RELEVANT CHANGES SINCE PREADMISSION SCREENING: I have compared the patients medical and functional status at the time of the preadmission screening and there are: no changes PROGNOSIS: Fair REHABILITATION GOALS: 1. PT and OT will focus on left lower extremity pain and decreased ROM with requirements to increase ADLs and ambulation in order to return to independent living All the above goals were reviewed with the patient and he/she is in agreement. By signing this document, I acknowledge that I have personally performed a full physical examination on this patient within 24 hours of admission to this inpatient rehabilitation facility and have determined the patient to be able to tolerate the above course of treatment at an intensive level for a reasonable period of time. I will be completing a detailed individualized Plan of Care for this patient by day #4 of the patients stay based upon the Preadmission Screen, the Post-Admission Evaluation, and the therapy evaluations. Assessment: Left femur fracture s/p repair Post op anemia h/o right sided weakness with facial droop not a tPa candidate per Stroke center [facility] MRI inconclusive for CVA 03/07/20 s/p CVA w/residual left facial droop and left upper and lower extremity weakness August 2018 IRF course DM poorly controlled CAD inoperable multi-vessel disease declined heart transplant at [facility] 2014 HTN HLP CRI Insomnia GERD Gastroparesis OP Neuropathy Hypoglycemia episodes ANNIE on CPAP Plan: Rehab protocol Insulin Pain control 09/14/2020: Pain control Change diet to regular diet Monitor closely 09/15/20: Monitor bowel and bladder CPAP Plavix and ASA restarted 09/16/2020: Monitor closely Monitor insulin with hypoglycemia Voltaren gel to the right knee 09/17/2020: Bowel regimen Monitor voiding Pain control 09/18/2020: Monitor blood sugar Fall risk (1) Coronary artery disease involving [place] coronary artery with angina pectoris Assessment & Plan: Her angina is under good control on 3 antianginal medications, aspirin, clopidogrel, and statin medication. She can follow-up with her regular commercial marketing specialist after discharge. (2) Essential hypertension Assessment & Plan: Blood pressures are intermittently elevated. Some of this may be related to her physical therapy. We will continue to monitor. (3) Mixed hyperlipidemia Assessment & Plan: Goal LDL less than 70 mg/dL. Continue statin medication. (4) Supraventricular tachycardia Status: Acute Assessment & Plan: No signs of recurrence. Continue beta-abel. JAG KIRKLAND DO Sep 18, 2020 08:38
[2020-09-18] MEDS: NITROFURANTOIN 100 MG (MACROBID) CAPSULE PO SCH (08:54)
[2020-09-18] MEDS: ALLOPURINOL 100 MG (ZYLOPRIM) TAB PO SCH (08:55)
[2020-09-18] MEDS: SENNA W/DOCUSATE (SENOKOT S) TABLET PO SCH ×2 (08:55→20:56)
[2020-09-18] MEDS: DOCUSATE SODIUM 100 MG (COLACE) CAP PO SCH ×2 (08:55→20:56)
[2020-09-18] MEDS: ATENOLOL 25 MG (TENORMIN) TAB PO SCH (08:56)
[2020-09-18] MEDS: LOSARTAN 100 MG (COZAAR) TABLET PO SCH (08:56)
[2020-09-18] MEDS: oxyCODONE/APAP 5/325MG (PERCOCET 5) TABLET PO PRN ×3 (08:56→22:16)
[2020-09-18] MEDS: PANTOPRAZOLE 40 MG (PROTONIX) TAB PO SCH (08:56)
[2020-09-18] MEDS: CLOPIDOGREL 75 MG (PLAVIX) TABLET PO SCH (08:56)
[2020-09-18] MEDS: OXYBUTYNIN (DITROPAN) 5 MG TAB PO SCH ×2 (08:56→20:27)
[2020-09-18] MEDS: RANOLAZINE ER 500 MG TAB (RANEXA) PO SCH ×2 (08:56→20:27)
[2020-09-18] MEDS: ASPIRIN E.C. 81 MG (ECOTRIN) TAB PO SCH (08:56)
[2020-09-18] MEDS: polyethylene glycoL POWDER 17 GM (MIRALAX) PACK PO SCH ×2 (08:57→19:32)
[2020-09-18] MEDS: amLODIPine 5 MG (NORVASC) TAB PO SCH (08:57)
[2020-09-18] MEDS: DICLOFENAC 1% GEL 100 GM (VOLTAREN) TUBE TOP SCH ×4 (08:58→20:27)
[2020-09-18] MEDS: METOCLOPRAMIDE 10 MG (REGLAN) TAB PO PRN (09:01)
--- NOTE | 2020-09-18 13:23 | Physical Therapy Daily Note ---
PT Daily Note-Current Subjective Pt in bed, agreeable to up to chair. Reports pain but not rated. Mental Status Patient Orientation: Person, Place, Time, Situation Transfers SCALE: Activities may be completed with or without assistive devices. 7-Drbiodjkvf-fxbdqni completes the activity by him/herself with no assistance from a helper. 5-Set-up or Clean-up Assistance-helper sets up or cleans up; patient completes activity. [place] assists only prior to or following the activity. 4-Supervision or Touching Assistance-helper provides verbal cues and/or touching/steadying and/or contact guard assistance as patient completes activity. Assistance may be provided throughout the activity or intermittently. 3-Partial/Moderate Assistance-helper does LESS THAN HALF the effort. [place] lifts, holds or supports trunk or limbs, but provides less than half the effort. 2-Substantial/Maximal Assistance-helper does MORE THAN HALF the effort. [place] lifts or holds trunk or limbs and provides more than half the effort. 9-Nczhbdteg-xomewm does ALL the effort. Patient does none of the effort to complete the activity. Or, the assistance of 2 or more helpers is required for the patient to complete the activity. If activity was not attempted, code reason: 7-Patient Refused. 9-Not Applicable-not attempted and the patient did not perform the activity before the current illness, exacerbation or injury. 10-Not Attempted due to Environmental Limitations-(lack of equipment, weather restraints, etc.). 88-Not Attempted due to Medical Conditions or Safety Concerns. Lying to Sitting/Side of Bed(Q: 1 Sit to Stand (QC): 1 Chair/Khc-st-Ahyff Xfer(QC): 1 Supine<->Sit transfer, dav ramsey, max a x 2 Sit<->stand: Max A x 1 Bed->chair: SPT Max A x 2 Weight Bearing Right Lower Extremity: Right Full Weight Bearing Left Lower Extremity: Left Weight Bearing/Tolerated Exercises Supine Ex: Ankle pumps, Quad Set, Glut sets, Heel Slides, Hip abd/add Supine Reps: 10 Poor facilitation with QS and GS despite max VCS. AAROM to complete additional exercises. Treatments LE ex, transfer training. Pt up in chair with all needs met. Assessment Current Status: Fair Progress Pt tolerated fair. Significant difficulty advancing either LE to complete transfer. PT Short Term Goals Short Term Goals Time Frame: Sep 27, 2020 Sit to lyin Lying to sitting on side of be: 3 Sit to stand: 3 Walk 50 feet with two turns: 3 PT Blackjack Pit Boss Goals Blackjack Pit Boss Goals PT Blackjack Pit Boss Goals Time Frame: Oct 11, 2020 Roll Left & Right (QC): 6 Sit to Lying (QC): 6 Lying-Sitting on Side/Bed(QC): 6 Sit to Stand (QC): 6 Chair/Nzp-rk-Pfsvk Xfer(QC): 6 Toilet Transfer (QC): 6 Car Transfer (QC): 5 Does the Patient Walk: No and Walking Goal IS indicated Walk 10 feet (QC): 6 Walk 50ft with 2 Turns (QC): 6 Walk 150 ft (QC): 6 Walking 10ft on Uneven Surface: 5 1 Step (curb) (QC): 6 4 Steps (QC): 6 12 Steps (QC): 9 Picking up an Object (QC): 4 Does the Pt use WC or Scooter?: No Wheel 50 feet with 2 turns (QC: 9 Wheel 150 feet: 9 PT Plan Problem List Problem List: Activity Tolerance, Functional Strength, Safety, Balance, Gait, Transfer, Bed Mobility, ROM Treatment/Plan Treatment Plan: Continue Plan of Care Treatment Plan: Bed Mobility, Education, Functional Activity Ruthie, Functional Strength, Group Therapy, Gait, Safety, Therapeutic Exercise, Transfers Treatment Duration: Oct 11, 2020 Frequency: At least 5 of 7 days/Wk (IRF) Estimated Hrs Per Day: 1.5 hours per day Patient and/or Family Agrees t: Yes Safety Risks/Education Patient Education: Transfer Techniques Teaching Recipient: Patient Teaching Methods: Demonstration, Discussion Response to Teaching: Reinforcement Needed Time/GCodes Time In: 0956 Time Out: 1019 Total Billed Treatment Time: 23 Total Billed Treatment 1, FA x 23' JAYLA CHAVEZ DPJenifer Sep 18, 2020 13:23
[2020-09-18 20:00] VITALS: BP 108/65
[2020-09-18] MEDS: SERTRALINE 50 MG (ZOLOFT) TABLET PO SCH (20:27)
[2020-09-18] MEDS: MELATONIN 3 MG TABLET PO PRN (22:16)
[2020-09-19] MEDS: inSUlin ASPART (NovoLOG) 1 UNIT/0.01 ML (CHARGE PER UNIT) SC SCH ×4 (04:56→21:01)
[2020-09-19] MEDS: inSUlin (REGULAR) HUMAN 1 UNIT/0.01 ML (CHARGE PER UNIT) SC SCH ×3 (04:58→16:40)
--- NOTE | 2020-09-19 07:02 | PM&R Progress Note ---
Subjective HPI/CC On Admission Date Seen by Provider: Sep 19, 2020 Time Seen by Provider: 10:00 Pt is a 65yoCF with a PMH of HTN, IDDMII, recent CVA who presented to the ER due to a fall and was found to have a displaced hip fracture. She underwent operative repair by Dr Villa. She normally resides at [facility] and is ambulating but have deficits from her recent CVA. She is being admitted to IRU for intensive therapy. Subjective/Events-last exam 09/19/2020: Patient feels pretty good Moving around better Stand and pivot is not very smooth Glucometers 134 today Continuous blood sugar monitor is being used Eats a lot No bowel movement today yet 09/18/2020: This visit is via video chat due to Covid related restriction for this provider Patient doing well today Bowels moved 2 days ago Reglan will be given at her request Able to use her continuous blood sugar monitor Stand and pivot is a struggle May need skilled at discharge 09/17/2020: This visit is via video chat due to Covid related restriction for this provider Patient doing pretty well Holding insulin for sugar less than 135 to prevent hypoglycemia Voiding pretty well 300-400 cc at a time Increased pain with therapy but she is doing a lot better today 09/16/2020: This visit is via video chat due to Covid related restriction for this provider Patient doing pretty well today Plavix and aspirin back on board Dr. Villa checked her right knee and everything looked okay probably bruised Voltaren gel will be attempted to put on the right knee to help her Bladder scan may be required since Leiva catheter discontinued and she may be retaining Standing in parallel bars today 09/15/2020: This visit is via video chat due to Covid related restriction for this provider Patient having a tough day Not moving around well 2-3 person assist today Plavix and ASA had been held since OR so will restart that because she is reported feeling like she is having TIA's Incontinent of bowel and bladder since DC catheter, she was having these issues before fall No BM since 09/10 so will give more meds 09/14/2020: This visit is via video chat due to Covid related restriction for this provider Patient settling in well Changed to a regular diet that is what she eats at home Creatinine stable at 1.6 with chronic kidney disease Delay in cognition per nursing staff but she seems to be doing pretty well today Having some knee pain on the right side unsure if she fell on it No bowels are moving yet last one was 09/10/2020 Check meds and labs Check Accu-Cheks Review of Systems General: Fatigue, Malaise Musculoskeletal: leg pain Neurological: Weakness Objective Exam Vital Signs Vital Signs Date Time Temp Pulse Resp B/P (MAP) Pulse Ox O2 Delivery O2 Flow Rate FiO2 09/19/20 20:58 Room Air 09/19/20 20:00 36.2 66 12 111/64 (80) 93 09/15/20 20:14 2.00 Capillary Refill : General Appearance: No Apparent Distress, WD/WN, Chronically ill, Obese HEENT: PERRL/EOMI, Normal ENT Inspection, Pharynx Normal, Moist Mucous Membranes Neck: Full Range of Motion, Normal Inspection, Non Tender Respiratory: Chest Non Tender, Lungs Clear, Normal Breath Sounds, No Accessory Muscle Use, No Respiratory Distress Cardiovascular: Regular Rate, Rhythm, No Edema, No Gallop, No JVD, No Murmur, Normal Peripheral Pulses Gastrointestinal: Normal Bowel Sounds, No Organomegaly, No Pulsatile Mass, Non Tender, Soft Back: Normal Inspection, No CVA Tenderness, No Vertebral Tenderness Extremity: Normal Capillary Refill, Normal Inspection, Normal Range of Motion (except left leg), Non Tender, No Calf Tenderness, No Pedal Edema Neurologic/Psychiatric: Alert, Oriented x3, No Motor/Sensory Deficits, 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 FIM Transfers Therapy Code Descriptions/Definitions Functional [place] Measure: 0=Not Assessed/NA 4=Minimal Assistance 1=Total Assistance 5=Supervision or Setup 2=Maximal Assistance 6=Modified [place] 3=Moderate Assistance 7=Complete IndependenceSCALE: Activities may be completed with or without assistive devices. 8-Kuhvrlyrka-qgxpvkf completes the activity by him/herself with no assistance from a helper. 5-Set-up or Clean-up Assistance-helper sets up or cleans up; patient completes a ctivity. [place] assists only prior to or following the activity. 4-Supervision or Touching Assistance-helper provides verbal cues and/or touching/steadying and/or contact guard assistance as patient completes activity. Assistance may be provided throughout the activity or intermittently. 3-Partial/Moderate Assistance-helper does LESS THAN HALF the effort. [place] lifts, holds or supports trunk or limbs, but provides less than half the effort. 2-Substantial/Maximal Assistance-helper does MORE THAN HALF the effort. [place] lifts or holds trunk or limbs and provides more than half the effort. 3-Ehdmkotbq-kpfbhq does ALL the effort. Patient does none of the effort to complete the activity. Or, the assistance of 2 or more helpers is required for the patient to complete the activity. If activity was not attempted, code reason: 7-Patient Refused. 9-Not Applicable-not attempted and the patient did not perform the activity before the current illness, exacerbation or injury. 10-Not Attempted due to Environmental Limitations-(lack of equipment, weather restraints, etc.). 88-Not Attempted due to Medical Conditions or Safety Concerns. Roll Left to Right (QC): 1 Sit to Lying (QC): 1 Sit to Stand (QC): 1 Chair/Voy-cb-Ulteu Xfer(QC): 1 Car Transfer (QC): 88 (unsafe to attempt this date. ) Gait Training Does the Patient Walk?: No and Walking Goal IS indicated Walk 10 feet (QC): 88 Walk 50 ft with 2 Turns(QC): 88 Walk 150 ft (QC): 88 Walking 10ft/uneven surface-QC: 88 Wheelchair Training Does the Pt Use a Wheelchair?: Yes Wheel 50 ft with 2 turns (QC): 4 Wheel 150 ft (QC): 4 Type of Wheelchair: Manual Stair Training 1 Step (curb) (QC): 88 4 Steps (QC): 88 12 Steps (QC): 88 Balance Picking up an Object (QC): 88 ADL-Treatment Eating (QC): 5 Oral Hygiene (QC): 5 (set up at tray table.) Shower/Bathe Self (QC): 1 (assist x2 to wash buttocks. Pt able to wash upper body, assist with buttocks, periarea, and BLEs) Upper Body Dressing (QC): 4 (based on clincial judgement, CGA with task.) Lower Body Dressing (QC): 1 (based on clinical judgement, assist x2 for pant hike) On/Off Footwear (QC): 1 (based on clincial judgement, pt would require total assistance.) Toileting Hygiene (QC): 1 (based on clincial judgement, Pt would require assist x2 in stand, assist with all parts.) Assessment/Plan Assessment and Plan Assess & Plan/Chief Complaint REHAB/MEDICAL ASSESSMENT AND PLAN: REHAB IMPAIRMENT GROUP: Left femur fracture ETIOLOGIC DIAGNOSIS: Left femur fracture The comorbidities that impact the patients function and/or functional outcome by: severe DM, inoperable CAD, CRI, HTN, gastroparesis, CVA hx REHAB PLAN: The patient is being admitted to our comprehensive inpatient rehabilitation facility and can tolerate the intensity of service consisting of at least: 180 minutes of therapy a day, 5 out of 7 days a week Rehab treatment will consist of: PT and OT will focus on left extremity pain with requirements to increase ADLs and ambulation in order to return to independent living The patient/family has a good understanding of our discharge process and will benefit from an interdisciplinary inpatient rehabilitation program. The patient has potential to make improvement and is in need of at least two of the following multidisciplinary therapies including but not limited to physical, occupational, speech, and prosthetics and orthotics. Additionally the patient will need services from respiratory, nutritional services, wound care, psychology, etc. (Customize this to each patient). Given the patients complex condition and risk of further medical complications, rehabilitation services cannot be safely or effectively provided at a lower level of care such as a prison facility. BARRIERS TO DISCHARGE: Lives alone previously ESTIMATED LOS: 10 days DISPOSITION: Home with home care? RELEVANT CHANGES SINCE PREADMISSION SCREENING: I have compared the patients medical and functional status at the time of the preadmission screening and there are: no changes PROGNOSIS: Fair REHABILITATION GOALS: 1. PT and OT will focus on left lower extremity pain and decreased ROM with requirements to increase ADLs and ambulation in order to return to independent living All the above goals were reviewed with the patient and he/she is in agreement. By signing this document, I acknowledge that I have personally performed a full physical examination on this patient within 24 hours of admission to this inpatient rehabilitation facility and have determined the patient to be able to tolerate the above course of treatment at an intensive level for a reasonable period of time. I will be completing a detailed individualized Plan of Care for this patient by day #4 of the patients stay based upon the Preadmission Screen, the Post-Admission Evaluation, and the therapy evaluations. Assessment: Left femur fracture s/p repair Post op anemia h/o right sided weakness with facial droop not a tPa candidate per Stroke center [facility] MRI inconclusive for CVA 03/07/20 s/p CVA w/residual left facial droop and left upper and lower extremity weakness August 2018 IRF course DM poorly controlled CAD inoperable multi-vessel disease declined heart transplant at [facility] 2014 HTN HLP CRI Insomnia GERD Gastroparesis OP Neuropathy Hypoglycemia episodes ANNIE on CPAP Plan: Rehab protocol Insulin Pain control 09/14/2020: Pain control Change diet to regular diet Monitor closely 09/15/20: Monitor bowel and bladder CPAP Plavix and ASA restarted 09/16/2020: Monitor closely Monitor insulin with hypoglycemia Voltaren gel to the right knee 09/17/2020: Bowel regimen Monitor voiding Pain control 09/18/2020: Monitor blood sugar Fall risk 09/19/2020: Monitor blood sugar and blood pressure Bowel regimen (1) Coronary artery disease involving [place] coronary artery with angina pectoris Assessment & Plan: Her angina is under good control on 3 antianginal medi cations, aspirin, clopidogrel, and statin medication. She can follow-up with her regular risk control officer after discharge. (2) Essential hypertension Assessment & Plan: Blood pressures are intermittently elevated. Some of this may be related to her physical therapy. We will continue to monitor. (3) Mixed hyperlipidemia Assessment & Plan: Goal LDL less than 70 mg/dL. Continue statin medication. (4) Supraventricular tachycardia Status: Acute Assessment & Plan: No signs of recurrence. Continue beta-abel. JAG KIRKLAND DO Sep 19, 2020 07:02
[2020-09-19 07:30] VITALS: BP 151/81
[2020-09-19] MEDS: DOCUSATE SODIUM 100 MG (COLACE) CAP PO SCH ×2 (08:45→21:00)
[2020-09-19] MEDS: RANOLAZINE ER 500 MG TAB (RANEXA) PO SCH ×2 (08:46→20:51)
[2020-09-19] MEDS: CLOPIDOGREL 75 MG (PLAVIX) TABLET PO SCH (08:46)
[2020-09-19] MEDS: ALLOPURINOL 100 MG (ZYLOPRIM) TAB PO SCH (08:46)
[2020-09-19] MEDS: LOSARTAN 100 MG (COZAAR) TABLET PO SCH (08:46)
[2020-09-19] MEDS: OXYBUTYNIN (DITROPAN) 5 MG TAB PO SCH ×2 (08:46→20:51)
[2020-09-19] MEDS: ASPIRIN E.C. 81 MG (ECOTRIN) TAB PO SCH (08:46)
[2020-09-19] MEDS: PANTOPRAZOLE 40 MG (PROTONIX) TAB PO SCH (08:46)
[2020-09-19] MEDS: ATENOLOL 25 MG (TENORMIN) TAB PO SCH (08:46)
[2020-09-19] MEDS: amLODIPine 5 MG (NORVASC) TAB PO SCH (08:46)
[2020-09-19] MEDS: SENNA W/DOCUSATE (SENOKOT S) TABLET PO SCH ×2 (08:46→21:01)
[2020-09-19] MEDS: oxyCODONE/APAP 5/325MG (PERCOCET 5) TABLET PO PRN ×3 (08:48→20:52)
[2020-09-19] MEDS: polyethylene glycoL POWDER 17 GM (MIRALAX) PACK PO SCH ×2 (08:48→21:01)
[2020-09-19] MEDS: DICLOFENAC 1% GEL 100 GM (VOLTAREN) TUBE TOP SCH ×4 (08:48→20:53)
[2020-09-19 20:00] VITALS: BP 111/64
[2020-09-19] MEDS: MELATONIN 3 MG TABLET PO PRN (20:51)
[2020-09-19] MEDS: SERTRALINE 50 MG (ZOLOFT) TABLET PO SCH (20:52)
[2020-09-20] MEDS: inSUlin ASPART (NovoLOG) 1 UNIT/0.01 ML (CHARGE PER UNIT) SC SCH ×6 (05:00→20:46)
[2020-09-20] MEDS: inSUlin (REGULAR) HUMAN 1 UNIT/0.01 ML (CHARGE PER UNIT) SC SCH ×3 (05:00→16:48)
[2020-09-20] MEDS: oxyCODONE/APAP 5/325MG (PERCOCET 5) TABLET PO PRN ×4 (06:00→22:20)
--- NOTE | 2020-09-20 06:01 | PM&R Progress Note ---
Subjective HPI/CC On Admission Date Seen by Provider: Sep 20, 2020 Time Seen by Provider: 09:00 Pt is a 65yoCF with a PMH of HTN, IDDMII, recent CVA who presented to the ER due to a fall and was found to have a displaced hip fracture. She underwent operative repair by Dr Villa. She normally resides at [facility] and is ambulating but have deficits from her recent CVA. She is being admitted to IRU for intensive therapy. Subjective/Events-last exam 09/20/2020: Pt doing pretty well Creatinine 1.92 Bowels are not moving as well as they should be Sugars are okay May need skilled care 09/19/2020: Patient feels pretty good Moving around better Stand and pivot is not very smooth Glucometers 134 today Continuous blood sugar monitor is being used Eats a lot No bowel movement today yet 09/18/2020: This visit is via video chat due to Covid related restriction for this provider Patient doing well today Bowels moved 2 days ago Reglan will be given at her request Able to use her continuous blood sugar monitor Stand and pivot is a struggle May need skilled at discharge 09/17/2020: This visit is via video chat due to Covid related restriction for this provider Patient doing pretty well Holding insulin for sugar less than 135 to prevent hypoglycemia Voiding pretty well 300-400 cc at a time Increased pain with therapy but she is doing a lot better today 09/16/2020: This visit is via video chat due to Covid related restriction for this provider Patient doing pretty well today Plavix and aspirin back on board Dr. Villa checked her right knee and everything looked okay probably bruised Voltaren gel will be attempted to put on the right knee to help her Bladder scan may be required since Leiva catheter discontinued and she may be retaining Standing in parallel bars today 09/15/2020: This visit is via video chat due to Covid related restriction for this provider Patient having a tough day Not moving around well 2-3 person assist today Plavix and ASA had been held since OR so will restart that because she is reported feeling like she is having TIA's Incontinent of bowel and bladder since DC catheter, she was having these issues before fall No BM since 09/10 so will give more meds 09/14/2020: This visit is via video chat due to Covid related restriction for this provider Patient settling in well Changed to a regular diet that is what she eats at home Creatinine stable at 1.6 with chronic kidney disease Delay in cognition per nursing staff but she seems to be doing pretty well today Having some knee pain on the right side unsure if she fell on it No bowels are moving yet last one was 09/10/2020 Check meds and labs Check Accu-Cheks Review of Systems General: Fatigue Musculoskeletal: arm pain, leg pain Objective Exam Vital Signs Vital Signs Date Time Temp Pulse Resp B/P (MAP) Pulse Ox O2 Delivery O2 Flow Rate FiO2 09/20/20 20:20 Room Air 09/20/20 20:00 36.8 63 16 123/75 (91) 97 09/20/20 07:12 2.00 Capillary Refill : General Appearance: No Apparent Distress, WD/WN, Chronically ill, Obese HEENT: PERRL/EOMI, Normal ENT Inspection, Pharynx Normal, Moist Mucous Membranes Neck: Full Range of Motion, Normal Inspection, Non Tender Respiratory: Chest Non Tender, Lungs Clear, Normal Breath Sounds, No Accessory Muscle Use, No Respiratory Distress Cardiovascular: Regular Rate, Rhythm, No Edema, No Gallop, No JVD, No Murmur, Normal Peripheral Pulses Gastrointestinal: Normal Bowel Sounds, No Organomegaly, No Pulsatile Mass, Non Tender, Soft Back: Normal Inspection, No CVA Tenderness, No Vertebral Tenderness Extremity: Normal Capillary Refill, Normal Inspection, Normal Range of Motion (except left leg), Non Tender, No Calf Tenderness, No Pedal Edema Neurologic/Psychiatric: Alert, Oriented x3, No Motor/Sensory Deficits, 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 FIM Transfers Therapy Code Descriptions/Definitions Functional [place] Measure: 0=Not Assessed/NA 4=Minimal Assistance 1=Total Assistance 5=Supervision or Setup 2=Maximal Assistance 6=Modified [place] 3=Moderate Assistance 7=Complete IndependenceSCALE: Activities may be completed with or without assistive devices. 5-Jmneguspkx-ifpupfy completes the activity by him/herself with no assistance from a helper. 5-Set-up or Clean-up Assistance-helper sets up or cleans up; patient completes activity. [place] assists only prior to or following the activity. 4-Supervision or Touching Assistance-helper provides verbal cues and/or touching/steadying and/or contact guard assistance as patient completes activity. Assistance may be provided throughout the activity or intermittently. 3-Partial/Moderate Assistance-helper does LESS THAN HALF the effort. [place] l ifts, holds or supports trunk or limbs, but provides less than half the effort. 2-Substantial/Maximal Assistance-helper does MORE THAN HALF the effort. [place] lifts or holds trunk or limbs and provides more than half the effort. 9-Dypjbyhuy-efzjdx does ALL the effort. Patient does none of the effort to complete the activity. Or, the assistance of 2 or more helpers is required for the patient to complete the activity. If activity was not attempted, code reason: 7-Patient Refused. 9-Not Applicable-not attempted and the patient did not perform the activity before the current illness, exacerbation or injury. 10-Not Attempted due to Environmental Limitations-(lack of equipment, weather restraints, etc.). 88-Not Attempted due to Medical Conditions or Safety Concerns. Roll Left to Right (QC): 1 Sit to Lying (QC): 1 Sit to Stand (QC): 1 Chair/Rcv-js-Fkwcn Xfer(QC): 1 Car Transfer (QC): 88 (unsafe to attempt this date. ) Gait Training Does the Patient Walk?: No and Walking Goal IS indicated Walk 10 feet (QC): 88 Walk 50 ft with 2 Turns(QC): 88 Walk 150 ft (QC): 88 Walking 10ft/uneven surface-QC: 88 Wheelchair Training Does the Pt Use a Wheelchair?: Yes Wheel 50 ft with 2 turns (QC): 4 Wheel 150 ft (QC): 4 Type of Wheelchair: Manual Stair Training 1 Step (curb) (QC): 88 4 Steps (QC): 88 12 Steps (QC): 88 Balance Picking up an Object (QC): 88 ADL-Treatment Eating (QC): 5 Oral Hygiene (QC): 5 (set up at tray table.) Shower/Bathe Self (QC): 1 (assist x2 to wash buttocks. Pt able to wash upper body, assist with buttocks, periarea, and BLEs) Upper Body Dressing (QC): 4 (based on clincial judgement, CGA with task.) Lower Body Dressing (QC): 1 (based on clinical judgement, assist x2 for pant hike) On/Off Footwear (QC): 1 (based on clincial judgement, pt would require total assistance.) Toileting Hygiene (QC): 1 (based on clincial judgement, Pt would require assist x2 in stand, assist with all parts.) Assessment/Plan Assessment and Plan Assess & Plan/Chief Complaint REHAB/MEDICAL ASSESSMENT AND PLAN: REHAB IMPAIRMENT GROUP: Left femur fracture ETIOLOGIC DIAGNOSIS: Left femur fracture The comorbidities that impact the patients function and/or functional outcome by: severe DM, inoperable CAD, CRI, HTN, gastroparesis, CVA hx REHAB PLAN: The patient is being admitted to our comprehensive inpatient rehabilitation facility and can tolerate the intensity of service consisting of at least: 180 minutes of therapy a day, 5 out of 7 days a week Rehab treatment will consist of: PT and OT will focus on left extremity pain with requirements to increase ADLs and ambulation in order to return to independent living The patient/family has a good understanding of our discharge process and will benefit from an interdisciplinary inpatient rehabilitation program. The patient has potential to make improvement and is in need of at least two of the following multidisciplinary therapies including but not limited to physical, occupational, speech, and prosthetics and orthotics. Additionally the patient will need services from respiratory, nutritional services, wound care, psyc hology, etc. (Customize this to each patient). Given the patients complex condition and risk of further medical complications, rehabilitation services cannot be safely or effectively provided at a lower level of care such as a group home facility. BARRIERS TO DISCHARGE: Lives alone previously ESTIMATED LOS: 10 days DISPOSITION: Home with home care? RELEVANT CHANGES SINCE PREADMISSION SCREENING: I have compared the patients medical and functional status at the time of the preadmission screening and there are: no changes PROGNOSIS: Fair REHABILITATION GOALS: 1. PT and OT will focus on left lower extremity pain and decreased ROM with requirements to increase ADLs and ambulation in order to return to independent living All the above goals were reviewed with the patient and he/she is in agreement. By signing this document, I acknowledge that I have personally performed a full physical examination on this patient within 24 hours of admission to this inpatient rehabilitation facility and have determined the patient to be able to tolerate the above course of treatment at an intensive level for a reasonable period of time. I will be completing a detailed individualized Plan of Care for this patient by day #4 of the patients stay based upon the Preadmission Screen, the Post-Admission Evaluation, and the therapy evaluations. Assessment: Left femur fracture s/p repair Post op anemia h/o right sided weakness with facial droop not a tPa candidate per Stroke center [facility] MRI inconclusive for CVA 03/07/20 s/p CVA w/residual left facial droop and left upper and lower extremity weakness August 2018 IRF course DM poorly controlled CAD inoperable multi-vessel disease declined heart transplant at [facility] 2014 HTN HLP CRI Insomnia GERD Gastroparesis OP Neuropathy Hypoglycemia episodes ANNIE on CPAP Plan: Rehab protocol Insulin Pain control 09/14/2020: Pain control Change diet to regular diet Monitor closely 09/15/20: Monitor bowel and bladder CPAP Plavix and ASA restarted 09/16/2020: Monitor closely Monitor insulin with hypoglycemia Voltaren gel to the right knee 09/17/2020: Bowel regimen Monitor voiding Pain control 09/18/2020: Monitor blood sugar Fall risk 09/19/2020: Monitor blood sugar and blood pressure Bowel regimen 09/20/2020: Supportive care Needs skilled care (1) Coronary artery disease involving [place] coronary artery with angina pectoris Assessment & Plan: Her angina is under good control on 3 antianginal medications, aspirin, clopidogrel, and statin medication. She can follow-up with her regular propagation manager after discharge. (2) Essential hypertension Assessment & Plan: Blood pressures are intermittently elevated. Some of this may be related to her physical therapy. We will continue to monitor. (3) Mixed hyperlipidemia Assessment & Plan: Goal LDL less than 70 mg/dL. Continue statin medication. (4) Supraventricular tachycardia Status: Acute Assessment & Plan: No signs of recurrence. Continue beta-abel. JAG KIRKLAND DO Sep 20, 2020 06:01
[2020-09-20 06:34] LABS: BASOPHILS % (AUTO) 0 % (0-10); EOSINOPHILS # (AUTO) 0.2 10^3/uL (0.0-0.3); EOSINOPHILS % (AUTO) 3 % (0-10); HEMATOCRIT 32 % (35-52); HEMOGLOBIN 10.4 g/dL (11.5-16.0); LYMPHOCYTES % (AUTO) 24 % (12-44); MEAN CORPUSCULAR HEMOGLOBIN 34 pg (25-34); MEAN CORPUSCULAR HGB CONC 33 g/dL (32-36); MEAN CORPUSCULAR VOLUME 102 fL (80-99); MEAN PLATELET VOLUME 10.5 fL (9.0-12.2); MONOCYTES # (AUTO) 0.7 10^3/uL (0.0-1.0); MONOCYTES % (AUTO) 9 % (0-12); NEUTROPHILS # (AUTO) 5.2 10^3/uL (1.8-7.8); NEUTROPHILS % (AUTO) 64 % (42-75); PLATELET COUNT 264 10^3/uL (130-400); WHITE BLOOD COUNT 8.1 10^3/uL (4.3-11.0)
[2020-09-20 06:55] LABS: ALBUMIN 3.2 GM/DL (3.2-4.5); POTASSIUM 4.8 MMOL/L (3.6-5.0)
[2020-09-20 06:56] LABS: CALCIUM 10.1 MG/DL (8.5-10.1)
[2020-09-20 06:57] LABS: TOTAL PROTEIN 6.2 GM/DL (6.4-8.2)
[2020-09-20 06:59] LABS: BILIRUBIN,TOTAL 0.6 MG/DL (0.1-1.0)
[2020-09-20 07:01] LABS: CREATININE SERUM 1.92 MG/DL (0.60-1.30)
[2020-09-20] MEDS: amLODIPine 5 MG (NORVASC) TAB PO SCH (07:45)
[2020-09-20] MEDS: PANTOPRAZOLE 40 MG (PROTONIX) TAB PO SCH (07:45)
[2020-09-20] MEDS: ASPIRIN E.C. 81 MG (ECOTRIN) TAB PO SCH (07:45)
[2020-09-20] MEDS: RANOLAZINE ER 500 MG TAB (RANEXA) PO SCH ×2 (07:45→20:45)
[2020-09-20] MEDS: ATENOLOL 25 MG (TENORMIN) TAB PO SCH (07:45)
[2020-09-20] MEDS: OXYBUTYNIN (DITROPAN) 5 MG TAB PO SCH ×2 (07:46→20:45)
[2020-09-20] MEDS: DOCUSATE SODIUM 100 MG (COLACE) CAP PO SCH ×2 (07:46→20:45)
[2020-09-20] MEDS: ALLOPURINOL 100 MG (ZYLOPRIM) TAB PO SCH (07:46)
[2020-09-20] MEDS: CLOPIDOGREL 75 MG (PLAVIX) TABLET PO SCH (07:46)
[2020-09-20] MEDS: LOSARTAN 100 MG (COZAAR) TABLET PO SCH (07:46)
[2020-09-20 07:52] VITALS: BP 164/85
[2020-09-20] MEDS: METOCLOPRAMIDE 10 MG (REGLAN) TAB PO PRN (07:52)
[2020-09-20] MEDS: DICLOFENAC 1% GEL 100 GM (VOLTAREN) TUBE TOP SCH ×4 (07:53→20:46)
[2020-09-20] MEDS: polyethylene glycoL POWDER 17 GM (MIRALAX) PACK PO SCH ×2 (07:53→20:45)
[2020-09-20] MEDS: SENNA W/DOCUSATE (SENOKOT S) TABLET PO SCH ×2 (07:53→20:46)
--- NOTE | 2020-09-20 10:05 | Occupational Ther Daily Note ---
OT Current Status-Daily Note Subjective Pt seated upright in recliner, agreeable to OT tx. Reports some pain in L hip, but did not verbalize pain rating. Mental Status/Objective Patient Orientation: Person, Confused, Place, Situation ADL-Treatment Therapy Code Descriptions/Definitions Functional [place] Measure: 0=Not Assessed/NA 4=Minimal Assistance 1=Total Assistance 5=Supervision or Setup 2=Maximal Assistance 6=Modified [place] 3=Moderate Assistance 7=Complete IndependenceSCALE: Activities may be completed with or without assistive devices. 2-Cfyacvvtby-trvtvyq completes the activity by him/herself with no assistance from a helper. 5-Set-up or Clean-up Assistance-helper sets up or cleans up; patient completes activity. Gilbert assists only prior to or following the activity. 4-Supervision or Touching Assistance-helper provides verbal cues and/or touching/steadying and/or contact guard assistance as patient completes activity. Assistance may be provided throughout the activity or intermittently. 3-Partial/Moderate Assistance-helper does LESS THAN HALF the effort. Gilbert lifts, holds or supports trunk or limbs, but provides less than half the effort. 2-Substantial/Maximal Assistance-helper does MORE THAN HALF the effort. Gilbert lifts or holds trunk or limbs and provides more than half the effort. 8-Bffapiusr-jsjejr does ALL the effort. Patient does none of the effort to complete the activity. Or, the assistance of 2 or more helpers is required for the patient to complete the activity. If activity was not attempted, code reason: 7-Patient Refused. 9-Not Applicable-not attempted and the patient did not perform the activity before the current illness, exacerbation or injury. 10-Not Attempted due to Environmental Limitations-(lack of equipment, weather restraints, etc.). 88-Not Attempted due to Medical Conditions or Safety Concerns. Shower/Bathe Self (QC): 1 (Sponge bath complete. Assist x2 required to wash buttocks. ) Upper Body Dressing (QC): 5 (set up assist with basting puller shirt.) Lower Body Dressing (QC): 1 (assist x2 in stand for pant hike. Mod A with threading LEs with AE) On/Off Footwear: 2 (Max A donning/doffing gripper socks using AE, dependent with TEDhose) Other Treatment Pt seated in w/c, agreeable to OT Tx. SBA with shower cap to wash hair, pt required min cues for sequencing. Pt completed sponge bath seated in w/c, able to wash UEs, chest/abdomen, periarea and thighs. OT educated pt on LH sponge for lower legs/feet, pt required assist for thoroughness. Assist x2 in stand to wash buttocks. Pt donned UE clothing with set up assistance. AE education to thread LEs into pants, assist x2 for pant hike. Assist x2 transfer to recliner. Post tx, pt seated in recliner, call light in reach and all needs met. Education OT Patient Education: Correct positioning, Modified ADL techniques, Progress toward Goal/Update tx plan, Purpose of tx/functional activities, Rehab process Teaching Recipient: Patient Teaching Methods: Discussion Response to Teaching: Verbalize Understanding OT Short Term Goals Short Term Goals Time Frame: Sep 24, 2020 Toileting hygiene: 3 Lower body dressin Putting on/taking off footwear: 3 OT Entrance Guard Goals Longterm Goals Time Frame: Oct 08, 2020 Eating (QC): 6 Oral Hygiene (QC): 6 Toileting Hygiene (QC): 4 Shower/Bathe Self (QC): 4 Upper Body Dressing (QC): 5 Lower Body Dressing (QC): 4 On/Off Footwear (QC): 4 Additional Goals: 1-Demonstrate ADL Tasks, 2-Verbalize Understanding, 3-Improve Strength/Ruthie 1=Demonstrate adherence to instructed precautions during ADL tasks. 2=Patient will verbalize/demonstrate understanding of assistive devices/modifications for ADL. 3=Patient will improve strength/tolerance for activity to enable patient to pe rform ADL's. OT Education/Plan Problem List/Assessment Assessment: Decreased Activ Tolerance, Decreased UE Strength, Impaired Funct Balance, Impaired I ADL's, Impaired Self-Care Skills, Restricted Funct UE ROM Discharge Recommendations Plan/Recommendations: Continue POC Treatment Plan/Plan of Care Patient would benefit from OT for education, treatment and training to promote independence in ADL's, mobility, safety and/or upper extremity function for ADL's. Plan of Care: ADL Retraining, Functional Mobility, Group Exercise/Act as Ind, UE Funct Exercise/Act Treatment Duration: Oct 08, 2020 Frequency: At least 5 of 7 days/Wk (IRF) Estimated Hrs Per Day: 1.5 hours per day Agreement: Yes Rehab Potential: Good Time/GCodes Start Time: 09:00 Stop Time: 10:00 Total Time Billed (hr/min): 60 Billed Treatment Time 1, ADL 4 HARLEY LOCKE OT Sep 20, 2020 10:05
--- NOTE | 2020-09-20 10:45 | Physical Therapy Daily Note ---
PT Daily Note-Current Subjective Reports she had a dream last nigth and thought she was falling out of bed. Agrees to PT this date. Pain Numeric Pain Scale: 7 Location: Left Location Body Site: Hip Pain Description: Ache Mental Status Patient Orientation: Person, Confused (slightly), Place, Time, Situation Transfers SCALE: Activities may be completed with or without assistive devices. 5-Qzagjdhxbc-pupesjc completes the activity by him/herself with no assistance from a helper. 5-Set-up or Clean-up Assistance-helper sets up or cleans up; patient completes activity. Webster assists only prior to or following the activity. 4-Supervision or Touching Assistance-helper provides verbal cues and/or touching/steadying and/or contact guard assistance as patient completes activity. Assistance may be provided throughout the activity or intermittently. 3-Partial/Moderate Assistance-helper does LESS THAN HALF the effort. Webster lifts, holds or supports trunk or limbs, but provides less than half the effort. 2-Substantial/Maximal Assistance-helper does MORE THAN HALF the effort. Webster lifts or holds trunk or limbs and provides more than half the effort. 9-Cuwxeojtj-fcjpjg does ALL the effort. Patient does none of the effort to complete the activity. Or, the assistance of 2 or more helpers is required for the patient to complete the activity. If activity was not attempted, code reason: 7-Patient Refused. 9-Not Applicable-not attempted and the patient did not perform the activity before the current illness, exacerbation or injury. 10-Not Attempted due to Environmental Limitations-(lack of equipment, weather restraints, etc.). 88-Not Attempted due to Medical Conditions or Safety Concerns. Roll Left & Right (QC): 3 Lying to Sitting/Side of Bed(Q: 3 (assist with left LE and skilled cues for sequencing and technique.) Sit to Stand (QC): 1 Chair/Ebu-za-Zqfhs Xfer(QC): 1 Toilet Transfer (QC): 1 (Transfer on/off commode with dep assist of 1; dependent for mariza care and clothing managementl ) Pt is dependent for sit to stand and to transfer (dance style technique). Able to bear weight to stand but unable to take steps; unable to push up from the chair, holds the therapist. Sit to tube winder // bars with max assist, pt pulling up on the bars. Pt able to stand x 15-20 sec x 5 reps in // bars with max assist to remain standing and verbal/tactile cues for hip extension and to promote WB through the left LE. Weight Bearing Right Lower Extremity: Right Full Weight Bearing Left Lower Extremity: Left Weight Bearing/Tolerated Wheelchair Training Wheel 50 ft with 2 turns (QC): 4 Type of Wheelchair: Manual skilled cues to turn and back; cues to avoid obstacles. Exercises Seated Therapy Exercises: Ankle pumps, Long arc quads Seated Reps: 5 (2 sets to promote LE strength and mobility) Assessment Current Status: Fair Progress Remains dependent for sit to stand and to transfer; difficulty with WB through left LE; bed mobility has improved but still needs assist and cuing. WC mobiltiy is progressing as well. Limited by pain and fearful of WB left and unable to initiate taking a step. PT Short Term Goals Short Term Goals Time Frame: Sep 27, 2020 Sit to lyin Lying to sitting on side of be: 3 Sit to stand: 3 Walk 50 feet with two turns: 3 PT Group Home Goals Group Home Goals PT Group Home Goals Time Frame: Oct 11, 2020 Roll Left & Right (QC): 6 Sit to Lying (QC): 6 Lying-Sitting on Side/Bed(QC): 6 Sit to Stand (QC): 6 Chair/Mzn-vx-Uzgnx Xfer(QC): 6 Toilet Transfer (QC): 6 Car Transfer (QC): 5 Does the Patient Walk: No and Walking Goal IS indicated Walk 10 feet (QC): 6 Walk 50ft with 2 Turns (QC): 6 Walk 150 ft (QC): 6 Walking 10ft on Uneven Surface: 5 1 Step (curb) (QC): 6 4 Steps (QC): 6 12 Steps (QC): 9 Picking up an Object (QC): 4 Does the Pt use WC or Scooter?: No Wheel 50 feet with 2 turns (QC: 9 Wheel 150 feet: 9 PT Plan Problem List Problem List: Activity Tolerance, Functional Strength, Safety, Balance, Gait, Transfer, Bed Mobility Treatment/Plan Treatment Plan: Continue Plan of Care Treatment Plan: Bed Mobility, Education, Functional Activity Ruthie, Functional Strength, Group Therapy, Gait, Safety, Therapeutic Exercise, Transfers Treatment Duration: Oct 11, 2020 Frequency: At least 5 of 7 days/Wk (IRF) Estimated Hrs Per Day: 1.5 hours per day Patient and/or Family Agrees t: Yes Safety Risks/Education Patient Education: Transfer Techniques, Safety Issues Teaching Recipient: Patient Teaching Methods: Demonstration, Discussion Response to Teaching: Reinforcement Needed Time/GCodes Time In: 800 Time Out: 845 Total Billed Treatment Time: 45 Total Billed Treatment visit FA 30 WC 15 SARABJIT SALGADO PT Sep 20, 2020 10:45
--- NOTE | 2020-09-20 11:39 | Speech Therapy Daily Note ---
Speech Daily Progress Note Subjective Date Seen by Provider: Sep 20, 2020 Time Seen by Provider: 00:30 Patient was resting in her recliner following her other therapies. Objective Patient completed safe oral intake strategies training with 90% given 10% verbal/visual cues. Patient completed cognitive tasks at 90% with minimal cues. Assessment Assessment Current Status: Good Progress Treatment Plan Continue Plan of Care Speech Short Term Goals Short Term Goals Short Term Goals 1) Patient will complete a series of cognitive tasks related to safety awareness for her daily needs at 80% or greater with minimal tasks. 2) Patient will utilize memory strategies as trained for daily routine at 80% or greater with minimal tasks. Speech Receiving Inspector Goals Detention Goals Patient will improve cognitive function and safety awareness in order to return to SNF with higher level of function. Speech-Plan Patient/Family Goals Patient/Family Goals: Patient plans on returning to her [facility] apartment upon discharge. Treatment Plan Speech Therapy Treatment Plan: Continue Plan of Care Patient discussed change in diet consistency to a Dysphagia II due to "numbness" in her left buccal area since her previous CVA. She is currently on a regular, however she has decided to stay on the regular texture and just utilize compensatory strategies for safe oral intake. Treatment Duration: Sep 24, 2020 Frequency: 4 times per week (Patient will receive skilled ST 4-5x per week) Estimated Hrs Per Day: .5 hour per day (Patient will receive skilled ST 4-5x per week) Rehab Potential: Good Barriers to Learning: Patient's recent decline in function including cognitive function. Pt/Family Agrees to Plan: Yes Safety Risks/Education Teaching Recipient: Patient Teaching Methods: Demonstration, Discussion Response to Teaching: Verbalize Understanding, Return Demonstration Education Topics Provided: Safety with all oral intake strategies, diet level Time Speech Therapy Time In: 11:00 Speech Therapy Time Out: 11:30 Total Billed Time: 30 Billed Treatment Time 1, SLTS, DYSEVS, DYST No NESS GAMBOA Sep 20, 2020 11:39
--- NOTE | 2020-09-20 14:45 | Therapy Group Daily Note ---
Therapy Daily Group Note Patient Education Topic Fall Prevention, Exercises Exercises LE Seated Exercise, UE Exercise Session Ratio (pt:therapist): 4:1 Goal of Session: Home Safety Strategies, UE/LE Strengthing, Safety with Transfers Goal Met for this Session: Yes Pt Benefit of Group: Contributions to Others, Increased Functional Safety, Increased Functional Strength, Socialization Other/Notes This group session was a combination of social interaction, functional U/LE strength training, cognition with reading, understanding and demonstrating an exercise to the group, recall of favorite events/activities, as well as U/LE strengthening. Education on fall prevention and safety completed as well. This patient was able to interact appropriately with good recall of safety and past events. Pt able to read and demonstrate her exercise correctly. Interacts appropriately and seems to enjoy group therapy. Start Time: 13:00 Stop Time: 14:00 Total Billed Treatment Time: 60 Total Billed Treatment visit GRP 60 SARABJIT SALGADO PT Sep 20, 2020 14:45
[2020-09-20 20:00] VITALS: BP 123/75
[2020-09-20] MEDS: SERTRALINE 50 MG (ZOLOFT) TABLET PO SCH (20:45)
[2020-09-20] MEDS: MELATONIN 3 MG TABLET PO PRN (22:24)
[2020-09-21] MEDS: oxyCODONE/APAP 5/325MG (PERCOCET 5) TABLET PO PRN ×5 (04:28→17:36)
--- NOTE | 2020-09-21 05:26 | PM&R Progress Note ---
Subjective HPI/CC On Admission Date Seen by Provider: Sep 21, 2020 Time Seen by Provider: 09:00 Pt is a 65yoCF with a PMH of HTN, IDDMII, recent CVA who presented to the ER due to a fall and was found to have a displaced hip fracture. She underwent operative repair by Dr Villa. She normally resides at [facility] and is ambulating but have deficits from her recent CVA. She is being admitted to IRU for intensive therapy. Subjective/Events-last exam 09/21/2020: Bowels moved five days ago An enema may be needed Blood sugar is 192 Needs skilled care 09/20/2020: Pt doing pretty well Creatinine 1.92 Bowels are not moving as well as they should be Sugars are okay May need skilled care 09/19/2020: Patient feels pretty good Moving around better Stand and pivot is not very smooth Glucometers 134 today Continuous blood sugar monitor is being used Eats a lot No bowel movement today yet 09/18/2020: This visit is via video chat due to Covid related restriction for this provider Patient doing well today Bowels moved 2 days ago Reglan will be given at her request Able to use her continuous blood sugar monitor Stand and pivot is a struggle May need skilled at discharge 09/17/2020: This visit is via video chat due to Covid related restriction for this provider Patient doing pretty well Holding insulin for sugar less than 135 to prevent hypoglycemia Voiding pretty well 300-400 cc at a time Increased pain with therapy but she is doing a lot better today 09/16/2020: This visit is via video chat due to Covid related restriction for this provider Patient doing pretty well today Plavix and aspirin back on board Dr. Villa checked her right knee and everything looked okay probably bruised Voltaren gel will be attempted to put on the right knee to help her Bladder scan may be required since Leiva catheter discontinued and she may be retaining Standing in parallel bars today 09/15/2020: This visit is via video chat due to Covid related restriction for this provider Patient having a tough day Not moving around well 2-3 person assist today Plavix and ASA had been held since OR so will restart that because she is reported feeling like she is having TIA's Incontinent of bowel and bladder since DC catheter, she was having these issues before fall No BM since 09/10 so will give more meds 09/14/2020: This visit is via video chat due to Covid related restriction for this provider Patient settling in well Changed to a regular diet that is what she eats at home Creatinine stable at 1.6 with chronic kidney disease Delay in cognition per nursing staff but she seems to be doing pretty well today Having some knee pain on the right side unsure if she fell on it No bowels are moving yet last one was 09/10/2020 Check meds and labs Check Accu-Cheks Review of Systems General: Fatigue, Malaise Neurological: Weakness, Incoordination Objective Exam Vital Signs Vital Signs Date Time Temp Pulse Resp B/P (MAP) Pulse Ox O2 Delivery O2 Flow Rate FiO2 09/21/20 20:20 Room Air 09/21/20 20:00 36.4 69 12 138/82 (100) 94 09/21/20 06:41 2.00 Capillary Refill : General Appearance: No Apparent Distress, WD/WN, Chronically ill, Obese HEENT: PERRL/EOMI, Normal ENT Inspection, Pharynx Normal, Moist Mucous Membranes Neck: Full Range of Motion, Normal Inspection, Non Tender Respiratory: Chest Non Tender, Lungs Clear, Normal Breath Sounds, No Accessory Muscle Use, No Respiratory Distress Cardiovascular: Regular Rate, Rhythm, No Edema, No Gallop, No JVD, No Murmur, Normal Peripheral Pulses Gastrointestinal: Normal Bowel Sounds, No Organomegaly, No Pulsatile Mass, Non Tender, Soft Back: Normal Inspection, No CVA Tenderness, No Vertebral Tenderness Extremity: Normal Capillary Refill, Normal Inspection, Normal Range of Motion (except left leg), Non Tender, No Calf Tenderness, No Pedal Edema Neurologic/Psychiatric: Alert, Oriented x3, No Motor/Sensory Deficits, 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 FIM Transfers Therapy Code Descriptions/Definitions Functional [place] Measure: 0=Not Assessed/NA 4=Minimal Assistance 1=Total Assistance 5=Supervision or Setup 2=Maximal Assistance 6=Modified [place] 3=Moderate Assistance 7=Complete IndependenceSCALE: Activities may be completed with or without assistive devices. 9-Dglczyhzno-siomoke completes the activity by him/herself with no assistance from a helper. 5-Set-up or Clean-up Assistance-helper sets up or cleans up; patient completes activity. [place] assists only prior to or following the activity. 4-Supervision or Touching Assistance-helper provides verbal cues and/or touching/steadying and/or contact guard assistance as patient completes activity. Assistance may be provided throughout the activity or intermittently. 3-Partial/Moderate Assistance-helper does LESS THAN HALF the effort. V[place] lifts, holds or supports trunk or limbs, but provides less than half the effort. 2-Substantial/Maximal Assistance-helper does MORE THAN HALF the effort. [place] lifts or holds trunk or limbs and provides more than half the effort. 2-Stcwnybew-iedzqw does ALL the effort. Patient does none of the effort to c omplete the activity. Or, the assistance of 2 or more helpers is required for the patient to complete the activity. If activity was not attempted, code reason: 7-Patient Refused. 9-Not Applicable-not attempted and the patient did not perform the activity before the current illness, exacerbation or injury. 10-Not Attempted due to Environmental Limitations-(lack of equipment, weather restraints, etc.). 88-Not Attempted due to Medical Conditions or Safety Concerns. Roll Left to Right (QC): 3 Sit to Lying (QC): 1 Sit to Stand (QC): 1 Chair/Jcv-pw-Mpwrh Xfer(QC): 1 Car Transfer (QC): 88 (unsafe to attempt this date. ) Gait Training Does the Patient Walk?: No and Walking Goal IS indicated Walk 10 feet (QC): 88 Walk 50 ft with 2 Turns(QC): 88 Walk 150 ft (QC): 88 Walking 10ft/uneven surface-QC: 88 Wheelchair Training Does the Pt Use a Wheelchair?: Yes Wheel 50 ft with 2 turns (QC): 4 Wheel 150 ft (QC): 4 Type of Wheelchair: Manual Stair Training 1 Step (curb) (QC): 88 4 Steps (QC): 88 12 Steps (QC): 88 Balance Picking up an Object (QC): 88 ADL-Treatment Eating (QC): 5 Oral Hygiene (QC): 5 (set up at tray table.) Shower/Bathe Self (QC): 1 (Sponge bath complete. Assist x2 required to wash buttocks. ) Upper Body Dressing (QC): 5 (set up assist with plant puller shirt.) Lower Body Dressing (QC): 1 (assist x2 in stand for pant hike. Mod A with threading LEs with AE) On/Off Footwear (QC): 2 (Max A donning/doffing gripper socks using AE, dependent with TEDhose) Toileting Hygiene (QC): 1 (based on clincial judgement, Pt would require assist x2 in stand, assist with all parts.) Assessment/Plan Assessment and Plan Assess & Plan/Chief Complaint REHAB/MEDICAL ASSESSMENT AND PLAN: REHAB IMPAIRMENT GROUP: Left femur fracture ETIOLOGIC DIAGNOSIS: Left femur fracture The comorbidities that impact the patients function and/or functional outcome by: severe DM, inoperable CAD, CRI, HTN, gastroparesis, CVA hx REHAB PLAN: The patient is being admitted to our comprehensive inpatient rehabilitation [facility] and can tolerate the intensity of service consisting of at least: 180 minutes of therapy a day, 5 out of 7 days a week Rehab treatment will consist of: PT and OT will focus on left extremity pain with requirements to increase ADLs and ambulation in order to return to independent living The patient/family has a good understanding of our discharge process and will benefit from an interdisciplinary inpatient rehabilitation program. The patient has potential to make improvement and is in need of at least two of the following multidisciplinary therapies including but not limited to physical, occupational, speech, and prosthetics and orthotics. Additionally the patient will need services from respiratory, nutritional services, wound care, psychology, etc. (Customize this to each patient). Given the patients complex condition and risk of further medical complications, rehabilitation services cannot be safely or effectively provided at a lower level of care such as a nursing home facility. BARRIERS TO DISCHARGE: Lives alone previously ESTIMATED LOS: 10 days DISPOSITION: Home with home care? RELEVANT CHANGES SINCE PREADMISSION SCREENING: I have compared the patients medical and functional status at the time of the preadmission screening and there are: no changes PROGNOSIS: Fair REHABILITATION GOALS: 1. PT and OT will focus on left lower extremity pain and decreased ROM with requirements to increase ADLs and ambulation in order to return to independent living All the above goals were reviewed with the patient and he/she is in agreement. By signing this document, I acknowledge that I have personally performed a full physical examination on this patient within 24 hours of admission to this inpatient rehabilitation facility and have determined the patient to be able to tolerate the above course of treatment at an intensive level for a reasonable period of time. I will be completing a detailed individualized Plan of Care for this patient by day #4 of the patients stay based upon the Preadmission Screen, the Post-Admission Evaluation, and the therapy evaluations. Assessment: Left femur fracture s/p repair Post op anemia h/o right sided weakness with facial droop not a tPa candidate per Stroke center [facility] MRI inconclusive for CVA 03/07/20 s/p CVA w/residual left facial droop and left upper and lower extremity weakness August 2018 IRF course DM poorly controlled CAD inoperable multi-vessel disease declined heart transplant at [facility] 2014 HTN HLP CRI Insomnia GERD Gastroparesis OP Neuropathy Hypoglycemia episodes ANNIE on CPAP Plan: Rehab protocol Insulin Pain control 09/14/2020: Pain control Change diet to regular diet Monitor closely 09/15/20: Monitor bowel and bladder CPAP Plavix and ASA restarted 09/16/2020: Monitor closely Monitor insulin with hypoglycemia Voltaren gel to the right knee 09/17/2020: Bowel regimen Monitor voiding Pain control 09/18/2020: Monitor blood sugar Fall risk 09/19/2020: Monitor blood sugar and blood pressure Bowel regimen 09/20/2020: Supportive care Needs skilled care 09/21/2020: Supportive care Need skilled placement (1) Coronary artery disease involving apache coronary artery with angina pectoris Assessment & Plan: Her angina is under good control on 3 antianginal medications, aspirin, clopidogrel, and statin medication. She can follow-up with her regular game operator after discharge. (2) Essential hypertension Assessment & Plan: Blood pressures are intermittently elevated. Some of this may be related to her physical therapy. We will continue to monitor. (3) Mixed hyperlipidemia Assessment & Plan: Goal LDL less than 70 mg/dL. Continue statin medication. (4) Supraventricular tachycardia Status: Acute Assessment & Plan: No signs of recurrence. Continue beta-abel. JAG KIRKLAND DO Sep 21, 2020 05:26
[2020-09-21] MEDS: inSUlin ASPART (NovoLOG) 1 UNIT/0.01 ML (CHARGE PER UNIT) SC SCH ×4 (05:41→21:05)
[2020-09-21] MEDS: amLODIPine 5 MG (NORVASC) TAB PO SCH (07:25)
[2020-09-21] MEDS: ATENOLOL 25 MG (TENORMIN) TAB PO SCH (07:25)
[2020-09-21] MEDS: RANOLAZINE ER 500 MG TAB (RANEXA) PO SCH ×2 (07:25→21:45)
[2020-09-21] MEDS: DOCUSATE SODIUM 100 MG (COLACE) CAP PO SCH ×3 (07:25→21:53)
[2020-09-21] MEDS: ASPIRIN E.C. 81 MG (ECOTRIN) TAB PO SCH (07:25)
[2020-09-21] MEDS: LOSARTAN 100 MG (COZAAR) TABLET PO SCH (07:25)
[2020-09-21] MEDS: SENNA W/DOCUSATE (SENOKOT S) TABLET PO SCH ×3 (07:26→21:53)
[2020-09-21] MEDS: PANTOPRAZOLE 40 MG (PROTONIX) TAB PO SCH (07:26)
[2020-09-21] MEDS: BISACODYL 10 MG SUPP (DULCOLAX) PR PRN (07:26)
[2020-09-21] MEDS: OXYBUTYNIN (DITROPAN) 5 MG TAB PO SCH ×2 (07:27→21:46)
[2020-09-21] MEDS: ALLOPURINOL 100 MG (ZYLOPRIM) TAB PO SCH (07:27)
[2020-09-21] MEDS: CLOPIDOGREL 75 MG (PLAVIX) TABLET PO SCH (07:27)
[2020-09-21] MEDS: DICLOFENAC 1% GEL 100 GM (VOLTAREN) TUBE TOP SCH ×4 (07:27→21:46)
[2020-09-21] MEDS: inSUlin (REGULAR) HUMAN 1 UNIT/0.01 ML (CHARGE PER UNIT) SC SCH ×3 (07:28→18:14)
[2020-09-21] MEDS: polyethylene glycoL POWDER 17 GM (MIRALAX) PACK PO SCH ×2 (07:30→21:50)
[2020-09-21 08:00] VITALS: BP 191/88
--- NOTE | 2020-09-21 09:36 | Occupational Ther Daily Note ---
OT Current Status-Daily Note Subjective Pt seated upright in recliner, agreeable to OT tx. Rates overall pain as "better" today, when asked to rate her pain, pt did not provide rating. Mental Status/Objective Patient Orientation: Person, Confused (slightly), Place, Situation ADL-Treatment Therapy Code Descriptions/Definitions Functional [place] Measure: 0=Not Assessed/NA 4=Minimal Assistance 1=Total Assistance 5=Supervision or Setup 2=Maximal Assistance 6=Modified [place] 3=Moderate Assistance 7=Complete IndependenceSCALE: Activities may be completed with or without assistive devices. 1-Tfyqfbampn-ebhvgsr completes the activity by him/herself with no assistance from a helper. 5-Set-up or Clean-up Assistance-helper sets up or cleans up; patient completes activity. [place] assists only prior to or following the activity. 4-Supervision or Touching Assistance-helper provides verbal cues and/or touching/steadying and/or contact guard assistance as patient completes activity. Assistance may be provided throughout the activity or intermittently. 3-Partial/Moderate Assistance-helper does LESS THAN HALF the effort. [place] lifts, holds or supports trunk or limbs, but provides less than half the effort. 2-Substantial/Maximal Assistance-helper does MORE THAN HALF the effort. [place] lifts or holds trunk or limbs and provides more than half the effort. 8-Htwpbkhlu-kkcfne does ALL the effort. Patient does none of the effort to complete the activity. Or, the assistance of 2 or more helpers is required for the patient to complete the activity. If activity was not attempted, code reason: 7-Patient Refused. 9-Not Applicable-not attempted and the patient did not perform the activity before the current illness, exacerbation or injury. 10-Not Attempted due to Environmental Limitations-(lack of equipment, weather restraints, etc.). 88-Not Attempted due to Medical Conditions or Safety Concerns. Oral Hygiene (QC): 6 (IND seated at sink.) Other Treatment [id number] Pt seated in recliner, sit to stand lift used to transfer pt to w/c. Pt sat at sink to comb hair, brush teeth, and wash face independently. Pt propelled w/c to therapy gym, min A with turns and to maintain straight path. Pt completed arm bike x10 mins, min resistance, in order to increase BUE strength and activity tolerance. Pt took rest breaks as needed and min cues to continue task. Pt instructed to remove beads from moderate resistance theraputty in order to increase fine motor strength and coordination. [id number] OT/PT cotreat due to skill of 2 clincians required which a rehabilitation engineer could not perform in order to coordinate UE/LEs, decrease fall risk, focus on higher level balance tasks, and due to pt's limitations in strength, activity tolerance, pain, mobility and transfers. OT focused on UE placement, skilled cues for sequencing and safety, and assistance with transfers. PT focused on LE placement, gross overall movement, transfers and mobility. Pt stood in parallel bars x3 trials, ~5-10 seconds each trial, then pt requests to sit. With 1 trial, pt able to weight shirt towards R then L side before requesting to sit. Post tx, pt seated in therapy gym, PT present to continue tx, all needs met. Education OT Patient Education: Correct positioning, Energy conservation, Exercise program, Modified ADL techniques, Progress toward Goal/Update tx plan, Purpose of tx/functional activities, Rehab process Teaching Recipient: Patient Teaching Methods: Discussion Response to Teaching: Verbalize Understanding OT Short Term Goals Short Term Goals Time Frame: Sep 24, 2020 Toileting hygiene: 3 Lower body dressin Putting on/taking off footwear: 3 OT Merchandising Representative Goals Alf Goals Time Frame: Oct 08, 2020 Eating (QC): 6 Oral Hygiene (QC): 6 Toileting Hygiene (QC): 4 Shower/Bathe Self (QC): 4 Upper Body Dressing (QC): 5 Lower Body Dressing (QC): 4 On/Off Footwear (QC): 4 Additional Goals: 1-Demonstrate ADL Tasks, 2-Verbalize Understanding, 3- ImproveStrength/Ruthie 1=Demonstrate adherence to instructed precautions during ADL tasks. 2=Patient will verbalize/demonstrate understanding of assistive devices/modifications for ADL. 3=Patient will improve strength/tolerance for activity to enable patient to perform ADL's. OT Education/Plan Problem List/Assessment Assessment: Decreased Activ Tolerance, Decreased Safety Aware, Decreased UE Strength, Dependent Transfers, Impaired Cognition, Impaired Funct Balance, Impaired I ADL's, Impaired Self-Care Skills, Restricted Funct UE ROM Discharge Recommendations Plan/Recommendations: Continue POC Treatment Plan/Plan of Care Patient would benefit from OT for education, treatment and training to promote independence in ADL's, mobility, safety and/or upper extremity function for ADL's. Plan of Care: ADL Retraining, Functional Mobility, Group Exercise/Act as Ind, UE Funct Exercise/Act Treatment Duration: Oct 08, 2020 Frequency: At least 5 of 7 days/Wk (IRF) Estimated Hrs Per Day: 1.5 hours per day Agreement: Yes Rehab Potential: Good Time/GCodes Start Time: 09:00 Stop Time: 10:15 Total Time Billed (hr/min): 75 Billed Treatment Time [id number] OT tx, [id number] OT/PT cotreat 1, ADL (15'), EX (10'), FA 3 ( 50') HARLEY LOCKE OT Sep 21, 2020 09:36
--- NOTE | 2020-09-21 11:07 | Physical Therapy Daily Note ---
PT Daily Note-Current Subjective Pt sitting in [facility] in Therapy Gym working with OT upon arrival. Pain Numeric Pain Scale: 9 Location: Left Location Body Site: Hip Pain Description: Sharp Mental Status Patient Orientation: Person, Place Transfers SCALE: Activities may be completed with or without assistive devices. 2-Dirylqnqro-exaxzte completes the activity by him/herself with no assistance from a helper. 5-Set-up or Clean-up Assistance-helper sets up or cleans up; patient completes activity. [place] assists only prior to or following the activity. 4-Supervision or Touching Assistance-helper provides verbal cues and/or touching/steadying and/or contact guard assistance as patient completes activity. Assistance may be provided throughout the activity or intermittently. 3-Partial/Moderate Assistance-helper does LESS THAN HALF the effort. [place] lifts, holds or supports trunk or limbs, but provides less than half the effort. 2-Substantial/Maximal Assistance-helper does MORE THAN HALF the effort. [place] lifts or holds trunk or limbs and provides more than half the effort. 8-Cahjuxdro-xvkwyn does ALL the effort. Patient does none of the effort to complete the activity. Or, the assistance of 2 or more helpers is required for the patient to complete the activity. If activity was not attempted, code reason: 7-Patient Refused. 9-Not Applicable-not attempted and the patient did not perform the activity before the current illness, exacerbation or injury. 10-Not Attempted due to Environmental Limitations-(lack of equipment, weather restraints, etc.). 88-Not Attempted due to Medical Conditions or Safety Concerns. Lying to Sitting/Side of Bed(Q: 2 Sit to Stand (QC): 3 Chair/Uew-ll-Wfbnj Xfer(QC): 3 Weight Bearing Right Lower Extremity: Right Full Weight Bearing Left Lower Extremity: Left Weight Bearing/Tolerated Wheelchair Training Does the Pt Use a Wheelchair?: Yes Wheel 50 ft with 2 turns (QC): 4 Type of Wheelchair: Manual Exercises Standing: Weight shifts Treatments [id number] OT/PT cotreat due to skill of 2 clincians required which a facility rehab director could not perform in order to coordinate UE/LEs, decrease fall risk, focus on higher level balance tasks, and due to pt's limitations in strength, activity tolerance, pain, mobility and transfers. OT focused on UE placement, skilled cues for sequencing and safety, and assistance with transfers. PT focused on LE placement, gross overall movement, transfers and mobility. Pt stood in parallel bars x3 trials, ~5-10 seconds each trial, then pt requests to sit. With 1 trial, pt able to weight shirt towards R then L side before requesting to sit. [id number]: Pt completes Supine Ex on Therapy mat using bolster for comfort. Pt reports increased pain with movement of L LE. Pt transfers to EOB then to [facility] before propelling to room and transferring back to recliner to rest & order lunch. All needs met, call light in hand. [id number]: Pt is finishing lunch upon arrival. CAN INTAKE WORKER assists with transfer/bed mobility to turn for Wound Care Nurse to assess and address sacral wound. Pt resting at end of tx with all needs met, call light in hand. Assessment Current Status: Fair Progress Pt was very drowsy as she reported waking up early in AM and couldn't get back to sleep. Pt is limited by pain at this time. PT Short Term Goals Short Term Goals Time Frame: Sep 27, 2020 Sit to lyin Lying to sitting on side of be: 3 Sit to stand: 3 Walk 50 feet with two turns: 3 PT Customer Service Technician Goals Longterm Goals PT Longterm Goals Time Frame: Oct 11, 2020 Roll Left & Right (QC): 6 Sit to Lying (QC): 6 Lying-Sitting on Side/Bed(QC): 6 Sit to Stand (QC): 6 Chair/Ule-vs-Gcoto Xfer(QC): 6 Toilet Transfer (QC): 6 Car Transfer (QC): 5 Does the Patient Walk: No and Walking Goal IS indicated Walk 10 feet (QC): 6 Walk 50ft with 2 Turns (QC): 6 Walk 150 ft (QC): 6 Walking 10ft on Uneven Surface: 5 1 Step (curb) (QC): 6 4 Steps (QC): 6 12 Steps (QC): 9 Picking up an Object (QC): 4 Does the Pt use WC or Scooter?: No Wheel 50 feet with 2 turns (QC: 9 Wheel 150 feet: 9 PT Plan Problem List Problem List: Activity Tolerance, Functional Strength, Balance, Gait, Transfer Treatment/Plan Treatment Plan: Continue Plan of Care Treatment Plan: Bed Mobility, Education, Functional Activity Ruthie, Functional Strength, Group Therapy, Gait, Safety, Therapeutic Exercise, Transfers Treatment Duration: Oct 11, 2020 Frequency: At least 5 of 7 days/Wk (IRF) Estimated Hrs Per Day: 1.5 hours per day Patient and/or Family Agrees t: Yes Safety Risks/Education Patient Education: Transfer Techniques, Correct Positioning, Safety Issues Teaching Recipient: Patient Teaching Methods: Discussion Response to Teaching: Verbalize Understanding Time/GCodes Time In: 1000 Time Out: 1100 Total Billed Treatment Time: 60 Total Billed Treatment [id number]: Co-treat w/OT for 15m 1, EX x2 (30m) & FA x2 (30m) [id number]: 1, FA (15m) HIMANSHU RODRIGUEZ PTA Sep 21, 2020 11:07
--- NOTE | 2020-09-21 11:09 | Speech Therapy Daily Note ---
Speech Daily Progress Note Subjective Date Seen by Provider: Sep 21, 2020 Time Seen by Provider: 00:30 Patient was resting in her recliner following her PT and OT session. Patient was tired and very weak. Objective Patient completed cognitive tasks at the 80% accuracy range.with decreased cues. Patient demonstrates utilization of oral intake strategies for safe intake at 90%. Assessment Assessment Current Status: Good Progress Treatment Plan Continue Plan of Care Speech Short Term Goals Short Term Goals Short Term Goals 1) Patient will complete a series of cognitive tasks related to safety awareness for her daily needs at 80% or greater with minimal tasks. 2) Patient will utilize memory strategies as trained for daily routine at 80% or greater with minimal tasks. Speech Alf Goals Enterprise Services Manager Goals Patient will improve cognitive function and safety awareness in order to return to SNF with higher level of function. Speech-Plan Patient/Family Goals Patient/Family Goals: Patient plans on returning to her [facility] apartment upon discharge. She will continue her therapy upon return as well. Treatment Plan Speech Therapy Treatment Plan: Continue Plan of Care Treatment Duration: Sep 24, 2020 Frequency: 4 times per week (Patient will receive skilled ST 4-5x per week) Estimated Hrs Per Day: .5 hour per day (Patient will receive skilled ST 4-5x per week) Rehab Potential: Good Barriers to Learning: Patient's recent CVA which was her second one, cognitive deficits Pt/Family Agrees to Plan: Yes Safety Risks/Education Teaching Recipient: Patient Teaching Methods: Demonstration, Discussion Response to Teaching: Verbalize Understanding, Return Demonstration Education Topics Provided: Continued safety within her room, communication and continued safety with oral intake Time Speech Therapy Time In: 11:00 Speech Therapy Time Out: 11:30 Total Billed Time: 30 Billed Treatment Time 1, MELISSA, NESS Johnson Sep 21, 2020 11:09
[2020-09-21] MEDS: FLEET ENEMA ADULT 1 EA BTL PR PRN (13:31)
[2020-09-21 20:00] VITALS: BP 138/82
[2020-09-21] MEDS: SERTRALINE 50 MG (ZOLOFT) TABLET PO SCH (21:45)
[2020-09-21] MEDS: MELATONIN 3 MG TABLET PO PRN (21:45)
[2020-09-22] MEDS: oxyCODONE/APAP 5/325MG (PERCOCET 5) TABLET PO PRN ×3 (02:07→19:46)
--- NOTE | 2020-09-22 06:17 | PM&R Progress Note ---
Subjective HPI/CC On Admission Date Seen by Provider: Sep 22, 2020 Time Seen by Provider: 10:00 Pt is a 65yoCF with a PMH of HTN, IDDMII, recent CVA who presented to the ER due to a fall and was found to have a displaced hip fracture. She underwent operative repair by Dr Villa. She normally resides at [facility] and is ambulating but have deficits from her recent CVA. She is being admitted to IRU for intensive therapy. Subjective/Events-last exam 09/22/2020: Pt doing pretty well Will be going to skilled care tomorrow Incontinence is chronic Bowels still have not moved and she declines anything but a suppository so will order that 09/21/2020: Bowels moved five days ago An enema may be needed Blood sugar is 192 Needs skilled care 09/20/2020: Pt doing pretty well Creatinine 1.92 Bowels are not moving as well as they should be Sugars are okay May need skilled care 09/19/2020: Patient feels pretty good Moving around better Stand and pivot is not very smooth Glucometers 134 today Continuous blood sugar monitor is being used Eats a lot No bowel movement today yet 09/18/2020: This visit is via video chat due to Covid related restriction for this provider Patient doing well today Bowels moved 2 days ago Reglan will be given at her request Able to use her continuous blood sugar monitor Stand and pivot is a struggle May need skilled at discharge 09/17/2020: This visit is via video chat due to Covid related restriction for this provider Patient doing pretty well Holding insulin for sugar less than 135 to prevent hypoglycemia Voiding pretty well 300-400 cc at a time Increased pain with therapy but she is doing a lot better today 09/16/2020: This visit is via video chat due to Covid related restriction for this provider Patient doing pretty well today Plavix and aspirin back on board Dr. Villa checked her right knee and everything looked okay probably bruised Voltaren gel will be attempted to put on the right knee to help her Bladder scan may be required since Leiva catheter discontinued and she may be retaining Standing in parallel bars today 09/15/2020: This visit is via video chat due to Covid related restriction for this provider Patient having a tough day Not moving around well 2-3 person assist today Plavix and ASA had been held since OR so will restart that because she is reported feeling like she is having TIA's Incontinent of bowel and bladder since DC catheter, she was having these issues before fall No BM since 09/10 so will give more meds 09/14/2020: This visit is via video chat due to Covid related restriction for this provider Patient settling in well Changed to a regular diet that is what she eats at home Creatinine stable at 1.6 with chronic kidney disease Delay in cognition per nursing staff but she seems to be doing pretty well today Having some knee pain on the right side unsure if she fell on it No bowels are moving yet last one was 09/10/2020 Check meds and labs Check Accu-Cheks Review of Systems General: Fatigue, Malaise Neurological: Weakness Objective Exam Vital Signs Vital Signs Date Time Temp Pulse Resp B/P (MAP) Pulse Ox O2 Delivery O2 Flow Rate FiO2 09/22/20 20:20 Room Air 09/22/20 20:00 36.2 70 12 135/81 (99) 72 09/22/20 15:52 2.00 Capillary Refill : General Appearance: No Apparent Distress, WD/WN, Chronically ill, Obese HEENT: PERRL/EOMI, Normal ENT Inspection, Pharynx Normal, Moist Mucous Membranes Neck: Full Range of Motion, Normal Inspection, Non Tender Respiratory: Chest Non Tender, Lungs Clear, Normal Breath Sounds, No Accessory Muscle Use, No Respiratory Distress Cardiovascular: Regular Rate, Rhythm, No Edema, No Gallop, No JVD, No Murmur, Normal Peripheral Pulses Gastrointestinal: Normal Bowel Sounds, No Organomegaly, No Pulsatile Mass, Non Tender, Soft Back: Normal Inspection, No CVA Tenderness, No Vertebral Tenderness Extremity: Normal Capillary Refill, Normal Inspection, Normal Range of Motion (except left leg), Non Tender, No Calf Tenderness, No Pedal Edema Neurologic/Psychiatric: Alert, Oriented x3, No Motor/Sensory Deficits, design center consultant II- 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 FIM Transfers Therapy Code Descriptions/Definitions Functional [place] Measure: 0=Not Assessed/NA 4=Minimal Assistance 1=Total Assistance 5=Supervision or Setup 2=Maximal Assistance 6=Modified [place] 3=Moderate Assistance 7=Complete IndependenceSCALE: Activities may be completed with or without assistive devices. 6-Qtqphyklpo-yazmwrc completes the activity by him/herself with no assistance from a helper. 5-Set-up or Clean-up Assistance-helper sets up or cleans up; patient completes activity. [place] assists only prior to or following the activity. 4-Supervision or Touching Assistance-helper provides verbal cues and/or touching/steadying and/or contact guard assistance as patient completes activity. Assistance may be provided throughout the activity or intermittently. 3-Partial/Moderate Assistance-helper does LESS THAN HALF the effort. [place] lif ts, holds or supports trunk or limbs, but provides less than half the effort. 2-Substantial/Maximal Assistance-helper does MORE THAN HALF the effort. [place] lifts or holds trunk or limbs and provides more than half the effort. 7-Orkonaxmi-qgxjjg does ALL the effort. Patient does none of the effort to complete the activity. Or, the assistance of 2 or more helpers is required for the patient to complete the activity. If activity was not attempted, code reason: 7-Patient Refused. 9-Not Applicable-not attempted and the patient did not perform the activity before the current illness, exacerbation or injury. 10-Not Attempted due to Environmental Limitations-(lack of equipment, weather restraints, etc.). 88-Not Attempted due to Medical Conditions or Safety Concerns. Roll Left to Right (QC): 3 Sit to Lying (QC): 1 Sit to Stand (QC): 3 Chair/Gqw-ez-Utkad Xfer(QC): 3 Car Transfer (QC): 88 (unsafe to attempt this date. ) Gait Training Does the Patient Walk?: No and Walking Goal IS indicated Walk 10 feet (QC): 88 Walk 50 ft with 2 Turns(QC): 88 Walk 150 ft (QC): 88 Walking 10ft/uneven surface-QC: 88 Wheelchair Training Does the Pt Use a Wheelchair?: Yes Wheel 50 ft with 2 turns (QC): 4 Wheel 150 ft (QC): 4 Type of Wheelchair: Manual Stair Training 1 Step (curb) (QC): 88 4 Steps (QC): 88 12 Steps (QC): 88 Balance Picking up an Object (QC): 88 ADL-Treatment Eating (QC): 5 Oral Hygiene (QC): 6 (IND seated at sink.) Shower/Bathe Self (QC): 1 (Sponge bath complete. Assist x2 required to wash buttocks. ) Upper Body Dressing (QC): 5 (set up assist with assembler for puller over hand shirt.) Lower Body Dressing (QC): 1 (assist x2 in stand for pant hike. Mod A with threading LEs with AE) On/Off Footwear (QC): 2 (Max A donning/doffing gripper socks using AE, dependent with TEDhose) Toileting Hygiene (QC): 1 (based on clincial judgement, Pt would require assist x2 in stand, assist with all parts.) Assessment/Plan Assessment and Plan Assess & Plan/Chief Complaint REHAB/MEDICAL ASSESSMENT AND PLAN: REHAB IMPAIRMENT GROUP: Left femur fracture ETIOLOGIC DIAGNOSIS: Left femur fracture The comorbidities that impact the patients function and/or functional outcome by: severe DM, inoperable CAD, CRI, HTN, gastroparesis, CVA hx REHAB PLAN: The patient is being admitted to our comprehensive inpatient rehabilitation facility and can tolerate the intensity of service consisting of at least: 180 minutes of therapy a day, 5 out of 7 days a week Rehab treatment will consist of: PT and OT will focus on left extremity pain with requirements to increase ADLs and ambulation in order to return to independent living The patient/family has a good understanding of our discharge process and will benefit from an interdisciplinary inpatient rehabilitation program. The patient has potential to make improvement and is in need of at least two of the following multidisciplinary therapies including but not limited to physical, occupational, speech, and prosthetics and orthotics. Additionally the patient will need services from respiratory, nutritional services, wound care, psychology, etc. (Customize this to each patient). Given the patients complex condition and risk of further medical complications, rehabilitation services cannot be safely or effectively provided at a lower level of care such as a retirement facility. BARRIERS TO DISCHARGE: Lives alone previously ESTIMATED LOS: 10 days DISPOSITION: Home with home care? RELEVANT CHANGES SINCE PREADMISSION SCREENING: I have compared the patients medical and functional status at the time of the preadmission screening and there are: no changes PROGNOSIS: Fair REHABILITATION GOALS: 1. PT and OT will focus on left lower extremity pain and decreased ROM with requirements to increase ADLs and ambulation in order to return to independent living All the above goals were reviewed with the patient and he/she is in agreement. By signing this document, I acknowledge that I have personally performed a full physical examination on this patient within 24 hours of admission to this inpatient rehabilitation facility and have determined the patient to be able to tolerate the above course of treatment at an intensive level for a reasonable period of time. I will be completing a detailed individualized Plan of Care for this patient by day #4 of the patients stay based upon the Preadmission Screen, the Post-Admission Evaluation, and the therapy evaluations. Assessment: Left femur fracture s/p repair Post op anemia h/o right sided weakness with facial droop not a tPa candidate per Stroke center [facility] MRI inconclusive for CVA 03/07/20 s/p CVA w/residual left facial droop and left upper and lower extremity weakness August 2018 IRF course DM poorly controlled CAD inoperable multi-vessel disease declined heart transplant at [facility] 2014 HTN HLP CRI Insomnia GERD Gastroparesis OP Neuropathy Hypoglycemia episodes ANNIE on CPAP Plan: Rehab protocol Insulin Pain control 09/14/2020: Pain control Change diet to regular diet Monitor closely 09/15/20: Monitor bowel and bladder CPAP Plavix and ASA restarted 09/16/2020: Monitor closely Monitor insulin with hypoglycemia Voltaren gel to the right knee 09/17/2020: Bowel regimen Monitor voiding Pain control 09/18/2020: Monitor blood sugar Fall risk 09/19/2020: Monitor blood sugar and blood pressure Bowel regimen 09/20/2020: Supportive care Needs skilled care 09/21/2020: Supportive care Need skilled placement 09/22/2020: Discharge tomorrow to skilled (1) Coronary artery disease involving [place] coronary artery with angina pectoris Assessment & Plan: Her angina is under good control on 3 antianginal medications, aspirin, clopidogrel, and statin medication. She can follow-up with her regular casing grader after discharge. (2) Essential hypertension Assessment & Plan: Blood pressures are intermittently elevated. Some of this may be related to her physical therapy. We will continue to monitor. (3) Mixed hyperlipidemia Assessment & Plan: Goal LDL less than 70 mg/dL. Continue statin medication. (4) Supraventricular tachycardia Status: Acute Assessment & Plan: No signs of recurrence. Continue beta-abel. JAG KIRKLAND DO Sep 22, 2020 06:17
[2020-09-22] MEDS: inSUlin ASPART (NovoLOG) 1 UNIT/0.01 ML (CHARGE PER UNIT) SC SCH ×4 (06:43→21:02)
[2020-09-22] MEDS: inSUlin (REGULAR) HUMAN 1 UNIT/0.01 ML (CHARGE PER UNIT) SC SCH ×3 (07:25→17:43)
[2020-09-22 07:44] VITALS: BP 151/71
--- NOTE | 2020-09-22 07:45 | Progress Note ---
Standard Progress Note Progress Notes/Assess & Plan Date Seen by a Provider: Sep 22, 2020 Time Seen by a Provider: 07:43 Progress/Assessment & Plan c/o hip pain Incision clean and dry. No calf tenderness s/p L hip perc screws WB with walker patient reports she is going to "try harder" with PT/OT Final Diagnosis feeling better denies sig pain LLE incision healing well able to flex hip better actively no calf tenderness s/p L hip perc screws PT/OT DC umer tomorrow FAUSTINO REAVES MD Sep 22, 2020 07:45
[2020-09-22] MEDS: polyethylene glycoL POWDER 17 GM (MIRALAX) PACK PO SCH ×2 (08:46→19:46)
[2020-09-22] MEDS: RANOLAZINE ER 500 MG TAB (RANEXA) PO SCH ×2 (08:46→19:45)
[2020-09-22] MEDS: CLOPIDOGREL 75 MG (PLAVIX) TABLET PO SCH (08:47)
[2020-09-22] MEDS: amLODIPine 5 MG (NORVASC) TAB PO SCH (08:47)
[2020-09-22] MEDS: DICLOFENAC 1% GEL 100 GM (VOLTAREN) TUBE TOP SCH ×4 (08:47→19:48)
[2020-09-22] MEDS: LOSARTAN 100 MG (COZAAR) TABLET PO SCH (08:47)
[2020-09-22] MEDS: PANTOPRAZOLE 40 MG (PROTONIX) TAB PO SCH (08:47)
[2020-09-22] MEDS: ASPIRIN E.C. 81 MG (ECOTRIN) TAB PO SCH (08:47)
[2020-09-22] MEDS: SENNA W/DOCUSATE (SENOKOT S) TABLET PO SCH ×2 (08:47→19:45)
[2020-09-22] MEDS: METOCLOPRAMIDE 10 MG (REGLAN) TAB PO PRN ×2 (08:47→19:46)
[2020-09-22] MEDS: ATENOLOL 25 MG (TENORMIN) TAB PO SCH (08:47)
[2020-09-22] MEDS: ALLOPURINOL 100 MG (ZYLOPRIM) TAB PO SCH (08:47)
[2020-09-22] MEDS: DOCUSATE SODIUM 100 MG (COLACE) CAP PO SCH ×2 (08:47→19:46)
[2020-09-22] MEDS: OXYBUTYNIN (DITROPAN) 5 MG TAB PO SCH ×2 (08:47→19:45)
--- NOTE | 2020-09-22 09:01 | Occupational Ther Daily Note ---
OT Current Status-Daily Note Subjective Pt laying in bed, agreeable to OT tx. Pt reports slight pain in L hip, but does not verbalize pain rating. Mental Status/Objective Patient Orientation: Person, Confused (slightly), Place, Situation ADL-Treatment Therapy Code Descriptions/Definitions Functional [place] Measure: 0=Not Assessed/NA 4=Minimal Assistance 1=Total Assistance 5=Supervision or Setup 2=Maximal Assistance 6=Modified Rib[place] 3=Moderate Assistance 7=Complete IndependenceSCALE: Activities may be completed with or without assistive devices. 9-Pbbqgnqgxm-edfidhj completes the activity by him/herself with no assistance from a helper. 5-Set-up or Clean-up Assistance-helper sets up or cleans up; patient completes activity. [place] assists only prior to or following the activity. 4-Supervision or Touching Assistance-helper provides verbal cues and/or touching/steadying and/or contact guard assistance as patient completes activity. Assistance may be provided throughout the activity or intermittently. 3-Partial/Moderate Assistance-helper does LESS THAN HALF the effort. Ethel lifts, holds or supports trunk or limbs, but provides less than half the effort. 2-Substantial/Maximal Assistance-helper does MORE THAN HALF the effort. Ethel lifts or holds trunk or limbs and provides more than half the effort. 9-Vmnlgxgwx-rqsnvk does ALL the effort. Patient does none of the effort to complete the activity. Or, the assistance of 2 or more helpers is required for the patient to complete the activity. If activity was not attempted, code reason: 7-Patient Refused. 9-Not Applicable-not attempted and the patient did not perform the activity before the current illness, exacerbation or injury. 10-Not Attempted due to Environmental Limitations-(lack of equipment, weather restraints, etc.). 88-Not Attempted due to Medical Conditions or Safety Concerns. Eating (QC): 5 (set up assist per clincial judgement.) Oral Hygiene (QC): 6 (IND seated) Bathing Location: L Arm, R Arm, L Upper Leg, R Upper Leg, Chest, Abdomen, Pe rineal Area Shower/Bathe Self (QC): 1 (Sit to stand lift utilized to wash buttocks. Pt washed other parts seated on SC, assist with BLE lower legs/feet.) Upper Body Dressing (QC): 5 (set up with pull socket assembler shirt.) Lower Body Dressing (QC): 1 (Total assist due to sit to stand lift for pant hike. Max A overall with task using AE.) On/Off Footwear: 2 (Max A with donning/doffing gripper socks using AE) Toileting Hygiene (QC): 1 (sit to stand lift used for hygiene and clothing management.) Toilet Transfer (QC): 1 (sit to stand lift to/from [facility] Pt required moderate cues with ADLs for sequencing. Other Treatment Pt laying in bed, transferred supine to sit EOB, assist with BLEs. sit to stand lift used to transfer pt to BSC, pt completed toileting, then sit to stand lift to RI. Pt taken to large shower room, where she completed shower. Moderate verbal cues overall with task, as OT would hand pt LH sponge and instruct pt to wash legs, pt began washing a portion of her leg, then returned to washing upper body. When OT asked pt if she had washed both legs, she replied "I don't think so", requiring cue to continue washing lower body. Pt returned to room for dressing. Sit to stand lift used for pant hike, then pt transferred to recliner. Post tx, pt seated in recliner, nurse present with medication, all needs met, call light in reach. Education OT Patient Education: Correct positioning, Modified ADL techniques, Progress toward Goal/Update tx plan, Purpose of tx/functional activities, Rehab process, Safety issues, Transfer techniques Teaching Recipient: Patient Teaching Methods: Discussion Response to Teaching: Verbalize Understanding OT Short Term Goals Short Term Goals Time Frame: Sep 24, 2020 Toileting hygiene: 3 Lower body dressin Putting on/taking off footwear: 3 OT Suit Attendant Goals Longterm Goals Time Frame: Oct 08, 2020 Eating (QC): 6 Oral Hygiene (QC): 6 Toileting Hygiene (QC): 4 Shower/Bathe Self (QC): 4 Upper Body Dressing (QC): 5 Lower Body Dressing (QC): 4 On/Off Footwear (QC): 4 Additional Goals: 1-Demonstrate ADL Tasks, 2-Verbalize Understanding, 3-ImproveStrength/Ruthie 1=Demonstrate adherence to instructed precautions during ADL tasks. 2=Patient will verbalize/demonstrate understanding of assistive devices/modifications for ADL. 3=Patient will improve strength/tolerance for activity to enable patient to perform ADL's. OT Education/Plan Problem List/Assessment Assessment: Decreased Activ Tolerance, Decreased Safety Aware, Decreased UE Strength, Dependent Transfers, Impaired Bed Mobility, Impaired Cognition, Impaired Funct Balance, Impaired I ADL's, Impaired Self-Care Skills Discharge Recommendations Plan/Recommendations: Continue POC Treatment Plan/Plan of Care Patient would benefit from OT for education, treatment and training to promote independence in ADL's, mobility, safety and/or upper extremity function for ADL's. Plan of Care: ADL Retraining, Functional Mobility, Group Exercise/Act as Ind, UE Funct Exercise/Act Treatment Duration: Oct 08, 2020 Frequency: At least 5 of 7 days/Wk (IRF) Estimated Hrs Per Day: 1.5 hours per day Agreement: Yes Rehab Potential: Good Time/GCodes Start Time: 08:00 Stop Time: 09:00 Total Time Billed (hr/min): 60 Billed Treatment Time 1, ADL 4 HARLEY LOCKE OT Sep 22, 2020 09:01
[2020-09-22] MEDS ORDERED: BISACODYL 10 MG SUPP (DULCOLAX) PR ONE (10:15)
--- NOTE | 2020-09-22 11:11 | Speech Therapy Daily Note ---
Speech Daily Progress Note Subjective Date Seen by Provider: Sep 22, 2020 Time Seen by Provider: 00:30 Patient was resting in her recliner watching television when I entered her room. She states she didn't rest well last evening due to the heater making a noise all night long. Objective Patient completed a series of q/a related to her daily needs and her assistance needed upon discharge at 90% with minimal cues. Patient demonstrates safe intake with ice chips and snack without cues. Assessment Assessment Current Status: Good Progress Treatment Plan Discontinue ST Speech Short Term Goals Short Term Goals Short Term Goals 1) Patient will complete a series of cognitive tasks related to safety awareness for her daily needs at 80% or greater with minimal tasks. 2) Patient will utilize memory strategies as trained for daily routine at 80% or greater with minimal tasks. Speech Erp Technical Lead Goals Skilled Nursing Goals Patient will improve cognitive function and safety awareness in order to return to SNF with higher level of function. Speech-Plan Patient/Family Goals Patient/Family Goals: Patient is scheduled to discharge to the SNF side of [facility] tomorrow for continued therapy. Treatment Plan Speech Therapy Treatment Plan: Discontinue ST Treatment Duration: Sep 24, 2020 Frequency: 4 times per week (Patient will receive skilled ST 4-5x per week) Estimated Hrs Per Day: .5 hour per day (Patient will receive skilled ST 4-5x per week) Rehab Potential: Good Barriers to Learning: Patient's recent CVA, cognitive deficits and debility Pt/Family Agrees to Plan: Yes Safety Risks/Education Teaching Recipient: Patient Teaching Methods: Demonstration, Discussion Response to Teaching: Verbalize Understanding, Return Demonstration Education Topics Provided: Continued safety upon discharge, continued safety of oral intake Time Speech Therapy Time In: 11:00 Speech Therapy Time Out: 11:30 Total Billed Time: 30 Billed Treatment Time 1, SLTS, DYST No QUALITY CODES EXPRESSION OF IDEAS/WANTS: 3 UNDERSTANDING VERBAL CONTENT: 4 BRIEF INTERVIEW OF MENTAL STATUS: YES REPETITION OF 3 WORDS: 3 TEMPORAL ORIENTATION: YEAR: CORRECT, MONTH: CORRECT, DAY: CORRECT RECALL: SOCK: YES WITH CUE, COLOR: YES, BED: YES WITH CUE MEMORY ABILITY: SEASON, THAT SHE IS IN THE HOSPITAL, LOCATION OF ROOM, STAFF NAMES NESS GAMBOA Sep 22, 2020 11:11
--- NOTE | 2020-09-22 11:13 | Physical Therapy Daily Note ---
PT Daily Note-Current Subjective Pt sitting in recliner upon arrival. Pt agrees to PT. Pt asks to use BSC. Pain Numeric Pain Scale: 9 Location: Left Location Body Site: Hip Pain Description: Sharp Mental Status Patient Orientation: Person, Place, Time, Situation Transfers SCALE: Activities may be completed with or without assistive devices. 4-Ubwpiyldko-cgyookn completes the activity by him/herself with no assistance from a helper. 5-Set-up or Clean-up Assistance-helper sets up or cleans up; patient completes activity. [place] assists only prior to or following the activity. 4-Supervision or Touching Assistance-helper provides verbal cues and/or touching/steadying and/or contact guard assistance as patient completes activity. Assistance may be provided throughout the activity or intermittently. 3-Partial/Moderate Assistance-helper does LESS THAN HALF the effort. [place] lifts, holds or supports trunk or limbs, but provides less than half the effort. 2-Substantial/Maximal Assistance-helper does MORE THAN HALF the effort. [place] lifts or holds trunk or limbs and provides more than half the effort. 8-Hmsptckrm-msmdwl does ALL the effort. Patient does none of the effort to complete the activity. Or, the assistance of 2 or more helpers is required for the patient to complete the activity. If activity was not attempted, code reason: 7-Patient Refused. 9-Not Applicable-not attempted and the patient did not perform the activity before the current illness, exacerbation or injury. 10-Not Attempted due to Environmental Limitations-(lack of equipment, weather restraints, etc.). 88-Not Attempted due to Medical Conditions or Safety Concerns. Roll Left & Right (QC): 3 Sit to Lying (QC): 2 Lying to Sitting/Side of Bed(Q: 2 Sit to Stand (QC): 2 Chair/Ecp-ev-Lktcv Xfer(QC): 2 Toilet Transfer (QC): 2 Car Transfer (QC): 7 Weight Bearing Right Lower Extremity: Right Full Weight Bearing Left Lower Extremity: Left Weight Bearing/Tolerated Gait Training Does the Patient Walk?: No and Walking Goal IS indicated Wheelchair Training Does the Pt Use a Wheelchair?: Yes Wheel 50 ft with 2 turns (QC): 5 Wheel 150 ft (QC): 5 Type of Wheelchair: Manual Stair Training 1 Step (curb) (QC): 88 4 Steps (QC): 88 12 Steps (QC): 88 Pt is not able to stand more than a few seconds at a time and is unable to bear weight fully through L foot. Balance Picking up an Object (QC): 88 Special Test Comments This is unsafe to test at this time. Treatments TF to standing & SPT to BS. HONING MACHINE TRY OUT SETTER assists wit Lunch, Dinner & Breakfast order then pt stands from [facility]. Pt is not able to complete pericare so PROVIDER EDUCATION SPECIALIST assists w/pericare. Pt transfers to [facility]. Pt propels [facility] in hallway including turns. Pt completes Seated Ex before returning to room to rest in recliner. QC listed above. All needs met, call light in hand. Assessment Current Status: Fair Progress Pt is limited by pain at this time. PT Short Term Goals Short Term Goals Time Frame: Sep 27, 2020 Sit to lyin Lying to sitting on side of be: 3 Sit to stand: 3 Walk 50 feet with two turns: 3 PT Senior Care Goals Valve Liner Rubber Goals PT Valve Liner Rubber Goals Time Frame: Oct 11, 2020 Roll Left & Right (QC): 6 Sit to Lying (QC): 6 Lying-Sitting on Side/Bed(QC): 6 Sit to Stand (QC): 6 Chair/Hbz-le-Drpke Xfer(QC): 6 Toilet Transfer (QC): 6 Car Transfer (QC): 5 Does the Patient Walk: No and Walking Goal IS indicated Walk 10 feet (QC): 6 Walk 50ft with 2 Turns (QC): 6 Walk 150 ft (QC): 6 Walking 10ft on Uneven Surface: 5 1 Step (curb) (QC): 6 4 Steps (QC): 6 12 Steps (QC): 9 Picking up an Object (QC): 4 Does the Pt use WC or Scooter?: No Wheel 50 feet with 2 turns (QC: 9 Wheel 150 feet: 9 PT Plan Problem List Problem List: Activity Tolerance, Functional Strength, Transfer Treatment/Plan Treatment Plan: Continue Plan of Care Treatment Plan: Bed Mobility, Education, Functional Activity Ruthie, Functional Strength, Group Therapy, Gait, Safety, Therapeutic Exercise, Transfers Treatment Duration: Oct 11, 2020 Frequency: At least 5 of 7 days/Wk (IRF) Estimated Hrs Per Day: 1.5 hours per day Patient and/or Family Agrees t: Yes Safety Risks/Education Patient Education: Transfer Techniques, Correct Positioning, W/C Management, Safety Issues Teaching Recipient: Patient Teaching Methods: Discussion Response to Teaching: Verbalize Understanding Time/GCodes Time In: 1000 Time Out: 1100 Total Billed Treatment Time: 60 Total Billed Treatment 1, FA x2 (30m), WCH (15m) & EX (15m) HIMANSHU RODRIGUEZ HONING MACHINE TRY OUT SETTER Sep 22, 2020 11:13
--- NOTE | 2020-09-22 11:19 | Therapy Team Discharge Summary ---
Therapy Discharge Summary Discharge Recommendations Date of Discharge Occupational Therapy Decreased Activ Tolerance, Decreased Safety Aware, Decreased UE Strength, Dependent Transfers, Impaired Bed Mobility, Impaired Cognition, Impaired Funct Balance, Impaired I ADL's, Impaired Self-Care Skills Speech-Language Pathology Patient was admitted to the ARU s/p CVA with fall/injury to hip. Patient was given the SLUMS with a score in the moderate dementia range of function. Patient has progressed toward ST goals and cognition has somewhat resolved. She is scheduled to discharge to the SNF at [facility] tomorrow where she will continue to receive therapy. PT Half-Way Goals Design Lead Goals PT Half-Way Goals Time Frame: Oct 11, 2020 Roll Left to Right (QC): 6 Sit to Lying (QC): 6 Lying-Sitting on Side/Bed(QC): 6 Sit to Stand (QC): 6 Chair/Btp-jb-Bymii Xfer(QC): 6 Car Transfer (QC): 5 Does the Patient Walk: No and Walking Goal IS indicated Walk 10 feet (QC): 6 Walk 10ft-Uneven Surface(QC): 5 Walk 50ft with 2 Turns (QC): 6 Walk 150 ft (QC): 6 Does the Pt use WC or Scooter?: No Wheel 50 feet with 2 turns (QC: 9 1 Step (curb) (QC): 6 4 Steps (QC): 6 12 Steps (QC): 9 Picking up an Object (QC): 4 OT Half-Way Goals Half-Way Goals Time Frame: Oct 08, 2020 Eating (QC): 6 Oral Hygiene (QC): 6 Shower/Bathe Self (QC): 4 Upper Body Dressing (QC): 5 Lower Body Dressing (QC): 4 On/Off Footwear (QC): 4 Toileting Hygiene (QC): 4 Toilet/Commode Transfer (QC): 6 Additional Goals: 1-Demonstrate ADL Tasks, 2-Verbalize Understanding, 3- ImproveStrength/Ruthie 1=Demonstrate adherence to instructed precautions during ADL tasks. 2=Patient will verbalize/demonstrate understanding of assistive devices/modifications for ADL. 3=Patient will improve strength/tolerance for activity to enable patient to perform ADL's. Speech Half-Way Goals Half-Way Goals Patient will improve cognitive function and safety awareness in order to return to SNF with higher level of function. NESS GAMBOA Sep 22, 2020 11:19
--- NOTE | 2020-09-22 15:04 | Therapy Group Daily Note ---
Therapy Daily Group Note Patient Education Topic Energy Cons Exercises LE Seated Exercise, UE Exercise Session Ratio (pt:therapist): 4:1 Goal of Session: Energy Conservation Tech., UE/LE Strengthing Goal Met for this Session: Yes Pt Benefit of Group: Contributions to Others, F/U Use of Strategies @Home, Increased Functional Safety, Increased Functional Strength, Improved Cognition, Recognition of Peers, Socialization Other/Notes Pt is propelled to PT/OT Group in [facility]. Group consists of Introductions (Name, Location & Favorite Childhood Summer Activity), Socialization, Seated UE/LE Exe rcises, Explanation of Weekly ARU Meeting as well as Energy Conservation Techniques. Pt participated in Group by actively listening to other patients, properly introducing self and completing UE/LE Exercises. Pt returns to room to rest in recliner at end of Group with all needs met, call light in hand. Start Time: 13:00 Stop Time: 14:00 Total Billed Treatment Time: 60 Total Billed Treatment 1, GRP HIMANSHU RODRIGUEZ POLICY WRITER SALES Sep 22, 2020 15:04
[2020-09-22] MEDS: BISACODYL 10 MG SUPP (DULCOLAX) PR PRN (17:43)
[2020-09-22] MEDS: MELATONIN 3 MG TABLET PO PRN (19:46)
[2020-09-22] MEDS: SERTRALINE 50 MG (ZOLOFT) TABLET PO SCH (19:46)
[2020-09-22 20:00] VITALS: BP 135/81
[2020-09-23] MEDS: oxyCODONE/APAP 5/325MG (PERCOCET 5) TABLET PO PRN ×3 (01:40→12:57)
[2020-09-23] MEDS: inSUlin (REGULAR) HUMAN 1 UNIT/0.01 ML (CHARGE PER UNIT) SC SCH ×2 (05:28→13:10)
[2020-09-23] MEDS: inSUlin ASPART (NovoLOG) 1 UNIT/0.01 ML (CHARGE PER UNIT) SC SCH ×2 (05:28→11:53)
[2020-09-23] MEDS ORDERED: SENN1TAB76 PO (06:17)
[2020-09-23] MEDS ORDERED: PANT40TA52 PO (06:17)
[2020-09-23] MEDS ORDERED: OXYC1TAB87 PO (06:17)
[2020-09-23] MEDS ORDERED: AMLO-250 PO (06:17)
[2020-09-23] MEDS ORDERED: INSN1U SQ ×2 (06:17)
[2020-09-23] MEDS ORDERED: DICL100G13 TOP (06:17)
[2020-09-23] MEDS ORDERED: INSU100V3 SC (06:17)
--- NOTE | 2020-09-23 06:19 | Discharge Inst-Skilled Nursing ---
Discharge Inst-Skilled NF Reconcile Patient Problems Problems Reviewed?: Yes Chief Complaint Pt is a 65yoCF with a PMH of HTN, IDDMII, recent CVA who presented to the ER due to a fall and was found to have a displaced hip fracture. She underwent operative repair by Dr Villa. She normally resides at [facility] and is ambulating but have deficits from her recent CVA. She is being admitted to IRU for intensive therapy. Patient Instructions Patient Problems: Status post hip fracture Fall Prior strokes Diabetes Goal: [place] to return back to assisted living Consult/Follow Up/Orders Follow Up Appt.: Dr. Peralta in 1 week Skilled NF Admit to: [facility] [place] [facility] Certification ([facility]) I certify that SNF services are required to be given on an inpatient basis because of the above named patient's need for alf care on a continuing basis for the conditions(s) for which he/she was receiving inpatient hospital services prior to his/her transfer to the [facility]. Intermediate Facility Order: Nursing Services, [facility] [address] [facility]-Evaluate & Treat, Physical Therapy-Evaluate & Treat Oxygen Delivery Method: Room Air Discharge Diet: ADA Diet Resuscitation Status: Full Code New & Resume Previous Orders New Medications: Amlodipine Besylate (Amlodipine Besylate) 5 Mg Tablet 5 MG PO DAILY for 30 Days, TAB Diclofenac Sodium (Diclofenac Sodium) 100 Gm Gel..gram. 0 GM TOP QID for 30 Days, TUBE Insulin Regular, Human (Humulin R) 1,000 Units/10 Ml Soln 20 UNIT SC TIDAC for 30 Days, EA Oxycodone HCl/Acetaminophen (Percocet 5-325 mg Tablet) 1 Each Tablet 1-2 TAB PO Q2HR PRN for PAIN-MODERATE (5-7), #30 TAB Pantoprazole Sodium (Pantoprazole Sodium) 40 Mg Tablet.dr 40 MG PO DAILY for 30 Days, TAB Sennosides/Docusate Sodium (Stool Softener-Laxative Tablet) 1 Each Tablet 1 EA PO BID for 30 Days, TAB Changed Medications: Insulin NPH Human Isophane (Novolin N) 100 Unit/1 Ml Vial 20 UNIT SQ DAILY for 30 Days, VIAL (Changed from: 66 UNIT) Insulin NPH Human Isophane (Novolin N) 100 Unit/1 Ml Vial 30 UNIT SQ HS for 30 Days, VIAL (Changed from: 83 UNIT) Continued Medications: Allopurinol (Allopurinol) 100 Mg Tablet 100 MG PO DAILY, TAB Aspirin (Aspirin EC) 81 Mg Tablet.dr 81 MG PO DAILY, TAB Atenolol (Atenolol) 25 Mg Tablet 25 MG PO DAILY, TAB Atorvastatin Calcium (Atorvastatin Calcium) 80 Mg Tablet 80 MG PO HS, TAB Clopidogrel Bisulfate (Plavix) 75 Mg Tablet 75 MG PO DAILY, TAB Insulin Regular, Human (Novolin R) 100 Unit/1 Ml Vial 10-20 UNIT SC TIDAC, VIAL Losartan Potassium (Losartan Potassium) 100 Mg Tablet 100 MG PO DAILY, TAB Metoclopramide HCl (Metoclopramide HCl) 10 Mg Tablet 10 MG PO BID PRN for NAUSEA/VOMITING-3RD LINE, TAB Oxybutynin Chloride (Oxybutynin Chloride ER) 5 Mg Tab.er.24 5 MG PO DAILY, TAB Ranolazine (Ranexa) 1,000 Mg Tab.er.12h 1000 MG PO BID, TAB Sertraline HCl (Sertraline HCl) 25 Mg Tablet 25 MG PO HS, TAB Teressa Goodrich Sep 23, 2020 06:18 TERESSA GOODRICH DO Sep 23, 2020 06:19
--- NOTE | 2020-09-23 06:19 | Discharge Summary ---
Diagnosis/Chief Complaint Date of Admission Sep 13, 2020 at 12:30 Date of Discharge Discharge Date: Sep 23, 2020 Discharge Diagnosis Assessment: Left femur fracture s/p repair Post op anemia h/o right sided weakness with facial droop not a tPa candidate per Stroke center [facility] MRI inconclusive for CVA 03/07/20 s/p CVA w/residual left facial droop and left upper and lower extremity weakness August 2018 IRF course DM poorly controlled CAD inoperable multi-vessel disease declined heart transplant at [facility] 2014 HTN HLP CRI Insomnia GERD Gastroparesis OP Neuropathy Hypoglycemia episodes ANNIE on CPAP Plan: Rehab protocol Insulin Pain control 09/14/2020: Pain control Change diet to regular diet Monitor closely 09/15/20: Monitor bowel and bladder CPAP Plavix and ASA restarted 09/16/2020: Monitor closely Monitor insulin with hypoglycemia Voltaren gel to the right knee 09/17/2020: Bowel regimen Monitor voiding Pain control 09/18/2020: Monitor blood sugar Fall risk 09/19/2020: Monitor blood sugar and blood pressure Bowel regimen 09/20/2020: Supportive care Needs skilled care 09/21/2020: Supportive care Need skilled placement 09/22/2020: Discharge tomorrow to skilled Discharge Summary Discharge Physical Examination Allergies: Coded Allergies: celecoxib (Unverified Allergy, Unknown, 03/08/15) cinacalcet (Verified Allergy, Unknown, 03/07/20) clarithromycin (Verified Allergy, Unknown, 03/07/20) codeine (Verified Allergy, Unknown, 03/07/20) hydrocodone (Verified Allergy, Unknown, 03/07/20) levofloxacin (Verified Allergy, Unknown, 03/08/15) isosorbide (Verified Adverse Reaction, Unknown, severe hypotension, 03/08/15) Vitals & I&Os Vital Signs Date Time Temp Pulse Resp B/P (MAP) Pulse Ox O2 Delivery O2 Flow Rate FiO2 09/23/20 13:25 36.5 80 14 162/79 94 Room Air 2.00 General Appearance: Alert, Oriented X3, Cooperative Respiratory: Clear to Auscultation Cardiovascular: Regular Rate Psych/Mental Status: Mental Status NL Hospital Course Was the Problem List Reviewed?: Yes Hospital course: Pt had an uneventful hospital course for eleven days due to left hip fracture. Blood sugars were managed with her continuous blood sugar monitor and aggressive insulin regimen. Bowel function returned back to normal after aggressive laxatives along with Reglan. She had slow recovery due to comorbidities and overall required skilled at [facility]. She was set up with therapy and will have close follow-up with Dr. Peralta her PCP. Poor prognosis long-term due to comorbidities and significant debility. Labs (last 24 hrs) Laboratory Tests 09/13/20 22:30: Glucometer 107 09/14/20 05:11: White Blood Count 7.0, Red Blood Count 3.03L, Hemoglobin 10.4L, Hematocrit 30L, Mean Corpuscular Volume 100H, Mean Corpuscular Hemoglobin 34, Mean Corpuscular Hemoglobin Concent 34, Red Cell Distribution Width 13.2, Platelet Count 126L, Mean Platelet Volume 11.5, Immature Granulocyte % (Auto) 1, Neutrophils (%) (Auto) 70, Lymphocytes (%) (Auto) 19, Monocytes (%) (Auto) 8, Eosinophils (%) (Auto) 2, Basophils (%) (Auto) 0, Neutrophils # (Auto) 4.9, Lymphocytes # (Auto) 1.3, Monocytes # (Auto) 0.6, Eosinophils # (Auto) 0.1, Basophils # (Auto) 0.0, Immature Granulocyte # (Auto) 0.1, Sodium Level 138, Potassium Level 4.5, Chlor daniel Level 105, Carbon Dioxide Level 22, Anion Gap 11, Blood Urea Nitrogen 24H, Creatinine 1.60H, Estimat Glomerular Filtration Rate 32, BUN/Creatinine Ratio 15, Glucose Level 114H, Calcium Level 10.2H, Corrected Calcium 10.8H, Total Bilirubin 0.9, Aspartate Amino Transf (AST/SGOT) 18, Alanine Aminotransferase (ALT/SGPT) 12, Alkaline Phosphatase 70, Total Protein 6.1L, Albumin 3.3 09/14/20 11:10: Glucometer 162H 09/14/20 16:33: Glucometer 166H 09/14/20 21:11: Glucometer 83 09/15/20 05:31: Glucometer 107 09/15/20 10:54: Glucometer 125H 09/15/20 17:07: Glucometer 175H 09/15/20 20:48: Glucometer 149H 09/16/20 06:06: Glucometer 115H 09/16/20 10:53: Glucometer 182H 09/16/20 16:13: Glucometer 72 09/16/20 16:44: Glucometer 75 09/16/20 20:45: Glucometer 122H 09/17/20 05:17: Glucometer 153H 09/17/20 10:55: Glucometer 190H 09/17/20 15:52: Glucometer 155H 09/17/20 21:01: Glucometer 98 09/18/20 05:34: Glucometer 141H 09/18/20 11:23: Glucometer 141H 09/20/20 05:30: White Blood Count 8.1, Red Blood Count 3.08L, Hemoglobin 10.4L, Hematocrit 32L, Mean Corpuscular Volume 102H, Mean Corpuscular Hemoglobin 34, Mean Corpuscular Hemoglobin Concent 33, Red Cell Distribution Width 13.2, Platelet Count 264, Mean Platelet Volume 10.5, Immature Granulocyte % (Auto) 1, Neutrophils (%) (Auto) 64, Lymphocytes (%) (Auto) 24, Monocytes (%) (Auto) 9, Eosinophils (%) (Auto) 3, Basophils (%) (Auto) 0, Neutrophils # (Auto) 5.2, Lymphocytes # (Auto) 2.0, Monocytes # (Auto) 0.7, Eosinophils # (Auto) 0.2, Basophils # (Auto) 0.0, Immature Granulocyte # (Auto) 0.1, Sodium Level 137, Potassium Level 4.8, Chloride Level 103, Carbon Dioxide Level 24, Anion Gap 10, Blood Urea Nitrogen 34H, Creatinine 1.92H, Estimat Glomerular Filtration Rate 26, BUN/Creatinine Ratio 18, Glucose Level 148H, Calcium Level 10.1, Corrected Calcium 10.7H, Total Bilirubin 0.6, Aspartate Amino Transf (AST/SGOT) 17, Alanine Aminotransferase (ALT/SGPT) 16, Alkaline Phosphatase 90, Total Protein 6.2L, Albumin 3.2 Pending Labs Laboratory Tests 09/13/20 22:30: Glucometer 107 09/14/20 05:11: White Blood Count 7.0, Red Blood Count 3.03, Hemoglobin 10.4, Hematocrit 30, Mean Corpuscular Volume 100, Mean Corpuscular Hemoglobin 34, Mean Corpuscular Hemoglobin Concent 34, Red Cell Distribution Width 13.2, Platelet Count 126, Mean Platelet Volume 11.5, Immature Granulocyte % (Auto) 1, Neutrophils (%) (Auto) 70, Lymphocytes (%) (Auto) 19, Monocytes (%) (Auto) 8, Eosinophils (%) (Auto) 2, Basophils (%) (Auto) 0, Neutrophils # (Auto) 4.9, Lymphocytes # (Auto) 1.3, Monocytes # (Auto) 0.6, Eosinophils # (Auto) 0.1, Basophils # (Auto) 0.0, Immature Granulocyte # (Auto) 0.1, Sodium Level 138, Potassium Level 4.5, Chloride Level 105, Carbon Dioxide Level 22, Anion Gap 11, Blood Urea Nitrogen 24, Creatinine 1.60, Estimat Glomerular Filtration Rate 32, BUN/Creatinine Ratio 15, Glucose Level 114, Calcium Level 10.2, Corrected Calcium 10.8, Total Bilirubin 0.9, Aspartate Amino Transf (AST/SGOT) 18, Alanine Aminotransferase (ALT/SGPT) 12, Alkaline Phosphatase 70, Total Protein 6.1, Albumin 3.3 09/14/20 11:10: Glucometer 162 09/14/20 16:33: Glucometer 166 09/14/20 21:11: Glucometer 83 09/15/20 05:31: Glucometer 107 09/15/20 10:54: Glucometer 125 09/15/20 17:07: Glucometer 175 09/15/20 20:48: Glucometer 149 09/16/20 06:06: Glucometer 115 09/16/20 10:53: Glucometer 182 09/16/20 16:13: Glucometer 72 09/16/20 16:44: Glucometer 75 09/16/20 20:45: Glucometer 122 09/17/20 05:17: Glucometer 153 09/17/20 10:55: Glucometer 190 09/17/20 15:52: Glucometer 155 09/17/20 21:01: Glucometer 98 09/18/20 05:34: Glucometer 141 09/18/20 11:23: Glucometer 141 09/20/20 05:30: White Blood Count 8.1, Red Blood Count 3.08, Hemoglobin 10.4, Hematocrit 32, Mean Corpuscular Volume 102, Mean Corpuscular Hemoglobin 34, Mean Corpuscular Hemoglobin Concent 33, Red Cell Distribution Width 13.2, Platelet Count 264, Mean Platelet Volume 10.5, Immature Granulocyte % (Auto) 1, Neutrophils (%) (Auto) 64, Lymphocytes (%) (Auto) 24, Monocytes (%) (Auto) 9, Eosinophils (%) (Auto) 3, Basophils (%) (Auto) 0, Neutrophils # (Auto) 5.2, Lymphocytes # (Auto) 2.0, Monocytes # (Auto) 0.7, Eosinophils # (Auto) 0.2, Basophils # (Auto) 0.0, Immature Granulocyte # (Auto) 0.1, Sodium Level 137, Potassium Level 4.8, Chloride Level 103, Carbon Dioxide Level 24, Anion Gap 10, Blood Urea Nitrogen 34, Creatinine 1.92, Estimat Glomerular Filtration Rate 26, BUN/Creatinine Ratio 18, Glucose Level 148, Calcium Level 10.1, Corrected Calcium 10.7, Total Bilirubin 0.6, Aspartate Amino Transf (AST/SGOT) 17, Alanine Aminotransferase (ALT/SGPT) 16, Alkaline Phosphatase 90, Total Protein 6.2, Albumin 3.2 Discharge Home Medications: Active Scripts Active Humulin R (Insulin Regular, Human) 1,000 Units/10 Ml Soln 20 Unit SC TIDAC 30 Days Pantoprazole Sodium 40 Mg Tablet.dr 40 Mg PO DAILY 30 Days Stool Softener-Laxative Tablet (Sennosides/Docusate Sodium) 1 Each Tablet 1 Ea PO BID 30 Days Percocet 5-325 mg Tablet (Oxycodone HCl/Acetaminophen) 1 Each Tablet 1-2 Tab PO Q2HR PRN Diclofenac Sodium 100 Gm Gel..gram. 0 Gm TOP QID 30 Days Amlodipine Besylate 5 Mg Tablet 5 Mg PO DAILY 30 Days Novolin N (Insulin NPH Human Isophane) 100 Unit/1 Ml Vial 30 Unit SQ HS 30 Days Novolin N (Insulin NPH Human Isophane) 100 Unit/1 Ml Vial 20 Unit SQ DAILY 30 Days Reported Aspirin EC (Aspirin) 81 Mg Tablet.dr 81 Mg PO DAILY Plavix (Clopidogrel Bisulfate) 75 Mg Tablet 75 Mg PO DAILY Metoclopramide HCl 10 Mg Tablet 10 Mg PO BID PRN Atenolol 25 Mg Tablet 25 Mg PO DAILY Allopurinol 100 Mg Tablet 100 Mg PO DAILY Losartan Potassium 100 Mg Tablet 100 Mg PO DAILY Atorvastatin Calcium 80 Mg Tablet 80 Mg PO HS Sertraline HCl 25 Mg Tablet 25 Mg PO HS Oxybutynin Chloride ER (Oxybutynin Chloride) 5 Mg Tab.er.24 5 Mg PO DAILY Ranexa (Ranolazine) 1,000 Mg Tab.er.12h 1,000 Mg PO BID Novolin R (Insulin Regular, Human) 100 Unit/1 Ml Vial 10-20 Unit SC TIDAC Instructions to patient/family Please see electronic discharge instructions given to patient. Diagnosis/Problems Diagnosis/Problems (1) Coronary artery disease involving [place] coronary artery with angina pectoris Assessment & Plan: Her angina is under good control on 3 antianginal medications, aspirin, clopidogrel, and statin medication. 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 (2) Essential hypertension Assessment & Plan: Blood pressures are intermittently elevated. Some of this may be related to her physical therapy. We will continue to monitor. (3) Mixed hyperlipidemia Assessment & Plan: Goal LDL less than 70 mg/dL. Continue statin medication. (4) Supraventricular tachycardia Status: Acute Assessment & Plan: No signs of recurrence. Continue beta-abel. JAG KIRKLAND DO Sep 23, 2020 06:19
[2020-09-23 08:01] VITALS: BP 162/79
[2020-09-23] MEDS: SENNA W/DOCUSATE (SENOKOT S) TABLET PO SCH (09:37)
[2020-09-23] MEDS: DOCUSATE SODIUM 100 MG (COLACE) CAP PO SCH (09:37)
[2020-09-23] MEDS: polyethylene glycoL POWDER 17 GM (MIRALAX) PACK PO SCH (09:37)
[2020-09-23] MEDS: amLODIPine 5 MG (NORVASC) TAB PO SCH (09:38)
[2020-09-23] MEDS: LOSARTAN 100 MG (COZAAR) TABLET PO SCH (09:38)
[2020-09-23] MEDS: CLOPIDOGREL 75 MG (PLAVIX) TABLET PO SCH (09:38)
[2020-09-23] MEDS: ALLOPURINOL 100 MG (ZYLOPRIM) TAB PO SCH (09:38)
[2020-09-23] MEDS: PANTOPRAZOLE 40 MG (PROTONIX) TAB PO SCH (09:38)
[2020-09-23] MEDS: RANOLAZINE ER 500 MG TAB (RANEXA) PO SCH (09:38)
[2020-09-23] MEDS: OXYBUTYNIN (DITROPAN) 5 MG TAB PO SCH (09:38)
[2020-09-23] MEDS: ATENOLOL 25 MG (TENORMIN) TAB PO SCH (09:39)
[2020-09-23] MEDS: ASPIRIN E.C. 81 MG (ECOTRIN) TAB PO SCH (09:39)
[2020-09-23] MEDS: DICLOFENAC 1% GEL 100 GM (VOLTAREN) TUBE TOP SCH ×2 (09:44→13:12)
--- NOTE | 2020-09-23 10:49 | Therapy Team Discharge Summary ---
Therapy Discharge Summary Discharge Recommendations Date of Discharge Therapy D/C Recommendations: Prison (TCU/NH) (OT) Occupational Therapy Pt admitted to ARU s/p L hip fx. At [facility], pt was residing at [facility], she was IND with dressing and toileting, but had someone present when she showered. Upon initial evaluation, pt required set up assistance with eating and oral care, total assist showering (assist x2), CGA upper body dressing, total assist lower body dressing (assist x2), total assist footwear and total assist toileting (assist x2). OT tx has focused on increasing BUE strength and activity tolerance, education on AE for LE dressing, and increasing safety and independence with ADLs and functional mobility. At discharge pt required set up assistance with eating, IND oral care seated at sink, total assist showering (sit to stand lift), set up upper body dressing, total assist lower body dressi ng (sit to stand lift), max A footwear and total assist toileting. Pt made functional progress towards goals, but only attained LTGs for oral care and upper body dressing. Pt to discharge to SNF, with recommendations for continued OT services. D/C from OT. Decreased Activ Tolerance, Decreased Safety Aware, Decreased UE Strength, Dependent Transfers, Impaired Bed Mobility, Impaired Cognition, Impaired Funct Balance, Impaired I ADL's, Impaired Self-Care Skills PT Mcc Goals Mcc Goals PT Outsole Skiver Goals Time Frame: Oct 11, 2020 Roll Left to Right (QC): 6 Sit to Lying (QC): 6 Lying-Sitting on Side/Bed(QC): 6 Sit to Stand (QC): 6 Chair/[id number] Xfer(QC): 6 Car Transfer (QC): 5 Does the Patient Walk: No and Walking Goal IS indicated Walk 10 feet (QC): 6 Walk 10ft-Uneven Surface(QC): 5 Walk 50ft with 2 Turns (QC): 6 Walk 150 ft (QC): 6 Does the Pt use WC or Scooter?: No Wheel 50 feet with 2 turns (QC: 9 1 Step (curb) (QC): 6 4 Steps (QC): 6 12 Steps (QC): 9 Picking up an Object (QC): 4 OT Outsole Skiver Goals Outsole Skiver Goals Time Frame: Oct 08, 2020 Eating (QC): 6 (not met) Oral Hygiene (QC): 6 (met) Shower/Bathe Self (QC): 4 (not met) Upper Body Dressing (QC): 5 (met) Lower Body Dressing (QC): 4 (not met) On/Off Footwear (QC): 4 (notm et) Toileting Hygiene (QC): 4 (not met) Toilet/Commode Transfer (QC): 6 (not met) Additional Goals: 1-Demonstrate ADL Tasks, 2-Verbalize Understanding, 3- ImproveStrength/Ruthie 1=Demonstrate adherence to instructed precautions during ADL tasks. 2=Patient will verbalize/demonstrate understanding of assistive devices/modifications for ADL. 3=Patient will improve strength/tolerance for activity to enable patient to perform ADL's. Speech Outsole Skiver Goals Mcc Goals Patient will improve cognitive function and safety awareness in order to return to SNF with higher level of function. HARLEY LOCKE OT Sep 23, 2020 10:49
--- NOTE | 2020-09-23 11:20 | Therapy Team Discharge Summary ---
Therapy Discharge Summary Discharge Recommendations Date of Discharge Therapy D/C Recommendations: Long Term (TCU/MD) (OT) Physical Therapy Patient came to rehab following a left hip fx. Upon evaluation patient was dependent for bed mobility and transfers, no ambulation, WC mobility min assist. Patient has been performing bed mobility and transfer training, balance and endurance training, functional strengthening, and education. 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 Now, patient performs bed mobility and supine <-> sit max assist, sit <-> stand and transfers with max assist, no ambulation, and can propel a manual WC 150' with setup. Patient is being discharged to NH today and will be discharged from PT at this time. Occupational Therapy Decreased Activ Tolerance, Decreased Safety Aware, Decreased UE Strength, Dependent Transfers, Impaired Bed Mobility, Impaired Cognition, Impaired Funct Balance, Impaired I ADL's, Impaired Self-Care Skills PT Health And Wellness Coach Goals Detention Goals PT Health And Wellness Coach Goals Time Frame: Oct 11, 2020 Roll Left to Right (QC): 6 Sit to Lying (QC): 6 Lying-Sitting on Side/Bed(QC): 6 Sit to Stand (QC): 6 Chair/[id number] Xfer(QC): 6 Car Transfer (QC): 5 Does the Patient Walk: No and Walking Goal IS indicated Walk 10 feet (QC): 6 Walk 10ft-Uneven Surface(QC): 5 Walk 50ft with 2 Turns (QC): 6 Walk 150 ft (QC): 6 Does the Pt use WC or Scooter?: No Wheel 50 feet with 2 turns (QC: 9 1 Step (curb) (QC): 6 4 Steps (QC): 6 12 Steps (QC): 9 Picking up an Object (QC): 4 OT Health And Wellness Coach Goals Detention Goals Time Frame: Oct 08, 2020 Eating (QC): 6 (not met) Oral Hygiene (QC): 6 (met) Shower/Bathe Self (QC): 4 (not met) Upper Body Dressing (QC): 5 (met) Lower Body Dressing (QC): 4 (not met) On/Off Footwear (QC): 4 (notm et) Toileting Hygiene (QC): 4 (not met) Toilet/Commode Transfer (QC): 6 (not met) Additional Goals: 1-Demonstrate ADL Tasks, 2-Verbalize Understanding, 3- ImproveStrength/Ruthie 1=Demonstrate adherence to instructed precautions during ADL tasks. 2=Patient will verbalize/demonstrate understanding of assistive devices/modifications for ADL. 3=Patient will improve strength/tolerance for activity to enable patient to perform ADL's. Speech Detention Goals Health And Wellness Coach Goals Patient will improve cognitive function and safety awareness in order to return to SNF with higher level of function. MOSES SPAULDING PT Sep 23, 2020 11:20
[2020-09-23 13:25] VITALS: BP 162/79
== END 2020-09-23 13:25 | DRG 949 ==
PROVIDERS: ADMIT Internal Medicine; ATTEND Internal Medicine
DX: T84.011D Broken internal left hip prosthesis, subsequent encounter (principal); I42.9 Cardiomyopathy, unspecified; I47.1 Supraventricular tachycardia; I69.354 Hemiplegia and hemiparesis following cerebral infarction affecting left non-dominant side; I69.351 Hemiplegia and hemiparesis following cerebral infarction affecting right dominant side; I12.9 Hypertensive chronic kidney disease with stage 1 through stage 4 chronic kidney disease, or unspecified chronic kidney disease; E11.22 Type 2 diabetes mellitus with diabetic chronic kidney disease; N18.9 Chronic kidney disease, unspecified; E11.43 Type 2 diabetes mellitus with diabetic autonomic (poly)neuropathy; E11.65 Type 2 diabetes mellitus with hyperglycemia; K31.84 Gastroparesis; I69.392 Facial weakness following cerebral infarction; G47.33 Obstructive sleep apnea (adult) (pediatric); I25.119 Atherosclerotic heart disease of native coronary artery with unspecified angina pectoris; M81.0 Age-related osteoporosis without current pathological fracture; G47.00 Insomnia, unspecified; R32 Unspecified urinary incontinence; E78.00 Pure hypercholesterolemia, unspecified; E78.2 Mixed hyperlipidemia; I25.2 Old myocardial infarction; K21.9 Gastro-esophageal reflux disease without esophagitis; D64.9 Anemia, unspecified; Z79.4 Long term (current) use of insulin; Z88.6 Allergy status to analgesic agent; Z83.3 Family history of diabetes mellitus; Z82.49 Family history of ischemic heart disease and other diseases of the circulatory system; W19.XXXD Unspecified fall, subsequent encounter
CPT/HCPCS: 36415; 73560; 80053; 82947; 85025

== ENCOUNTER 2020-11-14 13:35 | Emergency (ER) | payer MEDICARE, OTHER ==
[~2020-11-14] VITALS: Ht 170.2 cm; Wt 90.7 kg
[~2020-11-14 13:35] MED LIST changes: +AMLO-250 PO; +CLOP75TA69 PO; +DICL100G13 TOP; +INSU100V3 SC; +PANT40TA52 PO; +SENN1TAB76 PO
--- NOTE | 2020-11-14 13:44 | ED Lower Extremity ---
General Stated Complaint: L FEMUR FX Source: patient Exam Limitations: no limitations (KAYE SOLORIO APRN) History of Present Illness Date Seen by Provider: Nov 14, 2020 Time Seen by Provider: 13:44 Initial Comments To ER by EMS from [facility] with reports of left hip pain and grinding sensation. She was here on 09/10/2020 for left hip pain after a fall. She was found to have an impacted left femoral neck fracture treated with percutaneous screw to the left femoral neck. Today while walking to the bathroom she noticed some popping and grinding sensation that was very painful though she has had no recurrent fall. Onset: this afternoon Severity: moderate Pain/Injury Location: left hip Method of Injury: unknown Modifying Factors: Improves With Movement (KAYE SOLORIO APRN) Allergies and Home Medications Allergies Coded Allergies: codeine (Verified Allergy, Severe, Shortness of Breath, 11/16/20) bupropion (Verified Allergy, Mild, 11/16/20) COUGH isosorbide (Verified Allergy, Mild, 11/16/20) COUGH levofloxacin (Verified Allergy, Mild, 11/16/20) COUGH ramipril (Verified Allergy, Mild, 11/16/20) COUGH celecoxib (Unverified Allergy, Unknown, 03/08/15) cinacalcet (Verified Allergy, Unknown, 03/07/20) clarithromycin (Verified Allergy, Unknown, 03/07/20) hydrocodone (Verified Adverse Reaction, Unknown, 11/16/20) HYPOTENSION Patient Home Medication List Home Medication List Reviewed: Yes (KAYE SOLORIO APRN) Acetaminophen (Acetaminophen) 500 Mg Tablet, 1,000 MG PO Q6H PRN for PAIN-MILD (1-4) OR TEMPATURE, (Reported) Entered as Reported by: KIKO CABELLO on 11/16/20 0900 Allopurinol (Allopurinol) 100 Mg Tablet, 100 MG PO DAILY, (Reported) Entered as Reported by: АНДРЕЙ MAK on 09/10/20 1148 Amlodipine Besylate (Amlodipine Besylate) 5 Mg Tablet, 5 MG PO DAILY, (Reported) Entered as Reported by: KIKO CABELLO on 11/16/20 0851 Ascorbate Calcium (Vitamin C) 500 Mg Tablet, 500 MG PO BID, (Reported) Entered as Reported by: KIKO CABELLO on 11/16/20 0900 Aspirin (Aspirin EC) 81 Mg Tablet.dr, 81 MG PO DAILY, (Reported) Entered as Reported by: АНДРЕЙ MAK on 09/14/20 1539 Atenolol (Atenolol) 25 Mg Tablet, 25 MG PO DAILY, (Reported) Entered as Reported by: АНДРЕЙ MAK on 09/10/20 1151 Atorvastatin Calcium (Atorvastatin Calcium) 80 Mg Tablet, 80 MG PO HS, (Reported) Entered as Reported by: АНДРЕЙ MAK on 09/10/20 1148 Clopidogrel Bisulfate (Plavix) 75 Mg Tablet, 75 MG PO DAILY, (Reported) Entered as Reported by: АНДРЕЙ MAK on 09/14/20 1539 Diclofenac Sodium (Voltaren Arthritis Pain) 20 Gm Gel..gram., 4 GM TP QID PRN for PAIN-SEE DOSE INSTRUCTIONS, (Reported) Entered as Reported by: KIKO CABELLO on 11/16/20 09 Docusate Sodium (Colace) 100 Mg Capsule, 100 MG PO BID, (Reported) Entered as Reported by: KIKO CABELLO on 11/16/20 09 Insulin NPH Human Isophane (Novolin N) 100 Unit/1 Ml Vial, 30 UNIT SQ HS, (Reported) Entered as Reported by: KIKO CABELLO on 11/16/20 08 Insulin NPH Human Isophane (Novolin N) 100 Unit/1 Ml Vial, 20 UNIT SQ DAILY, (Reported) Entered as Reported by: KIKO CABELLO on 11/16/20 08 Insulin Regular, Human (Humulin R) 1,000 Units/10 Ml Soln, 10 UNITS SQ TIDAC, (Reported) Entered as Reported by: KIKO CABELLO on 11/16/20 08 Losartan Potassium (Losartan Potassium) 100 Mg Tablet, 100 MG PO DAILY, (Report ed) Entered as Reported by: АНДРЕЙ MAK on 09/10/20 114 Magnesium Citrate (Magnesium Citrate) 296 Ml Solution, 296 ML PO DAILY PRN PRN for CONSTIPATION-2ND LINE, (Reported) Entered as Reported by: KIKO CABELLO on 11/16/20 09 Meclizine HCl (Meclizine HCl) 25 Mg Tablet, 25 MG PO BID PRN PRN for NAUSEA/VOMITING, (Reported) Entered as Reported by: KIKO CABELLO on 11/16/20 0900 Melatonin/Pyridoxine (Melatonin 5 mg Tablet) 1 Each Tablet, 1 EACH PO HS, (Reported) Entered as Reported by: KIKO CABELLO on 11/16/20 0851 Metoclopramide HCl (Metoclopramide HCl) 10 Mg Tablet, 10 MG PO BID PRN for NAUSEA/VOMITING-3RD LINE, (Reported) Entered as Reported by: АНДРЕЙ MAK on 09/10/20 1151 Naproxen Sodium (Aleve) 220 Mg Tablet, 220 MG PO Q12H PRN for PAIN-MILD (1-4), (Reported) Entered as Reported by: KIKO CABELLO on 11/16/20 0851 Oxybutynin Chloride (Oxybutynin Chloride ER) 5 Mg Tab.er.24, 5 MG PO DAILY, (Reported) Entered as Reported by: АНДРЕЙ MAK on 03/08/20 1331 Oxycodone HCl/Acetaminophen (Percocet 5-325 mg Tablet) 1 Each Tablet, 1 TAB PO Q4H PRN for PAIN-MODERATE (5-7), (Reported) Entered as Reported by: KIKO CABELLO on 11/16/20 0851 Pantoprazole Sodium (Pantoprazole Sodium) 40 Mg Tablet.dr, 40 MG PO DAILY, (Reported) Entered as Reported by: KIKO CABELLO on 11/16/20 0851 Ranolazine (Ranexa) 1,000 Mg Tab.er.12h, 1,000 MG PO BID, (Reported) Entered as Reported by: CARMELO PETERS on 08/26/18 1218 Sennosides/Docusate Sodium (Stool Softener-Laxative Tablet) 1 Each Tablet, 1 EACH PO BID, (Reported) Entered as Reported by: KIKO CABELLO on 11/16/20 0851 Sertraline HCl (Sertraline HCl) 25 Mg Tablet, 25 MG PO HS, (Reported) Entered as Reported by: АНДРЕЙ MAK on 03/08/20 1331 Discontinued Medications Amlodipine Besylate (Amlodipine Besylate) 5 Mg Tablet, 5 MG PO DAILY Discontinued Reason: New Order Prescribed by: JAG KIRKLAND on 09/23/20 0617 Diclofenac Sodium (Diclofenac Sodium) 100 Gm Gel..gram., 0 GM TOP QID Discontinued Reason: New Order Prescribed by: JAG KIRKLAND on 09/23/20616 Docusate Sodium (Colace) 100 Mg Capsule, 100 MG PO BID Discontinued Reason: New Order Prescribed by: KAYE SOLORIO on 11/14/201554 Last Action: New Order Insulin NPH Human Isophane (Novolin N) 100 Unit/1 Ml Vial, 20 UNIT SQ DAILY Discontinued Reason: New Order Prescribed by: JAG KIRKLAND on 09/23/20616 Insulin NPH Human Isophane (Novolin N) 100 Unit/1 Ml Vial, 30 UNIT SQ HS Discontinued Reason: New Order Prescribed by: JAG KIRKLAND on 09/23/20616 Insulin Regular, Human (Novolin R) 100 Unit/1 Ml Vial, 10-20 UNIT SC TIDAC, (Reported) Discontinued Reason: New Order Entered as Reported by: CARMELO PETERS on 08/26/18 1212 Insulin Regular, Human (Humulin R) 1,000 Units/10 Ml Soln, 20 UNIT SC TIDAC Discontinued Reason: New Order Prescribed by: JAG KIRKLAND on 09/23/20616 Insulin Regular, Human (Humulin R) 1,000 Units/10 Ml Soln, 10 UNITS IJ TID, (Reported) Discontinued Reason: New Order Entered as Reported by: KIKO CABELLO on 11/16/20 0851 Oxycodone HCl/Acetaminophen (Percocet 5-325 mg Tablet) 1 Each Tablet, 1-2 TAB PO Q2HR PRN for PAIN-MODERATE (5-7) Discontinued Reason: New Order Prescribed by: JAG KIRKLAND on 09/23/20617 Oxycodone HCl/Acetaminophen (Oxycodone-Acetaminophen 5-325) 1 Each Tablet, 1 EACH PO Q4H PRN for PAIN-SEVERE Discontinued Reason: New Order Prescribed by: KAYE SOLORIO on 11/14/201554 Last Action: New Order Pantoprazole Sodium (Pantoprazole Sodium) 40 Mg Tablet.dr, 40 MG PO DAILY Discontinued Reason: New Order Prescribed by: JAG KIRKLAND on 09/23/20616 Sennosides/Docusate Sodium (Stool Softener-Laxative Tablet) 1 Each Tablet, 1 EA PO BID Discontinued Reason: New Order Prescribed by: JAG KIRKLAND on 09/23/20616 Review of Systems Constitutional: see HPI EENTM: see HPI Respiratory: no symptoms reported Cardiovascular: no symptoms reported Genitourinary: no symptoms reported Musculoskeletal: see HPI Skin: no symptoms reported Psychiatric/Neurological: No Symptoms Reported (KAYE SOLORIO APRN) Past Klyjbxy-Imltim-Ippzfz Hx Immunizations Up To Date Tetanus Booster (TDap): Less than 5yrs (KAYE SOLORIO APRN) Seasonal Allergies Seasonal Allergies: No (KAYE SOLORIO APRN) Past Medical History Surgeries: Yes (HYSTERECTOMY 1997, LAP. PRIETO 5-6 YRS. AGO, T&A-49 YRS. 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) Neuropathy, Stroke, Vertigo Reproductive Disorders: No Female Reproductive Disorders: Denies Sexually Transmitted Disease: No HIV/AIDS: No Genitourinary: Yes (JUST RECENTLY GOT OVER UTI) Kidney Stones, Renal Failure Gastrointestinal: Yes (constipation) Gastroesophageal Reflux, Chronic Constipation Musculoskeletal: Yes (arthritis) Arthritis, Back Injury Endocrine: Yes Diabetes, Insulin dep HEENT: Yes (CHRONIC BLURRINESS OF RT EYE) Chronic Ear Infection Hearing Impairment: Hard of Hearing Cancer: No Psychosocial: No Integumentary: Yes (healing cyst removal) Blood Disorders: No Adverse Reaction/Blood Tranf: No (KAYE SOLORIO APRN) Family Medical History Cancer (lung and ovarian) 09 BROTHER, Onset:30's - 40 09 SISTER, Onset:60 years & older Congenital heart disease (mitral valve prolapse) 09 SISTER 09 SISTER Congestive heart failure 03 FATHER, Onset:60 years & older 03 MOTHER, Onset:50's - 60 09 SISTER, Onset:60 years & older Family history: Arthritis 03 MOTHER, Onset:60 years & older Family history: Diabetes mellitus 03 FATHER, Onset:60 years & older 09 SISTER, Onset:50's - 60 Family history: Gastrointestinal disease 03 FATHER, Onset:50's - 60 Hereditary disease (HTN) 09 SISTER, Onset:40's - 50 History of - disorder (Urinary problems) 09 SISTER, Onset:60 years & older 09 SISTER, Onset:20's - 25 History of - respiratory disease (asthma) 09 SISTER Hypercholesterolemia 09 SISTER, Onset:50's - 60 Psychotic disorder (anxiety) 09 SISTER, Onset:30's - 40 Heart Disease (KAYE SOLORIO APRN) Physical Exam Vital Signs Vital Signs - First Documented 11/14/20 13:42 Temp 36.2 Pulse 70 Resp 18 B/P (MAP) 149/79 (102) Pulse Ox 96 O2 Delivery Room Air (FE,ROBERT K DO) Vital Signs Capillary Refill : (KAYE SOLORIO APRN) Height, Weight, BMI Height: 5'6.00" Weight: 220lbs. 10.0oz. 100.965456qs; 39.80 BMI Method:Estimated General Appearance: WD/WN, no apparent distress Neck: non-tender, full range of motion Respiratory: no respiratory distress, no accessory muscle use Hips: bilateral hip non-tender, bilateral hip normal inspection; left hip limited range of motion, left hip pain, left hip other (Nontender to palpation but there is pain with range of motion) Legs: bilateral leg non-tender, bilateral leg normal inspection, bilateral leg normal range of motion Knees: bilateral knee non-tender, bilateral knee normal inspection, bilateral knee normal range of motion Ankles: bilateral ankle non-tender, bilateral ankle normal inspection, bilateral ankle normal range of motion Neurologic/Psychiatric: alert, normal mood/affect, oriented x 3 Skin: normal color, warm/dry (KAYE SOLORIO APRN) Progress/Results/Core Measures Results/Orders Vital Signs/I&O 11/14/20 11/14/20 13:42 15:35 Temp 36.2 Pulse 70 71 Resp 18 18 B/P (MAP) 149/79 (102) 149/79 Pulse Ox 96 95 O2 Delivery Room Air Room Air (FE,ROBERT K DO) Departure Communication (Admissions) Family Conversation NAME: CARMELA CARVALHO MED REC#: [id number] PT STATUS: REG ER : 1955 PHYSICIAN: KAYE SOLORIO APRN ADMIT DATE: 11/14/20/ER Draft Date of Exam:11/14/20 PELVIS WITH LEFT HIP 2-3 VIEWS Indication: Left hip pain. Comparison: 09/09/2020. Discussion: Four views of left hip were obtained. There are 3 screws present which appear to have backed out and are no longer seated against the cortex. There is a displaced femoral neck fracture present and most of the screws are above the femoral neck cortex. No dislocation. Soft tissues are unremarkable. Impression: 1. Left femoral fracture, as described, involving 3 fixating screws. Dictated on workstation # [id number] Dict: 11/14/20 1408 Trans: 11/14/20 1415 CV [id number] Interpreted by: CANDY BARAKAT MD Electronically signed by: [id number] spoke with Dr. Villa about the x-ray findings. He has her on the clinic schedule for tomorrow. This will need to be converted to a total hip replacement. Her pain is well controlled and this should be a fine plan. We will send her back to the half-way, pain control and he will see her in the clinic tomorrow to schedule this. (KAYE SOLORIO APRN) Impression Primary Impression: Displacement of orthopedic device Disposition: 01 HOME, SELF-CARE Condition: Stable Departure-Patient Inst. Decision time for Depature: 14:39 (KAYE SOLORIO APRN) Referrals: PATRICE RODNEY MD (PCP/Family) Primary Care Physician Patient Instructions: Hip Fracture Add. Discharge Instructions: 1. Pain medication as directed 2. Follow-up with Dr. Villa tomorrow as scheduled to plan for hip replacement after cardiac clearance. 3. ATTENDING PHYSICIAN NOTE: I WAS PHYSICALLY PRESENT ER PHYSICIAN WHEN THIS PATIENT WAS IN ER, BUT I WAS NOT INVOLVED IN DECISION MAKING OR ANY CARE OF THIS PATIENT (ROBERT MIRAMONTES DO) Copy Copies To 1: FAUSTINO VILLA MD, PETER J APRN Nov 14, 2020 13:44 ROBERT MIRAMONTES DO Nov 16, 2020 15:00
--- NOTE | 2020-11-14 14:16 | Diagnostic Imaging Report ---
Indication: Left hip pain. Comparison: 09/09/2020. Discussion: Four views of left hip were obtained. There are 3 screws present which appear to have backed out and are no longer seated against the cortex. There is a displaced femoral neck fracture present and most of the screws are above the femoral neck cortex. No dislocation. Soft tissues are unremarkable. Impression: 1. Left femoral fracture, as described, involving 3 fixating screws. Dictated by: Dictated on workstation # [id number]
[2020-11-14] MEDS ORDERED: DOCU-143 PO ×2 (14:46→15:55)
[2020-11-14] MEDS ORDERED: OXYC1TAB11 PO ×2 (14:46→15:55)
[2020-11-14 15:35] VITALS: BP 149/79
== END 2020-11-14 15:35 | disposition home or self-care (01) ==
LOC: ER 13:39 → EDUNIT# 13:40 → ER 15:35
DX: T84.428A Displacement of other internal orthopedic devices, implants and grafts, initial encounter (principal); G47.30 Sleep apnea, unspecified; I25.2 Old myocardial infarction; I10 Essential (primary) hypertension; K21.9 Gastro-esophageal reflux disease without esophagitis; E78.00 Pure hypercholesterolemia, unspecified; I25.10 Atherosclerotic heart disease of native coronary artery without angina pectoris; E11.9 Type 2 diabetes mellitus without complications; Z86.73 Personal history of transient ischemic attack (TIA), and cerebral infarction without residual deficits; Z79.01 Long term (current) use of anticoagulants; Z79.82 Long term (current) use of aspirin; Z79.4 Long term (current) use of insulin; Z79.899 Other long term (current) drug therapy

== ENCOUNTER 2020-11-16 05:42 | Outpatient (CLI) | payer MEDICARE, OTHER ==
[~2020-11-16] VITALS: Ht 167.7 cm; Wt 90.8 kg
[~2020-11-16 05:42] MED LIST changes: +OXYC1TAB11 PO
[2020-11-16] MEDS ORDERED: NAPR220T66 PO (08:51)
[2020-11-16] MEDS ORDERED: SENN1TAB76 PO (08:51)
[2020-11-16] MEDS ORDERED: AMLO-250 PO (08:51)
[2020-11-16] MEDS ORDERED: OXYC1TAB87 PO (08:51)
[2020-11-16] MEDS ORDERED: INSU100V3 IJ (08:51)
[2020-11-16] MEDS ORDERED: MELA1TAB15 PO (08:51)
[2020-11-16] MEDS ORDERED: INSN1U SQ ×2 (08:51)
[2020-11-16] MEDS ORDERED: INSU100V3 SQ (08:51)
[2020-11-16] MEDS ORDERED: PANT40TA52 PO (08:51)
[2020-11-16] MEDS ORDERED: ACET-93 PO (09:00)
[2020-11-16] MEDS ORDERED: MAGN296S71 PO (09:00)
[2020-11-16] MEDS ORDERED: DOCU-143 PO (09:00)
[2020-11-16] MEDS ORDERED: MECL-149 PO (09:00)
[2020-11-16] MEDS ORDERED: ASCO-262 PO (09:00)
[2020-11-16] MEDS ORDERED: DICL20GE TP (09:00)
[2020-11-17] MEDS ORDERED: MELA5TAB14 PO (13:07)
== END 2020-11-16 12:00 ==
LOC: PREOP 05:42
PROVIDERS: ATTEND Orthopaedic Surgery
DX: Z01.812 Encounter for preprocedural laboratory examination (principal); M25.552 Pain in left hip; Z20.822 Contact with and (suspected) exposure to COVID-19
CPT/HCPCS: 87635; 87636

== ENCOUNTER 2020-11-17 07:02 | Inpatient (IN) | payer MEDICARE, OTHER ==
[2020-11-17] VITALS (11 sets, daily range): BP systolic 84–152; BP diastolic 53–93
[~2020-11-17] VITALS: Ht 167.7 cm; Wt 90.8 kg
--- NOTE | 2020-11-17 06:48 | HISTORY AND PHYSICAL ---
DATE OF SERVICE: ADMISSION HISTORY AND PHYSICAL DATE OF ADMISSION: 11/17/2020. This will be for inpatient admission on 11/17/2020 for left hip hardware removal with conversion to bipolar replacement. HISTORY OF PRESENT ILLNESS: The patient is a 65-year-old female, who, just over two months ago, underwent percutaneous screw fixation for a left nondisplaced femoral neck fracture. The patient has had increased pain. 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 The patient reports no injuries. PAST MEDICAL HISTORY: Significant for coronary artery disease, diabetes mellitus, hypothyroidism, hypertension, and hypercholesterolemia. SOCIAL HISTORY: The patient denies alcohol or tobacco use. FAMILY HISTORY: Significant for coronary artery disease and hypertension. PAST SURGICAL HISTORY: Tonsillectomy, cholecystectomy, hysterectomy, oophorectomy, left tibia, and left hip. ALLERGIES: BIAXIN, LEVAQUIN, CELEBREX, CODEINE, and HYDROCODONE. MEDICATIONS: Prolia, Reglan, insulin, magnesium, TRUEplus, allopurinol, Nitrostat, atenolol, Ranexa, aspirin, meclizine, atorvastatin, and losartan. PHYSICAL EXAMINATION: GENERAL: The patient is well-developed, well-nourished, in no acute distress. HEENT: Normocephalic and atraumatic. Pupils are equal, round and reactive to light. Oropharynx is clear. NECK: Supple, no lymphadenopathy. LUNGS: Clear to auscultation bilaterally. HEART: Regular rate and rhythm. ABDOMEN: Soft, nontender, and nondistended. EXTREMITIES: The left hip demonstrates pain with internal and external rotation. Screws are palpable, but no skin tenting is noted. Her incision is well healed. IMPRESSION: Hardware failure, left hip with femoral neck fracture. PLAN: Hardware removal and conversion to bipolar replacement. We discussed risks, benefits, options, ramifications and recovery. She understands and wishes to proceed. Job ID: [id number] DocumentID: [id number] Dictated Date: 11/15/2020 11:10:27 Contact Lens Molder Date: 11/15/2020 12:32:17 Dictated By: FAUSTINO REAVES MD
[~2020-11-17 07:02] MED LIST changes: +ACET-93 PO; +ASCO-262 PO; +DICL20GE TP; +INSU100V3 IJ; +INSU100V3 SQ; +MAGN296S71 PO; +MELA1TAB15 PO; +NAPR220T66 PO
[2020-11-17] MEDS ORDERED: ACETAMINOPHEN 325 MG TABLET PO PRN (07:30)
[2020-11-17] MEDS ORDERED: ONDANSETRON 4 MG/2 ML (SDV) Z0FRAN IVP PRN ×2 (07:30→11:15)
[2020-11-17] MEDS ORDERED: diphenhydrAMINE 50 MG/ML INJ (BENADRYL) IVP PRN (07:30)
--- NOTE | 2020-11-17 07:38 | Progress Note-Pre Operative ---
Pre-Operative Progress Note H&P Reviewed The H&P was reviewed, patient examined and no changes noted. Date Seen by Provider: Nov 17, 2020 Time Seen by Provider: 07:38 Date H&P Reviewed: Nov 17, 2020 Time H&P Reviewed: 07:38 Pre-Operative Diagnosis: left femoral neck fracture with failed hardware FAUSTINO REAVES MD Nov 17, 2020 07:38
--- NOTE | 2020-11-17 07:39 | Progress Note-Post Operative ---
Post-Operative Progess Note Surgeon (s)/Patternmaker Metal Bench (s) Surgeon FAUSTINO REAVES MD Patternmaker Metal Bench: Nithin Canales Pre-Operative Diagnosis left femoral neck fracture with failed hardware Post-Operative Diagnosis left femoral neck fracture with failed hardware Procedure & Operative Findings Date of Procedure 11/17/20 Procedure Performed/Findings hardware removal left femoral neck and bipolar replacement Anesthesia Type GETA Estimated Blood Loss Estimated blood loss (mL): 400 ml Specimens/Packing Specimens Removed femoral head Packing: none FAUSTINO REAVES MD Nov 17, 2020 07:39
[2020-11-17] MEDS: NS IV 1000 ML 1,000 ML IV SCH ×3 (07:50→12:23)
[2020-11-17] MEDS ORDERED: NS IV 1000 ML 1,000 ML ONE (07:54)
[2020-11-17] MEDS ORDERED: NS IV 500 ML 500 ML IV SCH (08:15)
[2020-11-17] MEDS ORDERED: BUPIVACAINE 0.5% 30 ML (SENSORCAINE) VIAL ONE (09:03)
[2020-11-17] MEDS: CEFUROXIME INJECTION 1,500 MG in WATER (STERILE) FOR INJECTION 15 ML IV ONE ×2 (09:30→09:40)
[2020-11-17] MEDS ORDERED: MEPERIDINE (DEMEROL) INJ 50 MG/ML IVP ONE (11:15)
[2020-11-17] MEDS ORDERED: fentaNYL INJ 100 MCG/2 ML AMP IVP ONE (11:15)
--- NOTE | 2020-11-17 11:35 | Diagnostic Imaging Report ---
INDICATION: Postop left hip TECHNIQUE: Single, postoperative view of the left hip 1114 a.m. CORRELATION STUDY: None FINDINGS: Postoperative unipolar left hip arthroplasty appears to be in satisfactory alignment on single postoperative projection. There are overlying skin umer and soft tissue gas collections. IMPRESSION: 1. Immediate postoperative changes left hip replacement. Dictated by: Dictated on workstation # [id number]
[2020-11-17] MEDS: morphine INJ 4 MG/ML 1 ML (VIAL/SYRINGE) IVP PRN ×2 (12:23→14:46)
[2020-11-17] MEDS: SENNOSIDES 8.6 MG (SENOKOT) TAB PO SCH ×2 (12:32→20:41)
[2020-11-17] MEDS: PROMETHAZINE INJ 25 MG/ML (PHENERGAN) AMP IVP PRN (12:46)
[2020-11-17] MEDS ORDERED: MELA5TAB14 PO (13:07)
--- NOTE | 2020-11-17 14:15 | Physical Therapy Evaluation ---
PT Evaluation-General Medical Diagnosis Admission Date Nov 17, 2020 at 07:02 Medical Diagnosis: Right CHALINO Onset Date: Nov 16, 2020 Therapy Diagnosis Therapy Diagnosis: Gait deficit, strength deficit Height/Weight Height (Feet): 5 Height (Inches): 6.00 Weight (Pounds): 220 Weight (Ounces): 10.0 Precautions Precautions/Isolations: Fall Prevention, Standard Precautions Hip precautions Weight Bear Status Right Lower Extremity: Right Full Weight Bearing Left Lower Extremity: Left Partial Weight Bearing Referral Physician: Dr. Villa Reason for Referral: Evaluation/Treatment Medical History Pertinent Medical History: Arthritis, CAD, CVA, DM, HTN, [place], Neuropathy Social History Home: Longterm Current Living Status: Alone Patient currently staying at [facility] in the [facility], however prior to left hip injury she was residing in the [facility] and was able to ambulate short distances with her FWW. Prior Prior Level of Function SCALE: Activities may be completed with or without assistive devices. 0-Qfycwlrohe-yovkhsj completes the activity by him/herself with no assistance from a helper. 5-Set-up or Clean-up Assistance-helper sets up or cleans up; patient completes activity. [place] assists only prior to or following the activity. 4-Supervision or Touching Assistance-helper provides verbal cues and/or touching/steadying and/or contact guard assistance as patient completes activity. Assistance may be provided throughout the activity or intermittently. 3-Partial/Moderate Assistance-helper does LESS THAN HALF the effort. [place] lifts, holds or supports trunk or limbs, but provides less than half the effort. 2-Substantial/Maximal Assistance-helper does MORE THAN HALF the effort. [place] lifts or holds trunk or limbs and provides more than half the effort. 6-Pqfddbxlw-mleyzp does ALL the effort. Patient does none of the effort to complete the activity. Or, the assistance of 2 or more helpers is required for the patient to complete the activity. If activity was not attempted, code reason: 7-Patient Refused. 9-Not Applicable-not attempted and the patient did not perform the activity before the current illness, exacerbation or injury. 10-Not Attempted due to Environmental Limitations-(lack of equipment, weather restraints, etc.). 88-Not Attempted due to Medical Conditions or Safety Concerns. Bed Mobility: 5 Transfers (B,C,W/C): 5 Gait: 4 Stairs: 9 Wheelchair Mobility: 9 Indoor Mobility (Ambulation): Needed Some Help Stairs: Not Applicalbe Prior Devices Use: Walker PT Evaluation-Current Subjective Patient very lethargic, family reports she hasn't been to the floor very long and hasn't really awakened from surgery. Patient reports no pain at rest, however demonstrates significant difficulty verbally expressing herself. Objective Patient Orientation: Person, Place, Time, Situation Attachments: Leiva Catheter, IV ROM/Strength ROM Lower Extremities Left hip limited in all planes due to recent surgery. Strength Lower Extremities Right LE grossly 3+/5; Left LE 2+/5 in hip and 3/5 knee and ankle Sensory Vision: Wears Glasses Hearing: Impaired Sensation Right Lower Extremit: Intact Sensation Left Lower Extremity: Intact Transfers Roll Left to Right (QC): 1 Sit to Lying (QC): 1 Lying to Sitting/Side of Bed(Q: 1 Sit to Stand (QC): 1 Chair/Pgc-qz-Ynjxb Xfer(QC): 88 Gait Does the Patient Walk?: No and Walking Goal IS indicated Mode of Locomotion: Both Anticipated Mode of Locomotion: Both Walk 10 feet (QC): 88 Wheelchair Training Does the Pt Use a Wheelchair?: Yes Balance Sitting Static: Fair Sitting Dynamic: Fair Standing Static: Poor Standing Dynamic: Poor Assessment/Needs Patient lying supine in bed upon PT arrival, patients family in the room, all agreeable to treatment. Patient and family educated on hip precautions, patient able to recall 1/3 prior to education; No crossing legs. Patient requires total assist for all observed bed mobility. Patient yells in pain for a brief second upon performing supine to sit, however reports pain quickly resolves. Patient sits at edge of bed ~ 10 minutes with min/mod A to maintain sitting. Patient is able to sit with SBA for ~ 10 seconds if placed in the appropriate position, however unable to maintain longer than that. Patient requires total assistance for transfer back to bed and total assistance x 2 for sliding upon in the bed. Patient in chair post treatment with all needs met, nursing notified, family in the room and call light in hand. Rehab Potential: Guarded Post Rehab Potential-Barriers: Patient PLOF before surgery Equipment Needs None at this time PT Short Term Goals Short Term Goals Time Frame: Dec 01, 2020 Roll Left & Right: 3 Sit to lyin Lying to sitting on side of be: 3 Sit to stand: 3 Chair/snz-ft-nxunt transfer: 2 Toilet transfer: 2 PT Yard Laborer Goals Chcf Goals PT Chcf Goals Time Frame: Dec 22, 2020 Roll Left & Right (QC): 4 Sit to Lying (QC): 4 Lying-Sitting on Side/Bed(QC): 4 Sit to Stand (QC): 4 Chair/Cgl-ap-Golfz Xfer(QC): 4 Toilet Transfer (QC): 4 Does the Patient Walk: No and Walking Goal IS indicated Walk 10 feet (QC): 2 PT Plan Problem List Problem List: Activity Tolerance, Functional Strength, Balance, Gait, Transfer, Bed Mobility, ROM Treatment/Plan Treatment Plan: Continue Plan of Care Treatment Plan: Bed Mobility, Education, Functional Activity Ruthie, Functional Strength, Group Therapy, Gait, Safety, Therapeutic Exercise, Transfers Treatment Duration: Jan 26, 2021 Frequency: 11 times per week Estimated Hrs Per Day: .25 hour per day Patient and/or Family Agrees t: Yes Safety Risks/Education Patient Education: Transfer Techniques, Reviewed Precautions Teaching Recipient: Patient, Family Teaching Methods: Demonstration, Discussion Response to Teaching: Reinforcement Needed Time/GCodes Time In: 1330 Time Out: 1415 Total Billed Treatment Time: 45 Total Billed Treatment Visit, CORKY Santana (2) CHRISTIANO GUTIERREZ PT Nov 17, 2020 14:15
--- NOTE | 2020-11-17 14:29 | OPERATIVE REPORT ---
DATE OF SERVICE: 11/17/2020 PREOPERATIVE DIAGNOSIS: Left femoral neck fracture with failed hardware. POSTOPERATIVE DIAGNOSIS: Left femoral neck fracture with failed hardware. PROCEDURES: 1. Left hip bipolar replacement. 2. Left hip hardware removal. SURGEON: Vasiliy Reaves MD TICKET SPECULATOR: Nithin Canales, who assisted throughout the procedure and closed the incision. ANESTHESIA: General endotracheal by Nithin Fletcher CRNA. ESTIMATED BLOOD LOSS: 400 mL. DRAINS: None. COMPLICATIONS: None. POSTOPERATIVE PLAN: Routine hip protocol. CONDITION: The patient was transferred to the recovery room awake and stable condition. MATERIALS: Microport cemented size 12 femur with a neutral neck and a 46 liner. STATEMENT OF MEDICAL NECESSITY: The patient is a 65-year-old female who 2 months ago underwent percutaneous screw fixation for a nondisplaced femoral neck fracture. She presented to the office on Sunday with increased hip pain and her screws had cut out and her fracture had displaced. Because of this, it was recommended the patient undergo conversion to bipolar replacement with hardware removal. DESCRIPTION OF PROCEDURE: After risks and benefits of procedure were discussed and questions were answered, an informed consent was signed and placed on the chart. The operative site was confirmed in the preoperative holding area initialed by the surgeon. The patient was then transferred to the operating room and after adequate levels of general endotracheal anesthetic were obtained, a timeout was called, confirming the operative site. The patient was carefully placed in the right lateral decubitus position, being careful to place an axillary roll and pad all bony prominences. The left hip and lower extremity were prepped and draped in the usual sterile fashion. The previous incision was extended proximally. The underlying soft tissues were carefully dissected. The iliotibial band was incised in line with the incision. The screws were identified and removed without difficulty. No significant deterioration of the femoral cortex was noted. The abductor was then released from the greater trochanter, leaving 1 cm cuff for later reattachment. The femoral neck cut was made using a broach as a guide. The femoral head was then removed without difficulty. The joint was inspected for loose bodies and irrigated copiously. The proximal femur was then prepared with the box chisel followed by the hand reamers and broaches to a size 12, 12 provided excellent fill. This was then trialled with a neutral neck and a 46 liner and head. The hip was reduced and found to be stable in all planes with no limitations of motion and no impingement noted. The trials were removed. The joint was further irrigated with pulse lavage. The acetabulum was inspected for any loose bodies. The prosthesis was then placed in a press-fit fashion and 12 degrees of anteversion. The head liner construct was then placed. Hip was reduced and taken through range of motion with no impingement noted and full range of motion and no instability noted in any plane. The joint was further irrigated with pulse lavage. The capsule and abductors were reapproximated with a #5 Tevdek in [id number] interrupted fashion. The wound was further irrigated. The iliotibial band was closed in a running fashion with #1 Vicryl. The wound was further irrigated, 0 Vicryl was used for deep subcutaneous tissue, 2-0 Vicryl for the superficial subcutaneous tissue, umer were used on the skin. The incision was infiltrated with plain Marcaine. A soft dressing was applied and the patient was transferred to the recovery room awake and in stable condition. Job ID: [id number] DocumentID: [id number] Dictated Date: 11/17/2020 10:56:57 Boot And Saddle Repair Person Date: 11/17/2020 14:29:22 Dictated By: VASILIY REAVES MD
[2020-11-17] MEDS: CEFUROXIME INJECTION 750 MG in WATER (STERILE) FOR INJECTION 10 ML IV SCH (14:45)
[2020-11-17] MEDS: oxyCODONE/APAP 5/325MG (PERCOCET 5) TABLET PO PRN ×2 (14:46→20:42)
--- NOTE | 2020-11-17 16:54 | Consultation ---
History of Present Illness History of Present Illness Patient Consulted On(shahid/time) 11/17/20 16:50 Date Seen by Provider: Nov 17, 2020 Time Seen by Provider: 16:50 History of Present Illness 65-year-old female presents to [facility] for surgical correction of a failed hardware repair to a left hip fracture previously in 2019. She underwent hip replacement today. She does also have medical problems that are currently stable but need to be followed during the course of her hospital stay. Allergies and Home Medications Allergies Coded Allergies: codeine (Verified Allergy, Severe, SOA, pt has rec Lortab, Percocet, morphine in the past, 11/17/20) bupropion (Verified Allergy, Mild, 11/16/20) COUGH isosorbide (Verified Allergy, Mild, 11/16/20) COUGH levofloxacin (Verified Allergy, Mild, 11/16/20) COUGH ramipril (Verified Allergy, Mild, 11/16/20) COUGH celecoxib (Unverified Allergy, Unknown, 03/08/15) cinacalcet (Verified Allergy, Unknown, 03/07/20) clarithromycin (Verified Allergy, Unknown, 03/07/20) hydrocodone (Verified Adverse Reaction, Unknown, 11/16/20) HYPOTENSION Patient Home Medication List Home Medication List Reviewed: Yes Acetaminophen (Acetaminophen) 500 Mg Tablet, 1,000 MG PO Q6H PRN for PAIN-MILD (1-4) OR TEMPATURE, (Reported) Entered as Reported by: KIKO CABELLO on 11/16/20 0900 Last Action: Reviewed Allopurinol (Allopurinol) 100 Mg Tablet, 100 MG PO DAILY, (Reported) Entered as Reported by: АНДРЕЙ MAK on 09/10/20 1148 Last Action: Reviewed Amlodipine Besylate (Amlodipine Besylate) 5 Mg Tablet, 5 MG PO DAILY, (Reported) Entered as Reported by: KIKO CABELLO on 11/16/20 0851 Last Action: Reviewed Ascorbate Calcium (Vitamin C) 500 Mg Tablet, 500 MG PO BID, (Reported) Entered as Reported by: KIKO CABELLO on 11/16/20 0900 Last Action: Reviewed Aspirin (Aspirin EC) 81 Mg Tablet.dr, 81 MG PO DAILY, (Reported) Entered as Reported by: АНДРЕЙ MAK on 09/14/20 1539 Last Action: Reviewed Atenolol (Atenolol) 25 Mg Tablet, 25 MG PO DAILY, (Reported) Entered as Reported by: АНДРЕЙ MAK on 09/10/20 1151 Last Action: Reviewed Atorvastatin Calcium (Atorvastatin Calcium) 80 Mg Tablet, 80 MG PO HS, (Reported) Entered as Reported by: АНДРЕЙ MAK on 09/10/20 114 Last Action: Reviewed Clopidogrel Bisulfate (Plavix) 75 Mg Tablet, 75 MG PO DAILY, (Reported) Entered as Reported by: АНДРЕЙ MAK on 09/14/20 1539 Last Action: Reviewed Diclofenac Sodium (Voltaren Arthritis Pain) 20 Gm Gel..gram., 4 GM TP QID, (Reported) Entered as Reported by: KIKO CABELLO on 11/16/20899 Last Action: Reviewed Docusate Sodium (Colace) 100 Mg Capsule, 100 MG PO BID, (Reported) Entered as Reported by: KIKO CABELLO on 11/16/20899 Last Action: Reviewed Insulin NPH Human Isophane (Novolin N) 100 Unit/1 Ml Vial, 30 UNIT SQ HS, (Reported) Entered as Reported by: KIKO CABELLO on 11/16/20850 Last Action: Reviewed Insulin NPH Human Isophane (Novolin N) 100 Unit/1 Ml Vial, 20 UNIT SQ DAILY, (Reported) Entered as Reported by: KIKO CABELLO on 11/16/20850 Last Action: Reviewed Insulin Regular, Human (Humulin R) 1,000 Units/10 Ml Soln, 10 UNITS SQ TIDAC, (Reported) Entered as Reported by: KIKO CABELLO on 11/16/20850 Last Action: Reviewed Losartan Potassium (Losartan Potassium) 100 Mg Tablet, 100 MG PO DAILY, (Reported) Entered as Reported by: АНДРЕЙ MAK on 09/10/201147 Last Action: Reviewed Magnesium Citrate (Magnesium Citrate) 296 Ml Solution, 296 ML PO DAILY PRN for CONSTIPATION-9TH LINE, (Reported) Entered as Reported by: KIKO CABELLO on 11/16/20899 Last Action: Reviewed Meclizine HCl (Meclizine HCl) 25 Mg Tablet, 25 MG PO BID PRN PRN for NAUSEA/VOMITING, (Reported) Entered as Reported by: KIKO CABELLO on 9/14/21 0900 Last Action: Reviewed Melatonin (Melatonin) 5 Mg Tablet, 5 MG PO HS, (Reported) Entered as Reported by: АНДРЕЙ MAK on 11/17/20 1307 Last Action: Reviewed Metoclopramide HCl (Metoclopramide HCl) 10 Mg Tablet, 10 MG PO BID PRN for NAUSEA/VOMITING-3RD LINE, (Reported) Entered as Reported by: АНДРЕЙ MAK on 09/10/20 1151 Last Action: Reviewed Naproxen Sodium (Aleve) 220 Mg Tablet, 220 MG PO Q12H PRN for PAIN-MILD (1-4), (Reported) Entered as Reported by: KIKO CABELLO on 11/16/20 08 Last Action: Reviewed Oxybutynin Chloride (Oxybutynin Chloride ER) 5 Mg Tab.er.24, 5 MG PO DAILY, (Reported) Entered as Reported by: АНДРЕЙ MAK on 03/08/20 1331 Last Action: Reviewed Oxycodone HCl/Acetaminophen (Percocet 5-325 mg Tablet) 1 Each Tablet, 1 TAB PO Q4H PRN for PAIN-MODERATE (5-7), (Reported) Entered as Reported by: KIKO CABELLO on 11/16/20850 Last Action: Reviewed Pantoprazole Sodium (Pantoprazole Sodium) 40 Mg Tablet.dr, 40 MG PO DAILY, (Reported) Entered as Reported by: KIKO CABELLO on 11/16/20850 Last Action: Reviewed Ranolazine (Ranexa) 1,000 Mg Tab.er.12h, 1,000 MG PO BID, (Reported) Entered as Reported by: CARMELO PETERS on 08/26/18 1218 Last Action: Reviewed Sennosides/Docusate Sodium (Stool Softener-Laxative Tablet) 1 Each Tablet, 1 EACH PO BID, (Reported) Entered as Reported by: KIKO CABELLO on 11/16/20850 Last Action: Reviewed Sertraline HCl (Sertraline HCl) 25 Mg Tablet, 25 MG PO HS, (Reported) Entered as Reported by: АНДРЕЙ MAK on 03/08/20 1331 Last Action: Reviewed Discontinued Medications Amlodipine Besylate (Amlodipine Besylate) 5 Mg Tablet, 5 MG PO DAILY Discontinued Reason: New Order Prescribed by: JAG KIRKLAND on 7/22/21 0617 Diclofenac Sodium (Diclofenac Sodium) 100 Gm Gel..gram., 0 GM TOP QID Discontinued Reason: New Order Prescribed by: JAG KIRKLAND on 09/23/20616 Docusate Sodium (Colace) 100 Mg Capsule, 100 MG PO BID Discontinued Reason: New Order Prescribed by: KAYE SOLORIO on 11/14/201554 Insulin NPH Human Isophane (Novolin N) 100 Unit/1 Ml Vial, 20 UNIT SQ DAILY Discontinued Reason: New Order Prescribed by: JAG KIRKLAND on 09/23/20616 Insulin NPH Human Isophane (Novolin N) 100 Unit/1 Ml Vial, 30 UNIT SQ HS Discontinued Reason: New Order Prescribed by: JAG KIRKLAND on 09/23/20616 Insulin Regular, Human (Novolin R) 100 Unit/1 Ml Vial, 10-20 UNIT SC TIDAC, (Reported) Discontinued Reason: New Order Entered as Reported by: CARMELO PETERS on 08/26/18 1212 Insulin Regular, Human (Humulin R) 1,000 Units/10 Ml Soln, 20 UNIT SC TIDAC Discontinued Reason: New Order Prescribed by: JAG KIRKLAND on 09/23/20616 Insulin Regular, Human (Humulin R) 1,000 Units/10 Ml Soln, 10 UNITS IJ TID, (Reported) Discontinued Reason: New Order Entered as Reported by: KIKO CABELLO on 11/16/20 0851 Melatonin/Pyridoxine (Melatonin 5 mg Tablet) 1 Each Tablet, 1 EACH PO HS, (Reported) Discontinued Reason: Prescription changed Entered as Reported by: KIKO CABELLO on 11/16/20 0851 Oxycodone HCl/Acetaminophen (Percocet 5-325 mg Tablet) 1 Each Tablet, 1-2 TAB PO Q2HR PRN for PAIN-MODERATE (5-7) Discontinued Reason: New Order Prescribed by: JAG KIRKLAND on 09/23/2018 Oxycodone HCl/Acetaminophen (Oxycodone-Acetaminophen 5-325) 1 Each Tablet, 1 EACH PO Q4H PRN for PAIN-SEVERE Discontinued Reason: New Order Prescribed by: KAYE SOLORIO on 11/14/201554 Pantoprazole Sodium (Pantoprazole Sodium) 40 Mg Tablet.dr, 40 MG PO DAILY Discontinued Reason: New Order Prescribed by: JAG KIRKLAND on 09/23/20616 Sennosides/Docusate Sodium (Stool Softener-Laxative Tablet) 1 Each Tablet, 1 EA PO BID Discontinued Reason: New Order Prescribed by: JAG Skelton ISAEL on 09/23/20616 Past Uprjgzl-Iihmiw-Bkbgwy Hx Patient Social History Tobacco Use?: No Immunizations Up To Date Tetanus Booster (TDap): Unknown First/Initial COVID19 Vaccinat: YES Seasonal Allergies Seasonal Allergies: No Past Medical History Surgery/Hospitalization HX: PT HAS HX OF LEFT HIP SURGERY STATES SHE HAS 2 PINS IN IT Surgeries: Yes (HYSTERECTOMY 1997, LAP. PRIETO 5-6 YRS. AGO, T&A-49 YRS. 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 Sexually Transmitted Disease: No HIV/AIDS: No Genitourinary: Yes (CHRONIC KIDNEY DISEASE) Kidney Stones, Renal Failure Gastrointestinal: Yes (GASTROPARESIS) Gastroesophageal Reflux, Chronic Constipation Musculoskeletal: Yes (HISTORY OF FALLS/WEAKNESS) Osteoporosis, Arthritis, Back Injury Endocrine: Yes Diabetes, Insulin dep HEENT: Yes (CHRONIC BLURRINESS OF RT EYE) Chronic Ear Infection Hearing Impairment: Hard of Hearing Cancer: No Psychosocial: Yes Sleep Difficulties Integumentary: Yes (healing cyst removal) Blood Disorders: No Adverse Reaction/Blood Tranf: No Family Medical History Cancer (lung and ovarian) 09 BROTHER, Onset:30's - 40 09 SISTER, Onset:60 years & older Congenital heart disease (mitral valve prolapse) 09 SISTER 09 SISTER Congestive heart failure 03 FATHER, Onset:60 years & older 03 MOTHER, Onset:50's - 60 09 SISTER, Onset:60 years & older Family history: Arthritis 03 MOTHER, Onset:60 years & older Family history: Diabetes mellitus 03 FATHER, Onset:60 years & older 09 SISTER, Onset:50's - 60 Family history: Gastrointestinal disease 03 FATHER, Onset:50's - 60 Hereditary disease (HTN) 09 SISTER, Onset:40's - 50 History of - disorder (Urinary problems) 09 SISTER, Onset:60 years & older 09 SISTER, Onset:20's - 25 History of - respiratory disease (asthma) 09 SISTER Hypercholesterolemia 09 SISTER, Onset:50's - 60 Psychotic disorder (anxiety) 09 SISTER, Onset:30's - 40 Heart Disease Review of Systems-General Constitutional: see HPI Physical Exam-General Problems Physical Exam Vital Signs Vital Signs - First Documented 11/17/20 07:10 Temp 36.3 Pulse 73 Resp 16 B/P (MAP) 152/93 (112) Pulse Ox 97 O2 Delivery Room Air Capillary Refill : Less Than 3 Seconds General Appearance: no apparent distress Neck: non-tender Respiratory: lungs clear Cardiovascular: regular rate, rhythm Gastrointestinal: soft Extremities: normal capillary refill Neurologic/Psychiatric: alert, normal mood/affect Skin: normal color Assessment/Plan Assessment/Plan Admission Diagnosis/Plan 1. Failed left hip repair due to hardware -Orthopedics following 2. Hypertension -Will add on her amlodipine as deemed necessary 3. Diabetes mellitus -Insulin sliding scale 4. Hypercholesterolemia Admission Status: Inpatient Order (span 2 midnights) Reason for Inpatient Admission: Left hip replacement per PATRICE Perez MD Nov 17, 2020 16:53
[2020-11-18] MEDS: CEFUROXIME INJECTION 750 MG in WATER (STERILE) FOR INJECTION 10 ML IV SCH (00:02)
[2020-11-18 03:13] VITALS: BP 140/77
[2020-11-18] MEDS: oxyCODONE/APAP 5/325MG (PERCOCET 5) TABLET PO PRN ×3 (06:27→12:17)
[2020-11-18] MEDS: MULTIVIT W/MINERALS TAB (THERAGRAN M) PO SCH (06:27)
[2020-11-18 06:33] LABS: HEMOGLOBIN 8.6 g/dL (11.5-16.0)
[2020-11-18] MEDS ORDERED: inSUlin ASPART (NovoLOG) 1 UNIT/0.01 ML (CHARGE PER UNIT) SC SCH (06:45)
--- NOTE | 2020-11-18 06:50 | Progress Note ---
Subjective Date Seen by a Provider: Nov 18, 2020 Time Seen by a Provider: 06:40 Subjective/Events-last exam Patient was alert this morning and does not appear to be in any distress. She does not voice any shortness of breath or chest discomfort. Objective Exam Vital Signs Date Time Temp Pulse Resp B/P (MAP) Pulse Ox O2 Delivery O2 Flow Rate FiO2 11/18/20 03:13 36.9 81 18 140/77 (98) 95 Room Air 11/17/20 23:56 36.3 73 18 148/74 (98) 96 Room Air 11/17/20 20:35 Room Air 11/17/20 19:54 35.8 71 20 139/86 (103) 96 Room Air 11/17/20 16:35 35.6 59 18 94/53 (67) 97 Room Air 11/17/20 12:13 Room Air 11/17/20 12:06 35.8 63 18 122/72 (89) 96 Room Air 11/17/20 11:52 Room Air 11/17/20 11:50 36.3 14 119/83 (95) 96 11/17/20 11:43 OxyMask 1 11/17/20 11:40 13 124/80 (95) 99 OxyMask 2 11/17/20 11:30 14 122/78 (93) 100 OxyMask 10 11/17/20 11:30 OxyMask 10 11/17/20 11:20 19 108/71 (83) 100 OxyMask 10 11/17/20 11:15 OxyMask 10 11/17/20 11:10 16 87/57 (67) 100 OxyMask 10 11/17/20 11:00 OxyMask 10 11/17/20 11:00 36.1 16 84/61 (69) 100 OxyMask 10 11/17/20 07:10 36.3 73 16 152/93 (112) 97 Room Air I & O 11/18/20 07:00 Intake Total 1665 ml Output Total 1250 ml Balance 415 ml Capillary Refill : Less Than 3 Seconds General Appearance: No Apparent Distress Neck: Supple Respiratory: Lungs Clear Cardiovascular: Regular Rate, Rhythm Extremity: Other (Movement of lower extremity noted) Neurologic/Psychiatric: Alert, Normal Mood/Affect Results Lab Laboratory Tests 11/17/20 07:30: Glucometer 193H 11/18/20 05:19: Hemoglobin 8.6L, Hematocrit 26L Assessment/Plan Assessment/Plan Assess & Plan/Chief Complaint 1. Failed left hip repair due to hardware -Orthopedics following 08/18 -Postop day #2 2. Hypertension -Will add on her amlodipine as deemed necessary 3. Diabetes mellitus -Insulin sliding scale 4. Hypercholesterolemia PATRICE RODNEY MD Nov 18, 2020 06:50
[2020-11-18 08:00] VITALS: BP 110/72
--- NOTE | 2020-11-18 08:03 | Progress Note ---
Standard Progress Note Progress Notes/Assess & Plan Date Seen by a Provider: Nov 18, 2020 Time Seen by a Provider: 08:01 Progress/Assessment & Plan no complaints radiographs--HW well positioned without fracture Vital Signs Date Time Temp Pulse Resp B/P (MAP) Pulse Ox O2 Delivery O2 Flow Rate FiO2 11/18/20 03:13 36.9 81 18 140/77 (98) 95 Room Air 11/17/20 23:56 36.3 73 18 148/74 (98) 96 Room Air 11/17/20 20:35 Room Air 11/17/20 19:54 35.8 71 20 139/86 (103) 96 Room Air 11/17/20 16:35 35.6 59 18 94/53 (67) 97 Room Air 11/17/20 12:13 Room Air 11/17/20 12:06 35.8 63 18 122/72 (89) 96 Room Air 11/17/20 11:52 Room Air 11/17/20 11:50 36.3 14 119/83 (95) 96 11/17/20 11:43 OxyMask 1 11/17/20 11:40 13 124/80 (95) 99 OxyMask 2 11/17/20 11:30 14 122/78 (93) 100 OxyMask 10 11/17/20 11:30 OxyMask 10 11/17/20 11:20 19 108/71 (83) 100 OxyMask 10 11/17/20 11:15 OxyMask 10 11/17/20 11:10 16 87/57 (67) 100 OxyMask 10 11/17/20 11:00 OxyMask 10 11/17/20 11:00 36.1 16 84/61 (69) 100 OxyMask 10 I & O 11/18/20 07:00 Intake Total 1665 ml Output Total 1250 ml Balance 415 ml Laboratory Tests Test 11/18/20 05:19 11/18/20 06:49 Range/Units Hemoglobin 8.6 L 11.5-16.0 g/dL Hematocrit 26 L 35-52 % Glucometer 230 H 70-110 MG/DL LLE--dressing intact. Intact DF and PF of toes and ankle with intact sensation to light touch throughout s/p L hip bipolar PT/OT FAUSTINO REAVES MD Nov 18, 2020 08:03
[2020-11-18] MEDS: DOCUSATE SODIUM 100 MG (COLACE) CAP PO SCH ×2 (08:54→22:11)
[2020-11-18] MEDS: ALLOPURINOL 100 MG (ZYLOPRIM) TAB PO SCH (08:54)
[2020-11-18] MEDS: ENOXAPARIN 30 MG/0.3 ML (LOVENOX) SYR SC SCH ×2 (08:54→22:10)
[2020-11-18] MEDS: LOSARTAN 100 MG (COZAAR) TABLET PO SCH (08:54)
[2020-11-18] MEDS: SENNOSIDES 8.6 MG (SENOKOT) TAB PO SCH ×2 (08:54→22:11)
[2020-11-18] MEDS: amLODIPine 5 MG (NORVASC) TAB PO SCH (08:54)
[2020-11-18] MEDS: PANTOPRAZOLE 40 MG (PROTONIX) TAB PO SCH (08:55)
[2020-11-18] MEDS: ATENOLOL 25 MG (TENORMIN) TAB PO SCH (08:55)
[2020-11-18] MEDS: OXYBUTYNIN (DITROPAN) 5 MG TAB PO SCH ×2 (08:55→22:11)
[2020-11-18] MEDS ORDERED: SENNA W/DOCUSATE (SENOKOT S) TABLET PO SCH (09:00)
[2020-11-18] MEDS: inSUlin (REGULAR) HUMAN 1 UNIT/0.01 ML (CHARGE PER UNIT) SC SCH ×3 (09:18→17:19)
--- NOTE | 2020-11-18 10:22 | Anesthesia-General Post-Op ---
General Patient Condition Mental Status/LOC: Same as Preop Cardiovascular: Satisfactory Nausea/Vomiting: Absent Respiratory: Satisfactory Pain: Controlled Complications: Absent Post Op Complications Complications None Follow Up Care/Instructions Patient Instructions None needed. Anesthesia/Patient Condition Patient Condition Patient is doing well, no complaints, stable vital signs, no apparent adverse anesthesia problems. No complications reported per nursing. JUAN CARLOS ALY CRNA Nov 18, 2020 10:22
[2020-11-18 12:00] VITALS: BP 128/82
--- NOTE | 2020-11-18 12:00 | Physical Therapy Daily Note ---
PT Daily Note-Current Subjective Patient is very confused and is having difficulty tracking. Easily distracted. Pain Numeric Pain Scale: 10-Worst Possible Pain Location: Left Location Body Site: Hip Comment: FLACC Mental Status Patient Orientation: Confused Attachments: SCD's, Leiva Catheter Transfers SCALE: Activities may be completed with or without assistive devices. 0-Zlkrkjghii-gikptky completes the activity by him/herself with no assistance from a helper. 5-Set-up or Clean-up Assistance-helper sets up or cleans up; patient completes activity. [place] assists only prior to or following the activity. 4-Supervision or Touching Assistance-helper provides verbal cues and/or touching/steadying and/or contact guard assistance as patient completes activity. Assistance may be provided throughout the activity or intermittently. 3-Partial/Moderate Assistance-helper does LESS THAN HALF the effort. [place] lifts, holds or supports trunk or limbs, but provides less than half the effort. 2-Substantial/Maximal Assistance-helper does MORE THAN HALF the effort. [place] lifts or holds trunk or limbs and provides more than half the effort. 7-Ruqoiqdxa-lcfcxp does ALL the effort. Patient does none of the effort to complete the activity. Or, the assistance of 2 or more helpers is required for the patient to complete the activity. If activity was not attempted, code reason: 7-Patient Refused. 9-Not Applicable-not attempted and the patient did not perform the activity before the current illness, exacerbation or injury. 10-Not Attempted due to Environmental Limitations-(lack of equipment, weather restraints, etc.). 88-Not Attempted due to Medical Conditions or Safety Concerns. Sit to Lying (QC): 1 (x 2) Lying to Sitting/Side of Bed(Q: 1 (x 2 with max assist to maintain sitting EOB) Weight Bearing Right Lower Extremity: Right Full Weight Bearing Left Lower Extremity: Left Partial Weight Bearing Exercises Supine Ex: Heel Slides (with resistance due to pain) Supine Reps: 12 Seated Therapy Exercises: Long arc quads Seated Reps: 12 (AAROM) Assessment Patient is very resistive to all mobility and AAROM bilateral LE. Patient very confused. PT Short Term Goals Short Term Goals Time Frame: Dec 01, 2020 Roll Left & Right: 3 Sit to lyin Lying to sitting on side of be: 3 Sit to stand: 3 Chair/zoa-zg-ejkqx transfer: 2 Toilet transfer: 2 PT Assisted Goals Reefer Engineer Goals PT Assisted Goals Time Frame: Dec 22, 2020 Roll Left & Right (QC): 4 Sit to Lying (QC): 4 Lying-Sitting on Side/Bed(QC): 4 Sit to Stand (QC): 4 Chair/Wcr-ad-Ngicr Xfer(QC): 4 Toilet Transfer (QC): 4 Does the Patient Walk: No and Walking Goal IS indicated Walk 10 feet (QC): 2 PT Plan Treatment/Plan Treatment Plan: Continue Plan of Care Treatment Plan: Bed Mobility, Education, Functional Activity Ruthie, Functional Strength, Group Therapy, Gait, Safety, Therapeutic Exercise, Transfers Treatment Duration: Jan 26, 2021 Frequency: 11 times per week Estimated Hrs Per Day: .25 hour per day Patient and/or Family Agrees t: Yes Time/GCodes Time In: 1112 Time Out: 1126 Total Billed Treatment Time: 13 Total Billed Treatment 1 visit EX 13 min PANKAJ WELLER PT Nov 18, 2020 12:00
--- NOTE | 2020-11-18 12:01 | Occupational Therapy Eval ---
OT Evaluation-General/PLF Medical Diagnosis Admission Date Nov 17, 2020 at 07:02 Medical Diagnosis: Left CHALINO Onset Date: Nov 16, 2020 Therapy Diagnosis Therapy Diagnosis: decreased ADL status Height/Weight Height (Feet): 5 Height (Inches): 6.00 Weight (Pounds): 220 Weight (Ounces): 10.0 Precautions Precautions/Isolations: Fall Prevention, Standard Precautions Comments hip precautions Weight Bear Status Weight Bearing Restriction: Partial Weight Bearing Location Restriction: L LE Referral Physician: Dr. Villa Referral Reason: Evaluation/Treatment Medical History Pertinent Medical History: Arthritis, CAD, CVA, DM, HTN, Hypothroidism, [place], Neuropathy Current History 11/17/20 L hip hardware removal with conversion to bipolar replacement Social History Home: [facility] Current Living Status: Alone ADL-Prior Level of Function SCALE: Activities may be completed with or without assistive devices. 5-Bnumggpuzt-pljqqfi completes the activity by him/herself with no assistance from a helper. 5-Set-up or Clean-up Assistance-helper sets up or cleans up; patient completes activity. [place] assists only prior to or following the activity. 4-Supervision or Touching Assistance-helper provides verbal cues and/or touching/steadying and/or contact guard assistance as patient completes activity. Assistance may be provided throughout the activity or intermittently. 3-Partial/Moderate Assistance-helper does LESS THAN HALF the effort. [place] lifts, holds or supports trunk or limbs, but provides less than half the effort. 2-Substantial/Maximal Assistance-helper does MORE THAN HALF the effort. [place] lifts or holds trunk or limbs and provides more than half the effort. 6-Mgrgrfhdo-lzwybm does ALL the effort. Patient does none of the effort to complete the activity. Or, the assistance of 2 or more helpers is required for the patient to complete the activity. If activity was not attempted, code reason: 7-Patient Refused. 9-Not Applicable-not attempted and the patient did not perform the activity before the current illness, exacerbation or injury. 10-Not Attempted due to Environmental Limitations-(lack of equipment, weather restraints, etc.). 88-Not Attempted due to Medical Conditions or Safety Concerns. ADL PLOF Comments Pt unable to provide information on how much assistance she needed with ADLs at [facility]. Self Care: Unknown Functional Cognition: Independent OT Current Status Subjective Pt in bed, agreeable to OT tx. Pt easily distracted throughout tx, when asked a question, she would either not answer or discuss previous topics. Mental Status/Objective Patient Orientation: Person, Confused, M[place] Current Glasses/Contacts: Yes Hearing Aids: Yes Dentures/Partials: No Hand Dominance: Right Upper Extremity ROM WFL, BUE shoulder flexion to approx 130 degrees. Upper Extremity Coordination WFL Upper Extremity Sensation WFL Upper Extremity Strength grossly 3+/5 BUEs ADL-Treatment Eating (QC): 5 (set up assistance per clincial judgment) Oral Hygiene (QC): 3 (Min A, assistance with holding basin and moderate verbal cues for sequencing.) Lower Body Dressing (QC): 1 (based on clincial judgment) On/Off Footwear (QC): 1 (based on clincial judgment) Toileting Hygiene (QC): 1 (based on clincial judgment) Other Treatments Pt laying in bed, agreeable to OT evaluation and tx. Pt combed hair with min A (assist at back of head), brushed teeth with min A overall (mod verbal cues). She washed her face with set up, perseveration with task requiring cue for termination. Pt able to take drink of tea independently, reaching for cup on tray table and placing cup back onto the table afterwards. Post tx, pt in bed, call light in reach and all needs met. Education OT Patient Education: Correct positioning, Modified ADL techniques, Progress toward Goal/Update tx plan, Purpose of tx/functional activities, Rehab process Teaching Recipient: Patient Teaching Methods: Discussion Response to Teaching: Reinforcement Needed OT Jail Goals Jail Goals Time Frame: Dec 03, 2020 Eating (QC): 6 Oral Hygiene (QC): 5 Toileting Hygiene (QC): 3 Shower/Bathe Self (QC): 3 Upper Body Dressing (QC): 4 Lower Body Dressing (QC): 3 On/Off Footwear (QC): 3 Additional Goals: 1-Demonstrate ADL Tasks, 2-Verbalize Understanding, 3- ImproveStrength/[place] 1=Demonstrate adherence to instructed precautions during ADL tasks. 2=Patient will verbalize/demonstrate understanding of assistive devices/modifications for ADL. 3=Patient will improve strength/tolerance for activity to enable patient to perform ADL's. OT Education/Plan Problem List/Assessment Assessment: Decreased Activ Tolerance, Decreased Safety Aware, Decreased UE Strength, Impaired Coordination, Impaired Funct Balance, Impaired I ADL's, Impaired Self-Care Skills Discharge Recommendations Plan/Recommendations: Continue POC Treatment Plan/Plan of Care Patient would benefit from OT for education, treatment and training to promote independence in ADL's, mobility, safety and/or upper extremity function for ADL's. Plan of Care: ADL Retraining, Functional Mobility, UE Funct Exercise/Act Treatment Duration: Dec 03, 2020 Frequency: 5 times per week Estimated Hrs Per Day: .25 hour per day Rehab Potential: Guarded Time/GCodes Start Time: 11:26 Stop Time: 11:43 Total Time Billed (hr/min): 17 Billed Treatment Time 1, HARLEY MAGANA OT Nov 18, 2020 12:01
[2020-11-18] MEDS: inSUlin ASPART (NovoLOG) 1 UNIT/0.01 ML (CHARGE PER UNIT) SC SCH ×3 (12:16→21:31)
[2020-11-18] MEDS: DICLOFENAC 1% GEL 100 GM (VOLTAREN) TUBE TP SCH ×4 (12:18→22:11)
--- NOTE | 2020-11-18 15:03 | Physical Therapy Daily Note ---
PT Daily Note-Current Subjective Patient agrees to exercises Mental Status Patient Orientation: Confused Attachments: Leiva Catheter Transfers SCALE: Activities may be completed with or without assistive devices. 8-Bhcefleamx-lboypgh completes the activity by him/herself with no assistance from a helper. 5-Set-up or Clean-up Assistance-helper sets up or cleans up; patient completes activity. [place] assists only prior to or following the activity. 4-Supervision or Touching Assistance-helper provides verbal cues and/or touching/steadying and/or contact guard assistance as patient completes activity. Assistance may be provided throughout the activity or intermittently. 3-Partial/Moderate Assistance-helper does LESS THAN HALF the effort. [place] lifts, holds or supports trunk or limbs, but provides less than half the effort. 2-Substantial/Maximal Assistance-helper does MORE THAN HALF the effort. [place] lifts or holds trunk or limbs and provides more than half the effort. 3-Cfvhlepeb-ebshpi does ALL the effort. Patient does none of the effort to complete the activity. Or, the assistance of 2 or more helpers is required for the patient to complete the activity. If activity was not attempted, code reason: 7-Patient Refused. 9-Not Applicable-not attempted and the patient did not perform the activity before the current illness, exacerbation or injury. 10-Not Attempted due to Environmental Limitations-(lack of equipment, weather restraints, etc.). 88-Not Attempted due to Medical Conditions or Safety Concerns. Weight Bearing Right Lower Extremity: Right Full Weight Bearing Left Lower Extremity: Left Partial Weight Bearing Exercises Supine Ex: Ankle pumps, Heel Slides, Straight leg raise Supine Reps: 12 (AAROM bilaterally) Assessment Current Status: Poor Progress Patient continues to be very confused. Noted pocketing of food with RN notified. Increase activity. PT Short Term Goals Short Term Goals Time Frame: Dec 01, 2020 Roll Left & Right: 3 Sit to lyin Lying to sitting on side of be: 3 Sit to stand: 3 Chair/rix-tv-ccwyy transfer: 2 Toilet transfer: 2 PT [place] Goals Retirement Goals PT Retirement Goals Time Frame: Dec 22, 2020 Roll Left & Right (QC): 4 Sit to Lying (QC): 4 Lying-Sitting on Side/Bed(QC): 4 Sit to Stand (QC): 4 Chair/Zgq-go-Trefv Xfer(QC): 4 Toilet Transfer (QC): 4 Does the Patient Walk: No and Walking Goal IS indicated Walk 10 feet (QC): 2 PT Plan Treatment/Plan Treatment Plan: Continue Plan of Care Treatment Plan: Bed Mobility, Education, Functional Activity Ruthie, Functional Strength, Group Therapy, Gait, Safety, Therapeutic Exercise, Transfers Treatment Duration: Jan 26, 2021 Frequency: 11 times per week Estimated Hrs Per Day: .25 hour per day Patient and/or Family Agrees t: Yes Time/GCodes Time In: 1448 Time Out: 1500 Total Billed Treatment Time: 12 Total Billed Treatment 1 visit EX 12 min PANKAJ WELLER PT Nov 18, 2020 15:03
[2020-11-18 16:36] VITALS: BP 107/67
[2020-11-18 19:24] VITALS: BP 103/66
[2020-11-18 23:24] VITALS: BP 116/60
[2020-11-19] VITALS (8 sets, daily range): BP systolic 103–147; BP diastolic 58–82
[2020-11-19] MEDS: MULTIVIT W/MINERALS TAB (THERAGRAN M) PO SCH (06:12)
[2020-11-19] MEDS: morphine INJ 4 MG/ML 1 ML (VIAL/SYRINGE) IVP PRN (06:12)
[2020-11-19] MEDS: PANTOPRAZOLE 40 MG (PROTONIX) TAB PO SCH (06:12)
[2020-11-19] MEDS: inSUlin ASPART (NovoLOG) 1 UNIT/0.01 ML (CHARGE PER UNIT) SC SCH ×4 (06:15→21:52)
--- NOTE | 2020-11-19 07:05 | Progress Note ---
Standard Progress Note Progress Notes/Assess & Plan Date Seen by a Provider: Nov 19, 2020 Time Seen by a Provider: 07:04 Progress/Assessment & Plan no complaints radiographs--HW well positioned without fracture Vital Signs Date Time Temp Pulse Resp B/P (MAP) Pulse Ox O2 Delivery O2 Flow Rate FiO2 11/18/20 03:13 36.9 81 18 140/77 (98) 95 Room Air 11/17/20 23:56 36.3 73 18 148/74 (98) 96 Room Air 11/17/20 20:35 Room Air 11/17/20 19:54 35.8 71 20 139/86 (103) 96 Room Air 11/17/20 16:35 35.6 59 18 94/53 (67) 97 Room Air 11/17/20 12:13 Room Air 11/17/20 12:06 35.8 63 18 122/72 (89) 96 Room Air 11/17/20 11:52 Room Air 11/17/20 11:50 36.3 14 119/83 (95) 96 11/17/20 11:43 OxyMask 1 11/17/20 11:40 13 124/80 (95) 99 OxyMask 2 11/17/20 11:30 14 122/78 (93) 100 OxyMask 10 11/17/20 11:30 OxyMask 10 11/17/20 11:20 19 108/71 (83) 100 OxyMask 10 11/17/20 11:15 OxyMask 10 11/17/20 11:10 16 87/57 (67) 100 OxyMask 10 11/17/20 11:00 OxyMask 10 11/17/20 11:00 36.1 16 84/61 (69) 100 OxyMask 10 I & O 11/18/20 07:00 Intake Total 1665 ml Output Total 1250 ml Balance 415 ml Laboratory Tests Test 11/18/20 05:19 11/18/20 06:49 Range/Units Hemoglobin 8.6 L 11.5-16.0 g/dL Hematocrit 26 L 35-52 % Glucometer 230 H 70-110 MG/DL LLE--dressing intact. Intact DF and PF of toes and ankle with intact sensation to light touch throughout s/p L hip bipolar PT/OT Final Diagnosis feels weak Vital Signs Date Time Temp Pulse Resp B/P (MAP) Pulse Ox O2 Delivery O2 Flow Rate FiO2 11/19/20 03:50 37.3 86 18 117/64 (81) 94 Room Air 11/18/20 23:24 36.8 82 18 116/60 (78) 92 Room Air 11/18/20 22:10 Room Air 11/18/20 19:24 36.6 84 20 103/66 (78) 95 Room Air 11/18/20 16:36 37.2 82 18 107/67 (80) 94 Room Air 11/18/20 12:00 37.2 79 18 128/82 (97) 95 Room Air 11/18/20 08:00 Room Air 11/18/20 08:00 36.9 83 18 110/72 (85) 94 Room Air I & O 11/19/20 07:00 Intake Total 1830 ml Output Total 750 ml Balance 1080 ml Laboratory Tests Test 11/18/20 11:55 11/18/20 16:40 11/18/20 20:32 11/19/20 05:45 Range/Units Glucometer 269 H 186 H 147 H 70-110 MG/DL Hemoglobin 7.0 L 11.5-16.0 g/dL Hematocrit 21 L 35-52 % Test 11/19/20 05:47 Range/Units Glucometer 151 H 70-110 MG/DL L hip incision clean and dry. No calf tenderness s/p L hip bipolar 2 Units PRBC PT FAUSTINO REAVES MD Nov 19, 2020 07:05
[2020-11-19] MEDS ORDERED: NS IV 500 ML 500 ML IV SCH (07:15)
[2020-11-19] MEDS: SENNOSIDES 8.6 MG (SENOKOT) TAB PO SCH ×2 (08:43→21:53)
[2020-11-19] MEDS: DOCUSATE SODIUM 100 MG (COLACE) CAP PO SCH ×2 (08:43→21:53)
[2020-11-19] MEDS: DICLOFENAC 1% GEL 100 GM (VOLTAREN) TUBE TP SCH ×4 (08:44→21:53)
[2020-11-19] MEDS: ATENOLOL 25 MG (TENORMIN) TAB PO SCH (08:44)
[2020-11-19] MEDS: ALLOPURINOL 100 MG (ZYLOPRIM) TAB PO SCH (08:44)
[2020-11-19] MEDS: LOSARTAN 100 MG (COZAAR) TABLET PO SCH (08:44)
[2020-11-19] MEDS: amLODIPine 5 MG (NORVASC) TAB PO SCH (08:44)
[2020-11-19] MEDS: OXYBUTYNIN (DITROPAN) 5 MG TAB PO SCH ×2 (08:44→21:53)
[2020-11-19] MEDS: ENOXAPARIN 30 MG/0.3 ML (LOVENOX) SYR SC SCH ×2 (09:07→21:53)
[2020-11-19] MEDS: inSUlin (REGULAR) HUMAN 1 UNIT/0.01 ML (CHARGE PER UNIT) SC SCH ×3 (09:36→17:47)
[2020-11-19] MEDS ORDERED: NS IV 500 ML 500 ML ONE (09:53)
--- NOTE | 2020-11-19 10:21 | Progress Note ---
Subjective Date Seen by a Provider: Nov 19, 2020 Time Seen by a Provider: 06:40 Subjective/Events-last exam Patient awake and communicating well. She doesn't appear to be in any distress. Appetite fair. Objective Exam Vital Signs Date Time Temp Pulse Resp B/P (MAP) Pulse Ox O2 Delivery O2 Flow Rate FiO2 11/19/20 09:59 36.7 89 20 115/63 96 Room Air 11/19/20 08:00 36.8 83 20 122/76 (91) 94 Room Air 11/19/20 03:50 37.3 86 18 117/64 (81) 94 Room Air 11/18/20 23:24 36.8 82 18 116/60 (78) 92 Room Air 11/18/20 22:10 Room Air 11/18/20 19:24 36.6 84 20 103/66 (78) 95 Room Air 11/18/20 16:36 37.2 82 18 107/67 (80) 94 Room Air 11/18/20 12:00 37.2 79 18 128/82 (97) 95 Room Air I & O 11/19/20 07:00 Intake Total 1830 ml Output Total 750 ml Balance 1080 ml Capillary Refill : Less Than 3 Seconds General Appearance: No Apparent Distress Respiratory: Lungs Clear Cardiovascular: Regular Rate, Rhythm Gastrointestinal: soft Extremity: Normal Capillary Refill Skin: Cool, Other (pale) Results Lab Laboratory Tests 11/18/20 11:55: Glucometer 269H 11/18/20 16:40: Glucometer 186H 11/18/20 20:32: Glucometer 147H 11/19/20 05:45: Hemoglobin 7.0L, Hematocrit 21L 11/19/20 05:47: Glucometer 151H Assessment/Plan Assessment/Plan Assess & Plan/Chief Complaint 1. 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 Hypertension -Will add on her amlodipine as deemed necessary 11/19 -BP normotensive currently 3. Diabetes mellitus -Insulin sliding scale 11/19 -Glucose range 147-269 4. Hypercholesterolemia 5. Anemia--post op -2U given today PATRICE RODNEY MD Nov 19, 2020 10:21
--- NOTE | 2020-11-19 10:22 | Physical Therapy Daily Note ---
PT Daily Note-Current Subjective Patient agrees to PT. Mental Status Patient Orientation: Person, Time, Situation Attachments: Leiva Catheter Transfers SCALE: Activities may be completed with or without assistive devices. 8-Wwcqkdnpiu-coracue completes the activity by him/herself with no assistance from a helper. 5-Set-up or Clean-up Assistance-helper sets up or cleans up; patient completes activity. [place] assists only prior to or following the activity. 4-Supervision or Touching Assistance-helper provides verbal cues and/or touching/steadying and/or contact guard assistance as patient completes activity. Assistance may be provided throughout the activity or intermittently. 3-Partial/Moderate Assistance-helper does LESS THAN HALF the effort. [place] lifts, holds or supports trunk or limbs, but provides less than half the effort. 2-Substantial/Maximal Assistance-helper does MORE THAN HALF the effort. [place] lifts or holds trunk or limbs and provides more than half the effort. 5-Vjftzdsre-phtkmf does ALL the effort. Patient does none of the effort to complete the activity. Or, the assistance of 2 or more helpers is required for the patient to complete the activity. If activity was not attempted, code reason: 7-Patient Refused. 9-Not Applicable-not attempted and the patient did not perform the activity before the current illness, exacerbation or injury. 10-Not Attempted due to Environmental Limitations-(lack of equipment, weather restraints, etc.). 88-Not Attempted due to Medical Conditions or Safety Concerns. Roll Left & Right (QC): 2 repositioned to sidelying right with pillow placement behind back and bilateral LE's for comfort and pressure relief Weight Bearing Right Lower Extremity: Right Full Weight Bearing Left Lower Extremity: Left Partial Weight Bearing Gait Training Does the Patient Walk?: No and Walking Goal IS indicated Exercises Supine Ex: Ankle pumps, Heel Slides, Straight leg raise, Hip abd/add Supine Reps: 12 (x 2 sets AAROM) Assessment Patient has critical Hgb and will receive 2 units of PRBC on this date. Bed exercises on this date due to previous statement. PT Short Term Goals Short Term Goals Time Frame: Dec 01, 2020 Roll Left & Right: 3 Sit to lyin Lying to sitting on side of be: 3 Sit to stand: 3 Chair/nkw-sd-uxqrs transfer: 2 Toilet transfer: 2 PT [facility] Goals [employer]ist Goals PT [facility] Goals Time Frame: Dec 22, 2020 Roll Left & Right (QC): 4 Sit to Lying (QC): 4 Lying-Sitting on Side/Bed(QC): 4 Sit to Stand (QC): 4 Chair/Yhe-na-Nduou Xfer(QC): 4 Toilet Transfer (QC): 4 Does the Patient Walk: No and Walking Goal IS indicated Walk 10 feet (QC): 2 PT Plan Treatment/Plan Treatment Plan: Continue Plan of Care Treatment Plan: Bed Mobility, Education, Functional Activity Ruthie, Functional Strength, Group Therapy, Gait, Safety, Therapeutic Exercise, Transfers Treatment Duration: Jan 26, 2021 Frequency: 11 times per week Estimated Hrs Per Day: .25 hour per day Patient and/or Family Agrees t: Yes Time/GCodes Time In: 850 Time Out: 900 Total Billed Treatment Time: 10 Total Billed Treatment 1 visit EX 10 min PANKAJ WELLER PT Nov 19, 2020 10:22
--- NOTE | 2020-11-19 10:26 | Occupational Ther Daily Note ---
OT Current Status-Daily Note Subjective Pt in bed, agreeable to OT tx. Pt states pain is not bad, does not verbalize rating. Nurse states pt to receive blood transfusion today. Mental Status/Objective Patient Orientation: Person ADL-Treatment Therapy Code Descriptions/Definitions Functional [place] Measure: 0=Not Assessed/NA 4=Minimal Assistance 1=Total Assistance 5=Supervision or Setup 2=Maximal Assistance 6=Modified [place] 3=Moderate Assistance 7=Complete IndependenceSCALE: Activities may be completed with or without assistive devices. 0-Jdfjsonnnt-uryvypn completes the activity by him/herself with no assistance from a helper. 5-Set-up or Clean-up Assistance-helper sets up or cleans up; patient completes activity. [place] assists only prior to or following the activity. 4-Supervision or Touching Assistance-helper provides verbal cues and/or touching/steadying and/or contact guard assistance as patient completes activity. Assistance may be provided throughout the activity or intermittently. 3-Partial/Moderate Assistance-helper does LESS THAN HALF the effort. [place] lifts, holds or supports trunk or limbs, but provides less than half the effort. 2-Substantial/Maximal Assistance-helper does MORE THAN HALF the effort. [place] lifts or holds trunk or limbs and provides more than half the effort. 1-Ambvuilzy-fbhjby does ALL the effort. Patient does none of the effort to complete the activity. Or, the assistance of 2 or more helpers is required for the patient to complete the activity. If activity was not attempted, code reason: 7-Patient Refused. 9-Not Applicable-not attempted and the patient did not perform the activity before the current illness, exacerbation or injury. 10-Not Attempted due to Environmental Limitations-(lack of equipment, weather restraints, etc.). 88-Not Attempted due to Medical Conditions or Safety Concerns. Eating (QC): 4 (Assistance required to open containers. Verbal cue to locate juice on table.) Other Treatment Pt sitting up in bed, agreeable to OT tx. Pt required set up assistance with opening containers, then verbal cue to locate juice on table. Pt required increased time with breakfast. In order to increase BUE strength and activity tolerance, pt completed x10 reps overhead press. Pt required moderate verbal and tactile cues to follow instruction (especially with LUE). Post tx, pt in bed, all needs met, call light in reach. Pt continued with breakfast. Education OT Patient Education: Correct positioning, Modified ADL techniques, Progress toward Goal/Update tx plan, Purpose of tx/functional activities, Rehab process Teaching Recipient: Patient Teaching Methods: Discussion Response to Teaching: Verbalize Understanding OT [facility] Goals [facility] Goals Time Frame: Dec 03, 2020 Eating (QC): 6 Oral Hygiene (QC): 5 Toileting Hygiene (QC): 3 Shower/Bathe Self (QC): 3 Upper Body Dressing (QC): 4 Lower Body Dressing (QC): 3 On/Off Footwear (QC): 3 Additional Goals: 1-Demonstrate ADL Tasks, 2-Verbalize Understanding, 3- ImproveStrength/Ruthie 1=Demonstrate adherence to instructed precautions during ADL tasks. 2=Patient will verbalize/demonstrate understanding of assistive devices/modifications for ADL. 3=Patient will improve strength/tolerance for activity to enable patient to perform ADL's. OT Education/Plan Problem List/Assessment Assessment: Decreased Activ Tolerance, Decreased Safety Aware, Decreased UE Strength, Impaired Funct Balance, Impaired I ADL's, Impaired Self-Care Skills Discharge Recommendations Plan/Recommendations: Continue POC Treatment Plan/Plan of Care Patient would benefit from OT for education, treatment and training to promote independence in ADL's, mobility, safety and/or upper extremity function for ADL's. Plan of Care: ADL Retraining, Functional Mobility, UE Funct Exercise/Act Treatment Duration: Dec 03, 2020 Frequency: 5 times per week Estimated Hrs Per Day: .25 hour per day Rehab Potential: Guarded Time/GCodes Start Time: 09:45 Stop Time: 09:55 Total Time Billed (hr/min): 10 Billed Treatment Time 1, ADL HARLEY LOCKE OT Nov 19, 2020 10:26
--- NOTE | 2020-11-19 14:09 | Physical Therapy Daily Note ---
PT Daily Note-Current Subjective Patient agrees to PT. Pain Numeric Pain Scale: 10-Worst Possible Pain Location: Left Location Body Site: Hip Pain Description: Acute Mental Status Patient Orientation: Confused Attachments: Leiva Catheter Transfers SCALE: Activities may be completed with or without assistive devices. 1-Lonmrwjibq-megnsib completes the activity by him/herself with no assistance from a helper. 5-Set-up or Clean-up Assistance-helper sets up or cleans up; patient completes activity. [place] assists only prior to or following the activity. 4-Supervision or Touching Assistance-helper provides verbal cues and/or touching/steadying and/or contact guard assistance as patient completes activity. Assistance may be provided throughout the activity or intermittently. 3-Partial/Moderate Assistance-helper does LESS THAN HALF the effort. [place] lifts, holds or supports trunk or limbs, but provides less than half the effort. 2-Substantial/Maximal Assistance-helper does MORE THAN HALF the effort. [place] lifts or holds trunk or limbs and provides more than half the effort. 7-Vjtytnviw-xfcpkq does ALL the effort. Patient does none of the effort to complete the activity. Or, the assistance of 2 or more helpers is required for the patient to complete the activity. If activity was not attempted, code reason: 7-Patient Refused. 9-Not Applicable-not attempted and the patient did not perform the activity before the current illness, exacerbation or injury. 10-Not Attempted due to Environmental Limitations-(lack of equipment, weather restraints, etc.). 88-Not Attempted due to Medical Conditions or Safety Concerns. Roll Left & Right (QC): 1 (x 2) Sit to Lying (QC): 1 (x 2) Lying to Sitting/Side of Bed(Q: 1 (x 2) Weight Bearing Right Lower Extremity: Right Full Weight Bearing Left Lower Extremity: Left Partial Weight Bearing Assessment Patient sat EOB for 15 min, however, had difficulty with maintaining without assistance. Patient attempted to eat in this position but was unable to complete this task due to poor sitting balance. Dependent of 2 with all mobility. PT Short Term Goals Short Term Goals Time Frame: Dec 01, 2020 Roll Left & Right: 3 Sit to lyin Lying to sitting on side of be: 3 Sit to stand: 3 Chair/hhd-zu-mfeyi transfer: 2 Toilet transfer: 2 PT Care Home Goals Care Home Goals PT Academic Coach Goals Time Frame: Dec 22, 2020 Roll Left & Right (QC): 4 Sit to Lying (QC): 4 Lying-Sitting on Side/Bed(QC): 4 Sit to Stand (QC): 4 Chair/Uel-xo-Ykrga Xfer(QC): 4 Toilet Transfer (QC): 4 Does the Patient Walk: No and Walking Goal IS indicated Walk 10 feet (QC): 2 PT Plan Treatment/Plan Treatment Plan: Continue Plan of Care Treatment Plan: Bed Mobility, Education, Functional Activity Ruthie, Functional Strength, Group Therapy, Gait, Safety, Therapeutic Exercise, Transfers Treatment Duration: Jan 26, 2021 Frequency: 11 times per week Estimated Hrs Per Day: .25 hour per day Patient and/or Family Agrees t: Yes Time/GCodes Time In: 1344 Time Out: 1400 Total Billed Treatment Time: 16 Total Billed Treatment 1 visit FA 16 min PANKAJ WELLER PT Nov 19, 2020 14:09
[2020-11-19 14:31] LABS: HEMOGLOBIN 7.9 g/dL (11.5-16.0)
[2020-11-19] MEDS: PROMETHAZINE INJ 25 MG/ML (PHENERGAN) AMP IVP PRN (15:20)
[2020-11-19] MEDS: TEMAZEPAM 15 MG (RESTORIL) CAP PO PRN (21:53)
[2020-11-20] VITALS (7 sets, daily range): BP systolic 123–151; BP diastolic 65–86
[2020-11-20] MEDS: inSUlin (REGULAR) HUMAN 1 UNIT/0.01 ML (CHARGE PER UNIT) SC SCH ×3 (07:04→17:00)
[2020-11-20] MEDS: PANTOPRAZOLE 40 MG (PROTONIX) TAB PO SCH (07:04)
[2020-11-20] MEDS: inSUlin ASPART (NovoLOG) 1 UNIT/0.01 ML (CHARGE PER UNIT) SC SCH ×4 (07:04→21:56)
[2020-11-20] MEDS: MULTIVIT W/MINERALS TAB (THERAGRAN M) PO SCH (07:04)
[2020-11-20 07:28] LABS: HEMOGLOBIN 7.9 g/dL (11.5-16.0)
[2020-11-20] MEDS: DOCUSATE SODIUM 100 MG (COLACE) CAP PO SCH ×2 (08:29→21:57)
[2020-11-20] MEDS: ALLOPURINOL 100 MG (ZYLOPRIM) TAB PO SCH (08:29)
[2020-11-20] MEDS: OXYBUTYNIN (DITROPAN) 5 MG TAB PO SCH ×2 (08:29→21:57)
[2020-11-20] MEDS: ENOXAPARIN 30 MG/0.3 ML (LOVENOX) SYR SC SCH ×2 (08:29→21:57)
[2020-11-20] MEDS: ATENOLOL 25 MG (TENORMIN) TAB PO SCH (08:29)
[2020-11-20] MEDS: SENNOSIDES 8.6 MG (SENOKOT) TAB PO SCH ×2 (08:29→21:57)
[2020-11-20] MEDS: oxyCODONE/APAP 5/325MG (PERCOCET 5) TABLET PO PRN (08:29)
[2020-11-20] MEDS: LOSARTAN 100 MG (COZAAR) TABLET PO SCH (08:29)
[2020-11-20] MEDS: amLODIPine 5 MG (NORVASC) TAB PO SCH (08:29)
[2020-11-20] MEDS: DICLOFENAC 1% GEL 100 GM (VOLTAREN) TUBE TP SCH ×4 (08:30→21:58)
--- NOTE | 2020-11-20 08:57 | Progress Note ---
Standard Progress Note Progress Notes/Assess & Plan Date Seen by a Provider: Nov 20, 2020 Time Seen by a Provider: 08:56 Progress/Assessment & Plan no complaints radiographs--HW well positioned without fracture Vital Signs Date Time Temp Pulse Resp B/P (MAP) Pulse Ox O2 Delivery O2 Flow Rate FiO2 11/18/20 03:13 36.9 81 18 140/77 (98) 95 Room Air 11/17/20 23:56 36.3 73 18 148/74 (98) 96 Room Air 11/17/20 20:35 Room Air 11/17/20 19:54 35.8 71 20 139/86 (103) 96 Room Air 11/17/20 16:35 35.6 59 18 94/53 (67) 97 Room Air 11/17/20 12:13 Room Air 11/17/20 12:06 35.8 63 18 122/72 (89) 96 Room Air 11/17/20 11:52 Room Air 11/17/20 11:50 36.3 14 119/83 (95) 96 11/17/20 11:43 OxyMask 1 11/17/20 11:40 13 124/80 (95) 99 OxyMask 2 11/17/20 11:30 14 122/78 (93) 100 OxyMask 10 11/17/20 11:30 OxyMask 10 11/17/20 11:20 19 108/71 (83) 100 OxyMask 10 11/17/20 11:15 OxyMask 10 11/17/20 11:10 16 87/57 (67) 100 OxyMask 10 11/17/20 11:00 OxyMask 10 11/17/20 11:00 36.1 16 84/61 (69) 100 OxyMask 10 I & O 11/18/20 07:00 Intake Total 1665 ml Output Total 1250 ml Balance 415 ml Laboratory Tests Test 11/18/20 05:19 11/18/20 06:49 Range/Units Hemoglobin 8.6 L 11.5-16.0 g/dL Hematocrit 26 L 35-52 % Glucometer 230 H 70-110 MG/DL LLE--dressing intact. Intact DF and PF of toes and ankle with intact sensation to light touch throughout s/p L hip bipolar PT/OT Final Diagnosis feeling better Vital Signs Date Time Temp Pulse Resp B/P (MAP) Pulse Ox O2 Delivery O2 Flow Rate FiO2 11/20/20 07:41 36.3 85 20 146/78 (100) 94 Room Air 11/20/20 04:00 36.2 82 20 145/80 (101) 96 Room Air 11/20/20 00:14 36.8 81 20 151/81 (104) 97 11/19/20 20:15 Room Air 11/19/20 19:48 37.1 86 20 133/69 (90) 95 Room Air 11/19/20 15:49 36.4 78 22 147/70 (95) 96 Room Air 11/19/20 12:45 37.0 77 18 120/69 95 Room Air 11/19/20 12:00 37.0 84 20 124/82 (96) 97 Room Air 11/19/20 10:20 37.0 88 20 103/58 96 Room Air 11/19/20 09:59 36.7 89 20 115/63 96 Room Air I & O 11/20/20 07:00 Intake Total 2160 ml Output Total 1910 ml Balance 250 ml Laboratory Tests Test 11/19/20 11:08 11/19/20 14:25 11/19/20 15:52 11/19/20 20:38 Range/Units Glucometer 213 H 146 H 159 H 70-110 MG/DL Hemoglobin 7.9 L 11.5-16.0 g/dL Hematocrit 24 L 35-52 % Test 11/20/20 06:08 11/20/20 07:03 Range/Units Hemoglobin 7.9 L 11.5-16.0 g/dL Hematocrit 24 L 35-52 % Glucometer 143 H 70-110 MG/DL L hip incision clean and dry. No calf tenderness s/p L hip bipolar PT DC [place] likely [place] beginning of week FAUSTINO REAVES MD Nov 20, 2020 08:57
--- NOTE | 2020-11-20 12:04 | Physical Therapy Daily Note ---
PT Daily Note-Current Subjective Patient lying supine in bed upon PT arrival, agreeable to treatment. Patient rates pain at 0/10 at rest. Mental Status Patient Orientation: Person, Place, Situation Attachments: [place] Catheter, IV Transfers SCALE: Activities may be completed with or without assistive devices. 7-Vpjgaizvch-jhqeqso completes the activity by him/herself with no assistance from a helper. 5-Set-up or Clean-up Assistance-helper sets up or cleans up; patient completes activity. [place] assists only prior to or following the activity. 4-Supervision or Touching Assistance-helper provides verbal cues and/or touching/steadying and/or contact guard assistance as patient completes activity. Assistance may be provided throughout the activity or intermittently. 3-Partial/Moderate Assistance-helper does LESS THAN HALF the effort. [place] lifts, holds or supports trunk or limbs, but provides less than half the effort. 2-Substantial/Maximal Assistance-helper does MORE THAN HALF the effort. [place] lifts or holds trunk or limbs and provides more than half the effort. 5-Jrwgiydrt-ltqecp does ALL the effort. Patient does none of the effort to complete the activity. Or, the assistance of 2 or more helpers is required for the patient to complete the activity. If activity was not attempted, code reason: 7-Patient Refused. 9-Not Applicable-not attempted and the patient did not perform the activity before the current illness, exacerbation or injury. 10-Not Attempted due to Environmental Limitations-(lack of equipment, weather restraints, etc.). 88-Not Attempted due to Medical Conditions or Safety Concerns. Roll Left & Right (QC): 2 Sit to Lying (QC): 2 Lying to Sitting/Side of Bed(Q: 2 Sit to Stand (QC): 2 Weight Bearing Right Lower Extremity: Right Full Weight Bearing Left Lower Extremity: Left Partial Weight Bearing Gait Training Does the Patient Walk?: No and Walking Goal IS indicated Exercises Supine Ex: Ankle pumps, Quad Set, Heel Slides, Short Arc Quads, Straight leg raise, Hip abd/add Supine Reps: 20 Treatments Visit, Ex, FA Assessment Current Status: Fair Progress Patient lying supine in bed upon PT arrival, agreeable to treatment however very groggy. Patient performs LE therapeutic exercise as listed above. Patient pe rforms all bed mobility with Max A, however is able to use her UEs more and able to move her left LE minimally. Patient performs sit to stand with max A and is able to perform x 2 reps for 60 seconds and 20 seconds. Patient in bed post treatment with all needs met, nursing notified, call light in reach. PT Short Term Goals Short Term Goals Time Frame: Dec 01, 2020 Roll Left & Right: 3 Sit to lyin Lying to sitting on side of be: 3 Sit to stand: 3 Chair/gcp-yt-tizey transfer: 2 Toilet transfer: 2 PT Lining Caser Goals Lining Caser Goals PT Fpc Goals Time Frame: Dec 22, 2020 Roll Left & Right (QC): 4 Sit to Lying (QC): 4 Lying-Sitting on Side/Bed(QC): 4 Sit to Stand (QC): 4 Chair/Bwr-ot-Sxnry Xfer(QC): 4 Toilet Transfer (QC): 4 Does the Patient Walk: No and Walking Goal IS indicated Walk 10 feet (QC): 2 PT Plan Treatment/Plan Treatment Plan: Continue Plan of Care Treatment Plan: Bed Mobility, Education, Functional Activity Ruthie, Functional Strength, Group Therapy, Gait, Safety, Therapeutic Exercise, Transfers Treatment Duration: Jan 26, 2021 Frequency: 11 times per week Estimated Hrs Per Day: .25 hour per day Patient and/or Family Agrees t: Yes Safety Risks/Education Patient Education: Transfer Techniques, Reviewed Precautions, Safety Issues Teaching Recipient: Patient Teaching Methods: Demonstration, Discussion Response to Teaching: Verbalize Understanding, Reinforcement Needed Time/GCodes Time In: 1046 Time Out: 1110 Total Billed Treatment Time: 24 Total Billed Treatment Visit, ExNazia JOHN A PT Nov 20, 2020 12:03
[2020-11-20] MEDS: TEMAZEPAM 15 MG (RESTORIL) CAP PO PRN (21:57)
[2020-11-21] VITALS (8 sets, daily range): BP systolic 123–155; BP diastolic 68–86
[2020-11-21] MEDS: morphine INJ 4 MG/ML 1 ML (VIAL/SYRINGE) IVP PRN (01:38)
[2020-11-21 04:44] LABS: HEMOGLOBIN 7.6 g/dL (11.5-16.0)
[2020-11-21] MEDS: inSUlin ASPART (NovoLOG) 1 UNIT/0.01 ML (CHARGE PER UNIT) SC SCH ×4 (05:52→20:36)
[2020-11-21] MEDS: MULTIVIT W/MINERALS TAB (THERAGRAN M) PO SCH (05:52)
[2020-11-21] MEDS: inSUlin (REGULAR) HUMAN 1 UNIT/0.01 ML (CHARGE PER UNIT) SC SCH ×3 (06:48→16:23)
[2020-11-21] MEDS: PANTOPRAZOLE 40 MG (PROTONIX) TAB PO SCH (06:48)
[2020-11-21] MEDS: DOCUSATE SODIUM 100 MG (COLACE) CAP PO SCH ×2 (09:15→20:52)
[2020-11-21] MEDS: ALLOPURINOL 100 MG (ZYLOPRIM) TAB PO SCH (09:16)
[2020-11-21] MEDS: LOSARTAN 100 MG (COZAAR) TABLET PO SCH (09:16)
[2020-11-21] MEDS: SENNOSIDES 8.6 MG (SENOKOT) TAB PO SCH ×2 (09:16→20:52)
[2020-11-21] MEDS: ENOXAPARIN 30 MG/0.3 ML (LOVENOX) SYR SC SCH ×2 (09:16→20:52)
[2020-11-21] MEDS: OXYBUTYNIN (DITROPAN) 5 MG TAB PO SCH ×2 (09:16→20:52)
[2020-11-21] MEDS: DICLOFENAC 1% GEL 100 GM (VOLTAREN) TUBE TP SCH ×4 (09:16→20:52)
[2020-11-21] MEDS: ATENOLOL 25 MG (TENORMIN) TAB PO SCH (09:16)
[2020-11-21] MEDS: amLODIPine 5 MG (NORVASC) TAB PO SCH (09:16)
[2020-11-21] MEDS: oxyCODONE/APAP 5/325MG (PERCOCET 5) TABLET PO PRN (09:54)
[2020-11-21] MEDS ORDERED: MAGNESIUM CITRATE 300 ML BTL PO ONE (11:00)
[2020-11-21] MEDS ORDERED: FLEET ENEMA ADULT 1 EA BTL PR PRN (11:00)
[2020-11-21] MEDS ORDERED: NS IV 500 ML 500 ML IV SCH (11:00)
--- NOTE | 2020-11-21 11:04 | Progress Note ---
Standard Progress Note Progress Notes/Assess & Plan Date Seen by a Provider: Nov 21, 2020 Time Seen by a Provider: 11:02 Progress/Assessment & Plan no complaints radiographs--HW well positioned without fracture Vital Signs Date Time Temp Pulse Resp B/P (MAP) Pulse Ox O2 Delivery O2 Flow Rate FiO2 11/18/20 03:13 36.9 81 18 140/77 (98) 95 Room Air 11/17/20 23:56 36.3 73 18 148/74 (98) 96 Room Air 11/17/20 20:35 Room Air 11/17/20 19:54 35.8 71 20 139/86 (103) 96 Room Air 11/17/20 16:35 35.6 59 18 94/53 (67) 97 Room Air 11/17/20 12:13 Room Air 11/17/20 12:06 35.8 63 18 122/72 (89) 96 Room Air 11/17/20 11:52 Room Air 11/17/20 11:50 36.3 14 119/83 (95) 96 11/17/20 11:43 OxyMask 1 11/17/20 11:40 13 124/80 (95) 99 OxyMask 2 11/17/20 11:30 14 122/78 (93) 100 OxyMask 10 11/17/20 11:30 OxyMask 10 11/17/20 11:20 19 108/71 (83) 100 OxyMask 10 11/17/20 11:15 OxyMask 10 11/17/20 11:10 16 87/57 (67) 100 OxyMask 10 11/17/20 11:00 OxyMask 10 11/17/20 11:00 36.1 16 84/61 (69) 100 OxyMask 10 I & O 11/18/20 07:00 Intake Total 1665 ml Output Total 1250 ml Balance 415 ml Laboratory Tests Test 11/18/20 05:19 11/18/20 06:49 Range/Units Hemoglobin 8.6 L 11.5-16.0 g/dL Hematocrit 26 L 35-52 % Glucometer 230 H 70-110 MG/DL LLE--dressing intact. Intact DF and PF of toes and ankle with intact sensation to light touch throughout s/p L hip bipolar PT/OT Final Diagnosis no complaints Vital Signs Date Time Temp Pulse Resp B/P (MAP) Pulse Ox O2 Delivery O2 Flow Rate FiO2 11/21/20 09:00 Room Air 11/21/20 07:45 37.1 77 20 126/69 (88) 94 Room Air 11/21/20 04:15 36.6 76 19 151/86 (107) 97 Room Air 11/20/20 23:54 36.8 80 17 150/86 (107) 97 Room Air 11/20/20 20:30 Room Air 11/20/20 19:15 36.9 75 16 135/84 (101) 96 Room Air 11/20/20 15:44 36.8 82 18 135/84 (101) 94 Room Air 11/20/20 12:16 Room Air 11/20/20 11:42 36.4 74 16 123/65 (84) 95 Room Air I & O 11/21/20 07:00 Intake Total 470 ml Output Total 650 ml Balance -180 ml Laboratory Tests Test 11/20/20 15:50 11/20/20 21:02 11/21/20 04:25 11/21/20 05:51 Range/Units Glucometer 182 H 138 H 140 H 70-110 MG/DL Hemoglobin 7.6 L 11.5-16.0 g/dL Hematocrit 23 L 35-52 % Test 11/21/20 10:54 Range/Units Glucometer 190 H 70-110 MG/DL L hip incision without erythema or warmth no calf tenderness s/p L hip bipolar with anemia secondary to surgical blood loss PT 1Unit of PRBC due to her severe cardiac dz DC to SNF tomorrow? FAUSTINO REAVES MD Nov 21, 2020 11:04
[2020-11-21] MEDS ORDERED: MECLIZINE 25 MG (ANTIVERT) TAB ONE (18:10)
[2020-11-21] MEDS ORDERED: MECLIZINE 25 MG (ANTIVERT) TAB PO PRN (18:15)
[2020-11-21] MEDS: TEMAZEPAM 15 MG (RESTORIL) CAP PO PRN (20:52)
[2020-11-22] VITALS: BP 115/73
[2020-11-22 04:11] VITALS: BP 144/80
[2020-11-22] MEDS: inSUlin ASPART (NovoLOG) 1 UNIT/0.01 ML (CHARGE PER UNIT) SC SCH ×4 (05:52→21:00)
[2020-11-22] MEDS: MULTIVIT W/MINERALS TAB (THERAGRAN M) PO SCH (06:39)
[2020-11-22] MEDS: inSUlin (REGULAR) HUMAN 1 UNIT/0.01 ML (CHARGE PER UNIT) SC SCH ×3 (06:39→16:30)
[2020-11-22] MEDS: PANTOPRAZOLE 40 MG (PROTONIX) TAB PO SCH (06:39)
--- NOTE | 2020-11-22 07:05 | Progress Note ---
Subjective Date Seen by a Provider: Nov 22, 2020 Time Seen by a Provider: 06:30 Subjective/Events-last exam Patient was resting comfortably this morning. Her main concern is constipation. She was stood up yesterday with physical therapy. Objective Exam Vital Signs Date Time Temp Pulse Resp B/P (MAP) Pulse Ox O2 Delivery O2 Flow Rate FiO2 11/22/20 04:11 37.2 80 17 144/80 (101) 96 Room Air 11/22/20 00:00 36.8 71 18 115/73 (87) 97 Room Air 11/21/20 20:55 Room Air 11/21/20 20:00 36.3 70 16 133/77 (95) 95 Room Air 11/21/20 16:27 36.4 69 18 132/74 95 Room Air 11/21/20 15:35 36.4 68 18 135/79 (97) 97 Room Air 11/21/20 13:13 36.8 74 20 123/68 95 Room Air 11/21/20 12:51 37.2 76 18 155/82 97 Room Air 11/21/20 11:30 36.6 80 18 142/76 (98) 96 Room Air 11/21/20 09:00 Room Air 11/21/20 07:45 37.1 77 20 126/69 (88) 94 Room Air I & O 11/22/20 07:00 Intake Total 1220 ml Output Total 350 ml Balance 870 ml Capillary Refill : Less Than 3 Seconds General Appearance: No Apparent Distress Respiratory: Chest Non Tender Cardiovascular: Regular Rate, Rhythm Results Lab Laboratory Tests 11/21/20 10:54: Glucometer 190H 11/21/20 15:42: Glucometer 136H 11/21/20 20:30: Glucometer 117H 11/22/20 05:29: Glucometer 180H Assessment/Plan Assessment/Plan Assess & Plan/Chief Complaint 1. Failed left hip repair due to hardware -Orthopedics following 08/18 -Postop day #2 08/19 -postop day #3 -Dr Villa ordered 2 U PRBC for hg of 7.0 11/22/2020 -Possibly to inpatient rehabilitation today 2. Hypertension -Will add on her amlodipine as deemed necessary 11/19 -BP normotensive currently 3. Diabetes mellitus -Insulin sliding scale 11/19 -Glucose range 147-269 11/22/2020 -Currently insulin given at mealtimes. Will eventually give Lantus in the evening as she improves with activity 4. Hypercholesterolemia 5. Anemia--post op (added 11/19) -2U given today 11/22/2020 -HG stable 7.6 6. Constipation - hx/o diabetic gastroparesis PATRICE RODNEY MD Nov 22, 2020 07:05
[2020-11-22 08:00] VITALS: BP 135/73
--- NOTE | 2020-11-22 08:06 | Progress Note ---
Standard Progress Note Progress Notes/Assess & Plan Date Seen by a Provider: Nov 22, 2020 Time Seen by a Provider: 08:05 Progress/Assessment & Plan no complaints radiographs--HW well positioned without fracture Vital Signs Date Time Temp Pulse Resp B/P (MAP) Pulse Ox O2 Delivery O2 Flow Rate FiO2 11/18/20 03:13 36.9 81 18 140/77 (98) 95 Room Air 11/17/20 23:56 36.3 73 18 148/74 (98) 96 Room Air 11/17/20 20:35 Room Air 11/17/20 19:54 35.8 71 20 139/86 (103) 96 Room Air 11/17/20 16:35 35.6 59 18 94/53 (67) 97 Room Air 11/17/20 12:13 Room Air 11/17/20 12:06 35.8 63 18 122/72 (89) 96 Room Air 11/17/20 11:52 Room Air 11/17/20 11:50 36.3 14 119/83 (95) 96 11/17/20 11:43 OxyMask 1 11/17/20 11:40 13 124/80 (95) 99 OxyMask 2 11/17/20 11:30 14 122/78 (93) 100 OxyMask 10 11/17/20 11:30 OxyMask 10 11/17/20 11:20 19 108/71 (83) 100 OxyMask 10 11/17/20 11:15 OxyMask 10 11/17/20 11:10 16 87/57 (67) 100 OxyMask 10 11/17/20 11:00 OxyMask 10 11/17/20 11:00 36.1 16 84/61 (69) 100 OxyMask 10 I & O 11/18/20 07:00 Intake Total 1665 ml Output Total 1250 ml Balance 415 ml Laboratory Tests Test 11/18/20 05:19 11/18/20 06:49 Range/Units Hemoglobin 8.6 L 11.5-16.0 g/dL Hematocrit 26 L 35-52 % Glucometer 230 H 70-110 MG/DL LLE--dressing intact. Intact DF and PF of toes and ankle with intact sensation to light touch throughout s/p L hip bipolar PT/OT Final Diagnosis no compaints Vital Signs Date Time Temp Pulse Resp B/P (MAP) Pulse Ox O2 Delivery O2 Flow Rate FiO2 11/22/20 04:11 37.2 80 17 144/80 (101) 96 Room Air 11/22/20 00:00 36.8 71 18 115/73 (87) 97 Room Air 11/21/20 20:55 Room Air 11/21/20 20:00 36.3 70 16 133/77 (95) 95 Room Air 11/21/20 16:27 36.4 69 18 132/74 95 Room Air 11/21/20 15:35 36.4 68 18 135/79 (97) 97 Room Air 11/21/20 13:13 36.8 74 20 123/68 95 Room Air 11/21/20 12:51 37.2 76 18 155/82 97 Room Air 11/21/20 11:30 36.6 80 18 142/76 (98) 96 Room Air 11/21/20 09:00 Room Air I & O 11/22/20 07:00 Intake Total 1220 ml Output Total 350 ml Balance 870 ml Laboratory Tests Test 11/21/20 10:54 11/21/20 15:42 11/21/20 20:30 11/22/20 05:29 Range/Units Glucometer 190 H 136 H 117 H 180 H 70-110 MG/DL LLE--dressing intact no calf tenderness s/p L hip bipolar DC to IRU vs SNF FAUSTINO REAVES MD Nov 22, 2020 08:06
[2020-11-22 08:33] LABS: HEMOGLOBIN 8.8 g/dL (11.5-16.0)
[2020-11-22] MEDS: LOSARTAN 100 MG (COZAAR) TABLET PO SCH (09:16)
[2020-11-22] MEDS: SENNOSIDES 8.6 MG (SENOKOT) TAB PO SCH ×2 (09:16→21:04)
[2020-11-22] MEDS: OXYBUTYNIN (DITROPAN) 5 MG TAB PO SCH ×2 (09:16→21:04)
[2020-11-22] MEDS: METOCLOPRAMIDE 5 MG (REGLAN) TAB PO SCH ×4 (09:16→21:04)
[2020-11-22] MEDS: amLODIPine 5 MG (NORVASC) TAB PO SCH (09:16)
[2020-11-22] MEDS: ALLOPURINOL 100 MG (ZYLOPRIM) TAB PO SCH (09:16)
[2020-11-22] MEDS: DOCUSATE SODIUM 100 MG (COLACE) CAP PO SCH ×2 (09:16→21:04)
[2020-11-22] MEDS: ATENOLOL 25 MG (TENORMIN) TAB PO SCH (09:16)
[2020-11-22] MEDS: ENOXAPARIN 30 MG/0.3 ML (LOVENOX) SYR SC SCH ×2 (09:18→21:04)
[2020-11-22] MEDS: DICLOFENAC 1% GEL 100 GM (VOLTAREN) TUBE TP SCH ×4 (09:19→21:04)
--- NOTE | 2020-11-22 11:52 | Physical Therapy Daily Note ---
PT Daily Note-Current Subjective Patient agrees to PT. Transfers SCALE: Activities may be completed with or without assistive devices. 1-Twbnxifvfp-iiwbbzm completes the activity by him/herself with no assistance from a helper. 5-Set-up or Clean-up Assistance-helper sets up or cleans up; patient completes activity. [place] assists only prior to or following the activity. 4-Supervision or Touching Assistance-helper provides verbal cues and/or touching/steadying and/or contact guard assistance as patient completes activity. Assistance may be provided throughout the activity or intermittently. 3-Partial/Moderate Assistance-helper does LESS THAN HALF the effort. [place] lifts, holds or supports trunk or limbs, but provides less than half the effort. 2-Substantial/Maximal Assistance-helper does MORE THAN HALF the effort. [place] lifts or holds trunk or limbs and provides more than half the effort. 2-Woqqxfrgi-zcptik does ALL the effort. Patient does none of the effort to complete the activity. Or, the assistance of 2 or more helpers is required for the patient to complete the activity. If activity was not attempted, code reason: 7-Patient Refused. 9-Not Applicable-not attempted and the patient did not perform the activity before the current illness, exacerbation or injury. 10-Not Attempted due to Environmental Limitations-(lack of equipment, weather restraints, etc.). 88-Not Attempted due to Medical Conditions or Safety Concerns. Lying to Sitting/Side of Bed(Q: 2 Sit to Stand (QC): 1 (x 2) Chair/Krg-co-Dmljo Xfer(QC): 1 (x 2) Weight Bearing Right Lower Extremity: Right Full Weight Bearing Left Lower Extremity: Left Partial Weight Bearing Exercises Seated Therapy Exercises: Ankle pumps, Long arc quads, Hip flexion, Glut set Seated Reps: 15 (3 sets) Assessment Patient dependent of 2 with sit to stand and SPT bed to recliner. Patient has difficulty with PWB left LE. PT Short Term Goals Short Term Goals Time Frame: Dec 01, 2020 Roll Left & Right: 3 Sit to lyin Lying to sitting on side of be: 3 Sit to stand: 3 Chair/jej-pf-gtavv transfer: 2 Toilet transfer: 2 PT Chcf Goals Chcf Goals PT Microstrategy Architect Developer Goals Time Frame: Dec 22, 2020 Roll Left & Right (QC): 4 Sit to Lying (QC): 4 Lying-Sitting on Side/Bed(QC): 4 Sit to Stand (QC): 4 Chair/Gwk-vq-Rszbs Xfer(QC): 4 Toilet Transfer (QC): 4 Does the Patient Walk: No and Walking Goal IS indicated Walk 10 feet (QC): 2 PT Plan Treatment/Plan Treatment Plan: Continue Plan of Care Treatment Plan: Bed Mobility, Education, Functional Activity Ruthie, Functional Strength, Group Therapy, Gait, Safety, Therapeutic Exercise, Transfers Treatment Duration: Jan 26, 2021 Frequency: 11 times per week Estimated Hrs Per Day: .25 hour per day Patient and/or Family Agrees t: Yes Time/GCodes Time In: 1131 Time Out: 1142 Total Billed Treatment Time: 11 Total Billed Treatment 1 visit EX 11 min PANKAJ WELLER PT Nov 22, 2020 11:52
[2020-11-22 12:00] VITALS: BP 126/67
--- NOTE | 2020-11-22 13:52 | Physical Therapy Daily Note ---
PT Daily Note-Current Subjective Patient agrees to back to bed. Mental Status Patient Orientation: Person, Time, Situation Transfers SCALE: Activities may be completed with or without assistive devices. 2-Zvibfhsska-xqhfypc completes the activity by him/herself with no assistance fr om a helper. 5-Set-up or Clean-up Assistance-helper sets up or cleans up; patient completes activity. [place] assists only prior to or following the activity. 4-Supervision or Touching Assistance-helper provides verbal cues and/or touching/steadying and/or contact guard assistance as patient completes activity. Assistance may be provided throughout the activity or intermittently. 3-Partial/Moderate Assistance-helper does LESS THAN HALF the effort. [place] lifts, holds or supports trunk or limbs, but provides less than half the effort. 2-Substantial/Maximal Assistance-helper does MORE THAN HALF the effort. [place] lifts or holds trunk or limbs and provides more than half the effort. 9-Xcysasiam-jthdpm does ALL the effort. Patient does none of the effort to complete the activity. Or, the assistance of 2 or more helpers is required for the patient to complete the activity. If activity was not attempted, code reason: 7-Patient Refused. 9-Not Applicable-not attempted and the patient did not perform the activity before the current illness, exacerbation or injury. 10-Not Attempted due to Environmental Limitations-(lack of equipment, weather restraints, etc.). 88-Not Attempted due to Medical Conditions or Safety Concerns. Sit to Lying (QC): 2 Lying to Sitting/Side of Bed(Q: 2 Sit to Stand (QC): 2 Weight Bearing Right Lower Extremity: Right Full Weight Bearing Left Lower Extremity: Left Partial Weight Bearing Exercises Seated Therapy Exercises: Ankle pumps, Long arc quads Seated Reps: 12 Assessment Patient request bed leija use. Patient tolerates minimal activity. Did improve with sit to stand to FWW, however, difficulty with maintaining PWB left LE. Nursing notified of patient on bed leija. PT Short Term Goals Short Term Goals Time Frame: Dec 01, 2020 Roll Left & Right: 3 Sit to lyin Lying to sitting on side of be: 3 Sit to stand: 3 Chair/kpx-ss-jyhzz transfer: 2 Toilet transfer: 2 PT Correction Goals Correction Goals PT Coke Burner Goals Time Frame: Dec 22, 2020 Roll Left & Right (QC): 4 Sit to Lying (QC): 4 Lying-Sitting on Side/Bed(QC): 4 Sit to Stand (QC): 4 Chair/Xax-ak-Debfm Xfer(QC): 4 Toilet Transfer (QC): 4 Does the Patient Walk: No and Walking Goal IS indicated Walk 10 feet (QC): 2 PT Plan Treatment/Plan Treatment Plan: Continue Plan of Care Treatment Plan: Bed Mobility, Education, Functional Activity Ruthie, Functional Strength, Group Therapy, Gait, Safety, Therapeutic Exercise, Transfers Treatment Duration: Jan 26, 2021 Frequency: 11 times per week Estimated Hrs Per Day: .25 hour per day Patient and/or Family Agrees t: Yes Time/GCodes Time In: 1315 Time Out: 1325 Total Billed Treatment Time: 10 Total Billed Treatment 1 visit FA 10 min PANKAJ WELLER PT Nov 22, 2020 13:52
[2020-11-22 16:02] VITALS: BP 141/81
[2020-11-22 19:18] VITALS: BP 121/63
[2020-11-22] MEDS: oxyCODONE/APAP 5/325MG (PERCOCET 5) TABLET PO PRN (22:21)
[2020-11-23] VITALS: BP 127/80
--- NOTE | 2020-11-23 01:06 | DISCHARGE SUMMARY ---
DATE OF SERVICE: DIAGNOSES: 1. Left femoral neck fracture with hardware failure. 2. Anemia secondary to surgical blood loss. 3. Coronary artery disease. 4. Hypertension. 5. Diabetes. PROCEDURE: Left hip bipolar replacement. SUMMARY: The patient is a 65-year-old female who was admitted the day of conversion to a left bipolar replacement, which she underwent without complications. Postoperatively, she did well. Her hemoglobin dropped to 7 and she received 2 units packed red blood cells. She was progressing well with physical therapy at the time of her discharge. In addition, wound was clean and dry. She had no calf tenderness. Negative Homans sign. CONDITION AT DISCHARGE: Good. DISCHARGE DIET: Regular. FOLLOWUP: Followup is in two weeks. DISCHARGE ACTIVITIES: Weightbearing as tolerated in left lower extremity with a walker. DISCHARGE DISPOSITION: Transferred to senior care facility versus acute rehabilitation unit. Job ID: [id number] DocumentID: [id number] Dictated Date: 11/22/2020 08:08:29 Communications Associate Date: 11/23/2020 01:05:43 Dictated By: FAUSTINO REAVES MD
[2020-11-23 04:00] VITALS: BP 107/65
[2020-11-23] MEDS: MULTIVIT W/MINERALS TAB (THERAGRAN M) PO SCH ×2 (05:33→09:12)
[2020-11-23] MEDS: inSUlin ASPART (NovoLOG) 1 UNIT/0.01 ML (CHARGE PER UNIT) SC SCH ×2 (05:33→11:37)
[2020-11-23] MEDS: PANTOPRAZOLE 40 MG (PROTONIX) TAB PO SCH (06:41)
[2020-11-23 07:42] VITALS: BP 131/76
--- NOTE | 2020-11-23 08:12 | D/C HH Face to Face Order ---
D/C Face to Face Orders Reconcile Patient Problems Problems Reviewed?: Yes Instructions for Patient [facility], Patient Instructions/FollowUp: two weeks Physician to follow Patient: two weeks Discharge Diet for Home: Regular Diet Patient Data-Allergies,Ht & Wt Patient Allergies: Coded Allergies: codeine (Verified Allergy, Severe, SOA, pt has rec Lortab, Percocet, morphine in the past, 11/17/20) bupropion (Verified Allergy, Mild, 11/16/20) COUGH isosorbide (Verified Allergy, Mild, 11/16/20) COUGH levofloxacin (Verified Allergy, Mild, 11/16/20) COUGH ramipril (Verified Allergy, Mild, 11/16/20) COUGH celecoxib (Unverified Allergy, Unknown, 03/08/15) cinacalcet (Verified Allergy, Unknown, 03/07/20) clarithromycin (Verified Allergy, Unknown, 03/07/20) hydrocodone (Verified Adverse Reaction, Unknown, 11/16/20) HYPOTENSION Height (Feet): 5 Height (Inches): 6.00 Weight (Pounds): 220 Weight (Ounces): 10.0 Home Health Need/Face to Face Date of Face to Face: Nov 22, 2020 Clinical Findings: Generalized weakness and fatigue, Instability, Muscle weakness, Pain with ambulation, Unsteady gait I have seen Pt tnvy-ui-nqiu: Yes Discharged To: SNU Diagnosis/Conditions: left hip bipolar replacement Patient is Homebound due to: Tarik fall risk due to instabilty, Non-weight bearing, Pain w/ambulation Homebound Status Due to the above stated illness, injury or surgical procedure (medical condition or diagnosis) and associated clinical findings, the patient is homebound because of his/her inability to leave home except with aid of a supportive device and/or person AND leaving the home requires a considerable and taxing effort or is medically contraindicated. Pt req the following assistanc: Walker Home Health Nursing Orders Home Health Services Order: Physical Therapy-Evaluate & Treat Home Health Infusion Therapy Line Start Date: Nov 17, 2020 Therapy Orders Therapy Orders: Physical Therapy Therapy Specific Orders: Eval assistive deivces, Teach strategies/cognitive deficits, Teach enviro modifications/safety, Gait training, Increase strength/endurance, Provider maintenance therapy, Restore ROM Certify Stmt I certify that this patient is under my care and that I, a nurse practitioner or a physician; a assistant media planner working with me, had a face to face encounter that - meets the physician face to face encounter requirements with this patient as dated. FAUSTINO REAVES MD Nov 23, 2020 08:12
--- NOTE | 2020-11-23 08:33 | Discharge Inst-Skilled Nursing ---
Discharge Inst-Skilled NF Reconcile Patient Problems Problems Reviewed?: Yes Patient Instructions Patient Problems: left hip Goal: mobility Patient Instructions: fu two weeks Consult/Follow Up/Orders Follow Up Appt.: two weeks Skilled NF Admit to: [facility] Certification ([facility]) I certify that SNF services are required to be given on an inpatient basis because of the above named patient's need for intermediate care on a continuing basis for the conditions(s) for which he/she was receiving inpatient hospital services prior to his/her transfer to the SNF. Alf Facility Order: Nursing Services, Aerial Applicator Pilot-Evaluate & Treat, Physical Therapy-Evaluate & Treat Oxygen Delivery Method: Room Air Discharge Diet: Regular Diet Daily Activity as Tolerated: Yes New & Resume Previous Orders Faustino Reaves Nov 23, 2020 08:31 FAUSTINO REAVES MD Nov 23, 2020 08:33
[2020-11-23] MEDS: DICLOFENAC 1% GEL 100 GM (VOLTAREN) TUBE TP SCH (09:11)
[2020-11-23] MEDS: SENNOSIDES 8.6 MG (SENOKOT) TAB PO SCH (09:12)
[2020-11-23] MEDS: LOSARTAN 100 MG (COZAAR) TABLET PO SCH (09:12)
[2020-11-23] MEDS: DOCUSATE SODIUM 100 MG (COLACE) CAP PO SCH (09:12)
[2020-11-23] MEDS: amLODIPine 5 MG (NORVASC) TAB PO SCH (09:12)
[2020-11-23] MEDS: ALLOPURINOL 100 MG (ZYLOPRIM) TAB PO SCH (09:12)
[2020-11-23] MEDS: METOCLOPRAMIDE 5 MG (REGLAN) TAB PO SCH (09:12)
[2020-11-23] MEDS: ATENOLOL 25 MG (TENORMIN) TAB PO SCH (09:13)
[2020-11-23] MEDS: OXYBUTYNIN (DITROPAN) 5 MG TAB PO SCH (09:13)
[2020-11-23] MEDS: ENOXAPARIN 30 MG/0.3 ML (LOVENOX) SYR SC SCH (09:13)
[2020-11-23] MEDS: inSUlin (REGULAR) HUMAN 1 UNIT/0.01 ML (CHARGE PER UNIT) SC SCH ×2 (09:14→11:37)
[2020-11-23 11:36] VITALS: BP 114/73
[2020-11-23 13:22] VITALS: BP 114/73
== END 2020-11-23 13:22 | disposition home health service (06) | DRG 470 ==
LOC: 4TH 07:02 → SURG 07:03 → EDSTATUS 09:00 → 4TH 11:44
PROVIDERS: ADMIT Orthopaedic Surgery; ATTEND Orthopaedic Surgery
PROC: 0QP704Z Removal of Internal Fixation Device from Left Upper Femur, Open Approach (ICD-10-PCS; 2020-11-17)
PROC: 0SRS0JA Replacement of Left Hip Joint, Femoral Surface with Synthetic Substitute, Uncemented, Open Approach (ICD-10-PCS; principal; 2020-11-17 09:20)
DX: T84.125A Displacement of internal fixation device of left femur, initial encounter (principal); S72.002K Fracture of unspecified part of neck of left femur, subsequent encounter for closed fracture with nonunion; D62 Acute posthemorrhagic anemia; I42.9 Cardiomyopathy, unspecified; I25.10 Atherosclerotic heart disease of native coronary artery without angina pectoris; E11.43 Type 2 diabetes mellitus with diabetic autonomic (poly)neuropathy; K31.84 Gastroparesis; Z79.4 Long term (current) use of insulin; K59.00 Constipation, unspecified; E03.9 Hypothyroidism, unspecified; I10 Essential (primary) hypertension; E78.00 Pure hypercholesterolemia, unspecified; G47.30 Sleep apnea, unspecified; E11.40 Type 2 diabetes mellitus with diabetic neuropathy, unspecified; K21.9 Gastro-esophageal reflux disease without esophagitis; M19.91 Primary osteoarthritis, unspecified site; I25.2 Old myocardial infarction; Z82.49 Family history of ischemic heart disease and other diseases of the circulatory system; Z82.61 Family history of arthritis; Z83.3 Family history of diabetes mellitus; Z79.82 Long term (current) use of aspirin
CPT/HCPCS: 36415; 73501; 82947; 85014; 85018; 86850; 86900; 86901; 86920; 94664

== ENCOUNTER → 2021-09-01 | Outpatient (CLI) | payer MEDICARE, OTHER ==
[~2021-09-01] MED LIST changes: -FENO67CA PO; +FENO67CA14 PO; -MAGN400T8 PO; +MELA5TAB14 PO; +MGX400T PO
--- NOTE | 2021-09-01 12:40 | Diagnostic Imaging Report ---
INDICATION: Right mid humerus pain for several months. Time of Exam: 10:50 AM 2 views of the right humerus demonstrate normal alignment at the shoulder and elbow. Humerus appears intact. Monitoring device is identified in the soft tissues medially at the level of the mid shaft of the humerus. IMPRESSION: No acute abnormality is detected. Dictated by: Dictated on workstation # [id number]
== END ==
LOC: RAD 10:32
PROVIDERS: ATTEND Family Medicine
DX: M79.601 Pain in right arm (principal)
CPT/HCPCS: 73060

== ENCOUNTER 2021-09-24 09:41 | Emergency (ER) | payer MEDICARE, OTHER ==
[~2021-09-24] VITALS: Ht 170 cm; Wt 90.8 kg
[2021-09-24 09:59] LABS: BASOPHILS % (AUTO) 0 % (0-10); EOSINOPHILS # (AUTO) 0.1 10^3/uL (0.0-0.3); LYMPHOCYTES # (AUTO) 1.7 10^3/uL (1.0-4.0)
[2021-09-24 10:00] LABS: EOSINOPHILS % (AUTO) 1 % (0-10); HEMATOCRIT 35 % (35-52); HEMOGLOBIN 12.1 g/dL (11.5-16.0); LYMPHOCYTES % (AUTO) 33 % (12-44); MEAN CORPUSCULAR HEMOGLOBIN 34 pg (25-34); MEAN CORPUSCULAR HGB CONC 35 g/dL (32-36); MEAN CORPUSCULAR VOLUME 98 fL (80-99); MEAN PLATELET VOLUME 11.5 fL (9.0-12.2); MONOCYTES # (AUTO) 0.3 10^3/uL (0.0-1.0); MONOCYTES % (AUTO) 5 % (0-12); NEUTROPHILS # (AUTO) 3.2 10^3/uL (1.8-7.8); NEUTROPHILS % (AUTO) 61 % (42-75); PLATELET COUNT 116 10^3/uL (130-400); WHITE BLOOD COUNT 5.3 10^3/uL (4.3-11.0)
[2021-09-24] MEDS ORDERED: LACTATED RINGERS 1,000 ML IV ONE (10:00)
[2021-09-24] MEDS ORDERED: PROMETHAZINE INJ 25 MG/ML (PHENERGAN) AMP IVP ONE (10:00)
[2021-09-24 10:10] LABS: POTASSIUM 4.8 MMOL/L (3.6-5.0)
[2021-09-24 10:11] LABS: CALCIUM 9.7 MG/DL (8.5-10.1)
[2021-09-24 10:15] LABS: CREATININE SERUM 1.47 MG/DL (0.60-1.30)
[2021-09-24 10:18] LABS: MAGNESIUM 1.6 MG/DL (1.6-2.4)
[2021-09-24] MEDS ORDERED: PROM12.511 PO (12:55)
--- NOTE | 2021-09-24 12:55 | ED General ---
General Chief Complaint: General Problems/Pain Stated Complaint: COVID + Nursing Triage Note: pt arrived via ems to rm 10. with c/o increase soa, n/v, [place], and sore throat. pt reports n/v starting this am. pt tested postived for covid on sunday at [facility]. pt states she is "feeling dry" and requested fluids. Source of Information: Patient Exam Limitations: No Limitations History of Present Illness Date Seen by Provider: Sep 24, 2021 Time Seen by Provider: 09:45 Initial Comments This is 66-year-old woman presents to the emergency room from [facility] with complaints of cough, congestion, headache, sore throat, nausea and vomiting, and difficulty staying hydrated after being diagnosed with COVID-19 5 days ago. She has been symptomatic for over a week. Vital signs are stable. Allergies and Home Medications Allergies Coded Allergies: codeine (Verified Allergy, Severe, SOA, pt has rec Lortab, Percocet, morphine in the past, 11/17/20) bupropion (Verified Allergy, Mild, 11/16/20) COUGH isosorbide (Verified Allergy, Mild, 11/16/20) COUGH levofloxacin (Verified Allergy, Mild, 11/16/20) COUGH ramipril (Verified Allergy, Mild, 11/16/20) COUGH celecoxib (Unverified Allergy, Unknown, 03/08/15) cinacalcet (Verified Allergy, Unknown, 03/07/20) clarithromycin (Verified Allergy, Unknown, 03/07/20) hydrocodone (Verified Adverse Reaction, Unknown, 11/16/20) HYPOTENSION Patient Home Medication List Home Medication List Reviewed: Yes Acetaminophen (Acetaminophen) 500 Mg Tablet, 1,000 MG PO Q6H PRN for PAIN-MILD (1-4) OR TEMPATURE, (Reported) Entered as Reported by: KIKO CABELLO on 11/16/20 0900 Allopurinol (Allopurinol) 100 Mg Tablet, 100 MG PO DAILY, (Reported) Entered as Reported by: АНДРЕЙ MAK on 09/10/20 1148 Amlodipine Besylate (Amlodipine Besylate) 5 Mg Tablet, 5 MG PO DAILY, (Reported) Entered as Reported by: KIKO CABELLO on 11/16/20 0851 Ascorbate Calcium (Vitamin C) 500 Mg Tablet, 500 MG PO BID, (Reported) Entered as Reported by: KIKO CABELLO on 11/16/20 09 Aspirin (Aspirin EC) 81 Mg Tablet.dr, 81 MG PO DAILY, (Reported) Entered as Reported by: АНДРЕЙ MAK on 09/14/20 153 Atenolol (Atenolol) 25 Mg Tablet, 25 MG PO DAILY, (Reported) Entered as Reported by: АНДРЕЙ MAK on 09/10/20 1151 Atorvastatin Calcium (Atorvastatin Calcium) 80 Mg Tablet, 80 MG PO HS, (Reported) Entered as Reported by: АНДРЕЙ MAK on 09/10/20 1148 Clopidogrel Bisulfate (Plavix) 75 Mg Tablet, 75 MG PO DAILY, (Reported) Entered as Reported by: АНДРЕЙ MAK on 09/14/20 153 Diclofenac Sodium (Voltaren Arthritis Pain) 20 Gm Gel..gram., 4 GM TP QID, (Reported) Entered as Reported by: KIKO CABELLO on 11/16/20 09 Docusate Sodium (Colace) 100 Mg Capsule, 100 MG PO BID, (Reported) Entered as Reported by: KIKO CABELLO on 11/16/20 09 Insulin NPH Human Isophane (Novolin N) 100 Unit/1 Ml Vial, 30 UNIT SQ HS, (Reported) Entered as Reported by: KIKO CABELLO on 11/16/20 08 Insulin NPH Human Isophane (Novolin N) 100 Unit/1 Ml Vial, 20 UNIT SQ DAILY, (Reported) Entered as Reported by: KIKO CABELLO on 11/16/20850 Insulin Regular, Human (Humulin R) 1,000 Units/10 Ml Soln, 10 UNITS SQ TIDAC, (Reported) Entered as Reported by: KIKO CABELLO on 11/16/20 08 Losartan Potassium (Losartan Potassium) 100 Mg Tablet, 100 MG PO DAILY, (Reported) Entered as Reported by: АНДРЕЙ MAK on 09/10/20 114 Magnesium Citrate (Magnesium Citrate) 296 Ml Solution, 296 ML PO DAILY PRN for CONSTIPATION-9TH LINE, (Reported) Entered as Reported by: KIKO CABELLO on 11/16/20 09 Meclizine HCl (Meclizine HCl) 25 Mg Tablet, 25 MG PO BID PRN PRN for NAUSEA/VOMITING, (Reported) Entered as Reported by: KIKO CABELLO on 11/16/20 0900 Melatonin (Melatonin) 5 Mg Tablet, 5 MG PO HS, (Reported) Entered as Reported by: АНДРЕЙ MAK on 11/17/20 1307 Metoclopramide HCl (Metoclopramide HCl) 10 Mg Tablet, 10 MG PO BID PRN for NAUSEA/VOMITING-3RD LINE, (Reported) Entered as Reported by: АНДРЕЙ MAK on 09/10/20 1151 Naproxen Sodium (Aleve) 220 Mg Tablet, 220 MG PO Q12H PRN for PAIN-MILD (1-4), (Reported) Entered as Reported by: KIKO CABELLO on 11/16/20 0851 Oxybutynin Chloride (Oxybutynin Chloride ER) 5 Mg Tab.er.24, 5 MG PO DAILY, (Reported) Entered as Reported by: АНДРЕЙ MAK on 03/08/20 1331 Oxycodone HCl/Acetaminophen (Percocet 5-325 mg Tablet) 1 Each Tablet, 1 TAB PO Q4H PRN for PAIN-MODERATE (5-7), (Reported) Entered as Reported by: KIKO CABELLO on 11/16/20 0851 Pantoprazole Sodium (Pantoprazole Sodium) 40 Mg Tablet.dr, 40 MG PO DAILY, (Reported) Entered as Reported by: KIKO CABELLO on 11/16/20 0851 Promethazine HCl (Promethazine HCl) 12.5 Mg Tablet, 12.5 MG PO Q6H PRN for NAUSEA/VOMITING Prescribed by: ISHA LUNDY on 09/24/21 1255 Ranolazine (Ranexa) 1,000 Mg Tab.er.12h, 1,000 MG PO BID, (Reported) Entered as Reported by: CARMELO PETERS on 08/26/18 1218 Sennosides/Docusate Sodium (Stool Softener-Laxative Tablet) 1 Each Tablet, 1 EACH PO BID, (Reported) Entered as Reported by: KIKO CABELLO on 11/16/20 0851 Sertraline HCl (Sertraline HCl) 25 Mg Tablet, 25 MG PO HS, (Reported) Entered as Reported by: АНДРЕЙ MAK on 03/08/20 1331 Review of Systems Review of Systems Constitutional: see HPI EENTM: see HPI Respiratory: see HPI Cardiovascular: no symptoms reported Gastrointestinal: see HPI Genitourinary: no symptoms reported : No Musculoskeletal: no symptoms reported Skin: no symptoms reported Psychiatric/Neurological: No Symptoms Reported Hematologic/Lymphatic: No Symptoms Reported Past [id number]-[id number]-Ynqbyk Hx Patient Social History Tobacco Use?: No Substance use?: No Alcohol Use?: No Pt feels they are or have been: No Immunizations Up To Date Tetanus Booster (TDap): Unknown First/Initial COVID19 Vaccinat: YES Second COVID19 Vaccination Phill: YES Third COVID19 Vaccination Date: YES Seasonal Allergies Seasonal Allergies: No Past Medical History Surgery/Hospitalization HX: PT HAS HX OF LEFT HIP SURGERY STATES SHE HAS 2 PINS IN IT, GALLBLADDER, TOTAL HYST, PMH; TYPE 2 DM, HTN SEE [facility] TRANSFER SHEET Surgeries: Yes (HYSTERECTOMY 1997, LAP. PRIETO 5-6 YRS. AGO, T&A-49 YRS. 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 Sexually Transmitted Disease: No HIV/AIDS: No Genitourinary: Yes (CHRONIC KIDNEY DISEASE) Kidney Stones, Renal Failure (Chronic kidney disease) Gastrointestinal: Yes (GASTROPARESIS) Gastroesophageal Reflux, Chronic Constipation Musculoskeletal: Yes (HISTORY OF FALLS/WEAKNESS) Osteoporosis, Arthritis, Back Injury Endocrine: Yes Diabetes, Insulin dep HEENT: Yes (CHRONIC BLURRINESS OF RT EYE) Chronic Ear Infection Hearing Impairment: Hard of Hearing Cancer: No Psychosocial: Yes Sleep Difficulties Integumentary: Yes (healing cyst removal) Blood Disorders: No Adverse Reaction/Blood Tranf: No Family Medical History Cancer (lung and ovarian) 09 BROTHER, Onset:30's - 40 09 SISTER, Onset:60 years & older Congenital heart disease (mitral valve prolapse) 09 SISTER 09 SISTER Congestive heart failure 03 FATHER, Onset:60 years & older 03 MOTHER, Onset:50's - 60 09 SISTER, Onset:60 years & older Family history: Arthritis 03 MOTHER, Onset:60 years & older Family history: Diabetes mellitus 03 FATHER, Onset:60 years & older 09 SISTER, Onset:50's - 60 Family history: Gastrointestinal disease 03 FATHER, Onset:50's - 60 Hereditary disease (HTN) 09 SISTER, Onset:40's - 50 History of - disorder (Urinary problems) 09 SISTER, Onset:60 years & older 09 SISTER, Onset:20's - 25 History of - respiratory disease (asthma) 09 SISTER Hypercholesterolemia 09 SISTER, Onset:50's - 60 Psychotic disorder (anxiety) 09 SISTER, Onset:30's - 40 Heart Disease Physical Exam Vital Signs Vital Signs - First Documented 09/24/21 09:41 Temp 37.1 Pulse 69 Resp 20 B/P (MAP) 158/101 (120) Pulse Ox 96 O2 Delivery Room Air Capillary Refill : Less Than 3 Seconds Height, Weight, BMI Height: 5'6.00" Weight: 220lbs. 10.0oz. 100.983278ws; 31.00 BMI Method:Estimated General Appearance: No Apparent Distress, WD/WN HEENT: PERRL/EOMI, Normal ENT Inspection, Other (Oropharynx somewhat dry) Neck: Normal Inspection Respiratory: Lungs Clear, Normal Breath Sounds, No Accessory Muscle Use Cardiovascular: Regular Rate, Rhythm, No Edema, No Murmur Gastrointestinal: Normal Bowel Sounds, No Organomegaly, Non Tender Extremity: Normal Inspection, No Pedal Edema Neurologic/Psychiatric: Alert, Oriented x3, No Motor/Sensory Deficits, Normal Mood/Affect, geriatrics physician II-XII Norm as Tested Skin: Normal Color, Warm/Dry Progress/Results/Core Measures Suspected Sepsis SIRS Temperature: Pulse: 69 Respiratory Rate: 20 Laboratory Tests 09/24/21 09:45: White Blood Count 5.3 Blood Pressure 158 /101 Mean: 120 Laboratory Tests 09/24/21 09:45: Creatinine 1.47H, Platelet Count 116L Results/Orders Lab Results Laboratory Tests Test 09/24/21 09:45 Range/Units White Blood Count 5.3 4.3-11.0 10^3/uL Red Blood Count 3.55 L 3.80-5.11 10^6/uL Hemoglobin 12.1 11.5-16.0 g/dL Hematocrit 35 35-52 % Mean Corpuscular Volume 98 80-99 fL Mean Corpuscular Hemoglobin 34 25-34 pg Mean Corpuscular Hemoglobin Concent 35 32-36 g/dL Red Cell Distribution Width 12.6 10.0-14.5 % Platelet Count 116 L 130-400 10^3/uL Mean Platelet Volume 11.5 9.0-12.2 fL Immature Granulocyte % (Auto) 1 % Neutrophils (%) (Auto) 61 42-75 % Lymphocytes (%) (Auto) 33 12-44 % Monocytes (%) (Auto) 5 0-12 % Eosinophils (%) (Auto) 1 0-10 % Basophils (%) (Auto) 0 0-10 % Neutrophils # (Auto) 3.2 1.8-7.8 10^3/uL Lymphocytes # (Auto) 1.7 1.0-4.0 10^3/uL Monocytes # (Auto) 0.3 0.0-1.0 10^3/uL Eosinophils # (Auto) 0.1 0.0-0.3 10^3/uL Basophils # (Auto) 0.0 0.0-0.1 10^3/uL Immature Granulocyte # (Auto) 0.0 0.0-0.1 10^3/uL Percent Immature Platelet Fraction 8.4 H 0.0-7.6 % Sodium Level 139 135-145 MMOL/L Potassium Level 4.8 3.6-5.0 MMOL/L Chloride Level 107 98-107 MMOL/L Carbon Dioxide Level 20 L 21-32 MMOL/L Anion Gap 12 5-14 MMOL/L Blood Urea Nitrogen 23 H 7-18 MG/DL Creatinine 1.47 H 0.60-1.30 MG/DL Estimat Glomerular Filtration Rate 39 BUN/Creatinine Ratio 16 Glucose Level 224 H 70-105 MG/DL Calcium Level 9.7 8.5-10.1 MG/DL Magnesium Level 1.6 1.6-2.4 MG/DL My Orders Orders - ISHA BRAVO MD Basic Metabolic Panel (09/24/21 09:53) Cbc With Automated Diff (09/24/21 09:53) Magnesium (09/24/21 09:53) Promethazine Injection (Phenergan Injec (09/24/21 10:00) Ed Iv/Invasive Line Start (09/24/21 09:53) Lactated Ringers (Lr 1000 Ml Iv Solution (09/24/21 10:00) Medications Given in ED Vital Signs/I&O 09/24/21 09/24/21 09:41 13:14 Temp 37.1 37.1 Pulse 69 71 Resp 20 18 B/P (MAP) 158/101 (120) 158/98 Pulse Ox 96 98 O2 Delivery Room Air Room Air Capillary Refill : Less Than 3 Seconds Blood Pressure Mean: 120 Progress Note : Progress Note She is outside the treatment window for oral antivirals and monoclonal antibody infusions as this is day 8 of symptoms. She was hydrated with a liter of LR and nausea was treated with Phenergan. She reported Zofran usually does not work for her. Vital signs remained stable. She did not meet requirements for inpatient admission. Departure Impression Primary Impression: COVID-19 Additional Impression: Nausea vomiting and diarrhea Disposition: HOME, SELF-CARE Condition: Improved Departure-Patient Inst. Decision time for Depature: 12:53 Referrals: PATRICE RODNEY MD (PCP/Family) Primary Care Physician Patient Instructions: COVID-19 ED Add. Discharge Instructions: Continue to drink plenty of clear liquids. Use Phenergan (promethazine) as prescribed for nausea and vomiting. Please be aware this may cause drowsiness. Return to care if you have worsening symptoms. Try to change positions often and exercise deep breathing often. This will improve overall respiratory function during COVID-19. Call your doctor with any questions or concerns. All discharge instructions reviewed with patient and/or family. Voiced understanding. Scripts Promethazine HCl (Promethazine HCl) 12.5 Mg Tablet 12.5 MG PO Q6H PRN for NAUSEA/VOMITING, #20 TAB Prov: ISHA BRAVO MD 09/24/21 Copy Copies To 1: PATRICE RODNEY MD, JOSHUA T MD Sep 24, 2021 12:55
[2021-09-24 13:14] VITALS: BP 158/98
== END 2021-09-24 14:22 | disposition home or self-care (01) ==
LOC: EDUNIT# 09:43 → ER 09:44
DX: U07.1 COVID-19 (principal); R11.2 Nausea with vomiting, unspecified; R19.7 Diarrhea, unspecified; I12.9 Hypertensive chronic kidney disease with stage 1 through stage 4 chronic kidney disease, or unspecified chronic kidney disease; N18.9 Chronic kidney disease, unspecified; E11.22 Type 2 diabetes mellitus with diabetic chronic kidney disease; E11.40 Type 2 diabetes mellitus with diabetic neuropathy, unspecified; E11.43 Type 2 diabetes mellitus with diabetic autonomic (poly)neuropathy; K31.84 Gastroparesis; G47.30 Sleep apnea, unspecified; Z73.0 Burn-out; Z99.89 Dependence on other enabling machines and devices; Z79.4 Long term (current) use of insulin; Z28.311 Partially vaccinated for COVID-19
CPT/HCPCS: 36415; 80048; 83735; 85025; 99283

== ENCOUNTER 2021-11-02 06:22 | Outpatient (CLI) | payer MEDICARE, OTHER ==
[~2021-11-02] VITALS: Ht 170.2 cm; Wt 99.8 kg
== END 2021-11-02 10:10 | disposition home or self-care (01) ==
LOC: PREOP 06:22
PROVIDERS: ATTEND Internal Medicine
DX: Z01.818 Encounter for other preprocedural examination (principal)

== ENCOUNTER → 2021-11-04 | Outpatient (CLI) | payer MEDICARE, OTHER ==
--- NOTE | 2021-11-04 17:38 | Diagnostic Imaging Report ---
PROCEDURE: US Renal Bilateral. TECHNIQUE: Multiple real-time grayscale images were obtained over the kidneys in various projections bilaterally. INDICATION: Chronic kidney disease COMPARISON: None. FINDINGS: Both kidneys are normal in size and echogenicity. Both kidneys measure approximately 11 cm in length. The cortical thickness and the cortical medullary differentiation is well maintained. There is no evidence of calculi, focal mass or hydronephrosis. Limited views of the pelvis demonstrate moderately distended urinary bladder. Prevoid bladder volume measures 325 mL. There is minimal postvoid residual measuring 15 mL. No large intraluminal masses or calculi are present. There is no ascites. IMPRESSION: Normal renal sonogram. Dictated by: Dictated on workstation # [id number]
== END ==
LOC: RAD 12:56
PROVIDERS: ATTEND Internal Medicine Nephrology
DX: D17.71 Benign lipomatous neoplasm of kidney (principal); I12.9 Hypertensive chronic kidney disease with stage 1 through stage 4 chronic kidney disease, or unspecified chronic kidney disease; N18.32 Chronic kidney disease, stage 3b; E21.3 Hyperparathyroidism, unspecified
CPT/HCPCS: 76770

== ENCOUNTER 2022-01-17 09:07 | Emergency (ER) | payer MEDICARE, OTHER ==
[~2022-01-17] VITALS: Ht 170.8 cm; Wt 99.8 kg
[~2022-01-17 09:07] MED LIST changes: +MAGN296S68 PO; -MAGN296S71 PO
--- NOTE | 2022-01-17 09:29 | ED GI ---
General Chief Complaint: Abdominal/GI Problems Stated Complaint: NAUSEA|VOMITING|DIARRHEA Source of Information: Patient, EMS Exam Limitations: No Limitations History of Present Illness Date Seen by Provider: Jan 17, 2022 Time Seen by Provider: 09:20 Initial Comments Patient is a 66-year-old female who presents from a local detention chief complaint nausea, vomiting abdominal discomfort and diarrhea. Symptom onset yesterday. No recent antibiotic use. She states the day before symptom onset she had fish for dinner at her assisted living facility. She states she is now just at the point of dry heaving. She has not taken any of her daily prescribed medications for the last 2 days due to nausea and vomiting. No fevers reported. No COVID symptoms. No COVID-positive contacts that she is aware of. She denies dysuria, urgency or frequency. She feels a little generally weak. She has had multiple prior abdominal surgeries to include total abdominal hysterect leta as well as cholecystectomy. She was scheduled for colonoscopy by Dr. Brown back in November but was unable to tolerate the prep. She denies black or bloody stool or blood in her vomit. No chest pain or shortness of breath. She does endorse in the last 24 hours orthopnea with laying flat. She does not normally wear home oxygen. Reportedly oxygen saturations of 93% prior to arrival. She did arrive on oxygen to the emergency department. She complains of a little swelling in her lower extremities. Has a history of chronic kidney disease diabetes and hypertension. All other review of systems reviewed and negative except as stated Timing/Duration: 1-2 Days Severity/Quality: Moderate Location: Generalized Abdomen Associated Symptoms: Nausea/Vomiting, Weakness, Other (diarrhea) Allergies and Home Medications Allergies Coded Allergies: codeine (Verified Allergy, Severe, SOA, pt has rec Lortab, Percocet, morphine in the past, 11/17/20) bupropion (Verified Allergy, Mild, 11/16/20) COUGH isosorbide (Verified Allergy, Mild, 11/16/20) COUGH levofloxacin (Verified Allergy, Mild, 11/16/20) COUGH ramipril (Verified Allergy, Mild, 11/16/20) COUGH celecoxib (Unverified Allergy, Unknown, 03/08/15) cinacalcet (Verified Allergy, Unknown, 03/07/20) clarithromycin (Verified Allergy, Unknown, 03/07/20) hydrocodone (Verified Adverse Reaction, Unknown, 11/16/20) HYPOTENSION Patient Home Medication List Home Medication List Reviewed: Yes Acetaminophen (Acetaminophen) 500 Mg Tablet, 1,000 MG PO Q6H PRN for PAIN-MILD (1-4) OR TEMPATURE, (Reported) Entered as Reported by: KIKO CABELLO on 11/16/20 0900 Allopurinol (Allopurinol) 100 Mg Tablet, 100 MG PO DAILY, (Reported) Entered as Reported by: АНДРЕЙ MAK on 09/10/20 1148 Amlodipine Besylate (Amlodipine Besylate) 5 Mg Tablet, 5 MG PO DAILY, (Reported) Entered as Reported by: KIKO CABELLO on 11/16/20 0851 Ascorbate Calcium (Vitamin C) 500 Mg Tablet, 500 MG PO BID, (Reported) Entered as Reported by: KIKO CABELLO on 11/16/20 0900 Aspirin (Aspirin EC) 81 Mg Tablet.dr, 81 MG PO DAILY, (Reported) Entered as Reported by: АНДРЕЙ MAK on 09/14/20 1539 Atenolol (Atenolol) 25 Mg Tablet, 25 MG PO DAILY, (Reported) Entered as Reported by: АНДРЕЙ MAK on 09/10/20 1151 Atorvastatin Calcium (Atorvastatin Calcium) 80 Mg Tablet, 80 MG PO HS, (Reported) Entered as Reported by: АНДРЕЙ MAK on 09/10/20 1148 Clopidogrel Bisulfate (Plavix) 75 Mg Tablet, 75 MG PO DAILY, (Reported) Entered as Reported by: АНДРЕЙ MAK on 09/14/20 1539 Diclofenac Sodium (Voltaren Arthritis Pain) 20 Gm Gel..gram., 4 GM TP QID, (Reported) Entered as Reported by: KIKO CABELLO on 11/16/20 0900 Docusate Sodium (Colace) 100 Mg Capsule, 100 MG PO BID, (Reported) Entered as Reported by: KIKO CABELLO on 11/16/20 0900 Insulin NPH Human Isophane (Novolin N) 100 Unit/1 Ml Vial, 30 UNIT SQ HS, (Reported) Entered as Reported by: KIKO CABELLO on 11/16/20 0851 Insulin NPH Human Isophane (Novolin N) 100 Unit/1 Ml Vial, 20 UNIT SQ DAILY, (Reported) Entered as Reported by: KIKO CABELLO on 11/16/20 0851 Insulin Regular, Human (Humulin R) 1,000 Units/10 Ml Soln, 10 UNITS SQ TIDAC, (Reported) Entered as Reported by: KIKO CABELLO on 11/16/20 0851 Losartan Potassium (Losartan Potassium) 100 Mg Tablet, 100 MG PO DAILY, (Reported) Entered as Reported by: АНДРЕЙ MAK on 09/10/20 1148 Magnesium Citrate (Magnesium Citrate) 296 Ml Solution, 296 ML PO DAILY PRN for CONSTIPATION-9TH LINE, (Reported) Entered as Reported by: KIKO CABELLO on 11/16/20 0900 Meclizine HCl (Meclizine HCl) 25 Mg Tablet, 25 MG PO BID PRN PRN for NAUSEA/VOMITING, (Reported) Entered as Reported by: KIKO CABELLO on 11/16/20 0900 Melatonin (Melatonin) 5 Mg Tablet, 5 MG PO HS, (Reported) Entered as Reported by: АНДРЕЙ MAK on 11/17/20 1307 Metoclopramide HCl (Metoclopramide HCl) 10 Mg Tablet, 10 MG PO BID PRN for NAUSEA/VOMITING-3RD LINE, (Reported) Entered as Reported by: АНДРЕЙ MAK on 09/10/20 1151 Naproxen Sodium (Aleve) 220 Mg Tablet, 220 MG PO Q12H PRN for PAIN-MILD (1-4), (Reported) Entered as Reported by: KIKO CABELLO on 11/16/20 0851 Oxybutynin Chloride (Oxybutynin Chloride ER) 5 Mg Tab.er.24, 5 MG PO DAILY, (Reported) Entered as Reported by: АНДРЕЙ MAK on 03/08/20 1331 Oxycodone HCl/Acetaminophen (Percocet 5-325 mg Tablet) 1 Each Tablet, 1 TAB PO Q4H PRN for PAIN-MODERATE (5-7), (Reported) Entered as Reported by: KIKO CABELLO on 11/16/20 0851 Pantoprazole Sodium (Pantoprazole Sodium) 40 Mg Tablet.dr, 40 MG PO DAILY, (Reported) Entered as Reported by: KIKO CABELLO on 11/16/20 0851 Promethazine HCl (Promethazine HCl) 12.5 Mg Tablet, 12.5 MG PO Q6H PRN for NAUSEA/VOMITING Prescribed by: ISHA LUNDY on 09/24/21 1255 Ranolazine (Ranexa) 1,000 Mg Tab.er.12h, 1,000 MG PO BID, (Reported) Entered as Reported by: CARMELO PETERS on 08/26/18 1218 Sennosides/Docusate Sodium (Stool Softener-Laxative Tablet) 1 Each Tablet, 1 EACH PO BID, (Reported) Entered as Reported by: KIKO CABELLO on 11/16/20 0851 Sertraline HCl (Sertraline HCl) 25 Mg Tablet, 25 MG PO HS, (Reported) Entered as Reported by: АНДРЕЙ MAK on 03/08/20 1331 Review of Systems Review of Systems Constitutional: see HPI EENTM: No Symptoms Reported Respiratory: Orthopnea, SOA at Rest Cardiovascular: No Symptoms Reported, Edema Gastrointestinal: Abdominal Pain, Diarrhea, Nausea, Vomiting Genitourinary: No Symptoms Reported Musculoskeletal: no symptoms reported Skin: no symptoms reported Psychiatric/Neurological: No Symptoms Reported All Other Systems Reviewed Negative Unless Noted: Yes Past Wnwssvy-Tdxnlf-Rcymos Hx Patient Social History Tobacco Use?: No Use of E-Cig and/or Vaping dev: No Substance use?: No Alcohol Use?: No Pt feels they are or have been: No Immunizations Up To Date Tetanus Booster (TDap): Unknown Influenza Vaccine Up-to-Date: Yes; Up-to-Date First/Initial COVID19 Vaccinat: 2020 Second COVID19 Vaccination Phill: 2020 Third COVID19 Vaccination Date: 2020 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 PRIETO 5-6 YRS. AGO, T&A-49 YRS. 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 Sexually Transmitted Disease: No HIV/AIDS: No Genitourinary: Yes (CHRONIC KIDNEY DISEASE) Kidney Stones, Renal Failure Gastrointestinal: Yes (GASTROPARESIS) Gastroesophageal Reflux, Chronic Constipation Musculoskeletal: Yes (HISTORY OF FALLS/WEAKNESS) Osteoporosis, Arthritis, Back Injury Endocrine: Yes Diabetes, Insulin dep HEENT: Yes (CHRONIC BLURRINESS OF RT EYE) Chronic Ear Infection Hearing Impairment: Hard of Hearing Cancer: No Psychosocial: Yes Sleep Difficulties, Anxiety, Depression Integumentary: Yes Psoriasis Blood Disorders: No Adverse Reaction/Blood Tranf: No Family Medical History Cancer (lung and ovarian) 09 BROTHER, Onset:30's - 40 09 SISTER, Onset:60 years & older Congenital heart disease (mitral valve prolapse) 09 SISTER 09 SISTER Congestive heart failure 03 FATHER, Onset:60 years & older 03 MOTHER, Onset:50's - 60 09 SISTER, Onset:60 years & older Family history: Arthritis 03 MOTHER, Onset:60 years & older Family history: Diabetes mellitus 03 FATHER, Onset:60 years & older 09 SISTER, Onset:50's - 60 Family history: Gastrointestinal disease 03 FATHER, Onset:50's - 60 Hereditary disease (HTN) 09 SISTER, Onset:40's - 50 History of - disorder (Urinary problems) 09 SISTER, Onset:60 years & older 09 SISTER, Onset:20's - 25 History of - respiratory disease (asthma) 09 SISTER Hypercholesterolemia 09 SISTER, Onset:50's - 60 Psychotic disorder (anxiety) 09 SISTER, Onset:30's - 40 Heart Disease Physical Exam Vital Signs Vital Signs - First Documented 01/17/22 09:11 Temp 36.0 Pulse 95 Resp 18 B/P (MAP) 175/111 (132) Pulse Ox 99 Capillary Refill : Height/Weight/BMI Height: 5'6.00" Weight: 220lbs. 10.0oz. [id number]; 34.45 BMI Method:Estimated General Appearance: WD/WN, no apparent distress HEENT: PERRL/EOMI Respiratory: lungs clear, normal breath sounds, no respiratory distress, no accessory muscle use Cardiovascular: regular rate, rhythm Gastrointestinal: non tender, soft, abnormal bowel sounds (hypoactive bowel sounds; very minimal tenderness to the entire abdomen. no involuntary guarding or rebound) Extremities: normal range of motion, no pedal edema Neurologic/Psychiatric: no motor/sensory deficits, alert, normal mood/affect, oriented x 3 Skin: normal color, warm/dry Progress/Results/Core Measures Results/Orders Lab Results Laboratory Tests Test 01/17/22 09:10 Range/Units White Blood Count 10.9 4.3-11.0 10^3/uL Red Blood Count 3.82 3.80-5.11 10^6/uL Hemoglobin 12.8 11.5-16.0 g/dL Hematocrit 38 35-52 % Mean Corpuscular Volume 99 80-99 fL Mean Corpuscular Hemoglobin 34 25-34 pg Mean Corpuscular Hemoglobin Concent 34 32-36 g/dL Red Cell Distribution Width 12.9 10.0-14.5 % Platelet Count 225 130-400 10^3/uL Mean Platelet Volume 10.9 9.0-12.2 fL Immature Granulocyte % (Auto) 1 % Neutrophils (%) (Auto) 80 H 42-75 % Lymphocytes (%) (Auto) 16 12-44 % Monocytes (%) (Auto) 4 0-12 % Eosinophils (%) (Auto) 0 0-10 % Basophils (%) (Auto) 0 0-10 % Neutrophils # (Auto) 8.7 H 1.8-7.8 10^3/uL Lymphocytes # (Auto) 1.7 1.0-4.0 10^3/uL Monocytes # (Auto) 0.4 0.0-1.0 10^3/uL Eosinophils # (Auto) 0.0 0.0-0.3 10^3/uL Basophils # (Auto) 0.0 0.0-0.1 10^3/uL Immature Granulocyte # (Auto) 0.1 0.0-0.1 10^3/uL Sodium Level 135 135-145 MMOL/L Potassium Level 5.1 H 3.6-5.0 MMOL/L Chloride Level 104 98-107 MMOL/L Carbon Dioxide Level 18 L 21-32 MMOL/L Anion Gap 13 5-14 MMOL/L Blood Urea Nitrogen 16 7-18 MG/DL Creatinine 1.55 H 0.60-1.30 MG/DL Estimat Glomerular Filtration Rate 37 BUN/Creatinine Ratio 10 Glucose Level 376 H 70-105 MG/DL Calcium Level 10.1 8.5-10.1 MG/DL My Orders Orders - LAKEISHA DIAZ MD Ed Iv/Invasive Line Start (01/17/22 09:26) Cbc With Automated Diff (01/17/22 09:26) Basic Metabolic Panel (01/17/22 09:26) Ns Iv 1000 Ml (Sodium Chloride 0.9%) (01/17/22 10:15) Promethazine Injection (Phenergan Injec (01/17/22 10:15) Medications Given in ED Current Medications Medications Dose Ordered Sig/Masha Route Start Time Stop Time Status Last Admin Dose Admin Promethazine HCl 25 mg ONCE ONCE IVP 01/17/22 10:15 01/17/22 10:16 DC 01/17/22 10:29 25 MG Vital Signs/I&O 01/17/22 01/17/22 09:11 09:30 Temp 36.0 Pulse 95 Resp 18 B/P (MAP) 175/111 (132) 152/91 (111) Pulse Ox 99 Progress Progress Note : Time: 11:52 Progress Note Patient reassessed after IV fluids and Phenergan. She states she is feeling better. Exam remains benign. Consideration given to acute appendicitis, bowel obstruction, colitis. Exam and laboratory findings do not support this. She states that she is comfortable with discharge to home. She has Phenergan available at the assisted living facility. Her vital signs are stable. She has not been hypoxic throughout her stay here in the emergency department. Return precautions are provided. She verbalized understanding. All questions are sought and answered. Departure Impression Primary Impression: Gastroenteritis Disposition: 01 HOME, SELF-CARE Condition: Improved Departure-Patient Inst. Decision time for Depature: 11:53 Referrals: PATRICE RODNEY MD (PCP/Family) Primary Care Physician Patient Instructions: Food Poisoning (DC) Add. Discharge Instructions: Follow a clear liquid diet throughout most of the afternoon today. You can slowly advance your diet this evening as tolerated. Continue the Phenergan at home, 1 tablet every 6-8 hours as needed for nausea. As long as you are not running a fever and you have no blood in your stool you can continue the Imodium as prescribed for diarrhea. If you develop worsening abdominal pain or fever or blood in your stool please come back to the emergency room for reevaluation. Copy Copies To 1: PATRICE RODNEY MD, KATHRYN M MD Jan 17, 2022 09:29
[2022-01-17 09:39] LABS: BASOPHILS % (AUTO) 0 % (0-10); EOSINOPHILS % (AUTO) 0 % (0-10); HEMATOCRIT 38 % (35-52); HEMOGLOBIN 12.8 g/dL (11.5-16.0); LYMPHOCYTES # (AUTO) 1.7 10^3/uL (1.0-4.0); LYMPHOCYTES % (AUTO) 16 % (12-44); MEAN CORPUSCULAR HEMOGLOBIN 34 pg (25-34); MEAN CORPUSCULAR HGB CONC 34 g/dL (32-36); MEAN CORPUSCULAR VOLUME 99 fL (80-99); MEAN PLATELET VOLUME 10.9 fL (9.0-12.2); MONOCYTES # (AUTO) 0.4 10^3/uL (0.0-1.0); MONOCYTES % (AUTO) 4 % (0-12); NEUTROPHILS # (AUTO) 8.7 10^3/uL (1.8-7.8); NEUTROPHILS % (AUTO) 80 % (42-75); PLATELET COUNT 225 10^3/uL (130-400); WHITE BLOOD COUNT 10.9 10^3/uL (4.3-11.0)
[2022-01-17 09:45] LABS: POTASSIUM 5.1 MMOL/L (3.6-5.0)
[2022-01-17 09:46] LABS: CALCIUM 10.1 MG/DL (8.5-10.1)
[2022-01-17 09:51] LABS: CREATININE SERUM 1.55 MG/DL (0.60-1.30)
[2022-01-17] MEDS ORDERED: NS IV 1000 ML 1,000 ML IV SCH (10:15)
[2022-01-17] MEDS ORDERED: PROMETHAZINE INJ 25 MG/ML (PHENERGAN) AMP IVP ONE (10:15)
[2022-01-17 12:40] VITALS: BP 160/87
== END 2022-01-17 12:44 | disposition home or self-care (01) ==
LOC: EDUNIT# 09:07 → ER 09:08
DX: K52.9 Noninfective gastroenteritis and colitis, unspecified (principal); E11.9 Type 2 diabetes mellitus without complications; Z79.4 Long term (current) use of insulin; Z90.49 Acquired absence of other specified parts of digestive tract; Z87.19 Personal history of other diseases of the digestive system
CPT/HCPCS: 36415; 80048; 85025; 99283

== ENCOUNTER 2022-02-12 13:00 | Inpatient (IN) | payer MEDICARE, OTHER ==
[~2022-02-12] VITALS: Ht 170 cm; Wt 99.4 kg
[~2022-02-12 13:00] MED LIST changes: +CLOP-31 PO; -CLOP75TA69 PO
[2022-02-12] MEDS ORDERED: ATROPINE INJ 0.4 MG/ML SDV IV ONE (13:15)
--- NOTE | 2022-02-12 13:19 | ED Cardiac General ---
History of Present Illness General Chief Complaint: Cardiac/General Problems Stated Complaint: UNRESPONSIVE Source: patient Exam Limitations: no limitations History of Present Illness Date Seen by Provider: Feb 12, 2022 Time Seen by Provider: 13:00 Initial Comments Patient is a 60-year-old female who presents to the emergency department via EMS after she was found to be less responsive than normal by assisted living facility earlier today. EMS state patient was awake upon their arrival but was markedly bradycardic with a heart rate in the 30s. Patient did not have any hyp otension or hypoxia. Patient is on 25 mg of atenolol daily and took her morning dose today. No other rate controlling medications noted on review of MAY. Patient has a history of myocardial infarction that was not amenable to stenting per patient's daughter who is at bedside. 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 Patient denies chest pain or any discomfort at this time. She also denies any shortness of air. Allergies and Home Medications Allergies Coded Allergies: codeine (Verified Allergy, Severe, SOA, pt has rec Lortab, Percocet, morphine in the past, 11/17/20) bupropion (Verified Allergy, Mild, 11/16/20) COUGH isosorbide (Verified Allergy, Mild, 11/16/20) COUGH levofloxacin (Verified Allergy, Mild, 11/16/20) COUGH ramipril (Verified Allergy, Mild, 11/16/20) COUGH celecoxib (Unverified Allergy, Unknown, 03/08/15) cinacalcet (Verified Allergy, Unknown, 03/07/20) clarithromycin (Verified Allergy, Unknown, 03/07/20) hydrocodone (Verified Adverse Reaction, Unknown, 11/16/20) HYPOTENSION Patient Home Medication List Home Medication List Reviewed: Yes Acetaminophen (Acetaminophen) 500 Mg Tablet, 1,000 MG PO Q6H PRN for PAIN-MILD (1-4) OR TEMPATURE, (Reported) Entered as Reported by: KIKO CABELLO on 11/16/20 0900 Allopurinol (Allopurinol) 100 Mg Tablet, 100 MG PO DAILY, (Reported) Entered as Reported by: АНДРЕЙ MAK on 09/10/20 1148 Amlodipine Besylate (Amlodipine Besylate) 5 Mg Tablet, 5 MG PO DAILY, (Reported) Entered as Reported by: KIKO CABELLO on 11/16/20850 Ascorbate Calcium (Vitamin C) 500 Mg Tablet, 500 MG PO BID, (Reported) Entered as Reported by: KIKO CABELLO on 11/16/20 09 Aspirin (Aspirin EC) 81 Mg Tablet.dr, 81 MG PO DAILY, (Reported) Entered as Reported by: АНДРЕЙ MAK on 09/14/20 153 Atenolol (Atenolol) 25 Mg Tablet, 25 MG PO DAILY, (Reported) Entered as Reported by: АНДРЕЙ MAK on 09/10/20 1151 Atorvastatin Calcium (Atorvastatin Calcium) 80 Mg Tablet, 80 MG PO HS, (Reported) Entered as Reported by: АНДРЕЙ MAK on 09/10/20 1148 Clopidogrel Bisulfate (Plavix) 75 Mg Tablet, 75 MG PO DAILY, (Reported) Entered as Reported by: АНДРЕЙ MAK on 09/14/20 153 Diclofenac Sodium (Voltaren Arthritis Pain) 20 Gm Gel..gram., 4 GM TP QID, (Reported) Entered as Reported by: KIKO CABELLO on 11/16/20899 Docusate Sodium (Colace) 100 Mg Capsule, 100 MG PO BID, (Reported) Entered as Reported by: KIKO CABELLO on 11/16/20899 Insulin NPH Human Isophane (Novolin N) 100 Unit/1 Ml Vial, 30 UNIT SQ HS, (Reported) Entered as Reported by: KIKO CABELLO on 11/16/20850 Insulin NPH Human Isophane (Novolin N) 100 Unit/1 Ml Vial, 20 UNIT SQ DAILY, (Reported) Entered as Reported by: KIKO CABELLO on 11/16/20850 Insulin Regular, Human (Humulin R) 1,000 Units/10 Ml Soln, 10 UNITS SQ TIDAC, (Reported) Entered as Reported by: KIKO CABELLO on 11/16/20850 Losartan Potassium (Losartan Potassium) 100 Mg Tablet, 100 MG PO DAILY, (Reported) Entered as Reported by: АНДРЕЙ MAK on 09/10/20 114 Magnesium Citrate (Magnesium Citrate) 296 Ml Solution, 296 ML PO DAILY PRN for CONSTIPATION-9TH LINE, (Reported) Entered as Reported by: KIKO CABELLO on 11/16/20 09 Meclizine HCl (Meclizine HCl) 25 Mg Tablet, 25 MG PO BID PRN PRN for NAUSEA/VOMITING, (Reported) Entered as Reported by: KIKO CABELLO on 11/16/20 0900 Melatonin (Melatonin) 5 Mg Tablet, 5 MG PO HS, (Reported) Entered as Reported by: АНДРЕЙ MAK on 11/17/20 1307 Metoclopramide HCl (Metoclopramide HCl) 10 Mg Tablet, 10 MG PO BID PRN for NAUSEA/VOMITING-3RD LINE, (Reported) Entered as Reported by: АНДРЕЙ MAK on 09/10/20 1151 Naproxen Sodium (Aleve) 220 Mg Tablet, 220 MG PO Q12H PRN for PAIN-MILD (1-4), (Reported) Entered as Reported by: KIKO CABELLO on 11/16/20 0851 Oxybutynin Chloride (Oxybutynin Chloride ER) 5 Mg Tab.er.24, 5 MG PO DAILY, (Reported) Entered as Reported by: АНДРЕЙ MAK on 03/08/20 1331 Oxycodone HCl/Acetaminophen (Percocet 5-325 mg Tablet) 1 Each Tablet, 1 TAB PO Q4H PRN for PAIN-MODERATE (5-7), (Reported) Entered as Reported by: KIKO CABELLO on 11/16/20 0851 Pantoprazole Sodium (Pantoprazole Sodium) 40 Mg Tablet.dr, 40 MG PO DAILY, (Reported) Entered as Reported by: KIKO CABELLO on 11/16/20 0851 Promethazine HCl (Promethazine HCl) 12.5 Mg Tablet, 12.5 MG PO Q6H PRN for NAUSEA/VOMITING Prescribed by: ISHA LUNDY on 09/24/21 1255 Ranolazine (Ranexa) 1,000 Mg Tab.er.12h, 1,000 MG PO BID, (Reported) Entered as Reported by: CARMELO PETERS on 08/26/18 1218 Sennosides/Docusate Sodium (Stool Softener-Laxative Tablet) 1 Each Tablet, 1 EACH PO BID, (Reported) Entered as Reported by: KIKO CABELLO on 11/16/20 0851 Sertraline HCl (Sertraline HCl) 25 Mg Tablet, 25 MG PO HS, (Reported) Entered as Reported by: АНДРЕЙ MAK on 03/08/20 1331 Review of Systems Review of Systems Constitutional: no symptoms reported EENTM: No Symptoms Reported Respiratory: No Symptoms Reported Cardiovascular: See HPI Gastrointestinal: No Symptoms Reported Genitourinary: No Symptoms Reported Musculoskeletal: no symptoms reported Skin: no symptoms reported Psychiatric/Neurological: No Symptoms Reported Endocrine: No Symptoms Reported Hematologic/Lymphatic: No Symptoms Reported Past Epvbwtt-Nyksks-Xingkx Hx Immunizations Up To Date Tetanus Booster (TDap): Unknown First/Initial COVID19 Vaccinat: 2020 Second COVID19 Vaccination Phill: 2020 Third COVID19 Vaccination Date: 2020 Seasonal Allergies Seasonal Allergies: No Past Medical History Surgery/Hospitalization HX: PT HAS HX OF LEFT HIP SURGERY STATES SHE HAS 2 PINS IN IT, GALLBLADDER, TOTAL HYST, PMH; TYPE 2 DM, HTN SEE [facility] TRANSFER SHEET Surgeries: Yes (HYSTERECTOMY 1997, LAP. PRIETO 5-6 YRS. AGO, T&A-49 YRS. AGO) Gallbladder, Hysterectomy, Orthopedic, Tonsillectomy Respiratory: Yes (cpap at hs) Sleep Apnea Currently Using CPAP: No Currently Using BIPAP: No Cardiac: Yes (SVT, [place] 2013) Cardiomyopathy, Coronary Artery Disease, Heart Attack, High Cholesterol, Hypertension Neurological: Yes (FACIAL WEAKNESS FOLLOWING SUBARACHNOID HEMORRHAGE) Neuropathy, Stroke, Vertigo Reproductive Disorders: No Female Reproductive Disorders: Denies SAW MAN History: Hysterectomy Sexually Transmitted Disease: No HIV/AIDS: No Genitourinary: Yes (CHRONIC KIDNEY DISEASE) Kidney Stones, Renal Failure Gastrointestinal: Yes (GASTROPARESIS) Gastroesophageal Reflux, Chronic Constipation Musculoskeletal: Yes (HISTORY OF FALLS/WEAKNESS) Osteoporosis, Arthritis, Back Injury Endocrine: Yes Diabetes, Insulin dep HEENT: Yes (CHRONIC BLURRINESS OF RT EYE) Chronic Ear Infection Hearing Impairment: Hard of Hearing Cancer: No Psychosocial: Yes Sleep Difficulties, Anxiety, Depression Integumentary: Yes Psoriasis Blood Disorders: No Adverse Reaction/Blood Tranf: No Family Medical History Cancer (lung and ovarian) 09 BROTHER, Onset:30's - 40 09 SISTER, Onset:60 years & older Congenital heart disease (mitral valve prolapse) 09 SISTER 09 SISTER Congestive heart failure 03 FATHER, Onset:60 years & older 03 MOTHER, Onset:50's - 60 09 SISTER, Onset:60 years & older Family history: Arthritis 03 MOTHER, Onset:60 years & older Family history: Diabetes mellitus 03 FATHER, Onset:60 years & older 09 SISTER, Onset:50's - 60 Family history: Gastrointestinal disease 03 FATHER, Onset:50's - 60 Hereditary disease (HTN) 09 SISTER, Onset:40's - 50 History of - disorder (Urinary problems) 09 SISTER, Onset:60 years & older 09 SISTER, Onset:20's - 25 History of - respiratory disease (asthma) 09 SISTER Hypercholesterolemia 09 SISTER, Onset:50's - 60 Psychotic disorder (anxiety) 09 SISTER, Onset:30's - 40 Heart Disease Physical Exam Vital Signs Vital Signs - First Documented 02/12/22 13:00 Temp 36.9 Pulse 32 Resp 14 B/P (MAP) 105/58 (74) Pulse Ox 98 O2 Delivery Nasal Cannula O2 Flow Rate 2.00 Capillary Refill : Height, Weight, BMI Height: 5'6.00" Weight: 220lbs. 10.0oz. 100.067548sn; 34.00 BMI Method:Estimated General Appearance: No Apparent Distress, WD/WN HEENT: PERRL/EOMI, TMs Normal, Normal ENT Inspection, Pharynx Normal Neck: Full Range of Motion, Normal Inspection, Non Tender, Supple Respiratory: Chest Non Tender, Lungs Clear, Normal Breath Sounds Cardiovascular: Regular Rate, Rhythm Gastrointestinal: Non Tender, Soft Neurologic/Psychiatric: Alert, Oriented x3, No Motor/Sensory Deficits, Normal Mood/Affect Skin: Normal Color, Warm/Dry Progress/Results/Core Measures Results/Orders Lab Results Laboratory Tests Test 02/12/22 13:05 Range/Units White Blood Count 8.5 4.3-11.0 10^3/uL Red Blood Count 3.50 L 3.80-5.11 10^6/uL Hemoglobin 11.6 11.5-16.0 g/dL Hematocrit 35 35-52 % Mean Corpuscular Volume 100 H 80-99 fL Mean Corpuscular Hemoglobin 33 25-34 pg Mean Corpuscular Hemoglobin Concent 33 32-36 g/dL Red Cell Distribution Width 13.6 10.0-14.5 % Platelet Count 158 130-400 10^3/uL Mean Platelet Volume 11.6 9.0-12.2 fL Immature Granulocyte % (Auto) 1 % Neutrophils (%) (Auto) 66 42-75 % Lymphocytes (%) (Auto) 28 12-44 % Monocytes (%) (Auto) 5 0-12 % Eosinophils (%) (Auto) 1 0-10 % Basophils (%) (Auto) 0 0-10 % Neutrophils # (Auto) 5.6 1.8-7.8 10^3/uL Lymphocytes # (Auto) 2.4 1.0-4.0 10^3/uL Monocytes # (Auto) 0.4 0.0-1.0 10^3/uL Eosinophils # (Auto) 0.1 0.0-0.3 10^3/uL Basophils # (Auto) 0.0 0.0-0.1 10^3/uL Immature Granulocyte # (Auto) 0.1 0.0-0.1 10^3/uL Prothrombin Time 13.8 12.2-14.7 SEC INR Comment 1.0 0.8-1.4 Activated Partial Thromboplast Time 29 24-35 SEC Sodium Level 136 135-145 MMOL/L Potassium Level 6.4 H 3.6-5.0 MMOL/L Chloride Level 109 H 98-107 MMOL/L Carbon Dioxide Level 19 L 21-32 MMOL/L Anion Gap 8 5-14 MMOL/L Blood Urea Nitrogen 30 H 7-18 MG/DL Creatinine 2.02 H 0.60-1.30 MG/DL Estimat Glomerular Filtration Rate 27 BUN/Creatinine Ratio 15 Glucose Level 266 H 70-105 MG/DL Calcium Level 9.3 8.5-10.1 MG/DL Corrected Calcium 9.6 8.5-10.1 MG/DL Magnesium Level 1.6 1.6-2.4 MG/DL Total Bilirubin 0.6 0.1-1.0 MG/DL Aspartate Amino Transf (AST/SGOT) 22 5-34 U/L Alanine Aminotransferase (ALT/SGPT) 24 0-55 U/L Alkaline Phosphatase 58 40-136 U/L Myoglobin 123.2 H 10.0-92.0 NG/ML Troponin I < 0.028 <0.028 NG/ML Total Protein 6.2 L 6.4-8.2 GM/DL Albumin 3.6 3.2-4.5 GM/DL My Orders Orders - JAYLA LASSITER [employer]PORT [employer] Cbc With Automated Diff (02/12/22 13:07) Magnesium (02/12/22 13:07) Chest 1 View, Ap/Pa Only (02/12/22 13:07) Comprehensive Metabolic Panel (02/12/22 13:07) Myoglobin Serum (02/12/22 13:07) Protime With Inr (02/12/22 13:07) Partial Thromboplastin Time (02/12/22 13:07) O2 (02/12/22 13:07) Monitor-Rhythm Ecg Trace Only (02/12/22 13:07) Ed Iv/Invasive Line Start (02/12/22 13:07) Troponin I Faisal (02/12/22 13:07) Atropine Injection (Atropine Injection) (02/12/22 13:15) Insulin (Regular) Human (Novolin R (Per (02/12/22 14:00) Calc Gluc 1 Gm/100 Ml Ivpb (Calcium Gluc (02/12/22 14:00) Ed Admission (Communication) (02/12/22 14:08) Medications Given in ED Current Medications Medications Dose Ordered Sig/Masha Route Start Time Stop Time Status Last Admin Dose Admin Atropine Sulfate 0.5 mg ONCE ONCE IV 02/12/22 13:15 02/12/22 13:16 DC 02/12/22 13:15 0.5 MG Calcium Gluconate/ Sodium Chloride 100 ml @ 120 mls/hr ONCE ONCE IV 02/12/22 14:00 02/12/22 14:49 DC 02/12/22 14:00 120 MLS/HR Insulin Human Regular 10 unit ONCE ONCE IV 02/12/22 14:00 02/12/22 14:01 DC 02/12/22 14:01 10 UNIT Vital Signs/I&O 02/12/22 02/12/22 13:00 13:00 Temp 36.9 Pulse 32 Resp 14 B/P (MAP) 105/58 (74) Pulse Ox 98 98 O2 Delivery Nasal Cannula Room Air O2 Flow Rate 2.00 Progress Progress Note : Progress Note Patient is nontoxic and well-hydrated on exam. She is awake but confused. She responds to verbal stimuli. Vital signs notable for marked bradycardia with a rate in the 30s to low 40s. She is not hypotensive or hypoxic. He was placed on 2 L of oxygen for comfort. She was given 0.5 mg of atropine with a very transient increase in her heart rate to the mid 40's. Laboratory evaluation notable for hyperkalemia to 6.4. She also has elevated creatinine slightly above her baseline based on review of historical labs. She was given IV insulin as well as calcium gluconate. She was not concurrently given glucose as she was hyperglycemic above 250 on CMP. I spoke with cardiology who agrees to see the patient in consultation. They have no other recommendations outside of continuing treatment to lower the potassium as well as obtaining an echo in the a.m. I called the hospitalist who kindly agreed to admit the patient. Patient and family was updated on plan of care and understanding was verbalized. EKG : Rate: 33 Rhythm: S.Tba Departure Impression Primary Impression: Symptomatic bradycardia Disposition: ADMITTED INPATIENT Condition: Stable Departure-Patient Inst. Referrals: PATRICE RODNEY MD (PCP/Family) Primary Care Physician JAYAL LASSITER APRN Feb 12, 2022 13:19
[2022-02-12 13:21] LABS: BASOPHILS % (AUTO) 0 % (0-10); EOSINOPHILS # (AUTO) 0.1 10^3/uL (0.0-0.3); EOSINOPHILS % (AUTO) 1 % (0-10); HEMATOCRIT 35 % (35-52); HEMOGLOBIN 11.6 g/dL (11.5-16.0); LYMPHOCYTES # (AUTO) 2.4 10^3/uL (1.0-4.0); LYMPHOCYTES % (AUTO) 28 % (12-44); MEAN CORPUSCULAR HEMOGLOBIN 33 pg (25-34); MEAN CORPUSCULAR HGB CONC 33 g/dL (32-36); MEAN CORPUSCULAR VOLUME 100 fL (80-99); MEAN PLATELET VOLUME 11.6 fL (9.0-12.2); MONOCYTES # (AUTO) 0.4 10^3/uL (0.0-1.0); MONOCYTES % (AUTO) 5 % (0-12); NEUTROPHILS # (AUTO) 5.6 10^3/uL (1.8-7.8); NEUTROPHILS % (AUTO) 66 % (42-75); PLATELET COUNT 158 10^3/uL (130-400); WHITE BLOOD COUNT 8.5 10^3/uL (4.3-11.0)
[2022-02-12 13:27] LABS: PROTHROMBIN TIME PATIENT 13.8 SEC (12.2-14.7)
[2022-02-12 13:37] LABS: ALBUMIN 3.6 GM/DL (3.2-4.5); BILIRUBIN,TOTAL 0.6 MG/DL (0.1-1.0); CALCIUM 9.3 MG/DL (8.5-10.1); CREATININE SERUM 2.02 MG/DL (0.60-1.30); MAGNESIUM 1.6 MG/DL (1.6-2.4); POTASSIUM 6.4 MMOL/L (3.6-5.0); TOTAL PROTEIN 6.2 GM/DL (6.4-8.2)
[2022-02-12] MEDS ORDERED: inSUlin (REGULAR) HUMAN 1 UNIT/0.01 ML (CHARGE PER UNIT) IV ONE (14:00)
[2022-02-12] MEDS ORDERED: CALC GLUC 1 GM/100 ML IVPB 100 ML IV ONE ×2 (14:00→18:30)
--- NOTE | 2022-02-12 14:10 | Diagnostic Imaging Report ---
INDICATION: Bradycardia. COMPARISON: 09/09/2020. FINDINGS: The examination is limited by placement of the electric pads on the chest surface. It does appear that there is a right-sided pleural collection. There is no pneumothorax. The left lung appears to be clear. There is no dense left-sided airspace consolidation. The heart size is unchanged from the prior exam. IMPRESSION: Apparent new right-sided pleural collection when compared to the previous exam. There is associated airspace opacification at the right base. Right lower lobe pneumonia and effusion are the primary considerations. The left lung appears clear. Dictated by: Dictated on workstation # [id number]
[2022-02-12] MEDS ORDERED: ATROPINE INJECTION 1 MG/10 ML SYR (ABBOTT) INJ ONE (14:11)
[2022-02-12] MEDS ORDERED: ANTACID SUSP 30 ML UDC (MYLANTA) PO PRN (15:15)
[2022-02-12] MEDS ORDERED: MILK OF MAGNESIA 400 MG/5 ML 30 ML UDC PO PRN (15:15)
[2022-02-12] MEDS ORDERED: NS IV 500 ML 500 ML IV PRN (15:15)
[2022-02-12] MEDS ORDERED: LACTULOSE SYRUP 10GM/15ML (ENULOSE) 30ML UDC PO PRN (15:15)
[2022-02-12] MEDS ORDERED: CALCIUM CARBONATE 500 MG (TUMS) TAB.CHEW PO PRN (15:15)
[2022-02-12] MEDS ORDERED: diphenhydrAMINE 25 MG TAB (BENADRYL) PO PRN (15:15)
[2022-02-12] MEDS ORDERED: MELATONIN 3 MG TABLET PO PRN (15:15)
[2022-02-12] MEDS ORDERED: ONDANSETRON 4 MG/2 ML (SDV) Z0FRAN IV PRN (15:15)
[2022-02-12] MEDS ORDERED: ACETAMINOPHEN 325 MG TABLET PO PRN (15:15)
[2022-02-12] MEDS ORDERED: polyethylene glycoL POWDER 17 GM (MIRALAX) PACK PO PRN (15:15)
[2022-02-12] MEDS ORDERED: HYDROmorphone 2 MG/ML VIAL (DILAUDID) IV PRN (15:15)
[2022-02-12] MEDS ORDERED: BISACODYL 10 MG SUPP (DULCOLAX) PR PRN (15:15)
[2022-02-12] MEDS ORDERED: SODIUM BICARB 8.4% 50 MEQ/50 ML (ABBOTT) SYR IV ONE (15:15)
[2022-02-12] MEDS ORDERED: SODIUM POLYSTYRENE POWDER 15 GM BOTTLE PO ONE ×2 (15:15)
[2022-02-12] MEDS ORDERED: diphenhydrAMINE 50 MG/ML INJ (BENADRYL) IVP PRN (15:15)
[2022-02-12] MEDS ORDERED: ONDANSETRON 4 MG (ZOFRAN) ORAL DISSOLVE TAB PO PRN (15:15)
--- NOTE | 2022-02-12 15:20 | Tele-ICU Consult ---
Progress Note 66 y/o female who presented being unresponsive and bradycardic according to the ED work up in ED revealed HR was 32. Given atropine with minimal improvement BP ws 105/68 BUN: 30 Creat: 2.02 CO2 19 PMH: CAD, elevated cholesterol, HTN Laboratory Tests 02/12/22 13:05: Red Blood Count 3.50L, Mean Corpuscular Volume 100H, Potassium Level 6.4H, Chloride Level 109H, Carbon Dioxide Level 19L, Blood Urea Nitrogen 30H, Creati nine 2.02H, Glucose Level 266H, Myoglobin 123.2H, Total Protein 6.2L Focused Exam Height, Weight, BMI Height: 5'6.00" Weight: 220lbs. 10.0oz. 100.982314ad; 33.00 BMI Method:Estimated Labs Laboratory Tests 02/12/22 13:05 Results Results/Procedures Labs Laboratory Tests 02/12/22 13:05 Patient resulted labs reviewed. Results Labs Labs Laboratory Tests 02/12/22 13:05: White Blood Count 8.5, Red Blood Count 3.50L, Hemoglobin 11.6, Hematocrit 35, Mean Corpuscular Volume 100H, Mean Corpuscular Hemoglobin 33, Mean Corpuscular Hemoglobin Concent 33, Red Cell Distribution Width 13.6, Platelet Count 158, Mean Platelet Volume 11.6, Immature Granulocyte % (Auto) 1, Neutrophils (%) (Auto) 66, Lymphocytes (%) (Auto) 28, Monocytes (%) (Auto) 5, Eosinophils (%) (Auto) 1, Basophils (%) (Auto) 0, Neutrophils # (Auto) 5.6, Lymphocytes # (Auto) 2.4, Monocytes # (Auto) 0.4, Eosinophils # (Auto) 0.1, Basophils # (Auto) 0.0, Immature Granulocyte # (Auto) 0.1, Prothrombin Time 13.8, INR Comment 1.0, Activated Partial Thromboplast Time 29, Sodium Level 136, Potassium Level 6.4H, Chloride Level 109H, Carbon Dioxide Level 19L, Anion Gap 8, Blood Urea Nitrogen 30H, Creatinine 2.02H, Estimat Glomerular Filtration Rate 27, BUN/Creatinine Ratio 15, Glucose Level 266H, Calcium Level 9.3, Corrected Calcium 9.6, Magnesium Level 1.6, Total Bilirubin 0.6, Aspartate Amino Transf (AST/SGOT) 22, Alanine Aminotransferase (ALT/SGPT) 24, Alkaline Phosphatase 58, Myoglobin 123.2H, Troponin I < 0.028, Total Protein 6.2L, Albumin 3.6 Impression & Plan Impression & Plan IMP PHIL with hyperkalemia Bradycardia PLAN: sodium bicarb kayexelate IV hydration Glu and insulin (blood sugar already 266 Calcium recheck BMP Atropine as needed EKG JANY HO MD Feb 12, 2022 15:20
[2022-02-12] MEDS: NS IV 1000 ML 1,000 ML IV SCH ×2 (15:26→15:35)
[2022-02-12] MEDS: inSUlin ASPART (NovoLOG) 1 UNIT/0.01 ML (CHARGE PER UNIT) SC SCH ×2 (15:39→21:06)
[2022-02-12 17:34] LABS: CALCIUM 9.6 MG/DL (8.5-10.1); CREATININE SERUM 2.19 MG/DL (0.60-1.30); POTASSIUM 6.1 MMOL/L (3.6-5.0)
[2022-02-12] MEDS: RT-ALBUTEROL SULF 2.5 MG/3 ML PRE-MIX VIAL INH SCH ×2 (18:15→21:24)
[2022-02-12] MEDS ORDERED: inSUlin (REGULAR) HUMAN 1 UNIT/0.01 ML (CHARGE PER UNIT) IJ ONE (18:30)
[2022-02-12] MEDS ORDERED: DEXTROSE 10% IV SOLUTION 250 ML IV ONE (18:30)
[2022-02-12] MEDS: DOCUSATE SODIUM 100 MG (COLACE) CAP PO SCH (20:24)
[2022-02-12] MEDS: SENNOSIDES 8.6 MG (SENOKOT) TAB PO SCH (20:24)
[2022-02-12 22:27] LABS: CALCIUM 9.3 MG/DL (8.5-10.1); CREATININE SERUM 2.06 MG/DL (0.60-1.30); POTASSIUM 5.2 MMOL/L (3.6-5.0)
[2022-02-13] MEDS: NS IV 1000 ML 1,000 ML IV SCH ×4 (01:36→20:58)
[2022-02-13] MEDS: RT-ALBUTEROL SULF 2.5 MG/3 ML PRE-MIX VIAL INH SCH ×2 (02:13→07:09)
[2022-02-13 05:12] LABS: BASOPHILS % (AUTO) 0 % (0-10); MEAN CORPUSCULAR HGB CONC 33 g/dL (32-36); MONOCYTES % (AUTO) 8 % (0-12)
[2022-02-13 05:14] LABS: EOSINOPHILS # (AUTO) 0.1 10^3/uL (0.0-0.3); EOSINOPHILS % (AUTO) 1 % (0-10); HEMATOCRIT 33 % (35-52); HEMOGLOBIN 10.8 g/dL (11.5-16.0); LYMPHOCYTES # (AUTO) 2.3 10^3/uL (1.0-4.0); LYMPHOCYTES % (AUTO) 34 % (12-44); MEAN CORPUSCULAR HEMOGLOBIN 33 pg (25-34); MEAN CORPUSCULAR VOLUME 100 fL (80-99); MEAN PLATELET VOLUME 11.4 fL (9.0-12.2); MONOCYTES # (AUTO) 0.6 10^3/uL (0.0-1.0); NEUTROPHILS # (AUTO) 3.9 10^3/uL (1.8-7.8); NEUTROPHILS % (AUTO) 57 % (42-75); PLATELET COUNT 130 10^3/uL (130-400); WHITE BLOOD COUNT 6.9 10^3/uL (4.3-11.0)
[2022-02-13 05:36] LABS: ALBUMIN 3.5 GM/DL (3.2-4.5); BILIRUBIN,TOTAL 0.4 MG/DL (0.1-1.0); CALCIUM 9.5 MG/DL (8.5-10.1); CREATININE SERUM 1.86 MG/DL (0.60-1.30); MAGNESIUM 1.4 MG/DL (1.6-2.4); PHOSPHORUS 1.9 MG/DL (2.3-4.7); POTASSIUM 4.5 MMOL/L (3.6-5.0)
[2022-02-13] MEDS: inSUlin ASPART (NovoLOG) 1 UNIT/0.01 ML (CHARGE PER UNIT) SC SCH ×4 (05:45→20:22)
[2022-02-13] MEDS: KCL 20 MEQ TAB (K-DUR) PO SCH (05:45)
[2022-02-13] MEDS: MAGNESIUM 1 GM/100 ML IVPB 100 ML IV SCH (05:52)
[2022-02-13] MEDS ORDERED: POTASSIUM CL 10MEQ/50ML IVPB 50 ML IV SCH (06:00)
[2022-02-13] MEDS: SENNOSIDES 8.6 MG (SENOKOT) TAB PO SCH ×2 (07:48→20:22)
[2022-02-13] MEDS: DOCUSATE SODIUM 100 MG (COLACE) CAP PO SCH ×2 (07:48→20:22)
--- NOTE | 2022-02-13 08:38 | Tele-ICU Progress Note ---
Subjective Date Seen by a Provider: Feb 13, 2022 Time Seen by a Provider: 08:33 Subjective/Events-last exam 66 yo F found with AMS and severe sinus bradycardia, partial response to IV atropine, HR now 100 with good BP Pt is now awake and alert, Had been on atenolol 25 mg Bradycardia is new but has had SVT Is supposed to be seen by cardiology Sepsis Event Evaluation Height, Weight, BMI Height: 5'6.00" Weight: 220lbs. 10.0oz. 100.207017mo; 36.19 BMI Method:Estimated Exam Exam Patient acknowledged, consented, and participated in this virtual visit which was conducted using real time audio/video Vital Signs Date Time Temp Pulse Resp B/P (MAP) Pulse Ox O2 Delivery O2 Flow Rate FiO2 02/13/22 08:00 37.0 02/13/22 08:00 104 17 148/99 (115) 95 Room Air 02/13/22 07:22 99 02/13/22 07:09 95 Room Air 02/13/22 07:00 98 14 127/104 (112) 94 Room Air 02/13/22 06:00 95 26 145/81 (102) 95 Room Air 02/13/22 05:00 96 20 157/77 (103) 92 Room Air 02/13/22 04:06 93 Room Air 02/13/22 04:00 92 40 152/84 (106) 94 Room Air 02/13/22 03:00 90 11 148/84 (105) 98 Room Air 02/13/22 02:13 98 Room Air 02/13/22 02:13 86 13 164/93 (116) 97 Room Air 02/13/22 01:00 87 02/13/22 01:00 87 Room Air 02/13/22 00:09 81 30 154/97 (116) 93 Room Air 02/13/22 00:00 98 Room Air 02/12/22 23:58 37.0 02/12/22 23:00 81 30 134/75 (94) 95 Room Air 02/12/22 22:00 78 21 126/78 (94) 96 Room Air 02/12/22 21:24 96 Room Air 02/12/22 21:15 72 12 120/74 (89) 93 Room Air 02/12/22 21:05 36.5 02/12/22 21:00 71 18 136/104 (115) 96 Room Air 02/12/22 20:00 67 13 143/87 (105) 96 Room Air 02/12/22 20:00 94 Room Air 02/12/22 19:33 36.78709 02/12/22 19:25 36.5 02/12/22 19:00 64 02/12/22 19:00 64 14 124/83 (97) 96 Room Air 02/12/22 18:15 98 Room Air 02/12/22 18:00 67 15 139/97 (111) 97 Room Air 02/12/22 17:00 46 13 131/81 (98) 96 Room Air 02/12/22 16:35 96 Room Air 02/12/22 16:00 47 16 113/68 (83) 96 Room Air 02/12/22 15:21 39 02/12/22 15:18 36.1 02/12/22 15:03 36.0 39 18 105/41 (62) 94 Room Air 02/12/22 14:30 30 18 108/66 98 02/12/22 13:00 36.9 32 14 105/58 (74) 98 Room Air 02/12/22 13:00 98 Nasal Cannula 2.00 I & O 02/13/22 06:59 Intake Total 2320 ml Output Total 400 ml Balance 1920 ml Height & Weight Height: 5'6.00" Weight: 220lbs. 10.0oz. 100.676452xy; 36.19 BMI Method:Estimated General Appearance: No Apparent Distress, WD/WN HEENT: PERRL/EOMI, TMs Normal, Normal ENT Inspection, Pharynx Normal Neck: Full Range of Motion, Normal Inspection, Non Tender, Supple Respiratory: Chest Non Tender, Lungs Clear, Normal Breath Sounds Cardiovascular: Regular Rate, Rhythm, Tachycardia Capillary Refill: Less Than 3 Seconds Gastrointestinal: normal bowel sounds, non tender, soft Extremity: No Pedal Edema Neurologic/Psychiatric: Alert, Oriented x3, No Motor/Sensory Deficits, Normal Mood/Affect Skin: Normal Color, Warm/Dry Results Lab Laboratory Tests 02/12/22 13:05 02/12/22 17:05 02/12/22 21:55 02/13/22 04:50 Assessment/Plan Assessment/Plan Sinus bradycardia, has been on beta abel, Cardiology to see, will continue present management Critical Care: Critically Ill Patient Time spent with patient (mins): 20 JANY ANDERSON MD Feb 13, 2022 08:38
--- NOTE | 2022-02-13 08:38 | History & Physicial ---
History of Present Illness History of Present Illness Reason for visit/HPI 66-year-old female who is a resident of [facility] was admitted through emergency department yesterday afternoon following difficult to arouse from her nightly sleep. She informs me typically she sleeps in and she's not a breakfast person. The staff at the [facility] tried to awake her about 11:00 in the morning yesterday on February 12 and she was apparently not awakening. She was brought to the emergency department and found to have a low pulse rate around 30. She does take multiple medications and noteworthy is blood pressure medication as well as diabetes medication. She does take atenolol but she's been on this for years. She denied any chest pain or shortness of breath. She does have occasional diarrhea. Date of Admission Feb 12, 2022 at 14:10 Date Seen by a Provider: Feb 13, 2022 Time Seen by a Provider: 07:15 I consulted on this patient on 02/13/22 08:33 Attending Physician Amauri Rodney MD Admitting Physician Admitting Physician: Teressa Goodrich DO Attending Physician: Teressa Goodrich DO Consult Allergies and Home Medications Allergies Coded Allergies: codeine (Verified Allergy, Severe, SOA, pt has rec Lortab, Percocet, morphine in the past, 11/17/20) bupropion (Verified Allergy, Mild, 11/16/20) COUGH isosorbide (Verified Allergy, Mild, 11/16/20) COUGH levofloxacin (Verified Allergy, Mild, 11/16/20) COUGH ramipril (Verified Allergy, Mild, 11/16/20) COUGH celecoxib (Unverified Allergy, Unknown, 03/08/15) cinacalcet (Verified Allergy, Unknown, 03/07/20) clarithromycin (Verified Allergy, Unknown, 03/07/20) hydrocodone (Verified Adverse Reaction, Unknown, 11/16/20) HYPOTENSION Patient Home Medication List Home Medication List Reviewed: Yes Acetaminophen (Acetaminophen) 500 Mg Tablet, 1,000 MG PO Q6H PRN for PAIN-MILD (1-4) OR TEMPATURE, (Reported) Entered as Reported by: KIKO CABELLO on 11/16/20 0900 Last Action: Reviewed Albuterol Sulfate (Albuterol Sulfate) 0.63 Mg/3 Ml Vial.neb, 0.63 MG IH Q4H PRN for SHORTNESS OF BREATH, (Reported) Entered as Reported by: АНДРЕЙ MAK on 02/13/221436 Last Action: Reviewed Allopurinol (Allopurinol) 100 Mg Tablet, 100 MG PO 1200, (Reported) Entered as Reported by: АНДРЕЙ MAK on 09/10/20 114 Last Action: Reviewed Alprazolam (Alprazolam) 0.5 Mg Tablet, 0.5 MG PO HS, (Reported) Entered as Reported by: АНДРЕЙ MAK on 02/13/221436 Last Action: Reviewed Amlodipine Besylate (Amlodipine Besylate) 10 Mg Tablet, 10 MG PO 1200, (Reported) Entered as Reported by: АНДРЕЙ MAK on 02/13/221436 Last Action: Reviewed Aspirin (Aspirin EC) 81 Mg Tablet.dr, 81 MG PO 1200, (Reported) Entered as Reported by: АНДРЕЙ MAK on 09/14/20 1539 Last Action: Reviewed Atenolol (Atenolol) 25 Mg Tablet, 25 MG PO 1200, (Reported) Entered as Reported by: АНДРЕЙ MAK on 09/10/20 1151 Last Action: Reviewed Atorvastatin Calcium (Atorvastatin Calcium) 80 Mg Tablet, 80 MG PO HS, (Reported) Entered as Reported by: АНДРЕЙ MAK on 09/10/20 114 Last Action: Reviewed Clopidogrel Bisulfate (Plavix) 75 Mg Tablet, 75 MG PO 1200, (Reported) Entered as Reported by: АНДРЕЙ MAK on 09/14/20 1539 Last Action: Reviewed Ergocalciferol (Vitamin D2) (Vitamin D2) 1,250 Mcg (85292 Unit) Capsule, 1,250 MCG PO WEEK, (Reported) Entered as Reported by: АНДРЕЙ MAK on 02/13/221436 Last Action: Reviewed Gabapentin (Gabapentin) 100 Mg Capsule, 100 MG PO HS, (Reported) Entered as Reported by: АНДРЕЙ MAK on 02/13/221436 Last Action: Reviewed Insulin NPH Human Isophane (Novolin N) 100 Unit/Ml Vial, 40 UNIT SQ HS, (Reported) Entered as Reported by: KIKO CABELLO on 11/16/20 0870 Last Action: Reviewed Insulin NPH Human Isophane (Novolin N) 100 Unit/Ml Vial, 35 UNIT SQ DAILY, (Reported) Entered as Reported by: KIKO CABELLO on 11/16/20 0851 Last Action: Reviewed Insulin Regular, Human (Humulin R) 100 Unit/Ml Soln, UNITS SQ TIDAC, (Reported) Entered as Reported by: KIKO CABELLO on 11/16/20 0851 Last Action: Reviewed Loperamide HCl (Imodium A-D) 2 Mg Capsule, 2-4 MG PO UD PRN for DIARRHEA, (Reported) Entered as Reported by: АНДРЕЙ MAK on 02/13/22 1437 Last Action: Reviewed Losartan Potassium (Losartan Potassium) 100 Mg Tablet, 100 MG PO 1200, (Reported) Entered as Reported by: АНДРЕЙ MAK on 09/10/20 1148 Last Action: Reviewed Magnesium Citrate (Magnesium Citrate) 296 Ml Solution, 296 ML PO DAILY PRN for CONSTIPATION-9TH LINE, (Reported) Entered as Reported by: KIKO CABELLO on 11/16/20 0900 Last Action: Reviewed Meclizine HCl (Meclizine HCl) 25 Mg Tablet, 25 MG PO BID PRN PRN for NAUSEA/VOMITING, (Reported) Entered as Reported by: KIKO CABELLO on 11/16/20 09 Last Action: Reviewed Melatonin (Melatonin) 5 Mg Tablet, 5 MG PO HS, (Reported) Entered as Reported by: АНДРЕЙ MAK on 11/17/20 1307 Last Action: Reviewed Metoclopramide HCl (Metoclopramide HCl) 10 Mg Tablet, 10 MG PO BID PRN for NAUSEA/VOMITING-3RD LINE, (Reported) Entered as Reported by: АНДРЕЙ MAK on 09/10/20 1151 Last Action: Reviewed Oxybutynin Chloride (Oxybutynin Chloride ER) 5 Mg Tab.er.24, 5 MG PO 1200, (Reported) Entered as Reported by: АНДРЕЙ MAK on 03/08/20 1331 Last Action: Reviewed Pantoprazole Sodium (Pantoprazole Sodium) 40 Mg Tablet.dr, 40 MG PO 1200, (Reported) Entered as Reported by: KIKO CABELLO on 11/16/20 0851 Last Action: Reviewed Promethazine HCl (Promethazine HCl) 12.5 Mg Tablet, 12.5 MG PO Q6H PRN for NAUSEA/VOMITING-2ND LINE, (Reported) Entered as Reported by: АНДРЕЙ MAK on 02/13/22 1437 Last Action: Reviewed Ranolazine (Ranexa) 1,000 Mg Tab.er.12h, 1,000 MG PO BID, (Reported) Entered as Reported by: CARMELO PETERS on 08/26/18 1218 Last Action: Reviewed Sennosides/Docusate Sodium (Stool Softener-Laxative Tablet) 1 Each Tablet, 1 EACH PO BID, (Reported) Entered as Reported by: KIKO CABELLO on 11/16/20850 Last Action: Reviewed Sertraline HCl (Sertraline HCl) 25 Mg Tablet, 25 MG PO HS, (Reported) Entered as Reported by: АНДРЕЙ MAK on 03/08/20 1331 Last Action: Reviewed Discontinued Medications Amlodipine Besylate (Amlodipine Besylate) 5 Mg Tablet, 5 MG PO DAILY, (Reported) Discontinued Reason: Duplicate Order Entered as Reported by: KIKO CABELLO on 11/16/20850 Last Action: Discontinued Ascorbate Calcium (Vitamin C) 500 Mg Tablet, 500 MG PO BID, (Reported) Discontinued Reason: No Longer Taking Entered as Reported by: KIKO CABELLO on 11/16/20899 Last Action: Discontinued Diclofenac Sodium (Voltaren Arthritis Pain) 20 Gm Gel..gram., 4 GM TP QID, (Reported) Discontinued Reason: No Longer Taking Entered as Reported by: KIKO CABELLO on 11/16/20899 Last Action: Discontinued Docusate Sodium (Colace) 100 Mg Capsule, 100 MG PO BID, (Reported) Discontinued Reason: No Longer Taking Entered as Reported by: KIKO CABELLO on 11/16/20899 Last Action: Discontinued Naproxen Sodium (Aleve) 220 Mg Tablet, 220 MG PO Q12H PRN for PAIN-MILD (1-4), (Reported) Discontinued Reason: No Longer Taking Entered as Reported by: KIKO CABELLO on 11/16/20850 Last Action: Discontinued Oxycodone HCl/Acetaminophen (Percocet 5-325 mg Tablet) 1 Each Tablet, 1 TAB PO Q4H PRN for PAIN-MODERATE (5-7), (Reported) Discontinued Reason: No Longer Taking Entered as Reported by: KIKO CABELLO on 11/16/20850 Last Action: Discontinued Promethazine HCl (Promethazine HCl) 12.5 Mg Tablet, 12.5 MG PO Q6H PRN for NAUSEA/VOMITING Discontinued Reason: Duplicate Order Prescribed by: ISHA LUNDY on 09/24/21 1255 Last Action: Discontinued Past [id number]-[id number] Hx Patient Social History Marrital Status: Smoking Status: Never a Smoker 2nd Hand Smoke Exposure: Yes Recent Hopitalizations: No Have you traveled recently?: No Alcohol Use?: No Pt feels they are or have been: No Immunizations Up To Date Tetanus Booster (TDap): Unknown Date of Pneumonia Vaccine: Mar 07, 2014 Date of Influenza Vaccine: Jan 03, 2022 Seasonal Allergies Seasonal Allergies: No Surgeries Yes (HYSTERECTOMY 1997, LAP. PRIETO 5-6 YRS. AGO, T&A-49 YRS. 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 Genitourinary Yes (CHRONIC KIDNEY DISEASE) Kidney Stones, Renal Failure Gastrointestinal Yes (GASTROPARESIS) Gastroesophageal Reflux, Chronic Constipation Musculoskeletal Yes (HISTORY OF FALLS/WEAKNESS) Osteoporosis, Arthritis, Back Injury Endocrine History of Endocrine Disorders: Yes Endocrine Disorders: Diabetes, Insulin dep HEENT History of HEENT Disorders: Yes (CHRONIC BLURRINESS OF RT EYE) HEENT Disorders: Chronic Ear Infection Hearing Impairment: Hard of Hearing Cancer No Psychosocial History of Psychiatric Problem: Yes Behavioral Health Disorders: Sleep Difficulties, Anxiety, Depression Integumentary History of Skin or Integumenta: Yes Skin/Integumentary Disorders: Psoriasis Blood Transfusions History of Blood Disorders: No Adverse Reaction to a Blood Tr: No Family Medical History Significant Family History: Heart Disease Family Hx: Cancer (lung and ovarian) 09 BROTHER, Onset:30's - 40 09 SISTER, Onset:60 years & older Congenital heart disease (mitral valve prolapse) 09 SISTER 09 SISTER Congestive heart failure 03 FATHER, Onset:60 years & older 03 MOTHER, Onset:50's - 60 09 SISTER, Onset:60 years & older Family history: Arthritis 03 MOTHER, Onset:60 years & older Family history: Diabetes mellitus 03 FATHER, Onset:60 years & older 09 SISTER, Onset:50's - 60 Family history: Gastrointestinal disease 03 FATHER, Onset:50's - 60 Hereditary disease (HTN) 09 SISTER, Onset:40's - 50 History of - disorder (Urinary problems) 09 SISTER, Onset:60 years & older 09 SISTER, Onset:20's - 25 History of - respiratory disease (asthma) 09 SISTER Hypercholesterolemia 09 SISTER, Onset:50's - 60 Psychotic disorder (anxiety) 09 SISTER, Onset:30's - 40 Review of Systems Constitutional: see HPI Physical Exam Vital Signs Vital Signs - First Documented 02/12/22 13:00 Temp 36.9 Pulse 32 Resp 14 B/P (MAP) 105/58 (74) Pulse Ox 98 O2 Delivery Nasal Cannula O2 Flow Rate 2.00 Capillary Refill : Less Than 3 Seconds Height, Weight, BMI Height: 5'6.00" Weight: 220lbs. 10.0oz. [id number]; 36.19 BMI Method:Estimated General Appearance: No Apparent Distress Eyes: Bilateral Eye Normal Inspection HEENT: Pharynx Normal (but dry) Neck: Supple Respiratory: Lungs Clear Cardiovascular: Regular Rate, Rhythm (this am (02/13) in the Cardiac unit) Gastrointestinal: Soft Rectal: Deferred Back: Normal Inspection Extremity: Normal Capillary Refill Comments [facility] [place] NAME: CARMELA CARVALHO [employer] REC#: [id number] PT STATUS: ADM Mckinley : 1955 PHYSICIAN: JAYLA LASSITER APRN ADMIT DATE: 02/12/22/ICU Signed Date of Exam:02/12/22 CHEST 1 VIEW, AP/PA ONLY INDICATION: Bradycardia. COMPARISON: 09/09/2020. FINDINGS: The examination is limited by placement of the electric pads on the chest surface. It does appear that there is a right-sided pleural collection. There is no pneumothorax. The left lung appears to be clear. There is no dense left-sided airspace consolidation. The heart size is unchanged from the prior exam. IMPRESSION: Apparent new right-sided pleural collection when compared to the previous exam. There is associated airspace opacification at the right base. Right lower lobe pneumonia and effusion are the primary considerations. The left lung appears clear. Dictated by: Dictated on workstation # [id number] Dict: 02/12/22 1356 Trans: 02/12/22 1530 [id number] Interpreted by: BENITO GAYLE MD Electronically signed by: BENITO GAYLE MD 02/12/22 4650 Assessment/Plan Assessment and Plan 1. Bradycardiasymptomatic -she has been on atenolol in the past for her hypertension and not had any issues with bradycardia. 2. Hypertension -Will hold the atenolol for now and see how her blood pressure responds. 3. Diabetes mellitus -Stay on regular diabetic regimen as she was outpatient 4. Right lower lung consolidation, ? pleural effusion. This point she is afebrile and not mounting a white blood cell count. Admission Diagnosis 1. Bradycardiasymptomatic 2. Hypertension 3. Diabetes mellitus 4. Right lower lung consolidation, ? pleural effusion Admission Status: Inpatient Order (span 2 midnights) Reason for Inpatient Admission: Cardiology consultation and close monitoring of vital signs AMAURI RODNEY MD Feb 13, 2022 08:38
--- NOTE | 2022-02-13 08:40 | Physical Therapy Evaluation ---
PT Evaluation-General Medical Diagnosis Admission Date Feb 12, 2022 at 14:10 Medical Diagnosis: bradycardia Onset Date: Feb 12, 2022 Therapy Diagnosis Therapy Diagnosis: impaired mobility, strength Height/Weight Height (Feet): 5 Height (Inches): 6.00 Weight (Pounds): 220 Weight (Ounces): 10.0 Precautions Precautions/Isolations: Fall Prevention, Standard Precautions Referral Physician: Teressa Goodrich DO Reason for Referral: Evaluation/Treatment Medical History Pertinent Medical History: Arthritis, CAD, CVA, DM, HTN, Hypothroidism, NE, Neuropathy Additional Medical History Past Medical History Surgery/Hospitalization HX: PT HAS HX OF LEFT HIP SURGERY STATES SHE HAS 2 PINS IN IT, GALLBLADDER, TOTAL HYST, PMH; TYPE 2 DM, HTN SEE [facility] TRANSFER SHEET Surgeries: Yes (HYSTERECTOMY 1997, LAP. PRIETO 5-6 YRS. AGO, T&A-49 YRS. 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 Sexually Transmitted Disease: No HIV/AIDS: No Genitourinary: Yes (CHRONIC KIDNEY DISEASE) Kidney Stones, Renal Failure Gastrointestinal: Yes (GASTROPARESIS) Gastroesophageal Reflux, Chronic Constipation Musculoskeletal: Yes (HISTORY OF FALLS/WEAKNESS) Osteoporosis, Arthritis, Back Injury Endocrine: Yes Diabetes, Insulin dep HEENT: Yes (CHRONIC BLURRINESS OF RT EYE) Chronic Ear Infection Hearing Impairment: Hard of Hearing Cancer: No Psychosocial: Yes Sleep Difficulties, Anxiety, Depression Integumentary: Yes Psoriasis Blood Disorders: No Adverse Reaction/Blood Tranf: No Reviewed History: Yes Social History Home: Senior Living Prior Prior Level of Function SCALE: Activities may be completed with or without assistive devices. 8-Bpkngtfcyp-krmgzql completes the activity by him/herself with no assistance from a helper. 5-Set-up or Clean-up Assistance-helper sets up or cleans up; patient completes activity. Jasper assists only prior to or following the activity. 4-Supervision or Touching Assistance-helper provides verbal cues and/or touching/steadying and/or contact guard assistance as patient completes activity. Assistance may be provided throughout the activity or intermittently. 3-Partial/Moderate Assistance-helper does LESS THAN HALF the effort. Jasper lifts, holds or supports trunk or limbs, but provides less than half the effort. 2-Substantial/Maximal Assistance-helper does MORE THAN HALF the effort. Jasper lifts or holds trunk or limbs and provides more than half the effort. 6-Gxcwydjpx-ywcizr does ALL the effort. Patient does none of the effort to complete the activity. Or, the assistance of 2 or more helpers is required for the patient to complete the activity. If activity was not attempted, code reason: 7-Patient Refused. 9-Not Applicable-not attempted and the patient did not perform the activity before the current illness, exacerbation or injury. 10-Not Attempted due to Environmental Limitations-(lack of equipment, weather restraints, etc.). 88-Not Attempted due to Medical Conditions or Safety Concerns. Bed Mobility: 4 Transfers (B,C,W/C): 3 Gait: 3 Prior Devices Use: Manual wheelchair, Walker Patient states she can ambulate only a few feet using a rolling walker, mostly transfers to PT Evaluation-Current Subjective Patient in bed pre tx, agrees to PT, has no complaints of pain but states she is dizzy just laying there. Nurse notified. Pt/Family Goals "to get stronger" Objective Patient Orientation: Person, Place, Situation ROM/Strength ROM Lower Extremities WNL Strength Lower Extremities LLE (hip flexion 2/5, knee flexion 3+/5, knee extension 4/5, dorsiflexion 4/5), RLE (hip flexion 3+/5, knee flexion 4/5, knee extension 4/5, dorsiflexion 4/5) Sensory Vision: Wears Glasses Hearing: Functional Sensation Right Lower Extremit: Impaired Sensation Left Lower Extremity: Impaired Transfers Roll Left to Right (QC): 6 Sit to Lying (QC): 3 Lying to Sitting/Side of Bed(Q: 4 Patient was able to sit to the side of the bed for several minutes and perform LE exercise, dizziness continued during sitting. Balance Sitting Static: Normal Sitting Dynamic: Normal Treatment BLE seated exercises x20 (AP, LAQ), supine exercises (QS, HS) Assessment/Needs Patient in bed post tx with nurse call, phone, tray, all needs met. HR stayed a little above 100 bpm and O2 was about 93% the whole time. 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 Goals Engineer System Administrator Goals PT Engineer System Administrator Goals Time Frame: Feb 20, 2022 Roll Left & Right (QC): 6 Sit to Lying (QC): 6 Lying-Sitting on Side/Bed(QC): 6 Sit to Stand (QC): 4 Chair/Hpj-ek-Mduxh Xfer(QC): 4 PT Plan Problem List Problem List: Activity Tolerance, Functional Strength, Safety, Balance, Gait, Transfer, Bed Mobility, ROM Treatment/Plan Treatment Plan: Continue Plan of Care Treatment Plan: Bed Mobility, Education, Functional Activity Ruthie, Functional Strength, Gait, Safety, Therapeutic Exercise, Transfers Treatment Duration: Feb 20, 2022 Frequency: 6 times per week Estimated Hrs Per Day: .25 hour per day Patient and/or Family Agrees t: Yes Safety Risks/Education Patient Education: Correct Positioning, Safety Issues Teaching Recipient: Patient Teaching Methods: Demonstration, Discussion Response to Teaching: Reinforcement Needed Discharge Recommendations Plan Patient will perform bed mobility and transfer training, balance and endurance training, functional strengthening, gait training, and education, to improve functional mobility and independence at home. Therapy Discharge Recommendati: Other, See Comments (NH) Time Time In: 804 Time Out: 817 DATE: Feb 13, 2022 Total Billed Treatment Time: 13 Total Billed Treatment 1 visit MOSES MUÑIZ PT Feb 13, 2022 08:40
[2022-02-13 09:03] LABS: CHOLESTEROL 133 MG/DL (< 200); HDL CHOLESTEROL 35 MG/DL (40-60); TRIGLYCERIDES 196 MG/DL (<150); VLDL CHOLESTEROL 39 MG/DL (5-40)
--- NOTE | 2022-02-13 09:19 | Consultation-Cardiology ---
HPI-Cardiology Cardiology Consultation: Date of Consultation 02/13/22 Date of Admission 02/12/22 Attending Physician Amauri Peralta MD Admitting Physician Admitting Physician: Teressa Goodrich DO Attending Physician: Teressa Goodrich DO Consulting Physician CANDY MUNSON JR, MD HPI: Time Seen by a Provider: 09:14 Chief Complaint: REASON FOR CONSULTATION: Bradycardia. I had the pleasure of seeing Juliet in the intensive care unit at [facility] in [place], [place] this morning. She normally follows with a voice over announcer at [facility] in [place], [place]. She has a history of coronary artery disease that is reportedly inoperable, previous stroke with mild residual left-sided weakness, hypertension, hyperlipidemia, type 2 diabetes mellitus, chronic kidney disease obesity. She is currently residing at [facility] on the assisted care living unit. She was well until yesterday morning when the staff tried to wake her up and could not arouse her. They checked her heart rate and it was reported to be in the 30s and they called rescue and she was brought to the emergency room. She was found to have heart rates in the 30s and she was admitted to the hospital. She states for the past couple years she has been having intermittent falls and nobody seems to be able to determine why this happens. She does have some mild dyspnea on exertion at times. She denies chest discomfort. She denies paroxysmal nocturnal dyspnea, orthopnea or palpitations. From time to time she will have lightheaded spells or dizziness but denies any syncope. She has had mild bilateral lower extremity edema for about the past 4 months. Because of the bradycardia, a cardiology consultation was requested. Certain portions of this document may have been dictated utilizing voice recognition technology. Inherent to this technology, typographical and grammatical errors may exist. As much as I am diligent to identify and correct these mistakes, some errors may remain in the document. Review of Systems-Cardiology Review of Systems Other comments Review of 10 organ systems is as per the history of present illness, otherwise negative. HUY-[id number]-Hqrzvh Hx Patient Social History Marrital Status: Smoking Status: Never a Smoker 2nd Hand Smoke Exposure: Yes Have you traveled recently?: No Alcohol Use?: No Pt feels they are or have been: No Immunizations Up To Date Tetanus Booster (TDap): Unknown Date of Pneumonia Vaccine: Mar 07, 2014 Date of Influenza Vaccine: Jan 03, 2022 Past Medical History PMH As described under Assessment. Family Medical History Family History: Cancer (lung and ovarian) 09 BROTHER, Onset:30's - 40 09 SISTER, Onset:60 years & older Congenital heart disease (mitral valve prolapse) 09 SISTER 09 SISTER Congestive heart failure 03 FATHER, Onset:60 years & older 03 MOTHER, Onset:50's - 60 09 SISTER, Onset:60 years & older Family history: Arthritis 03 MOTHER, Onset:60 years & older Family history: Diabetes mellitus 03 FATHER, Onset:60 years & older 09 SISTER, Onset:50's - 60 Family history: Gastrointestinal disease 03 FATHER, Onset:50's - 60 Hereditary disease (HTN) 09 SISTER, Onset:40's - 50 History of - disorder (Urinary problems) 09 SISTER, Onset:60 years & older 09 SISTER, Onset:20's - 25 History of - respiratory disease (asthma) 09 SISTER Hypercholesterolemia 09 SISTER, Onset:50's - 60 Psychotic disorder (anxiety) 09 SISTER, Onset:30's - 40 Allergies and Home Medications Allergies Coded Allergies: codeine (Verified Allergy, Severe, SOA, pt has rec Lortab, Percocet, morphine in the past, 11/17/20) bupropion (Verified Allergy, Mild, 11/16/20) COUGH isosorbide (Verified Allergy, Mild, 11/16/20) COUGH levofloxacin (Verified Allergy, Mild, 11/16/20) COUGH ramipril (Verified Allergy, Mild, 11/16/20) COUGH celecoxib (Unverified Allergy, Unknown, 03/08/15) cinacalcet (Verified Allergy, Unknown, 03/07/20) clarithromycin (Verified Allergy, Unknown, 03/07/20) hydrocodone (Verified Adverse Reaction, Unknown, 11/16/20) HYPOTENSION Patient Home Medication List Home Medication List Reviewed: Yes Acetaminophen (Acetaminophen) 500 Mg Tablet, 1,000 MG PO Q6H PRN for PAIN-MILD (1-4) OR TEMPATURE, (Reported) Entered as Reported by: KIKO CABELLO on 11/16/20 0900 Allopurinol (Allopurinol) 100 Mg Tablet, 100 MG PO DAILY, (Reported) Entered as Reported by: АНДРЕЙ MAK on 09/10/20 1148 Amlodipine Besylate (Amlodipine Besylate) 5 Mg Tablet, 5 MG PO DAILY, (Reported) Entered as Reported by: KIKO CABELLO on 11/16/20 0851 Ascorbate Calcium (Vitamin C) 500 Mg Tablet, 500 MG PO BID, (Reported) Entered as Reported by: KIKO CABELLO on 11/16/20 09 Aspirin (Aspirin EC) 81 Mg Tablet.dr, 81 MG PO DAILY, (Reported) Entered as Reported by: АНДРЕЙ MAK on 09/14/20 1539 Atenolol (Atenolol) 25 Mg Tablet, 25 MG PO DAILY, (Reported) Entered as Reported by: АНДРЕЙ MAK on 09/10/20 1151 Atorvastatin Calcium (Atorvastatin Calcium) 80 Mg Tablet, 80 MG PO HS, (Reported) Entered as Reported by: АНДРЕЙ MAK on 09/10/20 1148 Clopidogrel Bisulfate (Plavix) 75 Mg Tablet, 75 MG PO DAILY, (Reported) Entered as Reported by: АНДРЕЙ MAK on 09/14/20 1539 Diclofenac Sodium (Voltaren Arthritis Pain) 20 Gm Gel..gram., 4 GM TP QID, (Reported) Entered as Reported by: KIKO CABELLO on 11/16/20 09 Docusate Sodium (Colace) 100 Mg Capsule, 100 MG PO BID, (Reported) Entered as Reported by: KIKO CABELLO on 11/16/20 09 Insulin NPH Human Isophane (Novolin N) 100 Unit/1 Ml Vial, 30 UNIT SQ HS, (Reported) Entered as Reported by: KIKO CABELLO on 11/16/20 08 Insulin NPH Human Isophane (Novolin N) 100 Unit/1 Ml Vial, 20 UNIT SQ DAILY, (Reported) Entered as Reported by: KIKO CABELLO on 11/16/20 08 Insulin Regular, Human (Humulin R) 1,000 Units/10 Ml Soln, 10 UNITS SQ TIDAC, (Reported) Entered as Reported by: KIKO CABELLO on 11/16/20 08 Losartan Potassium (Losartan Potassium) 100 Mg Tablet, 100 MG PO DAILY, (Repo rted) Entered as Reported by: АНДРЕЙ MAK on 09/10/20 1148 Magnesium Citrate (Magnesium Citrate) 296 Ml Solution, 296 ML PO DAILY PRN for CONSTIPATION-9TH LINE, (Reported) Entered as Reported by: KIKO CABELLO on 11/16/20 0900 Meclizine HCl (Meclizine HCl) 25 Mg Tablet, 25 MG PO BID PRN PRN for NAUSEA/VOMITING, (Reported) Entered as Reported by: KIKO CABELLO on 11/16/20 0900 Melatonin (Melatonin) 5 Mg Tablet, 5 MG PO HS, (Reported) Entered as Reported by: АНДРЕЙ MAK on 11/17/20 1307 Metoclopramide HCl (Metoclopramide HCl) 10 Mg Tablet, 10 MG PO BID PRN for NAUSEA/VOMITING-3RD LINE, (Reported) Entered as Reported by: АНДРЕЙ MAK on 09/10/20 1151 Naproxen Sodium (Aleve) 220 Mg Tablet, 220 MG PO Q12H PRN for PAIN-MILD (1-4), (Reported) Entered as Reported by: KIKO CABELLO on 11/16/20 0851 Oxybutynin Chloride (Oxybutynin Chloride ER) 5 Mg Tab.er.24, 5 MG PO DAILY, (Reported) Entered as Reported by: АНДРЕЙ MAK on 03/08/20 1331 Oxycodone HCl/Acetaminophen (Percocet 5-325 mg Tablet) 1 Each Tablet, 1 TAB PO Q4H PRN for PAIN-MODERATE (5-7), (Reported) Entered as Reported by: KIKO CABELLO on 11/16/20 0851 Pantoprazole Sodium (Pantoprazole Sodium) 40 Mg Tablet.dr, 40 MG PO DAILY, (Reported) Entered as Reported by: KIKO CABELLO on 11/16/20 0851 Promethazine HCl (Promethazine HCl) 12.5 Mg Tablet, 12.5 MG PO Q6H PRN for NAUSE A/VOMITING Prescribed by: ISHA LUNDY on 09/24/21 1255 Ranolazine (Ranexa) 1,000 Mg Tab.er.12h, 1,000 MG PO BID, (Reported) Entered as Reported by: CARMELO PETERS on 08/26/18 1218 Sennosides/Docusate Sodium (Stool Softener-Laxative Tablet) 1 Each Tablet, 1 EACH PO BID, (Reported) Entered as Reported by: KIKO CABELLO on 11/16/20 0851 Sertraline HCl (Sertraline HCl) 25 Mg Tablet, 25 MG PO HS, (Reported) Entered as Reported by: АНДРЕЙ MAK on 03/08/20 1331 Exam Vital Signs Vital Signs Date Time Temp Pulse Resp B/P (MAP) Pulse Ox O2 Delivery O2 Flow Rate FiO2 02/13/22 12:00 101 22 163/90 (114) 95 Room Air 02/13/22 11:52 36.7 02/12/22 13:00 2.00 Physical Exam General: Alert. No acute distress. Well nourished and appears stated age. She is obese. Eye: Extraocular movements are intact. Conjunctivae are clear. There are no xanthelasma. HENT: Normocephalic. Atraumatic. Carotid pulsations 2/2 without bruits. Neck: Jugular venous pressure does not appear elevated. No thyromegaly appreciated. Respiratory: Lungs are clear to auscultation. Respirations are non-labored. Breath sounds are equal. Symmetrical chest wall expansion. Cardiovascular: Normal rate. Regular rhythm. 2/6 holosystolic murmur. No gallop. Point of maximal impulse is not appear displaced. Good pulses equal in all extremities. Trace bilateral pretibial edema. Gastrointestinal: Soft. Normal bowel sounds. Skin: Skin turgor is normal. There is no pallor. Musculoskeletal: No kyphosis or scoliosis appreciated. Neurologic: Alert and oriented to person, place, time. Slight left facial droop , otherwise cranial nerves 3-12 appear grossly intact. The patient has good motor tone strength in the upper and lower extremities bilaterally. Psychiatric: Cooperative. Appropriate mood & affect. Labs Laboratory Tests Test 02/12/22 13:05 02/12/22 17:05 02/12/22 21:01 02/12/22 21:55 Range/Units White Blood Count 8.5 4.3-11.0 10^3/uL Red Blood Count 3.50 L 3.80-5.11 10^6/uL Hemoglobin 11.6 11.5-16.0 g/dL Hematocrit 35 35-52 % Mean Corpuscular Volume 100 H 80-99 fL Mean Corpuscular Hemoglobin 33 25-34 pg Mean Corpuscular Hemoglobin Concent 33 32-36 g/dL Red Cell Distribution Width 13.6 10.0-14.5 % Platelet Count 158 130-400 10^3/uL Mean Platelet Volume 11.6 9.0-12.2 fL Immature Granulocyte % (Auto) 1 % Neutrophils (%) (Auto) 66 42-75 % Lymphocytes (%) (Auto) 28 12-44 % Monocytes (%) (Auto) 5 0-12 % Eosinophils (%) (Auto) 1 0-10 % Basophils (%) (Auto) 0 0-10 % Neutrophils # (Auto) 5.6 1.8-7.8 10^3/uL Lymphocytes # (Auto) 2.4 1.0-4.0 10^3/uL Monocytes # (Auto) 0.4 0.0-1.0 10^3/uL Eosinophils # (Auto) 0.1 0.0-0.3 10^3/uL Basophils # (Auto) 0.0 0.0-0.1 10^3/uL Immature Granulocyte # (Auto) 0.1 0.0-0.1 10^3/uL Prothrombin Time 13.8 12.2-14.7 SEC INR Comment 1.0 0.8-1.4 Activated Partial Thromboplast Time 29 24-35 SEC Sodium Level 136 137 137 135-145 MMOL/L Potassium Level 6.4 H 6.1 H 5.2 H 3.6-5.0 MMOL/L Chloride Level 109 H 107 109 H 98-107 MMOL/L Carbon Dioxide Level 19 L 22 20 L 21-32 MMOL/L Anion Gap 8 8 8 5-14 MMOL/L Blood Urea Nitrogen 30 H 33 H 32 H 7-18 MG/DL Creatinine 2.02 H 2.19 H 2.06 H 0.60-1.30 MG/DL Estimat Glomerular Filtration Rate 27 24 26 BUN/Creatinine Ratio 15 15 16 Glucose Level 266 H 248 H 183 H 70-105 MG/DL Calcium Level 9.3 9.6 9.3 8.5-10.1 MG/DL Corrected Calcium 9.6 8.5-10.1 MG/DL Magnesium Level 1.6 1.6-2.4 MG/DL Total Bilirubin 0.6 0.1-1.0 MG/DL Aspartate Amino Transf (AST/SGOT) 22 5-34 U/L Alanine Aminotransferase (ALT/SGPT) 24 0-55 U/L Alkaline Phosphatase 58 40-136 U/L Myoglobin 123.2 H 10.0-92.0 NG/ML Troponin I < 0.028 <0.028 NG/ML Total Protein 6.2 L 6.4-8.2 GM/DL Albumin 3.6 3.2-4.5 GM/DL Total Creatine Kinase 34 29-168 U/L Glucometer 163 H 70-110 MG/DL Test 02/13/22 04:50 02/13/22 10:26 Range/Units White Blood Count 6.9 4.3-11.0 10^3/uL Red Blood Count 3.24 L 3.80-5.11 10^6/uL Hemoglobin 10.8 L 11.5-16.0 g/dL Hematocrit 33 L 35-52 % Mean Corpuscular Volume 100 H 80-99 fL Mean Corpuscular Hemoglobin 33 25-34 pg Mean Corpuscular Hemoglobin Concent 33 32-36 g/dL Red Cell Distribution Width 13.3 10.0-14.5 % Platelet Count 130 130-400 10^3/uL Mean Platelet Volume 11.4 9.0-12.2 fL Immature Granulocyte % (Auto) 1 % Neutrophils (%) (Auto) 57 42-75 % Lymphocytes (%) (Auto) 34 12-44 % Monocytes (%) (Auto) 8 0-12 % Eosinophils (%) (Auto) 1 0-10 % Basophils (%) (Auto) 0 0-10 % Neutrophils # (Auto) 3.9 1.8-7.8 10^3/uL Lymphocytes # (Auto) 2.3 1.0-4.0 10^3/uL Monocytes # (Auto) 0.6 0.0-1.0 10^3/uL Eosinophils # (Auto) 0.1 0.0-0.3 10^3/uL Basophils # (Auto) 0.0 0.0-0.1 10^3/uL Immature Granulocyte # (Auto) 0.1 0.0-0.1 10^3/uL Percent Immature Platelet Fraction 7.5 0.0-7.6 % Sodium Level 139 135-145 MMOL/L Potassium Level 4.5 3.6-5.0 MMOL/L Chloride Level 111 H 98-107 MMOL/L Carbon Dioxide Level 19 L 21-32 MMOL/L Anion Gap 9 5-14 MMOL/L Blood Urea Nitrogen 29 H 7-18 MG/DL Creatinine 1.86 H 0.60-1.30 MG/DL Estimat Glomerular Filtration Rate 30 BUN/Creatinine Ratio 16 Glucose Level 118 H 70-105 MG/DL Calcium Level 9.5 8.5-10.1 MG/DL Corrected Calcium 9.9 8.5-10.1 MG/DL Phosphorus Level 1.9 L 2.3-4.7 MG/DL Magnesium Level 1.4 L 1.6-2.4 MG/DL Total Bilirubin 0.4 0.1-1.0 MG/DL Aspartate Amino Transf (AST/SGOT) 19 5-34 U/L Alanine Aminotransferase (ALT/SGPT) 23 0-55 U/L Alkaline Phosphatase 50 40-136 U/L Total Protein 6.0 L 6.4-8.2 GM/DL Albumin 3.5 3.2-4.5 GM/DL Triglycerides Level 196 H <150 MG/DL Cholesterol Level 133 < 200 MG/DL LDL Cholesterol Direct 60 1-129 MG/DL VLDL Cholesterol 39 5-40 MG/DL HDL Cholesterol 35 L 40-60 MG/DL Thyroid Stimulating Hormone (TSH) 0.20 L 0.35-4.94 UIU/ML Glucometer 193 H 70-110 MG/DL Radiology ECHOCARDIOGRAM (02/13/2022): 1. Left ventricle: The cavity size is normal. There is moderate concentric h ypertrophy. Systolic function is normal. The estimated ejection fraction is 60- 65%. There were no regional wall motion abnormalities identified. Left ventricular diastolic function parameters are normal. 2. Left atrium: The left atrium is moderately dilated with a volume index of 45 mL/m. 3. Mitral valve: There is mild mitral regurgitation. 4. Pulmonary arteries: The estimated pulmonary artery systolic pressure is 38 mmHg assuming a right atrial pressure of 8 mmHg. 5. The report from the previous study performed on 03/08/2020, left ventricular hypertrophy was not noted on the previous report. ECG Impression ECG Comment Her initial EKG on 02/12 around 13:07 showed sinus bradycardia at 33 bpm with occasional junctional escape beats low voltage in the limb leads and possible old inferior myocardial infarction. Follow-up electrocardiogram on 02/12 at 15:38 showed sinus bradycardia at 55 bpm with low voltage in the limb leads. Diagnosis/Problems Diagnosis/Problems (1) Symptomatic bradycardia Assessment & Plan: This may be due to the atenolol she was taking. Additionally, she also had hyperkalemia at the time of presentation which could have been contributing to the bradycardia. This morning she was having heart rates in the low 100 bpm range. I suggest we hold the atenolol for the time being. If she develops recurrent tachycardia which is the reason she was given beta-abel in the first place, we could consider restarting a lower dose of atenolol once the potassium level returns to normal. (2) Coronary artery disease involving [place] coronary artery with angina pectoris Assessment & Plan: She reportedly has an operable small vessel disease. I recommend she continue on aspirin and statin medication. As above, beta-abel is currently on hold due to bradycardia. She should continue on ranolazine. (3) Supraventricular tachycardia Status: Acute Assessment & Plan: This was the apparent reason she had been placed on beta- abel years ago. We will continue to monitor her on telemetry while she is here in the hospital. (4) Primary hypertension Assessment & Plan: Continue outpatient antihypertensive medications but stop atenolol as outlined above. (5) Mixed hyperlipidemia Assessment & Plan: Continue atorvastatin. (6) Hyperkalemia Assessment & Plan: Etiology unclear. This could be related to the acute kidney injury. The hyperkalemia may have also contributed to the bradycardia. The hospitalist is managing this condition. I would make sure she is not taking any potassium supplementation at home. (7) Acute kidney injury superimposed on chronic kidney disease Assessment & Plan: She has received some intravenous fluids for the acute kidney injury. (8) History of cerebrovascular accident with residual deficit Assessment & Plan: Continue aspirin and statin medication. She has also been on prolonged therapy with clopidogrel. Unclear whether this was given for her coronary artery disease or the previous stroke. (9) Type 2 diabetes mellitus with complication Assessment & Plan: This is being managed by the primary provider. (10) Obesity Assessment & Plan: She needs to work on weight loss. She has been counseled in this regard. CANDY MUNSON JR, MD Feb 13, 2022 09:19
[2022-02-13] MEDS ORDERED: RT-ALBUTEROL SULF 2.5 MG/3 ML PRE-MIX VIAL INH PRN (10:30)
--- NOTE | 2022-02-13 13:50 | Occupational Therapy Eval ---
OT Evaluation-General/PLF Medical Diagnosis Admission Date Feb 12, 2022 at 14:10 Medical Diagnosis: bradycardia Onset Date: Feb 12, 2022 Therapy Diagnosis Therapy Diagnosis: reduced endurance Height/Weight Height (Feet): 5 Height (Inches): 6.00 Weight (Pounds): 220 Weight (Ounces): 10.0 Precautions Precautions/Isolations: Fall Prevention, Standard Precautions Referral Physician: Teressa Goodrich DO Referral Reason: Evaluation/Treatment Medical History Pertinent Medical History: Arthritis, CAD, CVA (with mild L sided residual weakness ), DM, HTN, Hypothroidism, AR, Neuropathy Current History Pt presented to hospital with a HR of 30bpm. Per patient, she resides at [facility]. She states she is indep with adls and has "supervision" when taking showers due to history of falls. She no longer walks but can can stand and pivot into w/c indep. The facility completes all IADLs. Reviewed History: Yes Social History Home: Assisted Living ADL-Prior Level of Function SCALE: Activities may be completed with or without assistive devices. 6-Ipkjeqsqad-ozmfjpk completes the activity by him/herself with no assistance from a helper. 5-Set-up or Clean-up Assistance-helper sets up or cleans up; patient completes activity. [place] assists only prior to or following the activity. 4-Supervision or Touching Assistance-helper provides verbal cues and/or touching/steadying and/or contact guard assistance as patient completes activity. Assistance may be provided throughout the activity or intermittently. 3-Partial/Moderate Assistance-helper does LESS THAN HALF the effort. [place] lifts, holds or supports trunk or limbs, but provides less than half the effort. 2-Substantial/Maximal Assistance-helper does MORE THAN HALF the effort. [place] lifts or holds trunk or limbs and provides more than half the effort. 6-Grxwxcaos-nxjbsa does ALL the effort. Patient does none of the effort to complete the activity. Or, the assistance of 2 or more helpers is required for the patient to complete the activity. If activity was not attempted, code reason: 7-Patient Refused. 9-Not Applicable-not attempted and the patient did not perform the activity before the current illness, exacerbation or injury. 10-Not Attempted due to Environmental Limitations-(lack of equipment, weather restraints, etc.). 88-Not Attempted due to Medical Conditions or Safety Concerns. Self Care: Independent Functional Cognition: Needed Some Help DME/Equipment: Bath Chair, Grab Bars, Shower Drive Self: No OT Current Status Subjective Pt denies pain, reports feeling slightly better. Appearance Pt left supine in bed, all needs within reach at OT departure, RN entering room. Mental Status/Objective Patient Orientation: Person, Place, Situation Attachments: Leiva Catheter, IV, Telemetry Current Hearing Aids: No Hand Dominance: Right Upper Extremity ROM WFL L wrist radially deviated but flexion/extension within functional limits. Pt reports this is due to old fx from a fall. Upper Extremity Strength 4/5 throughout ADL-Treatment Eating (QC): 5 Oral Hygiene (QC): 5 Pt declined sitting on side of the bed due to c/o dizziness when moving. Educa tion on importance of mobility. Pt declined oral care but agreeable to complete later if OT provided supplies. Pt completed AROM exercises 1x10 all planes. Pt would benefit from added resistance next session. Education OT Patient Education: Correct positioning, Exercise program, Modified ADL techniques, Purpose of tx/functional activities, Rehab process, Safety issues Teaching Recipient: Patient Teaching Methods: Demonstration, Discussion Response to Teaching: Verbalize Understanding, Return Demonstration, Reinforcement Needed OT Sales Consultant Residential Manager Goals Sales Consultant Residential Manager Goals Time Frame: Feb 24, 2022 Toileting Hygiene (QC): 4 Shower/Bathe Self (QC): 4 Upper Body Dressing (QC): 4 Lower Body Dressing (QC): 4 On/Off Footwear (QC): 4 Additional Goals: 1-Demonstrate ADL Tasks, 2-Verbalize Understanding, 3- ImproveStrength/Ruthie 1=Demonstrate adherence to instructed precautions during ADL tasks. 2=Patient will verbalize/demonstrate understanding of assistive devices/modifications for ADL. 3=Patient will improve strength/tolerance for activity to enable patient to perform ADL's. OT Education/Plan Problem List/Assessment Assessment: Decreased Activ Tolerance, Decreased UE Strength, Impaired Bed Mobility, Impaired Funct Balance, Impaired Self-Care Skills Discharge Recommendations Plan/Recommendations: Continue POC Therapy Discharge Recommendati: Post Acute OT Treatment Plan/Plan of Care Treatment,Training & Education: Yes Patient would benefit from OT for education, treatment and training to promote independence in ADL's, mobility, safety and/or upper extremity function for ADL's. Plan of Care: ADL Retraining, Functional Mobility, Group Exercise/Act as Ind, UE Funct Exercise/Act, W/C Management Training Treatment Duration: Feb 24, 2022 Frequency: 3 times per week (3-5x/week ) Estimated Hrs Per Day: .25 hour per day Rehab Potential: Guarded Time Start Time: 13:30 Stop Time: 13:42 DATE: Feb 13, 2022 Total Time Billed (hr/min): 12 Billed Treatment Time 1 visit María Elena Cintron OT Feb 13, 2022 13:50
[2022-02-13] MEDS ORDERED: ALPR0.5T7 PO (14:37)
[2022-02-13] MEDS ORDERED: ERGO1250 PO (14:37)
[2022-02-13] MEDS ORDERED: PROM12.511 PO (14:37)
[2022-02-13] MEDS ORDERED: GABA-486 PO (14:37)
[2022-02-13] MEDS ORDERED: ALBU0.63 IH (14:37)
[2022-02-13] MEDS ORDERED: AMLO-251 PO (14:37)
[2022-02-13] MEDS ORDERED: LOPE-175 PO (14:37)
[2022-02-14] MEDS ORDERED: PROMETHAZINE 25 MG (PHENERGAN) TAB PO ONE (00:15)
[2022-02-14] MEDS ORDERED: hydrALAZINE (APESOLINE) 20 MG/ML VIAL IV ONE (00:15)
[2022-02-14] MEDS ORDERED: PROMETHAZINE 25 MG (PHENERGAN) TAB ONE (00:21)
[2022-02-14] MEDS ORDERED: hydrALAZINE (APESOLINE) 20 MG/ML VIAL ONE (00:21)
[2022-02-14] MEDS: NS IV 1000 ML 1,000 ML IV SCH ×3 (05:06→21:33)
[2022-02-14 05:40] LABS: BASOPHILS % (AUTO) 1 % (0-10); EOSINOPHILS # (AUTO) 0.1 10^3/uL (0.0-0.3); EOSINOPHILS % (AUTO) 1 % (0-10); HEMATOCRIT 36 % (35-52); HEMOGLOBIN 11.8 g/dL (11.5-16.0); LYMPHOCYTES # (AUTO) 2.5 10^3/uL (1.0-4.0); LYMPHOCYTES % (AUTO) 28 % (12-44); MEAN CORPUSCULAR HEMOGLOBIN 33 pg (25-34); MEAN CORPUSCULAR HGB CONC 33 g/dL (32-36); MEAN CORPUSCULAR VOLUME 100 fL (80-99); MEAN PLATELET VOLUME 11.3 fL (9.0-12.2); MONOCYTES # (AUTO) 0.6 10^3/uL (0.0-1.0); MONOCYTES % (AUTO) 7 % (0-12); NEUTROPHILS # (AUTO) 5.4 10^3/uL (1.8-7.8); NEUTROPHILS % (AUTO) 63 % (42-75); PLATELET COUNT 146 10^3/uL (130-400); WHITE BLOOD COUNT 8.7 10^3/uL (4.3-11.0)
[2022-02-14 06:00] LABS: ALBUMIN 3.7 GM/DL (3.2-4.5); BILIRUBIN,TOTAL 0.6 MG/DL (0.1-1.0); CALCIUM 9.5 MG/DL (8.5-10.1); CREATININE SERUM 1.4 MG/DL (0.60-1.30); MAGNESIUM 1.4 MG/DL (1.6-2.4); PHOSPHORUS 2.3 MG/DL (2.3-4.7); POTASSIUM 4.4 MMOL/L (3.6-5.0); TOTAL PROTEIN 6.7 GM/DL (6.4-8.2)
[2022-02-14] MEDS: inSUlin ASPART (NovoLOG) 1 UNIT/0.01 ML (CHARGE PER UNIT) SC SCH ×4 (06:02→19:45)
[2022-02-14] MEDS: MAGNESIUM 1 GM/100 ML IVPB 100 ML IV SCH ×3 (06:03→07:30)
[2022-02-14] MEDS: KCL 20 MEQ TAB (K-DUR) PO SCH (06:04)
[2022-02-14] MEDS: DOCUSATE SODIUM 100 MG (COLACE) CAP PO SCH ×2 (08:19→19:46)
[2022-02-14] MEDS: SENNOSIDES 8.6 MG (SENOKOT) TAB PO SCH ×2 (08:19→19:46)
--- NOTE | 2022-02-14 08:21 | Progress Note ---
Subjective Date Seen by a Provider: Feb 14, 2022 Time Seen by a Provider: 07:05 Subjective/Events-last exam patient appears to be in no acute distress. She does not admit to any shortness of breath and certainly no cough. She has not had any fever. Objective Exam Vital Signs Date Time Temp Pulse Resp B/P (MAP) Pulse Ox O2 Delivery O2 Flow Rate FiO2 02/14/22 07:55 37.3 02/14/22 07:48 96 Room Air 02/14/22 06:00 96 28 152/80 (104) 94 Nasal Cannula 2.00 02/14/22 05:00 98 28 146/81 (102) 94 Nasal Cannula 2.00 02/14/22 04:30 103 17 164/81 (108) 93 Nasal Cannula 2.00 02/14/22 04:10 36.8 Nasal Cannula 2.00 02/14/22 04:00 95 Nasal Cannula 2.00 02/14/22 03:00 101 24 151/89 (109) 93 Nasal Cannula 2.00 02/14/22 02:09 102 36 147/81 (103) 93 Nasal Cannula 2.00 02/14/22 01:00 100 23 175/98 (123) 94 Nasal Cannula 2.00 02/14/22 01:00 100 02/14/22 00:44 95 Room Air 02/14/22 00:03 100 22 173/96 (121) 92 Nasal Cannula 2.00 02/13/22 23:54 37.0 02/13/22 23:05 93 Nasal Cannula 2.00 02/13/22 23:00 98 34 150/76 (100) 93 Nasal Cannula 2.00 02/13/22 22:53 Nasal Cannula 2.00 02/13/22 22:00 98 25 156/89 (111) 92 Room Air 02/13/22 21:00 98 28 154/90 (111) 87 Room Air 02/13/22 20:00 97 11 146/87 (106) 92 Room Air 02/13/22 19:45 94 Room Air 02/13/22 19:39 37.1 02/13/22 19:00 95 02/13/22 19:00 97 16 116/89 (98) 94 Room Air 02/13/22 18:00 99 18 138/100 (113) 94 Room Air 02/13/22 17:00 97 25 160/82 (108) 94 Room Air 02/13/22 16:12 95 Room Air 02/13/22 16:00 37.0 02/13/22 16:00 97 26 172/103 (126) 93 Room Air 02/13/22 15:45 96 26 167/102 (123) 93 Room Air 02/13/22 13:00 98 24 157/81 (106) 94 Room Air 02/13/22 12:39 98 02/13/22 12:00 101 22 163/90 (114) 95 Room Air 02/13/22 11:52 36.7 02/13/22 11:51 94 Room Air 02/13/22 11:00 23 23 145/76 (99) 95 Room Air 02/13/22 10:00 10 25 153/94 (113) 95 Room Air 02/13/22 09:00 101 15 150/102 (118) 96 Room Air 02/13/22 08:47 96 Room Air I & O 02/14/22 07:00 Intake Total 4150 ml Output Total 2400 ml Balance 1750 ml Capillary Refill : Less Than 3 Seconds General Appearance: No Apparent Distress Neck: Full Range of Motion Respiratory: Chest Non Tender, Lungs Clear Cardiovascular: Regular Rate, Rhythm Results Lab Laboratory Tests 02/13/22 10:26: Glucometer 193H 02/13/22 16:31: Glucometer 170H 02/14/22 04:38: White Blood Count 8.7, Red Blood Count 3.57L, Hemoglobin 11.8, Hematocrit 36, Mean Corpuscular Volume 100H, Mean Corpuscular Hemoglobin 33, Mean Corpuscular Hemoglobin Concent 33, Red Cell Distribution Width 13.4, Platelet Count 146, Mean Platelet Volume 11.3, Immature Granulocyte % (Auto) 1, Neutrophils (%) (Auto) 63, Lymphocytes (%) (Auto) 28, Monocytes (%) (Auto) 7, Eosinophils (%) (Auto) 1, Basophils (%) (Auto) 1, Neutrophils # (Auto) 5.4, Lymphocytes # (Auto) 2.5, Monocytes # (Auto) 0.6, Eosinophils # (Auto) 0.1, Basophils # (Auto) 0.0, Immature Granulocyte # (Auto) 0.1, Sodium Level 140, Potassium Level 4.4, Chloride Level 111H, Carbon Dioxide Level 18L, Anion Gap 11, Blood Urea Nitrogen 20H, Creatinine 1.40H, Estimat Glomerular Filtration Rate 41, BUN/Creatinine Ratio 14, Glucose Level 149H, Calcium Level 9.5, Corrected Calcium 9.7, Phosphorus Level 2.3, Magnesium Level 1.4L, Total Bilirubin 0.6, Aspartate Amino Transf (AST/SGOT) 26, Alanine Aminotransferase (ALT/SGPT) 22, Alkaline Phosphatase 58, Total Protein 6.7, Albumin 3.7 02/14/22 06:02: Glucometer 148H Assessment/Plan Assessment/Plan Assess & Plan/Chief Complaint 1. Bradycardiasymptomatic -she has been on atenolol in the past for her hypertension and not had any issues with bradycardia. 2. Hypertension -Will hold the atenolol for now and see how her blood pressure responds. 02/14 -BP is returning to slightly elevated. -will await cardiology input if low dose atenolol may be restarted 3. Diabetes mellitus -Stay on regular diabetic regimen as she was outpatient 4. Right lower lung consolidation, ? pleural effusion. This point she is afebrile and not mounting a white blood cell count. -repeat CXR vs CT chest Clinical Quality Measures Admission Status Admission Dx 1. Bradycardiasymptomatic 2. Hypertension 3. Diabetes mellitus 4. Right lower lung consolidation, ? pleural effusion PATRICE RODNEY MD Feb 14, 2022 08:21
--- NOTE | 2022-02-14 08:41 | Physical Therapy Progress Note ---
Therapy Progress Note Patient refuses therapy due to being tired. Explained the benefits of therapy to patient but she continues to refuse. Will check back later if able. MOSES SPAULDING PT Feb 14, 2022 08:41
--- NOTE | 2022-02-14 09:56 | Occupational Ther Daily Note ---
OT Current Status-Daily Note Subjective Pt alert, lying in bed. HERRERA assisted nrsg with cleansing and rolling pt in bed. Pt declined further therapy stating that she felt to nauseous. Mental Status/Objective Patient Orientation: Person, Place, Time, Situation Attachments: IV, Telemetry ADL-Treatment Pt able to roll side to side with min A x1 then assist x2 to scoot up in bed. Oral care supplies left within reach for pt to complete when she feels able. Supplies were also left yesterday and were not used. After session, pt lying in bed with call light/phone in reach. Visitor present in room. Therapy Code Descriptions/Definitions Functional [place]t Measure: 0=Not Assessed/NA 4=Minimal Assistance 1=Total Assistance 5=Supervision or Setup 2=Maximal Assistance 6=Modified Routt 3=Moderate Assistance 7=Complete IndependenceSCALE: Activities may be completed with or without assistive devices. 5-Npejszivdk-dqpmqfw completes the activity by him/herself with no assistance from a helper. 5-Set-up or Clean-up Assistance-helper sets up or cleans up; patient completes activity. [place] assists only prior to or following the activity. 4-Supervision or Touching Assistance-helper provides verbal cues and/or touching/steadying and/or contact guard assistance as patient completes activity. Assistance may be provided throughout the activity or intermittently. 3-Partial/Moderate Assistance-helper does LESS THAN HALF the effort. [place] lifts, holds or supports trunk or limbs, but provides less than half the effort. 2-Substantial/Maximal Assistance-helper does MORE THAN HALF the effort. [place] lifts or holds trunk or limbs and provides more than half the effort. 0-Tbflbhjyu-qaimrm does ALL the effort. Patient does none of the effort to complete the activity. Or, the assistance of 2 or more helpers is required for the patient to complete the activity. If activity was not attempted, code reason: 7-Patient Refused. 9-Not Applicable-not attempted and the patient did not perform the activity before the current illness, exacerbation or injury. 10-Not Attempted due to Environmental Limitations-(lack of equipment, weather restraints, etc.). 88-Not Attempted due to Medical Conditions or Safety Concerns. 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 2=Patient will verbalize/demonstrate understanding of assistive devices/modifications for ADL. 3=Patient will improve strength/tolerance for activity to enable patient to perform ADL's. OT Education/Plan Problem List/Assessment Assessment: Decreased Activ Tolerance, Impaired Bed Mobility, Impaired Self- Care Skills Discharge Recommendations Plan/Recommendations: Continue POC Treatment Plan/Plan of Care Patient would benefit from OT for education, treatment and training to promote independence in ADL's, mobility, safety and/or upper extremity function for ADL's. Plan of Care: ADL Retraining, Functional Mobility, Group Exercise/Act as Ind, UE Funct Exercise/Act, W/C Management Training Treatment Duration: Feb 24, 2022 Frequency: 3 times per week (3-5x/week ) Estimated Hrs Per Day: .25 hour per day Rehab Potential: Guarded Time Start Time: 09:39 Stop Time: 09:49 DATE: Feb 14, 2022 Total Time Billed (hr/min): 10 Billed Treatment Time 1 visit-ADL 1 (10 min) SARABJIT SANDOVAL Feb 14, 2022 09:56
--- NOTE | 2022-02-14 11:19 | Physical Therapy Progress Note ---
Therapy Progress Note Patient refused physical therapy a second time due to nausea. Will check back tomorrow. MOSES SPAULDING PT Feb 14, 2022 11:19
--- NOTE | 2022-02-14 11:20 | Tele-ICU Progress Note ---
Subjective Date Seen by a Provider: Feb 14, 2022 Time Seen by a Provider: 11:15 Subjective/Events-last exam (Tele-ICU Physician , Progress Note ) Service provided via interactive audio and video telecommunications E-CARE system to a patient admitted to ICU bed in [facility]. Available chart/ vitals / labs / Images reviewed Video assessment done using teleICU camera, rest of exam as per RN Discussed with RN Events overnight : Afebrile hemodynamically stable Respiratory 4 l I/O =pos Drips: ns Pressors- no A/P Symptomatic bradycardia - as per cards - meds adjusted , gust[place] Tx-ed CAD - stable , as per cards Acute SVT - meds being adjusted by cards Hyperkalemia - ? related to LOSARTAN - as per cards and PCP PHIL CKD - resolved to baseline Hypoxia and wheezing today - stop IVF Nausea - reportedluy chronic - ? resume promethazine IF OK BY CARDS h/o CVA with residual deficit -cpm DM II - as per pcp Lines : periph , (Central Line Necessity Reviewed) Leiva: void OG: Nutrition: po Analgesia: Anxiety/ delirium VTE Prophylaxis: hep Stress Ulcer Prophylaxis: Plans in collaboration with bedside consultants and IM MDs. Discussed with RN to reach out if any questions or concerns A total of 25 minutes of critical care time was devoted to this patient today, required to treat and/or prevent further deterioration of critical care condition ( as above ) . I am remotely monitoring this patient from another state. I am unable to do the bedside exam, and history/physical and pertinent information is taken from other notes in the computer and bedside staff. Sepsis Event Evaluation Height, Weight, BMI Height: 5'6.00" Weight: 220lbs. 10.0oz. [id number]; 35.01 BMI Method:Estimated Exam Exam Patient acknowledged, consented, and participated in this virtual visit which was conducted using real time audio/video Vital Signs Date Time Temp Pulse Resp B/P (MAP) Pulse Ox O2 Delivery O2 Flow Rate FiO2 02/14/22 11:00 106 30 176/125 (142) 90 Room Air 02/14/22 10:00 100 25 171/106 (127) 94 Room Air 02/14/22 09:00 101 24 166/94 (118) 93 Room Air 02/14/22 08:40 Room Air 02/14/22 08:00 97 29 156/82 (106) 91 Nasal Cannula 2.00 02/14/22 07:55 37.3 02/14/22 07:48 96 Room Air 02/14/22 07:00 101 20 151/85 (107) 95 Nasal Cannula 2.00 02/14/22 07:00 102 02/14/22 06:00 96 28 152/80 (104) 94 Nasal Cannula 2.00 02/14/22 05:00 98 28 146/81 (102) 94 Nasal Cannula 2.00 02/14/22 04:30 103 17 164/81 (108) 93 Nasal Cannula 2.00 02/14/22 04:10 36.8 Nasal Cannula 2.00 02/14/22 04:00 95 Nasal Cannula 2.00 02/14/22 03:00 101 24 151/89 (109) 93 Nasal Cannula 2.00 02/14/22 02:09 102 36 147/81 (103) 93 Nasal Cannula 2.00 02/14/22 01:00 100 23 175/98 (123) 94 Nasal Cannula 2.00 02/14/22 01:00 100 02/14/22 00:44 95 Room Air 02/14/22 00:03 100 22 173/96 (121) 92 Nasal Cannula 2.00 02/13/22 23:54 37.0 02/13/22 23:05 93 Nasal Cannula 2.00 02/13/22 23:00 98 34 150/76 (100) 93 Nasal Cannula 2.00 02/13/22 22:53 Nasal Cannula 2.00 02/13/22 22:00 98 25 156/89 (111) 92 Room Air 02/13/22 21:00 98 28 154/90 (111) 87 Room Air 02/13/22 20:00 97 11 146/87 (106) 92 Room Air 02/13/22 19:45 94 Room Air 02/13/22 19:39 37.1 02/13/22 19:00 95 02/13/22 19:00 97 16 116/89 (98) 94 Room Air 02/13/22 18:00 99 18 138/100 (113) 94 Room Air 02/13/22 17:00 97 25 160/82 (108) 94 Room Air 02/13/22 16:12 95 Room Air 02/13/22 16:00 37.0 02/13/22 16:00 97 26 172/103 (126) 93 Room Air 02/13/22 15:45 96 26 167/102 (123) 93 Room Air 02/13/22 13:00 98 24 157/81 (106) 94 Room Air 02/13/22 12:39 98 02/13/22 12:00 101 22 163/90 (114) 95 Room Air 02/13/22 11:52 36.7 02/13/22 11:51 94 Room Air I & O 02/14/22 07:00 Intake Total 4150 ml Output Total 2400 ml Balance 1750 ml Height & Weight Height: 5'6.00" Weight: 220lbs. 10.0oz. [id number]; 35.01 BMI Method:Estimated General Appearance: No Apparent Distress HEENT: Pharynx Normal (but dry) Neck: Supple Respiratory: Lungs Clear Cardiovascular: Regular Rate, Rhythm (this am (02/13) in the Cardiac unit) Capillary Refill: Less Than 3 Seconds Gastrointestinal: normal bowel sounds, non tender, soft Extremity: Normal Capillary Refill Neurologic/Psychiatric: Alert, Oriented x3, No Motor/Sensory Deficits, Normal Mood/Affect Skin: Normal Color, Warm/Dry Results Lab Laboratory Tests 02/12/22 13:05 02/12/22 17:05 02/12/22 21:55 02/13/22 04:50 02/14/22 04:38 Assessment/Plan Assessment/Plan 1 TRAY HOLDER MD Feb 14, 2022 11:20
[2022-02-14] MEDS ORDERED: PROMETHAZINE 25 MG (PHENERGAN) TAB PO PRN (11:45)
--- NOTE | 2022-02-14 12:42 | Diagnostic Imaging Report ---
CHEST 1 VIEW, AP/PA ONLY Indication: Pleural effusion Comparison: 02/12/2022 Findings: Right-sided pleural effusion has improved. No pneumothorax. Hazy central opacities are similar. Stable enlargement of cardiac silhouette. Impression: 1. Resolution of right pleural effusion. 2. Persistent hazy opacities within the central aspect lungs that may be due to edema. Atelectasis or summation shadow patient's breast tissue could also account for this appearance. Dictated by: Dictated on workstation # [id number]
[2022-02-14] MEDS ORDERED: amLODIPine 10 MG (NORVASC) TAB PO ONE (21:45)
[2022-02-14] MEDS ORDERED: amLODIPine 10 MG (NORVASC) TAB ONE (21:45)
--- NOTE | 2022-02-14 21:46 | Cardiology Progress Note ---
Progress Note-Cardiology Events since last exam Date Seen by Provider: Feb 14, 2022 Time Seen by Provider: 21:43 Events since last exam I am following her due to bradycardia. On 02/13 she was transferred to the ICU due to hypoxia with mental status changes. Today she is much more clear. She denies chest discomfort, dyspnea at rest, palpitations, or syncope. Her chronic, mild ankle edema is unchanged. Certain portions of this document may have been dictated utilizing voice recognition technology. Inherent to this technology, typographical and grammatical errors may exist. As much as I am diligent to identify and correct these mistakes, some errors may remain in the document. Vitals Last set of Vitals Signs Vital Signs 02/14/22 20:00 Temp 36.5 Labs Labs Laboratory Tests 02/14/22 04:38 Exam Vital Signs Vital Signs Date Time Temp Pulse Resp B/P (MAP) Pulse Ox O2 Delivery O2 Flow Rate FiO2 02/14/22 20:00 36.5 02/14/22 19:40 89 18 163/100 (121) 97 Nasal Cannula 2.00 Physical Exam General: Alert. No acute distress. Eye: No xanthelasma. HENT: Normocephalic. Neck: Jugular venous pressure does not appear elevated. Respiratory: Lungs are clear to auscultation but decreased at the bases bilaterally. Respirations are non-labored. Breath sounds are equal. Symmetrical chest wall expansion. Cardiovascular: Normal rate. Regular rhythm. 2/6 holosystolic murmur. No gallop. Trace bilateral pretibial edema. Gastrointestinal: Soft. Normal bowel sounds. Skin: Warm. Dry. Neurologic: Alert and oriented to person, place, time. Cranial nerves 3-11 grossly intact. Psychiatric: Cooperative. Appropriate mood & affect. Labs Laboratory Tests Test 02/14/22 04:38 02/14/22 06:02 02/14/22 10:29 02/14/22 15:31 Range/Units White Blood Count 8.7 4.3-11.0 10^3/uL Red Blood Count 3.57 L 3.80-5.11 10^6/uL Hemoglobin 11.8 11.5-16.0 g/dL Hematocrit 36 35-52 % Mean Corpuscular Volume 100 H 80-99 fL Mean Corpuscular Hemoglobin 33 25-34 pg Mean Corpuscular Hemoglobin Concent 33 32-36 g/dL Red Cell Distribution Width 13.4 10.0-14.5 % Platelet Count 146 130-400 10^3/uL Mean Platelet Volume 11.3 9.0-12.2 fL Immature Granulocyte % (Auto) 1 % Neutrophils (%) (Auto) 63 42-75 % Lymphocytes (%) (Auto) 28 12-44 % Monocytes (%) (Auto) 7 0-12 % Eosinophils (%) (Auto) 1 0-10 % Basophils (%) (Auto) 1 0-10 % Neutrophils # (Auto) 5.4 1.8-7.8 10^3/uL Lymphocytes # (Auto) 2.5 1.0-4.0 10^3/uL Monocytes # (Auto) 0.6 0.0-1.0 10^3/uL Eosinophils # (Auto) 0.1 0.0-0.3 10^3/uL Basophils # (Auto) 0.0 0.0-0.1 10^3/uL Immature Granulocyte # (Auto) 0.1 0.0-0.1 10^3/uL Sodium Level 140 135-145 MMOL/L Potassium Level 4.4 3.6-5.0 MMOL/L Chloride Level 111 H 98-107 MMOL/L Carbon Dioxide Level 18 L 21-32 MMOL/L Anion Gap 11 5-14 MMOL/L Blood Urea Nitrogen 20 H 7-18 MG/DL Creatinine 1.40 H 0.60-1.30 MG/DL Estimat Glomerular Filtration Rate 41 BUN/Creatinine Ratio 14 Glucose Level 149 H 70-105 MG/DL Calcium Level 9.5 8.5-10.1 MG/DL Corrected Calcium 9.7 8.5-10.1 MG/DL Phosphorus Level 2.3 2.3-4.7 MG/DL Magnesium Level 1.4 L 1.6-2.4 MG/DL Total Bilirubin 0.6 0.1-1.0 MG/DL Aspartate Amino Transf (AST/SGOT) 26 5-34 U/L Alanine Aminotransferase (ALT/SGPT) 22 0-55 U/L Alkaline Phosphatase 58 40-136 U/L Total Protein 6.7 6.4-8.2 GM/DL Albumin 3.7 3.2-4.5 GM/DL Glucometer 148 H 208 H 205 H 70-110 MG/DL Test 02/14/22 19:45 Range/Units Glucometer 178 H 70-110 MG/DL Diagnosis/Problems Diagnosis/Problems (1) Symptomatic bradycardia Assessment & Plan: This may be due to the atenolol she was taking. Additionally, she also had hyperkalemia at the time of presentation which could have been contributing to the bradycardia. Since stopping the beta-abel and correcting the hyperkalemia, her bradycardia has resolved. I would suggest avoiding beta-abel and any other AV marcela blocking agents such as diltiazem in the future. (2) Coronary artery disease involving [place] coronary artery with angina pectoris Assessment & Plan: She reportedly has inoperable small vessel disease. I recommend she continue on aspirin and statin medication. As above, beta-abel was stopped bradycardia. She should continue on ranolazine. (3) Supraventricular tachycardia Status: Acute Assessment & Plan: This was the apparent reason she had been placed on beta- abel years ago. We will continue to monitor her on telemetry while she is here in the hospital. (4) Primary hypertension Assessment & Plan: All of her antihypertensive medications appear to have been stopped at the time of admission. She has been receiving hydralazine as needed. I will restart her amlodipine. In light of her stage III chronic kidney disea se, I will hold off on restarting losartan at this time. (5) Mixed hyperlipidemia Assessment & Plan: Continue atorvastatin. (6) Hyperkalemia Assessment & Plan: Etiology unclear. This could be related to the acute kidney injury. The hyperkalemia may have also contributed to the bradycardia. This has resolved. (7) Acute kidney injury superimposed on chronic kidney disease Assessment & Plan: This has improved but she appears to have underlying stage III chronic kidney disease. (8) History of cerebrovascular accident with residual deficit Assessment & Plan: Continue aspirin and statin medication. She has also been on prolonged therapy with clopidogrel. Unclear whether this was given for her coronary artery disease or the previous stroke. (9) Type 2 diabetes mellitus with complication Assessment & Plan: This is being managed by the primary provider. (10) Obesity Assessment & Plan: She needs to work on weight loss. She has been counseled in this regard. CANDY MUNSON JR, MD Feb 14, 2022 21:46
[2022-02-15 06:13] LABS: ALBUMIN 3.5 GM/DL (3.2-4.5); BILIRUBIN,TOTAL 0.8 MG/DL (0.1-1.0); CALCIUM 9.6 MG/DL (8.5-10.1); CREATININE SERUM 1.14 MG/DL (0.60-1.30); MAGNESIUM 1.7 MG/DL (1.6-2.4); PHOSPHORUS 2.4 MG/DL (2.3-4.7); TOTAL PROTEIN 6.5 GM/DL (6.4-8.2)
[2022-02-15] MEDS: KCL 20 MEQ TAB (K-DUR) PO SCH (06:20)
[2022-02-15] MEDS: inSUlin ASPART (NovoLOG) 1 UNIT/0.01 ML (CHARGE PER UNIT) SC SCH ×2 (06:20→11:15)
[2022-02-15] MEDS: MAGNESIUM 1 GM/100 ML IVPB 100 ML IV SCH ×3 (06:21→07:44)
[2022-02-15 07:35] VITALS: BP 144/86
[2022-02-15] MEDS: SENNOSIDES 8.6 MG (SENOKOT) TAB PO SCH (08:53)
[2022-02-15] MEDS: DOCUSATE SODIUM 100 MG (COLACE) CAP PO SCH (08:53)
[2022-02-15] MEDS ORDERED: amLODIPine 10 MG (NORVASC) TAB PO SCH (09:00)
--- NOTE | 2022-02-15 09:17 | Physical Therapy Daily Note ---
PT Daily Note-Current Subjective Patient in bed pre tx, agrees to PT but doesn't want to get out of bed or sit to the side of the bed, agrees to LE exercise Pain Section J - Health Conditions 1. Rarely or not at all 2. Occasionally 3. Frequently 4. Almost constantly 8. Unable to answer Pain Effect on Sleep: 1 Pain Interference with Therapy: 1 Pain Interference w/Day-to-Day: 1 Appearance Patient in bed post tx with nurse call, phone, tray, all needs met. Mental Status Patient Orientation: Person, Place, Situation Attachments: Leiva Catheter, IV Transfers SCALE: Activities may be completed with or without assistive devices. 0-Eijuwvufwu-bbbetlr completes the activity by him/herself with no assistance from a helper. 5-Set-up or Clean-up Assistance-helper sets up or cleans up; patient completes activity. [place] assists only prior to or following the activity. 4-Supervision or Touching Assistance-helper provides verbal cues and/or touching/steadying and/or contact guard assistance as patient completes activity. Assistance may be provided throughout the activity or intermittently. 3-Partial/Moderate Assistance-helper does LESS THAN HALF the effort. [place] lifts, holds or supports trunk or limbs, but provides less than half the effort. 2-Substantial/Maximal Assistance-helper does MORE THAN HALF the effort. [place] lifts or holds trunk or limbs and provides more than half the effort. 5-Lquzdcwqc-uutiao does ALL the effort. Patient does none of the effort to complete the activity. Or, the assistance of 2 or more helpers is required for the patient to complete the activity. If activity was not attempted, code reason: 7-Patient Refused. 9-Not Applicable-not attempted and the patient did not perform the activity before the current illness, exacerbation or injury. 10-Not Attempted due to Environmental Limitations-(lack of equipment, weather restraints, etc.). 88-Not Attempted due to Medical Conditions or Safety Concerns. 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 PT [facility] Goals Time Frame: Feb 20, 2022 Roll Left & Right (QC): 6 Sit to Lying (QC): 6 Lying-Sitting on Side/Bed(QC): 6 Sit to Stand (QC): 4 Chair/Cju-tk-Xejhe Xfer(QC): 4 PT Plan Problem List Problem List: Activity Tolerance, Functional Strength, Safety, Balance, Gait, Transfer, Bed Mobility, ROM Treatment/Plan Treatment Plan: Continue Plan of Care Treatment Plan: Bed Mobility, Education, Functional Activity Ruthie, Functional Strength, Gait, Safety, Therapeutic Exercise, Transfers Treatment Duration: Feb 20, 2022 Frequency: 6 times per week Estimated Hrs Per Day: .25 hour per day Patient and/or Family Agrees t: Yes Safety Risks/Education Patient Education: Correct Positioning, Safety Issues Teaching Recipient: Patient Teaching Methods: Demonstration, Discussion Response to Teaching: Reinforcement Needed Time Time In: 828 Time Out: 838 DATE: Feb 15, 2022 Total Billed Treatment Time: 10 Total Billed Treatment 1 visit EX MOSES HINOJOSA PT Feb 15, 2022 09:17
--- NOTE | 2022-02-15 11:56 | Occupational Ther Daily Note ---
OT Current Status-Daily Note Subjective Pt alert, lying in bed. Pt states that she is discharging today. Agrees to therapy though no OOB. Mental Status/Objective Patient Orientation: Person, Place, Time, Situation Attachments: IV ADL-Treatment Therapy Code Descriptions/Definitions Functional [place] Measure: 0=Not Assessed/NA 4=Minimal Assistance 1=Total Assistance 5=Supervision or Setup 2=Maximal Assistance 6=Modified [place] 3=Moderate Assistance 7=Complete IndependenceSCALE: Activities may be completed with or without assistive devices. 2-Tvpjxkqmqd-vheikpb completes the activity by him/herself with no assistance from a helper. 5-Set-up or Clean-up Assistance-helper sets up or cleans up; patient completes activity. [place] assists only prior to or following the activity. 4-Supervision or Touching Assistance-helper provides verbal cues and/or touching/steadying and/or contact guard assistance as patient completes activ ity. Assistance may be provided throughout the activity or intermittently. 3-Partial/Moderate Assistance-helper does LESS THAN HALF the effort. [place] lifts, holds or supports trunk or limbs, but provides less than half the effort. 2-Substantial/Maximal Assistance-helper does MORE THAN HALF the effort. [place] lifts or holds trunk or limbs and provides more than half the effort. 5-Mrruousos-jwevfg does ALL the effort. Patient does none of the effort to complete the activity. Or, the assistance of 2 or more helpers is required for the patient to complete the activity. If activity was not attempted, code reason: 7-Patient Refused. 9-Not Applicable-not attempted and the patient did not perform the activity before the current illness, exacerbation or injury. 10-Not Attempted due to Environmental Limitations-(lack of equipment, weather restraints, etc.). 88-Not Attempted due to Medical Conditions or Safety Concerns. Other Treatment Pt completed 3 B UE against gravity, 10 reps 1 set/5 reps 1 set, with skilled instruction for correct technique and modifications when needed. Pt stated that she could only do 10 reps not the 20 PT had her do. Pt declined further exercises or tasks. After therapy, pt lying in bed with call light/phone in reach. All needs met. OT Pattern Chart Writer Goals Pattern Chart Writer Goals Time Frame: Feb 24, 2022 Toileting Hygiene (QC): 4 Shower/Bathe Self (QC): 4 Upper Body Dressing (QC): 4 Lower Body Dressing (QC): 4 On/Off Footwear (QC): 4 Additional Goals: 1-Demonstrate ADL Tasks, 2-Verbalize Understanding, 3- ImproveStrength/Ruthie 1=Demonstrate adherence to instructed precautions during ADL tasks. 2=Patient will verbalize/demonstrate understanding of assistive devices/modifications for ADL. 3=Patient will improve strength/tolerance for activity to enable patient to perform ADL's. OT Education/Plan Problem List/Assessment Assessment: Decreased Activ Tolerance, Decreased UE Strength, Impaired Self- Care Skills Discharge Recommendations Plan/Recommendations: Continue POC Treatment Plan/Plan of Care Patient would benefit from OT for education, treatment and training to promote independence in ADL's, mobility, safety and/or upper extremity function for ADL's. Plan of Care: ADL Retraining, Functional Mobility, Group Exercise/Act as Ind, UE Funct Exercise/Act, W/C Management Training Treatment Duration: Feb 24, 2022 Frequency: 3 times per week (3-5x/week ) Estimated Hrs Per Day: .25 hour per day Rehab Potential: Guarded Time Start Time: 10:42 Stop Time: 11:05 DATE: Feb 15, 2022 Total Time Billed (hr/min): 23 Billed Treatment Time 1 visit-FA 1 (10 min) EX 1 (13 min) SARABJIT SANDOVAL Feb 15, 2022 11:56
[2022-02-15] MEDS ORDERED: DOCU100C37 PO (12:01)
--- NOTE | 2022-02-15 13:46 | Tele-ICU Progress Note ---
Subjective Date Seen by a Provider: Feb 15, 2022 Time Seen by a Provider: 11:20 Subjective/Events-last exam (Tele-ICU Physician , Progress Note ) Service provided via interactive audio and video telecommunications E-CARE system to a patient admitted to ICU bed in [facility]. Available chart/ vitals / labs / Images reviewed Video assessment done using teleICU camera, rest of exam as per RN Discussed with RN Events overnight : Afebrile hemodynamically stable Respiratory 2l I/O = EVEN Drips: ns Pressors- no A/P Symptomatic bradycardia - as per cards - meds adjusted , lytes Tx-ed CAD - stable , as per cards Acute SVT - meds being adjusted by cards Hyperkalemia - ? related to LOSARTAN - as per cards and PCP PHIL CKD - resolved to baseline Hypoxia and wheezing today - stop IVF Nausea - reportedluy chronic - ? resume promethazine IF OK BY CARDS h/o CVA with residual deficit -cpm DM II - as per pcp Lines : periph , (Central Line Necessity Reviewed) Leiva: void OG: Nutrition: po Analgesia: Anxiety/ delirium VTE Prophylaxis: hep Stress Ulcer Prophylaxis: na Plans in collaboration with bedside consultants and IM MDs. Discussed with RN to reach out if any questions or concerns A total of 20 minutes of critical care time was devoted to this patient today, required to treat and/or prevent further deterioration of critical care condition ( as above ) . I am remotely monitoring this patient from another state. I am unable to do the bedside exam, and history/physical and pertinent information is taken from other notes in the computer and bedside staff. Sepsis Event Evaluation Height, Weight, BMI Height: 5'6.00" Weight: 220lbs. 10.0oz. [id number]; 34.39 BMI Method:Estimated Exam Exam Patient acknowledged, consented, and participated in this virtual visit which was conducted using real time audio/video Vital Signs Date Time Temp Pulse Resp B/P (MAP) Pulse Ox O2 Delivery O2 Flow Rate FiO2 02/15/22 13:00 91 02/15/22 12:00 37.2 02/15/22 12:00 96 13 125/91 (102) 95 Room Air 02/15/22 11:00 93 12 153/82 (105) 94 Room Air 02/15/22 10:43 Room Air 02/15/22 10:00 94 12 169/96 (120) 96 Nasal Cannula 2.00 02/15/22 09:00 93 10 141/88 (105) 95 Nasal Cannula 2.00 02/15/22 08:15 96 Room Air 02/15/22 08:00 36.6 02/15/22 08:00 99 17 157/105 (122) 93 Nasal Cannula 2.00 02/15/22 07:35 Nasal Cannula 2.00 98 02/15/22 07:35 36.9 95 98 2 02/15/22 07:00 92 02/15/22 07:00 92 17 144/86 (105) 98 Nasal Cannula 2.00 02/15/22 06:00 92 12 148/93 (111) 98 Nasal Cannula 2.00 02/15/22 05:00 95 23 102/69 (80) 96 Nasal Cannula 2.00 02/15/22 04:00 36.9 92 19 166/86 (112) 96 Nasal Cannula 2.00 02/15/22 03:55 95 Nasal Cannula 2.00 02/15/22 03:00 90 25 157/84 (108) 95 Nasal Cannula 2.00 02/15/22 02:00 90 24 163/82 (109) 97 Nasal Cannula 2.00 02/15/22 01:00 93 26 172/87 (115) 96 Nasal Cannula 2.00 02/15/22 01:00 93 02/15/22 00:00 89 23 168/92 (117) 96 Nasal Cannula 2.00 02/14/22 23:05 97 Nasal Cannula 2.00 02/14/22 23:04 37.0 Nasal Cannula 2.00 02/14/22 23:00 89 25 162/100 (120) 95 Nasal Cannula 2.00 02/14/22 22:00 90 16 160/99 (119) 97 Nasal Cannula 2.00 02/14/22 21:00 89 29 171/110 (130) 96 Nasal Cannula 2.00 02/14/22 20:00 89 12 170/99 (122) 97 Nasal Cannula 2.00 02/14/22 20:00 36.5 02/14/22 19:40 89 18 163/100 (121) 97 Nasal Cannula 2.00 02/14/22 19:40 98 Nasal Cannula 2.00 02/14/22 19:04 Room Air 02/14/22 19:00 91 12/13/22 18:00 92 11 136/102 (113) 97 Room Air 02/14/22 17:00 96 20 163/107 (125) 95 Room Air 02/14/22 16:20 99 Nasal Cannula 2.00 02/14/22 16:00 95 22 156/98 (117) 96 Room Air 02/14/22 16:00 36.9 02/14/22 15:00 89 13 143/92 (109) 96 Room Air 02/14/22 14:00 94 15 154/95 (114) 91 Room Air I & O 02/15/22 07:00 Intake Total 2050 ml Output Total 2500 ml Balance -450 ml Height & Weight Height: 5'6.00" Weight: 220lbs. 10.0oz. 100.161415qg; 34.39 BMI Method:Estimated General Appearance: No Apparent Distress HEENT: Pharynx Normal (but dry) Neck: Supple Respiratory: Lungs Clear Cardiovascular: Regular Rate, Rhythm (this am (02/13) in the Cardiac unit) Capillary Refill: Less Than 3 Seconds Gastrointestinal: normal bowel sounds, non tender, soft Extremity: Normal Capillary Refill Neurologic/Psychiatric: Alert, Oriented x3, No Motor/Sensory Deficits, Normal Mood/Affect Skin: Normal Color, Warm/Dry Results Lab Laboratory Tests 02/14/22 04:38 02/15/22 04:35 Assessment/Plan Assessment/Plan 1 TRAY HOLDER MD Feb 15, 2022 13:46
[2022-02-15 15:03] LABS: BASOPHILS % (AUTO) 1 % (0-10); EOSINOPHILS # (AUTO) 0.1 10^3/uL (0.0-0.3); EOSINOPHILS % (AUTO) 2 % (0-10); HEMATOCRIT 37 % (35-52); HEMOGLOBIN 11.9 g/dL (11.5-16.0); LYMPHOCYTES # (AUTO) 1.9 X 10^3 (1.0-4.0); LYMPHOCYTES % (AUTO) 33 % (12-44); MEAN CORPUSCULAR HEMOGLOBIN 34 pg (25-34); MEAN CORPUSCULAR HGB CONC 33 g/dL (32-36); MEAN CORPUSCULAR VOLUME 103 fL (80-99); MEAN PLATELET VOLUME 11.6 fL (9.0-12.2); MONOCYTES # (AUTO) 0.5 X 10^3 (0.0-1.0); MONOCYTES % (AUTO) 9 % (0-12); NEUTROPHILS # (AUTO) 3.1 X 10^3 (1.8-7.8); NEUTROPHILS % (AUTO) 55 % (42-75); PLATELET COUNT 136 10^3/uL (130-400); WHITE BLOOD COUNT 5.7 10^3/uL (4.3-11.0)
== END 2022-02-15 15:18 | DRG 309 ==
LOC: EDUNIT# 13:00 → ER 13:02 → ICU 14:10 → OBSVTOIN 02-13 08:38
PROVIDERS: ADMIT Internal Medicine; ATTEND Family Medicine
DX: R00.1 Bradycardia, unspecified (principal); I69.354 Hemiplegia and hemiparesis following cerebral infarction affecting left non-dominant side; N17.9 Acute kidney failure, unspecified; I47.1 Supraventricular tachycardia; R09.02 Hypoxemia; E78.2 Mixed hyperlipidemia; I42.9 Cardiomyopathy, unspecified; I25.119 Atherosclerotic heart disease of native coronary artery with unspecified angina pectoris; E11.40 Type 2 diabetes mellitus with diabetic neuropathy, unspecified; E11.43 Type 2 diabetes mellitus with diabetic autonomic (poly)neuropathy; K31.84 Gastroparesis; E66.9 Obesity, unspecified; I12.9 Hypertensive chronic kidney disease with stage 1 through stage 4 chronic kidney disease, or unspecified chronic kidney disease; E11.22 Type 2 diabetes mellitus with diabetic chronic kidney disease; N18.30 Chronic kidney disease, stage 3 unspecified; G47.30 Sleep apnea, unspecified; K21.9 Gastro-esophageal reflux disease without esophagitis; E87.5 Hyperkalemia; K59.09 Other constipation; M81.0 Age-related osteoporosis without current pathological fracture; F41.9 Anxiety disorder, unspecified; F32.A Depression, unspecified; H91.90 Unspecified hearing loss, unspecified ear; I25.2 Old myocardial infarction; Z68.34 Body mass index [BMI] 34.0-34.9, adult; Z79.4 Long term (current) use of insulin; Z79.82 Long term (current) use of aspirin; Z83.3 Family history of diabetes mellitus; Z82.49 Family history of ischemic heart disease and other diseases of the circulatory system; T44.7X5A Adverse effect of beta-adrenoreceptor antagonists, initial encounter
CPT/HCPCS: 36415; 71045; 80048; 80053; 80061; 82550; 82947; 83735; 83874; 84100; 84443; 84484; 85025; 85610; 85730; 93005; 93041; 93306; 94640; G0378

== ENCOUNTER 2022-02-21 10:47 | Emergency (ER) | payer MEDICARE, OTHER ==
[~2022-02-21] VITALS: Ht 170 cm; Wt 98.0 kg
[~2022-02-21 10:47] MED LIST changes: +ALBU0.63 IH; +ALPR0.5T7 PO; +AMLO-251 PO; +ERGO1250 PO; +GABA-486 PO; +LOPE-175 PO
[2022-02-21] MEDS ORDERED: NS IV 500 ML 500 ML IV ONE (11:30)
[2022-02-21 11:34] LABS: BASOPHILS % (AUTO) 0 % (0-10); EOSINOPHILS # (AUTO) 0.1 10^3/uL (0.0-0.3); EOSINOPHILS % (AUTO) 2 % (0-10); HEMATOCRIT 35 % (35-52); HEMOGLOBIN 11.8 g/dL (11.5-16.0); LYMPHOCYTES % (AUTO) 26 % (12-44); MEAN CORPUSCULAR HEMOGLOBIN 33 pg (25-34); MEAN CORPUSCULAR HGB CONC 33 g/dL (32-36); MEAN CORPUSCULAR VOLUME 98 fL (80-99); MEAN PLATELET VOLUME 11.3 fL (9.0-12.2); MONOCYTES # (AUTO) 0.4 10^3/uL (0.0-1.0); MONOCYTES % (AUTO) 5 % (0-12); NEUTROPHILS % (AUTO) 66 % (42-75); PLATELET COUNT 144 10^3/uL (130-400); WHITE BLOOD COUNT 7.6 10^3/uL (4.3-11.0)
[2022-02-21 11:35] LABS: ALBUMIN 3.8 GM/DL (3.2-4.5); POTASSIUM 4.7 MMOL/L (3.6-5.0)
--- NOTE | 2022-02-21 11:36 | ED General ---
General Chief Complaint: General Problems/Pain Stated Complaint: INCREASED GENERALIZED WEAKNESS Nursing Triage Note: PT TO [facility] WITH CC OF GENERAL WEAKNESS, STATES URINARY FREQUENCY, MOUTH IS DRY History of Present Illness Date Seen by Provider: Feb 21, 2022 Time Seen by Provider: 11:01 Initial Comments 66 year old female from [facility] arrives via EMS for general complaints of weakness and urinary frequency. She reports sleeping until 9:15, she has not taken any medications or eaten this a.m. She is diabetic and history of CVA, takes plavix. She is not ambulatory due to weakness, uses wheelchair for mobility. She reports a fall 3-4 days ago, witnessed and assisted by staff. No injuries at that time, LOC or head injuries. Dr. Rodney was notified but no orders. She has urinary frequency, denies recent UTI. Accucheck 190. Timing/Duration: 24 Hours Severity: Mild Modifying Factors: improves with Rest Associated Systoms: No Chest Pain, No Cough, No Fever/Chills, No Headaches, No Loss of Appetite; Malaise; No Nausea/Vomiting, No Shortness of Air, No Syncope; Weakness Allergies and Home Medications Allergies Coded Allergies: codeine (Verified Allergy, Severe, SOA, pt has rec Lortab, Percocet, morphine in the past, 11/17/20) bupropion (Verified Allergy, Mild, 11/16/20) COUGH isosorbide (Verified Allergy, Mild, 11/16/20) COUGH levofloxacin (Verified Allergy, Mild, 11/16/20) COUGH ramipril (Verified Allergy, Mild, 11/16/20) COUGH celecoxib (Unverified Allergy, Unknown, 03/08/15) cinacalcet (Verified Allergy, Unknown, 03/07/20) clarithromycin (Verified Allergy, Unknown, 03/07/20) hydrocodone (Verified Adverse Reaction, Unknown, 11/16/20) HYPOTENSION Patient Home Medication List Home Medication List Reviewed: Yes Acetaminophen (Acetaminophen) 500 Mg Tablet, 1,000 MG PO Q6H PRN for PAIN-MILD (1-4) OR TEMPATURE, (Reported) Entered as Reported by: KIKO CABELLO on 11/16/20 0900 Allopurinol (Allopurinol) 100 Mg Tablet, 100 MG PO 1200, (Reported) Entered as Reported by: АНДРЕЙ MAK on 09/10/20 1148 Alprazolam (Alprazolam) 0.5 Mg Tablet, 0.5 MG PO HS, (Reported) Entered as Reported by: АНДРЕЙ MAK on 02/13/22 1437 Amlodipine Besylate (Amlodipine Besylate) 10 Mg Tablet, 10 MG PO 1200, (Reported) Entered as Reported by: АНДРЕЙ MAK on 02/13/22 1437 Aspirin (Aspirin EC) 81 Mg Tablet.dr, 81 MG PO 1200, (Reported) Entered as Reported by: АНДРЕЙ MAK on 09/14/20 1539 Atorvastatin Calcium (Atorvastatin Calcium) 80 Mg Tablet, 80 MG PO HS, (Rep orted) Entered as Reported by: АНДРЕЙ MAK on 09/10/20 1148 Cephalexin (Cephalexin) 500 Mg Tablet, 500 MG PO TID Prescribed by: MARLEN KAMINSKI on 02/21/22 1221 Clopidogrel Bisulfate (Plavix) 75 Mg Tablet, 75 MG PO 1200, (Reported) Entered as Reported by: АНДРЕЙ MAK on 09/14/20 1539 Docusate Sodium (Docusate Sodium) 100 Mg Capsule, 100 MG PO BID Prescribed by: PATRICE RODNEY on 02/15/22 1201 Ergocalciferol (Vitamin D2) (Vitamin D2) 1,250 Mcg (00293 Unit) Capsule, 1,250 MCG PO WEEK, (Reported) Entered as Reported by: АНДРЕЙ MAK on 02/13/22 1437 Gabapentin (Gabapentin) 100 Mg Capsule, 100 MG PO HS, (Reported) Entered as Reported by: АНДРЕЙ MAK on 02/13/22 1437 Insulin NPH Human Isophane (Novolin N) 100 Unit/Ml Vial, 40 UNIT SQ HS, (Reported) Entered as Reported by: KIKO CABELLO on 11/16/20 0851 Insulin NPH Human Isophane (Novolin N) 100 Unit/Ml Vial, 35 UNIT SQ DAILY, (Reported) Entered as Reported by: KIKO CABELLO on 11/16/20 0851 Insulin Regular, Human (Humulin R) 100 Unit/Ml Soln, UNITS SQ TIDAC, (Reported) Entered as Reported by: KIKO CABELLO on 11/16/20 0851 Meclizine HCl (Meclizine HCl) 25 Mg Tablet, 25 MG PO BID PRN PRN for NAUSEA/VOMITING, (Reported) Entered as Reported by: KIKO CABELLO on 11/16/20 0900 Melatonin (Melatonin) 5 Mg Tablet, 5 MG PO HS, (Reported) Entered as Reported by: АНДРЕЙ MAK on 11/17/20 1307 Oxybutynin Chloride (Oxybutynin Chloride ER) 5 Mg Tab.er.24, 5 MG PO 1200, (Reported) Entered as Reported by: АНДРЕЙ MAK on 03/08/20 1331 Pantoprazole Sodium (Pantoprazole Sodium) 40 Mg Tablet.dr, 40 MG PO 1200, (Reported) Entered as Reported by: KIKO CABELLO on 11/16/20 0851 Ranolazine (Ranexa) 1,000 Mg Tab.er.12h, 1,000 MG PO BID, (Reported) Entered as Reported by: CARMELO PETERS on 08/26/18 1218 Sertraline HCl (Sertraline HCl) 25 Mg Tablet, 25 MG PO HS, (Reported) Entered as Reported by: АНДРЕЙ MAK on 03/08/20 1331 Discontinued Medications Albuterol Sulfate (Albuterol Sulfate) 0.63 Mg/3 Ml Vial.neb, 0.63 MG IH Q4H PRN for SHORTNESS OF BREATH, (Reported) Entered as Reported by: АНДРЕЙ MAK on 02/13/22 1437 Atenolol (Atenolol) 25 Mg Tablet, 25 MG PO 1200, (Reported) Entered as Reported by: АНДРЕЙ MAK on 09/10/20 1151 Loperamide HCl (Imodium A-D) 2 Mg Capsule, 2-4 MG PO UD PRN for DIARRHEA, (Reported) Entered as Reported by: АНДРЕЙ MAK on 02/13/22 1437 Losartan Potassium (Losartan Potassium) 100 Mg Tablet, 100 MG PO 1200, (Reported) Entered as Reported by: АНДРЕЙ MAK on 09/10/20 1148 Magnesium Citrate (Magnesium Citrate) 296 Ml Solution, 296 ML PO DAILY PRN for CONSTIPATION-9TH LINE, (Reported) Entered as Reported by: KIKO CABELLO on 11/16/20 0900 Metoclopramide HCl (Metoclopramide HCl) 10 Mg Tablet, 10 MG PO BID PRN for NAUSEA/VOMITING-3RD LINE, (Reported) Entered as Reported by: АНДРЕЙ MAK on 09/10/20 1151 Promethazine HCl (Promethazine HCl) 12.5 Mg Tablet, 12.5 MG PO Q6H PRN for NAUSEA/VOMITING-2ND LINE, (Reported) Entered as Reported by: АНДРЕЙ MAK on 02/13/22 1437 Sennosides/Docusate Sodium (Stool Softener-Laxative Tablet) 1 Each Tablet, 1 EACH PO BID, (Reported) Entered as Reported by: KIKO CABELLO on 11/16/20 0851 Review of Systems Review of Systems Constitutional: see HPI; No chills, No dizziness, No fever; weakness EENTM: see HPI, no symptoms reported Respiratory: no symptoms reported, see HPI; No short of breath Cardiovascular: no symptoms reported, see HPI; No chest pain Gastrointestinal: no symptoms reported, see HPI; No abdominal pain, No constipation, No loss of appetite, No nausea, No vomiting Genitourinary: see HPI, frequency Musculoskeletal: no symptoms reported, see HPI All Other Systems Reviewed Negative Unless Noted: Yes Past Uxtxtsf-Zlwgiy-Xwkpzw Hx Patient Social History Tobacco Use?: No Substance use?: No Alcohol Use?: No Immunizations Up To Date Tetanus Booster (TDap): Unknown First/Initial COVID19 Vaccinat: 2020 Second COVID19 Vaccination Phill: 2020 Third COVID19 Vaccination Date: 2020 Seasonal Allergies Seasonal Allergies: No Past Medical History Surgery/Hospitalization HX: PT HAS HX OF LEFT TOTAL HIP SURGERY, GALLBLADDER, TOTAL HYST, PMH; TYPE 2 DM, HTN Surgeries: Yes (HYSTERECTOMY 1997, LAP. PRIETO 5-6 YRS. AGO, T&A-49 YRS. 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 Sexually Transmitted Disease: No HIV/AIDS: No Genitourinary: Yes (CHRONIC KIDNEY DISEASE) Kidney Stones, Renal Failure Gastrointestinal: Yes (GASTROPARESIS) Gastroesophageal Reflux, Chronic Constipation Musculoskeletal: Yes (HISTORY OF FALLS/WEAKNESS) Osteoporosis, Arthritis, Back Injury Endocrine: Yes Diabetes, Insulin dep HEENT: Yes (CHRONIC BLURRINESS OF RT EYE) Chronic Ear Infection Hearing Impairment: Hard of Hearing Cancer: No Psychosocial: Yes Sleep Difficulties, Anxiety, Depression Integumentary: Yes Psoriasis Blood Disorders: No Adverse Reaction/Blood Tranf: No Family Medical History Reviewed Nursing Family Hx Cancer (lung and ovarian) 09 BROTHER, Onset:30's - 40 09 SISTER, Onset:60 years & older Congenital heart disease (mitral valve prolapse) 09 SISTER 09 SISTER Congestive heart failure 03 FATHER, Onset:60 years & older 03 MOTHER, Onset:50's - 60 09 SISTER, Onset:60 years & older Family history: Arthritis 03 MOTHER, Onset:60 years & older Family history: Diabetes mellitus 03 FATHER, Onset:60 years & older 09 SISTER, Onset:50's - 60 Family history: Gastrointestinal disease 03 FATHER, Onset:50's - 60 Hereditary disease (HTN) 09 SISTER, Onset:40's - 50 History of - disorder (Urinary problems) 09 SISTER, Onset:60 years & older 09 SISTER, Onset:20's - 25 History of - respiratory disease (asthma) 09 SISTER Hypercholesterolemia 09 SISTER, Onset:50's - 60 Psychotic disorder (anxiety) 09 SISTER, Onset:30's - 40 Heart Disease Physical Exam Vital Signs Vital Signs - First Documented 02/21/22 10:51 Temp 36.2 Pulse 71 Resp 18 B/P (MAP) 122/89 (100) Pulse Ox 97 O2 Delivery Room Air Capillary Refill : Less Than 3 Seconds Height, Weight, BMI Height: 5'6.00" Weight: 220lbs. 10.0oz. 100.520700rc; 33.00 BMI Method:Estimated General Appearance: No Apparent Distress, WD/WN HEENT: PERRL/EOMI, TMs Normal, Normal ENT Inspection, Pharynx Normal Neck: Full Range of Motion, Normal Inspection, Non Tender, Supple Respiratory: Chest Non Tender, Lungs Clear, Normal Breath Sounds Cardiovascular: Regular Rate, Rhythm, No Edema, No Murmur, Normal Peripheral Pulses Gastrointestinal: Normal Bowel Sounds, Non Tender, Soft, Distended; No Mass, No Rebound, No Tenderness Back: Normal Inspection, No CVA Tenderness, No Vertebral Tenderness Extremity: Normal Capillary Refill, Normal Inspection, Normal Range of Motion, Non Tender Neurologic/Psychiatric: Alert, Oriented x3, No Motor/Sensory Deficits, Normal Mood/Affect, reading assistant II-XII Norm as Tested (grossly intact, no facial drooping or isolated weakness. Power LEs and UEs V/V. ) Progress/Results/Core Measures Suspected Sepsis SIRS Temperature: Pulse: 71 Respiratory Rate: 18 Laboratory Tests 02/21/22 10:55: White Blood Count 7.6 Blood Pressure 122 /89 Mean: 100 Laboratory Tests 02/21/22 10:55: Creatinine 1.55H, Platelet Count 144, Total Bilirubin 0.5 Results/Orders Lab Results Laboratory Tests Test 02/21/22 10:55 02/21/22 11:38 Range/Units White Blood Count 7.6 4.3-11.0 10^3/uL Red Blood Count 3.60 L 3.80-5.11 10^6/uL Hemoglobin 11.8 11.5-16.0 g/dL Hematocrit 35 35-52 % Mean Corpuscular Volume 98 80-99 fL Mean Corpuscular Hemoglobin 33 25-34 pg Mean Corpuscular Hemoglobin Concent 33 32-36 g/dL Red Cell Distribution Width 13.2 10.0-14.5 % Platelet Count 144 130-400 10^3/uL Mean Platelet Volume 11.3 9.0-12.2 fL Immature Granulocyte % (Auto) 1 % Neutrophils (%) (Auto) 66 42-75 % Lymphocytes (%) (Auto) 26 12-44 % Monocytes (%) (Auto) 5 0-12 % Eosinophils (%) (Auto) 2 0-10 % Basophils (%) (Auto) 0 0-10 % Neutrophils # (Auto) 5.0 1.8-7.8 10^3/uL Lymphocytes # (Auto) 2.0 1.0-4.0 10^3/uL Monocytes # (Auto) 0.4 0.0-1.0 10^3/uL Eosinophils # (Auto) 0.1 0.0-0.3 10^3/uL Basophils # (Auto) 0.0 0.0-0.1 10^3/uL Immature Granulocyte # (Auto) 0.1 0.0-0.1 10^3/uL Sodium Level 140 135-145 MMOL/L Potassium Level 4.7 3.6-5.0 MMOL/L Chloride Level 110 H 98-107 MMOL/L Carbon Dioxide Level 23 21-32 MMOL/L Anion Gap 7 5-14 MMOL/L Blood Urea Nitrogen 20 H 7-18 MG/DL Creatinine 1.55 H 0.60-1.30 MG/DL Estimat Glomerular Filtration Rate 37 BUN/Creatinine Ratio 13 Glucose Level 191 H 70-105 MG/DL Calcium Level 10.4 H 8.5-10.1 MG/DL Corrected Calcium 10.6 H 8.5-10.1 MG/DL Total Bilirubin 0.5 0.1-1.0 MG/DL Aspartate Amino Transf (AST/SGOT) 29 5-34 U/L Alanine Aminotransferase (ALT/SGPT) 40 0-55 U/L Alkaline Phosphatase 62 40-136 U/L Total Protein 6.7 6.4-8.2 GM/DL Albumin 3.8 3.2-4.5 GM/DL Urine Color YELLOW Urine Clarity CLEAR Urine pH 5.5 5-9 Urine Specific [place] >=1.030 1.016-1.022 Urine Protein 2+ H NEGATIVE Urine Glucose (UA) 2+ H NEGATIVE Urine Ketones NEGATIVE NEGATIVE Urine Nitrite NEGATIVE NEGATIVE Urine Bilirubin NEGATIVE NEGATIVE Urine Urobilinogen 0.2 < = 1.0 MG/DL Urine Leukocyte Esterase NEGATIVE NEGATIVE Urine RBC (Auto) NEGATIVE NEGATIVE Urine RBC NONE /HPF Urine WBC 2-5 /HPF Urine Squamous Epithelial Cells 10-25 H /HPF Urine Crystals NONE /LPF Urine Bacteria MODERATE H /HPF Urine Casts NONE /LPF Urine Mucus NEGATIVE /LPF Urine Culture Indicated YES My Orders Orders - MARLEN KAMINSKI Ua Culture If Indicated (02/21/22 11:10) Accucheck Stat ONCE (02/21/22 11:26) Cbc With Automated Diff (02/21/22 11:26) Comprehensive Metabolic Panel (02/21/22 11:26) Ed Iv/Invasive Line Start (02/21/22 11:26) Ns Iv 500 Ml (Sodium Chloride 0.9%) (02/21/22 11:30) Urine Culture (02/21/22 11:38) Cephalexin Capsule (Keflex Capsule) (02/21/22 12:04) Medications Given in ED Current Medications Medications Dose Ordered Sig/Masha Route Start Time Stop Time Status Last Admin Dose Admin Sodium Chloride 500 ml @ 0 mls/hr Q0M ONCE IV 02/21/22 11:30 02/21/22 11:31 DC 02/21/22 11:33 500 MLS/HR Vital Signs/I&O 02/21/22 10:51 Temp 36.2 Pulse 71 Resp 18 B/P (MAP) 122/89 (100) Pulse Ox 97 O2 Delivery Room Air Capillary Refill : Less Than 3 Seconds Blood Pressure Mean: 100 Progress Note : Time: 11:01 Progress Note pt assessed, will obtain UA, labs, NS 500 ml IV. Taking ice chips. No compl aints. 1200 UTI noted, Cr CL 29 (Creatinine 1.14-2.2 over last 12 months). Will give Keflex 500 mg PO now. Discharge instructions and return precautions noted. [facility] called to transport patient. Departure Impression Primary Impression: Generalized weakness Additional Impression: Urinary tract infection Qualified Codes: N30.00 - Acute cystitis without hematuria Disposition: HOME, SELF-CARE Condition: Improved Departure-Patient Inst. Decision time for Depature: 12:00 Referrals: PATRICE RODNEY MD (PCP/Family) Primary Care Physician Patient Instructions: Urinary Tract Infection, Adult (DC) Add. Discharge Instructions: Take antibiotics as prescribed. Increase water intake. Empty bladder every 2 hours while awake. Follow-up with your primary care provider if symptoms are not improving or worsen. Alternate Tylenol 650 mg and Ibuprofen 600 mg every 4 hours for pain or fever. Return to Emergency Dept for new,urgent healthcare needs. All discharge instructions reviewed with patient and/or family. Voiced understanding. Scripts Cephalexin (Cephalexin) 500 Mg Tablet 500 MG PO TID, #15 TAB 0 Refills Prov: MARLEN KAMINSKI 02/21/22 Copy Copies To 1: PATRICE RODNEY MD, AMY ARNP Feb 21, 2022 11:36
[2022-02-21 11:37] LABS: CALCIUM 10.4 MG/DL (8.5-10.1)
[2022-02-21 11:38] LABS: TOTAL PROTEIN 6.7 GM/DL (6.4-8.2)
[2022-02-21 11:40] LABS: BILIRUBIN,TOTAL 0.5 MG/DL (0.1-1.0)
[2022-02-21 11:41] LABS: CREATININE SERUM 1.55 MG/DL (0.60-1.30)
[2022-02-21 11:44] LABS: BILIRUBIN,URINE NEGATIVE (NEGATIVE); CLARITY,URINE CLEAR; COLOR,URINE YELLOW; GLUCOSE, URINE (UA) 2+ (NEGATIVE); KETONES,URINE NEGATIVE (NEGATIVE); LEUKOCYTE ESTERASE ,URINE NEGATIVE (NEGATIVE); NITRITE,URINE NEGATIVE (NEGATIVE); PH,URINE 5.5 (5-9); PROTEIN,URINE 2+ (NEGATIVE)
[2022-02-21 11:52] LABS: BACTERIA,URINE MODERATE /HPF
[2022-02-21] MEDS ORDERED: CEPHALEXIN 250 MG (KEFLEX) CAP PO STA (12:04)
[2022-02-21] MEDS ORDERED: CEPH500T PO (12:21)
[2022-02-21 13:07] VITALS: BP 138/80
== END 2022-02-21 13:07 | disposition home or self-care (01) ==
LOC: EDUNIT# 10:47 → ER 10:49
DX: N39.0 Urinary tract infection, site not specified (principal); E11.9 Type 2 diabetes mellitus without complications; Z79.4 Long term (current) use of insulin; Z87.442 Personal history of urinary calculi; Z88.1 Allergy status to other antibiotic agents
CPT/HCPCS: 36415; 80053; 81000; 85025; 87088

== ENCOUNTER 2022-03-03 13:30 | Emergency (ER) | payer MEDICARE, OTHER ==
[~2022-03-03] VITALS: Ht 170 cm; Wt 90.7 kg
[2022-03-03 13:30] VITALS: BP 179/115
--- NOTE | 2022-03-03 15:02 | ED Fall/Injury ---
General Chief Complaint: Trauma-Non Activation Stated Complaint: FALL Nursing Triage Note: PT STATES SHE WAS TRYING TO GET OUT OF BED THE WAY PT SHOWED HER AND SHE SLID OUT OF BED AND ONTO THE FLOOR. PT STATES SHE HIT HER HEAD AND IS ON BLOOD THINNERS. COMPLAINS OF BACK, TAILBONE, AND BILAT HEEL PAIN. Source: patient Exam Limitations: no limitations History of Present Illness Date Seen by Provider: Mar 03, 2022 Time Seen by Provider: 14:30 Initial Comments Here by EMS from [facility] with report of fall out of bed today. Apparently she was trying to get up to transfer when she slipped out of bed and landed on the floor. She states she hit her head several times as it bounced and then also landed on her pelvis. She is also complaining of bilateral knee pain from previous fall and has not been evaluated. States that she has been weak lately and is falling more. She just finished treatment for urinary tract infection but is not sure if that is better as she had episode of urge incontinence this morning that she normally only has when she has urinary tract infections. Denies nausea, vomiting, chest pain, breathing problems, sore throat, runny nose or cough. Occurred: just prior to arrival (Approximately 1 hour ago) Severity: mild Injuries/Pain Location: head, pelvis Context: slipped Loss of Consciousness: no loss of consciousness Modifying Factors: Improves With Immobilization; Worse With Movement Associated Symptoms (Fall): No Abdominal Pain, No Chest Pain; Headache; No Lightheadedness, No Nausea/Vomiting, No Neck Pain, No Shortness of Air Allergies and Home Medications Allergies Coded Allergies: codeine (Verified Allergy, Severe, SOA, pt has rec Lortab, Percocet, morphine in the past, 11/17/20) bupropion (Verified Allergy, Mild, 11/16/20) COUGH isosorbide (Verified Allergy, Mild, 11/16/20) COUGH levofloxacin (Verified Allergy, Mild, 11/16/20) COUGH ramipril (Verified Allergy, Mild, 11/16/20) COUGH celecoxib (Unverified Allergy, Unknown, 03/08/15) cinacalcet (Verified Allergy, Unknown, 03/07/20) clarithromycin (Verified Allergy, Unknown, 03/07/20) hydrocodone (Verified Adverse Reaction, Unknown, 11/16/20) HYPOTENSION Patient Home Medication List Home Medication List Reviewed: Yes Acetaminophen (Acetaminophen) 500 Mg Tablet, 1,000 MG PO Q6H PRN for PAIN-MILD (1-4) OR TEMPATURE, (Reported) Entered as Reported by: KIKO CABELLO on 11/16/20 0900 Allopurinol (Allopurinol) 100 Mg Tablet, 100 MG PO 1200, (Reported) Entered as Reported by: АНДРЙЕ MAK on 09/10/20 1148 Alprazolam (Alprazolam) 0.5 Mg Tablet, 0.5 MG PO HS, (Reported) Entered as Reported by: АНДРЕЙ MAK on 02/13/22 1437 Amlodipine Besylate (Amlodipine Besylate) 10 Mg Tablet, 10 MG PO 1200, ( Reported) Entered as Reported by: АНДРЕЙ MAK on 02/13/22 1437 Aspirin (Aspirin EC) 81 Mg Tablet.dr, 81 MG PO 1200, (Reported) Entered as Reported by: АНДРЕЙ MAK on 09/14/20 1539 Atorvastatin Calcium (Atorvastatin Calcium) 80 Mg Tablet, 80 MG PO HS, (Reported) Entered as Reported by: АНДРЕЙ MAK on 09/10/20 1148 Cephalexin (Cephalexin) 500 Mg Tablet, 500 MG PO TID Prescribed by: MARLEN KAMINSKI on 02/21/22 1221 Clopidogrel Bisulfate (Plavix) 75 Mg Tablet, 75 MG PO 1200, (Reported) Entered as Reported by: АНДРЕЙ MAK on 09/14/20 1539 Docusate Sodium (Docusate Sodium) 100 Mg Capsule, 100 MG PO BID Prescribed by: PATRICE RODNEY on 02/15/22 1201 Ergocalciferol (Vitamin D2) (Vitamin D2) 1,250 Mcg (60604 Unit) Capsule, 1,250 MCG PO WEEK, (Reported) Entered as Reported by: АНДРЕЙ MAK on 02/13/22 1437 Gabapentin (Gabapentin) 100 Mg Capsule, 100 MG PO HS, (Reported) Entered as Reported by: АНДРЕЙ MAK on 02/13/22 1437 Insulin NPH Human Isophane (Novolin N) 100 Unit/Ml Vial, 40 UNIT SQ HS, (Reported) Entered as Reported by: KIKO CABELLO on 11/16/20 0851 Insulin NPH Human Isophane (Novolin N) 100 Unit/Ml Vial, 35 UNIT SQ DAILY, (Reported) Entered as Reported by: KIKO CABELLO on 11/16/20 0851 Insulin Regular, Human (Humulin R) 100 Unit/Ml Soln, UNITS SQ TIDAC, (Reported) Entered as Reported by: KIKO CABELLO on 11/16/20 0851 Meclizine HCl (Meclizine HCl) 25 Mg Tablet, 25 MG PO BID PRN PRN for NAUSEA/VOMITING, (Reported) Entered as Reported by: KIKO CABELLO on 11/16/20 0900 Melatonin (Melatonin) 5 Mg Tablet, 5 MG PO HS, (Reported) Entered as Reported by: АНДРЕЙ MAK on 11/17/20 1307 Oxybutynin Chloride (Oxybutynin Chloride ER) 5 Mg Tab.er.24, 5 MG PO 1200, (Reported) Entered as Reported by: АНДРЕЙ MAK on 03/08/20 1331 Pantoprazole Sodium (Pantoprazole Sodium) 40 Mg Tablet.dr, 40 MG PO 1200, (Reported) Entered as Reported by: KIKO CABELLO on 11/16/20 0851 Ranolazine (Ranexa) 1,000 Mg Tab.er.12h, 1,000 MG PO BID, (Reported) Entered as Reported by: CARMELO PETERS on 08/26/18 1218 Sertraline HCl (Sertraline HCl) 25 Mg Tablet, 25 MG PO HS, (Reported) Entered as Reported by: АНДРЕЙ MAK on 03/08/20 1331 Review of Systems Review of Systems Constitutional: see HPI; No chills, No fever Eyes: No Symptoms Reported Ears, Nose, Mouth, Throat: no symptoms reported Respiratory: No cough, No short of breath Cardiovascular: No chest pain, No edema Gastrointestinal: No nausea, No vomiting Genitourinary: No frequency; incontinence (urge) Musculoskeletal: joint pain; No joint swelling; muscle pain Skin: lesions (Healing lesions bilateral knees); No rash Psychiatric/Neurological: Headache All Other Systems Reviewed Negative Unless Noted: Yes Past Ehupwki-Wunsvj-Fpmxdf Hx Patient Social History Tobacco Use?: No Substance use?: No Alcohol Use?: No Immunizations Up To Date Tetanus Booster (TDap): Unknown First/Initial COVID19 Vaccinat: 2020 Second COVID19 Vaccination Phill: 2021 Third COVID19 Vaccination Date: UNKNOWN COVID19 Vaccine Epic Trainer: UNKNOWN Seasonal Allergies Seasonal Allergies: No Past Medical History Surgery/Hospitalization HX: PT HAS HX OF LEFT TOTAL HIP SURGERY, GALLBLADDER, TOTAL HYST, PMH; TYPE 2 DM, HTN Surgeries: Yes (HYSTERECTOMY 1997, LAP. PRIETO 5-6 YRS. AGO, T&A-49 YRS. 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 Sexually Transmitted Disease: No HIV/AIDS: No Genitourinary: Yes (CHRONIC KIDNEY DISEASE) Kidney Stones, Renal Failure Gastrointestinal: Yes (GASTROPARESIS) Gastroesophageal Reflux, Chronic Constipation Musculoskeletal: Yes (HISTORY OF FALLS/WEAKNESS) Osteoporosis, Arthritis, Back Injury Endocrine: Yes Diabetes, Insulin dep HEENT: Yes (CHRONIC BLURRINESS OF RT EYE) Chronic Ear Infection Hearing Impairment: Hard of Hearing Cancer: No Psychosocial: Yes Sleep Difficulties, Anxiety, Depression Integumentary: Yes Psoriasis Blood Disorders: No Adverse Reaction/Blood Tranf: No Family Medical History Reviewed Nursing Family Hx Cancer (lung and ovarian) 09 BROTHER, Onset:30's - 40 09 SISTER, Onset:60 years & older Congenital heart disease (mitral valve prolapse) 09 SISTER 09 SISTER Congestive heart failure 03 FATHER, Onset:60 years & older 03 MOTHER, Onset:50's - 60 09 SISTER, Onset:60 years & older Family history: Arthritis 03 MOTHER, Onset:60 years & older Family history: Diabetes mellitus 03 FATHER, Onset:60 years & older 09 SISTER, Onset:50's - 60 Family history: Gastrointestinal disease 03 FATHER, Onset:50's - 60 Hereditary disease (HTN) 09 SISTER, Onset:40's - 50 History of - disorder (Urinary problems) 09 SISTER, Onset:60 years & older 09 SISTER, Onset:20's - 25 History of - respiratory disease (asthma) 09 SISTER Hypercholesterolemia 09 SISTER, Onset:50's - 60 Psychotic disorder (anxiety) 09 SISTER, Onset:30's - 40 Heart Disease Physical Exam Vital Signs Vital Signs - First Documented 03/03/22 13:30 Temp 36.3 Pulse 86 Resp 16 B/P (MAP) 179/115 (136) Pulse Ox 95 O2 Delivery Room Air Capillary Refill : Less Than 3 Seconds Height, Weight, BMI Height: 5'6.00" Weight: 220lbs. 10.0oz. 100.251141qt; 31.00 BMI Method:Estimated General Appearance: WD/WN, no apparent distress HEENT: PERRL/EOMI, pharynx normal Neck: full range of motion, supple Cardiovascular: regular rate, rhythm, no murmur Respiratory: lungs clear, normal breath sounds Gastrointestinal: non tender, soft Extremities: pelvis stable, other (Mild tenderness both knees without sig nificant swelling. Healing abrasions anterior knees bilateral.) Neurologic/Psychiatric: alert, oriented x 3 Skin: normal color, warm/dry Progress/Results/Core Measures Results/Orders Lab Results Laboratory Tests Test 03/03/22 14:30 03/03/22 15:16 Range/Units White Blood Count 6.5 4.3-11.0 10^3/uL Red Blood Count 3.83 3.80-5.11 10^6/uL Hemoglobin 12.7 11.5-16.0 g/dL Hematocrit 37 35-52 % Mean Corpuscular Volume 97 80-99 fL Mean Corpuscular Hemoglobin 33 25-34 pg Mean Corpuscular Hemoglobin Concent 34 32-36 g/dL Red Cell Distribution Width 13.7 10.0-14.5 % Platelet Count 154 130-400 10^3/uL Mean Platelet Volume 10.5 9.0-12.2 fL Immature Granulocyte % (Auto) 1 % Neutrophils (%) (Auto) 66 42-75 % Lymphocytes (%) (Auto) 26 12-44 % Monocytes (%) (Auto) 6 0-12 % Eosinophils (%) (Auto) 1 0-10 % Basophils (%) (Auto) 1 0-10 % Neutrophils # (Auto) 4.3 1.8-7.8 X 10^3 Lymphocytes # (Auto) 1.7 1.0-4.0 X 10^3 Monocytes # (Auto) 0.4 0.0-1.0 X 10^3 Eosinophils # (Auto) 0.1 0.0-0.3 10^3/uL Basophils # (Auto) 0.0 0.0-0.1 10^3/uL Immature Granulocyte # (Auto) 0.0 0.0-0.1 10^3/uL Sodium Level 141 135-145 MMOL/L Potassium Level 4.4 3.6-5.0 MMOL/L Chloride Level 107 98-107 MMOL/L Carbon Dioxide Level 25 21-32 MMOL/L Anion Gap 9 5-14 MMOL/L Blood Urea Nitrogen 15 7-18 MG/DL Creatinine 1.50 H 0.60-1.30 MG/DL Estimat Glomerular Filtration Rate 38 BUN/Creatinine Ratio 10 Glucose Level 177 H 70-105 MG/DL Calcium Level 10.3 H 8.5-10.1 MG/DL Corrected Calcium 10.5 H 8.5-10.1 MG/DL Total Bilirubin 0.7 0.1-1.0 MG/DL Aspartate Amino Transf (AST/SGOT) 20 5-34 U/L Alanine Aminotransferase (ALT/SGPT) 22 0-55 U/L Alkaline Phosphatase 67 40-136 U/L C-Reactive Protein High Sensitivity 0.27 0.00-0.50 MG/DL Total Protein 6.8 6.4-8.2 GM/DL Albumin 3.8 3.2-4.5 GM/DL Urine Color YELLOW Urine Clarity CLEAR Urine pH 6.0 5-9 Urine Specific [place] 1.025 H 1.016-1.022 Urine Protein 2+ H NEGATIVE Urine Glucose (UA) 1+ H NEGATIVE Urine Ketones NEGATIVE NEGATIVE Urine Nitrite NEGATIVE NEGATIVE Urine Bilirubin NEGATIVE NEGATIVE Urine Urobilinogen 0.2 < = 1.0 MG/DL Urine Leukocyte Esterase TRACE H NEGATIVE Urine RBC (Auto) TRACE-I H NEGATIVE Urine RBC 0-2 /HPF Urine WBC 0-2 /HPF Urine Squamous Epithelial Cells 0-2 /HPF Urine Crystals NONE /LPF Urine Bacteria NEGATIVE /HPF Urine Casts NONE /LPF Urine Mucus NEGATIVE /LPF Urine Culture Indicated NO My Orders Orders - SANYA GARCIA MD Ct Head Wo (03/03/22 14:40) Pelvis 1 To 2 Views (03/03/22 14:40) Cbc With Automated Diff (03/03/22 14:40) Comprehensive Metabolic Panel (03/03/22 14:40) Hs C Reactive Protein (03/03/22 14:40) Ua Culture If Indicated (03/03/22 14:40) Knee, Bilateral, W/[place] 4v. (03/03/22 14:43) Vital Signs/I&O 03/03/22 13:30 Temp 36.3 Pulse 86 Resp 16 B/P (MAP) 179/115 (136) Pulse Ox 95 O2 Delivery Room Air Blood Pressure Mean: 136 Progress Progress Note : Progress Note Seen and evaluated. We will check CT of the head due to fall and head injury while on Plavix and aspirin. We will also get pelvic x-ray due to tailbone pain. She was able to sit up with assistance on her tailbone without significant pain. We will check x-ray of bilateral knees is records reviewed reveals we have not checked that recently. We will check basic labs including CBC and CMP as well as CRP and UA due to history of frequent urinary tract infections and weakness that she is encountering this week. Monitor patient. 1551: CT head negative. X-ray bilateral knees negative. Pending results of pelvic x-ray. On my interpretation, there is no acute fracture of the pelvis or bilateral hips on single view x-ray. Does have hip replacement on the left hip. Pending radiology report. Labs reviewed and CBC normal, UA does not show urinary tract infection and chemistry does not show any significant abnormalities. Creatinine noted to be 1.5 which is in line with her typical 1.4-2.2 monitor patient. Glucose is slightly elevated in a known diabetic. 1640: Pelvis x-ray shows no acute fracture. Overall patient is doing better and is encouraged about testing. Discharged back to nursing facility. Patient verbalized understanding instructions and agreement with plan. Diagnostic Imaging Diagonstic Imaging: CT Plain Films/CT/US/NM/MRI: head Comments [facility]. [place], [place] NAME: CARMELA CARVALHO [facility] REC#: [id number] PT STATUS: REG ER : 1955 PHYSICIAN: SANYA GARCIA MD ADMIT DATE: 03/03/22/ER Signed Date of Exam:03/03/22 CT HEAD WO EXAMINATION: CT head without contrast. TECHNIQUE: Multiple contiguous axial images were obtained through the brain without the use of intravenous contrast. All CT scans use one or more of the following dose optimizing techniques: automated exposure control, MA and/or KvP adjustment based on patient size and exam type or iterative reconstruction. HISTORY: Fall. Head pain. On blood thinners. COMPARISON: 09/09/2020. FINDINGS: No large acute territorial ischemia, mass, or hemorrhage. No midline shift or mass effect. Scattered areas of decreased attenuation are seen in the periventricular and subcortical white matter. The ventricles, cortical sulci, and basilar cisterns are patent and unremarkable. The orbits are normal. Paranasal sinuses are normal. Mastoid air cells are clear. No soft tissue abnormality is seen. No osseus lesions or fractures are seen. IMPRESSION: 1. No large acute territorial ischemia, mass, or hemorrhage. 2. Chronic microvascular disease. Dictated by: Dictated on workstation # [id number] Dict: 03/03/22 1526 Trans: 03/03/22 1529 CVB [id number] Interpreted by: BLAYNE SALGADO DO Electronically signed by: BLAYNE SALGADO DO 03/03/22 1529 Diagonstic Imaging: Xray Plain Films/CT/US/NM/MRI: knee Comments [facility] [place] NAME: CARMELA CARVALHO [facility] REC#: [id number] PT STATUS: REG ER : 1955 PHYSICIAN: SANYA GARCIA MD ADMIT DATE: 03/03/22/ER Draft Date of Exam:03/03/22 KNEE, BILATERAL, W/[place] 4V. EXAMINATION: Left knee radiographs, 4 views. Right knee radiographs, 4 views. COMPARISON: None. HISTORY: 66-year-old female, fall. Bilateral knee pain. FINDINGS: There is degenerative type patellar enthesopathy bilaterally. The joint spaces are fairly well preserved. There is no knee joint effusion. There are vascular calcifications. There is no identified acute fracture. The right and left patella are unremarkable in position. There is chondrocalcinosis. There is nonspecific fairly diffuse soft tissue swelling. IMPRESSION: 1. No identified acute bony abnormality of the left or right knees. Dictated on workstation # [id number] Dict: 03/03/22 1542 Trans: 03/03/22 1544 CVB [id number] Interpreted by: JOSE VERAS MD Electronically signed by: [employer] Imaging: Xray Plain Films/CT/US/NM/MRI: pelvis Comments [facility] [place] NAME: CARMELA CARVALHO [facility] REC#: [id number] PT STATUS: REG ER : 1955 PHYSICIAN: SANYA GARCIA MD ADMIT DATE: 03/03/22/ER Signed Date of Exam:03/03/22 PELVIS 1 TO 2 VIEWS INDICATION: Pelvic pain post fall TECHNIQUE: AP pelvis 3:33 PM CORRELATION STUDY: 11/14/2020 FINDINGS: Pelvis rotated towards the left. There has been interval surgical changes with removal of the 3 screws and placement of a left hip arthroplasty. There is no evidence for an acute displaced pelvic fracture. Right hip unremarkable. Iliac crest incompletely imaged on this study. IMPRESSION: Negative for acute fracture of the pelvis. Dictated by: Dictated on workstation # [id number] Dict: 03/03/22 1544 Trans: 03/03/22 1624 [facility] [id number] Interpreted by: AMBROCIO MAGUIRE DO Electronically signed by: AMBROCIO MAGUIRE DO 03/03/22 1624 Departure Impression Primary Impression: Fall Qualified Codes: W19.XXXA - Unspecified fall, initial encounter Additional Impression: Minor head injury Qualified Codes: S09.90XA - Unspecified injury of head, initial encounter Disposition: 01 HOME, SELF-CARE Condition: Stable Departure-Patient Inst. Decision time for Depature: 16:41 Referrals: PATRICE RODNEY MD (PCP/Family) Primary Care Physician Patient Instructions: Minor Head Injury, Adult ED Add. Discharge Instructions: All discharge instructions reviewed with patient and/or family. Voiced und erstanding. Continue previous medications as prescribed. Continue previous diet as ordered. You should probably ask for assistance over the next few days when getting up to help prevent falls. Return for other concerns as needed. Follow-up with your doctor in a few days for recheck as needed. SANYA GARCIA MD Mar 03, 2022 15:02
[2022-03-03 15:07] LABS: BASOPHILS % (AUTO) 1 % (0-10); EOSINOPHILS # (AUTO) 0.1 10^3/uL (0.0-0.3); EOSINOPHILS % (AUTO) 1 % (0-10); HEMATOCRIT 37 % (35-52); HEMOGLOBIN 12.7 g/dL (11.5-16.0); LYMPHOCYTES # (AUTO) 1.7 X 10^3 (1.0-4.0); LYMPHOCYTES % (AUTO) 26 % (12-44); MEAN CORPUSCULAR HEMOGLOBIN 33 pg (25-34); MEAN CORPUSCULAR HGB CONC 34 g/dL (32-36); MEAN CORPUSCULAR VOLUME 97 fL (80-99); MEAN PLATELET VOLUME 10.5 fL (9.0-12.2); MONOCYTES # (AUTO) 0.4 X 10^3 (0.0-1.0); MONOCYTES % (AUTO) 6 % (0-12); NEUTROPHILS # (AUTO) 4.3 X 10^3 (1.8-7.8); NEUTROPHILS % (AUTO) 66 % (42-75); PLATELET COUNT 154 10^3/uL (130-400); WHITE BLOOD COUNT 6.5 10^3/uL (4.3-11.0)
[2022-03-03 15:13] LABS: ALBUMIN 3.8 GM/DL (3.2-4.5); POTASSIUM 4.4 MMOL/L (3.6-5.0)
[2022-03-03 15:14] LABS: CALCIUM 10.3 MG/DL (8.5-10.1)
[2022-03-03 15:16] LABS: TOTAL PROTEIN 6.8 GM/DL (6.4-8.2)
[2022-03-03 15:17] LABS: BILIRUBIN,TOTAL 0.7 MG/DL (0.1-1.0)
[2022-03-03 15:19] LABS: CREATININE SERUM 1.5 MG/DL (0.60-1.30)
[2022-03-03 15:28] LABS: BILIRUBIN,URINE NEGATIVE (NEGATIVE); CLARITY,URINE CLEAR; COLOR,URINE YELLOW; GLUCOSE, URINE (UA) 1+ (NEGATIVE); KETONES,URINE NEGATIVE (NEGATIVE); LEUKOCYTE ESTERASE ,URINE TRACE (NEGATIVE); NITRITE,URINE NEGATIVE (NEGATIVE); PROTEIN,URINE 2+ (NEGATIVE)
--- NOTE | 2022-03-03 15:29 | Diagnostic Imaging Report ---
EXAMINATION: CT head without contrast. TECHNIQUE: Multiple contiguous axial images were obtained through the brain without the use of intravenous contrast. All CT scans use one or more of the following dose optimizing techniques: automated exposure control, MA and/or KvP adjustment based on patient size and exam type or iterative reconstruction. HISTORY: Fall. Head pain. On blood thinners. COMPARISON: 09/09/2020. FINDINGS: No large acute territorial ischemia, mass, or hemorrhage. No midline shift or mass effect. Scattered areas of decreased attenuation are seen in the periventricular and subcortical white matter. The ventricles, cortical sulci, and basilar cisterns are patent and unremarkable. The orbits are normal. Paranasal sinuses are normal. Mastoid air cells are clear. No soft tissue abnormality is seen. No osseus lesions or fractures are seen. IMPRESSION: 1. No large acute territorial ischemia, mass, or hemorrhage. 2. Chronic microvascular disease. Dictated by: Dictated on workstation # [id number]
[2022-03-03 15:40] LABS: BACTERIA,URINE NEGATIVE /HPF; RBC,URINE 0-2 /HPF; SQUAMOUS EPITHELIAL CELL,UR 0-2 /HPF; WBC,URINE 0-2 /HPF
--- NOTE | 2022-03-03 15:45 | Diagnostic Imaging Report ---
EXAMINATION: Left knee radiographs, 4 views. Right knee radiographs, 4 views. COMPARISON: None. HISTORY: 66-year-old female, fall. Bilateral knee pain. FINDINGS: There is degenerative type patellar enthesopathy bilaterally. The joint spaces are fairly well preserved. There is no knee joint effusion. There are vascular calcifications. There is no identified acute fracture. The right and left patella are unremarkable in position. There is chondrocalcinosis. There is nonspecific fairly diffuse soft tissue swelling. IMPRESSION: 1. No identified acute bony abnormality of the left or right knees. Dictated by: Dictated on workstation # [id number]
--- NOTE | 2022-03-03 15:49 | Diagnostic Imaging Report ---
INDICATION: Pelvic pain post fall TECHNIQUE: AP pelvis 3:33 PM CORRELATION STUDY: 11/14/2020 FINDINGS: Pelvis rotated towards the left. There has been interval surgical changes with removal of the 3 screws and placement of a left hip arthroplasty. There is no evidence for an acute displaced pelvic fracture. Right hip unremarkable. Iliac crest incompletely imaged on this study. IMPRESSION: Negative for acute fracture of the pelvis. Dictated by: Dictated on workstation # [id number]
== END 2022-03-03 17:23 | disposition home or self-care (01) ==
LOC: EDUNIT# 13:30 → ER 13:31
DX: S09.90XA Unspecified injury of head, initial encounter (principal); S80.212A Abrasion, left knee, initial encounter; S80.211A Abrasion, right knee, initial encounter; Z79.01 Long term (current) use of anticoagulants; Z79.82 Long term (current) use of aspirin; E11.43 Type 2 diabetes mellitus with diabetic autonomic (poly)neuropathy; E11.9 Type 2 diabetes mellitus without complications; K31.84 Gastroparesis; Z79.4 Long term (current) use of insulin; W06.XXXA Fall from bed, initial encounter; Y92.129 Unspecified place in nursing home as the place of occurrence of the external cause
CPT/HCPCS: 36415; 70450; 72170; 80053; 81000; 85025; 86141; 99283

== ENCOUNTER 2022-05-07 11:49 | Emergency (ER) | payer MEDICARE, OTHER ==
[2022-05-07] MEDS ORDERED: NS IV 1000 ML 1,000 ML IV SCH (12:15)
[2022-05-07 12:38] LABS: BASOPHILS % (AUTO) 0 % (0-10); EOSINOPHILS # (AUTO) 0.1 10^3/uL (0.0-0.3); EOSINOPHILS % (AUTO) 1 % (0-10); HEMATOCRIT 37 % (35-52); HEMOGLOBIN 12.7 g/dL (11.5-16.0); LYMPHOCYTES # (AUTO) 2.1 10^3/uL (1.0-4.0); LYMPHOCYTES % (AUTO) 28 % (12-44); MEAN CORPUSCULAR HEMOGLOBIN 33 pg (25-34); MEAN CORPUSCULAR HGB CONC 35 g/dL (32-36); MEAN CORPUSCULAR VOLUME 94 fL (80-99); MEAN PLATELET VOLUME 11.8 fL (9.0-12.2); MONOCYTES # (AUTO) 0.4 10^3/uL (0.0-1.0); MONOCYTES % (AUTO) 6 % (0-12); NEUTROPHILS # (AUTO) 4.8 10^3/uL (1.8-7.8); NEUTROPHILS % (AUTO) 64 % (42-75); PLATELET COUNT 173 10^3/uL (130-400); WHITE BLOOD COUNT 7.5 10^3/uL (4.3-11.0)
--- NOTE | 2022-05-07 12:39 | Diagnostic Imaging Report ---
EXAMINATION: Left knee radiographs, 3 views. Right knee radiographs, 3 views. COMPARISON: None. HISTORY: 67-year-old female, fall. Bilateral knee pain. FINDINGS: There is chondrocalcinosis. There is no right or left knee joint effusion. There is degenerative type patellar enthesopathy bilaterally. The bones appear potentially demineralized. There are vascular related calcifications. There is no identified acute fracture. There is moderate to severe medial compartment joint space loss of the left knee. The joint spaces are well preserved on the right. There is diffuse subcutaneous edema. IMPRESSION: 1. No identified acute bony abnormality of the right or left knee. 2. Chronic findings as above. Dictated by: Dictated on workstation # [id number]
--- NOTE | 2022-05-07 12:45 | ED Fall/Injury ---
General Chief Complaint: Trauma-Non Activation Stated Complaint: FALL Nursing Triage Note: PT BROUGHT IN BY [facility] FROM [facility] WITH COMPLAINT OF FALL. PT STATES SHE WAS GETTING INTO VEHCILE WHEN SHE FELL, LANDING ON KNEES. COMPLAINING OF BILATERAL KNEE PAIN. History of Present Illness Date Seen by Provider: May 07, 2022 Time Seen by Provider: 11:50 Initial Comments 67 year old female, resident of [facility], reports she fell while getting into friends car for lunch. She has multiple comorbidities and her legs will get weak at times, causing her to fall. She reports easing herself to the g round but feels both knees took the major impact. Fall was witnessed by 2 friends. She denies LOC of head injury. She has Linq implanted monitor at this time, being followed by cardiology. She is diabetic and her monitor shows glucose in the 450s since 9:00 am. She took 30 units NPH this morning, over the last 3-4 days, her glucose monitor shows 150s-450s. EMS was called and she was brought here. She denies chest pain, palpitations, SOA, headache, nausea/vomiting, or other complaints. She had a left hip fx, that was pinned, then converted to hip arthroplasty. Occurred: just prior to arrival Severity: mild Injuries/Pain Location: lower extremity (bilat knees) Loss of Consciousness: no loss of consciousness Associated Symptoms (Fall): Denies Symptoms; No Abdominal Pain, No Chest Pain, No Confusion, No Dizziness, No Headache, No Muscle Spasms, No Nausea/Vomiting, No Neck Pain, No Shortness of Air, No Slurred Speech; Trouble Walking (due to knee pain from fall); No Vision Changes Allergies and Home Medications Allergies Coded Allergies: codeine (Verified Allergy, Severe, SOA, pt has rec Lortab, Percocet, morphine in the past, 11/17/20) bupropion (Verified Allergy, Mild, 11/16/20) COUGH isosorbide (Verified Allergy, Mild, 11/16/20) COUGH levofloxacin (Verified Allergy, Mild, 11/16/20) COUGH ramipril (Verified Allergy, Mild, 11/16/20) COUGH celecoxib (Unverified Allergy, Unknown, 03/08/15) cinacalcet (Verified Allergy, Unknown, 03/07/20) clarithromycin (Verified Allergy, Unknown, 03/07/20) hydrocodone (Verified Adverse Reaction, Unknown, 11/16/20) HYPOTENSION Patient Home Medication List Home Medication List Reviewed: Yes Acetaminophen (Acetaminophen) 500 Mg Tablet, 1,000 MG PO Q6H PRN for PAIN-MILD (1-4) OR TEMPATURE, (Reported) Entered as Reported by: KIKO CABELLO on 11/16/20 0900 Allopurinol (Allopurinol) 100 Mg Tablet, 100 MG PO 1200, (Reported) Entered as Reported by: АНДРЕЙ MAK on 09/10/20 1148 Alprazolam (Alprazolam) 0.5 Mg Tablet, 0.5 MG PO HS, (Reported) Entered as Reported by: АНДРЕЙ MAK on 02/13/22 1437 Amlodipine Besylate (Amlodipine Besylate) 10 Mg Tablet, 10 MG PO 1200, (Reported) Entered as Reported by: АНДРЕЙ MAK on 02/13/22 1437 Aspirin (Aspirin EC) 81 Mg Tablet.dr, 81 MG PO 1200, (Reported) Entered as Reported by: АНДРЕЙ MAK on 09/14/20 1539 Atorvastatin Calcium (Atorvastatin Calcium) 80 Mg Tablet, 80 MG PO HS, (Reported) Entered as Reported by: АНДРЕЙ MAK on 09/10/20 1148 Cephalexin (Cephalexin) 500 Mg Tablet, 500 MG PO TID Prescribed by: MARLEN KAMINSKI on 02/21/22 1221 Clopidogrel Bisulfate (Plavix) 75 Mg Tablet, 75 MG PO 1200, (Reported) Entered as Reported by: АНДРЕЙ MAK on 09/14/20 1539 Docusate Sodium (Docusate Sodium) 100 Mg Capsule, 100 MG PO BID Prescribed by: PATRICE RODNEY on 02/15/22 1201 Ergocalciferol (Vitamin D2) (Vitamin D2) 1,250 Mcg (97825 Unit) Capsule, 1,250 MCG PO WEEK, (Reported) Entered as Reported by: АНДРЕЙ MAK on 02/13/22 1437 Gabapentin (Gabapentin) 100 Mg Capsule, 100 MG PO HS, (Reported) Entered as Reported by: АНДРЕЙ MAK on 02/13/22 1437 Insulin NPH Human Isophane (Novolin N) 100 Unit/Ml Vial, 40 UNIT SQ HS, (Reported) Entered as Reported by: KIKO CABELLO on 11/16/20 0851 Insulin NPH Human Isophane (Novolin N) 100 Unit/Ml Vial, 35 UNIT SQ DAILY, (Reported) Entered as Reported by: KIKO CABELLO on 11/16/20 0851 Insulin Regular, Human (Humulin R) 100 Unit/Ml Soln, UNITS SQ TIDAC, (Reported) Entered as Reported by: KIKO CABELLO on 11/16/20 0851 Meclizine HCl (Meclizine HCl) 25 Mg Tablet, 25 MG PO BID PRN PRN for NAUSEA/VOMITING, (Reported) Entered as Reported by: KIKO CABELLO on 11/16/20 0900 Melatonin (Melatonin) 5 Mg Tablet, 5 MG PO HS, (Reported) Entered as Reported by: АНДРЕЙ MAK on 11/17/20 1307 Oxybutynin Chloride (Oxybutynin Chloride ER) 5 Mg Tab.er.24, 5 MG PO 1200, (Reported) Entered as Reported by: АНДРЕЙ MAK on 03/08/20 1331 Pantoprazole Sodium (Pantoprazole Sodium) 40 Mg Tablet.dr, 40 MG PO 1200, (Reported) Entered as Reported by: KIKO CABELLO on 11/16/20 0851 Ranolazine (Ranexa) 1,000 Mg Tab.er.12h, 1,000 MG PO BID, (Reported) Entered as Reported by: CARMELO PETERS on 08/26/18 1218 Sertraline HCl (Sertraline HCl) 25 Mg Tablet, 25 MG PO HS, (Reported) Entered as Reported by: АНДРЕЙ MAK on 03/08/20 1331 Review of Systems Review of Systems Constitutional: no symptoms reported, see HPI Musculoskeletal: see HPI, joint pain (bilat knee pain from fall) All Other Systems Reviewed Negative Unless Noted: Yes Past Dmabsfw-Aiwzml-Wrritw Hx Patient Social History Tobacco Use?: No Use of E-Cig and/or Vaping dev: No Substance use?: No Alcohol Use?: No Pt feels they are or have been: No Immunizations Up To Date Tetanus Booster (TDap): Unknown First/Initial COVID19 Vaccinat: UNKNOWN Second COVID19 Vaccination Phill: UNKNOWN Third COVID19 Vaccination Date: UNKNOWN Seasonal Allergies Seasonal Allergies: No Past Medical History Surgery/Hospitalization HX: PT HAS HX OF LEFT TOTAL HIP SURGERY, GALLBLADDER, TOTAL HYST, PMH; TYPE 2 DM, HTN Surgeries: Yes (HYSTERECTOMY 1997, LAP. PRIETO 5-6 YRS. AGO, T&A-49 YRS. 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 Sexually Transmitted Disease: No HIV/AIDS: No Genitourinary: Yes (CHRONIC KIDNEY DISEASE) Kidney Stones, Renal Failure Gastrointestinal: Yes (GASTROPARESIS) Gastroesophageal Reflux, Chronic Constipation Musculoskeletal: Yes (HISTORY OF FALLS/WEAKNESS) Osteoporosis, Arthritis, Back Injury Endocrine: Yes Diabetes, Insulin dep HEENT: Yes (CHRONIC BLURRINESS OF RT EYE) Chronic Ear Infection Hearing Impairment: Hard of Hearing Cancer: No Psychosocial: Yes Sleep Difficulties, Anxiety, Depression Integumentary: Yes Psoriasis Blood Disorders: No Adverse Reaction/Blood Tranf: No Family Medical History Reviewed Nursing Family Hx Cancer (lung and ovarian) 09 BROTHER, Onset:30's - 40 09 SISTER, Onset:60 years & older Congenital heart disease (mitral valve prolapse) 09 SISTER 09 SISTER Congestive heart failure 03 FATHER, Onset:60 years & older 03 MOTHER, Onset:50's - 60 09 SISTER, Onset:60 years & older Family history: Arthritis 03 MOTHER, Onset:60 years & older Family history: Diabetes mellitus 03 FATHER, Onset:60 years & older 09 SISTER, Onset:50's - 60 Family history: Gastrointestinal disease 03 FATHER, Onset:50's - 60 Hereditary disease (HTN) 09 SISTER, Onset:40's - 50 History of - disorder (Urinary problems) 09 SISTER, Onset:60 years & older 09 SISTER, Onset:20's - 25 History of - respiratory disease (asthma) 09 SISTER Hypercholesterolemia 09 SISTER, Onset:50's - 60 Psychotic disorder (anxiety) 09 SISTER, Onset:30's - 40 Heart Disease Physical Exam Vital Signs Vital Signs - First Documented 05/07/22 11:51 Pulse 69 Resp 17 B/P (MAP) 99/76 (84) Pulse Ox 99 O2 Delivery Room Air Capillary Refill : Less Than 3 Seconds Height, Weight, BMI Height: 5'6.00" Weight: 220lbs. 10.0oz. 100.384284aj; 31.00 BMI Method:Estimated General Appearance: WD/WN, no apparent distress HEENT: PERRL/EOMI, normal ENT inspection, TMs normal, pharynx normal Neck: non-tender, full range of motion, supple, normal inspection Cardiovascular: normal peripheral pulses, regular rate, rhythm Respiratory: chest non-tender, lungs clear Gastrointestinal: normal bowel sounds, non tender, soft Extremities: normal range of motion, no pedal edema Neurologic/Psychiatric: no motor/sensory deficits, alert, normal mood/affect, oriented x 3 Skin: normal color, warm/dry, other (no abrasions, lacerations to bilat knees. ) Progress/Results/Core Measures Results/Orders Lab Results Laboratory Tests Test 05/07/22 12:23 05/07/22 12:59 Range/Units White Blood Count 7.5 4.3-11.0 10^3/uL Red Blood Count 3.88 3.80-5.11 10^6/uL Hemoglobin 12.7 11.5-16.0 g/dL Hematocrit 37 35-52 % Mean Corpuscular Volume 94 80-99 fL Mean Corpuscular Hemoglobin 33 25-34 pg Mean Corpuscular Hemoglobin Concent 35 32-36 g/dL Red Cell Distribution Width 12.8 10.0-14.5 % Platelet Count 173 130-400 10^3/uL Mean Platelet Volume 11.8 9.0-12.2 fL Immature Granulocyte % (Auto) 1 % Neutrophils (%) (Auto) 64 42-75 % Lymphocytes (%) (Auto) 28 12-44 % Monocytes (%) (Auto) 6 0-12 % Eosinophils (%) (Auto) 1 0-10 % Basophils (%) (Auto) 0 0-10 % Neutrophils # (Auto) 4.8 1.8-7.8 10^3/uL Lymphocytes # (Auto) 2.1 1.0-4.0 10^3/uL Monocytes # (Auto) 0.4 0.0-1.0 10^3/uL Eosinophils # (Auto) 0.1 0.0-0.3 10^3/uL Basophils # (Auto) 0.0 0.0-0.1 10^3/uL Immature Granulocyte # (Auto) 0.1 0.0-0.1 10^3/uL Sodium Level 134 L 135-145 MMOL/L Potassium Level 4.5 3.6-5.0 MMOL/L Chloride Level 100 98-107 MMOL/L Carbon Dioxide Level 24 21-32 MMOL/L Anion Gap 10 5-14 MMOL/L Blood Urea Nitrogen 24 H 7-18 MG/DL Creatinine 2.12 H 0.60-1.30 MG/DL Estimat Glomerular Filtration Rate 25 BUN/Creatinine Ratio 11 Glucose Level 443 *H 70-105 MG/DL Calcium Level 9.7 8.5-10.1 MG/DL Corrected Calcium 10.2 H 8.5-10.1 MG/DL Total Bilirubin 0.5 0.1-1.0 MG/DL Aspartate Amino Transf (AST/SGOT) 12 5-34 U/L Alanine Aminotransferase (ALT/SGPT) 14 0-55 U/L Alkaline Phosphatase 61 40-136 U/L B-Type Natriuretic Peptide 81.2 <100.0 PG/ML Total Protein 6.3 L 6.4-8.2 GM/DL Albumin 3.4 3.2-4.5 GM/DL Glucometer 364 H 70-110 MG/DL My Orders Orders - MARLEN KAMINSKI Bnp Faisal (05/07/22 12:02) Cbc With Automated Diff (05/07/22 12:02) Comprehensive Metabolic Panel (05/07/22 12:02) Ed Iv/Invasive Line Start (05/07/22 12:02) Ns Iv 1000 Ml (Sodium Chloride 0.9%) (05/07/22 12:15) Knee, 3 Views, Bilateral (05/07/22 12:02) Accucheck Stat ONCE (05/07/22 12:57) Acetaminophen Tablet/Caplet (Tylenol T (05/07/22 12:57) Insulin (Regular) Human (Novolin R (Per (05/07/22 13:09) Vital Signs/I&O 05/07/22 11:51 Pulse 69 Resp 17 B/P (MAP) 99/76 (84) Pulse Ox 99 O2 Delivery Room Air Blood Pressure Mean: 84 Progress Progress Note : Time: 11:50 Progress Note patient assessed, will check labs, x-rays both knees, 1 L NS per IV. Patient taking ice chips. B/P 99/76. Reports taking all her morning medications. 1220 B/P 108/74, no further complaints. 1245 124/72. X-rays show no acute findings from fall. 1300 accucheck 346, continuing to take ice chips. Requested tylenol for pain. Will give Reg Insulin 4 units and recheck glucose, then plan discharge. 1330 B/P 126/79. per patient's glucose monitor, 320. She will continue to monitor and adjust her insulin. Discharge instructions and return precautions reviewed with the patient. Diagnostic Imaging Diagonstic Imaging: Xray Plain Films/CT/US/NM/MRI: knee Comments NAME: CARMELA CARVALHO [facility] REC#: [id number] PT STATUS: REG ER : 1955 PHYSICIAN: MARLEN KAMINSKI ADMIT DATE: 05/07/22/ER Draft Date of Exam:05/07/22 KNEE, 3 VIEWS, BILATERAL EXAMINATION: Left knee radiographs, 3 views. Right knee radiographs, 3 views. COMPARISON: None. HISTORY: 67-year-old female, fall. Bilateral knee pain. FINDINGS: There is chondrocalcinosis. There is no right or left knee joint effusion. There is degenerative type patellar enthesopathy bilaterally. The bones appear potentially demineralized. There are vascular related calcifications. There is no identified acute fracture. There is moderate to severe medial compartment joint space loss of the left knee. The joint spaces are well preserved on the right. There is diffuse subcutaneous edema. IMPRESSION: 1. No identified acute bony abnormality of the right or left knee. 2. Chronic findings as above. Dictated on workstation # [id number] Dict: 05/07/22 1235 Trans: 05/07/22 1239 [id number] Interpreted by: JOSE VERAS MD Electronically signed by: Reviewed: Reviewed by Me Departure Impression Primary Impression: Fall Qualified Codes: W19.XXXA - Unspecified fall, initial encounter Additional Impressions: Knee pain, bilateral Qualified Codes: M25.561 - Pain in right knee; M25.562 - Pain in left knee Hyperglycemia due to diabetes mellitus Disposition: HOME, SELF-CARE Condition: Stable Departure-Patient Inst. Decision time for Depature: 13:15 Referrals: PATRICE RODNEY MD (PCP/Family) Primary Care Physician Patient Instructions: Preventing Falls in Older Adults Add. Discharge Instructions: Use cane or walker, to prevent falls. Activity as tolerated. Check blood sugar every 2-3 hours today, adjust insulin as needed. Follow up with Primary Care, as needed. Return to Emergency Dept for new,urgent healthcare problems. All discharge instructions reviewed with patient and/or family. Voiced understanding. MARLEN KAMINSKI May 07, 2022 12:45
[2022-05-07 12:47] LABS: ALBUMIN 3.4 GM/DL (3.2-4.5); POTASSIUM 4.5 MMOL/L (3.6-5.0)
[2022-05-07 12:48] LABS: CALCIUM 9.7 MG/DL (8.5-10.1)
[2022-05-07 12:49] LABS: TOTAL PROTEIN 6.3 GM/DL (6.4-8.2)
[2022-05-07 12:51] LABS: BILIRUBIN,TOTAL 0.5 MG/DL (0.1-1.0)
[2022-05-07 12:53] LABS: CREATININE SERUM 2.12 MG/DL (0.60-1.30)
[2022-05-07] MEDS ORDERED: ACETAMINOPHEN 325 MG TABLET PO STA (12:57)
[2022-05-07] MEDS ORDERED: inSUlin (REGULAR) HUMAN 1 UNIT/0.01 ML (CHARGE PER UNIT) SC STA (13:09)
[2022-05-07 13:35] VITALS: BP 126/75
== END 2022-05-07 13:35 | disposition home or self-care (01) ==
LOC: EDUNIT# 11:49 → ER 11:50
DX: S81.011A Laceration without foreign body, right knee, initial encounter (principal); S81.012A Laceration without foreign body, left knee, initial encounter; E11.65 Type 2 diabetes mellitus with hyperglycemia; E11.22 Type 2 diabetes mellitus with diabetic chronic kidney disease; I12.9 Hypertensive chronic kidney disease with stage 1 through stage 4 chronic kidney disease, or unspecified chronic kidney disease; N18.9 Chronic kidney disease, unspecified; Z79.4 Long term (current) use of insulin; W18.30XA Fall on same level, unspecified, initial encounter
CPT/HCPCS: 36415; 80053; 82947; 83880; 85025

== ENCOUNTER 2022-06-17 10:42 | Observation (INO) | payer MEDICARE, OTHER ==
[~2022-06-17] VITALS: Ht 170 cm; Wt 91.4 kg
[~2022-06-17 10:42] MED LIST changes: +SENN-271 PO; -SENN1TAB76 PO
--- NOTE | 2022-06-17 10:56 | ED General ---
General Chief Complaint: General Problems/Pain Stated Complaint: DIARRHEA Source of Information: EMS, Care Home Records History of Present Illness Date Seen by Provider: Jun 17, 2022 Time Seen by Provider: 10:45 Initial Comments Patient is a 67-year-old female history of diabetes resides at a local senior living on assisted living presents to the emergency department with a chief complaint decreased appetite. Patient seems confused, recent and remote memory impaired. I called and spoke with her nurse Ruth at [facility]. She states over the last 2 to 3 days her appetite has been severely diminished. She called for assistance this morning as she was on the toilet and could not get up due to weakness. She was having lots of diarrhea. Has been wanting to lay in bed. According to her nurse when she spoke with the daughter daughter states that she gets like this when she has a urinary tract infection. Order pending for UA on Sunday of next week by her primary. Patient has not been administering her insulin in her usual fashion either. She normally sits in a wheelchair, does not ambulate. She normally takes care of her own transfers but has been having difficulty doing that over the last couple of days. Nurse noted that the last time she really had anything to eat was 2 days ago. Patient herself is denying any complaints of pain. She is not nauseous. She denies diarrhea and states she had a normal bowel movement 2 days ago. She told me she had not eaten in 4 days. Is not short of breath. No cough. No URI complaints. Timing/Duration: 2-3 Days Severity: Moderate Associated Systoms: Loss of Appetite, Malaise Allergies and Home Medications Allergies Coded Allergies: codeine (Verified Allergy, Severe, SOA, pt has rec Lortab, Percocet, morphine in the past, 11/17/20) bupropion (Verified Allergy, Mild, 11/16/20) COUGH isosorbide (Verified Allergy, Mild, 11/16/20) COUGH levofloxacin (Verified Allergy, Mild, 11/16/20) COUGH ramipril (Verified Allergy, Mild, 11/16/20) COUGH celecoxib (Unverified Allergy, Unknown, 03/08/15) cinacalcet (Verified Allergy, Unknown, 03/07/20) clarithromycin (Verified Allergy, Unknown, 03/07/20) hydrocodone (Verified Adverse Reaction, Unknown, 11/16/20) HYPOTENSION Patient Home Medication List Home Medication List Reviewed: Yes Acetaminophen (Acetaminophen) 500 Mg Tablet, 1,000 MG PO Q6H PRN for PAIN-MILD (1-4) OR TEMPATURE, (Reported) Entered as Reported by: KIKO CABELLO on 11/16/20 0900 Allopurinol (Allopurinol) 100 Mg Tablet, 100 MG PO 1200, (Reported) Entered as Reported by: АНДРЕЙ MAK on 09/10/20 1148 Alprazolam (Alprazolam) 0.5 Mg Tablet, 0.5 MG PO HS, (Reported) Entered as Reported by: АНДРЕЙ MAK on 02/13/22 1437 Amlodipine Besylate (Amlodipine Besylate) 10 Mg Tablet, 10 MG PO 1200, (Reported) Entered as Reported by: АНДРЕЙ MAK on 02/13/22 1437 Aspirin (Aspirin EC) 81 Mg Tablet.dr, 81 MG PO 1200, (Reported) Entered as Reported by: АНДРЕЙ MAK on 09/14/20 1539 Atorvastatin Calcium (Atorvastatin Calcium) 80 Mg Tablet, 80 MG PO HS, (Reported) Entered as Reported by: АНДРЕЙ MAK on 09/10/20 1148 Cephalexin (Cephalexin) 500 Mg Tablet, 500 MG PO TID Prescribed by: MARLEN KAMINSKI on 02/21/22 1221 Clopidogrel Bisulfate (Plavix) 75 Mg Tablet, 75 MG PO 1200, (Reported) Entered as Reported by: АНДРЕЙ MAK on 09/14/20 1539 Docusate Sodium (Docusate Sodium) 100 Mg Capsule, 100 MG PO BID Prescribed by: PATRICE RODNEY on 02/15/22 1201 Ergocalciferol (Vitamin D2) (Vitamin D2) 1,250 Mcg (68659 Unit) Capsule, 1,250 MCG PO WEEK, (Reported) Entered as Reported by: АНДРЕЙ MAK on 02/13/22 1437 Gabapentin (Gabapentin) 100 Mg Capsule, 100 MG PO HS, (Reported) Entered as Reported by: АНДРЕЙ MAK on 02/13/22 1437 Insulin NPH Human Isophane (Novolin N) 100 Unit/Ml Vial, 40 UNIT SQ HS, (Reported) Entered as Reported by: KIKO CABELLO on 11/16/20 0851 Insulin NPH Human Isophane (Novolin N) 100 Unit/Ml Vial, 35 UNIT SQ DAILY, (Reported) Entered as Reported by: KIKO CABELLO on 11/16/20 0851 Insulin Regular, Human (Humulin R) 100 Unit/Ml Soln, UNITS SQ TIDAC, (Reported) Entered as Reported by: KIKO CABELLO on 11/16/20 0851 Meclizine HCl (Meclizine HCl) 25 Mg Tablet, 25 MG PO BID PRN PRN for NAUSEA/VOMITING, (Reported) Entered as Reported by: KIKO CABELLO on 11/16/20 0900 Melatonin (Melatonin) 5 Mg Tablet, 5 MG PO HS, (Reported) Entered as Reported by: АНДРЕЙ MAK on 11/17/20 1307 Oxybutynin Chloride (Oxybutynin Chloride ER) 5 Mg Tab.er.24, 5 MG PO 1200, (Reported) Entered as Reported by: АНДРЕЙ MAK on 03/08/20 1331 Pantoprazole Sodium (Pantoprazole Sodium) 40 Mg Tablet.dr, 40 MG PO 1200, (Reported) Entered as Reported by: KIKO CABELLO on 11/16/20 0851 Ranolazine (Ranexa) 1,000 Mg Tab.er.12h, 1,000 MG PO BID, (Reported) Entered as Reported by: CARMELO PETERS on 08/26/18 1218 Sertraline HCl (Sertraline HCl) 25 Mg Tablet, 25 MG PO HS, (Reported) Entered as Reported by: АНДРЕЙ MAK on 03/08/20 1331 Review of Systems Review of Systems Constitutional: see HPI Gastrointestinal: loss of appetite Genitourinary: no symptoms reported ROS limited by confusion Past Qjuxfbd-Rnaltj-Iwyrqk Hx Patient Social History Tobacco Use?: No Substance use?: No Alcohol Use?: No Pt feels they are or have been: No Immunizations Up To Date Tetanus Booster (TDap): Unknown First/Initial COVID19 Vaccinat: UNKNOWN Second COVID19 Vaccination Phill: UNKNOWN Third COVID19 Vaccination Date: UNKNOWN Seasonal Allergies Seasonal Allergies: No Past Medical History Surgery/Hospitalization HX: PT HAS HX OF LEFT TOTAL HIP SURGERY, GALLBLADDER, TOTAL HYST, PMH; TYPE 2 DM, HTN, hyperlipidemia, tia, mi, constipation, insomnia, frequent falls. Surgeries: Yes (HYSTERECTOMY 1998, LAP. PRIETO 5-6 YRS. AGO, T&A-49 YRS. AGO) Gallbladder, Hysterectomy, Orthopedic, Tonsillectomy Respiratory: Yes (cpap at hs) Sleep Apnea Currently Using CPAP: No Currently Using BIPAP: No Cardiac: Yes (SVT, [place] 2013) Cardiomyopathy, Coronary Artery Disease, Heart Attack, High Cholesterol, Hypertension Neurological: Yes (FACIAL WEAKNESS FOLLOWING SUBARACHNOID HEMORRHAGE) Neuropathy, Stroke, Vertigo Reproductive Disorders: No Female Reproductive Disorders: Denies L D RN History: Hysterectomy Sexually Transmitted Disease: No HIV/AIDS: No Genitourinary: Yes (CHRONIC KIDNEY DISEASE) Kidney Stones, Renal Failure Gastrointestinal: Yes (GASTROPARESIS) Gastroesophageal Reflux, Chronic Constipation Musculoskeletal: Yes (HISTORY OF FALLS/WEAKNESS) Osteoporosis, Arthritis, Back Injury Endocrine: Yes Diabetes, Insulin dep HEENT: Yes (CHRONIC BLURRINESS OF RT EYE) Chronic Ear Infection Hearing Impairment: Hard of Hearing Cancer: No Psychosocial: Yes Sleep Difficulties, Anxiety, Depression Integumentary: Yes Psoriasis Blood Disorders: No Adverse Reaction/Blood Tranf: No Family Medical History Cancer (lung and ovarian) 09 BROTHER, Onset:30's - 40 09 SISTER, Onset:60 years & older Congenital heart disease (mitral valve prolapse) 09 SISTER 09 SISTER Congestive heart failure 03 FATHER, Onset:60 years & older 03 MOTHER, Onset:50's - 60 09 SISTER, Onset:60 years & older Family history: Arthritis 03 MOTHER, Onset:60 years & older Family history: Diabetes mellitus 03 FATHER, Onset:60 years & older 09 SISTER, Onset:50's - 60 Family history: Gastrointestinal disease 03 FATHER, Onset:50's - 60 Hereditary disease (HTN) 09 SISTER, Onset:40's - 50 History of - disorder (Urinary problems) 09 SISTER, Onset:60 years & older 09 SISTER, Onset:20's - 25 History of - respiratory disease (asthma) 09 SISTER Hypercholesterolemia 09 SISTER, Onset:50's - 60 Psychotic disorder (anxiety) 09 SISTER, Onset:30's - 40 Heart Disease Physical Exam Vital Signs Vital Signs - First Documented 06/17/22 10:46 Temp 35.2 Pulse 80 Resp 16 B/P (MAP) 103/76 (85) Pulse Ox 98 Capillary Refill : Height, Weight, BMI Height: 5'6.00" Weight: 220lbs. 10.0oz. 100.028887my; 31.00 BMI Method:Estimated General Appearance: No Apparent Distress, WD/WN, Obese Eyes: Bilateral Eye Normal Inspection, Bilateral Eye PERRL, Bilateral Eye EOMI HEENT: Other (dry oral mucosa with geopgraphic tongue) Neck: Supple Respiratory: Lungs Clear, Normal Breath Sounds, No Accessory Muscle Use, No Respiratory Distress Cardiovascular: Regular Rate, Rhythm, Normal Peripheral Pulses, Other (brisk cap refill) Gastrointestinal: Non Tender, Soft, Abnormal Bowel Sounds (hypoactive) Genital/Rectal: Other (normal extrenal rectal exam. non thrombosed hemorrhoids present. grade 1 sacral decubitus skin changes (no open wounds)) Extremity: Normal Inspection, No Pedal Edema Neurologic/Psychiatric: Alert, No Motor/Sensory Deficits, Normal Mood/Affect Skin: Normal Color, Warm/Dry Progress/Results/Core Measures Suspected Sepsis SIRS Temperature: Pulse: Respiratory Rate: Laboratory Tests 06/17/22 10:47: White Blood Count 14.2H Blood Pressure / Mean: Laboratory Tests 06/17/22 10:47: Creatinine 3.10H, Platelet Count 212 Results/Orders Lab Results Laboratory Tests Test 06/17/22 10:47 06/17/22 11:20 Range/Units White Blood Count 14.2 H 4.3-11.0 10^3/uL Red Blood Count 4.45 3.80-5.11 10^6/uL Hemoglobin 14.4 11.5-16.0 g/dL Hematocrit 42 35-52 % Mean Corpuscular Volume 94 80-99 fL Mean Corpuscular Hemoglobin 32 25-34 pg Mean Corpuscular Hemoglobin Concent 34 32-36 g/dL Red Cell Distribution Width 13.3 10.0-14.5 % Platelet Count 212 130-400 10^3/uL Mean Platelet Volume 11.7 9.0-12.2 fL Immature Granulocyte % (Auto) 1 % Neutrophils (%) (Auto) 70 42-75 % Lymphocytes (%) (Auto) 22 12-44 % Monocytes (%) (Auto) 6 0-12 % Eosinophils (%) (Auto) 1 0-10 % Basophils (%) (Auto) 0 0-10 % Neutrophils # (Auto) 9.9 H 1.8-7.8 10^3/uL Lymphocytes # (Auto) 3.1 1.0-4.0 10^3/uL Monocytes # (Auto) 0.9 0.0-1.0 10^3/uL Eosinophils # (Auto) 0.1 0.0-0.3 10^3/uL Basophils # (Auto) 0.1 0.0-0.1 10^3/uL Immature Granulocyte # (Auto) 0.1 0.0-0.1 10^3/uL Neutrophils % (Manual) 76 % Lymphocytes % (Manual) 17 % Monocytes % (Manual) 5 % Eosinophils % (Manual) 0 % Basophils % (Manual) 0 % Band Neutrophils 2 % Blood Morphology Comment NORMAL Sodium Level 137 135-145 MMOL/L Potassium Level 3.9 3.6-5.0 MMOL/L Chloride Level 98 98-107 MMOL/L Carbon Dioxide Level 22 21-32 MMOL/L Anion Gap 17 H 5-14 MMOL/L Blood Urea Nitrogen 43 H 7-18 MG/DL Creatinine 3.10 H 0.60-1.30 MG/DL Estimat Glomerular Filtration Rate 16 BUN/Creatinine Ratio 14 Glucose Level 294 H 70-105 MG/DL Calcium Level 11.3 H 8.5-10.1 MG/DL Urine Color DARK YELLOW Urine Clarity CLOUDY Urine pH 5.5 5-9 Urine Specific [place] >=1.030 1.016-1.022 Urine Protein 3+ H NEGATIVE Urine Glucose (UA) 2+ H NEGATIVE Urine Ketones TRACE H NEGATIVE Urine Nitrite POSITIVE H NEGATIVE Urine Bilirubin 2+ H NEGATIVE Urine Urobilinogen 1.0 < = 1.0 MG/DL Urine Leukocyte Esterase NEGATIVE NEGATIVE Urine RBC (Auto) NEGATIVE NEGATIVE Urine RBC 0-2 /HPF Urine WBC RARE /HPF Urine Squamous Epithelial Cells 0-2 /HPF Urine Crystals PRESENT H /LPF Urine Amorphous Sediment RARE RICHIE URATES H /LPF Urine Bacteria FEW H /HPF Urine Casts NONE /LPF Urine Mucus NEGATIVE /LPF Urine Culture Indicated YES My Orders Orders - LAKEISHA DIAZ MD Ed Iv/Invasive Line Start (06/17/22 10:56) Cbc With Automated Diff (06/17/22 10:56) Basic Metabolic Panel (06/17/22 10:56) Ua Culture If Indicated (06/17/22 10:56) Manual Differential (06/17/22 10:47) Urine Culture (06/17/22 11:20) Ns Iv 1000 Ml (Sodium Chloride 0.9%) (06/17/22 11:50) Meropenem (Merrem 500 Mg) (06/17/22 12:00) Vital Signs/I&O 06/17/22 10:46 Temp 35.2 Pulse 80 Resp 16 B/P (MAP) 103/76 (85) Pulse Ox 98 Capillary Refill : Progress Note : Time: 12:21 Progress Note Patient seen and evaluated by me. Evaluation today includes physical exam, CBC, Chem-7, urinalysis. Patient's physical examination is remarkable for well- developed well-nourished obese female who appears older than stated age, no acute distress. Dry oral mucosa. Heart is regular, not tachycardic, lungs are clear. Abdomen is soft, hypoactive bowel sounds without involuntary guarding or rebound. Extremities without edema. Small sacral stage I decubitus without any open wound. Patient is slightly confused but follows commands and is oriented to self and location. Afebrile normal oxygen saturations, normal blood pressure. Differential diagnosis based on history and physical exam. Urinary tract infection, hypoglycemia, hyperglycemia, COVID/viral infection, metabolic derangement contributing to confusion, dehydration Labs independently interpreted by me, CBC shows a white count of 14,000 with normal hemoglobin and hematocrit. Chemistry shows normal electrolytes with increased BUN at 49 and creatinine at 3.1. Significantly changed from less than a month ago when her creatinine was 2.1. Urinalysis shows nitrite positive findings with trace bacteria and rare white blood cells. Consideration for COVID however patient cannot delineate any symptoms which would support testing. No significant neurologic compromise/focal neurodeficits therefore CT not obtained. Blood sugar, she is actually hyperglycemic. Fluids will help correct this. Patient is treated in the emergency room with a liter of normal saline and meropenem 500 mg. Medical records reviewed, the last urinalysis with culture we have in our system was from 2020. At that time the patient had Enterococcus. Sensitive to nitrofurantoin, Levaquin, vancomycin, daptomycin. Patient cannot have nitrofurantoin at this time due to renal disease, she is allergic to Levaquin. Meropenem administered pending cultures. Patient care discussed with Dr. Rodney who is agreeable with admission. Gentle IV fluids, antibiotics ordered. Observation to the medical floor. Departure Communication (Admissions) Time/Spoke to Admitting Phy: 12:[address] Rodney, patient's Primary care provider; accepts; obs, Medical Impression Primary Impression: Urinary tract infection Qualified Codes: N39.0 - Urinary tract infection, site not specified Additional Impressions: Acute kidney injury superimposed on chronic kidney disease Dehydration Altered mental status Qualified Codes: R41.82 - Altered mental status, unspecified Disposition: ADMITTED INPATIENT Condition: Stable Admissions Decision to Admit Reason: Admit from ER (General) Decision to Admit/Date: Jun 17, 2022 Time/Decision to Admit Time: 12:21 Departure-Patient Inst. Referrals: PATRICE RODNEY MD (PCP/Family) Primary Care Physician LAKEISHA DIAZ MD Jun 17, 2022 10:56
[2022-06-17 11:03] LABS: BASOPHILS # (AUTO) 0.1 10^3/uL (0.0-0.1); BASOPHILS % (AUTO) 0 % (0-10); EOSINOPHILS # (AUTO) 0.1 10^3/uL (0.0-0.3); EOSINOPHILS % (AUTO) 1 % (0-10); HEMATOCRIT 42 % (35-52); HEMOGLOBIN 14.4 g/dL (11.5-16.0); LYMPHOCYTES # (AUTO) 3.1 10^3/uL (1.0-4.0); LYMPHOCYTES % (AUTO) 22 % (12-44); MEAN CORPUSCULAR HEMOGLOBIN 32 pg (25-34); MEAN CORPUSCULAR HGB CONC 34 g/dL (32-36); MEAN CORPUSCULAR VOLUME 94 fL (80-99); MEAN PLATELET VOLUME 11.7 fL (9.0-12.2); MONOCYTES # (AUTO) 0.9 10^3/uL (0.0-1.0); MONOCYTES % (AUTO) 6 % (0-12); NEUTROPHILS # (AUTO) 9.9 10^3/uL (1.8-7.8); NEUTROPHILS % (AUTO) 70 % (42-75); PLATELET COUNT 212 10^3/uL (130-400); WHITE BLOOD COUNT 14.2 10^3/uL (4.3-11.0)
[2022-06-17 11:12] LABS: POTASSIUM 3.9 MMOL/L (3.6-5.0)
[2022-06-17 11:13] LABS: CALCIUM 11.3 MG/DL (8.5-10.1)
[2022-06-17 11:18] LABS: CREATININE SERUM 3.1 MG/DL (0.60-1.30)
[2022-06-17 11:27] LABS: CLARITY,URINE CLOUDY; COLOR,URINE DARK YELLOW; GLUCOSE, URINE (UA) 2+ (NEGATIVE); KETONES,URINE TRACE (NEGATIVE); LEUKOCYTE ESTERASE ,URINE NEGATIVE (NEGATIVE); NITRITE,URINE POSITIVE (NEGATIVE); PH,URINE 5.5 (5-9); PROTEIN,URINE 3+ (NEGATIVE)
[2022-06-17 11:40] LABS: BACTERIA,URINE FEW /HPF; BILIRUBIN,URINE 2+ (NEGATIVE); RBC,URINE 0-2 /HPF; SQUAMOUS EPITHELIAL CELL,UR 0-2 /HPF; WBC,URINE RARE /HPF
[2022-06-17 11:41] LABS: AMORPHOUS SEDIMENT,UR RARE AMOR URATES /LPF
[2022-06-17 11:41] LABS: BAND NEUTROPHILS 2 %; BASOPHILS % (MANUAL) 0 %; EOSINOPHILS % (MANUAL) 0 %; LYMPHOCYTES % (MANUAL) 17 %; MONOCYTES % (MANUAL) 5 %; NEUTROPHILS % (MANUAL) 76 %
[2022-06-17 11:42] LABS: RBC MORPH NORMAL
[2022-06-17] MEDS ORDERED: NS IV 1000 ML 1,000 ML IV STA (11:50)
[2022-06-17] MEDS ORDERED: MEROPENEM 500 MG in NS (IVPB) 100 ML IV ONE (12:00)
[2022-06-17 13:27] VITALS: BP 103/76
[2022-06-17] MEDS ORDERED: ACETAMINOPHEN 500 MG TAB (TYLENOL) PO PRN (13:30)
[2022-06-17 13:32] VITALS: BP 118/78
[2022-06-17] MEDS ORDERED: RT-ALBUTEROL SULF 2.5 MG/3 ML PRE-MIX VIAL INH PRN (13:45)
[2022-06-17] MEDS: NS IV 1000 ML 1,000 ML IV SCH (14:59)
[2022-06-17 15:44] VITALS: BP 125/78
[2022-06-17] MEDS ORDERED: inSUlin ASPART (NovoLOG) 1 UNIT/0.01 ML (CHARGE PER UNIT) SC SCH (16:00)
[2022-06-17] MEDS: inSUlin ASPART (NovoLOG) 1 UNIT/0.01 ML (CHARGE PER UNIT) SC SCH ×2 (17:05→20:25)
[2022-06-17 19:26] VITALS: BP 127/81
--- NOTE | 2022-06-17 20:40 | History & Physicial ---
History of Present Illness History of Present Illness Reason for visit/HPI 67-year-old female brought to emergency department during the afternoon of June 17, 2022 after apparently having some mental status changes. She is a resident at [facility] living at the [facility] here in [facility]. Apparently she has had some issues with decreased urine output. She has not been drinking enough fluids and she does admit to this. She denies any significant fever. She does have diabetes as well as hypertension. Her appetite has also been down for the last 2-3 days. She has been having quite a bit of loose stools as well. She has not been ambulatory and typically sits in wheelchair. Date of Admission Jun 17, 2022 at 12:54 Date Seen by a Provider: Jun 17, 2022 Time Seen by a Provider: 19:20 I consulted on this patient on 06/17/22 20:34 Attending Physician Amauri Rodney MD Admitting Physician Admitting Physician: Amauri Rodney MD Attending Physician: Amauri Rodney MD Consult Allergies and Home Medications Allergies Coded Allergies: codeine (Verified Allergy, Severe, SOA, pt has rec Lortab, Percocet, morphine in the past, 11/17/20) bupropion (Verified Allergy, Mild, 11/16/20) COUGH isosorbide (Verified Allergy, Mild, 11/16/20) COUGH levofloxacin (Verified Allergy, Mild, 11/16/20) COUGH ramipril (Verified Allergy, Mild, 11/16/20) COUGH celecoxib (Unverified Allergy, Unknown, 03/08/15) cinacalcet (Verified Allergy, Unknown, 03/07/20) clarithromycin (Verified Allergy, Unknown, 03/07/20) hydrocodone (Verified Adverse Reaction, Unknown, 11/16/20) HYPOTENSION Patient Home Medication List Home Medication List Reviewed: Yes Acetaminophen (Acetaminophen) 500 Mg Tablet, 1,000 MG PO Q6H PRN for PAIN-MILD (1-4) OR TEMPATURE, (Reported) Entered as Reported by: KIKO CABELLO on 11/16/20 0900 Allopurinol (Allopurinol) 100 Mg Tablet, 100 MG PO 1200, (Reported) Entered as Reported by: АНДРЕЙ MAK on 09/10/20 1148 Alprazolam (Alprazolam) 0.5 Mg Tablet, 0.5 MG PO HS, (Reported) Entered as Reported by: АНДРЕЙ MAK on 02/13/22 1437 Amlodipine Besylate (Amlodipine Besylate) 10 Mg Tablet, 10 MG PO 1200, (Reported) Entered as Reported by: АНДРЕЙ MAK on 02/13/22 1437 Aspirin (Aspirin EC) 81 Mg Tablet.dr, 81 MG PO 1200, (Reported) Entered as Reported by: АНДРЕЙ MAK on 09/14/20 1539 Atorvastatin Calcium (Atorvastatin Calcium) 80 Mg Tablet, 80 MG PO HS, (Reported) Entered as Reported by: АНДРЕЙ MAK on 09/10/20 1148 Cephalexin (Cephalexin) 500 Mg Tablet, 500 MG PO TID Prescribed by: MARLEN KAMINSKI on 02/21/22 1221 Clopidogrel Bisulfate (Plavix) 75 Mg Tablet, 75 MG PO 1200, (Reported) Entered as Reported by: АНДРЕЙ MAK on 09/14/20 1539 Docusate Sodium (Docusate Sodium) 100 Mg Capsule, 100 MG PO BID Prescribed by: AMAURI RODNEY on 02/15/22 1201 Ergocalciferol (Vitamin D2) (Vitamin D2) 1,250 Mcg (90645 Unit) Capsule, 1,250 MCG PO WEEK, (Reported) Entered as Reported by: АНДРЕЙ MAK on 02/13/22 1437 Gabapentin (Gabapentin) 100 Mg Capsule, 100 MG PO HS, (Reported) Entered as Reported by: АНДРЕЙ MAK on 02/13/22 1437 Insulin NPH Human Isophane (Novolin N) 100 Unit/Ml Vial, 40 UNIT SQ HS, (Reported) Entered as Reported by: KIKO CABELLO on 11/16/20 0851 Insulin NPH Human Isophane (Novolin N) 100 Unit/Ml Vial, 35 UNIT SQ DAILY, (Reported) Entered as Reported by: KIKO CABELLO on 11/16/20 08 Insulin Regular, Human (Humulin R) 100 Unit/Ml Soln, UNITS SQ TIDAC, (Reported) Entered as Reported by: KIKO CABELLO on 11/16/20 0851 Meclizine HCl (Meclizine HCl) 25 Mg Tablet, 25 MG PO BID PRN PRN for NAUSEA/VOMITING, (Reported) Entered as Reported by: KIKO CABELLO on 11/16/20 0900 Melatonin (Melatonin) 5 Mg Tablet, 5 MG PO HS, (Reported) Entered as Reported by: АНДРЕЙ MAK on 11/17/20 1307 Oxybutynin Chloride (Oxybutynin Chloride ER) 5 Mg Tab.er.24, 5 MG PO 1200, (Reported) Entered as Reported by: АНДРЕЙ MAK on 03/08/20 1331 Pantoprazole Sodium (Pantoprazole Sodium) 40 Mg Tablet.dr, 40 MG PO 1200, (Reported) Entered as Reported by: KIKO CABELLO on 11/16/20 0851 Ranolazine (Ranexa) 1,000 Mg Tab.er.12h, 1,000 MG PO BID, (Reported) Entered as Reported by: CARMELO PETERS on 08/26/18 1218 Sertraline HCl (Sertraline HCl) 25 Mg Tablet, 25 MG PO HS, (Reported) Entered as Reported by: АНДРЕЙ MAK on 03/08/20 1331 Past Vjybztq-Kdltrn-Bjyqdq Hx Patient Social History Marrital Status: Number of Children: 3 2nd Hand Smoke Exposure: Yes Recent Hopitalizations: No Have you traveled recently?: No Alcohol Use?: No Pt feels they are or have been: No Immunizations Up To Date Tetanus Booster (TDap): Unknown Date of Pneumonia Vaccine: Mar 07, 2014 Date of Influenza Vaccine: Jan 03, 2022 Seasonal Allergies Seasonal Allergies: No Surgeries Yes (HYSTERECTOMY 1997, LAP. PRIETO 5-6 YRS. AGO, T&A-49 YRS. 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 Genitourinary Yes (CHRONIC KIDNEY DISEASE) Kidney Stones, Renal Failure Gastrointestinal Yes (GASTROPARESIS) Gastroesophageal Reflux, Chronic Constipation Musculoskeletal Yes (HISTORY OF FALLS/WEAKNESS) Osteoporosis, Arthritis, Back Injury Endocrine History of Endocrine Disorders: Yes Endocrine Disorders: Diabetes, Insulin dep HEENT History of HEENT Disorders: Yes (CHRONIC BLURRINESS OF RT EYE) HEENT Disorders: Chronic Ear Infection Hearing Impairment: Hard of Hearing Cancer No Psychosocial History of Psychiatric Problem: Yes Behavioral Health Disorders: Sleep Difficulties, Anxiety, Depression Integumentary History of Skin or Integumenta: Yes Skin/Integumentary Disorders: Psoriasis Blood Transfusions History of Blood Disorders: No Adverse Reaction to a Blood Tr: No Family Medical History Significant Family History: Heart Disease Family Hx: Cancer (lung and ovarian) 09 BROTHER, Onset:30's - 40 09 SISTER, Onset:60 years & older Congenital heart disease (mitral valve prolapse) 09 SISTER 09 SISTER Congestive heart failure 03 FATHER, Onset:60 years & older 03 MOTHER, Onset:50's - 60 09 SISTER, Onset:60 years & older Family history: Arthritis 03 MOTHER, Onset:60 years & older Family history: Diabetes mellitus 03 FATHER, Onset:60 years & older 09 SISTER, Onset:50's - 60 Family history: Gastrointestinal disease 03 FATHER, Onset:50's - 60 Hereditary disease (HTN) 09 SISTER, Onset:40's - 50 History of - disorder (Urinary problems) 09 SISTER, Onset:60 years & older 09 SISTER, Onset:20's - 25 History of - respiratory disease (asthma) 09 SISTER Hypercholesterolemia 09 SISTER, Onset:50's - 60 Psychotic disorder (anxiety) 09 SISTER, Onset:30's - 40 Review of Systems Constitutional: see HPI Physical Exam Vital Signs Vital Signs - First Documented 06/17/22 06/17/22 10:46 13:32 Temp 35.2 Pulse 80 Resp 16 B/P (MAP) 103/76 (85) Pulse Ox 98 O2 Delivery Room Air Capillary Refill : Less Than 3 Seconds Height, Weight, BMI Height: 5'6.00" Weight: 220lbs. 10.0oz. 100.650548fn; 31.62 BMI Method:Estimated General Appearance: Anxious Eyes: Bilateral Eye Normal Inspection HEENT: Normal ENT Inspection Neck: Supple Respiratory: Lungs Clear Cardiovascular: Regular Rate, Rhythm, No Edema Gastrointestinal: Soft; No Distended, No Guarding Rectal: Deferred Back: Normal Inspection Extremity: Normal Capillary Refill Neurologic/Psychiatric: Alert, Oriented x3 (At the time of exam on the floor) Skin: Normal Color Assessment/Plan Assessment and Plan 1. Dehydration -patient has been initiated on IV fluids in emergency department -. I encouraged her to drink oral fluids as well 2. Altered mental statusand this may be related to early onset dementia with concomitant dehydration and/or urinary tract infection -Continue to monitor 3. Acute kidney injury -I suspect this may be prerenal as evident by the dehydration -We will also monitor any drug effect -Recheck BMP in the morning 4. UTIculture pending -she was placed on meropenem in the emergency department -Urine culture preliminary results tomorrow or on Sunday 5. Diabetes mellitusknown -She is on insulin sliding scale-B for now 6. Hypertensionknown -Will monitor her blood pressure and restart as necessary Admission Diagnosis 1. Dehydration 2. Altered mental statusand this may be related to early onset dementia with concomitant dehydration and/or urinary tract infection 3. acute kidney injury 4. UTIculture pending 5. Diabetes mellitusknown 6. Hypertensionknown Admission Status: Observation AMAURI RODNEY MD Jun 17, 2022 20:40
[2022-06-17] MEDS: MEROPENEM 500 MG/NS 100 ML IVPB IV SCH ×2 (22:04)
[2022-06-18] VITALS (7 sets, daily range): BP systolic 114–145; BP diastolic 72–89
[2022-06-18 05:51] LABS: CALCIUM 10.1 MG/DL (8.5-10.1); CREATININE SERUM 2.13 MG/DL (0.60-1.30); POTASSIUM 3.8 MMOL/L (3.6-5.0)
[2022-06-18] MEDS: inSUlin ASPART (NovoLOG) 1 UNIT/0.01 ML (CHARGE PER UNIT) SC SCH ×4 (06:10→21:18)
[2022-06-18] MEDS: CLOPIDOGREL 75 MG (PLAVIX) TABLET PO SCH (08:14)
[2022-06-18] MEDS: ASPIRIN 81 MG CHEW (CHILDREN'S ASA) PO SCH (08:14)
[2022-06-18] MEDS: NS IV 1000 ML 1,000 ML IV SCH (09:59)
[2022-06-18] MEDS: MEROPENEM 500 MG/NS 100 ML IVPB IV SCH ×4 (09:59→21:18)
--- NOTE | 2022-06-18 11:14 | Discharge Inst-Simple/Standard ---
Discharge Inst-Standard Reconcile Patient Problems Problems Reviewed?: Yes Patient Instructions/Follow Up Plan of Care/Instructions/FU: With Dr. Rodney in 7-10 days Activity as Tolerated: Yes Discharge Diet: Low Fat/Low Cholesterol Return to The Hospital For: Febrile illness, poor oral intake, Significant change in mental status PATRICE RODNEY MD Jun 18, 2022 11:14
--- NOTE | 2022-06-18 11:15 | Discharge Summary ---
Diagnosis/Chief Complaint Date of Admission Jun 17, 2022 at 12:54 Date of Discharge June 18, 2022 Discharge Date: Jun 18, 2022 Discharge Time: 11:30 Admission Diagnosis Admission Diagnosis 1. Dehydration 2. Altered mental statusand this may be related to early onset dementia with concomitant dehydration and/or urinary tract infection 3. Acute kidney injury 4. UTIculture pending 5. Diabetes mellitusknown 6. Hypertensionknown Discharge Diagnosis 1. Dehydration 2. Altered mental statusand this may be related to early onset dementia with concomitant dehydration and/or urinary tract infection 3. Acute kidney injury 4. UTIproven negative 5. Diabetes mellitusknown 6. Hypertensionknown Reason Hospital Visit 67-year-old female brought to emergency department during the afternoon of June 17, 2022 after apparently having some mental status changes. She is a resident at assisted living at the [facility] in [facility]. Apparently she has had some issues with decreased urine output. She has not been drinking enough fluids and she does admit to this. She denies any significant fever. She does have diabetes as well as hypertension. Her appetite has also been down for the last 2-3 days. She has been having quite a bit of loose stools as well. She has not been ambulatory and typically sits in wheelchair. Discharge Summary Hospital Course Was the Problem List Reviewed?: Yes Hospital Course 1. Dehydration -patient has been initiated on IV fluids in emergency department -. 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 She had marked improvement of her creatinine decreasing to 2.1. It appears that her #3 problem acute kidney injury was due to dehydration. 2. Altered mental statusand this may be related to early onset dementia with concomitant dehydration and/or urinary tract infection -Continue to monitor 3. Acute kidney injury -I suspect this may be prerenal as evident by the dehydration -We will also monitor any drug effect -Recheck BMP in the morning of June 18, 2022 4. UTIculture pending -she was placed on meropenem in the emergency department -Urine culture preliminary results tomorrow or on Sunday 06/18 -urine culture came back final no growth. The meropenem was discontinued. She was felt ready for dismissal as she was in normal state of mentation and basically drinking plenty of fluids. Will recheck basic metabolic panel within the week. Also will hold her oxybutynin as discussion with her revealed that she believes she was holding her urine because of the medication. 5. Diabetes mellitusknown -She is on insulin sliding scale-B for now 6. Hypertensionknown -Will monitor her blood pressure and restart as necessary Labs Laboratory Tests 06/17/22 10:47: White Blood Count 14.2H, Neutrophils # (Auto) 9.9H, Anion Gap 17H, Blood Urea Nitrogen 43H, Creatinine 3.10H, Glucose Level 294H, Calcium Level 11.3H 06/17/22 11:20: Urine Protein 3+H, Urine Glucose (UA) 2+H, Urine Ketones TRACEH, Urine Nitrite POSITIVEH, Urine Bilirubin 2+H, Urine Crystals PRESENTH, Urine Amorphous Sediment RARE RICHIE URATESH, Urine Bacteria FEWH 06/18/22 05:10: Blood Urea Nitrogen 37H, Creatinine 2.13H, Glucose Level 201H Procedures None. Discharge Physical Examination Allergies: Coded Allergies: codeine (Verified Allergy, Severe, SOA, pt has rec Lortab, Percocet, morphine in the past, 11/17/20) bupropion (Verified Allergy, Mild, 11/16/20) COUGH isosorbide (Verified Allergy, Mild, 11/16/20) COUGH levofloxacin (Verified Allergy, Mild, 11/16/20) COUGH ramipril (Verified Allergy, Mild, 11/16/20) COUGH celecoxib (Unverified Allergy, Unknown, 03/08/15) cinacalcet (Verified Allergy, Unknown, 03/07/20) clarithromycin (Verified Allergy, Unknown, 03/07/20) hydrocodone (Verified Adverse Reaction, Unknown, 11/16/20) HYPOTENSION Vitals & I&Os Vital Signs Date Time Temp Pulse Resp B/P (MAP) Pulse Ox O2 Delivery O2 Flow Rate FiO2 06/18/22 11:00 96 Room Air 0.00 06/18/22 07:29 36.0 104 20 129/75 (93) General Appearance: Alert, Oriented X3 Respiratory: Clear to Auscultation Cardiovascular: Regular Rate Abdominal: Soft Neuro: Normal Speech Psych/Mental Status: Mental Status NL Discharge Home Medications Reviewed and agree with Discharge Medication list on patient's Discharge Instruction sheet Instructions to Patient/Family Please see electronic discharge instructions given to patient. PATRICE RODNEY MD Jun 18, 2022 11:15
[2022-06-19 03:57] VITALS: BP 152/63
[2022-06-19] MEDS: NS IV 1000 ML 1,000 ML IV SCH (06:04)
[2022-06-19] MEDS: inSUlin ASPART (NovoLOG) 1 UNIT/0.01 ML (CHARGE PER UNIT) SC SCH ×2 (06:04→12:28)
[2022-06-19 07:57] VITALS: BP 165/89
[2022-06-19] MEDS ORDERED: MEROPENEM 500 MG/NS 100 ML IVPB IV SCH ×2 (08:00)
[2022-06-19] MEDS: CLOPIDOGREL 75 MG (PLAVIX) TABLET PO SCH (08:55)
[2022-06-19] MEDS: ASPIRIN 81 MG CHEW (CHILDREN'S ASA) PO SCH (08:55)
[2022-06-19] MEDS ORDERED: FURO40TA4 PO (09:40)
[2022-06-19] MEDS ORDERED: LOSA100T57 PO (09:40)
[2022-06-19] MEDS ORDERED: RANO10005 PO (09:40)
[2022-06-19] MEDS ORDERED: DOCU100C37 PO (09:40)
[2022-06-19 12:00] VITALS: BP 173/94
== END 2022-06-19 09:25 | disposition home or self-care (01) ==
LOC: EDUNIT# 10:42 → ER 10:43 → 4TH 12:54 → UNDOADMOB 12:54 → UNDODISOB 06-19 14:54
PROVIDERS: ADMIT Family Medicine; ATTEND Family Medicine
DX: N39.0 Urinary tract infection, site not specified (principal); N17.9 Acute kidney failure, unspecified; I12.9 Hypertensive chronic kidney disease with stage 1 through stage 4 chronic kidney disease, or unspecified chronic kidney disease; E11.22 Type 2 diabetes mellitus with diabetic chronic kidney disease; N18.9 Chronic kidney disease, unspecified; E86.0 Dehydration; R41.82 Altered mental status, unspecified; L89.151 Pressure ulcer of sacral region, stage 1; E66.9 Obesity, unspecified; G47.30 Sleep apnea, unspecified; Z68.31 Body mass index [BMI] 31.0-31.9, adult; Z88.1 Allergy status to other antibiotic agents; Z99.89 Dependence on other enabling machines and devices
CPT/HCPCS: 80048 ×2; 81000; 85007; 85027; 87088; 94760; 96361; 96366 ×2; 96376 ×2; 99284; G0378; 36415; 96365

== ENCOUNTER 2022-06-22 12:00 | Observation (INO) | payer MEDICARE, OTHER ==
[~2022-06-22] VITALS: Ht 170.2 cm; Wt 91.8 kg
[~2022-06-22 12:00] MED LIST changes: +FURO40TA4 PO; +RANO10005 PO
[2022-06-22] MEDS ORDERED: NS IV 1000 ML 1,000 ML IV SCH (12:15)
[2022-06-22 12:22] LABS: BASOPHILS # (AUTO) 0.1 10^3/uL (0.0-0.1); BASOPHILS % (AUTO) 1 % (0-10); EOSINOPHILS # (AUTO) 0.1 10^3/uL (0.0-0.3); EOSINOPHILS % (AUTO) 1 % (0-10); HEMATOCRIT 40 % (35-52); HEMOGLOBIN 13.8 g/dL (11.5-16.0); LYMPHOCYTES # (AUTO) 3.8 10^3/uL (1.0-4.0); LYMPHOCYTES % (AUTO) 37 % (12-44); MEAN CORPUSCULAR HEMOGLOBIN 33 pg (25-34); MEAN CORPUSCULAR HGB CONC 34 g/dL (32-36); MEAN CORPUSCULAR VOLUME 97 fL (80-99); MONOCYTES # (AUTO) 0.6 10^3/uL (0.0-1.0); MONOCYTES % (AUTO) 6 % (0-12); NEUTROPHILS # (AUTO) 5.6 10^3/uL (1.8-7.8); NEUTROPHILS % (AUTO) 55 % (42-75); PLATELET COUNT 159 10^3/uL (130-400); WHITE BLOOD COUNT 10.1 10^3/uL (4.3-11.0)
--- NOTE | 2022-06-22 12:23 | ED Neurological Problem ---
General Chief Complaint: Altered Mental Status Stated Complaint: ALTERED MENTAL STATUS Nursing Triage Note: PT TO ED BY EMS FROM [facility] WITH C/O AMS. EMS REPORTS SNF STAFF REPORTS PT UNRESPONSIVE FOR THE LAST HOUR. UPON THEIR ARRIVAL, PT LETHARGIC, BUT ABLE TO ANSWER QUESTIONS. PT REPORTS SHE FEELS "GROGGY" AND HAS HAD 2 EPISODES OF EMESIS AND DIARRHEA OVER THE LAST 2 DAYS. PT DENIES CP, SOB, NAUSEA AT THIS TIME. LKW 1040. Source: patient, EMS Exam Limitations: no limitations History of Present Illness Date Seen by Provider: Jun 22, 2022 Time Seen by Provider: 12:02 Initial Comments 67-year-old female presents the ED via EMS from [facility] for reports of altered mental status. EMS reports that half-way stated patient was unresponsive for approximately 1 hour. Upon EMS arrival, patient was responsive to voice. Patient is alert, oriented to month and year, thought she was at [facility]. EMS reports that half-way stated patient got up this morning ate breakfast. 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 Patient is able to contribute to history at this time. She states she has been feeling well. She does report nausea which occurs after taking her medications, reports 2 episodes of vomiting over the last 2 days. Also reports 2 episodes of diarrhea over the last 2 days. Denies fevers, chest pain, shortness of air, abdominal pain. Blood sugar for EMS was 148. Patient is unable to give her past medical history or medications. Her medication list was obtained from her paperwork from the half-way. The paperwork does not include her past medical history. She later message to the nurse that she has been falling recently, complaining of bilateral knee pain. Allergies and Home Medications Allergies Coded Allergies: codeine (Verified Allergy, Severe, SOA, pt has rec Lortab, Percocet, morphine in the past, 11/17/20) bupropion (Verified Allergy, Mild, 11/16/20) COUGH isosorbide (Verified Allergy, Mild, 11/16/20) COUGH levofloxacin (Verified Allergy, Mild, 11/16/20) COUGH ramipril (Verified Allergy, Mild, 11/16/20) COUGH celecoxib (Unverified Allergy, Unknown, 03/08/15) cinacalcet (Verified Allergy, Unknown, 03/07/20) clarithromycin (Verified Allergy, Unknown, 03/07/20) hydrocodone (Verified Adverse Reaction, Unknown, 11/16/20) HYPOTENSION Patient Home Medication List Home Medication List Reviewed: Yes Acetaminophen (Acetaminophen) 500 Mg Tablet, 1,000 MG PO Q6H PRN for PAIN-MILD (1-4) OR TEMPATURE, (Reported) Entered as Reported by: KIKO CABELLO on 11/16/20 0900 Allopurinol (Allopurinol) 100 Mg Tablet, 100 MG PO 1200, (Reported) Entered as Reported by: АНДРЕЙ MAK on 09/10/20 1148 Alprazolam (Alprazolam) 0.5 Mg Tablet, 0.5 MG PO HS, (Reported) Entered as Reported by: АНДРЕЙ MAK on 02/13/22 1437 Amlodipine Besylate (Amlodipine Besylate) 10 Mg Tablet, 10 MG PO 1200, (Reported) Entered as Reported by: АНДРЕЙ MAK on 02/13/22 1437 Aspirin (Aspirin EC) 81 Mg Tablet.dr, 81 MG PO DAILY, (Reported) Entered as Reported by: АНДРЕЙ MAK on 09/14/20 1539 Atorvastatin Calcium (Atorvastatin Calcium) 80 Mg Tablet, 80 MG PO HS, (Reported) Entered as Reported by: АНДРЕЙ MAK on 09/10/20 1148 Clopidogrel Bisulfate (Plavix) 75 Mg Tablet, 75 MG PO 1200, (Reported) Entered as Reported by: АНДРЕЙ MAK on 09/14/20 1539 Docusate Sodium (Docusate Sodium) 100 Mg Capsule, 100 MG PO BID, (Reported) Entered as Reported by: АНДРЕЙ MAK on 06/19/22 0940 Ergocalciferol (Vitamin D2) (Vitamin D2) 1,250 Mcg (17130 Unit) Capsule, 1,250 MCG PO WEEK, (Reported) Entered as Reported by: АНДРЕЙ MAK on 02/13/22 1437 Furosemide (Furosemide) 40 Mg Tablet, 40 MG PO 1200, (Reported) Entered as Reported by: АНДРЕЙ MAK on 06/19/22 0940 Gabapentin (Gabapentin) 100 Mg Capsule, 100 MG PO HS, (Reported) Entered as Reported by: АНДРЕЙ MAK on 02/13/22 1437 Insulin NPH Human Isophane (Novolin N) 100 Unit/Ml Vial, 40 UNIT SQ HS, (Reported) Entered as Reported by: KIKO CABELLO on 11/16/20 0851 Insulin NPH Human Isophane (Novolin N) 100 Unit/Ml Vial, 35 UNIT SQ DAILY, (Reported) Entered as Reported by: KIKO CABELLO on 11/16/20 0851 Insulin Regular, Human (Humulin R) 100 Unit/Ml Soln, UNITS SQ TIDAC, (Reported) Entered as Reported by: KIKO CABELLO on 11/16/20 0851 Losartan Potassium (Losartan Potassium) 100 Mg Tablet, 100 MG PO 1200, (Reported) Entered as Reported by: АНДРЕЙ MAK on 06/19/22 0940 Meclizine HCl (Meclizine HCl) 25 Mg Tablet, 25 MG PO BID, (Reported) Entered as Reported by: KIKO CABELLO on 11/16/20 0900 Melatonin (Melatonin) 5 Mg Tablet, 5 MG PO HS, (Reported) Entered as Reported by: АНДРЕЙ MAK on 11/17/20 1307 Pantoprazole Sodium (Pantoprazole Sodium) 40 Mg Tablet.dr, 40 MG PO 1200, (Reported) Entered as Reported by: KIKO CABELLO on 11/16/20 0851 Ranolazine (Ranolazine ER) 1,000 Mg Tab.er.12h, 1,000 MG PO BID, (Reported) Entered as Reported by: АНДРЕЙ MAK on 06/19/22 0940 Sertraline HCl (Sertraline HCl) 25 Mg Tablet, 25 MG PO HS, (Reported) Entered as Reported by: АНДРЕЙ MAK on 03/08/20 1331 Discontinued Medications Cephalexin (Cephalexin) 500 Mg Tablet, 500 MG PO TID Discontinued Reason: No Longer Taking Prescribed by: MARLEN KAMINSKI on 02/21/22 1221 Docusate Sodium (Docusate Sodium) 100 Mg Capsule, 100 MG PO BID Discontinued Reason: Duplicate Order Prescribed by: PATRICE RODNEY on 02/15/22 1201 Oxybutynin Chloride (Oxybutynin Chloride ER) 5 Mg Tab.er.24, 5 MG PO 1200, (Reported) Entered as Reported by: АНДРЕЙ MAK on 03/08/20 1331 Ranolazine (Ranexa) 1,000 Mg Tab.er.12h, 1,000 MG PO BID, (Reported) Discontinued Reason: Duplicate Order Entered as Reported by: CARMELO PETERS on 08/26/18 1218 Review of Systems Review of Systems Constitutional: see HPI Past Zuafcxa-Blajmg-Vutgvv Hx Patient Social History Tobacco Use?: No Use of E-Cig and/or Vaping dev: No Substance use?: No Alcohol Use?: No Pt feels they are or have been: No Immunizations Up To Date Tetanus Booster (TDap): Unknown Influenza Vaccine Up-to-Date: Yes; Up-to-Date First/Initial COVID19 Vaccinat: X2 Second COVID19 Vaccination Phill: X2 Third COVID19 Vaccination Date: UNKNOWN Seasonal Allergies Seasonal Allergies: No Past Medical History Surgery/Hospitalization HX: PT HAS HX OF LEFT TOTAL HIP SURGERY, GALLBLADDER, TOTAL HYST, PMH; TYPE 2 DM, HTN, hyperlipidemia, tia, mi, constipation, insomnia, frequent falls. Surgeries: Yes (HYSTERECTOMY 1997, LAP. PRIETO 5-6 YRS. AGO, T&A-49 YRS. 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 Sexually Transmitted Disease: No HIV/AIDS: No Genitourinary: Yes (CHRONIC KIDNEY DISEASE) Kidney Stones, Renal Failure Gastrointestinal: Yes (GASTROPARESIS) Gastroesophageal Reflux, Chronic Constipation Musculoskeletal: Yes (HISTORY OF FALLS/WEAKNESS) Osteoporosis, Arthritis, Back Injury Endocrine: Yes Diabetes, Insulin dep HEENT: Yes (CHRONIC BLURRINESS OF RT EYE) Chronic Ear Infection Hearing Impairment: Hard of Hearing Cancer: No Psychosocial: Yes Sleep Difficulties, Anxiety, Depression Integumentary: Yes Psoriasis Blood Disorders: No Adverse Reaction/Blood Tranf: No Family Medical History Cancer (lung and ovarian) 09 BROTHER, Onset:30's - 40 09 SISTER, Onset:60 years & older Congenital heart disease (mitral valve prolapse) 09 SISTER 09 SISTER Congestive heart failure 03 FATHER, Onset:60 years & older 03 MOTHER, Onset:50's - 60 09 SISTER, Onset:60 years & older Family history: Arthritis 03 MOTHER, Onset:60 years & older Family history: Diabetes mellitus 03 FATHER, Onset:60 years & older 09 SISTER, Onset:50's - 60 Family history: Gastrointestinal disease 03 FATHER, Onset:50's - 60 Hereditary disease (HTN) 09 SISTER, Onset:40's - 50 History of - disorder (Urinary problems) 09 SISTER, Onset:60 years & older 09 SISTER, Onset:20's - 25 History of - respiratory disease (asthma) 09 SISTER Hypercholesterolemia 09 SISTER, Onset:50's - 60 Psychotic disorder (anxiety) 09 SISTER, Onset:30's - 40 Heart Disease Physical Exam Vital Signs Vital Signs - First Documented 06/22/22 12:03 Temp 36.3 Pulse 71 Resp 14 B/P (MAP) 89/61 (70) Pulse Ox 96 O2 Delivery Room Air Capillary Refill : Less Than 3 Seconds Height, Weight, BMI Height: 5'6.00" Weight: 220lbs. 10.0oz. 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 II-XII nml as tested, alert, normal mood/affect Crainal Nerves: normal hearing, normal speech, PERRL Skin: normal color, warm/dry Stroke NIH Stroke Scale Assessment Select: Initial Level of Consciousness: 0=Alert (0), Level of Consciousness- Questions: 0=Answers both month/age (0), LOC Commands: 0=Performs both tasks (0), Gaze: Normal (0), Visual Paredes: 0=No visual loss (0), Facial Movement (Facial Paresis): 0=Normal symmetrical mnt (0), Motor Function-Arms Right: 0=No drift (0), Motor Function-Arms Left: 0=No drift (0), Motor Function-Legs Right: 1=Drift (1), Motor Function-Legs Left: 2=Some effort/gravity (2), Limb Ataxia: 0=Absent (0), Sensory: 0=Normal:no loss (0), Best Language: 0=No aphasia (0), Dysarthria: 0=Normal (0), Extinction & Inattention: 0=No abnormality (0), Total: 3 Stroke Thrombolytic Exclusion Age 18 or Over: Yes Acute intenal hemorrhage: No History of CVA: Yes Uncontrolled Coagulation Defec: No Intracranial Hemorrhage: No Severe Hypertension: No GI or Bleed: No Subarachnoid Hemorrhage: No Intracranial Neoplasm/Aneurysm: No Oral Anticoagulants: No Surgery or Trauma: Yes Puncture of Non-Compressible V: No Recent CPR: No Diabetic Hemorrhagic Retinopat: No Organ Biopsy: No Recent Obstetric Delivery: No Glucose: No Significant Hepatic Dysfunctio: No NIH Stoke Scale >22: No Bacterial Endocarditis: No Pericarditis: No Improving Symptoms: Yes Platelets: No Focused Exam Lactate Level 06/22/22 12:17: Lactic Acid Level 1.92 Lactic Acid Level Laboratory Tests Test 06/22/22 12:17 Lactic Acid Level 1.92 MMOL/L (0.50-2.00) Progress/Results/Core Measures Results/Orders Lab Results Laboratory Tests Test 06/22/22 12:06 06/22/22 12:17 06/22/22 12:47 06/22/22 13:53 Range/Units White Blood Count 10.1 4.3-11.0 10^3/uL Red Blood Count 4.17 3.80-5.11 10^6/uL Hemoglobin 13.8 11.5-16.0 g/dL Hematocrit 40 35-52 % Mean Corpuscular Volume 97 80-99 fL Mean Corpuscular Hemoglobin 33 25-34 pg Mean Corpuscular Hemoglobin Concent 34 32-36 g/dL Red Cell Distribution Width 13.8 10.0-14.5 % Platelet Count 159 130-400 10^3/uL Mean Platelet Volume 12.0 9.0-12.2 fL Immature Granulocyte % (Auto) 1 % Neutrophils (%) (Auto) 55 42-75 % Lymphocytes (%) (Auto) 37 12-44 % Monocytes (%) (Auto) 6 0-12 % Eosinophils (%) (Auto) 1 0-10 % Basophils (%) (Auto) 1 0-10 % Neutrophils # (Auto) 5.6 1.8-7.8 10^3/uL Lymphocytes # (Auto) 3.8 1.0-4.0 10^3/uL Monocytes # (Auto) 0.6 0.0-1.0 10^3/uL Eosinophils # (Auto) 0.1 0.0-0.3 10^3/uL Basophils # (Auto) 0.1 0.0-0.1 10^3/uL Immature Granulocyte # (Auto) 0.1 0.0-0.1 10^3/uL Prothrombin Time 13.6 12.2-14.7 SEC INR Comment 1.0 0.8-1.4 Activated Partial Thromboplast Time 30 24-35 SEC Sodium Level 138 135-145 MMOL/L Potassium Level 4.1 3.6-5.0 MMOL/L Chloride Level 107 98-107 MMOL/L Carbon Dioxide Level 20 L 21-32 MMOL/L Anion Gap 11 5-14 MMOL/L Blood Urea Nitrogen 36 H 7-18 MG/DL Creatinine 2.52 H 0.60-1.30 MG/DL Estimat Glomerular Filtration Rate 20 BUN/Creatinine Ratio 14 Glucose Level 129 H 70-105 MG/DL Calcium Level 9.6 8.5-10.1 MG/DL Corrected Calcium 10.1 8.5-10.1 MG/DL Magnesium Level 1.8 1.6-2.4 MG/DL Total Bilirubin 0.6 0.1-1.0 MG/DL Aspartate Amino Transf (AST/SGOT) 29 5-34 U/L Alanine Aminotransferase (ALT/SGPT) 31 0-55 U/L Alkaline Phosphatase 60 40-136 U/L Troponin I 0.086 H <0.028 NG/ML Total Protein 5.6 L 6.4-8.2 GM/DL Albumin 3.4 3.2-4.5 GM/DL Lactic Acid Level 1.92 0.50-2.00 MMOL/L Influenza Type A (RT-PCR) Not Detected Not Detecte Influenza Type B (RT-PCR) Not Detected Not Detecte SARS-CoV-2 RNA (RT-PCR) Not Detected Not Detecte Urine Color UGO H Urine Clarity CLEAR Urine pH 5.0 5-9 Urine Specific [place] >=1.030 1.016-1.022 Urine Protein 3+ H NEGATIVE Urine Glucose (UA) TRACE H NEGATIVE Urine Ketones TRACE H NEGATIVE Urine Nitrite NEGATIVE NEGATIVE Urine Bilirubin 1+ H NEGATIVE Urine Urobilinogen 1.0 < = 1.0 MG/DL Urine Leukocyte Esterase NEGATIVE NEGATIVE Urine RBC (Auto) NEGATIVE NEGATIVE Urine RBC NONE /HPF Urine WBC 5-10 H /HPF Urine Squamous Epithelial Cells 10-25 H /HPF Urine Crystals PRESENT H /LPF Urine Amorphous Sediment RARE IRCHIE URATES H /LPF Urine Bacteria FEW H /HPF Urine Casts PRESENT /LPF Urine Hyaline Casts 2-5 H /LPF Urine Mucus NEGATIVE /LPF Urine Culture Indicated CULTURE PENDING Test 06/22/22 14:58 Range/Units Urine Color ORANGE Urine Clarity CLEAR Urine pH 5.5 5-9 Urine Specific [place] >=1.030 1.016-1.022 Urine Protein 3+ H NEGATIVE Urine Glucose (UA) NEGATIVE NEGATIVE Urine Ketones TRACE H NEGATIVE Urine Nitrite NEGATIVE NEGATIVE Urine Bilirubin 1+ H NEGATIVE Urine Urobilinogen 0.2 < = 1.0 MG/DL Urine Leukocyte Esterase NEGATIVE NEGATIVE Urine RBC (Auto) NEGATIVE NEGATIVE Urine RBC NONE /HPF Urine WBC 0-2 /HPF Urine Squamous Epithelial Cells >50 H /HPF Urine Crystals PRESENT H /LPF Urine Amorphous Sediment LARGE RICHIE URATES H /LPF Urine Bacteria FEW H /HPF Urine Casts PRESENT /LPF Urine Hyaline Casts 2-5 H /LPF Urine Mucus NEGATIVE /LPF Urine Culture Indicated CULTURE PENDING My Orders Orders - NATHAN SUAZO JEWELRY TECHNICIAN Cbc With Automated Diff (06/22/22 12:13) Comprehensive Metabolic Panel (06/22/22 12:13) Blood Culture (06/22/22 12:13) Sputum Culture (06/22/22 12:13) Urinalysis (06/22/22 12:13) Urine Culture (06/22/22 12:13) Protime With Inr (06/22/22 12:13) Partial Thromboplastin Time (06/22/22 12:13) Chest 1 View, Ap/Pa Only (06/22/22 12:13) Ed Iv/Invasive Line Start (06/22/22 12:13) Vital Signs Adult Sepsis Patie Q15M (06/22/22 12:13) Remove Rings In Anticipation O (06/22/22 12:13) Lactic Acid Analyzer (06/22/22 12:13) Ct Head Wo (06/22/22 12:13) Covid 19 Inhouse Test (06/22/22 12:13) Influenza A And B By Pcr (06/22/22 12:13) Ns Iv 1000 Ml (Sodium Chloride 0.9%) (06/22/22 12:15) Knee, 3 Views, Bilateral (06/22/22 12:24) Magnesium (06/22/22 12:25) Troponin I [place] (06/22/22 12:25) Ua Culture If Indicated (06/22/22 14:36) Straight Cath For Spec.-Adult (06/22/22 15:01) Ed Admission (Communication) (06/22/22 16:08) Code/Resuscitation (06/22/22 16:08) Vital Signs/I&O 06/22/22 12:03 Temp 36.3 Pulse 71 Resp 14 B/P (MAP) 89/61 (70) Pulse Ox 96 O2 Delivery Room Air Blood Pressure Mean: 70 Progress Progress Note : Time: :23 Progress Note Patient seen and evaluated, resting comfortably bed, no acute distress. Based on exam and symptoms, differential diagnosis includes but not limited to TIA, sepsis. Work-up initiated including CBC, CMP, troponin, exam, coags, blood cultures x2, lactic acid, COVID, flu swabs, chest x-ray, UA, CT head, bilateral knee x-rays. NIH was a 3, this was due to weakness in bilateral legs. Patient has had a previous CVA which affected her left side. 1344 Labs and imaging reviewed. CBC grossly normal, WBC normal 10.1. CMP shows slightly decreased CO2 20, BUN 36, creatinine elevated 2.52, GFR 20, kidney functions are similar to previous. Glucose 129, magnesium normal 1.8, lactic acid normal 1.92. Troponin elevated 0.086. Coags normal. COVID and flu negative. I called Dr. Sullivan, cardiology, regarding patient's elevated troponin. He recommends admission with continuing home meds, and he will see patient tomorrow. UA pending. Chest x-ray shows no acute cardiopulmonary process. Bilateral knee x-ray shows no acute osseous abnormality. CT shows nonacute lacunar infarct in the right thalamus. No evidence of hemorrhage. No acute intracranial abnormality or significant adverse change. 1437 UA shows 3+ protein, trace glucose, trace ketones, 1+ bilirubin, 5-10 WBC, few bacteria, 10-25 squamous epithelial cells. Specimen likely contaminated. Straight cath urine ordered. 1602 repeat UA shows 0-2 WBCs, greater than 50 squamous epithelial cells, few bacteria. Dr. Goodrich, hospitalist, called for admission. She would like to admit patient to cardiac stepdown for observation for dehydration and elevated troponin. Dr. Goodrich will place acute orders. Initial ECG Impression Date: Jun 22, 2022 Initial ECG Impression Time: 12:16 Initial ECG Rate: 71 Initial ECG Rhythm: Normal Sinus Initial ECG Intervals: QT (Slightly long QTc 476) Initial ECG Impression: Normal Initial ECG Comparisson: Unchanged Diagnostic Imaging Diagonstic Imaging: Xray Plain Films/CT/US/NM/MRI: chest Comments [facility], [place] NAME: CARMELA CARVALHO [facility] REC#: [id number] PT STATUS: REG ER : 1955 PHYSICIAN: NATHAN SUAZO APRN ADMIT DATE: 06/22/22/ER Signed Date of Exam:06/22/22 CHEST 1 VIEW, AP/PA ONLY EXAMINATION: Chest 1 view HISTORY: AMS COMPARISON: 02/14/2022 FINDINGS: Heart size is upper limits of normal. The lungs are clear without consolidation, pleural effusion, or pneumothorax. The osseous structures are intact. IMPRESSION: 1. No acute radiographic abnormality in the chest. Dictated by: Dictated on workstation # [id number] Dict: 06/22/22 1256 Trans: 06/22/22 1319 [facility] [id number] Interpreted by: ARNOLD NATH DO Electronically signed by: ARNOLD NATH DO 06/22/22 1319 Diagonstic Imaging: CT Plain Films/CT/US/NM/MRI: head Comments [facility] [place] NAME: CARMELA CARVALHO [facility] REC#: [id number] PT STATUS: REG ER : 1955 PHYSICIAN: NATHAN SUAZO APRN ADMIT DATE: 06/22/22/ER Draft Date of Exam:06/22/22 CT HEAD WO PROCEDURE: CT head without contrast. TECHNIQUE: Multiple contiguous axial images were obtained through the brain without the use of intravenous contrast. Auto Exposure Controls were utilized during the CT exam to meet ALARA standards for radiation dose reduction. INDICATION: Altered mental status COMPARISON: 03/03/2022 Ventricles and sulci are diffusely prominent with moderate low-density in the cerebral white matter, bilaterally. Nonacute lacunar infarct is seen in the right thalamus. There is no evidence of hemorrhage. There is no abnormal mass effect or shift of midline structures. Calvarium is intact and the visualized paranasal sinuses are clear. There is moderate atherosclerosis present within distal internal carotid and vertebral arteries. IMPRESSION: Senescent findings in the brain without CT evidence of acute intracranial abnormality or significant adverse change. Dictated on workstation # [id number] Dict: 06/22/22 1233 Trans: 06/22/22 1237 [facility] [id number] Interpreted by: LUTHER KITCHEN MD Electronically signed by: Precious Imaging: Xray Plain Films/CT/US/NM/MRI: knee Comments [facility] [place] NAME: CARMELA CARVALHO [facility] REC#: [id number] PT STATUS: REG ER : 1955 PHYSICIAN: NATHAN SUAZO APRN ADMIT DATE: 06/22/22/ER Signed Date of Exam:06/22/22 KNEE, 3 VIEWS, BILATERAL EXAMINATION: Bilateral knee radiograph EXAM DATE: 06/22/2022 12:46 PM COMPARISON: 05/07/2022 HISTORY: Bilateral knee pain after a fall. TECHNIQUE: 3 views of both knees. FINDINGS: There is no acute fracture, dislocation, or destructive osseous process. The joint spaces are normal. The soft tissues are normal. IMPRESSION: 1. No acute osseous abnormality. Dictated by: Dictated on workstation # [id number] Dict: 06/22/22 1258 Trans: 06/22/22 1319 [facility] [id number] Interpreted by: ARNOLD NATH DO Electronically signed by: ARNOLD NATH DO 06/22/22 1319 Departure Communication (Admissions) Time/Spoke to Consulting Phy: 13:44 Dr. Sullivan, cardiology, consulted due to patient's elevated troponin. He recommends admission, continue home meds, and he will see her tomorrow. Impression Primary Impression: Dehydration Additional Impression: Elevated troponin Disposition: ADMITTED INPATIENT Condition: Stable Admissions Decision to Admit Reason: Admit from ER (General) Decision to Admit/Date: Jun 22, 2022 Time/Decision to Admit Time: 16:02 Departure-Patient Inst. Referrals: PATRICE RODNEY MD (PCP/Family) Primary Care Physician Copy Copies To 1: PATRICE RODNEY MD, BRITTANY R APRN Jun 22, 2022 12:23
[2022-06-22 12:26] LABS: ALBUMIN 3.4 GM/DL (3.2-4.5); POTASSIUM 4.1 MMOL/L (3.6-5.0)
[2022-06-22 12:27] LABS: CALCIUM 9.6 MG/DL (8.5-10.1); PROTHROMBIN TIME PATIENT 13.6 SEC (12.2-14.7)
[2022-06-22 12:28] LABS: TOTAL PROTEIN 5.6 GM/DL (6.4-8.2)
[2022-06-22 12:30] LABS: BILIRUBIN,TOTAL 0.6 MG/DL (0.1-1.0)
[2022-06-22 12:32] LABS: CREATININE SERUM 2.52 MG/DL (0.60-1.30)
--- NOTE | 2022-06-22 12:37 | Diagnostic Imaging Report ---
PROCEDURE: CT head without contrast. TECHNIQUE: Multiple contiguous axial images were obtained through the brain without the use of intravenous contrast. Auto Exposure Controls were utilized during the CT exam to meet ALARA standards for radiation dose reduction. INDICATION: Altered mental status COMPARISON: 03/03/2022 Ventricles and sulci are diffusely prominent with moderate low-density in the cerebral white matter, bilaterally. Nonacute lacunar infarct is seen in the right thalamus. There is no evidence of hemorrhage. There is no abnormal mass effect or shift of midline structures. Calvarium is intact and the visualized paranasal sinuses are clear. There is moderate atherosclerosis present within distal internal carotid and vertebral arteries. IMPRESSION: Senescent findings in the brain without CT evidence of acute intracranial abnormality or significant adverse change. Dictated by: Dictated on workstation # [id number]
--- NOTE | 2022-06-22 12:59 | Diagnostic Imaging Report ---
EXAMINATION: Bilateral knee radiograph EXAM DATE: 06/22/2022 12:46 PM COMPARISON: 05/07/2022 HISTORY: Bilateral knee pain after a fall. TECHNIQUE: 3 views of both knees. FINDINGS: There is no acute fracture, dislocation, or destructive osseous process. The joint spaces are normal. The soft tissues are normal. IMPRESSION: 1. No acute osseous abnormality. Dictated by: Dictated on workstation # [id number]
--- NOTE | 2022-06-22 12:59 | Diagnostic Imaging Report ---
EXAMINATION: Chest 1 view HISTORY: AMS COMPARISON: 02/14/2022 FINDINGS: Heart size is upper limits of normal. The lungs are clear without consolidation, pleural effusion, or pneumothorax. The osseous structures are intact. IMPRESSION: 1. No acute radiographic abnormality in the chest. Dictated by: Dictated on workstation # [id number]
[2022-06-22 14:03] LABS: CLARITY,URINE CLEAR; COLOR,URINE AMBER; GLUCOSE, URINE (UA) TRACE (NEGATIVE); KETONES,URINE TRACE (NEGATIVE); LEUKOCYTE ESTERASE ,URINE NEGATIVE (NEGATIVE); NITRITE,URINE NEGATIVE (NEGATIVE); PROTEIN,URINE 3+ (NEGATIVE)
[2022-06-22 14:14] LABS: AMORPHOUS SEDIMENT,UR RARE AMOR URATES /LPF; BACTERIA,URINE FEW /HPF; BILIRUBIN,URINE 1+ (NEGATIVE)
[2022-06-22 15:40] LABS: BILIRUBIN,URINE 1+ (NEGATIVE); CLARITY,URINE CLEAR; COLOR,URINE ORANGE; GLUCOSE, URINE (UA) NEGATIVE (NEGATIVE); KETONES,URINE TRACE (NEGATIVE); NITRITE,URINE NEGATIVE (NEGATIVE); PH,URINE 5.5 (5-9); PROTEIN,URINE 3+ (NEGATIVE)
[2022-06-22 15:41] LABS: LEUKOCYTE ESTERASE ,URINE NEGATIVE (NEGATIVE)
[2022-06-22 15:44] LABS: AMORPHOUS SEDIMENT,UR LARGE AMOR URATES /LPF; BACTERIA,URINE FEW /HPF; SQUAMOUS EPITHELIAL CELL,UR >50 /HPF
[2022-06-22 15:46] LABS: WBC,URINE 0-2 /HPF
--- NOTE | 2022-06-22 16:10 | History & Physical ---
History of Present Illness HPI/Chief Complaint CC: Unresponsive episode with hypotension HPI: This is a 67yoWF clinic patient of Dr Peralta who has a lengthy history of DM and complications who resides in a NH due to chronic and severe debility who presented to the ER with unresponsive episode with hypotension and elevated troponin assessed to be from dehydration. Patient appears to be more declined since last seen by this examiner. IVF initiated along with standard protocol meds and will be monitored closely. NO evidence of any sepsis. Repeat UA via in out cath had squams indicating dirty non-sterile technique. Source: patient, RN/MD Exam Limitations: clinical condition Date Seen 06/22/22 Time Seen by a Provider: 12:50 Attending Physician Amauri Peralta MD PCP Admitting Physician: Attending Physician: Referring Physician Date of Admission Home Medications & Allergies Home Medications Reviewed patient Home Medication Reconciliation performed by pharmacy medication reconciliations geothermal technician and/or nursing. Patients Allergies have been reviewed. Allergies Allergies Coded Allergies codeine (Verified Allergy, Severe, SOA, pt has rec Lortab, Percocet, morphine in the past, 11/17/20) bupropion (Verified Allergy, Mild, 11/16/20) COUGH isosorbide (Verified Allergy, Mild, 11/16/20) COUGH levofloxacin (Verified Allergy, Mild, 11/16/20) COUGH ramipril (Verified Allergy, Mild, 11/16/20) COUGH celecoxib (Unverified Allergy, Unknown, 03/08/15) cinacalcet (Verified Allergy, Unknown, 03/07/20) clarithromycin (Verified Allergy, Unknown, 03/07/20) hydrocodone (Verified Adverse Reaction, Unknown, 11/16/20) HYPOTENSION Past Xtqafec-Vcoqio-Lcllxr Hx Past Med/Social Hx: Reviewed Nursing Past Med/Soc Hx, Reviewed and Corrections made Patient Social History Marrital Status: single Employed/Student: retired Alcohol Use: Denies Use Smoking Status: Never a Smoker 2nd Hand Smoke Exposure: Yes Recent Hopitalizations: No Recent Infectious Disease Expo: No Immunizations Up To Date Tetanus Booster (TDap): Unknown Date of Pneumonia Vaccine: Mar 07, 2014 Date of Influenza Vaccine: Jan 03, 2022 Seasonal Allergies Seasonal Allergies: No Past Medical History Surgeries: Gallbladder, Hysterectomy, Orthopedic, Tonsillectomy Respiratory: Sleep Apnea Currently Using CPAP: No Currently Using BIPAP: No Cardiac: Cardiomyopathy, Coronary Artery Disease, Heart Attack, High Cholesterol, Hypertension Neurological: Neuropathy, Stroke, Vertigo Reproductive: No Sexually Transmitted Disease: No HIV/AIDS: No Female Reproductive Disorders: Denies Hysterectomy Genitourinary: Kidney Stones, Renal Failure Gastrointestinal: Gastroesophageal Reflux, Chronic Constipation Gastroparesis Musculoskeletal: Osteoporosis, Arthritis, Back Injury Endocrine: Diabetes, Insulin dep HEENT: Chronic Ear Infection Hearing Impairment: Hard of Hearing Psychosocial: Sleep Difficulties, Anxiety, Depression Skin/Integumentary: Psoriasis History of Blood Disorders: No Adverse Reaction to Blood [place]: No Family History Cancer (lung and ovarian) 09 BROTHER, Onset:30's - 40 09 SISTER, Onset:60 years & older Congenital heart disease (mitral valve prolapse) 09 SISTER 09 SISTER Congestive heart failure 03 FATHER, Onset:60 years & older 03 MOTHER, Onset:50's - 60 09 SISTER, Onset:60 years & older Family history: Arthritis 03 MOTHER, Onset:60 years & older Family history: Diabetes mellitus 03 FATHER, Onset:60 years & older 09 SISTER, Onset:50's - 60 Family history: Gastrointestinal disease 03 FATHER, Onset:50's - 60 Hereditary disease (HTN) 09 SISTER, Onset:40's - 50 History of - disorder (Urinary problems) 09 SISTER, Onset:60 years & older 09 SISTER, Onset:20's - 25 History of - respiratory disease (asthma) 09 SISTER Hypercholesterolemia 09 SISTER, Onset:50's - 60 Psychotic disorder (anxiety) 09 SISTER, Onset:30's - 40 Heart Disease Review of Systems Constitutional: see HPI Physical Exam Physical Exam Vital Signs Vital Signs - First Documented 06/22/22 06/22/22 12:03 18:18 Temp 36.3 Pulse 71 Resp 14 B/P (MAP) 89/61 (70) Pulse Ox 96 O2 Delivery Room Air FiO2 21 Capillary Refill : Less Than 3 Seconds Height, Weight, BMI Height: 5'6.00" Weight: 220lbs. 10.0oz. 100.480428ym; 32.00 BMI Method:Estimated General Appearance: No Apparent Distress, WD/WN, Chronically ill Respiratory: Lungs Clear, Normal Breath Sounds, No Accessory Muscle Use, No Respiratory Distress Cardiovascular: Regular Rate, Rhythm, No Edema, No Gallop, No JVD, No Murmur, Normal Peripheral Pulses Neurologic/Psychiatric: Alert, Oriented x3, Normal Mood/Affect, Motor Weakness (CVA residual) Results Results/Procedures Labs Laboratory Tests 06/22/22 12:06 Patient resulted labs reviewed. Assessment/Plan Admission Diagnosis Assessment: Unresponsive episode with hypotension assessed to be dehydration Elevated troponin consulted Dr Bhakta h/o left femur fracture s/p repair Post op anemia h/o right sided weakness with facial droop not a tPa candidate per Stroke center [facility] MRI inconclusive for CVA 03/07/20 s/p CVA w/residual left facial droop and left upper and lower extremity weakness August 2018 IRF course DM poorly controlled CAD inoperable multi-vessel disease declined heart transplant at [facility] 2014 HTN HLP CKD Stage IV Insomnia GERD Gastroparesis OP Neuropathy Hypoglycemia episodes ANNIE on CPAP Severe decline and debility requiring NH placement Plan: IVF Cardiology Home meds Admission Status: Observation JAG KIRKLAND DO Jun 22, 2022 16:10
[2022-06-22 18:00] VITALS: BP 134/84
[2022-06-22] MEDS ORDERED: ENOXAPARIN 40 MG/0.4 ML (LOVENOX) SYR SC SCH (18:15)
[2022-06-22] MEDS ORDERED: polyethylene glycoL POWDER 17 GM (MIRALAX) PACK PO PRN (18:15)
[2022-06-22] MEDS ORDERED: LACTULOSE SYRUP 10GM/15ML (ENULOSE) 30ML UDC PO PRN (18:15)
[2022-06-22] MEDS ORDERED: diphenhydrAMINE 50 MG/ML INJ (BENADRYL) IVP PRN (18:15)
[2022-06-22] MEDS ORDERED: BISACODYL 10 MG SUPP (DULCOLAX) PR PRN (18:15)
[2022-06-22] MEDS ORDERED: ONDANSETRON 4 MG (ZOFRAN) ORAL DISSOLVE TAB PO PRN (18:15)
[2022-06-22] MEDS ORDERED: HYDROmorphone 2 MG/ML VIAL (DILAUDID) IV PRN (18:15)
[2022-06-22] MEDS ORDERED: ONDANSETRON 4 MG/2 ML (SDV) Z0FRAN IV PRN (18:15)
[2022-06-22] MEDS ORDERED: ACETAMINOPHEN 325 MG TABLET PO PRN (18:15)
[2022-06-22] MEDS ORDERED: diphenhydrAMINE 25 MG TAB (BENADRYL) PO PRN (18:15)
[2022-06-22] MEDS ORDERED: CALCIUM CARBONATE 500 MG (TUMS) TAB.CHEW PO PRN (18:15)
[2022-06-22] MEDS ORDERED: ANTACID SUSP 30 ML UDC (MYLANTA) PO PRN (18:15)
[2022-06-22] MEDS ORDERED: MELATONIN 3 MG TABLET PO PRN (18:15)
[2022-06-22] MEDS ORDERED: MILK OF MAGNESIA 400 MG/5 ML 30 ML UDC PO PRN (18:15)
[2022-06-22 18:18] VITALS: BP 89/61
[2022-06-22 18:30] VITALS: BP 121/75
[2022-06-22] MEDS: ENOXAPARIN INJECTION 30 MG/0.3 ML SYR SC SCH (19:04)
[2022-06-22] MEDS: NS IV 1000 ML 1,000 ML IV SCH (19:04)
[2022-06-22 19:52] VITALS: BP 132/85
[2022-06-22] MEDS: SENNOSIDES 8.6 MG (SENOKOT) TAB PO SCH (21:24)
[2022-06-22] MEDS: DOCUSATE SODIUM 100 MG (COLACE) CAP PO SCH (21:24)
[2022-06-22] MEDS: inSUlin ASPART (NovoLOG) 1 UNIT/0.01 ML (CHARGE PER UNIT) SC SCH (21:24)
[2022-06-22] MEDS: RANOLAZINE ER 500 MG TAB (RANEXA) PO SCH (21:29)
[2022-06-22 23:58] VITALS: BP 131/78
[2022-06-23] MEDS: NS IV 1000 ML 1,000 ML IV SCH ×3 (02:43→18:23)
[2022-06-23 04:00] VITALS: BP 119/81
[2022-06-23 05:02] LABS: BASOPHILS % (AUTO) 0 % (0-10); EOSINOPHILS # (AUTO) 0.2 10^3/uL (0.0-0.3); EOSINOPHILS % (AUTO) 2 % (0-10); HEMATOCRIT 36 % (35-52); LYMPHOCYTES # (AUTO) 3.1 10^3/uL (1.0-4.0); LYMPHOCYTES % (AUTO) 40 % (12-44); MEAN CORPUSCULAR HEMOGLOBIN 33 pg (25-34); MEAN CORPUSCULAR HGB CONC 34 g/dL (32-36); MEAN CORPUSCULAR VOLUME 97 fL (80-99); MEAN PLATELET VOLUME 12.2 fL (9.0-12.2); MONOCYTES # (AUTO) 0.5 10^3/uL (0.0-1.0); MONOCYTES % (AUTO) 7 % (0-12); NEUTROPHILS # (AUTO) 3.8 10^3/uL (1.8-7.8); NEUTROPHILS % (AUTO) 50 % (42-75); PLATELET COUNT 133 10^3/uL (130-400); WHITE BLOOD COUNT 7.6 10^3/uL (4.3-11.0)
[2022-06-23 05:15] LABS: POTASSIUM 3.9 MMOL/L (3.6-5.0)
[2022-06-23 05:16] LABS: CALCIUM 9.5 MG/DL (8.5-10.1)
[2022-06-23 05:17] LABS: TOTAL PROTEIN 5.4 GM/DL (6.4-8.2)
[2022-06-23 05:19] LABS: BILIRUBIN,TOTAL 0.3 MG/DL (0.1-1.0)
[2022-06-23 05:21] LABS: CREATININE SERUM 2.33 MG/DL (0.60-1.30)
[2022-06-23] MEDS: inSUlin ASPART (NovoLOG) 1 UNIT/0.01 ML (CHARGE PER UNIT) SC SCH ×4 (05:34→21:00)
[2022-06-23 07:48] VITALS: BP 135/92
[2022-06-23] MEDS ORDERED: CLOPIDOGREL 75 MG (PLAVIX) TABLET PO SCH (09:00)
[2022-06-23] MEDS ORDERED: ASPIRIN E.C. 81 MG (ECOTRIN) TAB PO SCH (09:00)
[2022-06-23] MEDS: ASPIRIN 81 MG CHEW (CHILDREN'S ASA) PO SCH (09:15)
[2022-06-23] MEDS: RANOLAZINE ER 500 MG TAB (RANEXA) PO SCH ×2 (09:15→20:31)
[2022-06-23] MEDS: CLOPIDOGREL 75 MG (PLAVIX) TABLET PO SCH (09:15)
[2022-06-23] MEDS: SENNOSIDES 8.6 MG (SENOKOT) TAB PO SCH ×2 (09:18→21:00)
[2022-06-23] MEDS: DOCUSATE SODIUM 100 MG (COLACE) CAP PO SCH ×2 (09:18→21:00)
[2022-06-23 12:00] VITALS: BP 140/94
--- NOTE | 2022-06-23 12:41 | Consultation-Cardiology ---
HPI-Cardiology Cardiology Consultation: Date of Consultation 06/23/22 Date of Admission Attending Physician Amauri Rodney MD Admitting Physician Admitting Physician: Teressa Goodrich DO Attending Physician: Amauri Rodney MD Consulting Physician JUAN A BARAJAS MD HPI: Time Seen by a Provider: 10:45 Ms. Silvestre is a 67-year-old female with a history of chronic renal insufficiency, baseline creatinine of 1.5, SVT, MD in 2013, assisted living resident, wheelchair-bound, diabetes, hypertension, hyperlipidemia, nonoperable/nonintervenable CAD who presents for evaluation of nonresponsiveness. Patient was recently discharged from [facility] on 416 for altered mental status and dehydration with acute kidney injury. During that hospitalization her creatinine improved to 2.1 with IV fluids she did have a urine culture which came back with no growth. She was discharged back to her assisted living facility and it appears that she was found to be lethargic relatively unresponsive for the better part of 1 hour. In that setting they became concerned and called EMS for further evaluation on arrival to the emergency room her initial blood pressures were 89/61. Her initial troponin was 0.09. EKG demonstrated normal sinus rhythm, abnormal R wave progression across the precordium, inferior Q waves with nonspecific T wave changes in the inferior leads which is relatively unchanged from prior EKG. Chest x-ray is negative head CT is negative knee x-ray is negative for any acute concerns. She did have a transthoracic echocardiogram back in February 2022 which demonstrated an EF of greater than 60% Mild MR with an RVSP of 38. It should be noted that the patient has nonoperable, nonintervenable CAD with severe LAD disease severe left circumflex distal disease severe proximal ramus intermedius disease and severe RCA stenosis. Patient has been turned down for intervention at [facility] as well as [facility] in [place]. She was also sent to [place] and was turned down for orthotopic heart transplant. Today, she states that she has had no recent chest discomfort or shortness of breath. She states that she has been quite lethargic and weak. She states that her p.o. intake has not been the best. She reports nausea vomiting diarrhea and an increased number of falls recently. He and COVID are negative lactate is 1.9. Review of Systems-Cardiology Review of Systems Other comments All systems were reviewed and are negative except for what has been described in HPI [id number] Hx Patient Social History Marrital Status: single Employed/Student: retired Smoking Status: Never a Smoker 2nd Hand Smoke Exposure: Yes Have you traveled recently?: No Alcohol Use?: No Pt feels they are or have been: No Immunizations Up To Date Tetanus Booster (TDap): Unknown Date of Pneumonia Vaccine: Mar 07, 2014 Date of Influenza Vaccine: Jan 03, 2022 Past Medical History PMH Chronic renal insufficiency, baseline creatinine of 1.5 SVT CAD status post MD in 2014 Assisted living resident Wheelchair-bound Diabetes Hypertension Hyperlipidemia Nonintervenable/nonoperable CAD Family Medical History Family History: Cancer (lung and ovarian) 09 BROTHER, Onset:30's - 40 09 SISTER, Onset:60 years & older Congenital heart disease (mitral valve prolapse) 09 SISTER 09 SISTER Congestive heart failure 03 FATHER, Onset:60 years & older 03 MOTHER, Onset:50's - 60 09 SISTER, Onset:60 years & older Family history: Arthritis 03 MOTHER, Onset:60 years & older Family history: Diabetes mellitus 03 FATHER, Onset:60 years & older 09 SISTER, Onset:50's - 60 Family history: Gastrointestinal disease 03 FATHER, Onset:50's - 60 Hereditary disease (HTN) 09 SISTER, Onset:40's - 50 History of - disorder (Urinary problems) 09 SISTER, Onset:60 years & older 09 SISTER, Onset:20's - 25 History of - respiratory disease (asthma) 09 SISTER Hypercholesterolemia 09 SISTER, Onset:50's - 60 Psychotic disorder (anxiety) 09 SISTER, Onset:30's - 40 Allergies and Home Medications Allergies Coded Allergies: codeine (Verified Allergy, Severe, SOA, pt has rec Lortab, Percocet, morphine in the past, 11/17/20) bupropion (Verified Allergy, Mild, 11/16/20) COUGH isosorbide (Verified Allergy, Mild, 11/16/20) COUGH levofloxacin (Verified Allergy, Mild, 11/16/20) COUGH ramipril (Verified Allergy, Mild, 11/16/20) COUGH celecoxib (Unverified Allergy, Unknown, 03/08/15) cinacalcet (Verified Allergy, Unknown, 03/07/20) clarithromycin (Verified Allergy, Unknown, 03/07/20) hydrocodone (Verified Adverse Reaction, Unknown, 11/16/20) HYPOTENSION Patient Home Medication List Home Medication List Reviewed: Yes Acetaminophen (Acetaminophen) 500 Mg Tablet, 1,000 MG PO Q6H PRN for PAIN-MILD (1-4) OR TEMPATURE, (Reported) Entered as Reported by: KIKO CABELLO on 11/16/20 0900 Last Action: Reviewed Allopurinol (Allopurinol) 100 Mg Tablet, 100 MG PO 1200, (Reported) Entered as Reported by: АНДРЕЙ MAK on 09/10/20 114 Last Action: Reviewed Alprazolam (Alprazolam) 0.5 Mg Tablet, 0.5 MG PO HS, (Reported) Entered as Reported by: АНДРЕЙ MAK on 02/13/221436 Last Action: Reviewed Amlodipine Besylate (Amlodipine Besylate) 10 Mg Tablet, 10 MG PO 1200, (Reported) Entered as Reported by: АНДРЕЙ MAK on 02/13/221436 Last Action: Reviewed Aspirin (Aspirin EC) 81 Mg Tablet.dr, 81 MG PO DAILY, (Reported) Entered as Reported by: АНДРЕЙ MAK on 09/14/20 1539 Last Action: Reviewed Atorvastatin Calcium (Atorvastatin Calcium) 80 Mg Tablet, 80 MG PO HS, (Reported) Entered as Reported by: АНДРЕЙ MAK on 09/10/20 114 Last Action: Reviewed Clopidogrel Bisulfate (Plavix) 75 Mg Tablet, 75 MG PO 1200, (Reported) Entered as Reported by: АНДРЕЙ MAK on 09/14/20 1539 Last Action: Reviewed Docusate Sodium (Docusate Sodium) 100 Mg Capsule, 100 MG PO Q12H, (Reported) Entered as Reported by: АНДРЕЙ MAK on 06/19/22 0940 Last Action: Reviewed Ergocalciferol (Vitamin D2) (Vitamin D2) 1,250 Mcg (49446 Unit) Capsule, 1,250 MCG PO WEEK, (Reported) Entered as Reported by: АНДРЕЙ MAK on 02/13/221436 Last Action: Reviewed Gabapentin (Gabapentin) 100 Mg Capsule, 100 MG PO HS, (Reported) Entered as Reported by: АНДРЕЙ MAK on 02/13/221436 Last Action: Reviewed Insulin NPH Human Isophane (Novolin N) 100 Unit/Ml Vial, 40 UNIT SQ HS, (Repo rted) Entered as Reported by: KIKO CABELLO on 11/16/20850 Last Action: Reviewed Insulin NPH Human Isophane (Novolin N) 100 Unit/Ml Vial, 35 UNIT SQ DAILY, (Reported) Entered as Reported by: KIKO CABELLO on 11/16/20850 Last Action: Reviewed Insulin Regular, Human (Humulin R) 100 Unit/Ml Soln, UNITS SQ TIDAC, (Reported) Entered as Reported by: KIKO CABELLO on 11/16/20850 Last Action: Reviewed Losartan Potassium (Losartan Potassium) 100 Mg Tablet, 100 MG PO DAILY, (Reported) Entered as Reported by: АНДРЕЙ MAK on 06/19/22939 Last Action: Reviewed Melatonin (Melatonin) 5 Mg Tablet, 5 MG PO HS, (Reported) Entered as Reported by: АНДРЕЙ MAK on 11/17/20 130 Last Action: Reviewed Pantoprazole Sodium (Pantoprazole Sodium) 40 Mg Tablet.dr, 40 MG PO 1200, (Reported) Entered as Reported by: KIKO CABELLO on 11/16/20850 Last Action: Reviewed Ranolazine (Ranolazine ER) 1,000 Mg Tab.er.12h, 1,000 MG PO Q12H, (Reported) Entered as Reported by: АНДРЕЙ MAK on 06/19/22939 Last Action: Reviewed Sertraline HCl (Sertraline HCl) 25 Mg Tablet, 25 MG PO HS, (Reported) Entered as Reported by: АНДРЕЙ MAK on 03/08/20 1331 Last Action: Reviewed Discontinued Medications Cephalexin (Cephalexin) 500 Mg Tablet, 500 MG PO TID Discontinued Reason: No Longer Taking Prescribed by: MARLEN KAMINSKI on 02/21/22 1221 Docusate Sodium (Docusate Sodium) 100 Mg Capsule, 100 MG PO BID Discontinued Reason: Duplicate Order Prescribed by: AMAURI RODNEY on 02/15/22 1201 Furosemide (Furosemide) 40 Mg Tablet, 40 MG PO 1200, (Reported) Discontinued Reason: No Longer Taking Entered as Reported by: АНДРЕЙ MAK on 06/19/22939 Last Action: Discontinued Meclizine HCl (Meclizine HCl) 25 Mg Tablet, 25 MG PO BID, (Reported) Discontinued Reason: No Longer Taking Entered as Reported by: KIKO CABELLO on 11/16/20 0900 Last Action: Discontinued Oxybutynin Chloride (Oxybutynin Chloride ER) 5 Mg Tab.er.24, 5 MG PO 1200, (Reported) Entered as Reported by: АНДРЕЙ MAK on 03/08/20 1331 Ranolazine (Ranexa) 1,000 Mg Tab.er.12h, 1,000 MG PO BID, (Reported) Discontinued Reason: Duplicate Order Entered as Reported by: CARMELO PETERS on 08/26/18 1218 Exam Vital Signs Vital Signs Date Time Temp Pulse Resp B/P (MAP) Pulse Ox O2 Delivery O2 Flow Rate FiO2 06/23/22 08:00 98 Room Air 06/23/22 07:48 36.6 101 10 135/92 (106) 06/22/22 18:18 21 Physical Exam Gen: No acute distress; A+O x 3, sitting comfortably in the bed Neck: soft supple, no cervical LAD Lungs: CTA-bilaterally; breath sounds diminished bilaterally but no quin wheezing, rales or rhonchi CV: nl s1/s2, no g-r, RRR; 2-3/6 sys murmur best at LSB Abd: soft nt nd, no HSM, + BS Ext: wwp, no c-c; 2+ DP and femoral pulses; 1+ BLE edema skin: no lesions rashes or ecchymoses are noted. Labs Laboratory Tests Test 06/22/22 12:47 06/22/22 13:53 06/22/22 14:58 06/22/22 18:26 Range/Units Influenza Type A (RT-PCR) Not Detected Not Detecte Influenza Type B (RT-PCR) Not Detected Not Detecte SARS-CoV-2 RNA (RT-PCR) Not Detected Not Detecte Urine Color UGO H ORANGE Urine Clarity CLEAR CLEAR Urine pH 5.0 5.5 5-9 Urine Specific [place] >=1.030 >=1.030 1.016-1.022 Urine Protein 3+ H 3+ H NEGATIVE Urine Glucose (UA) TRACE H NEGATIVE NEGATIVE Urine Ketones TRACE H TRACE H NEGATIVE Urine Nitrite NEGATIVE NEGATIVE NEGATIVE Urine Bilirubin 1+ H 1+ H NEGATIVE Urine Urobilinogen 1.0 0.2 < = 1.0 MG/DL Urine Leukocyte Esterase NEGATIVE NEGATIVE NEGATIVE Urine RBC (Auto) NEGATIVE NEGATIVE NEGATIVE Urine RBC NONE NONE /HPF Urine WBC 5-10 H 0-2 /HPF Urine Squamous Epithelial Cells 10-25 H >50 H /HPF Urine Crystals PRESENT H PRESENT H /LPF Urine Amorphous Sediment RARE RICHIE URATES H LARGE RICHIE URATES H /LPF Urine Bacteria FEW H FEW H /HPF Urine Casts PRESENT PRESENT /LPF Urine Hyaline Casts 2-5 H 2-5 H /LPF Urine Mucus NEGATIVE NEGATIVE /LPF Urine Culture Indicated CULTURE PENDING CULTURE PENDING Troponin I 0.073 H <0.028 NG/ML Test 06/22/22 20:57 06/23/22 00:18 06/23/22 04:21 06/23/22 10:43 Range/Units Glucometer 111 H 403 *H 70-110 MG/DL Troponin I 0.089 H <0.028 NG/ML White Blood Count 7.6 4.3-11.0 10^3/uL Red Blood Count 3.68 L 3.80-5.11 10^6/uL Hemoglobin 12.0 11.5-16.0 g/dL Hematocrit 36 35-52 % Mean Corpuscular Volume 97 80-99 fL Mean Corpuscular Hemoglobin 33 25-34 pg Mean Corpuscular Hemoglobin Concent 34 32-36 g/dL Red Cell Distribution Width 13.4 10.0-14.5 % Platelet Count 133 130-400 10^3/uL Mean Platelet Volume 12.2 9.0-12.2 fL Immature Granulocyte % (Auto) 1 % Neutrophils (%) (Auto) 50 42-75 % Lymphocytes (%) (Auto) 40 12-44 % Monocytes (%) (Auto) 7 0-12 % Eosinophils (%) (Auto) 2 0-10 % Basophils (%) (Auto) 0 0-10 % Neutrophils # (Auto) 3.8 1.8-7.8 10^3/uL Lymphocytes # (Auto) 3.1 1.0-4.0 10^3/uL Monocytes # (Auto) 0.5 0.0-1.0 10^3/uL Eosinophils # (Auto) 0.2 0.0-0.3 10^3/uL Basophils # (Auto) 0.0 0.0-0.1 10^3/uL Immature Granulocyte # (Auto) 0.1 0.0-0.1 10^3/uL Sodium Level 140 135-145 MMOL/L Potassium Level 3.9 3.6-5.0 MMOL/L Chloride Level 112 H 98-107 MMOL/L Carbon Dioxide Level 18 L 21-32 MMOL/L Anion Gap 10 5-14 MMOL/L Blood Urea Nitrogen 36 H 7-18 MG/DL Creatinine 2.33 H 0.60-1.30 MG/DL Estimat Glomerular Filtration Rate 22 BUN/Creatinine Ratio 15 Glucose Level 149 H 70-105 MG/DL Calcium Level 9.5 8.5-10.1 MG/DL Corrected Calcium 10.3 H 8.5-10.1 MG/DL Total Bilirubin 0.3 0.1-1.0 MG/DL Aspartate Amino Transf (AST/SGOT) 24 5-34 U/L Alanine Aminotransferase (ALT/SGPT) 21 0-55 U/L Alkaline Phosphatase 56 40-136 U/L B-Type Natriuretic Peptide 63.2 <100.0 PG/ML Total Protein 5.4 L 6.4-8.2 GM/DL Albumin 3.0 L 3.2-4.5 GM/DL A/P-Cardiology Plan Ms. Silvestre is a 67-year-old female with a history of chronic renal insufficiency, baseline creatinine of 1.5, SVT, MD in 2014, assisted living resident, wheelchair-bound, diabetes, hypertension, hyperlipidemia, nonoperable/nonintervenable CAD who presents for evaluation of nonresponsiveness. ## Acute on chronic renal insufficiency: Patient with creatinine up to 2.3 today. UA has been sent for urine culture we will follow-up on those results. - Avoid nephrotoxic agents, hold losartan and lasix for now - restart at lasix 40mg po QOD upon discharge ## CAD- non operable, non intervenable: - Resume portions of chronic regimen which includes aspirin 81 mg p.o. daily atorvastatin 80 mg p.o. nightly Plavix 75 mg p.o. daily and Ranexa 1000 mg p.o. twice daily. - Hold losartan 100 daily and Norvasc 10 mg p.o. daily for now. - restart norvasc upon discharge, may want to consider holding losartan given degree of renal insufficiency. - can start coreg 3.125mg po BiD in place of losartan ## AMS: seemed to improve with 2L IVF; initially presented with BP of 89/61 and now up to 110-130s systolic, sensorium improved; suspect dehydration - changes to lasix as noted above ## NSTeMI: Tn flat at 0.07 to 0.09 on three draws. Likely Type II NSTeMI in setting of dehydration and renal insufficiency. ; no complaints of angina. - no further Tn checks - TTE with normal cardiac structure and function, unchanged from prior TTE ## Dispo: -we will sign off for now, pl call with questions. JUAN A BARAJAS MD Jun 23, 2022 12:41
[2022-06-23 16:00] VITALS: BP 159/98
[2022-06-23] MEDS: ENOXAPARIN INJECTION 30 MG/0.3 ML SYR SC SCH (17:17)
--- NOTE | 2022-06-23 17:49 | Progress Note ---
Subjective Date Seen by a Provider: Jun 23, 2022 Time Seen by a Provider: 07:20 Subjective/Events-last exam patient communicating well this morning. She has been able to drink fluids without difficulty. Her mentation appears to be returning back to baseline. We talked for a while regarding her mentation and she was not exactly sure what happened. She was confused for a little while but it quickly resolved. She is still having issues with mobility and transfer Focused Exam Lactate Level 06/22/22 12:17: Lactic Acid Level 1.92 Objective Exam Vital Signs Date Time Temp Pulse Resp B/P (MAP) Pulse Ox O2 Delivery O2 Flow Rate FiO2 06/23/22 16:00 36.0 100 14 159/98 (118) 99 Room Air 06/23/22 12:40 96 06/23/22 12:00 36.2 93 10 140/94 (109) 98 Room Air 06/23/22 08:00 98 Room Air 06/23/22 07:48 36.6 101 10 135/92 (106) 98 Room Air 06/23/22 07:00 102 06/23/22 04:00 36.8 99 12 119/81 (94) 92 Room Air 06/23/22 01:00 90 06/22/22 23:58 36.7 82 12 131/78 (95) Room Air 06/22/22 20:00 98 Room Air 06/22/22 19:52 35.5 75 17 132/85 (101) 98 Room Air 06/22/22 19:00 74 06/22/22 18:30 73 10 121/75 (90) 98 Room Air 06/22/22 18:18 36.3 71 96 21 06/22/22 18:15 75 9 99 Room Air 06/22/22 18:00 35.7 76 28 134/84 (101) 100 Room Air 06/22/22 17:57 76 06/22/22 17:50 36.0 75 12 105/64 97 I & O 06/23/22 07:00 Intake Total 3150 ml Output Total 350 ml Balance 2800 ml Capillary Refill : Less Than 3 Seconds General Appearance: No Apparent Distress Neck: Supple Respiratory: Lungs Clear Cardiovascular: Regular Rate, Rhythm Gastrointestinal: soft Results Lab Laboratory Tests 06/22/22 18:26: Troponin I 0.073H 06/22/22 20:57: Glucometer 111H 06/23/22 00:18: Troponin I 0.089H 06/23/22 04:21: White Blood Count 7.6, Red Blood Count 3.68L, Hemoglobin 12.0, Hematocrit 36, Mean Corpuscular Volume 97, Mean Corpuscular Hemoglobin 33, Mean Corpuscular Hemoglobin Concent 34, Red Cell Distribution Width 13.4, Platelet Count 133, Mean Platelet Volume 12.2, Immature Granulocyte % (Auto) 1, Neutrophils (%) (Auto) 50, Lymphocytes (%) (Auto) 40, Monocytes (%) (Auto) 7, Eosinophils (%) (Auto) 2, Basophils (%) (Auto) 0, Neutrophils # (Auto) 3.8, Lymphocytes # (Auto) 3.1, Monocytes # (Auto) 0.5, Eosinophils # (Auto) 0.2, Basophils # (Auto) 0.0, Immature Granulocyte # (Auto) 0.1, Sodium Level 140, Potassium Level 3.9, Chloride Level 112H, Carbon Dioxide Level 18L, Anion Gap 10, Blood Urea Nitrogen 36H, Creatinine 2.33H, Estimat Glomerular Filtration Rate 22, BUN/Creatinine Ratio 15, Glucose Level 149H, Calcium Level 9.5, Corrected Calcium 10.3H, Total Bilirubin 0.3, Aspartate Amino Transf (AST/SGOT) 24, Alanine Aminotransferase (ALT/SGPT) 21, Alkaline Phosphatase 56, B-Type Natriuretic Peptide 63.2, Total Protein 5.4L, Albumin 3.0L 06/23/22 10:43: Glucometer 403*H 06/23/22 15:54: Glucometer 352H Microbiology 06/22/22 Urine Culture - Final, Complete NO GROWTH 06/22/22 Blood Culture - Preliminary, Resulted No growth Assessment/Plan Assessment/Plan Assess & Plan/Chief Complaint 1. Altered mental statusthis has resolved 2. Dehydration possibly accounting for #1 3. Elevated troponin -Consultation with Dr. Bhakta pending 4. History of chronic kidney disease -monitoring 5. Nonoperable coronary artery disease multivessel 6. Hypertension -we will add on antihypertensives as needed 7. Hyperlipidemia 9. Diabetes mellitus -For now she is on sliding scale "B" 10. Progressive debility -We discussed the possibility of her when she returns to the [facility], [facility] being on nursing side as opposed to the assisted living. At this point she is a little bit reluctant PATRICE RODNEY MD Jun 23, 2022 17:49
[2022-06-23 20:00] VITALS: BP 191/107
[2022-06-24] VITALS: BP 145/94
[2022-06-24] MEDS: NS IV 1000 ML 1,000 ML IV SCH (03:05)
[2022-06-24 04:00] VITALS: BP 149/97
[2022-06-24 04:22] LABS: BASOPHILS % (AUTO) 0 % (0-10); EOSINOPHILS # (AUTO) 0.1 10^3/uL (0.0-0.3); EOSINOPHILS % (AUTO) 2 % (0-10); HEMATOCRIT 33 % (35-52); HEMOGLOBIN 11.4 g/dL (11.5-16.0); LYMPHOCYTES # (AUTO) 2.1 10^3/uL (1.0-4.0); LYMPHOCYTES % (AUTO) 40 % (12-44); MEAN CORPUSCULAR HEMOGLOBIN 33 pg (25-34); MEAN CORPUSCULAR HGB CONC 34 g/dL (32-36); MEAN CORPUSCULAR VOLUME 96 fL (80-99); MEAN PLATELET VOLUME 12.1 fL (9.0-12.2); MONOCYTES # (AUTO) 0.3 10^3/uL (0.0-1.0); MONOCYTES % (AUTO) 6 % (0-12); NEUTROPHILS # (AUTO) 2.6 10^3/uL (1.8-7.8); NEUTROPHILS % (AUTO) 50 % (42-75); PLATELET COUNT 117 10^3/uL (130-400); WHITE BLOOD COUNT 5.3 10^3/uL (4.3-11.0)
[2022-06-24 04:33] LABS: CALCIUM 9.5 MG/DL (8.5-10.1)
[2022-06-24 04:34] LABS: TOTAL PROTEIN 5.5 GM/DL (6.4-8.2)
[2022-06-24 04:36] LABS: BILIRUBIN,TOTAL 0.5 MG/DL (0.1-1.0)
[2022-06-24 04:37] LABS: CREATININE SERUM 1.33 MG/DL (0.60-1.30)
[2022-06-24] MEDS: inSUlin ASPART (NovoLOG) 1 UNIT/0.01 ML (CHARGE PER UNIT) SC SCH ×4 (06:00→21:19)
--- NOTE | 2022-06-24 06:00 | Progress Note ---
Subjective Date Seen by a Provider: Jun 24, 2022 Time Seen by a Provider: 11:00 Subjective/Events-last exam Doing better No pain reported HLIVF Move to 4th floor Review of Systems General: Fatigue, Malaise Focused Exam Lactate Level 06/22/22 12:17: Lactic Acid Level 1.92 Objective Exam Last Set of Vital Signs Vital Signs Date Time Temp Pulse Resp B/P (MAP) Pulse Ox O2 Delivery O2 Flow Rate FiO2 06/24/22 04:00 86 149/97 (114) 99 Room Air 06/23/22 20:00 36.2 16 06/22/22 18:18 21 Capillary Refill : Less Than 3 Seconds I&O Intake and Output 06/24/22 00:00 Intake Total 1840 ml Output Total 550 ml Balance 1290 ml Intake Oral 840 ml IV Total 1000 ml Output Urine Total 550 ml # Voids 1 General: Alert, Oriented X3, Cooperative, No Acute Distress Lungs: Clear to Auscultation, Normal Air Movement Heart: Regular Rate, Normal S1, Normal S2, No Murmurs Psych/Mental Status: Mental Status NL, Other (flat) Results Lab Laboratory Tests 06/23/22 10:43: Glucometer 403*H 06/23/22 15:54: Glucometer 352H 06/23/22 20:37: Glucometer 178H 06/24/22 04:03: White Blood Count 5.3, Red Blood Count 3.49L, Hemoglobin 11.4L, Hematocrit 33L, Mean Corpuscular Volume 96, Mean Corpuscular Hemoglobin 33, Mean Corpuscular Hemoglobin Concent 34, Red Cell Distribution Width 13.4, Platelet Count 117L, Mean Platelet Volume 12.1, Immature Granulocyte % (Auto) 1, Neutrophils (%) (Auto) 50, Lymphocytes (%) (Auto) 40, Monocytes (%) (Auto) 6, Eosinophils (%) (Auto) 2, Basophils (%) (Auto) 0, Neutrophils # (Auto) 2.6, Lymphocytes # (Auto) 2.1, Monocytes # (Auto) 0.3, Eosinophils # (Auto) 0.1, Basophils # (Auto) 0.0, Immature Granulocyte # (Auto) 0.0, Sodium Level 141, Potassium Level 4.0, Chloride Level 113H, Carbon Dioxide Level 20L, Anion Gap 8, Blood Urea Nitrogen 22H, Creatinine 1.33H, Estimat Glomerular Filtration Rate 44, BUN/Creatinine Ratio 17, Glucose Level 160H, Calcium Level 9.5, Corrected Calcium 10.3H, Total Bilirubin 0.5, Aspartate Amino Transf (AST/SGOT) 20, Alanine Aminotransferase (ALT/SGPT) 20, Alkaline Phosphatase 59, Total Protein 5.5L, Albumin 3.0L Microbiology 06/22/22 Urine Culture - Final, Complete NO GROWTH 06/22/22 Blood Culture - Preliminary, Resulted No growth Assessment/Plan Assessment/Plan Assess & Plan/Chief Complaint Assessment: Unresponsive episode with hypotension assessed to be dehydration Elevated troponin consulted Dr Bhakta h/o left femur fracture s/p repair Post op anemia h/o right sided weakness with facial droop not a tPa candidate per Stroke center [facility] MRI inconclusive for CVA 03/07/20 s/p CVA w/residual left facial droop and left upper and lower extremity weakness August 2018 IRF course DM poorly controlled CAD inoperable multi-vessel disease declined heart transplant at [facility] 2014 HTN HLP CKD Stage IV Insomnia GERD Gastroparesis OP Neuropathy Hypoglycemia episodes ANNIE on CPAP Severe decline and debility requiring NH placement Plan: IVF heplock Move to 4th floor Cardiology Home meds JAG KIRKLAND DO Jun 24, 2022 06:00
[2022-06-24 08:10] VITALS: BP 179/114
[2022-06-24] MEDS: ASPIRIN 81 MG CHEW (CHILDREN'S ASA) PO SCH (09:06)
[2022-06-24] MEDS: CLOPIDOGREL 75 MG (PLAVIX) TABLET PO SCH (09:07)
[2022-06-24] MEDS: RANOLAZINE ER 500 MG TAB (RANEXA) PO SCH ×2 (09:07→20:41)
[2022-06-24] MEDS: DOCUSATE SODIUM 100 MG (COLACE) CAP PO SCH ×2 (09:08→20:41)
[2022-06-24] MEDS: SENNOSIDES 8.6 MG (SENOKOT) TAB PO SCH ×2 (09:08→20:41)
[2022-06-24 11:32] VITALS: BP 178/110
[2022-06-24] MEDS ORDERED: NON-FORMULARY MEDICATION 1 EA EA (Ranolazine (Ranolazine ER) 1,000 MG) PO SCH (11:45)
[2022-06-24] MEDS ORDERED: DOCUSATE SODIUM 100 MG (COLACE) CAP PO SCH (11:45)
[2022-06-24] MEDS ORDERED: VITAMIN D2 1.25 MG (50,000 UNITS) CAP PO SCH (11:45)
[2022-06-24] MEDS ORDERED: CLOPIDOGREL 75 MG (PLAVIX) TABLET PO SCH (12:00)
[2022-06-24] MEDS: ALLOPURINOL 100 MG (ZYLOPRIM) TAB PO SCH (12:29)
[2022-06-24] MEDS: inSUlin (REGULAR) HUMAN 1 UNIT/0.01 ML (CHARGE PER UNIT) SC SCH ×2 (12:29→16:50)
[2022-06-24] MEDS: amLODIPine 10 MG (NORVASC) TAB PO SCH (12:29)
[2022-06-24] MEDS: PANTOPRAZOLE 40 MG (PROTONIX) TAB PO SCH (12:29)
[2022-06-24 16:09] VITALS: BP 171/88
[2022-06-24] MEDS: ENOXAPARIN 40 MG/0.4 ML (LOVENOX) SYR SC SCH (18:13)
[2022-06-24 19:57] VITALS: BP 173/94
[2022-06-24] MEDS: SERTRALINE 50 MG (ZOLOFT) TABLET PO SCH (20:40)
[2022-06-24] MEDS: ALPRAZolam 0.5 MG (XANAX) TAB PO SCH (20:41)
[2022-06-24] MEDS ORDERED: MELATONIN 10 MG TABLET PO SCH (21:00)
[2022-06-24] MEDS ORDERED: NON-FORMULARY MEDICATION 1 EA EA (Melatonin 5 MG) PO SCH (21:00)
[2022-06-24] MEDS ORDERED: NON-FORMULARY MEDICATION 1 EA EA (Sertraline HCl 25 MG) PO SCH (21:00)
[2022-06-24] MEDS ORDERED: GABAPENTIN 100 MG (NEURONTIN) CAP PO SCH (21:00)
[2022-06-24] MEDS: inSUlin NPH (NovoLIN N) 1 UNIT/0.01 ML (CHARGE PER UNIT) SQ SCH (21:19)
[2022-06-25 00:16] VITALS: BP 169/96
[2022-06-25 04:01] VITALS: BP 149/89
[2022-06-25 05:07] LABS: BASOPHILS % (AUTO) 1 % (0-10); EOSINOPHILS # (AUTO) 0.1 10^3/uL (0.0-0.3); EOSINOPHILS % (AUTO) 2 % (0-10); HEMATOCRIT 34 % (35-52); HEMOGLOBIN 11.7 g/dL (11.5-16.0); LYMPHOCYTES # (AUTO) 2.9 10^3/uL (1.0-4.0); LYMPHOCYTES % (AUTO) 44 % (12-44); MEAN CORPUSCULAR HEMOGLOBIN 33 pg (25-34); MEAN CORPUSCULAR HGB CONC 35 g/dL (32-36); MEAN CORPUSCULAR VOLUME 95 fL (80-99); MEAN PLATELET VOLUME 11.6 fL (9.0-12.2); MONOCYTES # (AUTO) 0.4 10^3/uL (0.0-1.0); MONOCYTES % (AUTO) 7 % (0-12); NEUTROPHILS % (AUTO) 47 % (42-75); PLATELET COUNT 126 10^3/uL (130-400); WHITE BLOOD COUNT 6.5 10^3/uL (4.3-11.0)
[2022-06-25 05:15] LABS: ALBUMIN 3.1 GM/DL (3.2-4.5)
[2022-06-25 05:16] LABS: POTASSIUM 4.1 MMOL/L (3.6-5.0)
[2022-06-25 05:17] LABS: CALCIUM 10.1 MG/DL (8.5-10.1)
[2022-06-25 05:18] LABS: TOTAL PROTEIN 5.5 GM/DL (6.4-8.2)
[2022-06-25 05:20] LABS: BILIRUBIN,TOTAL 0.5 MG/DL (0.1-1.0)
[2022-06-25] MEDS: inSUlin ASPART (NovoLOG) 1 UNIT/0.01 ML (CHARGE PER UNIT) SC SCH ×4 (05:20→20:40)
[2022-06-25] MEDS: inSUlin (REGULAR) HUMAN 1 UNIT/0.01 ML (CHARGE PER UNIT) SC SCH ×3 (05:21→17:00)
[2022-06-25 05:22] LABS: CREATININE SERUM 1.17 MG/DL (0.60-1.30)
--- NOTE | 2022-06-25 06:29 | Progress Note ---
Subjective Date Seen by a Provider: Jun 25, 2022 Time Seen by a Provider: 11:00 Subjective/Events-last exam No major events Sleeps most of the time Sugars ok Creat 1.1 DC tomorrow by PCP Review of Systems General: Fatigue, Malaise Focused Exam Lactate Level 06/22/22 12:17: Lactic Acid Level 1.92 Objective Exam Last Set of Vital Signs Vital Signs Date Time Temp Pulse Resp B/P (MAP) Pulse Ox O2 Delivery O2 Flow Rate FiO2 06/25/22 04:01 36.8 81 18 149/89 (109) 96 Room Air 06/22/22 18:18 21 Capillary Refill : Less Than 3 Seconds I&O Intake and Output 06/25/22 00:00 Intake Total 3200 ml Output Total 1900 ml Balance 1300 ml Intake Oral 1200 ml IV Total 2000 ml Output Urine Total 1900 ml # Voids 3 General: Alert, Oriented X3, Cooperative, No Acute Distress Lungs: Clear to Auscultation, Normal Air Movement Heart: Regular Rate, Normal S1, Normal S2, No Murmurs Psych/Mental Status: Mental Status NL, Mood NL Results Lab Laboratory Tests 06/24/22 10:00: Glucometer 259H 06/24/22 15:58: Glucometer 241H 06/24/22 20:38: Glucometer 189H 06/25/22 04:58: Glucometer 107 06/25/22 04:59: White Blood Count 6.5, Red Blood Count 3.54L, Hemoglobin 11.7, Hematocrit 34L, Mean Corpuscular Volume 95, Mean Corpuscular Hemoglobin 33, Mean Corpuscular Hemoglobin Concent 35, Red Cell Distribution Width 13.2, Platelet Count 126L, Mean Platelet Volume 11.6, Immature Granulocyte % (Auto) 1, Neutrophils (%) (Auto) 47, Lymphocytes (%) (Auto) 44, Monocytes (%) (Auto) 7, Eosinophils (%) (Auto) 2, Basophils (%) (Auto) 1, Neutrophils # (Auto) 3.0, Lymphocytes # (Auto) 2.9, Monocytes # (Auto) 0.4, Eosinophils # (Auto) 0.1, Basophils # (Auto) 0.0, Immature Granulocyte # (Auto) 0.0, Sodium Level 140, Potassium Level 4.1, Chloride Level 112H, Carbon Dioxide Level 20L, Anion Gap 8, Blood Urea Nitrogen 18, Creatinine 1.17, Estimat Glomerular Filtration Rate 51, BUN/Creatinine Ratio 15, Glucose Level 112H, Calcium Level 10.1, Corrected Calcium 10.8H, Total Bilirubin 0.5, Aspartate Amino Transf (AST/SGOT) 17, Alanine Aminotransferase (ALT/SGPT) 17, Alkaline Phosphatase 57, Total Protein 5.5L, Albumin 3.1L Microbiology 06/22/22 Urine Culture - Final, Complete NO GROWTH 06/22/22 Blood Culture - Preliminary, Resulted No growth Assessment/Plan Assessment/Plan Assess & Plan/Chief Complaint Assessment: Unresponsive episode with hypotension assessed to be dehydration Elevated troponin consulted Dr Bhakta h/o left femur fracture s/p repair Post op anemia h/o right sided weakness with facial droop not a tPa candidate per Stroke center [facility] MRI inconclusive for CVA 03/07/20 s/p CVA w/residual left facial droop and left upper and lower extremity weakness August 2018 IRF course DM poorly controlled 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
[2022-06-25] MEDS: SENNOSIDES 8.6 MG (SENOKOT) TAB PO SCH ×2 (08:35→20:23)
[2022-06-25] MEDS: RANOLAZINE ER 500 MG TAB (RANEXA) PO SCH ×2 (08:35→20:22)
[2022-06-25] MEDS: CLOPIDOGREL 75 MG (PLAVIX) TABLET PO SCH (08:35)
[2022-06-25] MEDS: LOSARTAN 100 MG (COZAAR) TABLET PO SCH (08:35)
[2022-06-25] MEDS: ASPIRIN E.C. 81 MG (ECOTRIN) TAB PO SCH (08:35)
[2022-06-25] MEDS: DOCUSATE SODIUM 100 MG (COLACE) CAP PO SCH ×2 (08:35→20:23)
[2022-06-25] MEDS: inSUlin NPH (NovoLIN N) 1 UNIT/0.01 ML (CHARGE PER UNIT) SQ SCH ×2 (08:41→20:40)
[2022-06-25 08:48] VITALS: BP 148/83
[2022-06-25 11:25] VITALS: BP 133/85
[2022-06-25] MEDS: PANTOPRAZOLE 40 MG (PROTONIX) TAB PO SCH (12:08)
[2022-06-25] MEDS: amLODIPine 10 MG (NORVASC) TAB PO SCH (12:08)
[2022-06-25] MEDS: ALLOPURINOL 100 MG (ZYLOPRIM) TAB PO SCH (12:08)
[2022-06-25 15:39] VITALS: BP 124/82
[2022-06-25] MEDS: ENOXAPARIN 40 MG/0.4 ML (LOVENOX) SYR SC SCH (17:00)
[2022-06-25 19:53] VITALS: BP 129/81
[2022-06-25] MEDS: SERTRALINE 50 MG (ZOLOFT) TABLET PO SCH (20:22)
[2022-06-25] MEDS: ALPRAZolam 0.5 MG (XANAX) TAB PO SCH (20:22)
[2022-06-26 00:03] VITALS: BP 131/75
[2022-06-26 03:52] VITALS: BP 128/82
[2022-06-26] MEDS: inSUlin ASPART (NovoLOG) 1 UNIT/0.01 ML (CHARGE PER UNIT) SC SCH ×2 (04:35→11:17)
[2022-06-26 04:37] LABS: BASOPHILS % (AUTO) 0 % (0-10); EOSINOPHILS # (AUTO) 0.1 10^3/uL (0.0-0.3); EOSINOPHILS % (AUTO) 1 % (0-10); HEMATOCRIT 38 % (35-52); HEMOGLOBIN 13.2 g/dL (11.5-16.0); LYMPHOCYTES # (AUTO) 1.8 10^3/uL (1.0-4.0); LYMPHOCYTES % (AUTO) 17 % (12-44); MEAN CORPUSCULAR HEMOGLOBIN 33 pg (25-34); MEAN CORPUSCULAR HGB CONC 35 g/dL (32-36); MEAN CORPUSCULAR VOLUME 95 fL (80-99); MEAN PLATELET VOLUME 11.8 fL (9.0-12.2); MONOCYTES # (AUTO) 0.7 10^3/uL (0.0-1.0); MONOCYTES % (AUTO) 7 % (0-12); NEUTROPHILS # (AUTO) 8.1 10^3/uL (1.8-7.8); NEUTROPHILS % (AUTO) 75 % (42-75); PLATELET COUNT 173 10^3/uL (130-400); WHITE BLOOD COUNT 10.7 10^3/uL (4.3-11.0)
[2022-06-26 04:45] LABS: ALBUMIN 3.5 GM/DL (3.2-4.5)
[2022-06-26 04:48] LABS: TOTAL PROTEIN 6.4 GM/DL (6.4-8.2)
[2022-06-26 04:49] LABS: BILIRUBIN,TOTAL 0.3 MG/DL (0.1-1.0)
[2022-06-26 04:51] LABS: CREATININE SERUM 1.9 MG/DL (0.60-1.30)
[2022-06-26] MEDS: inSUlin (REGULAR) HUMAN 1 UNIT/0.01 ML (CHARGE PER UNIT) SC SCH ×2 (06:30→11:17)
[2022-06-26 07:36] VITALS: BP 136/84
--- NOTE | 2022-06-26 07:58 | Discharge Summary ---
Diagnosis/Chief Complaint Date of Admission Jun 22, 2022 at 17:40 Date of Discharge Discharge Date: Jun 26, 2022 Discharge Time: 12:00 Discharge Diagnosis 1. Altered mental statusthis has resolved 2. Dehydration possibly accounting for #1 3. Elevated troponin-non cardiac 4. History of chronic kidney disease 5. Nonoperable coronary artery disease multivessel 6. Hypertension 7. Hyperlipidemia 9. Diabetes mellitus 10. Progressive debility Discharge Summary Hospital Course Was the Problem List Reviewed?: Yes Hospital Course 1. Altered mental statusthis has resolved 2. Dehydration possibly accounting for #1 3. Elevated troponin -Consultation with Dr. Bhakta pending 4. History of chronic kidney disease -monitoring 5. Nonoperable coronary artery disease multivessel 6. Hypertension -we will add on antihypertensives as needed 7. Hyperlipidemia 9. Diabetes mellitus -For now she is on sliding scale "B" 10. Progressive debility -We discussed the possibility of her when she returns to the [facility] being on nursing side as opposed to the assisted living. At this point she is a little bit reluctant Labs Laboratory Tests 06/23/22 10:43: Glucometer 403*H 06/23/22 15:54: Glucometer 352H 06/23/22 20:37: Glucometer 178H 06/24/22 04:03: Red Blood Count 3.49L, Hemoglobin 11.4L, Hematocrit 33L, Platelet Count 117L, Chloride Level 113H, Carbon Dioxide Level 20L, Blood Urea Nitrogen 22H, Creatinine 1.33H, Glucose Level 160H, Corrected Calcium 10.3H, Total Protein 5.5L, Albumin 3.0L 06/24/22 10:00: Glucometer 259H 06/24/22 15:58: Glucometer 241H 06/24/22 20:38: Glucometer 189H 06/25/22 04:58: 06/25/22 04:59: Red Blood Count 3.54L, Hematocrit 34L, Platelet Count 126L, Chloride Level 112H, Carbon Dioxide Level 20L, Glucose Level 112H, Corrected Calcium 10.8H, Total Protein 5.5L, Albumin 3.1L 06/25/22 10:47: Glucometer 150H 06/25/22 16:05: Glucometer 175H 06/25/22 20:30: Glucometer 195H 06/26/22 04:21: 06/26/22 04:22: Neutrophils # (Auto) 8.1H, Chloride Level 109H, Carbon Dioxide Level 20L, Blood Urea Nitrogen 23H, Creatinine 1.90H, Calcium Level 11.0H, Corrected Calcium 11.4H Procedures None. Consultations Cardiology Discharge Physical Examination Allergies: Coded Allergies: codeine (Verified Allergy, Severe, SOA, pt has rec Lortab, Percocet, morphine in the past, 11/17/20) bupropion (Verified Allergy, Mild, 11/16/20) COUGH isosorbide (Verified Allergy, Mild, 11/16/20) COUGH levofloxacin (Verified Allergy, Mild, 11/16/20) COUGH ramipril (Verified Allergy, Mild, 11/16/20) COUGH celecoxib (Unverified Allergy, Unknown, 03/08/15) cinacalcet (Verified Allergy, Unknown, 03/07/20) clarithromycin (Verified Allergy, Unknown, 03/07/20) hydrocodone (Verified Adverse Reaction, Unknown, 11/16/20) HYPOTENSION Vitals & I&Os Vital Signs Date Time Temp Pulse Resp B/P (MAP) Pulse Ox O2 Delivery O2 Flow Rate FiO2 06/26/22 07:36 35.7 91 20 136/84 (101) 96 Room Air 06/22/22 18:18 21 General Appearance: Alert, Oriented X3 Respiratory: Clear to Auscultation Cardiovascular: Regular Rate Abdominal: Soft Skin: No Rashes Discharge Home Medications Reviewed and agree with Discharge Medication list on patient's Discharge Instruction sheet Instructions to Patient/Family Please see electronic discharge instructions given to patient. PATRICE RODNEY MD Jun 26, 2022 07:58
[2022-06-26] MEDS ORDERED: POLY17PO54 PO (08:04)
--- NOTE | 2022-06-26 08:07 | Discharge Inst-Simple/Standard ---
Discharge Inst-Standard Reconcile Patient Problems Problems Reviewed?: Yes Discharge Medications New, Converted or Re-Newed RX: Transmitted to Pharmacy ([facility]) Patient Instructions/Follow Up Plan of Care/Instructions/FU: Dr Rodney 1 week. Continue with Physical therapy as scheduled at [facility] Activity as Tolerated: Yes Discharge Diet: ADA Diet Return to The Hospital For: Altered mental status or evidence for dehydration PATRICE RODNEY MD Jun 26, 2022 08:07
[2022-06-26] MEDS: CLOPIDOGREL 75 MG (PLAVIX) TABLET PO SCH (08:39)
[2022-06-26] MEDS: RANOLAZINE ER 500 MG TAB (RANEXA) PO SCH (08:39)
[2022-06-26] MEDS: ASPIRIN E.C. 81 MG (ECOTRIN) TAB PO SCH (08:39)
[2022-06-26] MEDS: LOSARTAN 100 MG (COZAAR) TABLET PO SCH (08:39)
[2022-06-26] MEDS: DOCUSATE SODIUM 100 MG (COLACE) CAP PO SCH (08:39)
[2022-06-26] MEDS: SENNOSIDES 8.6 MG (SENOKOT) TAB PO SCH (08:39)
[2022-06-26] MEDS: inSUlin NPH (NovoLIN N) 1 UNIT/0.01 ML (CHARGE PER UNIT) SQ SCH ×2 (08:46→11:05)
--- NOTE | 2022-06-26 09:13 | Physical Therapy Evaluation ---
PT Evaluation-General Medical Diagnosis Admission Date Jun 22, 2022 at 17:40 Medical Diagnosis: dehydration Onset Date: Jun 22, 2022 Therapy Diagnosis Therapy Diagnosis: debility/weakness Height/Weight Height (Feet): 5 Height (Inches): 6.00 Weight (Pounds): 220 Weight (Ounces): 10.0 Precautions Precautions/Isolations: Standard Precautions Referral Physician: Kp Reason for Referral: Evaluation/Treatment Medical History Pertinent Medical History: Arthritis, CAD, CVA, DM, HTN, Hypothroidism, PA, Neuropathy Current History [place] from [place] secondary to AMS/lethargy (found unresponsive) Reviewed History: Yes Social History Home: Long Term Prior Prior Level of Function SCALE: Activities may be completed with or without assistive devices. 8-Gsdfneayid-ojgpyfg completes the activity by him/herself with no assistance from a helper. 5-Set-up or Clean-up Assistance-helper sets up or cleans up; patient completes activity. [place] assists only prior to or following the activity. 4-Supervision or Touching Assistance-helper provides verbal cues and/or touchi ng/steadying and/or contact guard assistance as patient completes activity. Assistance may be provided throughout the activity or intermittently. 3-Partial/Moderate Assistance-helper does LESS THAN HALF the effort. [place] lifts, holds or supports trunk or limbs, but provides less than half the effort. 2-Substantial/Maximal Assistance-helper does MORE THAN HALF the effort. [place] lifts or holds trunk or limbs and provides more than half the effort. 5-Lsjvaczjg-vtbfaz does ALL the effort. Patient does none of the effort to complete the activity. Or, the assistance of 2 or more helpers is required for the patient to complete the activity. If activity was not attempted, code reason: 7-Patient Refused. 9-Not Applicable-not attempted and the patient did not perform the activity before the current illness, exacerbation or injury. 10-Not Attempted due to Environmental Limitations-(lack of equipment, weather restraints, etc.). 88-Not Attempted due to Medical Conditions or Safety Concerns. Bed Mobility: 3 Transfers (B,C,W/C): 3 Gait: 3 Indoor Mobility (Ambulation): Needed Some Help Stairs: Not Applicalbe Prior Devices Use: Manual wheelchair, Walker PT Evaluation-Current Subjective Patient agrees to PT. Objective Patient Orientation: Normal For Age ROM/Strength ROM Lower Extremities bilateral LE WFL Strength Lower Extremities 3+/5 grossly bilateral LE all planes Integumentary/Posture Bowel Incontinence: No Bladder Incontinence: Yes Posture WFL Neuromuscular (Tone, Coordination, Reflexes) grossly intact Sensory Vision: Functional Hearing: Functional Transfers Lying to Sitting/Side of Bed(Q: 4 Sit to Stand (QC): 3 Chair/Whd-jo-Iocsj Xfer(QC): 3 Gait Mode of Locomotion: Walk Anticipated Mode of Locomotion: Walk Walk 10 feet (QC): 3 Distance: 30' Gait Assistive Device: FWW Comments/Gait Description slow, functional gait sequence Balance Sitting Static: Normal Sitting Dynamic: Normal Standing Static: Fair Standing Dynamic: Fair Assessment/Needs Patient will benefit from skilled PT to address functional strength and mobility to improve current LOF. Patient currently requires minimal to CGA with all mobility for safety. Rehab Potential: Fair PT [place] Burnisher Goals Correction Goals PT [place] Burnisher Goals Time Frame: July 08, 2022 Roll Left & Right (QC): 4 Sit to Lying (QC): 4 Lying-Sitting on Side/Bed(QC): 4 Sit to Stand (QC): 4 Chair/Yil-pt-Fsgkz Xfer(QC): 4 Toilet Transfer (QC): 4 Walk 10 feet (QC): 4 Walk 50ft with 2 Turns (QC): 4 PT Plan Problem List Problem List: Activity Tolerance, Functional Strength, Safety, Balance, Gait, Transfer, Bed Mobility Treatment/Plan Treatment Plan: Continue Plan of Care Treatment Plan: Bed Mobility, Education, Functional Activity Ruthie, Functional Strength, Gait, Safety, Therapeutic Exercise, Transfers Treatment Duration: July 08, 2022 Frequency: 6 times per week Estimated Hrs Per Day: .25 hour per day Time Time In: 825 Time Out: 840 DATE: Jun 26, 2022 Total Billed Treatment Time: 15 Total Billed Treatment 1 visit [facility] 15 min PANKAJ WELLER PT Jun 26, 2022 09:13
--- NOTE | 2022-06-26 10:45 | Occupational Therapy Eval ---
OT Evaluation-General/PLF Medical Diagnosis Admission Date Jun 22, 2022 at 17:40 Medical Diagnosis: dehydration Onset Date: Jun 22, 2022 Therapy Diagnosis Therapy Diagnosis: weakness Height/Weight Height (Feet): 5 Height (Inches): 6.00 Weight (Pounds): 220 Weight (Ounces): 10.0 Precautions Precautions/Isolations: Standard Precautions Weight Bear Status Weight Bearing Restriction: Full Weight Bearing Referral Physician: Kp Referral Reason: Activity Tolerance, Self Care, Evaluation/Treatment Medical History Pertinent Medical History: Arthritis, CAD, CVA, DM, HTN, Hypothroidism, [place], Neuropathy Reviewed History: Yes Social History Home: Assisted Living (currently on SNF side of [facility] d/t recent hospitalization) Entry Into Home: Level Entry ADL-Prior Level of Function SCALE: Activities may be completed with or without assistive devices. 7-Tsyxohtklz-xmlxzyr completes the activity by him/herself with no assistance from a helper. 5-Set-up or Clean-up Assistance-helper sets up or cleans up; patient completes activity. [place] assists only prior to or following the activity. 4-Supervision or Touching Assistance-helper provides verbal cues and/or touching/steadying and/or contact guard assistance as patient completes activity. Assistance may be provided throughout the activity or intermittently. 3-Partial/Moderate Assistance-helper does LESS THAN HALF the effort. [place] lifts, holds or supports trunk or limbs, but provides less than half the effort. 2-Substantial/Maximal Assistance-helper does MORE THAN HALF the effort. [place] lifts or holds trunk or limbs and provides more than half the effort. 9-Xocxdpxwt-nfulyb does ALL the effort. Patient does none of the effort to complete the activity. Or, the assistance of 2 or more helpers is required for the patient to complete the activity. If activity was not attempted, code reason: 7-Patient Refused. 9-Not Applicable-not attempted and the patient did not perform the activity before the current illness, exacerbation or injury. 10-Not Attempted due to Environmental Limitations-(lack of equipment, weather restraints, etc.). 88-Not Attempted due to Medical Conditions or Safety Concerns. Self Care: Independent Functional Cognition: Independent Drive Self: No OT Current Status Subjective Resting in bed, agreeable to OT Mental Status/Objective Patient Orientation: Person, Place, Time, Situation Current Glasses/Contacts: Yes Upper Extremity ROM BUE ROM WFLS Upper Extremity Coordination INTACT Upper Extremity Sensation INTACT Upper Extremity Strength -4/5 grossly ADL-Treatment Eating (QC): 6 Oral Hygiene (QC): 6 Shower/Bathe Self (QC): 7 Upper Body Dressing (QC): 6 Lower Body Dressing (QC): 4 On/Off Footwear (QC): 5 Toileting Hygiene (QC): 4 Education OT Patient Education: Exercise program, Modified ADL techniques, Progress toward Goal/Update tx plan, Purpose of tx/functional activities, Reviewed p recautions, Rehab process, Safety issues, Transfer techniques Teaching Recipient: Patient Teaching Methods: Demonstration, Discussion OT Accordion Maker Goals Accordion Maker Goals 1=Demonstrate adherence to instructed precautions during ADL tasks. 2=Patient will verbalize/demonstrate understanding of assistive devic es/modifications for ADL. 3=Patient will improve strength/tolerance for activity to enable patient to perform ADL's. OT Education/Plan Problem List/Assessment Assessment: Decreased Activ Tolerance, Impaired Self-Care Skills Discharge Recommendations Plan/Recommendations: Discontinue OT Therapy Discharge Recommendati: Other, See Comments (Resume SNF at [facility]) Treatment Plan/Plan of Care Treatment,Training & Education: Yes Patient would benefit from OT for education, treatment and training to promote independence in ADL's, mobility, safety and/or upper extremity function for ADL's. Plan of Care: ADL Retraining, Functional Mobility, Group Exercise/Act as Ind, UE Funct Exercise/Act Treatment Duration: Jun 26, 2022 Frequency: 1 time per week Estimated Hrs Per Day: .25 hour per day Agreement: Yes Rehab Potential: Guarded Time Start Time: 08:05 Stop Time: 08:20 DATE: Jun 26, 2022 Total Time Billed (hr/min): 15 Billed Treatment Time EVM 15 min KYAW ROBLES OT Jun 26, 2022 10:45
[2022-06-26] MEDS: amLODIPine 10 MG (NORVASC) TAB PO SCH (11:05)
[2022-06-26] MEDS: PANTOPRAZOLE 40 MG (PROTONIX) TAB PO SCH (11:05)
[2022-06-26] MEDS: ALLOPURINOL 100 MG (ZYLOPRIM) TAB PO SCH (11:05)
[2022-06-26 11:36] VITALS: BP 140/93
[2022-06-26 15:00] VITALS: BP 140/93
== END 2022-06-26 15:00 ==
LOC: EDUNIT# 12:00 → ER 12:01 → CSD 17:40 → 4TH 06-24 14:19
PROVIDERS: ADMIT Internal Medicine; ATTEND Family Medicine
DX: R41.82 Altered mental status, unspecified (principal); R53.81 Other malaise; E86.0 Dehydration; I25.10 Atherosclerotic heart disease of native coronary artery without angina pectoris; I12.9 Hypertensive chronic kidney disease with stage 1 through stage 4 chronic kidney disease, or unspecified chronic kidney disease; N18.4 Chronic kidney disease, stage 4 (severe); R77.8 Other specified abnormalities of plasma proteins; E11.22 Type 2 diabetes mellitus with diabetic chronic kidney disease; E78.5 Hyperlipidemia, unspecified; I95.9 Hypotension, unspecified; D64.89 Other specified anemias; G47.00 Insomnia, unspecified; K31.84 Gastroparesis; K21.9 Gastro-esophageal reflux disease without esophagitis; E11.43 Type 2 diabetes mellitus with diabetic autonomic (poly)neuropathy; E11.40 Type 2 diabetes mellitus with diabetic neuropathy, unspecified; E11.649 Type 2 diabetes mellitus with hypoglycemia without coma; G47.33 Obstructive sleep apnea (adult) (pediatric); Z99.81 Dependence on supplemental oxygen; Z79.4 Long term (current) use of insulin; Z79.899 Other long term (current) drug therapy; Z87.81 Personal history of (healed) traumatic fracture; Z86.73 Personal history of transient ischemic attack (TIA), and cerebral infarction without residual deficits; Z20.822 Contact with and (suspected) exposure to COVID-19; Z77.22 Contact with and (suspected) exposure to environmental tobacco smoke (acute) (chronic); Z79.82 Long term (current) use of aspirin
CPT/HCPCS: 51701; 70450; 71045; 73562; 80053 ×5; 81000; 82947 ×5; 83605; 83735; 83880; 84484 ×2; 85025 ×5; 85027; 85610; 85730; 87040; 87088; 87636; 93005; 96361 ×3; 96372 ×4; 97162; 97166; 99284; C8929; G0378 ×2; 36415; 93306

== ENCOUNTER → 2022-10-24 | Outpatient (CLI) | payer MEDICARE, OTHER ==
[~2022-10-24] MED LIST changes: -LOSA100T57 PO; +LOSA100T58 PO; +POLY17PO54 PO
--- NOTE | 2022-10-24 17:51 | Diagnostic Imaging Report ---
INDICATION: Postmenopausal state. COMPARISON: None available. FINDINGS: AP Spine L2-L4: [BMD (g/cm2): 1.142] [T-Score: -0.5] [Z-Score: 0.2] [BMD Previous: na] [BMD % Change: na] LT Hip Neck: [BMD (g/cm2): na] [T-Score: na] [Z-Score: na] LT Hip Total: [BMD (g/cm2):na] [T-Score:na] [Z-Score: na] [BMD Previous: na] [BMD % Change: na] RT Hip Neck: [BMD (g/cm2):0.630] [T-Score:-2.9] [Z-Score:-2.0] RT Hip Total: [BMD (g/cm2):0.673] [T-score:-2.7] [Z-Score:-2.0] [BMD Previous:na] [BMD % Change:na] *Indicates significant change from prior examination based on 95% confidence level. World Health Organization criteria for BMD interpretation classify patients as Normal (T-score at or above -1.0), Osteopenic (T-score between -1.0 and -2.5) or Osteoporotic (T-score at or below -2.5). LIMITATIONS AND MODIFICATION: The left hip is not evaluated secondary to postsurgical changes. IMPRESSION: 1. Osteoporosis. 2. Baseline examination. 3. See below National Osteoporosis Foundation guidelines on when to potentially initiate pharmacologic therapy. Based on the National Osteoporosis Foundation Guidelines, pharmacologic treatment should be initiated in any of the following, unless clinical conditions suggest otherwise: * Any patient with prior fragility fracture of the hip or vertebrae. A spine fracture indicates 5X risk for subsequent spine fracture and 2X risk for subsequent hip fracture. * Osteoporosis (T-score <-2.5). * Postmenopausal women and men age 50 and older with low bone mass/osteopenia (T-score between -1.0 and -2.5) by DXA and 10-year major osteoporotic fracture greater than 20% or a 10-year probability of hip fracture greater than 3%. These fracture risks are supplied above in the FRAX score, if applicable. * Clinician judgement and/or patient preferences may indicate treatment for people with 10-year fracture probabilities above or below these levels. Dictated by: Dictated on workstation # [id number]
== END ==
LOC: RAD 12:33
PROVIDERS: ATTEND Physician Assistant
DX: M81.0 Age-related osteoporosis without current pathological fracture (principal); Z78.0 Asymptomatic menopausal state
CPT/HCPCS: 77080

== ENCOUNTER 2022-12-15 15:31 | Emergency (ER) | payer MEDICARE, OTHER, MEDICAID ==
[~2022-12-15] VITALS: Ht 170 cm; Wt 96.0 kg
[~2022-12-15 15:31] MED LIST changes: -DICL100G13 TOP; +DICL100G60 TOP; -MECL-149 PO; +MECL-291 PO
[2022-12-15 15:48] LABS: BASOPHILS % (AUTO) 0 % (0-10); EOSINOPHILS # (AUTO) 0.1 10^3/uL (0.0-0.3); EOSINOPHILS % (AUTO) 2 % (0-10); HEMATOCRIT 37 % (35-52); HEMOGLOBIN 12.7 g/dL (11.5-16.0); LYMPHOCYTES # (AUTO) 2.5 10^3/uL (1.0-4.0); LYMPHOCYTES % (AUTO) 32 % (12-44); MEAN CORPUSCULAR HEMOGLOBIN 34 pg (25-34); MEAN CORPUSCULAR HGB CONC 34 g/dL (32-36); MEAN CORPUSCULAR VOLUME 98 fL (80-99); MEAN PLATELET VOLUME 11.4 fL (9.0-12.2); MONOCYTES # (AUTO) 0.4 10^3/uL (0.0-1.0); MONOCYTES % (AUTO) 5 % (0-12); NEUTROPHILS # (AUTO) 4.7 10^3/uL (1.8-7.8); NEUTROPHILS % (AUTO) 60 % (42-75); PLATELET COUNT 169 10^3/uL (130-400); WHITE BLOOD COUNT 7.8 10^3/uL (4.3-11.0)
[2022-12-15 15:57] LABS: CHLORIDE 105 MMOL/L (98-107); POTASSIUM 4.7 MMOL/L (3.6-5.0); SODIUM 141 MMOL/L (135-145)
[2022-12-15 15:59] LABS: GLUCOSE 97 MG/DL (70-105); TOTAL PROTEIN 7.1 GM/DL (6.4-8.2)
[2022-12-15 16:00] LABS: CARBON DIOXIDE 25 MMOL/L (21-32)
[2022-12-15 16:01] LABS: BILIRUBIN,TOTAL 0.5 MG/DL (0.1-1.0)
[2022-12-15 16:03] LABS: ALKALINE PHOSPHATASE 63 U/L (40-136); CREATININE SERUM 1.89 MG/DL (0.60-1.30); GFR ESTIMATED 29
[2022-12-15 16:04] LABS: BUN/CREATININE RATIO 17
--- NOTE | 2022-12-15 16:05 | Diagnostic Imaging Report ---
EXAMINATION: Chest 1 view HISTORY: Chest pain. COMPARISON: 06/22/2022. FINDINGS: The lung volumes are normal. No focal consolidation is seen. No large pleural effusion or pneumothorax is seen. The cardiomediastinal silhouette is normal in size and contour. There is calcified aortic atherosclerotic plaque. No acute osseous abnormality is seen. IMPRESSION: 1. No acute pleuroparenchymal process. Dictated by: Dictated on workstation # [id number]
[2022-12-15 16:06] LABS: ALANINE AMINOTRANSFERASE 21 U/L (0-55); MAGNESIUM 1.8 MG/DL (1.6-2.4)
[2022-12-15 16:13] LABS: PROTHROMBIN TIME PATIENT 13.7 SEC (12.2-14.7)
--- NOTE | 2022-12-15 16:17 | ED Chest Pain ---
General Chief Complaint: Chest Pain Stated Complaint: CHEST PAINS Nursing Triage Note: PT PRESENTS TO ED VIA EMS FROM [facility]. PT REPORTS SHE WOKE UP THIS AM NAUSEATED AND VOMITED ONCE. PT REPORTS SHE DEVELOPED CENTRAL CP SOMETIME IN THE MORNING WELL. PT REPORTS CP HAS SUBSIDED SINCE ARRIVAL TO ED. PT DENIES SOA. Source: patient Exam Limitations: no limitations History of Present Illness Date Seen by Provider: Dec 15, 2022 Time Seen by Provider: 15:44 Initial Comments 67-year-old female presents to the ER with complaint of intermittent mild chest pain starting this morning around 8 AM. She reports that the pain radiates to her right axilla. She is also complaining of generalized allover back pain which is also intermittent. She reports 1 episode of vomiting today, uncertain if it was related to the chest pain. The last time she had chest pain was just before leaving the half-way to come to the ER. States that the pain lasts less than an hour when it is present. Denies change in the pain with exertion. Denies sweating with the pain. Denies shortness of air. Patient has had previous DC, states that she does not know if this feels the same. She is diabetic and has chronic kidney disease, is not on dialysis yet. She does not smoke, has never smoked. Allergies and Home Medications Allergies Coded Allergies: codeine (Verified Allergy, Severe, SOA, pt has rec Lortab, Percocet, morphine in the past, 11/17/20) bupropion (Verified Allergy, Mild, 11/16/20) COUGH isosorbide (Verified Allergy, Mild, 11/16/20) COUGH levofloxacin (Verified Allergy, Mild, 11/16/20) COUGH ramipril (Verified Allergy, Mild, 11/16/20) COUGH celecoxib (Unverified Allergy, Unknown, 03/08/15) cinacalcet (Verified Allergy, Unknown, 03/07/20) clarithromycin (Verified Allergy, Unknown, 03/07/20) hydrocodone (Verified Adverse Reaction, Unknown, 11/16/20) HYPOTENSION Patient Home Medication List Home Medication List Reviewed: Yes Acetaminophen (Acetaminophen) 500 Mg Tablet, 1,000 MG PO Q6H PRN for PAIN-MILD (1-4) OR TEMPATURE, (Reported) Entered as Reported by: KIKO CABELLO on 11/16/20 0900 Allopurinol (Allopurinol) 100 Mg Tablet, 100 MG PO 1200, (Reported) Entered as Reported by: АНДРЕЙ MAK on 09/10/20 1148 Alprazolam (Alprazolam) 0.5 Mg Tablet, 0.5 MG PO HS, (Reported) Entered as Reported by: АНДРЕЙ MAK on 02/13/22 1437 Amlodipine Besylate (Amlodipine Besylate) 10 Mg Tablet, 10 MG PO 1200, (Reported) Entered as Reported by: АНДРЕЙ MAK on 02/13/22 1437 Aspirin (Aspirin EC) 81 Mg Tablet.dr, 81 MG PO DAILY, (Reported) Entered as Reported by: АНДРЕЙ MAK on 09/14/20 1539 Atorvastatin Calcium (Atorvastatin Calcium) 80 Mg Tablet, 80 MG PO HS, (Reported) Entered as Reported by: АНДРЕЙ MAK on 09/10/20 1148 Clopidogrel Bisulfate (Plavix) 75 Mg Tablet, 75 MG PO 1200, (Reported) Entered as Reported by: АНДРЕЙ MAK on 09/14/20 1539 Docusate Sodium (Docusate Sodium) 100 Mg Capsule, 100 MG PO Q12H, (Reported) Entered as Reported by: АНДРЕЙ MAK on 06/19/22 0940 Ergocalciferol (Vitamin D2) (Vitamin D2) 1,250 Mcg (71798 Unit) Capsule, 1,250 MCG PO WEEK, (Reported) Entered as Reported by: АНДРЕЙ MAK on 02/13/22 1437 Gabapentin (Gabapentin) 100 Mg Capsule, 100 MG PO HS, (Reported) Entered as Reported by: АНДРЕЙ MAK on 02/13/22 1437 Insulin NPH Human Isophane (Novolin N) 100 Unit/Ml Vial, 40 UNIT SQ HS, (Repor tanna) Entered as Reported by: KIKO CABELLO on 11/16/20 0851 Insulin NPH Human Isophane (Novolin N) 100 Unit/Ml Vial, 35 UNIT SQ DAILY, (Reported) Entered as Reported by: KIKO CABELLO on 11/16/20 0851 Insulin Regular, Human (Humulin R) 100 Unit/Ml Soln, UNITS SQ TIDAC, (Reported) Entered as Reported by: KIKO CABELLO on 11/16/20 0851 Losartan Potassium (Losartan Potassium) 100 Mg Tablet, 100 MG PO DAILY, (Reported) Entered as Reported by: АНДРЕЙ MAK on 06/19/22 0940 Melatonin (Melatonin) 5 Mg Tablet, 5 MG PO HS, (Reported) Entered as Reported by: АНДРЕЙ MAK on 11/17/20 1307 Pantoprazole Sodium (Pantoprazole Sodium) 40 Mg Tablet.dr, 40 MG PO 1200, (Reported) Entered as Reported by: KIKO CABELLO on 11/16/20 0851 Polyethylene Glycol 3350 (Polyethylene Glycol 3350) 17 Gram Powd.pack, 17 GM PO BID PRN for CONSTIPATION-1ST LINE Prescribed by: PATRICE RODNEY on 06/26/22 0804 Ranolazine (Ranolazine ER) 1,000 Mg Tab.er.12h, 1,000 MG PO Q12H, (Reported) Entered as Reported by: АНДРЕЙ MAK on 06/19/22 0940 Sertraline HCl (Sertraline HCl) 25 Mg Tablet, 25 MG PO HS, (Reported) Entered as Reported by: АНДРЕЙ MAK on 03/08/20 1331 Review of Systems Review of Systems Constitutional: see HPI Past Xobkper-Dgvsuh-Owoaov Hx Patient Social History Tobacco Use?: No Substance use?: No Alcohol Use?: No Pt feels they are or have been: No Immunizations Up To Date Tetanus Booster (TDap): Unknown First/Initial COVID19 Vaccinat: X2 Second COVID19 Vaccination Phill: X2 Third COVID19 Vaccination Date: X2 Seasonal Allergies Seasonal Allergies: No Past Medical History Surgery/Hospitalization HX: PT HAS HX OF LEFT TOTAL HIP SURGERY, GALLBLADDER, TOTAL HYST, PMH; TYPE 2 DM, HTN, hyperlipidemia, tia, mi, constipation, insomnia, frequent falls. Surgeries: Yes (HYSTERECTOMY 1997, LAP. PRIETO 5-6 YRS. AGO, T&A-49 YRS. 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 Sexually Transmitted Disease: No HIV/AIDS: No Genitourinary: Yes (CHRONIC KIDNEY DISEASE) Kidney Stones, Renal Failure Gastrointestinal: Yes (GASTROPARESIS) Gastroesophageal Reflux, Chronic Constipation Musculoskeletal: Yes (HISTORY OF FALLS/WEAKNESS) Osteoporosis, Arthritis, Back Injury Endocrine: Yes Diabetes, Insulin dep HEENT: Yes (CHRONIC BLURRINESS OF RT EYE) Chronic Ear Infection Hearing Impairment: Hard of Hearing Cancer: No Psychosocial: Yes Sleep Difficulties, Anxiety, Depression Integumentary: Yes Psoriasis Blood Disorders: No Adverse Reaction/Blood Tranf: No Family Medical History Cancer (lung and ovarian) 09 BROTHER, Onset:30's - 40 09 SISTER, Onset:60 years & older Congenital heart disease (mitral valve prolapse) 09 SISTER 09 SISTER Congestive heart failure 03 FATHER, Onset:60 years & older 03 MOTHER, Onset:50's - 60 09 SISTER, Onset:60 years & older Family history: Arthritis 03 MOTHER, Onset:60 years & older Family history: Diabetes mellitus 03 FATHER, Onset:60 years & older 09 SISTER, Onset:50's - 60 Family history: Gastrointestinal disease 03 FATHER, Onset:50's - 60 Hereditary disease (HTN) 09 SISTER, Onset:40's - 50 History of - disorder (Urinary problems) 09 SISTER, Onset:60 years & older 09 SISTER, Onset:20's - 25 History of - respiratory disease (asthma) 09 SISTER Hypercholesterolemia 09 SISTER, Onset:50's - 60 Psychotic disorder (anxiety) 09 SISTER, Onset:30's - 40 Heart Disease Physical Exam Vital Signs Vital Signs - First Documented 12/15/22 15:36 Temp 37.1 Pulse 87 Resp 16 B/P (MAP) 147/94 (111) Pulse Ox 98 Capillary Refill : Less Than 3 Seconds Height, Weight, BMI Height: 5'6.00" Weight: 220lbs. 10.0oz. 100.484693kf; 33.00 BMI Method:Estimated General Appearance: No Apparent Distress, WD/WN Neck: Normal Inspection, Supple Respiratory: Lungs Clear, Normal Breath Sounds, No Accessory Muscle Use, No Respiratory Distress Cardiovascular: Regular Rate, Rhythm Extremity: Normal Inspection, Normal Range of Motion Neurologic/Psychiatric: Alert, Normal Mood/Affect Skin: Normal Color, Warm/Dry Progress/Results/Core Measures Results/Orders Lab Results Laboratory Tests Test 12/15/22 15:40 12/15/22 18:35 Range/Units White Blood Count 7.8 4.3-11.0 10^3/uL Red Blood Count 3.78 L 3.80-5.11 10^6/uL Hemoglobin 12.7 11.5-16.0 g/dL Hematocrit 37 35-52 % Mean Corpuscular Volume 98 80-99 fL Mean Corpuscular Hemoglobin 34 25-34 pg Mean Corpuscular Hemoglobin Concent 34 32-36 g/dL Red Cell Distribution Width 12.5 10.0-14.5 % Platelet Count 169 130-400 10^3/uL Mean Platelet Volume 11.4 9.0-12.2 fL Immature Granulocyte % (Auto) 1 % Neutrophils (%) (Auto) 60 42-75 % Lymphocytes (%) (Auto) 32 12-44 % Monocytes (%) (Auto) 5 0-12 % Eosinophils (%) (Auto) 2 0-10 % Basophils (%) (Auto) 0 0-10 % Neutrophils # (Auto) 4.7 1.8-7.8 10^3/uL Lymphocytes # (Auto) 2.5 1.0-4.0 10^3/uL Monocytes # (Auto) 0.4 0.0-1.0 10^3/uL Eosinophils # (Auto) 0.1 0.0-0.3 10^3/uL Basophils # (Auto) 0.0 0.0-0.1 10^3/uL Immature Granulocyte # (Auto) 0.0 0.0-0.1 10^3/uL Prothrombin Time 13.7 12.2-14.7 SEC INR Comment 1.0 0.8-1.4 Activated Partial Thromboplast Time 29 24-35 SEC Sodium Level 141 135-145 MMOL/L Potassium Level 4.7 3.6-5.0 MMOL/L Chloride Level 105 98-107 MMOL/L Carbon Dioxide Level 25 21-32 MMOL/L Anion Gap 11 5-14 MMOL/L Blood Urea Nitrogen 33 H 7-18 MG/DL Creatinine 1.89 H 0.60-1.30 MG/DL Estimat Glomerular Filtration Rate 29 BUN/Creatinine Ratio 17 Glucose Level 97 70-105 MG/DL Calcium Level 11.0 H 8.5-10.1 MG/DL Corrected Calcium 11.0 H 8.5-10.1 MG/DL Magnesium Level 1.8 1.6-2.4 MG/DL Total Bilirubin 0.5 0.1-1.0 MG/DL Aspartate Amino Transf (AST/SGOT) 23 5-34 U/L Alanine Aminotransferase (ALT/SGPT) 21 0-55 U/L Alkaline Phosphatase 63 40-136 U/L Troponin I < 0.028 < 0.028 <0.028 NG/ML Total Protein 7.1 6.4-8.2 GM/DL Albumin 4.0 3.2-4.5 GM/DL My Orders Orders - NATHAN FRAIRE BUFFER MACHINE Cbc And Automated Diff (12/15/22 15:44) Magnesium (12/15/22 15:44) Chest 1 View, Ap/Pa Only (12/15/22 15:44) Comprehensive Metabolic Panel (12/15/22 15:44) Protime With Inr (12/15/22 15:44) Partial Thromboplastin Time (12/15/22 15:44) Monitor-Rhythm Ecg Trace Only (12/15/22 15:44) Ed Iv/Invasive Line Start (12/15/22 15:44) Troponin I Faisal (12/15/22 15:44) Troponin I Faisal (12/15/22 18:44) Ekg Tracing (12/15/22 18:44) Vital Signs/I&O 12/15/22 12/15/22 15:36 19:52 Temp 37.1 Pulse 87 85 Resp 16 20 B/P (MAP) 147/94 (111) 152/98 Pulse Ox 98 95 Blood Pressure Mean: 111 Progress Progress Note : Progress Note Patient seen and evaluated, resting comfortably in bed, no acute distress. Based on exam and symptoms, work-up initiated included CBC, CMP, magnesium, troponin, coags, chest x-ray, EKG. EKG shows no significant Q waves, ST elevation, or T wave inversion. 1705 Labs and chest x-ray reviewed. CBC grossly normal. CMP shows elevated BUN 33, elevated creatinine 1.89, decreased GFR 29. These are similar to previous labs. Troponin negative. Magnesium negative. Coags normal. Chest x-ray shows no acute cardiopulmonary process. We will repeat a 3-hour troponin and EKG. 1939 repeat troponin negative. Repeat EKG shows no changes. Results discussed with patient. I believe patient is stable for discharge. Chest pain likely noncardiac related. Patient instructed to follow-up with loan administrator. Discharge instructions and return precautions provided. Initial ECG Impression Date: Dec 15, 2022 Initial ECG Impression Time: 15:44 Initial ECG Rate: 86 Initial ECG Rhythm: Normal Sinus Initial ECG Impression: Nonspecific Changes Initial ECG Comparisson: Unchanged EKG : EKG Time: 18:56 Rate: 86 Rhythm: Normal Sinus Intervals: Normal ECG Comparisson: Unchanged ECG Impression: Nonspecific Changes Diagnostic Imaging Diagonstic Imaging: Xray Plain Films/CT/US/NM/MRI: chest Comments [facility] [place], [place] NAME: CARMELA CARVALHO [facility] REC#: [id number] PT STATUS: REG ER : 1955 PHYSICIAN: NATHAN FRAIRE APRN ADMIT DATE: 12/15/22/ER Signed Date of Exam:12/15/22 CHEST 1 VIEW, AP/PA ONLY EXAMINATION: Chest 1 view HISTORY: Chest pain. COMPARISON: 06/22/2022. FINDINGS: The lung volumes are normal. No focal consolidation is seen. No large pleural effusion or pneumothorax is seen. The cardiomediastinal silhouette is normal in size and contour. There is calcified aortic atherosclerotic plaque. No acute osseous abnormality is seen. IMPRESSION: 1. No acute pleuroparenchymal process. Dictated by: Dictated on workstation # [id number] Dict: 12/15/22 1603 Trans: 12/15/22 160 [facility] [id number] Interpreted by: BLAYNE SALGADO DO Electronically signed by: BLAYNE SALGADO DO 12/15/22 1609 Departure Impression Primary Impression: Chest pain Disposition: 01 HOME, SELF-CARE Condition: Stable Departure-Patient Inst. Decision time for Depature: 19:42 Referrals: PATRICE RODNEY MD (PCP/Family) Primary Care Physician Patient Instructions: Chest Pain That Is Not Caused by the Heart (DC) Add. Discharge Instructions: Follow-up with your loan administrator. Return if you have crushing chest pain, severe shortness of breath, sweating with the chest pain, or any other new, concerning, or worsening symptoms. All discharge instructions reviewed with patient and/or family. Voiced understanding. NATHAN FRAIRE APRN Dec 15, 2022 16:17
[2022-12-15 19:52] VITALS: BP 152/98
== END 2022-12-15 20:38 | disposition home or self-care (01) ==
LOC: EDUNIT# 15:31 → ER 15:33
DX: R07.9 Chest pain, unspecified (principal); I25.2 Old myocardial infarction; E11.9 Type 2 diabetes mellitus without complications; Z79.4 Long term (current) use of insulin
CPT/HCPCS: 36415; 71045; 80053; 83735; 84484; 85025; 85610; 85730; 93005; 93041